=== PATIENT | female | born 1990 | race Caucasian/White ===

== ENCOUNTER 2019-10-24 18:37 | Emergency (ER) | payer MEDICAID, SELFPAY ==
[2019-10-24 18:56] VITALS: BP 140/93; PULSE 117; RESP 16; TEMP 36.8; O2SAT 97
--- NOTE | 2019-10-24 18:57 | ED_ITS ---
HPI - Abdominal Pain General: Chief Complaint: General Medical Stated Complaint: ABD/BACK PAIN Time Seen by Provider: 10/24/19 18:46 Source: patient Mode of arrival: ambulatory Limitations: no limitations History of Present Illness: HPI narrative: Patient is a 29-year-old female who presents to ED today with multiple medical complaints; patient states earlier today she was having a left lower abdominal pain as well as left flank pain that seem to radiate around; she states she has had this pain intermittently for years and is convinced it is related to her heart; she apparently was told at one point from a provider in a women's alf that she had a hole in her heart ; patient denies chest pain, shortness of breath, lightheadedness, dizziness, exercise intolerance; what she reports is intermittent abdominal and back pains; she has been seen by her PCP Dr. Fuentes for this previously; she denies changes in urinary or bowel habits; denies fever/chills; patient is a r ather poor historian and it is hard to follow her history; she keeps telling me she was diagnosed with heart previously. MD elicited complaint: abdominal pain Onset (ago): year(s) Pain Consistency: intermittent Associated Symptoms: Denies chills, diarrhea, dysuria, fever(s), heartburn, nausea, syncope and vomiting Review of Systems Const: Denies: fever, chills, body aches, fatigue or malaise Eyes: Denies: change in vision or blurry vision ENMT: Denies: throat pain, enlarged tonsils or painful swallowing Card: Denies: chest pain, palpitations, irregular heart rhythm, edema, swelling of feet/ankles, lightheadedness, syncope, pre-syncope, shortness of breath on exertion, shortness of breath when lying down or leg pain with exertion Resp: Denies: shortness of breath, productive cough, pain on inspiration, coughing up blood or chest congestion GI: Reports: abdominal pain; Denies: nausea, vomiting, heartburn/indigestion or diarrhea : Reports: flank pain; Denies: difficulty urinating, painful urination, urinary frequency, urinary urgency, urinary hesitancy or urinary dribbling Musc: Denies: neck pain, back pain, extremity pain, extremity swelling, joint pain or joint swelling Skin/Breast: Denies: rash Neuro: Denies: headache, numbness in extremities, weakness in extremities, changes in sensation or lack of coordination PFSH ED PFSH: Statuses (acute, chronic, etc) shown below reflect problem list status as previously entered and may not be historically accurate Social History Smoking and tobacco status: never smoked Physical Exam Const: COMMON NORMALS: no apparent distress, average body habitus, oriented x3, no limitations, alert and well nourished HENMT: COMMON NORMALS: normocephalic, head/scalp atraumatic, external ears normal, EAC's normal, TM's normal bilaterally and external nose normal HEAD & SCALP: normocephalic and atraumatic FACE & SINUS: normal facial exam NOSE: external nose normal EXTERNAL EAR: Yes external ears normal EXTERNAL AUDITORY CANAL: EAC's normal TYMPANIC MEMBRANE: TM's normal bilaterally THROAT: posterior oropharynx normal, tonsils normal and uvula midline Eye: COMMON NORMALS: PERRL and EOMs intact bilaterally PUPIL: Yes PERRL Neck/C-Spine: COMMON NORMALS: full ROM, no lymphadenopathy, supple and no meningeal signs Lymph: LYMPHATIC: no lymphadenopathy noted Resp: COMMON NORMALS: normal respiratory effort and clear to auscultation bilaterally AUSCULTATION: clear to auscultation bilaterally Cardio: COMMON NORMALS: regular rhythm RATE: tachycardic (mild) RHYTHM: regular rhythm GI: COMMON NORMALS: normal to inspection, nondistended, normoactive bowel sounds, soft to palpation, non-tender, no hepatosplenomegaly and no masses PALPATION: Yes soft and Yes no hepatosplenomegaly : BLADDER/KIDNEY EXAM: Yes CVA tenderness (very minor L) Back/Pelvis: COMMON NORMALS: thoracic and lumbar spine normal to inspection, thoraco-lumbar ROM normal and straight leg raise negative bilaterally GENERAL BACK: Yes CVA tenderness (very minor L) Extremity: COMMON NORMALS: normal to inspection Neuro: COMMON NORMALS: oriented x3 SENSORIUM/ORIENTATION: Yes alert MENINGEAL SIGNS: Yes no meningeal signs Skin: COMMON NORMALS: no rashes or lesions noted GENERAL SKIN EXAM: no rashes or lesions noted Course Vital Signs: Vital signs: Vital Signs Temperature 98.2 F 10/24/19 18:56 Pulse Rate 116 H 10/24/19 20:58 Respiratory Rate 18 10/24/19 20:58 Blood Pressure 125/94 10/24/19 20:58 Pulse Oximetry 96 02/06/20 20:58 MDM - Abdominal Pain MDM Narrative: Medical decision making narrative: Patient's physical exam is unremarkable. Her lab work today is non-concerning. She does have blood in her urine however is currently on her menstrual cycle. She was found to be tachycardic throughout her stay. Patient's symptoms have been intermittent for years. She has been seen by PCP for this. There does not seem to be any new concerns today. I do not feel any additional work-up is indicated on today's visit. Recommend she contact Dr. Fuentes for continued symptoms to see if any further work-up from an outpatient might be indicated for patient. Lab Data: Labs: Lab Results 10/24/19 10/24/19 10/24/19 Range/Units 19:09 19:09 19:09 WBC 9.2 (4.0-10.0) 10^3/ uL RBC 4.02 L (4.1-5.3) 10^6/u L Hgb 12.7 (11.5-15.3) g/dL Hct 37.1 (37.0-47.0) % MCV 92.3 (81-99) fL MCH 31.6 (28.0-34.0) pg MCHC 34.2 (30.0-36.0) g/dL RDW 12.3 (12.1-15.1) % Plt Count 342 (130-400) 10^3/c mm MPV 9.3 (7.4-10.4) fL Neut % (Auto) 57.6 % Lymph % (Auto) 31.3 % Roosevelt % (Auto) 8.5 % Eos % (Auto) 1.9 % Baso % (Auto) 0.5 % Neut # (Auto) 5.3 (1.8-7.7) 10^3/u L Lymph # (Auto) 2.9 (0.8-4.8) 10^3/u L Roosevelt # (Auto) 0.8 (0.2-0.9) 10^3/u L Eos # (Auto) 0.2 (0.0-0.8) 10^3/u L Baso # (Auto) 0.1 (0.0-0.1) 10^3/u L Nucleated RBC % (a uto) 0 % Nucleated RBCs # 0.0 /100WBC Sodium 138 (136-145) mmol/L Potassium 3.5 (3.5-5.1) mmol/L Chloride 101 (98-107) mmol/L Carbon Dioxide 25 (22-29) mmol/L Anion Gap 15.5 (5-19) BUN 12 (6-20) mg/dL Creatinine 1.0 H (0.5-0.9) mg/dL GFR Calculation 66.0 L (90-130) mL/min Glucose 129 H (65-115) mg/dL Calcium 10.1 (8.5-10.5) mg/dL Total Bilirubin 0.3 (0.15-1.2) mg/dL AST 22 (0-32) U/L ALT 18 (0-33) U/L Alkaline Phosphata se 115 H (35-105) IU/L Troponin T Gen 5 n g/L (0-10) ng/mL Total Protein 8.0 (6.6-8.7) g/dL Albumin 4.8 (3.5-5.2) g/dL Globulin 3.2 (1.3-4.6) g/dL Lipase 25 (13-60) U/L HCG, Qual Negative (Negative) Urine Color (Yellow) Urine Appearance (CLEAR) Urine pH (5-7) Ur Specific Gravit y (1.005-1.030) Urine Protein (Negative) Urine Glucose (UA) (Normal) Urine Ketones (Negative) Urine Occult Blood (Negative) Urine Nitrate (Negative) Urine Bilirubin (NEGATIVE) Urine Urobilinogen (Negative) mg/dL Ur Leukocyte Yoanna ase (Negative) Urine RBC (0-2) /hpf Urine WBC (0-5) /hpf Ur Squamous Epith Cells (0-5) Urine Bacteria (NONE) Urine Opiates Scre en (Negative) ng/mL Ur Barbiturates Sc reen (Negative) ng/mL Ur Phencyclidine S crn (Negative) ng/mL Ur Amphetamines Sc reen (Negative) ng/mL U Benzodiazepines Scrn (Negative) ng/mL Urine Cocaine Scre en (Negative) ng/mL U Marijuana (THC) Screen (Negative) ng/mL 10/24/19 10/24/19 10/24/19 Range/Units 19:09 19:32 19:32 WBC (4.0-10.0) 10^3/ uL RBC (4.1-5.3) 10^6/u L Hgb (11.5-15.3) g/dL Hct (37.0-47.0) % MCV (81-99) fL MCH (28.0-34.0) pg MCHC (30.0-36.0) g/dL RDW (12.1-15.1) % Plt Count (130-400) 10^3/c mm MPV (7.4-10.4) fL Neut % (Auto) % Lymph % (Auto) % Roosevelt % (Auto) % Eos % (Auto) % Baso % (Auto) % Neut # (Auto) (1.8-7.7) 10^3/u L Lymph # (Auto) (0.8-4.8) 10^3/u L Roosevelt # (Auto) (0.2-0.9) 10^3/u L Eos # (Auto) (0.0-0.8) 10^3/u L Baso # (Auto) (0.0-0.1) 10^3/u L Nucleated RBC % (a uto) % Nucleated RBCs # /100WBC Sodium (136-145) mmol/L Potassium (3.5-5.1) mmol/L Chloride (98-107) mmol/L Carbon Dioxide (22-29) mmol/L Anion Gap (5-19) BUN (6-20) mg/dL Creatinine (0.5-0.9) mg/dL GFR Calculation (90-130) mL/min Glucose (65-115) mg/dL Calcium (8.5-10.5) mg/dL Total Bilirubin (0.15-1.2) mg/dL AST (0-32) U/L ALT (0-33) U/L Alkaline Phosphata se (35-105) IU/L Troponin T Gen 5 n g/L 7 (0-10) ng/mL Total Protein (6.6-8.7) g/dL Albumin (3.5-5.2) g/dL Globulin (1.3-4.6) g/dL Lipase (13-60) U/L HCG, Qual (Negative) Urine Color Yellow (Yellow) Urine Appearance Turbid (CLEAR) Urine pH 6 (5-7) Ur Specific Gravit y 1.025 (1.005-1.030) Urine Protein Neg (Negative) Urine Glucose (UA) Norm (Normal) Urine Ketones Negative (Negative) Urine Occult Blood 3+ H (Negative) Urine Nitrate Negative (Negative) Urine Bilirubin Neg (NEGATIVE) Urine Urobilinogen 4 H (Negative) mg/dL Ur Leukocyte Yoanna ase Negative (Negative) Urine RBC >100 H (0-2) /hpf Urine WBC 5-10 H (0-5) /hpf Ur Squamous Epith Cells 5-10 H (0-5) Urine Bacteria 3+ H (NONE) Urine Opiates Scre en Negative (Negative) ng/mL Ur Barbiturates Sc reen Negative (Negative) ng/mL Ur Phencyclidine S crn Negative (Negative) ng/mL Ur Amphetamines Sc reen Negative (Negative) ng/mL U Benzodiazepines Scrn Negative (Negative) ng/mL Urine Cocaine Scre en Negative (Negative) ng/mL U Marijuana (THC) Screen Negative (Negative) ng/mL Discharge Plan Discharge Patient Disposition: Home, Self-Care Clinical Impression: Multiple complaints Condition: Stable Prescriptions: No Action Anxiety Pill RF: 0 aspirin 325 mg Tablet 325 mg PO DAILY RF: 0 Sleep Aid (doxylamine) 25 mg Tablet 25 mg PO Q6H PRN (Reason: Sleep) RF: 0 Discharge Orders: Discharge Order (Routine); Ordered 10/24/19 Ordered By: Ana Alanis Referrals: Emory Fuentes MD [Primary Care Provider] - Discharge Diet: Usual diet Discharge Activity: Resume usual activity Activity Restrictions/Additional Instructions: As discussed your work-up reveals no emergent process. Please follow-up with Dr. Fuentes for continued symptoms. Discharge Date/Time: 10/24/19 20:56 Coding Level of Care Code ED Unloader Operator for Chg Fwd Exam Problem Focused
--- NOTE | 2019-10-24 19:19 | ECG_ITS ---
Measurements Intervals [place] Rate: 106 P: 36 RI: 145 QRS: 17 QRSD: 101 T: 17 QT: 345 QTc: 459 SINUS TACHYCARDIA ABNORMAL RHYTHM ECG Compared to ECG 05/08/2019 23:25:48 Sinus rhythm no longer present Sinus arrhythmia no longer present Electronically Signed On 10-25-2019 22:18:07 GLOBAL ACCOUNT EXECUTIVE by Anders Hardy M.D. [id number]
[2019-10-24 19:23] LABS: Basophils # 0.1 10^3/uL (0.0-0.1); Basophils % 0.5 %; Eosinophils # 0.2 10^3/uL (0.0-0.8); Eosinophils % 1.9 %; Hematocrit 37.1 % (37.0-47.0); Hemoglobin 12.7 g/dL (11.5-15.3); Lymphocytes # 2.9 10^3/uL (0.8-4.8); Lymphocytes % 31.3 %; Mean Corpuscular HGB Conc 34.2 g/dL (30.0-36.0); Mean Corpuscular Hemoglobin 31.6 pg (28.0-34.0); Mean Corpuscular Volume 92.3 fL (81-99); Mean Platelet Volume 9.3 fL (7.4-10.4); Monocytes # 0.8 10^3/uL (0.2-0.9); Monocytes % 8.5 %; Neutrophils # 5.3 10^3/uL (1.8-7.7); Neutrophils % 57.6 %; Nucleated Red Blood Cells % 0 %; Platelet Count 342 10^3/cmm (130-400); Red Blood Count 4.02 10^6/uL (4.1-5.3); Red Cell Distribution Width 12.3 % (12.1-15.1); White Blood Count 9.2 10^3/uL (4.0-10.0)
[2019-10-24 19:44] LABS: HCG, Serum Qual Negative (Negative)
[2019-10-24 19:46] LABS: Alanine Aminotransferase 18 U/L (0-33); Albumin Level 4.8 g/dL (3.5-5.2); Alkaline Phosphatase 115 IU/L (35-105); Anion Gap 15.5 (5-19); Aspartate Amino Transferase 22 U/L (0-32); Blood Urea Nitrogen 12 mg/dL (6-20); Calcium 10.1 mg/dL (8.5-10.5); Carbon Dioxide 25 mmol/L (22-29); Chloride 101 mmol/L (98-107); Globulin 3.2 g/dL (1.3-4.6); Glucose 129 mg/dL (65-115); Lipase 25 U/L (13-60); Potassium 3.5 mmol/L (3.5-5.1); Sodium 138 mmol/L (136-145); Total Bilirubin 0.3 mg/dL (0.15-1.2)
[2019-10-24 20:05] LABS: Amphetamines Screen Urine Negative (Negative); Barbiturates Screen Urine Negative (Negative); Benzodiazepines Screen Urine Negative (Negative); Cocaine Screen Urine Negative (Negative); Opiate Screen Urine Negative (Negative); PCP Screen Urine Negative (Negative); THC Screen Urine Negative (Negative)
[2019-10-24 20:06] LABS: Add Urine Microscopic? YES; Bilirubin Urine Neg (NEGATIVE); Glucose Urine UA Norm (Normal); Ketones Urine Negative (Negative); Leukocyte Esterase Urine Negative (Negative); Protein Urine Neg (Negative); Urine Appearance Turbid (CLEAR); Urine Color Yellow (Yellow)
[2019-10-24 20:08] LABS: Nitrate Urine Negative (Negative)
[2019-10-24 20:10] LABS: Blood Urine 3+ (Negative); Specific Gravity, Urine 1.025 (1.005-1.030); Urobilinogen Urine 4 mg/dL (Negative); pH Urine 6 (5-7)
[2019-10-24 20:11] LABS: Add Urine Culture? Yes; Bacteria Urine 3+; RBC Urine >100 /hpf (0-2)
[2019-10-24 20:30] LABS: Troponin T (5th) Once 7 ng/mL (0-10)
[2019-10-24 20:58] VITALS: BP 125/94; PULSE 116; RESP 18; O2SAT 96
== END 2019-10-24 20:56 | disposition home or self-care (01) ==
PROVIDERS: Emergency Provider Physician Assistant; Family Provider Family Medicine; PCP Family Medicine
DX: R10.32 Left lower quadrant pain (principal); M54.9 Dorsalgia, unspecified
CPT/HCPCS: 80053; 80307; 81001; 83690; 84484; 84703; 85025; 87086; 93005; 99282; 99283; A9270

== ENCOUNTER 2019-10-24 23:46 | Emergency (ER) | payer MEDICAID, SELFPAY ==
[2019-10-24 23:48] VITALS: BP 166/126; PULSE 154; RESP 30; TEMP 37.1; O2SAT 100; BMI 28.3
--- NOTE | 2019-10-24 23:55 | ED_ITS ---
HPI - General Adult General: Chief complaint: General Medical Stated complaint: N/V Time Seen by Provider: 10/24/19 23:48 Source: patient Mode of arrival: EMS Limitations: no limitations History of Present Illness: HPI narrative: Patient is a 29-year-old female who presents to ED today yet again for evaluation; patient was just released from our facility a few hours ago. At that visit she complained of chronic intermittent left abdominal and flank pain. Her labs were unremarkable during that visit. EMS states they were called for complaints of nausea and vomiting however during my exam with patient she complains of chest pains and low back pain. She states she is not having any symptoms related to her previous visit. She denies shortness of breath, difficulty breathing. Denies fever/chills. Denies lightheadedness/dizziness. Associated symptoms: Reports chest pain; Deny dyspnea, headache(s), nausea, rash, palpitations, syncope or vomiting Review of Systems Const: Denies: fever, chills, body aches, change in appetite, change in weight or fatigue Eyes: Denies: change in vision or blurry vision ENMT: Denies: throat pain, enlarged tonsils or painful swallowing Card: Reports: chest pain; Denies: palpitations, irregular heart rhythm, edema, lightheadedness, syncope, pre-syncope, shortness of breath on exertion, shortness of breath when lying down, leg pain with exertion or bluish discoloration of hands/feet Resp: Denies: shortness of breath, productive cough, non-productive cough, pain on inspiration, change in phlegm color, coughing up blood or chest congestion GI: Denies: abdominal pain, nausea or vomiting : Denies: flank pain, difficulty urinating, painful urination, urinary frequency or urinary urgency Musc: Reports: back pain; Denies: neck pain, extremity pain or extremity swelling Skin/Breast: Denies: rash Neuro: Denies: headache, numbness in extremities, weakness in extremities, changes in sensation, lack of coordination or dizziness PFSH ED PFSH: Statuses (acute, chronic, etc) shown below reflect problem list status as previously entered and may not be historically accurate Social History Smoking and tobacco status: never smoked Female Reproductive History: Date of last menstrual period: 10/24/19 Physical Exam Const: COMMON NORMALS: no apparent distress, average body habitus, oriented x3, no limitations, alert and well nourished HENMT: COMMON NORMALS: normocephalic and head/scalp atraumatic HEAD & SCALP: normocephalic and atraumatic Eye: COMMON NORMALS: PERRL and EOMs intact bilaterally PUPIL: Yes PERRL Neck/C-Spine: COMMON NORMALS: full ROM, no lymphadenopathy and no meningeal signs Chest: COMMONS NORMALS: inspection of chest normal and palpation of breasts normal Resp: COMMON NORMALS: normal respiratory effort and clear to auscultation bilaterally AUSCULTATION: clear to auscultation bilaterally Cardio: COMMON NORMALS: regular rhythm RATE: tachycardic RHYTHM: regular rhythm GI: COMMON NORMALS: normal to inspection, nondistended, normoactive bowel sounds, soft to palpation, non-tender, no hepatosplenomegaly and no masses PALPATION: Yes soft and Yes no hepatosplenomegaly : COMMON NORMALS: Yes no CVA tenderness BLADDER/KIDNEY EXAM: Yes no CVA tenderness Back/Pelvis: COMMON NORMALS: no CVA tenderness, thoracic and lumbar spine normal to inspection, no thoracic nor lumbar tenderness, thoraco-lumbar ROM normal and straight leg raise negative bilaterally Extremity: COMMON NORMALS: normal to inspection Neuro: GANESH COMA SCALE: document GCS findings Ganesh coma scale eye opening: Spontaneous Ganesh coma scale verbal response: Orientated [place] coma scale motor response: Obey commands Ganesh coma scale total score: 15 COMMON NORMALS: oriented x3, CN's II-XII intact bilaterally, moves all extremities, no focal motor deficits and no sensory deficits noted SENSORIUM/ORIENTATION: Yes alert MENINGEAL SIGNS: Yes no meningeal signs Skin: COMMON NORMALS: no rashes or lesions noted GENERAL SKIN EXAM: no rashes or lesions noted Course Reevaluation(s): Reevaluation #1: Reevaluation of patient reveals her sleeping in her room in no acute distress. She does not complain of chest pain anymore. Has some complaint of lower lumbar pain that she states she has had previously. This does not seem to be reproducible. She has no urinary complaints. Vital Signs: Vital signs: Vital Signs Temperature 98.7 F 10/24/19 23:48 Pulse Rate 115 H 10/25/19 00:34 Respiratory Rate 18 10/25/19 00:34 Blood Pressure 137/85 10/25/19 00:34 Pulse Oximetry 99 10/25/19 00:34 MDM - General Adult MDM Narrative: Medical decision making narrative: This makes patient's second visit today for various symptoms. Patient has been seen in our facility several times for multiple medical complaints. She clinically appears in no acute dist ress on both visits. Her labs performed on her last visit were non-concerning. EKG and troponin were repeated on today's visit and showed no acute changes. CXR is normal. She does have unexplained tachycardia-possibly related to anxiety. There does not seem to be any infectious process, pericarditis/endocarditis, WPW or other accessory pathway syndromes. She is in no acute distress currently. Recommend she follow-up with Dr. Fuentes for continued symptoms. Lab Data: Labs: Lab Results 10/25/19 Range/Units 00:08 Troponin T Gen 5 n g/L 6 (0-10) ng/mL Imaging Data^: CXR: My impression: NAD EKG Data^: EKG 1: EKG interpretation date: 10/25/19 EKG interpretation time: 00:13 Prior EKG tracings: available for review Interpretation: Sinus tachycardia Rate [address] elevation or depression noted No acute changes noted from EKG from previous visit Discharge Plan Discharge Patient Disposition: Home, Self-Care Clinical Impression: Anxiety Condition: Stable Prescriptions: No Action Anxiety Pill RF: 0 aspirin 325 mg Tablet 325 mg PO DAILY RF: 0 Sleep Aid (doxylamine) 25 mg Tablet 25 mg PO Q6H PRN (Reason: Sleep) RF: 0 Discharge Orders: Discharge Order (Routine); Ordered 10/25/19 Ordered By: Ana Alanis Referrals: Emory Fuentes MD [Primary Care Provider] - Discharge Diet: Usual diet Discharge Activity: Increase activity as tolerated Activity Restrictions/Additional Instructions: Follow up with Dr. Fuentes as soon as possible for continued symptoms. Coding Level of Care Code ED Remote Sensing Technician for Chg Fwd Exam Problem Focused
--- NOTE | 2019-10-25 00:04 | ECG_ITS ---
Measurements Intervals [place] Rate: 121 P: 49 CA: 151 QRS: 7 QRSD: 102 T: 32 QT: 358 QTc: 508 SINUS TACHYCARDIA NONSPECIFIC T-WAVE ABNORMALITY ABNORMAL RHYTHM ECG Compared to ECG 05/08/2019 23:25:48 T-wave abnormality now present Sinus rhythm no longer present Sinus arrhythmia no longer present Electronically Signed On 10-25-2019 22:18:17 STUDENT RECORDS SPECIALIST by Anders Hardy M.D. [id number]
--- NOTE | 2019-10-25 00:05 | XR_ITS ---
WS: [id number] Portable AP upright chest, 10/25/2019 Clinical Data: cough/congestion Comparison: PA and lateral chest, 05/08/2019. Findings: No nodules, masses or effusions are seen. The heart is normal. The pulmonary vascularity is not increased. No pneumonia or pneumothorax is seen. 2 leads are on the chest wall. XR/XR chest 1V portable [id number] Impression: Negative chest.
[2019-10-25] MEDS: sodium chloride 0.9% 1,000 ML 999 ML IV (00:30)
[2019-10-25 00:31] LABS: Troponin T (5th) Once 6 ng/mL (0-10)
[2019-10-25] MEDS: LORazepam 2 mg/mL INJ 1 mL 1 MG IVP (00:31)
[2019-10-25 00:34] VITALS: BP 137/85; PULSE 115; RESP 18; O2SAT 99
[2019-10-25 01:35] VITALS: BP 103/73; PULSE 105; RESP 16; TEMP 36.4; O2SAT 96
== END 2019-10-25 01:37 | disposition home or self-care (01) ==
PROVIDERS: Emergency Provider Physician Assistant; Family Provider Family Medicine; PCP Family Medicine
DX: F41.9 Anxiety disorder, unspecified (principal); R40.2412 Glasgow coma scale score 13-15, at arrival to emergency department
CPT/HCPCS: 71045; 84484; 93005; 96361; 96374; 96375; 99282; 99283; J2060; J7030

== ENCOUNTER 2019-10-25 12:52 | Emergency (ER) | payer MEDICAID, SELFPAY ==
[2019-10-25] VITALS (23 sets, daily range): BP systolic 114–130; BP diastolic 80–94; PULSE 98–116; RESP 15–22; O2SAT 96–100; BMI 25.7
--- NOTE | 2019-10-25 12:54 | ED_ITS ---
Entered by Quinn Calderon, acting as scribe for HPI - Chest Pain General: Chief Complaint: Chest Pain Stated Complaint: Chest Pain Time Seen by Provider: 10/25/19 13:11 History of Present Illness: HPI narrative: 29 yo female presents with chest pain. Pt was sent here from [facility]. Pt states that she has been short of breath. Pt is lethargic. Pt won't open her eyes to answer questions. Patient appears to be under the influence of a sedative at the time she was first seen. Timing of current episode: increasing Associated symptoms: Deny abdominal pain, dyspnea, fever(s), nausea, palpitations, syncope or vomiting Review of Systems Const: Reports: fatigue and malaise; Denies: fever, chills, body aches or night sweats Eyes: Denies: change in vision or blurry vision ENMT: Denies: throat pain, oral sores/lesions, dental pain, nasal discharge or nasal congestion Card: Denies: chest pain, palpitations, irregular heart rhythm, edema, syncope, shortness of breath on exertion, shortness of breath when lying down or leg pain with exertion Resp: Denies: shortness of breath, productive cough, non-productive cough or wheezing GI: Denies: abdominal pain, nausea, vomiting, vomiting blood, coffee grounds in vomit, difficulty swallowing, heartburn/indigestion, diarrhea, constipation, cramping, blood in stool or black tarry stool : Denies: flank pain, painful urination, urinary frequency, urinary urgency, urinary incontinence or blood in urine Musc: Denies: neck pain, back pain, extremity pain, extremity swelling, joint pain or joint swelling Skin/Breast: Denies: rash, itching or redness Neuro: Denies: headache, numbness in extremities, weakness in extremities, changes in sensation, lack of coordination, difficulty walking, frequent falls, dizziness, vertigo or confusion Psych: Denies: anxiety, depression, loss of interest, visual hallucinations, auditory hallucinations, suicidal ideation or homicidal ideation Endo: Denies: excessive urination, excessive thirst, tired all the time or cold intolerance Sang/Lymph: Denies: easy bruising, easy bleeding, petechiae, enlarged lymph nodes or tender lymph nodes PFSH ED PFSH: Statuses (acute, chronic, etc) shown below reflect problem list status as previously entered and may not be historically accurate Social History Smoking and tobacco status: never smoked Female Reproductive History: Date of last menstrual period: 10/24/19 Physical Exam Const: COMMON NORMALS: no apparent distress and average body habitus GENERAL APPEARANCE: cooperative, well kempt and lethargic ORIENTATION/CONSCI OUSNESS: Yes lethargic HENMT: COMMON NORMALS: normocephalic, head/scalp atraumatic, EAC's normal, TM's normal bilaterally, external nose normal, moist oral mucous membranes and oropharynx normal HEAD & SCALP: normocephalic and atraumatic NOSE: external nose normal EXTERNAL AUDITORY CANAL: EAC's normal TYMPANIC MEMBRANE: TM's normal bilaterally MOUTH: oral and palatal mucosa normal, lip normal and tongue normal THROAT: posterior oropharynx normal and tonsils normal Eye: OTHER: lateral nystagmus Neck/C-Spine: COMMON NORMALS: full ROM, no lymphadenopathy, supple, no meningeal signs and thyroid normal THYROID: thyroid normal and asymmetrical Lymph: LYMPHATIC: no lymphadenopathy noted Resp: COMMON NORMALS: normal respiratory effort, no retractions, no use of accessory muscles and clear to auscultation bilaterally AUSCULTATION: clear to auscultation bilaterally Cardio: COMMON NORMALS: regular rate and regular rhythm RATE: regular rate RHYTHM: regular rhythm HEART SOUNDS: no murmurs GI: COMMON NORMALS: normal to inspection, nondistended, normoactive bowel so unds, soft to palpation and no hepatosplenomegaly PALPATION: Yes soft and Yes no hepatosplenomegaly : COMMON NORMALS: Yes no CVA tenderness BLADDER/KIDNEY EXAM: Yes no CVA tenderness Back/Pelvis: COMMON NORMALS: no CVA tenderness LUMBAR SPINE/LOWER BACK: Yes normal to inspection Extremity: COMMON NORMALS: no clubbing, cyanosis or edema, no calf tenderness and no pedal edema Neuro: SENSORIUM/ORIENTATION: Yes lethargic MENINGEAL SIGNS: Yes no meningeal signs Psych: APPEARANCE: Yes well kempt Skin: COMMON NORMALS: no rashes or lesions noted and skin turgor normal GENERAL SKIN EXAM: no rashes or lesions noted and turgor normal Course ED course: The time work-up is complete patient is feeling much better initially she appears that she is under the influence of symptoms improved we will go ahead and discharge her home encouraged to follow-up with her primary care doctor. She is completely resolved awake and alert and oriented x3 at this time. Reviewed her previous ER visits this is her third visit in less than 24 hours Vital Signs: Vital signs: Vital Signs Pulse Rate 98 10/25/19 15:43 Respiratory Rate 16 10/25/19 15:43 Blood Pressure 114/80 10/25/19 15:43 Pulse Oximetry 98 10/25/19 15:43 MDM - Chest Pain Lab Data: Labs: Lab Results 10/25/19 10/25/19 10/25/19 Range/Units 14:02 14:08 14:08 WBC 7.7 (4.0-10.0) 10^3/ uL RBC 3.94 L (4.1-5.3) 10^6/u L Hgb 12.4 (11.5-15.3) g/dL Hct 36.2 L (37.0-47.0) % MCV 91.9 (81-99) fL MCH 31.5 (28.0-34.0) pg MCHC 34.3 (30.0-36.0) g/dL RDW 12.5 (12.1-15.1) % Plt Count 344 (130-400) 10^3/c mm MPV 9.3 (7.4-10.4) fL Neut % (Auto) 66.3 % Lymph % (Auto) 24.4 % Glenn % (Auto) 7.9 % Eos % (Auto) 0.8 % Baso % (Auto) 0.5 % Neut # (Auto) 5.1 (1.8-7.7) 10^3/u L Lymph # (Auto) 1.9 (0.8-4.8) 10^3/u L Glenn # (Auto) 0.6 (0.2-0.9) 10^3/u L Eos # (Auto) 0.1 (0.0-0.8) 10^3/u L Baso # (Auto) 0.0 (0.0-0.1) 10^3/u L Nucleated RBC % (a uto) 0 % Nucleated RBCs # 0.0 /100WBC D-Dimer (0-0.59) ug/mIFE U Sodium 141 (136-145) mmol/L Potassium 3.7 (3.5-5.1) mmol/L Chloride 105 (98-107) mmol/L Carbon Dioxide 23 (22-29) mmol/L Anion Gap 16.7 (5-19) BUN 8 (6-20) mg/dL Creatinine 0.8 (0.5-0.9) mg/dL GFR Calculation 85.4 L (90-130) mL/min Glucose 113 (65-115) mg/dL Calcium 10.1 (8.5-10.5) mg/dL Total Bilirubin 0.4 (0.15-1.2) mg/dL AST 22 (0-32) U/L ALT 18 (0-33) U/L Alkaline Phosphata se 114 H (35-105) IU/L Total Protein 8.2 (6.6-8.7) g/dL Albumin 4.9 (3.5-5.2) g/dL Globulin 3.3 (1.3-4.6) g/dL Lipase 18 (13-60) U/L Urine Opiates Scre en Negative (Negative) ng/mL Ur Barbiturates Sc reen Negative (Negative) ng/mL Ur Phencyclidine S crn Negative (Negative) ng/mL Ur Amphetamines Sc reen Negative (Negative) ng/mL U Benzodiazepines Scrn Negative (Negative) ng/mL Urine Cocaine Scre en Negative (Negative) ng/mL U Marijuana (THC) Screen Negative (Negative) ng/mL 10/25/19 Range/Units 14:08 WBC (4.0-10.0) 10^3/ uL RBC (4.1-5.3) 10^6/u L Hgb (11.5-15.3) g/dL Hct (37.0-47.0) % MCV (81-99) fL MCH (28.0-34.0) pg MCHC (30.0-36.0) g/dL RDW (12.1-15.1) % Plt Count (130-400) 10^3/c mm MPV (7.4-10.4) fL Neut % (Auto) % Lymph % (Auto) % [place] % (Auto) % Eos % (Auto) % Baso % (Auto) % Neut # (Auto) (1.8-7.7) 10^3/u L Lymph # (Auto) (0.8-4.8) 10^3/u L Glenn # (Auto) (0.2-0.9) 10^3/u L Eos # (Auto) (0.0-0.8) 10^3/u L Baso # (Auto) (0.0-0.1) 10^3/u L Nucleated RBC % (a uto) % Nucleated RBCs # /100WBC D-Dimer <= 0.27 (0-0.59) ug/mIFE U Sodium (136-145) mmol/L Potassium (3.5-5.1) mmol/L Chloride (98-107) mmol/L Carbon Dioxide (22-29) mmol/L Anion Gap (5-19) BUN (6-20) mg/dL Creatinine (0.5-0.9) mg/dL GFR Calculation (90-130) mL/min Glucose (65-115) mg/dL Calcium (8.5-10.5) mg/dL Total Bilirubin (0.15-1.2) mg/dL AST (0-32) U/L ALT (0-33) U/L Alkaline Phosphata se (35-105) IU/L Total Protein (6.6-8.7) g/dL Albumin (3.5-5.2) g/dL Globulin (1.3-4.6) g/dL Lipase (13-60) U/L Urine Opiates Scre en (Negative) ng/mL Ur Barbiturates Sc reen (Negative) ng/mL Ur Phencyclidine S crn (Negative) ng/mL Ur Amphetamines Sc reen (Negative) ng/mL U Benzodiazepines Scrn (Negative) ng/mL Urine Cocaine Scre en (Negative) ng/mL U Marijuana (THC) Screen (Negative) ng/mL Discharge Plan Discharge Patient Disposition: Home, Self-Care Clinical Impression: Anxiety, Atypical chest pain, Altered mental status associated with intoxication Condition: Stable Prescriptions: No Action Anxiety Pill RF: 0 aspirin 325 mg Tablet 325 mg PO DAILY RF: 0 Sleep Aid (doxylamine) 25 mg Tablet 25 mg PO Q6H PRN (Reason: Sleep) RF: 0 Referrals: Emory Fuentes MD [Primary Care Provider] - Discharge Diet: Usual diet Discharge Activity: Increase activity as tolerated Patient Instructions: Abdominal Pain - Adult Activity Restrictions/Additional Instructions: Follow-up with Dr. Fuentes as needed Interventions: ED Discharge Assessment Last Done: 10/25/19 15:43 Discharge Date/Time: 10/25/19 15:51 Coding Level of Care Code ED International Sales Representative for Chg Fwd Exam Problem Focused The documentation recorded by the Kvng short Kialy, accurately reflects the service I personally performed and the decisions made by Huang dill Curtis L, Oct 25, 2019 12:52
--- NOTE | 2019-10-25 13:34 | ECG_ITS ---
Measurements Intervals [place] Rate: 123 P: 39 OR: 157 QRS: 1 QRSD: 91 T: 15 QT: 411 QTc: 588 SINUS TACHYCARDIA INCOMPLETE RIGHT BUNDLE BRANCH BLOCK [90+ ms QRS DURATION, TERMINAL R IN V1/V2, 4 NONSPECIFIC T-WAVE ABNORMALITY ABNORMAL RHYTHM ECG Compared to ECG 05/08/2019 23:25:48 Incomplete right bundle-branch block now present T-wave abnormality now present Sinus rhythm no longer present Sinus arrhythmia no longer present Electronically Signed On 10-25-2019 22:16:47 MONOTYPE MACHINIST by Anders Hardy M.D. [id number]
[2019-10-25 14:26] LABS: Basophils % 0.5 %; Eosinophils # 0.1 10^3/uL (0.0-0.8); Eosinophils % 0.8 %; Hematocrit 36.2 % (37.0-47.0); Hemoglobin 12.4 g/dL (11.5-15.3); Lymphocytes # 1.9 10^3/uL (0.8-4.8); Lymphocytes % 24.4 %; Mean Corpuscular HGB Conc 34.3 g/dL (30.0-36.0); Mean Corpuscular Hemoglobin 31.5 pg (28.0-34.0); Mean Corpuscular Volume 91.9 fL (81-99); Mean Platelet Volume 9.3 fL (7.4-10.4); Monocytes # 0.6 10^3/uL (0.2-0.9); Monocytes % 7.9 %; Neutrophils # 5.1 10^3/uL (1.8-7.7); Neutrophils % 66.3 %; Nucleated Red Blood Cells % 0 %; Platelet Count 344 10^3/cmm (130-400); Red Blood Count 3.94 10^6/uL (4.1-5.3); Red Cell Distribution Width 12.5 % (12.1-15.1); White Blood Count 7.7 10^3/uL (4.0-10.0)
[2019-10-25 14:40] LABS: Alanine Aminotransferase 18 U/L (0-33); Albumin Level 4.9 g/dL (3.5-5.2); Alkaline Phosphatase 114 IU/L (35-105); Anion Gap 16.7 (5-19); Aspartate Amino Transferase 22 U/L (0-32); Blood Urea Nitrogen 8 mg/dL (6-20); Calcium 10.1 mg/dL (8.5-10.5); Carbon Dioxide 23 mmol/L (22-29); Chloride 105 mmol/L (98-107); Creatinine Clr Calc Pharmacy 84.7042; Globulin 3.3 g/dL (1.3-4.6); Glomerular Filtration Rate 85.4 mL/min (90-130); Glucose 113 mg/dL (65-115); Lipase 18 U/L (13-60); Potassium 3.7 mmol/L (3.5-5.1); Sodium 141 mmol/L (136-145); Total Bilirubin 0.4 mg/dL (0.15-1.2); Total Protein 8.2 g/dL (6.6-8.7)
[2019-10-25 15:12] LABS: Amphetamines Screen Urine Negative (Negative); Barbiturates Screen Urine Negative (Negative); Benzodiazepines Screen Urine Negative (Negative); Cocaine Screen Urine Negative (Negative); Opiate Screen Urine Negative (Negative); PCP Screen Urine Negative (Negative); THC Screen Urine Negative (Negative)
[2019-10-25 15:32] LABS: D Dimer <= 0.27 ug/mIFEU (0-0.59)
== END 2019-10-25 15:51 | disposition home or self-care (01) ==
PROVIDERS: Emergency Provider Family Medicine; Family Provider Family Medicine; PCP Family Medicine
DX: R07.89 Other chest pain (principal); F41.9 Anxiety disorder, unspecified; R41.82 Altered mental status, unspecified
CPT/HCPCS: 36415; 51701; 80053; 80307; 83690; 85025; 85378; 93005; 99283; A9270

== ENCOUNTER 2019-10-27 09:00 | Emergency (ER) | payer MEDICAID, SELFPAY ==
[2019-10-27 09:02] VITALS: BP 123/89; PULSE 120; RESP 18; TEMP 37.4; O2SAT 100; BMI 27.9
--- NOTE | 2019-10-27 09:09 | ED_ITS ---
Entered by Quinn Calderon, acting as scribe for Selena Fajardo DO HPI - General Adult General: Chief complaint: General Medical Stated complaint: ELEVATED HEART RATE Time Seen by Provider: 10/27/19 09:19 History of Present Illness: HPI narrative: 29 yo female presents with elevated heart rate. Pt states that her jaw is hurting on her right side. Pt states that she was trying to be seen at urgent care yesterday for her heart rate and wanted a steroid shot. Pt states that the Urgent care wouldn't give her one. MD complaint: elevated heart rate. Onset (ago): day(s) Radiation: other (jaw) Severity: mild Pain Consistency: constant Relieving factors: none Exacerbating factors: none Associated symptoms: Reports headache(s); Deny chest pain, diaphoresis, dyspnea, malaise, nausea, rash, palpitations, syncope or vomiting Treatments prior to arrival: none Review of Systems Const: Denies: fever, chills, body aches, change in appetite, change in weight, fatigue, malaise, night sweats or diaphoresis Eyes: Denies: change in vision, blurry vision, blind spots, photophobia, eye discharge, eye redness, yellow eyes or increased production of tears ENMT: Denies: throat pain, uvular edema, enlarged tonsils, painful swallowing, hoarseness, mouth pain or swelling of lips/tongue Card: Denies: chest pain, palpitations, irregular heart rhythm, edema, swelling of feet/ankles, lightheadedness, syncope, pre-syncope, shortness of breath on exertion or shortness of breath when lying down Resp: Denies: shortness of breath, productive cough, non-productive cough, wheezing, stridor, pain on inspiration or change in phlegm color GI: Denies: abdominal pain, nausea, vomiting, vomiting blood, coffee grounds in vomit, difficulty swallowing, heartburn/indigestion, feeling full early, constipation or bloating : Denies: flank pain, difficulty urinating, painful urination, urinary frequency, urinary urgency, urinary hesitancy or urinary dribbling Musc: Denies: neck pain, back pain, extremity pain, extremity swelling, joint pain, joint swelling, redness or joint warmth Skin/Breast: Denies: rash, itching, redness, sensitivity to light, skin pain, skin tenderness or skin swelling Neuro: Reports: headache; Denies: numbness in extremities, weakness in extremities, changes in sensation, lack of coordination, difficulty walking, frequent falls or dizziness Psych: Denies: anxiety, depression, mood swings, panic attacks, sleeping less, sleeping more, hopelessness or loss of interest Endo: Denies: excessive urination, excessive thirst or tired all the time PFSH ED PFSH: Statuses (acute, chronic, etc) shown below reflect problem list status as previously entered and may not be historically accurate Social History Smoking and tobacco status: never smoked Female Reproductive History: Date of last menstrual period: 10/27/19 Physical Exam Const: COMMON NORMALS: alert ORIENTATION/CONSCIOUSNESS: Yes oriented to person, Yes oriented to place and Yes oriented to time HENMT: THROAT: no uvular edema Neck/C-Spine: COMMON NORMALS: full ROM and thyroid normal GENERAL: Yes normal visual inspection THYROID: thyroid normal Lymph: LYMPHATIC: no lymphadenopathy noted Resp: COMMON NORMALS: clear to auscultation bilaterally AUSCULTATION: clear to auscultation bilaterally Cardio: COMMON NORMALS: regular rhythm RATE: tachycardic RHYTHM: regular rhythm GI: INSPECTION: Yes normal to inspection Back/Pelvis: THORACIC SPINE/UPPER BACK: Yes normal to inspection Neuro: SENSORIUM/ORIENTATION: Yes alert, Yes oriented to person, Yes oriented to place and Yes oriented to time Course ED course: Patient arrived via EMS. She has mild tachycardia upon arrival and is in no distress. Lab, EKG, CXR and UDS all unremarkable, given Tylenol 1 G PO for her jaw pain. She has been advised to follow up with her pcp. Vital Signs: Vital signs: Vital Signs Temperature 99.4 F 10/27/19 09:02 Pulse Rate 117 H 10/27/19 09:14 Respiratory Rate 16 10/27/19 10:50 Blood Pressure 117/87 10/27/19 09:42 Pulse Oximetry 100 10/27/19 10:50 MDM - General Adult Differential Diagnosis: Differential Diagnosis: Drug toxicity, thyroid abnormalities, dehydration. No obvious cause, recurrent pattern detected. Lab Data: Labs: Lab Results 10/27/19 10/27/19 10/27/19 Range/Units 08:41 08:41 09:45 WBC 8.3 (4.0-10.0) 10^3/ uL RBC 4.25 (4.1-5.3) 10^6/u L Hgb 13.7 (11.5-15.3) g/dL Hct 40.6 (37.0-47.0) % MCV 95.5 (81-99) fL MCH 32.2 (28.0-34.0) pg MCHC 33.7 (30.0-36.0) g/dL RDW 12.4 (12.1-15.1) % Plt Count 388 (130-400) 10^3/c mm MPV 9.4 (7.4-10.4) fL Neut % (Auto) 59.7 % Lymph % (Auto) 29.6 % [place] % (Auto) 7.5 % Eos % (Auto) 2.3 % Baso % (Auto) 0.5 % Neut # (Auto) 5.0 (1.8-7.7) 10^3/u L Lymph # (Auto) 2.5 (0.8-4.8) 10^3/u L [place] # (Auto) 0.6 (0.2-0.9) 10^3/u L Eos # (Auto) 0.2 (0.0-0.8) 10^3/u L Baso # (Auto) 0.0 (0.0-0.1) 10^3/u L Nucleated RBC % (a uto) 0 % Nucleated RBCs # 0.0 /100WBC Sodium 139 (136-145) mmol/L Potassium 3.9 (3.5-5.1) mmol/L Chloride 101 (98-107) mmol/L Carbon Dioxide 23 (22-29) mmol/L Anion Gap 18.9 (5-19) BUN 15 (6-20) mg/dL Creatinine 0.8 (0.5-0.9) mg/dL GFR Calculation 85.4 L (90-130) mL/min Glucose 124 H (65-115) mg/dL Calcium 9.9 (8.5-10.5) mg/dL Magnesium 2.3 (1.7-2.3) mg/dL Total Bilirubin 0.3 (0.15-1.2) mg/dL AST 21 (0-32) U/L ALT 19 (0-33) U/L Alkaline Phosphata se 116 H (35-105) IU/L Total Protein 8.4 (6.6-8.7) g/dL Albumin 5.1 (3.5-5.2) g/dL Globulin 3.3 (1.3-4.6) g/dL TSH 1.92 (0.27-4.20) uIU/ mL HCG, Qual Negative (Negative) Urine Color (Yellow) Urine Appearance (CLEAR) Urine pH (5-7) Ur Specific Gravit y (1.005-1.030) Urine Protein (Negative) Urine Glucose (UA) (Normal) Urine Ketones (Negative) Urine Occult Blood (Negative) Urine Nitrate (Negative) Urine Bilirubin (NEGATIVE) Urine Urobilinogen (Negative) mg/dL Ur Leukocyte Yoanna ase (Negative) Urine RBC (0-2) /hpf Urine WBC (0-5) /hpf Ur Squamous Epith Cells (0-5) Urine Bacteria (NONE) Urine Mucus Urine Opiates Scre en (Negative) ng/mL Ur Barbiturates Sc reen (Negative) ng/mL Ur Phencyclidine S crn (Negative) ng/mL Ur Amphetamines Sc reen (Negative) ng/mL U Benzodiazepines Scrn (Negative) ng/mL Urine Cocaine Scre en (Negative) ng/mL U Marijuana (THC) Screen (Negative) ng/mL 10/27/19 10/27/19 Range/Units 09:45 09:45 WBC (4.0-10.0) 10^3/ uL RBC (4.1-5.3) 10^6/u L Hgb (11.5-15.3) g/dL Hct (37.0-47.0) % MCV (81-99) fL MCH (28.0-34.0) pg MCHC (30.0-36.0) g/dL RDW (12.1-15.1) % Plt Count (130-400) 10^3/c mm MPV (7.4-10.4) fL Neut % (Auto) % Lymph % (Auto) % [place] % (Auto) % Eos % (Auto) % Baso % (Auto) % Neut # (Auto) (1.8-7.7) 10^3/u L Lymph # (Auto) (0.8-4.8) 10^3/u L [place] # (Auto) (0.2-0.9) 10^3/u L Eos # (Auto) (0.0-0.8) 10^3/u L Baso # (Auto) (0.0-0.1) 10^3/u L Nucleated RBC % (a uto) % Nucleated RBCs # /100WBC Sodium (136-145) mmol/L Potassium (3.5-5.1) mmol/L Chloride (98-107) mmol/L Carbon Dioxide (22-29) mmol/L Anion Gap (5-19) BUN (6-20) mg/dL Creatinine (0.5-0.9) mg/dL GFR Calculation (90-130) mL/min Glucose (65-115) mg/dL Calcium (8.5-10.5) mg/dL Magnesium (1.7-2.3) mg/dL Total Bilirubin (0.15-1.2) mg/dL AST (0-32) U/L ALT (0-33) U/L Alkaline Phosphata se (35-105) IU/L Total Protein (6.6-8.7) g/dL Albumin (3.5-5.2) g/dL Globulin (1.3-4.6) g/dL TSH (0.27-4.20) uIU/ mL HCG, Qual (Negative) Urine Color Najma (Yellow) Urine Appearance Hazy A (CLEAR) Urine pH 6 (5-7) Ur Specific Gravit y 1.020 (1.005-1.030) Urine Protein Trace (Negative) Urine Glucose (UA) Norm (Normal) Urine Ketones Negative (Negative) Urine Occult Blood 3+ H (Negative) Urine Nitrate Negative (Negative) Urine Bilirubin Neg (NEGATIVE) Urine Urobilinogen 4 H (Negative) mg/dL Ur Leukocyte Yoanna ase Negative (Negative) Urine RBC Too numerous to c nt H (0-2) /hpf Urine WBC 0-4 H (0-5) /hpf Ur Squamous Epith Cells 5-10 H (0-5) Urine Bacteria 1+ H (NONE) Urine Mucus 1+ Urine Opiates Scre en Negative (Negative) ng/mL Ur Barbiturates Sc reen Negative (Negative) ng/mL Ur Phencyclidine S crn Negative (Negative) ng/mL Ur Amphetamines Sc reen Negative (Negative) ng/mL U Benzodiazepines Scrn Negative (Negative) ng/mL Urine Cocaine Scre en Negative (Negative) ng/mL U Marijuana (THC) Screen Negative (Negative) ng/mL EKG Data^: EKG 1: Attestation: I personally reviewed and interpreted this EKG as follows: EKG interpretation date: 10/27/19 EKG interpretation time: 09:19 Interpretation: Sinus tachycardia rate [address] elevation/depression normal axis Computer generated interpretation: Chest X-Ray 10/27/19 09:15 IMPRESSION: No acute cardiopulmonary findings Discharge Plan Discharge Patient Disposition: Home, Self-Care Clinical Impression: Tachycardia, Jaw pain Condition: Stable Prescriptions: No Action paroxetine HCl 40 mg tablet 40 mg PO DAILY RF: 0 sulfamethoxazole-trimethoprim [Bactrim DS] 800-160 mg tablet 1 tab PO BID RF: 0 aspirin 325 mg Tablet 325 mg PO DAILY RF: 0 Referrals: Emory Fuentes MD [Primary Care Provider] - Discharge Diet: Usual diet Discharge Activity: Resume usual activity Activity Restrictions/Additional Instructions: Patient to make follow up appointment with her PCP Coding Level of Care Code ED Heating And Ventilating Drafter for Chg Fwd The documentation recorded by the Kvng short Kialy, accurately reflects the service I personally performed and the decisions made by Scotty dill Connie, DO
[2019-10-27 09:14] VITALS: BP 123/89; PULSE 117; RESP 14; O2SAT 97
--- NOTE | 2019-10-27 09:15 | XR_ITS ---
WS: [id number] ONE VIEW CHEST HISTORY: 29 years old Female with tachycardia AP upright chest comparison October 25, 2019 FINDINGS: No pneumothorax, pleural effusion, consolidation/atelectasis. Cardiomediastinal silhouette and pulmon saqib vascular markings are unremarkable. No subdiaphragmatic free air. No fracture seen. XR/XR chest 1V portable [id number] IMPRESSION: No acute cardiopulmonary findings
[2019-10-27 09:42] VITALS: BP 117/87
[2019-10-27] MEDS: sodium chloride 0.9% 1,000 ML 999 ML IV (09:43)
[2019-10-27 09:46] LABS: Basophils % 0.5 %; Eosinophils # 0.2 10^3/uL (0.0-0.8); Eosinophils % 2.3 %; Hematocrit 40.6 % (37.0-47.0); Hemoglobin 13.7 g/dL (11.5-15.3); Lymphocytes # 2.5 10^3/uL (0.8-4.8); Lymphocytes % 29.6 %; Mean Corpuscular HGB Conc 33.7 g/dL (30.0-36.0); Mean Corpuscular Hemoglobin 32.2 pg (28.0-34.0); Mean Corpuscular Volume 95.5 fL (81-99); Mean Platelet Volume 9.4 fL (7.4-10.4); Monocytes # 0.6 10^3/uL (0.2-0.9); Monocytes % 7.5 %; Neutrophils % 59.7 %; Nucleated Red Blood Cells % 0 %; Platelet Count 388 10^3/cmm (130-400); Red Blood Count 4.25 10^6/uL (4.1-5.3); Red Cell Distribution Width 12.4 % (12.1-15.1); White Blood Count 8.3 10^3/uL (4.0-10.0)
[2019-10-27 09:50] LABS: Alanine Aminotransferase 19 U/L (0-33); Albumin Level 5.1 g/dL (3.5-5.2); Alkaline Phosphatase 116 IU/L (35-105); Anion Gap 18.9 (5-19); Aspartate Amino Transferase 21 U/L (0-32); Blood Urea Nitrogen 15 mg/dL (6-20); Calcium 9.9 mg/dL (8.5-10.5); Carbon Dioxide 23 mmol/L (22-29); Chloride 101 mmol/L (98-107); Globulin 3.3 g/dL (1.3-4.6); Glomerular Filtration Rate 85.4 mL/min (90-130); Glucose 124 mg/dL (65-115); Magnesium 2.3 mg/dL (1.7-2.3); Potassium 3.9 mmol/L (3.5-5.1); Sodium 139 mmol/L (136-145); Thyroid Stimulating Hormone 1.92 uIU/mL (0.27-4.20); Total Bilirubin 0.3 mg/dL (0.15-1.2); Total Protein 8.4 g/dL (6.6-8.7)
[2019-10-27 10:12] LABS: HCG Qualitative Urine. Negative (Negative)
[2019-10-27] MEDS: acetaminophen 500 mg Tablet 1000 MG PO (10:13)
[2019-10-27 10:14] LABS: Add Urine Microscopic? YES; Bilirubin Urine Neg (NEGATIVE); Blood Urine 3+ (Negative); Glucose Urine UA Norm (Normal); Ketones Urine Negative (Negative); Leukocyte Esterase Urine Negative (Negative); Nitrate Urine Negative (Negative); Protein Urine Trace (Negative); Urine Appearance Hazy (CLEAR); Urine Color Amber (Yellow); Urobilinogen Urine 4 mg/dL (Negative); pH Urine 6 (5-7)
[2019-10-27 10:15] LABS: RBC Urine TOO NUMEROUS TO CNT /hpf (0-2)
[2019-10-27 10:16] LABS: Bacteria Urine 1+; Mucus Urine 1+; WBC Urine 0-4 /hpf (0-5)
[2019-10-27 10:17] LABS: Add Urine Culture? Yes
[2019-10-27 10:23] LABS: Amphetamines Screen Urine Negative (Negative); Barbiturates Screen Urine Negative (Negative); Benzodiazepines Screen Urine Negative (Negative); Cocaine Screen Urine Negative (Negative); Opiate Screen Urine Negative (Negative); PCP Screen Urine Negative (Negative); THC Screen Urine Negative (Negative)
[2019-10-27 10:50] VITALS: RESP 16; O2SAT 100
[2019-10-27 11:18] VITALS: BP 116/84; PULSE 87; RESP 16; O2SAT 98
== END 2019-10-27 11:19 | disposition home or self-care (01) ==
PROVIDERS: Emergency Provider Emergency Medicine Emergency Medical Services; Family Provider Family Medicine; PCP Family Medicine
DX: R00.0 Tachycardia, unspecified (principal); R68.84 Jaw pain; Z79.82 Long term (current) use of aspirin
CPT/HCPCS: 36415; 71045; 80053; 80307; 81001; 81025; 83735; 84443; 85025; 87086; 96360; 96361; 99283; J7030

== ENCOUNTER 2019-10-27 23:08 | Emergency (ER) | payer MEDICAID, SELFPAY ==
[2019-10-27 23:14] VITALS: BP 153/101; PULSE 116; RESP 16; TEMP 36.9; O2SAT 95; BMI 26.4
--- NOTE | 2019-10-27 23:27 | ECG_ITS ---
Measurements Intervals [place] Rate: 105 P: 37 TN: 135 QRS: 11 QRSD: 96 T: 36 QT: 328 QTc: 434 SINUS TACHYCARDIA ABNORMAL RHYTHM ECG Compared to ECG 10/25/2019 13:02:38 Incomplete right bundle-branch block no longer present T-wave abnormality no longer present Electronically Signed On 10-28-2019 20:07:52 FORECAST ANALYST by Anders Hardy M.D. [id number]
--- NOTE | 2019-10-27 23:30 | W.ED.CHESTPA ---
HPI - Chest Pain General: Chief Complaint: Chest Pain Stated Complaint: TACHYCARDIA Time Seen by Provider: 10/27/19 23:11 History of Present Illness: HPI narrative: Patient is a 29-year-old female who returns to emergency room with complaining of fast heart rate. She states she was here this morning for similar episode this morning. EMS reports she was sinus tach in the 120s, blood sugar was 98. Patient states she began having discomfort in her chest described as a burning sensation and pressure in her back along with shortness of breath. She states this feeling was intermittent lasting for a few minutes only after eating roast beef. She states it is worse when she laid down. No discomfort now. She states she started having leg shaking. She states she is having a lot of stress with her grandmother. Patient is been seen in this emergency department multiple times over last few days. Patient states history of anxiety. She took her sleeping aid but does not know what it was, along with 325 mg aspirin and her Paroxetine 40 mg. She has been treated for staph to the cheek with Bactrim. She denies any stress test or echocardiogram done. Status post 2 C-sections. allergic to morphine. Denies any complaints in the emergency department is texting. MD complaint: other Timing of current episode: episodic Onset: after eating Pain location: other Pain radiation: none Severity: mild Quality: burning Relieving factors: nothing Exacerbating factors: stress Associated symptoms: Reports dyspnea and other (Bilateral leg shaking, anxiety); Deny abdominal pain or fever(s) Review of Systems Const: Denies: fever Eyes: Denies: change in vision ENMT: Denies: dry mouth Card: Denies: edema Resp: Reports: shortness of breath GI: Denies: abdominal pain : Denies: flank pain, difficulty urinating or painful urination Musc: Denies: extremity swelling or redness Skin/Breast: Denies: rash or skin swelling Neuro: Denies: headache or weakness in extremities Psych: Reports: anxiety Endo: Denies: excessive urination Sang/Lymph: Denies: purpura All/Imm: Denies: hives PFSH ED PFSH: Statuses (acute, chronic, etc) shown below reflect problem list status as previously entered and may not be historically accurate Social History Smoking and tobacco status: never smoked Female Reproductive History: Date of last menstrual period: 10/27/19 Physical Exam Const: COMMON NORMALS: no apparent distress, oriented x3 and alert ORIENTATION/CONSCIOUSNESS: Yes oriented to person and Yes oriented to place HENMT: COMMON NORMALS: normocephalic HEAD & SCALP: normal to inspection and normocephalic Eye: COMMON NORMALS: PERRL, EOMs intact bilaterally and conjunctivae normal GENERAL EYE: normal appearance of both eyes CONJUNCTIVA: Yes conjunctivae normal PUPIL: Yes PERRL Neck/C-Spine: COMMON NORMALS: full ROM, no lymphadenopathy, supple, no meningeal signs and no JVD GENERAL: Yes normal visual inspection and Yes trachea midline Lymph: LYMPHATIC: no lymphadenopathy noted Chest: COMMONS NORMALS: inspection of chest normal Resp: COMMON NORMALS: normal respiratory effort, no retractions and clear to auscultation bilaterally EFFORT & INSPECTION: Yes able to speak in complete sentences AUSCULTATION: clear to auscultation bilaterally Cardio: COMMON NORMALS: no JVD, regular rate and regular rhythm RATE: regular rate and tachycardic RHYTHM: regular rhythm GI: INSPECTION: Yes normal to inspection AUSCULTATION: Yes normoactive bowel sounds : COMMON NORMALS: Yes no CVA tenderness BLADDER/KIDNEY EXAM: Yes no CVA tenderness Back/Pelvis: COMMON NORMALS: no CVA tenderness THORACIC SPINE/UPPER BACK: Yes normal to inspection LUMBAR SPINE/LOWER BACK: Yes normal to inspection Extremity: COMMON NORMALS: normal to inspection, full ROM and normal capillary refill GENERAL: Yes normal exam except as noted Neuro: COMMON NORMALS: oriented x3, CN's II-XII intact bilaterally, moves all extremities, no focal motor deficits and no sensory deficits noted SENSORIUM/ORIENTATION: Yes alert, Yes oriented to person and Yes oriented to place MENINGEAL SIGNS: Yes no meningeal signs SPEECH: speech normal GAIT: Yes normal gait Psych: COMMON NORMALS: mental status grossly normal, thought process normal, cooperative, affect normal and speech normal APPEARANCE: Yes grossly normal SPEECH: Yes normal speech THOUGHT PROCESS: normal thought process Skin: COMMON NORMALS: no rashes or lesions noted, no wounds and skin turgor normal GENERAL SKIN EXAM: no rashes or lesions noted, elasticity normal and turgor normal Course ED course: Patient has been seen in emergency department on 10/24/2019, 10/25/2019, 10/27/2019 this a.m. She has had multiple labs including d-dimer. All studies have been negative for any cardiac etiology. No infectious per process noted. Do not see indication for additional laboratory imaging studies. EKG currently shows sinus tach 105. Patient is texting in the emergency department and is in no distress whatsoever. 20-minute conversation discussed regarding her multiple ER visits and likely stress reaction. Do not see indication for additional lab. Patient instructed to follow-up with primary care provider and counseling services. Will provide Ativan in the emergency department. Stable for discharge after medical screening exam. Vital Signs: Vital signs: Vital Signs Temperature 98.5 F 10/27/19 23:14 Pulse Rate 116 H 10/27/19 23:14 Respiratory Rate 16 10/27/19 23:14 Blood Pressure 153/101 10/27/19 23:14 Pulse Oximetry 95 10/27/19 23:14 MDM - Chest Pain MDM Narrative: Medical decision making narrative: Patient has been seen in this emergency department multiple times over the last few days with negative cardiac and negative d-dimer studies. No infectious or electrolyte ab maladies have been detected. Patient with history of anxiety. Discussed need to follow-up with primary care provider and counseling services for her stress reaction and management. Ativan given in emergency department. Will discharge home with Ativan. Patient agrees to treatment plan. Discharge Plan Discharge Patient Disposition: Home, Self-Care Condition: Stable Prescriptions: New lorazepam [Ativan] 1 mg tablet 1 mg PO BID PRN (Reason: anxiety) Qty: 7 RF: 0 No Action paroxetine HCl 40 mg tablet 40 mg PO DAILY RF: 0 sulfamethoxazole-trimethoprim [Bactrim DS] 800-160 mg tablet 1 tab PO BID RF: 0 aspirin 325 mg Tablet 325 mg PO DAILY RF: 0 Discharge Orders: Discharge Order (Routine); Ordered 10/27/19 Ordered By: Agustín Beltre Referrals: Emory Fuentes MD [Primary Care Provider] - 10/29/19 (Counseling service) Discharge Diet: Soft Mechanical Discharge Activity: Resume usual activity Patient Instructions: Stress (ED) Activity Restrictions/Additional Instructions: Take your medication as directed. Follow-up with your primary care provider and counseling services for ongoing evaluation of your stress reactions. Coding Level of Care Code ED Senior Training Specialist for Serina Chandler
[2019-10-27] MEDS: LORazepam 1 mg Tablet 2 MG PO (23:52)
[2019-10-28 00:35] VITALS: BP 134/71; PULSE 84; RESP 16; TEMP 36.7; O2SAT 99
== END 2019-10-28 00:35 | disposition home or self-care (01) ==
PROVIDERS: Emergency Provider Nurse Practitioner; Family Provider Family Medicine; PCP Family Medicine
DX: R07.9 Chest pain, unspecified (principal); Z79.82 Long term (current) use of aspirin
CPT/HCPCS: 93005; 99281; 99283

== ENCOUNTER 2019-10-29 01:13 | Emergency (ER) | payer MEDICAID, SELFPAY ==
[2019-10-29 01:13] VITALS: BP 124/84; PULSE 115; RESP 14; TEMP 36.6; O2SAT 98; BMI 33.2
--- NOTE | 2019-10-29 02:11 | ED_ITS ---
HPI - General Adult General: Chief complaint: General Medical Stated complaint: Back Pain, Generalized Weakness Time Seen by Provider: 10/29/19 02:01 History of Present Illness: HPI narrative: Patient is a 29-year-old female comes to the ED with lower back pain. Patient states lower back pain started a couple hours ago tonight. She says the pain comes and goes and while in the ED the pain is mild. She denies any trauma or injury that would cause the lower back pain. Denies any numbness or tingling, legs or any plan or bowel incontinence. Denies fever, chills, chest pain, shortness of breath, abdominal pain, nausea, vomiting, bladder or bowel symptoms. Review of Systems General: Reports: 10 or more systems reviewed and unremarkable except in HPI and below PFSH ED PFSH: Statuses (acute, chronic, etc) shown below reflect problem list status as previously entered and may not be historically accurate Social History Smoking and tobacco status: former smoker Female Reproductive History: Date of last menstrual period: 10/29/19 Physical Exam Narrative: EXAM NARRATIVE: Patient is a 29-year-old female who is sitting comfortably on the exam table in the room. She is showing no signs of acute pain or distress. She is also showing no signs of respiratory distress. Const: COMMON NORMALS: oriented x3 HENMT: COMMON NORMALS: normocephalic HEAD & SCALP: normocephalic MOUTH: oral and palatal mucosa normal THROAT: posterior oropharynx normal and uvula midline Neck/C-Spine: COMMON NORMALS: supple GENERAL: Yes normal visual inspection Resp: COMMON NORMALS: normal respiratory effort, no retractions, no use of accessory muscles and clear to auscultation bilaterally AUSCULTATION: clear to auscultation bilaterally Cardio: COMMON NORMALS: regular rate, regular rhythm, S1 normal heart sound, S2 normal heart sound, no gallops, no clicks, no murmurs and peripheral pulses 2+ throughout RATE: regular rate RHYTHM: regular rhythm HEART SOUNDS: S1 normal and S2 normal PERIPHERAL PULSES: pulses 2+ throughout GI: COMMON NORMALS: normal to inspection, nondistended, normoactive bowel sounds, soft to palpation, non-tender and no masses PALPATION: Yes soft : COMMON NORMALS: Yes no CVA tenderness BLADDER/KIDNEY EXAM: Yes no CVA tenderness Back/Pelvis: COMMON NORMALS: no CVA tenderness and no thoracic nor lumbar tenderness Extremity: COMMON NORMALS: normal to inspection Neuro: COMMON NORMALS: oriented x3 and moves all extremities Skin: COMMON NORMALS: no rashes or lesions noted GENERAL SKIN EXAM: no rashes or lesions noted Course Vital Signs: Vital signs: Vital Signs Temperature 98.4 F 10/29/19 03:00 Pulse Rate 113 H 10/29/19 03:00 Respiratory Rate 14 10/29/19 01:13 Blood Pressure 124/84 10/29/19 01:13 Pulse Oximetry 96 10/29/19 03:00 Discharge Plan Discharge Patient Disposition: Home, Self-Care Clinical Impression: Back pain Qualifiers: Back pain location: low back pain Chronicity: acute Back pain laterality: bilateral Sciatica presence: without sciatica Qualified Code(s): M54.5 - Low back pain Condition: Stable Prescriptions: No Action paroxetine HCl 40 mg tablet 40 mg PO DAILY RF: 0 sulfamethoxazole-trimethoprim [Bactrim DS] 800-160 mg tablet 1 tab PO BID RF: 0 aspirin 325 mg Tablet 325 mg PO DAILY RF: 0 Ativan 1 mg tablet 1 mg PO BID PRN (Reason: anxiety) Qty: 7 RF: 0 Discharge Orders: Discharge Order (Routine); Ordered 10/29/19 Ordered By: Eliezer Cooper Referrals: Emory Fuentes MD [Primary Care Provider] - Discharge Diet: Regular Discharge Activity: Increase activity as tolerated Patient Instructions: Back Pain (ED) Activity Restrictions/Additional Instructions: Follow-up with your PCP in 7 days for reevaluation. Apply ice and/or heat on back to help with symptoms. Stretch daily and take [id number] ibuprofen or Aleve for pain and inflammation. Discharge Date/Time: 10/29/19 03:00 Coding Level of Care Code ED Day Treatment Clinician/Art Therapist for Serina Chandler
[2019-10-29] MEDS: ketorolac 30 mg/mL INJ IM (02:37)
[2019-10-29 03:00] VITALS: PULSE 113; TEMP 36.9; O2SAT 96
== END 2019-10-29 03:00 | disposition home or self-care (01) ==
PROVIDERS: Emergency Provider Physician Assistant; Family Provider Family Medicine; PCP Family Medicine
DX: M54.5 Low back pain (principal); Z79.82 Long term (current) use of aspirin; Z87.891 Personal history of nicotine dependence
CPT/HCPCS: 96372; 99281; 99283; J1885

== ENCOUNTER 2019-10-30 08:46 | Emergency (ER) | payer MEDICAID, SELFPAY ==
[2019-10-30 08:49] VITALS: BP 151/100; PULSE 105; RESP 16; TEMP 36.9; O2SAT 100; BMI 27.9
[2019-10-30 09:01] VITALS: O2SAT 99
--- NOTE | 2019-10-30 09:12 | ED.PEDHENT ---
HPI - Pediatric HENT General: Chief complaint: Ear Stated complaint: Ear pain Time Seen by Provider: 10/30/19 08:50 Source: patient and family Mode of arrival: ambulatory Limitations: no limitations History of Present Illness: HPI Narrative: Patient is a 29-year-old female here for complaints of bilateral jaw pain and ear pain. Patient has been seen at our facility for that previously. She has been seen in our emergency department several times over the past few weeks for various complaints. Patient denies facial swelling, neck swelling/pain, ear drainage, fevers, hearing loss or tinnitus. MD complaint: ear pain Onset (ago): day(s) Fever: No Pain location: right ear Pain Consistency: constant Associated symtoms: Reports no associated symptoms Treatments prior to arrival: none Related Data: Immunizations UTD: Yes Pediatric ROS Review of Systems: CONSTITUTIONAL: other (denies fevers/chills ) EYES: no change in vision, no discharge, no itching and no swelling EARS, NOSE, MOUTH, THROAT: ear pain and dental problems (wisdom teeth ); no headaches, no vertigo, no lightheadedness, no head injury, no ear discharge, no tinnitus, no nasal congestion and no sore throat CARDIOVASCULAR: no chest pain, no palpitations and no syncope RESPIRATORY: no pain with respirations, no shortness of breath, no exercise intolerance and no hemoptysis GASTROINTESTINAL: no change in appetite, no nausea and no vomiting INTEGUMENTARY: no rash PFSH ED PFSH: Statuses (acute, chronic, etc) shown below reflect problem list status as previously entered and may not be historically accurate Social History Smoking and tobacco status: never smoked Female Reproductive History: Date of last menstrual period: 10/29/19 Pediatric Exam Const: Constitutional General: cooperative, comfortable, no acute distress, well developed, alert, awake and active Nutritional Appearance: well nourished HENMT: Head: normal to inspection, normocephalic and atraumatic Ears: hearing grossly normal bilaterally, external ears normal, TM's normal bilaterally, EAC's normal, mastoids normal, no periauricular adenopathy, TM normal on the right and TM normal on the left Nose: external nose normal Face and Sinuses: normal facial exam Mouth: oral mucosae normal, lip normal, tongue normal, salivary ducts normal, oropharynx normal, moist mucous membranes and palate normal Mandible: normal position and size Throat: posterior oropharynx normal Other: pt has dental caries and impacted noted to bilateral lower wisdom teeth; there is no evidence for acute infection at this time Neck: Neck: full ROM, no lymphadenopathy, no meningeal signs and supple Chest: Chest: normal inspection of the chest Resp: Effort & Inspection: normal respiratory effort Auscultation: clear to auscultation bilaterally Cardio: Rate: regular rate Rhythm: regular rhythm GI: Palpation: soft and no hepatosplenomegaly : Bladder and Renal Exam: no CVA tenderness Spine/Pelvis: Thoracic/Lumbar Spine: thoracic and lumbar spine normal to inspection Skin: General: no rashes or lesions noted Neuro: General: Yes No meningeal signs Extrem: General: normal to inspection Course Vital Signs: Vital signs: Vital Signs Temperature 98.4 F 10/30/19 08:49 Pulse Rate 100 10/30/19 09:45 Respiratory Rate 20 H 10/30/19 09:45 Blood Pressure 134/81 10/30/19 09:45 Pulse Oximetry 99 10/30/19 09:45 Medical Decision Making [facility] Narrative: Medical decision making narrative: Patient's jaw pain and ear pain is most likely related to her impacted bilateral lower wisdom teeth. Family in the room with patient states they are trying to get her set up with a dentist to get these removed. There is no active infection and no need for oral antibiotics at this time. Of note patient does have a follow-up with cardiology on Monday for her tachycardia-she has been seen in our emergency department several times for this complaint as well as her PCP office. Discharge Plan Discharge Patient Disposition: Home, Self-Care Clinical Impression: Dental caries, Tooth impaction Condition: Stable Prescriptions: No Action paroxetine HCl 40 mg tablet 40 mg PO DAILY RF: 0 sulfamethoxazole-trimethoprim [Bactrim DS] 800-160 mg tablet 1 tab PO BID RF: 0 aspirin 325 mg Tablet 325 mg PO DAILY RF: 0 Ativan 1 mg tablet 1 mg PO BID PRN (Reason: anxiety) Qty: 7 RF: 0 Discharge Orders: Discharge Order (Routine); Ordered 10/30/19 Ordered By: Ana Alanis Referrals: Emory Fuentes MD [Primary Care Provider] - Discharge Diet: Usual diet Discharge Activity: Resume usual activity Activity Restrictions/Additional Instructions: As discussed you need to follow-up with a dentist in regards to your wisdom teeth. Please keep your cardiology appointment with Dr. Gaines on Monday. Discharge Date/Time: 10/30/19 09:46 Coding Level of Care Code ED Career Discovery Teacher for Serina Chandler
[2019-10-30 09:45] VITALS: BP 134/81; PULSE 100; RESP 20; O2SAT 99
== END 2019-10-30 09:46 | disposition home or self-care (01) ==
PROVIDERS: Emergency Provider Physician Assistant; Family Provider Family Medicine; PCP Family Medicine
DX: K02.9 Dental caries, unspecified (principal); K01.1 Impacted teeth
CPT/HCPCS: 99282

== ENCOUNTER 2019-11-06 14:58 | Emergency (ER) | payer MEDICAID, SELFPAY ==
[2019-11-06 15:00] VITALS: BP 111/75; PULSE 100; RESP 16; TEMP 36.9; O2SAT 100; BMI 28.3
--- NOTE | 2019-11-06 15:21 | ED_ITS ---
Entered by Erica Quevedo, acting as scribe for Wes Corley MD, [facility] HPI - Chest Pain General: Chief Complaint: Chest Pain Stated Complaint: Chest pain not feeling well Time Seen by Provider: 11/06/19 15:20 Source: patient Mode of arrival: ambulatory Limitations: no limitations History of Present Illness: HPI narrative: 29 yo Female presents to ED with complaint of chest pain. Pt states that she went to the walk in yesterday because she wasn't feeling well and needed something to help her sleep because she didn't sleep the night before. Pt states that she was given trazadone. Pt states that she has been pretty sleepy. Pt states that she had been on other medication recently and then off of it. Pt states that she is taking it again now and she was worried that there might be an interaction. Pt states that she has a headache so she chewed an aspirin and then she threw up. Pt states that she had chest pain but when she chewed the aspirin, it got better. complaint: chest pain and other Onset (ago): day(s) Timing of current episode: episodic and now resolved Prior episodes: Yes Onset: during rest Pain radiation: back and neck Severity: mild Relieving factors: medication-other (aspirin) Exacerbating factors: nothing Associated symptoms: Reports nausea and vomiting; Deny abdominal pain, dyspnea, fever(s) or palpitations Treatment prior to arrival: none Review of Systems General: Reports: 10 or more systems reviewed and unremarkable except in HPI and below Const: Denies: fever Eyes: Denies: change in vision or blurry vision ENMT: Denies: throat pain, enlarged tonsils, painful swallowing, hoarseness, mouth pain or swelling of lips/tongue Card: Reports: chest pain; Denies: palpitations, irregular heart rhythm, edema or swelling of feet/ankles Resp: Denies: shortness of breath, productive cough or non-productive cough GI: Reports: nausea and vomiting; Denies: abdominal pain : Denies: flank pain, difficulty urinating, painful urination, urinary frequency, urinary urgency or urinary hesitancy Musc: Denies: neck pain, back pain or extremity swelling Skin/Breast: Denies: rash, itching or redness Neuro: Denies: headache, numbness in extremities or weakness in extremities Endo: Denies: excessive urination, excessive thirst or tired all the time PFSH ED PFSH: Social History Smoking and tobacco status: never smoked Female Reproductive History: Date of last menstrual period: 10/30/19 Physical Exam Const: COMMON NORMALS: no apparent distress, average body habitus, oriented x3, no limitations, healthy appearing, alert and well nourished HENMT: COMMON NORMALS: normocephalic, head/scalp atraumatic and moist oral mucous membranes HEAD & SCALP: normocephalic and atraumatic Eye: COMMON NORMALS: PERRL, EOMs intact bilaterally, conjunctivae normal and no scleral icterus CONJUNCTIVA: Yes conjunctivae normal PUPIL: Yes PERRL Neck/C-Spine: COMMON NORMALS: full ROM, supple, no meningeal signs, no JVD and no carotid bruits Chest: COMMONS NORMALS: inspection of chest normal and palpation of chest normal Resp: COMMON NORMALS: normal respiratory effort, no retractions, no use of ac cessory muscles, clear to auscultation bilaterally and percussion normal AUSCULTATION: clear to auscultation bilaterally PERCUSSION: percussion normal Cardio: COMMON NORMALS: no JVD, regular rate, regular rhythm, S1 normal heart sound, S2 normal heart sound, no gallops, no clicks, no murmurs, no rub and peripheral pulses 2+ throughout RATE: regular rate RHYTHM: regular rhythm HEART SOUNDS: S1 normal and S2 normal PERIPHERAL PULSES: pulses 2+ throughout GI: COMMON NORMALS: normal to inspection, nondistended, normoactive bowel sounds, soft to palpation, non-tender, no hepatosplenomegaly, no masses and no bruits PALPATION: Yes soft and Yes no hepatosplenomegaly : COMMON NORMALS: Yes no CVA tenderness BLADDER/KIDNEY EXAM: Yes no CVA tenderness Back/Pelvis: COMMON NORMALS: no CVA tenderness Extremity: COMMON NORMALS: normal to inspection, full ROM, normal capillary refill, no calf tenderness and no pedal edema Neuro: COMMON NORMALS: oriented x3 SENSORIUM/ORIENTATION: Yes alert MENINGEAL SIGNS: Yes no meningeal signs Skin: COMMON NORMALS: no rashes or lesions noted, no wounds, skin turgor normal, no jaundice, no petechiae and no mottling GENERAL SKIN EXAM: no rashes or lesions noted and turgor normal Course Vital Signs: Vital signs: Vital Signs Temperature 98.5 F 11/06/19 15:00 Pulse Rate 98 11/06/19 18:22 Respiratory Rate 14 11/06/19 18:22 Blood Pressure 100/63 11/06/19 18:22 Pulse Oximetry 95 11/06/19 18:22 MDM - Chest Pain MDM Narrative: Medical decision making narrative: Patient who presents to the emergency department with chest pain and multiple complaints. The patient is a frequent visitor to this emergency department for different types of complaints. This is her seventh visit to the emergency department this month. Evaluation is unremarkable. She is therefore discharged home with no new orders. Medical Records: Attestation: I reviewed the patient's medical records. Lab Data: Attestation: I reviewed the patient's lab results. Labs: Lab Results 11/06/19 11/06/19 11/06/19 Range/Units 14:45 14:45 14:45 WBC 6.3 (4.0-10.0) 10^3/ uL RBC 3.71 L (4.1-5.3) 10^6/u L Hgb 11.7 (11.5-15.3) g/dL Hct 34.9 L (37.0-47.0) % MCV 94.1 (81-99) fL MCH 31.5 (28.0-34.0) pg MCHC 33.5 (30.0-36.0) g/dL RDW 12.1 (12.1-15.1) % Plt Count 347 (130-400) 10^3/c mm MPV 9.3 (7.4-10.4) fL Neut % (Auto) 48.2 % Lymph % (Auto) 40.6 % [place] % (Auto) 7.3 % Eos % (Auto) 2.7 % Baso % (Auto) 1.0 % Neut # (Auto) 3.0 (1.8-7.7) 10^3/u L Lymph # (Auto) 2.6 (0.8-4.8) 10^3/u L [place] # (Auto) 0.5 (0.2-0.9) 10^3/u L Eos # (Auto) 0.2 (0.0-0.8) 10^3/u L Baso # (Auto) 0.1 (0.0-0.1) 10^3/u L Nucleated RBC % (a uto) 0 % Nucleated RBCs # 0.0 /100WBC Sodium 137 (136-145) mmol/L Potassium 3.8 (3.5-5.1) mmol/L Chloride 100 (98-107) mmol/L Carbon Dioxide 24 (22-29) mmol/L Anion Gap 16.8 (5-19) BUN 20 (6-20) mg/dL Creatinine 0.8 (0.5-0.9) mg/dL GFR Calculation 85.4 L (90-130) mL/min Glucose 111 (65-115) mg/dL Calcium 9.2 (8.5-10.5) mg/dL Total Bilirubin 0.2 (0.15-1.2) mg/dL AST 22 (0-32) U/L ALT 20 (0-33) U/L Alkaline Phosphata se 83 (35-105) IU/L Creatine Kinase 92 (26-192) U/L Troponin T Baselin e 6 (0-10) ng/mL Troponin T 120 Min council (0-10) ng/mL Delta Troponin T (0-10) ABS# Total Protein 7.4 (6.6-8.7) g/dL Albumin 4.5 (3.5-5.2) g/dL Globulin 2.9 (1.3-4.6) g/dL Lipase 41 (13-60) U/L HCG, Qual (Negative) Urine Color (Yellow) Urine Appearance (CLEAR) Urine pH (5-7) Ur Specific Gravit y (1.005-1.030) Urine Protein (Negative) Urine Glucose (UA) (Normal) Urine Ketones (Negative) Urine Blood (Negative) Urine Nitrate (Negative) Urine Bilirubin (NEGATIVE) Urine Urobilinogen (Negative) mg/dL Ur Leukocyte Yoanna ase (Negative) Urine RBC (0-2) /hpf Urine WBC (0-5) /hpf Ur Squamous Epith Cells (0-5) Amorphous Sediment Urine Bacteria (NONE) Urine Opiates Scre en (Negative) ng/mL Ur Barbiturates Sc reen (Negative) ng/mL Ur Phencyclidine S crn (Negative) ng/mL Ur Amphetamines Sc reen (Negative) ng/mL U Benzodiazepines Scrn (Negative) ng/mL Urine Cocaine Scre en (Negative) ng/mL U Marijuana (THC) Screen (Negative) ng/mL 11/06/19 11/06/19 11/06/19 Range/Units 15:40 15:40 15:40 WBC (4.0-10.0) 10^3/ uL RBC (4.1-5.3) 10^6/u L Hgb (11.5-15.3) g/dL Hct (37.0-47.0) % MCV (81-99) fL MCH (28.0-34.0) pg MCHC (30.0-36.0) g/dL RDW (12.1-15.1) % Plt Count (130-400) 10^3/c mm MPV (7.4-10.4) fL Neut % (Auto) % Lymph % (Auto) % [place] % (Auto) % Eos % (Auto) % Baso % (Auto) % Neut # (Auto) (1.8-7.7) 10^3/u L Lymph # (Auto) (0.8-4.8) 10^3/u L [place] # (Auto) (0.2-0.9) 10^3/u L Eos # (Auto) (0.0-0.8) 10^3/u L Baso # (Auto) (0.0-0.1) 10^3/u L Nucleated RBC % (a uto) % Nucleated RBCs # /100WBC Sodium (136-145) mmol/L Potassium (3.5-5.1) mmol/L Chloride (98-107) mmol/L Carbon Dioxide (22-29) mmol/L Anion Gap (5-19) BUN (6-20) mg/dL Creatinine (0.5-0.9) mg/dL GFR Calculation (90-130) mL/min Glucose (65-115) mg/dL Calcium (8.5-10.5) mg/dL Total Bilirubin (0.15-1.2) mg/dL AST (0-32) U/L ALT (0-33) U/L Alkaline Phosphata se (35-105) IU/L Creatine Kinase (26-192) U/L Troponin T Baselin e (0-10) ng/mL Troponin T 120 Min council (0-10) ng/mL Delta Troponin T (0-10) ABS# Total Protein (6.6-8.7) g/dL Albumin (3.5-5.2) g/dL Globulin (1.3-4.6) g/dL Lipase (13-60) U/L HCG, Qual Negative (Negative) Urine Color Yellow (Yellow) Urine Appearance Sl hazy (CLEAR) Urine pH 7 (5-7) Ur Specific Gravit y 1.010 (1.005-1.030) Urine Protein Neg (Negative) Urine Glucose (UA) Norm (Normal) Urine Ketones Negative (Negative) Urine Blood Neg (Negative) Urine Nitrate Negative (Negative) Urine Bilirubin Neg (NEGATIVE) Urine Urobilinogen Norm (Negative) mg/dL Ur Leukocyte Yoanna ase Negative (Negative) Urine RBC None (0-2) /hpf Urine WBC None (0-5) /hpf Ur Squamous Epith Cells 0-4 H (0-5) Amorphous Sediment 1+ Urine Bacteria Trace (NONE) Urine Opiates Scre en Negative (Negative) ng/mL Ur Barbiturates Sc reen Negative (Negative) ng/mL Ur Phencyclidine S crn Negative (Negative) ng/mL Ur Amphetamines Sc reen Negative (Negative) ng/mL U Benzodiazepines Scrn Negative (Negative) ng/mL Urine Cocaine Scre en Negative (Negative) ng/mL U Marijuana (THC) Screen Negative (Negative) ng/mL 11/06/19 Range/Units 16:53 WBC (4.0-10.0) 10^3/ uL RBC (4.1-5.3) 10^6/u L Hgb (11.5-15.3) g/dL Hct (37.0-47.0) % MCV (81-99) fL MCH (28.0-34.0) pg MCHC (30.0-36.0) g/dL RDW (12.1-15.1) % Plt Count (130-400) 10^3/c mm MPV (7.4-10.4) fL Neut % (Auto) % Lymph % (Auto) % [place] % (Auto) % Eos % (Auto) % Baso % (Auto) % Neut # (Auto) (1.8-7.7) 10^3/u L Lymph # (Auto) (0.8-4.8) 10^3/u L [place] # (Auto) (0.2-0.9) 10^3/u L Eos # (Auto) (0.0-0.8) 10^3/u L Baso # (Auto) (0.0-0.1) 10^3/u L Nucleated RBC % (a uto) % Nucleated RBCs # /100WBC Sodium (136-145) mmol/L Potassium (3.5-5.1) mmol/L Chloride (98-107) mmol/L Carbon Dioxide (22-29) mmol/L Anion Gap (5-19) BUN (6-20) mg/dL Creatinine (0.5-0.9) mg/dL GFR Calculation (90-130) mL/min Glucose (65-115) mg/dL Calcium (8.5-10.5) mg/dL Total Bilirubin (0.15-1.2) mg/dL AST (0-32) U/L ALT (0-33) U/L Alkaline Phosphata se (35-105) IU/L Creatine Kinase (26-192) U/L Troponin T Baselin e (0-10) ng/mL Troponin T 120 Min council 6.00 (0-10) ng/mL Delta Troponin T 0 (0-10) ABS# Total Protein (6.6-8.7) g/dL Albumin (3.5-5.2) g/dL Globulin (1.3-4.6) g/dL Lipase (13-60) U/L HCG, Qual (Negative) Urine Color (Yellow) Urine Appearance (CLEAR) Urine pH (5-7) Ur Specific Gravit y (1.005-1.030) Urine Protein (Negative) Urine Glucose (UA) (Normal) Urine Ketones (Negative) Urine Blood (Negative) Urine Nitrate (Negative) Urine Bilirubin (NEGATIVE) Urine Urobilinogen (Negative) mg/dL Ur Leukocyte Yoanna ase (Negative) Urine RBC (0-2) /hpf Urine WBC (0-5) /hpf Ur Squamous Epith Cells (0-5) Amorphous Sediment Urine Bacteria (NONE) Urine Opiates Scre en (Negative) ng/mL Ur Barbiturates Sc reen (Negative) ng/mL Ur Phencyclidine S crn (Negative) ng/mL Ur Amphetamines Sc reen (Negative) ng/mL U Benzodiazepines Scrn (Negative) ng/mL Urine Cocaine Scre en (Negative) ng/mL U Marijuana (THC) Screen (Negative) ng/mL Imaging Data^: CXR: Radiologist's impression: [address] [place] [address] XRay Report Signed Patient: Kathi Torres #: [id number] : 1990Acct#:[id number] Age/Sex: 29 FADM Date: 11/06/19 Loc: ERRoom/Bed: Attending Dr: Ordering Provider/Ordering MD: Wes Corley MD, [facility] Date of Service: 11/06/19 Procedure(s): XR chest 2V* 62037 Accession Number(s): [id number] Report Number: [id number] WS: [id number] XR chest 2V* 92752 REASON FOR EXAM: chest pain FINDINGS: The heart and mediastinal interfaces are normal. The lung finn are well aerated. No pneumothorax, pneumonia, pleural effusion, or mass effect. A mild scoliotic curve convex to the left. The hilum and apices are normal. No osseous abnormalities. XR/XR chest 2V* 98075 IMPRESSION: Negative chest for acute pathology. Dictated By:Mike Mei DO Signed By:Mike Mei DOSigned Date/Time:11/06/191551 DD/ EKG Data^: EKG 1: Attestation: I personally reviewed and interpreted this EKG as follows: EKG interpretation date: 11/06/19 EKG interpretation time: 17:24 Prior EKG tracings: not available for review Interpretation: Normal sinus rhythm. Heart rate 85 bpm. Incomplete right bundle branch block. No ST changes. Discharge Plan Discharge Patient Disposition: Home, Self-Care Clinical Impression: Chest pain Qualifiers: Chest pain type: unspecified Qualified Code(s): R07.9 - Chest pain, unspecified Condition: Stable Prescriptions: Continued paroxetine HCl 40 mg tablet 40 mg PO DAILY RF: 0 amoxicillin 500 mg capsule 875 mg PO TID RF: 0 naproxen sodium 220 mg capsule 500 mg PO BID PRN (Reason: Pain) RF: 0 melatonin 10 mg capsule 10 mg PO DAILY RF: 0 diphenhydramine HCl [NightTime Sleep Aid (diphen)] 25 mg capsule 25 mg PO DAILY PRN (Reason: Sleep) RF: 0 aspirin 325 mg Tablet 325 mg PO DAILY RF: 0 Advil 1 tab PO PRN RF: 0 trazodone 50 mg Tablet 50 mg PO DAILY RF: 0 famotidine 20 mg Tablet 20 mg PO DAILY RF: 0 aripiprazole 5 mg Tablet 5 mg PO DAILY RF: 0 Discharge Orders: Discharge Order (Routine); Ordered 11/06/19 Ordered By: Wes Corley Referrals: Emory Fuentes MD [Primary Care Provider] - 1-3 days Patient Instructions: Chest Pain (ED) Activity Restrictions/Additional Instructions: return for any new or worsening symptoms. Follow up with your primary care provider within 3 days. Discharge Date/Time: 11/06/19 18:23 Coding Level of Care Code ED Pediatric Psychologist for Chg Fwd Exam Comprehensive The documentation recorded by the Sae short Carmen, accurately reflects the service I personally performed and the decisions made by Barney dill Adegoke I, MD, [facility] Nov 06, 2019 14:58
--- NOTE | 2019-11-06 15:31 | ECG_ITS ---
Measurements Intervals [place] Rate: 96 P: 136 GA: 164 QRS: 149 QRSD: 91 T: 163 QT: 363 QTc: 460 SINUS RHYTHM ARM LEADS REVERSED [INVERTED P AND QRS IN I] Compared to ECG 10/27/2019 23:24:25 Sinus tachycardia no longer present Electronically Signed On 11-06-2019 17:25:35 CHEF INSTRUCTOR by Nikki Zelaya M.D. [email or web address]
--- NOTE | 2019-11-06 15:33 | XR_ITS ---
WS: [id number] XR chest 2V* [id number] REASON FOR EXAM: chest pain FINDINGS: The heart and mediastinal interfaces are normal. The lung finn are well aerated. No pneumothorax, pneumonia, pleural effusion, or mass effect. A mild scoliotic curve convex to the left. The hilum and apices are normal. No osseous abnormalities. XR/XR chest 2V* 09015 IMPRESSION: Negative chest for acute pathology.
[2019-11-06 15:44] LABS: Basophils # 0.1 10^3/uL (0.0-0.1); Eosinophils # 0.2 10^3/uL (0.0-0.8); Eosinophils % 2.7 %; Hematocrit 34.9 % (37.0-47.0); Hemoglobin 11.7 g/dL (11.5-15.3); Lymphocytes # 2.6 10^3/uL (0.8-4.8); Lymphocytes % 40.6 %; Mean Corpuscular HGB Conc 33.5 g/dL (30.0-36.0); Mean Corpuscular Hemoglobin 31.5 pg (28.0-34.0); Mean Corpuscular Volume 94.1 fL (81-99); Mean Platelet Volume 9.3 fL (7.4-10.4); Monocytes # 0.5 10^3/uL (0.2-0.9); Monocytes % 7.3 %; Neutrophils % 48.2 %; Nucleated Red Blood Cells % 0 %; Platelet Count 347 10^3/cmm (130-400); Red Blood Count 3.71 10^6/uL (4.1-5.3); Red Cell Distribution Width 12.1 % (12.1-15.1); White Blood Count 6.3 10^3/uL (4.0-10.0)
[2019-11-06 15:55] LABS: Alanine Aminotransferase 20 U/L (0-33); Albumin Level 4.5 g/dL (3.5-5.2); Alkaline Phosphatase 83 IU/L (35-105); Anion Gap 16.8 (5-19); Aspartate Amino Transferase 22 U/L (0-32); Blood Urea Nitrogen 20 mg/dL (6-20); Calcium 9.2 mg/dL (8.5-10.5); Carbon Dioxide 24 mmol/L (22-29); Chloride 100 mmol/L (98-107); Creatine Phosphokinase 92 U/L (26-192); Globulin 2.9 g/dL (1.3-4.6); Glomerular Filtration Rate 85.4 mL/min (90-130); Glucose 111 mg/dL (65-115); Lipase 41 U/L (13-60); Potassium 3.8 mmol/L (3.5-5.1); Sodium 137 mmol/L (136-145); Total Bilirubin 0.2 mg/dL (0.15-1.2); Total Protein 7.4 g/dL (6.6-8.7); Troponin(5th) Baseline 6 ng/mL (0-10)
[2019-11-06 15:57] LABS: HCG Qualitative Urine. Negative (Negative)
[2019-11-06 16:02] LABS: Add Urine Microscopic? YES; Bacteria Urine TRACE; Bilirubin Urine Neg (NEGATIVE); Blood Urine Neg (Negative); Glucose Urine UA Norm (Normal); Ketones Urine Negative (Negative); Leukocyte Esterase Urine Negative (Negative); Nitrate Urine Negative (Negative); Protein Urine Neg (Negative); Squamous Epithelial Cell Urine 0-4 (0-5); Urine Appearance SL Hazy (CLEAR); Urine Color Yellow (Yellow); Urobilinogen Urine Norm (Negative); pH Urine 7 (5-7)
[2019-11-06 16:03] LABS: Add Urine Culture? No; Amorphous Sediment Urine 1+
[2019-11-06 16:19] LABS: Amphetamines Screen Urine Negative (Negative); Barbiturates Screen Urine Negative (Negative); Benzodiazepines Screen Urine Negative (Negative); Cocaine Screen Urine Negative (Negative); Opiate Screen Urine Negative (Negative); PCP Screen Urine Negative (Negative); THC Screen Urine Negative (Negative)
[2019-11-06 17:16] LABS: Troponin 5 2HR Delta 0 ABS# (0-10)
[2019-11-06] MEDS: ketorolac 30 mg/mL INJ IVP (17:31)
--- NOTE | 2019-11-06 17:31 | ECG_ITS ---
Measurements Intervals [place] Rate: 85 P: 29 FL: 164 QRS: 12 QRSD: 94 T: 16 QT: 379 QTc: 452 SINUS RHYTHM LOW QRS VOLTAGE IN PRECORDIAL LEADS [QRS DEFLECTION < 1.0 mV IN CHEST LEADS] INCOMPLETE RIGHT BUNDLE BRANCH BLOCK Compared to ECG 11/06/2019 15:12:07 Low QRS voltage now present Incomplete right bundle-branch block now present Electronically Signed On 11-06-2019 20:15:13 PRINTED CIRCUIT BOARD PREASSEMBLER by Nikki Zelaya M.D. [email or web address]
[2019-11-06 17:35] VITALS: BP 105/58; PULSE 80; RESP 14; O2SAT 98
[2019-11-06 18:22] VITALS: BP 100/63; PULSE 98; RESP 14; O2SAT 95
[2019-11-07 00:16] LABS: Influenza A by IFA Negative (Negative); Influenza B by IFA Negative (Negative)
== END 2019-11-06 18:23 | disposition home or self-care (01) ==
PROVIDERS: Emergency Provider Family Medicine; Family Provider Family Medicine; PCP Family Medicine
DX: R07.9 Chest pain, unspecified (principal)
CPT/HCPCS: 36415; 71046; 80053; 80307; 81001; 81025; 82550; 83690; 84484; 85025; 87804; 93005; 96374; 96375; 99283; 99284; A9270; J1885

== ENCOUNTER 2019-11-12 18:44 | Emergency (ER) | payer MEDICAID, SELFPAY ==
[2019-11-12] VITALS (7 sets, daily range): BP systolic 112–125; BP diastolic 78–92; PULSE 84–104; RESP 16–23; TEMP 36.8; O2SAT 99–100; BMI 28.3
--- NOTE | 2019-11-12 18:48 | ED_ITS ---
Entered by Balbina Saldaña, acting as scribe for Sarah Day HPI - Chest Pain General: Chief Complaint: Chest Pain Stated Complaint: CHEST PAIN, TACHYCARDIA Time Seen by Provider: 11/12/19 19:07 Source: patient and EMS Mode of arrival: EMS Limitations: no limitations History of Present Illness: HPI narrative: Kathi is a very nice 29-year-old female who comes in for palpitations and chest discomfort. She states she is been here several times for similar symptoms. She states she is currently undergoing a work-up by Dr. Zelaya but no definitive cause can be determined. Patient states her pain is sharp and is associated with an elevated rapid heartbeat. She states that her pulse is very rapid at home when she checks it and has these episodes. Today's episode occurred at rest and ended after a very short time just a few minutes at most. She denies any exacerbating or alleviating factors denies any syncope or near syncopal type symptoms. Says any shortness of breath, radiation of her pain, diaphoresis, nausea or vomiting, or any other complaints. She is had the symptoms numerous times in the past but a definitive cause cannot be determined. MD complaint: chest pain Onset (ago): day(s) Timing of current episode: constant Onset: during exertion Pain location: substernal Pain radiation: jaw/teeth Severity: mild Relieving factors: nothing Exacerbating factors: nothing Associated symptoms: Reports palpitations; Deny abdominal pain, diaphoresis, dyspnea, fever(s), nausea, syncope or vomiting Treatment prior to arrival: none Review of Systems General: Reports: other (negative unless marked) Const: Denies: fever, chills, body aches, fatigue, malaise or diaphoresis Eyes: Denies: change in vision or blurry vision ENMT: Denies: enlarged tonsils Card: Reports: chest pain and palpitations; Denies: irregular heart rhythm, syncope, pre-syncope, shortness of breath on exertion or shortness of breath when lying down Resp: Denies: shortness of breath, productive cough, non-productive cough, wheezing, coughing up blood or chest congestion GI: Denies: abdominal pain, nausea, vomiting, vomiting blood, coffee grounds in vomit, diarrhea, constipation, cramping, blood in stool or black tarry stool : Denies: flank pain, painful urination, urinary frequency, urinary urgency, decreased urine ouput, urinary incontinence or blood in urine Musc: Denies: neck pain, back pain, extremity pain, extremity swelling, joint pain, joint swelling, joint warmth or joint stiffness Skin/Breast: Denies: rash, skin tenderness or yellow skin Neuro: Denies: headache, numbness in extremities, weakness in extremities, changes in sensation, lack of coordination, difficulty walking, dizziness, vertigo or confusion Endo: Denies: excessive thirst, tired all the time, cold intolerance, excessive sweating, flushing or hot flashes Sang/Lymph: Denies: easy bruising, easy bleeding, petechiae or enlarged lymph nodes All/Imm: Denies: hives, throat swelling, tongue swelling, facial swelling or acute wheezing PFSH ED PFSH: Social History Smoking and tobacco status: never smoked Female Reproductive History: Date of last menstrual period: 10/30/19 Physical Exam Const: COMMON NORMALS: no apparent distress, oriented x3, no limitations, healthy appearing and well nourished EXAM LIMITATIONS: no altered mental status GENERAL APPEARANCE: cooperative, well kempt and well developed ORIENTATION/CONSCIOUSNESS: Yes awake HENMT: COMMON NORMALS: normocephalic, head/scalp atraumatic, hearing grossly normal bilaterally, external ears normal, EAC's normal, external nose normal and moist oral mucous membranes HEAD & SCALP: normal to inspection, normocephalic and atraumatic FACE & SINUS: normal facial exam and face symmetric NOSE: external nose normal and nares normal EXTERNAL EAR: Yes external ears normal EXTERNAL AUDITORY CANAL: EAC's normal MOUTH: oral and palatal mucosa normal and tongue normal Eye: COMMON NORMALS: PERRL, EOMs intact bilaterally, conjunctivae normal and no scleral icterus GENERAL EYE: normal appearance of both eyes and normal light reflex CONJUNCTIVA: Yes conjunctivae normal SCLERA: sclerae normal CORNEA: Yes corneas normal PUPIL: Yes PERRL DIRECT OPHTHALMOSCOPY: Yes normal light reflex Neck/C-Spine: COMMON NORMALS: full ROM, no lymphadenopathy, supple, no meni ngeal signs and no JVD GENERAL: Yes normal visual inspection and Yes trachea midline CERVICAL SPINE: Yes cervical ROM normal Chest: COMMONS NORMALS: inspection of chest normal and palpation of chest normal Resp: COMMON NORMALS: normal respiratory effort, no retractions, no use of accessory muscles and clear to auscultation bilaterally EFFORT & INSPECTION: Yes able to speak in complete sentences AUSCULTATION: clear to auscultation bilaterally Cardio: COMMON NORMALS: no JVD, regular rate, regular rhythm, S1 normal heart sound, S2 normal heart sound, no gallops, no clicks, no murmurs and no rub JUGULAR VENOUS DISTENTION: no JVD RATE: regular rate RHYTHM: regular rhythm HEART SOUNDS: S1 normal and S2 normal GI: COMMON NORMALS: soft to palpation, non-tender, no hepatosplenomegaly and no masses INSPECTION: Yes normal to inspection PALPATION: Yes soft and Yes no hepatosplenomegaly : COMMON NORMALS: Yes no CVA tenderness BLADDER/KIDNEY EXAM: Yes no CVA tenderness Back/Pelvis: COMMON NORMALS: no CVA tenderness, thoracic and lumbar spine normal to inspection, no thoracic nor lumbar tenderness and thoraco-lumbar ROM normal Extremity: COMMON NORMALS: normal to inspection, full ROM, normal capillary refill, no joint enlargement, no clubbing, cyanosis or edema and no calf tenderness Neuro: COMMON NORMALS: oriented x3, CN's II-XII intact bilaterally, moves all extremities, no focal motor deficits and no sensory deficits noted MENINGEAL SIGNS: Yes no meningeal signs Psych: COMMON NORMALS: mental status grossly normal, thought process normal, cooperative, affect normal, speech normal and activity/motor behavior normal APPEARANCE: Yes well kempt SPEECH: Yes normal speech THOUGHT PROCESS: normal thought process Skin: COMMON NORMALS: no rashes or lesions noted, skin turgor normal, no jaundice, no petechiae and no mottling GENERAL SKIN EXAM: no rashes or lesions noted and turgor normal Course Vital Signs: Vital signs: Vital Signs Temperature 98.2 F 11/12/19 18:46 Pulse Rate 89 11/12/19 20:59 Respiratory Rate 18 11/12/19 20:59 Blood Pressure 112/78 11/12/19 20:59 Pulse Oximetry 99 11/12/19 20:59 MDM - Chest Pain MDM Narrative: Medical decision making narrative: Brandon Hyde is a 29-year-old female who comes in with chest pain and rapid palpitations. She had similar symptoms several times in the past. She has had work-ups with been unrevealing and she is undergoing an outpatient work-up by Dr. Summers. Patient is slightly tachycardic here but is no longer having chest discomfort in order she states she has a heart rate that she had at home. Differential is extensive including acute coronary syndrome, PE, rhythm disturbance among many others. We will initiate work-up toward a cardiac palpitations PE evaluation at this time. Discharge -patient is feeling much better and is ready to go home. Her work-up today has been unrevealing. She does not want to stay any longer for any further lab work-up. She is asking for pain medication for her dental pain. She has some caries but I see no evidence of dental abscess/sepsis. Patient's EKG is unremarkable at this time. I see no sign of Urfkr-Jvzatkjnw-Ekivd, obstructed AV pathway, bifascicular block/bundle branch block, Brugada syndrome, Ydjv-Dpinnh-Ftjtvl syndrome, epsilon wave or long or short QTC syndrome. I believe the patient can continue to be worked up as an outpatient by Dr. Zelaya that we did review at length the signs and symptoms for which she needs to return here including chest pain, return of palpitations, syncope or near syncope or for any other problems that she may have. She understands this and she agrees to follow-up as directed or return here if needed. Lab Data: Labs: Lab Results 11/12/19 11/12/19 11/12/19 Range/Units 18:45 18:45 18:45 WBC 7.4 (4.0-10.0) 10^3/ uL RBC 3.59 L (4.1-5.3) 10^6/u L Hgb 11.3 L (11.5-15.3) g/dL Hct 34.1 L (37.0-47.0) % MCV 95.0 (81-99) fL MCH 31.5 (28.0-34.0) pg MCHC 33.1 (30.0-36.0) g/dL RDW 12.1 (12.1-15.1) % Plt Count 335 (130-400) 10^3/c mm MPV 9.1 (7.4-10.4) fL Neut % (Auto) 54.5 % Lymph % (Auto) 34.0 % [place] % (Auto) 8.4 % Eos % (Auto) 2.0 % Baso % (Auto) 0.8 % Neut # (Auto) 4.0 (1.8-7.7) 10^3/u L Lymph # (Auto) 2.5 (0.8-4.8) 10^3/u L [place] # (Auto) 0.6 (0.2-0.9) 10^3/u L Eos # (Auto) 0.2 (0.0-0.8) 10^3/u L Baso # (Auto) 0.1 (0.0-0.1) 10^3/u L Nucleated RBC % (a uto) 0 % Nucleated RBCs # 0.0 /100WBC PT 12.00 (10.5-13.3) SECO NDS INR 0.89 (0.8-1.2) D-Dimer 0.17 (0-0.59) ug/mIFE U Sodium 137 (136-145) mmol/L Potassium 3.9 (3.5-5.1) mmol/L Chloride 99 (98-107) mmol/L Carbon Dioxide 26 (22-29) mmol/L Anion Gap 15.9 (5-19) BUN 25 H (6-20) mg/dL Creatinine 0.7 (0.5-0.9) mg/dL GFR Calculation 99.6 (90-130) mL/min Glucose 93 (65-115) mg/dL Lactic Acid (0.5-2.2) mmol/L Calcium 9.8 (8.5-10.5) mg/dL Magnesium 2.1 (1.7-2.3) mg/dL Total Bilirubin 0.2 (0.15-1.2) mg/dL AST 25 (0-32) U/L ALT 38 H (0-33) U/L Alkaline Phosphata se 72 (35-105) IU/L Troponin T Baselin e (0-10) ng/mL Total Protein 6.9 (6.6-8.7) g/dL Albumin 4.6 (3.5-5.2) g/dL Globulin 2.3 (1.3-4.6) g/dL TSH 4.32 H (0.27-4.20) uIU/ mL HCG, Qual (Negative) Urine Color (Yellow) Urine Appearance (CLEAR) Urine pH (5-7) Ur Specific Gravit y (1.005-1.030) Urine Protein (Negative) Urine Glucose (UA) (Normal) Urine Ketones (Negative) Urine Blood (Negative) Urine Nitrate (Negative) Urine Bilirubin (NEGATIVE) Urine Urobilinogen (Negative) mg/dL Ur Leukocyte Yoanna ase (Negative) Urine RBC (0-2) /hpf Urine WBC (0-5) /hpf Ur Squamous Epith Cells (0-5) Urine Bacteria (NONE) Urine Opiates Scre en (Negative) ng/mL Ur Barbiturates Sc reen (Negative) ng/mL Ur Phencyclidine S crn (Negative) ng/mL Ur Amphetamines Sc reen (Negative) ng/mL U Benzodiazepines Scrn (Negative) ng/mL Urine Cocaine Scre en (Negative) ng/mL U Marijuana (THC) Screen (Negative) ng/mL Influenza Type A A g (Negative) POC Influenza B Ag (Negative) 11/12/19 11/12/19 11/12/19 Range/Units 18:45 18:45 19:15 WBC (4.0-10.0) 10^3/ uL RBC (4.1-5.3) 10^6/u L Hgb (11.5-15.3) g/dL Hct (37.0-47.0) % MCV (81-99) fL MCH (28.0-34.0) pg MCHC (30.0-36.0) g/dL RDW (12.1-15.1) % Plt Count (130-400) 10^3/c mm MPV (7.4-10.4) fL Neut % (Auto) % Lymph % (Auto) % [place] % (Auto) % Eos % (Auto) % Baso % (Auto) % Neut # (Auto) (1.8-7.7) 10^3/u L Lymph # (Auto) (0.8-4.8) 10^3/u L [place] # (Auto) (0.2-0.9) 10^3/u L Eos # (Auto) (0.0-0.8) 10^3/u L Baso # (Auto) (0.0-0.1) 10^3/u L Nucleated RBC % (a uto) % Nucleated RBCs # /100WBC PT (10.5-13.3) SECO NDS INR (0.8-1.2) D-Dimer (0-0.59) ug/mIFE U Sodium (136-145) mmol/L Potassium (3.5-5.1) mmol/L Chloride (98-107) mmol/L Carbon Dioxide (22-29) mmol/L Anion Gap (5-19) BUN (6-20) mg/dL Creatinine (0.5-0.9) mg/dL GFR Calculation (90-130) mL/min Glucose (65-115) mg/dL Lactic Acid (0.5-2.2) mmol/L Calcium (8.5-10.5) mg/dL Magnesium (1.7-2.3) mg/dL Total Bilirubin (0.15-1.2) mg/dL AST (0-32) U/L ALT (0-33) U/L Alkaline Phosphata se (35-105) IU/L Troponin T Baselin e 6 (0-10) ng/mL Total Protein (6.6-8.7) g/dL Albumin (3.5-5.2) g/dL Globulin (1.3-4.6) g/dL TSH (0.27-4.20) uIU/ mL HCG, Qual Negative (Negative) Urine Color (Yellow) Urine Appearance (CLEAR) Urine pH (5-7) Ur Specific Gravit y (1.005-1.030) Urine Protein (Negative) Urine Glucose (UA) (Normal) Urine Ketones (Negative) Urine Blood (Negative) Urine Nitrate (Negative) Urine Bilirubin (NEGATIVE) Urine Urobilinogen (Negative) mg/dL Ur Leukocyte Yoanna ase (Negative) Urine RBC (0-2) /hpf Urine WBC (0-5) /hpf Ur Squamous Epith Cells (0-5) Urine Bacteria (NONE) Urine Opiates Scre en (Negative) ng/mL Ur Barbiturates Sc reen (Negative) ng/mL Ur Phencyclidine S crn (Negative) ng/mL Ur Amphetamines Sc reen (Negative) ng/mL U Benzodiazepines Scrn (Negative) ng/mL Urine Cocaine Scre en (Negative) ng/mL U Marijuana (THC) Screen (Negative) ng/mL Influenza Type A A g Negative (Negative) POC Influenza B Ag Negative (Negative) 11/12/19 11/12/19 11/12/19 Range/Units 19:20 19:40 19:40 WBC (4.0-10.0) 10^3/ uL RBC (4.1-5.3) 10^6/u L Hgb (11.5-15.3) g/dL Hct (37.0-47.0) % MCV (81-99) fL MCH (28.0-34.0) pg MCHC (30.0-36.0) g/dL RDW (12.1-15.1) % Plt Count (130-400) 10^3/c mm MPV (7.4-10.4) fL Neut % (Auto) % Lymph % (Auto) % [place] % (Auto) % Eos % (Auto) % Baso % (Auto) % Neut # (Auto) (1.8-7.7) 10^3/u L Lymph # (Auto) (0.8-4.8) 10^3/u L [place] # (Auto) (0.2-0.9) 10^3/u L Eos # (Auto) (0.0-0.8) 10^3/u L Baso # (Auto) (0.0-0.1) 10^3/u L Nucleated RBC % (a uto) % Nucleated RBCs # /100WBC PT (10.5-13.3) SECO NDS INR (0.8-1.2) D-Dimer (0-0.59) ug/mIFE U Sodium (136-145) mmol/L Potassium (3.5-5.1) mmol/L Chloride (98-107) mmol/L Carbon Dioxide (22-29) mmol/L Anion Gap (5-19) BUN (6-20) mg/dL Creatinine (0.5-0.9) mg/dL GFR Calculation (90-130) mL/min Glucose (65-115) mg/dL Lactic Acid 1.0 (0.5-2.2) mmol/L Calcium (8.5-10.5) mg/dL Magnesium (1.7-2.3) mg/dL Total Bilirubin (0.15-1.2) mg/dL AST (0-32) U/L ALT (0-33) U/L Alkaline Phosphata se (35-105) IU/L Troponin T Baselin e (0-10) ng/mL Total Protein (6.6-8.7) g/dL Albumin (3.5-5.2) g/dL Globulin (1.3-4.6) g/dL TSH (0.27-4.20) uIU/ mL HCG, Qual (Negative) Urine Color Yellow (Yellow) Urine Appearance Clear (CLEAR) Urine pH 7 (5-7) Ur Specific Gravit y 1.015 (1.005-1.030) Urine Protein Neg (Negative) Urine Glucose (UA) Norm (Normal) Urine Ketones Negative (Negative) Urine Blood 2+ H (Negative) Urine Nitrate Negative (Negative) Urine Bilirubin Neg (NEGATIVE) Urine Urobilinogen Norm (Negative) mg/dL Ur Leukocyte Yoanna ase Negative (Negative) Urine RBC 5-10 H (0-2) /hpf Urine WBC 0-4 H (0-5) /hpf Ur Squamous Epith Cells 10-15 H (0-5) Urine Bacteria 1+ H (NONE) Urine Opiates Scre en Negative (Negative) ng/mL Ur Barbiturates Sc reen Negative (Negative) ng/mL Ur Phencyclidine S crn Negative (Negative) ng/mL Ur Amphetamines Sc reen Negative (Negative) ng/mL U Benzodiazepines Scrn Negative (Negative) ng/mL Urine Cocaine Scre en Negative (Negative) ng/mL U Marijuana (THC) Screen Negative (Negative) ng/mL Influenza Type A A g (Negative) POC Influenza B Ag (Negative) Imaging Data^: CXR: My impression: No acute cardiopulmonary findings. EKG Data^: EKG 1: Attestation: I personally reviewed and interpreted this EKG as follows: EKG interpretation date: 11/12/19 EKG interpretation time: 19:13 Interpretation: Normal sinus rhythm at 99 beats a minute, no acute ST or T wave changes, no blocks, normal intervals, normal axis. Discharge Plan Discharge Patient Disposition: Home, Self-Care Clinical Impression: Heart palpitations Chest pain Qualifiers: Chest pain type: unspecified Qualified Code(s): R07.9 - Chest pain, unspecified Condition: Stable Prescriptions: No Action paroxetine HCl 40 mg tablet 40 mg PO DAILY RF: 0 naproxen sodium 220 mg capsule 500 mg PO BID PRN (Reason: Pain) RF: 0 melatonin 10 mg capsule 3 mg PO BEDTIME RF: 0 diphenhydramine HCl [NightTime Sleep Aid (diphen)] 25 mg capsule 25 mg PO DAILY PRN (Reason: Sleep) RF: 0 aspirin 325 mg Tablet 325 mg PO DAILY RF: 0 Advil 1 tab PO PRN RF: 0 trazodone 50 mg Tablet 50 mg PO BEDTIME RF: 0 famotidine 20 mg Tablet 20 mg PO BEDTIME RF: 0 aripiprazole 5 mg Tablet 5 mg PO DAILY RF: 0 Discharge Orders: Discharge Order (Routine); Ordered 11/12/19 Ordered By: Sarah Day Referrals: Emory Fuentes MD [Primary Care Provider] - Nikki Zelaya MD [Physician] - 1-3 days Discharge Diet: Advance as tolerated Discharge Activity: Limit activity as instructed Patient Instructions: Chest Pain (ED), Palpitations (ED) Activity Restrictions/Additional Instructions: Please return to the ER immediately for any of the signs or symptoms listed on your discharge instruction sheets, worsening/changing of your symptoms, you are not getting better as quickly as expected, or for ANY other cause or concerns. No exercise or heavy physical exertion until seen by your manager analytical or Dr. Zelaya. Return to the ER for return of chest pain, shortness of breath, you pass out or nearly pass out, or for any other cause for concern. Discharge Date/Time: 11/12/19 21:00 Coding Level of Care Code ED Geodetic Survey Director for Chg Fwd Exam Comprehensive The documentation recorded by the Piotr short Bridget Annette, accurately reflects the service I personally performed and the decisions made by Shay dill Eli N Nov 12, 2019 18:44
--- NOTE | 2019-11-12 19:07 | XR_ITS ---
WS: [id number] CHEST XRAY TECHNIQUE: Portable chest. CLINICAL INFORMATION: cough COMPARISON: November 06, 2019 FINDINGS: Heart: Normal cardiac silhouette. Lungs: Lungs are clear. No consolidation or pleural effusion. Bones: Normal visualized bony structures. XR/XR chest 1V portable [id number] IMPRESSION: Normal chest
[2019-11-12] MEDS: ondansetron 2 mg/ML SDV 2 mL 4 MG IVP (19:26)
[2019-11-12] MEDS: sodium chloride 0.9% 1,000 ML 100 ML IV (19:26)
[2019-11-12 19:29] LABS: Basophils # 0.1 10^3/uL (0.0-0.1); Basophils % 0.8 %; Eosinophils # 0.2 10^3/uL (0.0-0.8); Hematocrit 34.1 % (37.0-47.0); Hemoglobin 11.3 g/dL (11.5-15.3); Lymphocytes # 2.5 10^3/uL (0.8-4.8); Mean Corpuscular HGB Conc 33.1 g/dL (30.0-36.0); Mean Corpuscular Hemoglobin 31.5 pg (28.0-34.0); Mean Platelet Volume 9.1 fL (7.4-10.4); Monocytes # 0.6 10^3/uL (0.2-0.9); Monocytes % 8.4 %; Neutrophils % 54.5 %; Nucleated Red Blood Cells % 0 %; Platelet Count 335 10^3/cmm (130-400); Red Blood Count 3.59 10^6/uL (4.1-5.3); Red Cell Distribution Width 12.1 % (12.1-15.1); White Blood Count 7.4 10^3/uL (4.0-10.0)
[2019-11-12] MEDS: metoprolol tartrate 1 mg/1 mL SDV 5 mL 5 MG IV (19:29)
[2019-11-12 19:55] LABS: Troponin(5th) Baseline 6 ng/mL (0-10)
[2019-11-12 20:01] LABS: HCG, Serum Qual Negative (Negative)
[2019-11-12 20:05] LABS: Alanine Aminotransferase 38 U/L (0-33); Albumin Level 4.6 g/dL (3.5-5.2); Alkaline Phosphatase 72 IU/L (35-105); Anion Gap 15.9 (5-19); Aspartate Amino Transferase 25 U/L (0-32); Blood Urea Nitrogen 25 mg/dL (6-20); Calcium 9.8 mg/dL (8.5-10.5); Carbon Dioxide 26 mmol/L (22-29); Chloride 99 mmol/L (98-107); Globulin 2.3 g/dL (1.3-4.6); Glomerular Filtration Rate 99.6 mL/min (90-130); Glucose 93 mg/dL (65-115); Magnesium 2.1 mg/dL (1.7-2.3); Potassium 3.9 mmol/L (3.5-5.1); Sodium 137 mmol/L (136-145); Thyroid Stimulating Hormone 4.32 uIU/mL (0.27-4.20); Total Bilirubin 0.2 mg/dL (0.15-1.2); Total Protein 6.9 g/dL (6.6-8.7)
[2019-11-12 20:06] LABS: INR 0.89 (0.8-1.2)
[2019-11-12 20:07] LABS: Influenza A by IFA Negative (Negative); Influenza B by IFA Negative (Negative)
[2019-11-12 20:20] LABS: D Dimer 0.17 ug/mIFEU (0-0.59)
[2019-11-12] MEDS: acetaminophen 500 mg Tablet 1000 MG PO (20:43)
[2019-11-12 21:07] LABS: Amphetamines Screen Urine Negative (Negative); Barbiturates Screen Urine Negative (Negative); Benzodiazepines Screen Urine Negative (Negative); Cocaine Screen Urine Negative (Negative); Opiate Screen Urine Negative (Negative); PCP Screen Urine Negative (Negative); THC Screen Urine Negative (Negative)
[2019-11-12 21:14] LABS: Add Urine Culture? No; Bacteria Urine 1+; Bilirubin Urine Neg (NEGATIVE); Blood Urine 2+ (Negative); Glucose Urine UA Norm (Normal); Ketones Urine Negative (Negative); Leukocyte Esterase Urine Negative (Negative); Nitrate Urine Negative (Negative); Protein Urine Neg (Negative); Specific Gravity, Urine 1.015 (1.005-1.030); Urine Appearance Clear (CLEAR); Urine Color Yellow (Yellow); Urobilinogen Urine Norm (Negative); WBC Urine 0-4 /hpf (0-5); pH Urine 7 (5-7)
--- NOTE | 2019-11-14 14:23 | DCPLANNER ---
manager chinese had message to schedule a follow up appointment for patient with [facility]. Patient has a follow up appointment scheduled for Tuesday, December 10, 2019 at 9:[address] Zelaya. Clinic will contact patient with appointment information.
--- NOTE | 2019-12-17 08:39 | DCPLANNER ---
Patient did attend appointment scheduled for 12.10.19 with [facility].
== END 2019-11-12 21:00 | disposition home or self-care (01) ==
PROVIDERS: Emergency Provider Emergency Medicine; Family Provider Family Medicine; PCP Family Medicine
DX: R00.2 Palpitations (principal); R07.9 Chest pain, unspecified
CPT/HCPCS: 36415; 71045; 80053; 80307; 81001; 83605; 83735; 84443; 84484; 84703; 85025; 85378; 85610; 87804; 96360; 96361; 96374; 96375; 99283; 99284; A9270; J2405; J3490; J7030

== ENCOUNTER 2019-11-13 08:14 | Emergency (ER) | payer MEDICAID, SELFPAY ==
[2019-11-13 08:27] VITALS: BP 124/78; PULSE 115; RESP 18; TEMP 36.6; O2SAT 100; BMI 28.3
[2019-11-13 08:34] VITALS: O2SAT 99
--- NOTE | 2019-11-13 08:46 | W.ED.ANXIETY ---
HPI - Anxiety General: Chief Complaint: Anxiety Stated Complaint: WANTS TO GO TO UNIT Time Seen by Provider: 11/13/19 08:27 Source: patient Mode of arrival: ambulatory Limitations: no limitations History of Present Illness: HPI narrative: Patient is a 29-year-old female who presents to ED today requesting to go to NPU to de-stress . Patient states she is stressed because she lives with her grandparents and they do not always get along . She also states she has been volunteering at [employer] and apparently got into trouble with her boss there and states she is frustrated because of that. Patient tells me she is not suicidal or homicidal. She is not experiencing acute hallucinations. Patient tells me she does struggle with depression but is on paroxetine for this. complaint: anxiety Onset (ago): unknown (chronic ) Quality: constant Place: home History of similar episodes: Yes Provoking factors: emotional stress and work/job stress Relieving factors: nothing Exacerbating factors: nothing Associated symptoms: Reports no associated symptoms; Deny chest pain, chills, fever(s), headache(s), nausea, palpitations, syncope or vomiting Review of Systems Const: Denies: fever or chills Card: Denies: chest pain, palpitations, lightheadedness or syncope Resp: Denies: shortness of breath GI: Denies: abdominal pain, nausea, vomiting or diarrhea Skin/Breast: Denies: rash Neuro: Denies: headache Psych: Reports: anxiety and depression; Denies: hopelessness, loss of interest, paranoia, visual hallucinations, auditory hallucinations, suicidal ideation or homicidal ideation [facility] ED PFSH: Social History Smoking and tobacco status: never smoked Female Reproductive History: Date of last menstrual period: 10/23/19 Physical Exam Const: COMMON NORMALS: no apparent distress, oriented x3, alert and well nourished GENERAL APPEARANCE: cooperative and well kempt Resp: COMMON NORMALS: normal respiratory effort and clear to auscultation bilaterally AUSCULTATION: clear to auscultation bilaterally Cardio: COMMON NORMALS: regular rate and regular rhythm RATE: regular rate RHYTHM: regular rhythm Neuro: COMMON NORMALS: oriented x3 SENSORIUM/ORIENTATION: Yes alert Psych: COMMON NORMALS: mental status grossly normal, thought process normal, cooperative, affect normal, speech normal and activity/motor behavior normal APPEARANCE: Yes well kempt ACTIVITY/MOTOR BEHAVIOR: Yes appropriate eye contact and No psychomotor agitation SPEECH: Yes normal speech THOUGHT PROCESS: normal thought process ATTENTION/CONCENTRATION: Yes attention grossly intact MEMORY/COGNITION: Yes memory grossly intact and Yes cognition grossly intact INSIGHT: insight good JUDGEMENT: judgment good Course Vital Signs: Vital signs: Vital Signs Temperature 97.8 F 11/13/19 08:27 Pulse Rate 100 11/13/19 08:54 Respiratory Rate 17 11/13/19 08:54 Blood Pressure 122/78 11/13/19 08:54 Pulse Oximetry 99 11/13/19 08:54 MDM - Anxiety MDM Narrative: Medical decision making narrative: Patient does not meet inpatient criteria for NPU. She is not acutely suicidal, homicidal, or psychotic. She poses no imminent danger to herself or others at this time. Recommend she go to [facility] for an intake screening exam. Return to ED precautions given. Discharge Plan Discharge Patient Disposition: Home, Self-Care Clinical Impression: Anxiety Depression Qualifiers: Depression Type: major depressive disorder Major depression recurrence: recurrent Active/Remission status: currently active Major depression episode severity: mild Qualified Code(s): F33.0 - Major depressive disorder, recurrent, mild Condition: Stable Prescriptions: No Action paroxetine HCl 40 mg tablet 40 mg PO DAILY RF: 0 naproxen sodium 220 mg capsule 500 mg PO BID PRN (Reason: Pain) RF: 0 melatonin 10 mg capsule 3 mg PO BEDTIME RF: 0 diphenhydramine HCl [NightTime Sleep Aid (diphen)] 25 mg capsule 25 mg PO DAILY PRN (Reason: Sleep) RF: 0 aspirin 325 mg Tablet 325 mg PO DAILY RF: 0 Advil 1 tab PO PRN RF: 0 trazodone 50 mg Tablet 50 mg PO BEDTIME RF: 0 famotidine 20 mg Tablet 20 mg PO BEDTIME RF: 0 aripiprazole 5 mg Tablet 5 mg PO DAILY RF: 0 Discharge Orders: Discharge Order (Routine); Ordered 11/13/19 Ordered By: Ana Alanis Referrals: Emory Fuentes MD [Primary Care Provider] - Activity Restrictions/Additional Instructions: As discussed [facility] and get an intake screening exam for the depression/anxiety. You do not meet inpatient criteria for NPU at this time. Return to ED at any time if you begin feeling suicidal or homicidal. Discharge Date/Time: 11/13/19 08:54 Coding Level of Care Code ED Income Tax Administrator for Serina Chandler
[2019-11-13 08:54] VITALS: BP 122/78; PULSE 100; RESP 17; O2SAT 99
== END 2019-11-13 08:54 | disposition home or self-care (01) ==
LOC: ER 08:57
PROVIDERS: Emergency Provider Physician Assistant; Family Provider Family Medicine; PCP Family Medicine
DX: F41.9 Anxiety disorder, unspecified (principal); F32.9 Major depressive disorder, single episode, unspecified
CPT/HCPCS: 99281

== ENCOUNTER 2019-11-15 05:42 | Emergency (ER) | payer MEDICAID, SELFPAY ==
[2019-11-15 05:44] VITALS: BP 128/84; PULSE 106; RESP 16; TEMP 36.6; O2SAT 100; BMI 28.3
--- NOTE | 2019-11-15 05:56 | PC.NURSE ---
EKG done at 0553 and shown to ER doctor
--- NOTE | 2019-11-15 06:01 | PC.NURSE ---
Patient denies wanting to harm herself and states she was upset with her grandmother for taking her phone.
[2019-11-15 06:29] LABS: Basophils % 0.7 %; Eosinophils # 0.1 10^3/uL (0.0-0.8); Eosinophils % 1.8 %; Hematocrit 35.7 % (37.0-47.0); Hemoglobin 11.7 g/dL (11.5-15.3); Lymphocytes # 1.4 10^3/uL (0.8-4.8); Lymphocytes % 24.5 %; Mean Corpuscular HGB Conc 32.8 g/dL (30.0-36.0); Mean Corpuscular Hemoglobin 31.3 pg (28.0-34.0); Mean Corpuscular Volume 95.5 fL (81-99); Mean Platelet Volume 8.9 fL (7.4-10.4); Monocytes # 0.4 10^3/uL (0.2-0.9); Monocytes % 6.9 %; Neutrophils # 3.7 10^3/uL (1.8-7.7); Neutrophils % 65.9 %; Nucleated Red Blood Cells % 0 %; Platelet Count 306 10^3/cmm (130-400); Red Blood Count 3.74 10^6/uL (4.1-5.3); Red Cell Distribution Width 12.4 % (12.1-15.1); White Blood Count 5.5 10^3/uL (4.0-10.0)
[2019-11-15 06:49] LABS: Alanine Aminotransferase 26 U/L (0-33); Albumin Level 4.4 g/dL (3.5-5.2); Alkaline Phosphatase 70 IU/L (35-105); Anion Gap 15.9 (5-19); Aspartate Amino Transferase 17 U/L (0-32); Blood Urea Nitrogen 16 mg/dL (6-20); Calcium 9.5 mg/dL (8.5-10.5); Carbon Dioxide 27 mmol/L (22-29); Chloride 103 mmol/L (98-107); Globulin 3.3 g/dL (1.3-4.6); Glucose 111 mg/dL (65-115); Potassium 3.9 mmol/L (3.5-5.1); Salicylate 2.1 mg/dL (3-10); Sodium 142 mmol/L (136-145); Total Bilirubin 0.3 mg/dL (0.15-1.2); Total Protein 7.7 g/dL (6.6-8.7)
[2019-11-15 06:50] LABS: Acetaminophen < 5.0 ug/mL (10-30); Alcohol Level < 10 mg/dL (0-10)
[2019-11-15 06:53] LABS: Lithium 0.1 mmol/L (0.6-1.2)
[2019-11-15 07:00] LABS: Amphetamines Screen Urine Negative (Negative); Barbiturates Screen Urine Negative (Negative); Benzodiazepines Screen Urine Negative (Negative); Cocaine Screen Urine Negative (Negative); Opiate Screen Urine Negative (Negative); PCP Screen Urine Negative (Negative); THC Screen Urine Negative (Negative)
--- NOTE | 2019-11-15 07:03 | ED_ITS ---
HPI - Psych General: Chief Complaint: Psychiatric Symptoms Stated Complaint: stress Time Seen by Provider: 11/15/19 07:03 History of Present Illness: HPI Narrative: 29-year-old female presents emergency room with complaint of having had a episode in discussing with her she got in a disagreement with her grandmother she is living with and it sounds that she may have had an anxiety attack. She reports her rapid heart rate facial numbness bilaterally that resolved the first time she had abdominal back and chest pain all of which has resolved. She has had these episodes multiple times in the past. She is not having any symptoms at all now. When asked specifically she is thinking harm herself or anyone else at this time she says no but she has thought about it in the past. She denies any plan or intent to harm herself at this time. MD complaint: feels depressed Duration: intermittent Context: significant life stressor Associated symptoms: Reports no associated symptoms Treatments prior to arrival: none Review of Systems Const: Denies: fever, chills, body aches, change in appetite, fatigue or malaise ENMT: Denies: throat pain, ear pain, nasal discharge or nasal congestion Card: Denies: chest pain, edema, shortness of breath on exertion or shortness of breath when lying down Resp: Denies: shortness of breath, productive cough or non-productive cough GI: Denies: abdominal pain, nausea, vomiting, vomiting blood, coffee grounds in vomit, diarrhea, constipation, bloating, blood in stool or black tarry stool : Denies: flank pain, difficulty urinating, painful urination, urinary frequency or urinary urgency Skin/Breast: Denies: rash or itching [facility] ED PFSH: Social History Smoking and tobacco status: never smoked Female Reproductive History: Date of last menstrual period: 10/23/19 Physical Exam Const: COMMON NORMALS: no apparent distress GENERAL APPEARANCE: cooperative and comfortable ORIENTATION/CONSCIOUSNESS: Yes awake, Yes oriented to person, Yes oriented to place and Yes oriented to time HENMT: COMMON NORMALS: normocephalic, head/scalp atraumatic, hearing grossly normal bilaterally, external ears normal, EAC's normal, TM's normal bilaterally, nasal mucous membranes and turbinates normal, moist oral mucous membranes and oropharynx normal HEAD & SCALP: normocephalic and atraumatic NOSE: nasal mucous membranes and turbinates normal EXTERNAL EAR: Yes external ears normal EXTERNAL AUDITORY CANAL: EAC's normal TYMPANIC MEMBRANE: TM's normal bilaterally Eye: COMMON NORMALS: PERRL, EOMs intact bilaterally, conjunctivae normal and no scleral icterus CONJUNCTIVA: Yes conjunctivae normal PUPIL: Yes PERRL Neck/C-Spine: COMMON NORMALS: full ROM, no lymphadenopathy, supple and no JVD Lymph: LYMPHATIC: no lymphadenopathy noted and no lymphedema noted Resp: COMMON NORMALS: normal respiratory effort, no retractions, no use of accessory muscles and clear to auscultation bilaterally AUSCULTATION: clear to auscultation bilaterally Cardio: COMMON NORMALS: no JVD, regular rate, regular rhythm and no murmurs RATE: regular rate RHYTHM: regular rhythm GI: COMMON NORMALS: soft to palpation and no hepatosplenomegaly AUSCULTATION: Yes normoactive bowel sounds PALPATION: Yes soft, No tender, No guarding and Yes no hepatosplenomegaly Extremity: COMMON NORMALS: normal to inspection, normal capillary refill, no clubbing, cyanosis or edema, no calf tenderness and no pedal edema Neuro: SENSORIUM/ORIENTATION: Yes oriented to person, Yes oriented to place and Yes oriented to time Skin: COMMON NORMALS: no rashes or lesions noted GENERAL SKIN EXAM: no rashes or lesions noted MDM - Psych Lab Data: Labs: Lab Results 11/15/19 11/15/19 11/15/19 Range/Units 06:22 06:22 06:22 WBC 5.5 (4.0-10.0) 10^3/ uL RBC 3.74 L (4.1-5.3) 10^6/u L Hgb 11.7 (11.5-15.3) g/dL Hct 35.7 L (37.0-47.0) % MCV 95.5 (81-99) fL MCH 31.3 (28.0-34.0) pg MCHC 32.8 (30.0-36.0) g/dL RDW 12.4 (12.1-15.1) % Plt Count 306 (130-400) 10^3/c mm MPV 8.9 (7.4-10.4) fL Neut % (Auto) 65.9 % Lymph % (Auto) 24.5 % Casey % (Auto) 6.9 % Eos % (Auto) 1.8 % Baso % (Auto) 0.7 % Neut # (Auto) 3.7 (1.8-7.7) 10^3/u L Lymph # (Auto) 1.4 (0.8-4.8) 10^3/u L Casey # (Auto) 0.4 (0.2-0.9) 10^3/u L Eos # (Auto) 0.1 (0.0-0.8) 10^3/u L Baso # (Auto) 0.0 (0.0-0.1) 10^3/u L Nucleated RBC % (a uto) 0 % Nucleated RBCs # 0.0 /100WBC Sodium 142 (136-145) mmol/L Potassium 3.9 (3.5-5.1) mmol/L Chloride 103 (98-107) mmol/L Carbon Dioxide 27 (22-29) mmol/L Anion Gap 15.9 (5-19) BUN 16 (6-20) mg/dL Creatinine 0.6 (0.5-0.9) mg/dL GFR Calculation 119.0 (90-130) mL/min Glucose 111 (65-115) mg/dL Calcium 9.5 (8.5-10.5) mg/dL Total Bilirubin 0.3 (0.15-1.2) mg/dL AST 17 (0-32) U/L ALT 26 (0-33) U/L Alkaline Phosphata se 70 (35-105) IU/L Total Protein 7.7 (6.6-8.7) g/dL Albumin 4.4 (3.5-5.2) g/dL Globulin 3.3 (1.3-4.6) g/dL Salicylates 2.1 L (3-10) mg/dL Urine Opiates Scre en (Negative) ng/mL Acetaminophen < 5.0 L (10-30) ug/mL Ur Barbiturates Sc reen (Negative) ng/mL Phenytoin 1.0 L (10-20) ug/mL Valproic Acid < 2.8 L (50-100) mcg/mL Carbamazepine < 2.0 L (4.0-12.0) ug/mL Ur Phencyclidine S crn (Negative) ng/mL Ur Amphetamines Sc reen (Negative) ng/mL U Benzodiazepines Scrn (Negative) ng/mL [place] 0.1 L (0.6-1.2) mmol/L Urine Cocaine Scre en (Negative) ng/mL U Marijuana (THC) Screen (Negative) ng/mL Ethyl Alcohol < 10 (0-10) mg/dL 11/15/19 Range/Units 06:30 WBC (4.0-10.0) 10^3/ uL RBC (4.1-5.3) 10^6/u L Hgb (11.5-15.3) g/dL Hct (37.0-47.0) % MCV (81-99) fL MCH (28.0-34.0) pg MCHC (30.0-36.0) g/dL RDW (12.1-15.1) % Plt Count (130-400) 10^3/c mm MPV (7.4-10.4) fL Neut % (Auto) % Lymph % (Auto) % Casey % (Auto) % Eos % (Auto) % Baso % (Auto) % Neut # (Auto) (1.8-7.7) 10^3/u L Lymph # (Auto) (0.8-4.8) 10^3/u L Casey # (Auto) (0.2-0.9) 10^3/u L Eos # (Auto) (0.0-0.8) 10^3/u L Baso # (Auto) (0.0-0.1) 10^3/u L Nucleated RBC % (a uto) % Nucleated RBCs # /100WBC Sodium (136-145) mmol/L Potassium (3.5-5.1) mmol/L Chloride (98-107) mmol/L Carbon Dioxide (22-29) mmol/L Anion Gap (5-19) BUN (6-20) mg/dL Creatinine (0.5-0.9) mg/dL GFR Calculation (90-130) mL/min Glucose (65-115) mg/dL Calcium (8.5-10.5) mg/dL Total Bilirubin (0.15-1.2) mg/dL AST (0-32) U/L ALT (0-33) U/L Alkaline Phosphata se (35-105) IU/L Total Protein (6.6-8.7) g/dL Albumin (3.5-5.2) g/dL Globulin (1.3-4.6) g/dL Salicylates (3-10) mg/dL Urine Opiates Scre en Negative (Negative) ng/mL Acetaminophen (10-30) ug/mL Ur Barbiturates Sc reen Negative (Negative) ng/mL Phenytoin (10-20) ug/mL Valproic Acid (50-100) mcg/mL Carbamazepine (4.0-12.0) ug/mL Ur Phencyclidine S crn Negative (Negative) ng/mL Ur Amphetamines Sc reen Negative (Negative) ng/mL U Benzodiazepines Scrn Negative (Negative) ng/mL [place] (0.6-1.2) mmol/L Urine Cocaine Scre en Negative (Negative) ng/mL U Marijuana (THC) Screen Negative (Negative) ng/mL Ethyl Alcohol (0-10) mg/dL Discharge Plan Discharge Patient Disposition: Home, Self-Care Clinical Impression: Heart palpitations, Anxiety Condition: Stable Prescriptions: No Action naproxen sodium 220 mg capsule 500 mg PO BID PRN (Reason: Pain) RF: 0 melatonin 10 mg capsule 3 mg PO BEDTIME RF: 0 diphenhydramine HCl [NightTime Sleep Aid (diphen)] 25 mg capsule 25 mg PO DAILY PRN (Reason: Sleep) RF: 0 metoprolol succinate 25 mg Tablet Extended Release 24 Hr 12.5 mg PO BID RF: 0 Trintellix 10 mg Tablet 10 mg PO DAILY RF: 0 aspirin 325 mg Tablet 325 mg PO DAILY RF: 0 Advil 1 tab PO PRN RF: 0 trazodone 50 mg Tablet 50 mg PO BEDTIME RF: 0 famotidine 20 mg Tablet 20 mg PO BEDTIME RF: 0 aripiprazole 5 mg Tablet 5 mg PO DAILY RF: 0 Discharge Orders: Discharge Order (Routine); Ordered 11/15/19 Ordered By: Dima Encinas Referrals: Emory Fuentes MD [Primary Care Provider] - Discharge Diet: Usual diet Discharge Activity: Resume usual activity Activity Restrictions/Additional Instructions: Follow-up with behavioral health as planned. Return if her problems Discharge Date/Time: 11/15/19 07:39 Coding Level of Care Code ED Director Of Housing And Energy Services for Chg Fwd Exam Comprehensive
--- NOTE | 2019-11-15 07:08 | ECG_ITS ---
Measurements Intervals [place] Rate: 117 P: 18 CA: 129 QRS: 5 QRSD: 94 T: 3 QT: 300 QTc: 420 SINUS TACHYCARDIA Compared to ECG 11/06/2019 17:24:37 Sinus rhythm no longer present Incomplete right bundle-branch block no longer present Electronically Signed On 11-15-2019 11:09:40 [employer] by Nikki Zelaya M.D. [id number]
[2019-11-15 07:12] LABS: Carbamazepine Tegretol < 2.0 ug/mL (4.0-12.0); Valproic Acid Level < 2.8 mcg/mL (50-100)
[2019-11-15 07:39] VITALS: BP 116/76; PULSE 104; O2SAT 98
--- NOTE | 2019-11-18 11:01 | DCPLANNER ---
case technician called patient due to multiple visits. international sales manager called [phone], unable to speak with patient and unable to leave a voicemail, due to no voicemail box set up. international sales manager then called [phone], unable to speak with patient at this number as well, and unable to leave a voicemail.
== END 2019-11-15 07:39 | disposition home or self-care (01) ==
PROVIDERS: Emergency Medicine; Emergency Provider Family Medicine; Family Provider Family Medicine; PCP Family Medicine
DX: F41.9 Anxiety disorder, unspecified (principal); R00.2 Palpitations
CPT/HCPCS: 36415; 80053; 80156; 80164; 80178; 80185; 80307; 85025; 93005; 99284; A9270

== ENCOUNTER 2019-11-17 01:48 | Emergency (ER) | payer MEDICAID, SELFPAY ==
[2019-11-17 01:59] VITALS: BP 133/94; PULSE 98; RESP 18; TEMP 36.9; O2SAT 98; BMI 28.3
--- NOTE | 2019-11-17 02:35 | ED_ITS ---
HPI - General Adult General: Chief complaint: General Medical Stated complaint: JAW PAIN Time Seen by Provider: 11/17/19 02:28 History of Present Illness: HPI narrative: Patient complains about right jaw pain worse after she wakes up in the morning has gone on for months really bad last night hurts to eat chew talk at times. MD complaint: Denies any chest pain denies any palpitations does have a history of anxi Onset (ago): month(s) Severity: mild Quality: aching Pain Consistency: intermittent Relieving factors: rest Exacerbating factors: movement Associated symptoms: Reports no associated symptoms; Deny chest pain, dyspnea, headache(s), nausea, rash or vomiting Treatments prior to arrival: none Review of Systems Const: Denies: fever, chills or body aches Eyes: Denies: change in vision or blurry vision ENMT: Reports: other (Jaw pain times many months); Denies: throat pain or nasal congestion Card: Denies: chest pain or shortness of breath on exertion Resp: Denies: shortness of breath, productive cough or non-productive cough GI: Denies: abdominal pain, nausea or vomiting Musc: Denies: extremity pain Skin/Breast: Denies: rash Neuro: Denies: headache Psych: Reports: anxiety; Denies: depression Sang/Lymph: Denies: easy bruising PFSH ED PFSH: Social History Smoking and tobacco status: never smoked Female Reproductive History: Date of last menstrual period: 10/23/19 Physical Exam Const: COMMON NORMALS: no apparent distress, average body habitus and oriented x3 HENMT: COMMON NORMALS: normocephalic HEAD & SCALP: normal to inspection and normocephalic FACE & SINUS: normal facial exam and other (Right TMJ tenderness with range of motion) Eye: COMMON NORMALS: conjunctivae normal GENERAL EYE: normal appearance of both eyes CONJUNCTIVA: Yes conjunctivae normal Neck/C-Spine: COMMON NORMALS: no JVD Chest: COMMONS NORMALS: inspection of chest normal Resp: COMMON NORMALS: normal respiratory effort and clear to auscultation bilaterally AUSCULTATION: clear to auscultation bilaterally Cardio: COMMON NORMALS: no JVD, regular rate and regular rhythm RATE: regular rate RHYTHM: regular rhythm GI: COMMON NORMALS: normal to inspection, nondistended, normoactive bowel sounds Extremity: COMMON NORMALS: normal to inspection and full ROM Neuro: COMMON NORMALS: oriented x3 Course Vital Signs: Vital signs: Vital Signs Temperature 98.4 F 11/17/19 01:59 Pulse Rate 98 11/17/19 01:59 Respiratory Rate 18 11/17/19 01:59 Blood Pressure 133/94 11/17/19 01:59 Pulse Oximetry 98 11/17/19 01:59 Discharge Plan Discharge Patient Disposition: Home, Self-Care Clinical Impression: Anxiety TMJ arthralgia Qualifiers: Laterality: right Qualified Code(s): M26.621 - Arthralgia of right temporoma ndibular joint Condition: Stable Prescriptions: No Action naproxen sodium 220 mg capsule 500 mg PO BID PRN (Reason: Pain) RF: 0 melatonin 10 mg capsule 3 mg PO BEDTIME RF: 0 diphenhydramine HCl [NightTime Sleep Aid (diphen)] 25 mg capsule 25 mg PO DAILY PRN (Reason: Sleep) RF: 0 metoprolol succinate 25 mg Tablet Extended Release 24 Hr 12.5 mg PO BID RF: 0 Trintellix 10 mg Tablet 10 mg PO DAILY RF: 0 aspirin 325 mg Tablet 325 mg PO DAILY RF: 0 Advil 1 tab PO PRN RF: 0 trazodone 50 mg Tablet 50 mg PO BEDTIME RF: 0 famotidine 20 mg Tablet 20 mg PO BEDTIME RF: 0 aripiprazole 5 mg Tablet 5 mg PO DAILY RF: 0 Discharge Orders: Discharge Order (Routine); Ordered 11/17/19 Ordered By: Silviano Velasco Referrals: Emory Fuentes MD [Primary Care Provider] - Discharge Diet: Advance as tolerated Discharge Activity: Resume usual activity Patient Instructions: TMJ (Temporomandibular Joint Syndrome) Activity Restrictions/Additional Instructions: Follow-up with Dr. Fuentes and see if he would do a referral to an ear nose throat doctor to possibly treat the TMJ. Wear the appliance to have at night to see if that will help. Try to keep anxiety out of life. Coding Level of Care Code ED Neuro Intensivist Physician for Serina Chandler
--- NOTE | 2019-11-17 02:46 | PC.NURSE ---
Received patient to er via ems with complaint of ongoing jaw pain. Privider with patient.
--- NOTE | 2019-11-18 14:14 | DCPLANNER ---
manager social media called patient due to multiple visits. manager social media called [phone], unable to speak with patient and unable to leave a voicemail, due to no voicemail box set up. manager social media then called [phone], unable to speak with patient at this number as well, and unable to leave a voicemail.
== END 2019-11-17 02:53 | disposition home or self-care (01) ==
LOC: ER 02:35
PROVIDERS: Emergency Provider Nurse Practitioner Family; Family Provider Family Medicine; PCP Family Medicine
DX: M26.621 Arthralgia of right temporomandibular joint (principal); F41.9 Anxiety disorder, unspecified
CPT/HCPCS: 99281

== ENCOUNTER 2019-11-18 09:21 | Outpatient (CLI) | payer MEDICAID, SELFPAY ==
--- NOTE | 2019-11-18 09:30 | USCV_ITS ---
Kathi Torres Age: 29 Gender: F : 1990 Exam Date: 11/18/2019 09:37 Ordering Phys: Nikki Zelaya MD ([email or web address]) Technologist: Lilliam Hoyt Exam Location: [facility] – [place] Indication: TACHYCARDIA, HOLE IN HEART HISTORY BP: / HR: 58 Rhythm: Sinus Technical Quality: Adequate MEASUREMENTS (Male / Female) Normal Values 2D ECHO LV Diastolic Diameter PLAX 4.4 cm 4.2 - 5.9 / 3.9 - 5.3 cm LV Systolic Diameter PLAX 2.5 cm IVS Diastolic Thickness 0.6 cm 0.6 - 1.0 / 0.6 - 0.9 cm IVS Systolic Thickness 1.1 cm LVPW Diastolic Thickness 0.5 cm 0.6 - 1.0 / 0.6 - 0.9 cm LVPW Systolic Thickness 1.4 cm LVOT Diameter 2.0 cm LV Ejection Fraction 2D Teich 75.3 % LV Ejection Fraction MOD 2C 64.8 % LV Ejection Fraction 2C AL 63.9 % LA Diameter 2.6 cm LA Width 3.2 cm LA Height 3.5 cm RA Width 2.2 cm RA Height 4.0 cm M-MODE LV Diastolic Diameter MM 4.6 cm 4.2 - 5.9 / 3.9 - 5.3 cm LV Systolic Diameter MM 3.4 cm LV Ejection Fraction MM Teich 53.6 % IVS Diastolic Thickness MM 0.7 cm 0.6 - 1.0 / 0.6 - 0.9 cm IVS Systolic Thickness MM 0.7 cm LVPW Diastolic Thickness MM 0.8 cm 0.6 - 1.0 / 0.6 - 0.9 cm LVPW Systolic Thickness MM 1.0 cm Aortic Annulus Diameter 2.3 cm LA Ao Ratio MM 1.1 MV E Point Septal Separation 0.7 cm DOPPLER AV Peak Velocity 114.0 cm/s LVOT Peak Velocity 108.0 cm/s AV Area Cont Eq vti 2.9 cm squared AV Area Cont Eq pk 3.0 cm squared MV Peak Velocity 106.0 cm/s MV Area PHT 3.1 cm squared Mitral E to A Ratio 1.8 MV E' Velocity 20.0 cm/s Mitral E to MV E' Ratio 5.9 Mitral E to LV E' Lateral Ratio 4.8 Mitral E to LV E' Septal Ratio 7.7 TR Peak Velocity 171.0 cm/s TR Peak Gradient 11.8 mmHg Right Atrial Pressure 3.0 mmHg Pulmonary Artery Systolic Pressu 14.7 mmHg PV Peak Velocity 112.0 cm/s RV Acceleration Time 0.1 s FINDINGS Left Ventricle Normal left ventricular size, systolic function and wall thickness, with no regional wall motion abnormalities. Left ventricular ejection fraction is estimated at 68 %. Normal diastolic function. Right Ventricle Normal right ventricular size and systolic function. Right ventricular systolic pressure 14.7 mmHg. Right Atrium Normal right atrial size. Right atrial pressure estimated at 3 mmHg. No evidence of atrial septal defect or patent foramen ovale based on the study. Left Atrium Normal left atrial size. Mitral Valve Structurally normal mitral valve. No mitral valve stenosis. Trace mitral valve regurgitation. Aortic Valve Structurally normal trileaflet aortic valve. No aortic valve stenosis. No aortic valve regurgitation. Tricuspid Valve Structurally normal tricuspid valve. No tricuspid valve stenosis. Trace tricuspid valve regurgitation. Pulmonic Valve Structurally normal pulmonic valve. No pulmonary valve stenosis. Trace pulmonary valve regurgitation. Pericardium No pericardial effusion. Aorta Normal size aortic root and proximal ascending aorta. CONCLUSIONS 1. Normal left ventricular size, systolic function and wall thickness, with no regional wall motion abnormalities. Left ventricular ejection fraction is estimated at 68 %. Normal diastolic function. 2. Normal right ventricular size and systolic function. 3. No significant valvular abnormality. 4. Normal pulmonary artery pressure. 5. No evidence of atrial septal defect or patent foramen ovale based on the study. 6. No prior similar studies to compare. Nikki Zelaya MD (Electronically Signed) Final Date: 18 November 2019 14:31 S
== END 2019-11-18 09:22 | disposition home or self-care (01) ==
LOC: RAD 09:25
PROVIDERS: Family Provider Family Medicine; PCP Family Medicine; Visit Provider Internal Medicine Cardiovascular Disease
DX: I08.1 Rheumatic disorders of both mitral and tricuspid valves (principal); R06.02 Shortness of breath; R00.0 Tachycardia, unspecified
CPT/HCPCS: 93306

== ENCOUNTER 2019-11-19 02:25 | Emergency (ER) | payer MEDICAID, SELFPAY ==
[2019-11-19 02:26] VITALS: BP 157/111; PULSE 104; RESP 16; TEMP 36.8; O2SAT 105; BMI 28.3
--- NOTE | 2019-11-19 02:39 | ECG_ITS ---
Measurements Intervals [place] Rate: 89 P: 34 OR: 157 QRS: 8 QRSD: 89 T: 22 QT: 354 QTc: 432 SINUS RHYTHM Compared to ECG 11/15/2019 05:55:41 Sinus tachycardia no longer present Electronically Signed On 11-19-2019 13:21:15 ATTENDING PSYCHIATRIST by Nikki Zelaya M.D. [id number]
--- NOTE | 2019-11-19 02:44 | ED_ITS ---
Entered by Matilde Murdock, acting as scribe for Dequan Acuña MD Nov 19, 2019 02:25 HPI - Anxiety General: Chief Complaint: Anxiety Stated Complaint: JAW PAIN Time Seen by Provider: 11/19/19 02:39 Source: patient and EMS Mode of arrival: EMS History of Present Illness: HPI narrative: 29 y/o female presents to the ED with complaint of anxiety. She has been seen 10+ times for similar problems. Pt states she had an episode of jaw pain and did not know what to do so she panicked. She states she hasnt taken iburophen because she doesnt want to be asle complaint: anxiety Associated symptoms: Deny chest pain, chills, fever(s), headache(s), nausea or vomiting Review of Systems Const: Denies: fever, chills, body aches or change in appetite Eyes: Denies: blurry vision or eye discomfort ENMT: Denies: throat pain or dental pain Card: Denies: chest pain Resp: Denies: shortness of breath GI: Denies: abdominal pain, nausea, vomiting or diarrhea : Denies: painful urination Musc: Denies: neck pain or back pain Skin/Breast: Denies: rash Neuro: Denies: headache Psych: Denies: depression Sang/Lymph: Denies: easy bruising All/Imm: Denies: hives [facility] ED PFSH: Social History Smoking and tobacco status: never smoked Female Reproductive History: Date of last menstrual period: 10/23/19 Physical Exam Const: COMMON NORMALS: no apparent distress, oriented x3 and healthy appearing HENMT: COMMON NORMALS: normocephalic and head/scalp atraumatic HEAD & SCALP: normocephalic and atraumatic Eye: COMMON NORMALS: PERRL and EOMs intact bilaterally PUPIL: Yes PERRL Neck/C-Spine: COMMON NORMALS: full ROM and supple Chest: COMMONS NORMALS: inspection of chest normal and palpation of chest normal Resp: COMMON NORMALS: normal respiratory effort, no retractions, no use of accessory muscles and clear to auscultation bilaterally AUSCULTATION: clear to auscultation bilaterally Cardio: COMMON NORMALS: regular rate, regular rhythm and no murmurs RATE: regular rate RHYTHM: regular rhythm GI: COMMON NORMALS: normal to inspection, nondistended, normoactive bowel sounds, soft to palpation, non-tender and no masses PALPATION: Yes soft Extremity: COMMON NORMALS: normal to inspection and full ROM Neuro: COMMON NORMALS: oriented x3, moves all extremities and no focal motor deficits Psych: COMMON NORMALS: mental status grossly normal, thought process normal and cooperative THOUGHT PROCESS: normal thought process Skin: COMMON NORMALS: no rashes or lesions noted and no wounds GENERAL SKIN EXAM: no rashes or lesions noted Course Vital Signs: Vital signs: Vital Signs Temperature 98.2 F 11/19/19 02:26 Pulse Rate 87 11/19/19 02:55 Respiratory Rate 18 11/19/19 02:55 Blood Pressure 133/88 11/19/19 02:55 Pulse Oximetry 99 11/19/19 02:55 MDM - Anxiety MDM Narrative: Medical decision making narrative: Patient presents here with jaw pain along with chest pain that is chronic in nature. She is well-appearing here and EKG is normal. Patient's dental exam is normal. She is stable for discharge at this time. EKG Data^: EKG 1: Attestation: I personally reviewed and interpreted this EKG as follows: EKG interpretation date: 11/19/19 EKG interpretation time: 02:52 Interpretation: nsr hr [address] or t wave abnormalities qrs 89 qtc 401 Discharge Plan Discharge Patient Disposition: Home, Self-Care Clinical Impression: TMJ arthralgia Qualifiers: Laterality: right Qualified Code(s): M26.621 - Arthralgia of right temporomandibular joint Condition: Stable Prescriptions: No Action naproxen sodium 220 mg capsule 500 mg PO BID PRN (Reason: Pain) RF: 0 melatonin 10 mg capsule 3 mg PO BEDTIME RF: 0 diphenhydramine HCl [NightTime Sleep Aid (diphen)] 25 mg capsule 25 mg PO DAILY PRN (Reason: Sleep) RF: 0 metoprolol succinate 25 mg Tablet Extended Release 24 Hr 12.5 mg PO BID RF: 0 Trintellix 10 mg Tablet 10 mg PO DAILY RF: 0 aspirin 325 mg Tablet 325 mg PO DAILY RF: 0 Advil 1 tab PO PRN RF: 0 trazodone 50 mg Tablet 50 mg PO BEDTIME RF: 0 famotidine 20 mg Tablet 20 mg PO BEDTIME RF: 0 aripiprazole 5 mg Tablet 5 mg PO DAILY RF: 0 Discharge Orders: Discharge Order (Routine); Ordered 11/19/19 Ordered By: Dequan Acuña Referrals: Emory Fuentes MD [Primary Care Provider] - 1-3 days Discharge Diet: Advance as tolerated Discharge Activity: Resume usual activity Patient Instructions: Temporomandibular Disorder (ED) Discharge Date/Time: 11/19/19 02:55 Coding Level of Care Code ED Die Set Up Worker for Chg Fwd Exam Comprehensive The documentation recorded by the Mathieu short Ashley, accurately reflects the service I personally performed and the decisions made by Domenico dill Korby, MD Nov 19, 2019 02:25
[2019-11-19] MEDS: naproxen 500 mg Tablet PO (02:52)
[2019-11-19 02:55] VITALS: BP 133/88; PULSE 87; RESP 18; O2SAT 99
--- NOTE | 2019-11-22 10:51 | DCPLANNER ---
property claims manager called patient due to multiple visits called [phone], no voicemail set up and unable to speak with patient at this time.
== END 2019-11-19 02:55 | disposition home or self-care (01) ==
PROVIDERS: Emergency Provider Emergency Medicine; Family Provider Family Medicine; PCP Family Medicine
DX: M26.629 Arthralgia of temporomandibular joint, unspecified side (principal)
CPT/HCPCS: 93005; 99281; 99283

== ENCOUNTER 2019-11-20 05:19 | Emergency (ER) | payer MEDICAID, SELFPAY ==
[2019-11-20 05:21] VITALS: BP 136/87; PULSE 77; RESP 16; TEMP 37.2; O2SAT 96; BMI 28.3
--- NOTE | 2019-11-20 05:28 | ED_ITS ---
HPI - Dental/Oral General: Chief complaint: Dental/Oral Stated complaint: JAW/CP Time Seen by Provider: 11/20/19 05:20 History of Present Illness: HPI Narrative: 29 yo female who is been here multiple times recently. Chart was reviewed. This is her third visit in 3 days. She was actually here just 3 hours ago by ambulance as well. She returned by ambulance this morning because she states her jaw is still hurting. She has TMJ which she was previously on Naprosyn and now she is on diclofenac. She says she does have an appointment scheduled with the dentist later this month told me she was seeing someone on November 24. She had previously seen Dr. Fuentes and was for started on Naprosyn and then changed to diclofenac she is taken 1 dose of diclofenac. When seen today she is awake and alert and oriented she denies any fever denies any teeth pain she was previously on antibiotics was completed those. She does not have any swelling in her jaw she does have pain bilaterally in the TMJ joints. No chest pain or palpitations. She is on currently on metoprolol low-dose for palpitations with anxiety issues. Associated symptoms: Denies ear or mastoid pain or fever(s) Review of Systems Const: Denies: fever, chills, body aches, change in appetite, fatigue or malaise ENMT: Denies: throat pain, ear pain, nasal discharge or nasal congestion Card: Denies: chest pain, edema, shortness of breath on exertion or shortness of breath when lying down Resp: Denies: shortness of breath, productive cough or non-productive cough GI: Denies: abdominal pain, nausea, vomiting, vomiting blood, coffee grounds in vomit, diarrhea, constipation, bloating, blood in stool or black tarry stool : Denies: flank pain, difficulty urinating, painful urination, urinary frequency or urinary urgency Skin/Breast: Denies: rash or itching [facility] ED PFSH: Social History Smoking and tobacco status: never smoked Female Reproductive History: Date of last menstrual period: 10/23/19 Physical Exam Const: COMMON NORMALS: no apparent distress GENERAL APPEARANCE: cooperative and comfortable ORIENTATION/CONSCIOUSNESS: Yes awake, Yes oriented to person, Yes oriented to place and Yes oriented to time HENMT: COMMON NORMALS: normocephalic, head/scalp atraumatic, hearing grossly normal bilaterally, external ears normal, EAC's normal, TM's normal bilaterally, nasal mucous membranes and turbinates normal, moist oral mucous membranes and oropharynx normal HEAD & SCALP: normocephalic and atraumatic NOSE: nasal mucous membranes and turbinates normal EXTERNAL EAR: Yes external ears normal EXTERNAL AUDITORY CANAL: EAC's normal TYMPANIC MEMBRANE: TM's normal bilaterally OTHER: Multiple dental caries third molar on the mandible is significantly decayed large portion missing. She also has similar poor dentition on the upper right molars. There is no evidence of abscess no gumline swelling no drainage. No pain with palpation along the jaw line there is no submandibular cervical lymphadenopathy. Eye: COMMON NORMALS: PERRL, EOMs intact bilaterally, conjunctivae normal and no scleral icterus CONJUNCTIVA: Yes conjunctivae normal PUPIL: Yes PERRL Neck/C-Spine: COMMON NORMALS: full ROM, no lymphadenopathy, supple and no JVD Lymph: LYMPHATIC: no lymphadenopathy noted and no lymphedema noted Resp: COMMON NORMALS: normal respiratory effort, no retractions, no use of accessory muscles and clear to auscultation bilaterally AUSCULTATION: clear to auscultation bilaterally Cardio: COMMON NORMALS: no JVD, regular rate, regular rhythm and no murmurs RATE: regular rate RHYTHM: regular rhythm GI: COMMON NORMALS: soft to palpation and no hepatosplenomegaly AUSCULTATION: Yes normoactive bowel sounds PALPATION: Yes soft, No tender, No guarding and Yes no hepatosplenomegaly Extremity: COMMON NORMALS: normal to inspection, normal capillary refill, no clubbing, cyanosis or edema, no calf tenderness and no pedal edema Neuro: SENSORIUM/ORIENTATION: Yes oriented to person, Yes oriented to place and Yes oriented to time Skin: COMMON NORMALS: no rashes or lesions noted GENERAL SKIN EXAM: no rashes or lesions noted Course ED course: At this point I do not believe there is any emergent condition present. She does have some TMJ pain however I do not know that there is a lot more that we can do for her at this time. I think the diclofenac is appropriate she should continue her trial of that as prescribed by her primary care provider. She does not have any evidence of active dental infection at this time although she does have extremely poor dentition. Recommend that she keep her appointment with her dentist as planned I would recommend that she follow-up with her primary care doctor. Another option would be for her to see ENT or oral maxillofacial surgery which she can be referred to by her primary care doctor. Vital Signs: Vital signs: Vital Signs Temperature 98.9 F 11/20/19 05:21 Pulse Rate 77 11/20/19 05:21 Respiratory Rate 16 11/20/19 05:21 Blood Pressure 136/87 11/20/19 05:21 Pulse Oximetry 96 11/20/19 05:21 Discharge Plan Discharge Patient Disposition: Home, Self-Care Clinical Impression: TMJ arthralgia, Anxiety Condition: Stable Prescriptions: Discontinued naproxen sodium 220 mg capsule 500 mg PO BID PRN (Reason: Pain) RF: 0 Advil 1 tab PO PRN RF: 0 No Action melatonin 10 mg capsule 3 mg PO BEDTIME RF: 0 diphenhydramine HCl [NightTime Sleep Aid (diphen)] 25 mg capsule 25 mg PO DAILY PRN (Reason: Sleep) RF: 0 metoprolol succinate 25 mg Tablet Extended Release 24 Hr 12.5 mg PO BID RF: 0 Trintellix 10 mg Tablet 10 mg PO DAILY RF: 0 aspirin 325 mg Tablet 325 mg PO DAILY RF: 0 trazodone 50 mg Tablet 50 mg PO BEDTIME RF: 0 famotidine 20 mg Tablet 20 mg PO BEDTIME RF: 0 aripiprazole 5 mg Tablet 5 mg PO DAILY RF: 0 Discharge Orders: Discharge Order (Routine); Ordered 11/20/19 Ordered By: Dima Encinas Referrals: Emory Fuentes MD [Primary Care Provider] - Discharge Diet: Soft Mechanical Discharge Activity: Resume usual activity Activity Restrictions/Additional Instructions: Continue to use the diclofenac that Dr. Fuentes has previously prescribed you. You may take 1 every 12 hours, you may supplement that with Tylenol [id number] as per label directions. Recommend that you keep your follow- up with dentist as scheduled. Discharge Date/Time: 11/20/19 05:46 Coding Level of Care Code ED Vulcanized Fiber Unit Operator for Serina Fwkendrick Exam Comprehensive
--- NOTE | 2019-11-22 10:52 | DCPLANNER ---
foundation relations manager called patient due to multiple visits called [phone], no voicemail set up and unable to speak with patient at this time.
== END 2019-11-20 05:46 | disposition home or self-care (01) ==
PROVIDERS: Emergency Provider Family Medicine; Family Provider Family Medicine; PCP Family Medicine
DX: M26.623 Arthralgia of bilateral temporomandibular joint (principal); F41.9 Anxiety disorder, unspecified
CPT/HCPCS: 99281

== ENCOUNTER 2019-11-22 21:49 | Emergency (ER) | payer MEDICAID, SELFPAY ==
[2019-11-22 21:50] VITALS: BP 137/102; PULSE 88; RESP 16; TEMP 36.6; O2SAT 100; BMI 28.3
--- NOTE | 2019-11-22 21:50 | ED_ITS ---
Entered by Jordyn Randhawa, acting as scribe for Sarah Day HPI - Anxiety General: Chief Complaint: Anxiety Stated Complaint: anxiety Time Seen by Provider: 11/22/19 21:51 Source: patient Mode of arrival: EMS Limitations: no limitations History of Present Illness: HPI narrative: 29 yo f came to the er by [facility] for anxiety. Onset was tonight. Pt states that she is not wanting to kill herself or to kill anyone else. Pt states that she is just really stressed out. 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) Severity: mild Quality: intermittent Place: home History of similar episodes: Yes Provoking factors: emotional stress Relieving factors: nothing Exacerbating factors: nothing Associated symptoms: Reports no associated symptoms; Deny chest pain, chills, confusion, diaphoresis, fever(s), headache(s), malaise, nausea, palpitations, syncope or vomiting Review of Systems General: Reports: other (negative unless marked) Const: Denies: fever, chills, body aches, fatigue, malaise or diaphoresis Eyes: Denies: change in vision or blurry vision ENMT: Denies: throat pain, painful swallowing, hoarseness, ear pain, ear discharge, Change in hearing or nasal discharge Card: Denies: chest pain, palpitations, irregular heart rhythm, syncope, pre- syncope, shortness of breath on exertion or shortness of breath when lying down Resp: Denies: shortness of breath, productive cough, non-productive cough, wheezing, coughing up blood or chest congestion GI: Denies: abdominal pain, nausea, vomiting, vomiting blood, coffee grounds in vomit, diarrhea, constipation, cramping, blood in stool or black tarry stool : Denies: flank pain, painful urination, urinary frequency, urinary urgency, decreased urine ouput, urinary incontinence or blood in urine Musc: Denies: neck pain, back pain, extremity pain, extremity swelling, joint pain, joint swelling, joint warmth or joint stiffness Skin/Breast: Denies: rash, skin tenderness or yellow skin Neuro: Denies: headache, numbness in extremities, weakness in extremities, changes in sensation, lack of coordination, difficulty walking, dizziness, vertigo or confusion Endo: Denies: excessive thirst, tired all the time, cold intolerance, excessive sweating, flushing or hot flashes Sang/Lymph: Denies: easy bruising, easy bleeding, petechiae or enlarged lymph nodes All/Imm: Denies: hives, throat swelling, tongue swelling, facial swelling or acute wheezing PFSH ED PFSH: Social History Smoking and tobacco status: former smoker Female Reproductive History: Date of last menstrual period: 10/23/19 Physical Exam Const: COMMON NORMALS: no apparent distress, oriented x3, no limitations, healthy appearing and well nourished EXAM LIMITATIONS: no altered mental status GENERAL APPEARANCE: cooperative, well kempt and well developed ORIENTATION/CONSCIOUSNESS: Yes awake HENMT: COMMON NORMALS: normocephalic, head/scalp atraumatic, hearing grossly normal bilaterally, external ears normal, EAC's normal, external nose normal and moist oral mucous membranes HEAD & SCALP: normal to inspection, normocephalic and atraumatic FACE & SINUS: normal facial exam and face symmetric NOSE: external nose normal and nares normal EXTERNAL EAR: Yes external ears normal EXTERNAL AUDITORY CANAL: EAC's normal MOUTH: oral and palatal mucosa normal and tongue normal Eye: COMMON NORMALS: PERRL, EOMs intact bilaterally, conjunctivae normal and no scleral icterus GENERAL EYE: normal appearance of both eyes and normal light reflex CONJUNCTIVA: Yes conjunctivae normal SCLERA: sclerae normal CORNEA: Yes corneas normal PUPIL: Yes PERRL DIRECT OPHTHALMOSCOPY: Yes normal light reflex Neck/C-Spine: COMMON NORMALS: full ROM, no lymphadenopathy, supple, no meningeal signs and no JVD GENERAL: Yes normal visual inspection and Yes trachea midline CERVICAL SPINE: Yes cervical ROM normal Chest: COMMONS NORMALS: inspection of chest normal and palpation of chest normal Resp: COMMON NORMALS: normal respiratory effort, no retractions, no use of accessory muscles and clear to auscultation bilaterally EFFORT & INSPECTION: Yes able to speak in complete sentences AUSCULTATION: clear to auscultation bilaterally Cardio: COMMON NORMALS: no JVD, regular rate, regular rhythm, S1 normal heart sound, S2 normal heart sound, no gallops, no clicks, no murmurs and no rub JUGULAR VENOUS DISTENTION: no JVD RATE: regular rate RHYTHM: regular rhythm HEART SOUNDS: S1 normal and S2 normal GI: COMMON NORMALS: soft to palpation, non-tender, no hepatosplenomegaly and no masses INSPECTION: Yes normal to inspection PALPATION: Yes soft and Yes no hepatosplenomegaly : COMMON NORMALS: Yes no CVA tenderness BLADDER/KIDNEY EXAM: Yes no CVA tenderness Back/Pelvis: COMMON NORMALS: no CVA tenderness, thoracic and lumbar spine normal to inspection, no thoracic nor lumbar tenderness and thoraco-lumbar ROM normal Extremity: COMMON NORMALS: normal to inspection, full ROM, normal capillary refill, no joint enlargement, no clubbing, cyanosis or edema and no calf tenderness Neuro: COMMON NORMALS: oriented x3, CN's II-XII intact bilaterally, moves all extremities, no focal motor deficits and no sensory deficits noted MENINGEAL SIGNS: Yes no meningeal signs Psych: COMMON NORMALS: mental status grossly normal, thought process normal, cooperative, affect normal, speech normal and activity/motor behavior normal APPEARANCE: Yes well kempt SPEECH: Yes normal speech THOUGHT PROCESS: normal thought process Skin: COMMON NORMALS: no rashes or lesions noted, skin turgor normal, no jaundice, no petechiae and no mottling GENERAL SKIN EXAM: no rashes or lesions noted and turgor normal Course Vital Signs: Vital signs: Vital Signs Temperature 97.8 F 11/22/19 21:50 Pulse Rate 88 11/22/19 21:50 Respiratory Rate 16 11/22/19 21:50 Blood Pressure 137/102 11/22/19 21:50 Pulse Oximetry 100 11/22/19 21:50 MDM - Anxiety MDM Narrative: Medical decision making narrative: Patient is adamant she is not homicidal or suicidal. She just wants something for her anxiety attack. 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 I will dispense an Ativan home with her with instructions to take it when she gets home. She agrees with this plan. She agrees to return should her symptoms sukhdev nge or worsen but at this time she is not suicidal or homicidal I will discharge her home with treatment for her anxiety attack. Discharge Plan Discharge Patient Disposition: Home, Self-Care Clinical Impression: Acute anxiety Condition: Stable Prescriptions: No Action melatonin 10 mg capsule 3 mg PO BEDTIME RF: 0 diphenhydramine HCl [NightTime Sleep Aid (diphen)] 25 mg capsule 25 mg PO DAILY PRN (Reason: Sleep) RF: 0 metoprolol succinate 25 mg Tablet Extended Release 24 Hr 12.5 mg PO BID RF: 0 Trintellix 10 mg Tablet 10 mg PO DAILY RF: 0 aspirin 325 mg Tablet 325 mg PO DAILY RF: 0 trazodone 50 mg Tablet 50 mg PO BEDTIME RF: 0 famotidine 20 mg Tablet 20 mg PO BEDTIME RF: 0 aripiprazole 5 mg Tablet 5 mg PO DAILY RF: 0 Discharge Orders: Discharge Order (Routine); Ordered 11/22/19 Ordered By: Sarah Day Referrals: Emory Fuentes MD [Primary Care Provider] - 1-3 days Discharge Diet: Advance as tolerated Discharge Activity: Increase activity as tolerated Patient Instructions: Anxiety (ED), Panic Attack Activity Restrictions/Additional Instructions: Please return to the ER immediately for any of the signs or symptoms listed on your discharge instruction sheets, worsening/changing of your symptoms, you are not getting better as quickly as expected, or for ANY other cause or concerns. Please return to the ER if you develop thoughts of wanting to hurt yourself or anyone else. Coding Level of Care Code ED Senior Electronics Technician for Chg Fwd Exam Comprehensive The documentation recorded by the Edis short Stephanie Lyn, accurately reflects the service I personally performed and the decisions made by , Sarah Day
[2019-11-22] MEDS: LORazepam 1 mg Tablet PO (21:58)
--- NOTE | 2019-11-26 13:56 | DCPLANNER ---
manager merchandising called patient due to multiple visits, unable to reach patient at this time, and unable to leave a voicemail at this time. Patients voicemail is not set up.
== END 2019-11-22 22:01 | disposition home or self-care (01) ==
PROVIDERS: Emergency Provider Emergency Medicine; Family Provider Family Medicine; PCP Family Medicine
DX: F41.9 Anxiety disorder, unspecified (principal)
CPT/HCPCS: 12345; 99281; 99283

== ENCOUNTER 2019-11-24 22:51 | Emergency (ER) | payer MEDICAID, SELFPAY ==
[2019-11-24 22:53] VITALS: BP 141/99; PULSE 91; RESP 16; TEMP 36.9; O2SAT 100; BMI 28.3
--- NOTE | 2019-11-24 23:01 | ECG_ITS ---
Measurements Intervals [place] Rate: 87 P: 19 CO: 144 QRS: 5 QRSD: 88 T: 22 QT: 341 QTc: 412 SINUS RHYTHM Compared to ECG 11/19/2019 02:52:27 No significant changes Electronically Signed On 11-25-2019 20:47:30 CDT by Anders Hardy M.D. [email or web address]
--- NOTE | 2019-11-24 23:04 | ED_ITS ---
Entered by Jordyn Randhawa, acting as scribe for Ángel Allen DO HPI - Chest Pain General: Chief Complaint: Chest Pain Stated Complaint: CHEST PAIN Time Seen by Provider: 11/24/19 23:01 Source: patient Mode of arrival: EMS Limitations: no limitations History of Present Illness: HPI narrative: 29 yo f came to the er by [facility] for chest pain. Onset was today. Pt states that she thinks that she is having some anxiety attacks. She said that she has had an echo done and that she was a little tachy and she may have svt as well, but has not got the results back yet. Pt does have a cough. MD complaint: chest pain Onset (ago): day(s) (today) Onset: during rest Pain location: substernal Severity: mild Quality: aching and sharp Relieving factors: nothing Exacerbating factors: nothing Context: recent illness Associated symptoms: Reports dyspnea and palpitations; Deny abdominal pain, fever(s), nausea or vomiting Review of Systems Const: Denies: fever or chills Eyes: Denies: change in vision or blurry vision ENMT: Denies: post nasal drip or facial/sinus pain Card: Reports: chest pain, palpitations and edema; Denies: swelling of feet/ankles Resp: Reports: shortness of breath and non-productive cough; Denies: productive cough or wheezing GI: Denies: abdominal pain, nausea or vomiting : Denies: painful urination Musc: Denies: neck pain or back pain Skin/Breast: Denies: redness Neuro: Denies: headache or dizziness Psych: Denies: anxiety PFSH ED PFSH: Social History Smoking and tobacco status: never smoked Female Reproductive History: Date of last menstrual period: 10/23/19 Physical Exam Const: GENERAL APPEARANCE: well developed ORIENTATION/CONSCIOUSNESS: Yes oriented to person, Yes oriented to place and Yes oriented to time HENMT: FACE & SINUS: normal facial exam NOSE: no nasal discharge MOUTH: tongue normal THROAT: posterior oropharynx normal; no peritonsillar mass Eye: COMMON NORMALS: PERRL, EOMs intact bilaterally and conjunctivae normal EYELID: eyelids normal CONJUNCTIVA: Yes conjunctivae normal PUPIL: Yes PERRL Neck/C-Spine: GENERAL: No tracheal deviation Chest: COMMONS NORMALS: inspection of chest normal CHEST: No tenderness Resp: COMMON NORMALS: clear to auscultation bilaterally EFFORT & INSPECTION: No tachypneic, No respiratory distress, No retractions, No uses accessory muscles and No tracheal deviation AUSCULTATION: clear to auscultation bilaterally, no rhonchi, no wheezes and lung sounds not diminished Cardio: COMMON NORMALS: regular rate and regular rhythm RATE: regular rate RHYTHM: regular rhythm HEART SOUNDS: no murmurs PERIPHERAL PULSES: radial pulses present GI: INSPECTION: No abdominal distension AUSCULTATION: No hyperactive bowel sounds and No hypoactive bowel sounds PALPATION: No guarding and No rigid PERCUSSION: no dullness to percussion and no tympanic to percussion Neuro: SENSORIUM/ORIENTATION: Yes oriented to person, Yes oriented to place and Yes oriented to time Psych: COMMON NORMALS: mental status grossly normal Skin: COMMON NORMALS: no rashes or lesions noted GENERAL SKIN EXAM: no rashes or lesions noted Course Vital Signs: Vital signs: Vital Signs Temperature 98.4 F 11/24/19 22:53 Pulse Rate 76 11/25/19 00:43 Respiratory Rate 14 11/25/19 00:43 Blood Pressure 102/65 11/25/19 00:43 Pulse Oximetry 98 11/25/19 00:43 MDM - Chest Pain MDM Narrative: Medical decision making narrative: 29-year-old female, frequent visitor to the ER, presents with chest discomfort. She says it is resolved now. She says it may have been an anxiety attack. Her EKG is normal, with no ST changes. We looked at her echo from a few days ago, which is normal as well. She had labs drawn 2 days ago. I do not see a reason to repeat them, as her symptoms are the same. She will be discharged Discharge Plan Discharge Patient Disposition: Home, Self-Care Clinical Impression: Acute anxiety Chest pain Qualifiers: Chest pain type: unspecified Qualified Code(s): R07.9 - Chest pain, unspecified Condition: Stable Prescriptions: No Action melatonin 10 mg capsule 3 mg PO BEDTIME RF: 0 diphenhydramine HCl [NightTime Sleep Aid (diphen)] 25 mg capsule 25 mg PO DAILY PRN (Reason: Sleep) RF: 0 metoprolol succinate 25 mg Tablet Extended Release 24 Hr 12.5 mg PO BID RF: 0 Trintellix 10 mg Tablet 10 mg PO DAILY RF: 0 aspirin 325 mg Tablet 325 mg PO DAILY RF: 0 trazodone 50 mg Tablet 50 mg PO BEDTIME RF: 0 famotidine 20 mg Tablet 20 mg PO BEDTIME RF: 0 aripiprazole 5 mg Tablet 5 mg PO DAILY RF: 0 Discharge Orders: Discharge Order (Routine); Ordered 11/25/19 Ordered By: Ángel Allen Referrals: Emory Fuentes MD [Primary Care Provider] - Discharge Diet: Usual diet Discharge Activity: Increase activity as tolerated Patient Instructions: Chest Pain (ED), Anxiety (ED) Discharge Date/Time: 11/25/19 00:55 Coding Level of Care Code ED Communications Department Chair for g Fwd The documentation recorded by the Edis short Stephanie Lyn, accurately reflects the service I personally performed and the decisions made by Alejandro dill Jeremy John, DO Nov 24, 2019 22:51
[2019-11-25] MEDS: LORazepam 1 mg Tablet 1.5 MG PO (00:39)
[2019-11-25 00:43] VITALS: BP 102/65; PULSE 76; RESP 14; O2SAT 98
--- NOTE | 2019-11-26 13:57 | DCPLANNER ---
logistics operations manager called patient due to multiple visits. logistics operations manager unable to speak with patient at this time, and unable to leave a voicemail for patient.
== END 2019-11-25 00:55 | disposition home or self-care (01) ==
PROVIDERS: Emergency Provider Emergency Medicine; Family Provider Family Medicine; PCP Family Medicine
DX: F41.9 Anxiety disorder, unspecified (principal); R07.9 Chest pain, unspecified
CPT/HCPCS: 12345; 93005; 99282; 99283

== ENCOUNTER 2019-11-26 18:40 | Emergency (ER) | payer MEDICAID, SELFPAY ==
[2019-11-26 19:00] VITALS: BP 132/89; PULSE 120; RESP 16; TEMP 37.2; O2SAT 99; BMI 28.3
--- NOTE | 2019-11-26 19:51 | ED_ITS ---
HPI - Dental/Oral General: Chief complaint: Dental/Oral Stated complaint: TOOTH EXTRATION THIS MORNING Time Seen by Provider: 11/26/19 19:42 Source: patient Mode of arrival: EMS Limitations: no limitations History of Present Illness: HPI Narrative: 29-year-old female who had her right lower wisdom tooth pulled today. She states she has had some nausea since then and increasing pain. She denies any worsening or improving factors. She denies any difficulty swallowing. MD Complaint: tooth pain Location: Tooth # (2) Onset (ago): hour(s) Duration: constant Severity: moderate Relieving factors: nothing Exacerbating factors: nothing Associated symptoms: Denies fever(s) Review of Systems Const: Denies: fever, chills, body aches or change in appetite Eyes: Denies: blurry vision or eye discomfort ENMT: Reports: dental pain; Denies: throat pain Card: Denies: chest pain Resp: Denies: shortness of breath GI: Denies: abdominal pain, nausea, vomiting or diarrhea : Denies: painful urination Musc: Denies: neck pain or back pain Skin/Breast: Denies: rash Neuro: Denies: headache Psych: Denies: depression Sang/Lymph: Denies: easy bruising All/Imm: Denies: hives PFS ED PFSH: Social History Smoking and tobacco status: current every day smoker Female Reproductive History: Date of last menstrual period: 10/23/19 Physical Exam Const: COMMON NORMALS: no apparent distress, oriented x3 and healthy appearing HENMT: COMMON NORMALS: normocephalic and head/scalp atraumatic HEAD & SCALP: normocephalic and atraumatic OTHER: Recently extracted right lower wisdom tooth that is well-appearing currently. No trismus. Eye: COMMON NORMALS: PERRL and EOMs intact bilaterally PUPIL: Yes PERRL Neck/C-Spine: COMMON NORMALS: full ROM and supple Chest: COMMONS NORMALS: inspection of chest normal and palpation of chest normal Resp: COMMON NORMALS: normal respiratory effort, no retractions, no use of accessory muscles and clear to auscultation bilaterally AUSCULTATION: clear to auscultation bilaterally Cardio: COMMON NORMALS: regular rate, regular rhythm and no murmurs RATE: regular rate RHYTHM: regular rhythm GI: COMMON NORMALS: normal to inspection, nondistended, normoactive bowel sounds, soft to palpation, non-tender and no masses PALPATION: Yes soft Extremity: COMMON NORMALS: normal to inspection and full ROM Neuro: COMMON NORMALS: oriented x3, moves all extremities and no focal motor deficits Psych: COMMON NORMALS: mental status grossly normal, thought process normal and cooperative THOUGHT PROCESS: normal thought process Skin: COMMON NORMALS: no rashes or lesions noted and no wounds GENERAL SKIN EXAM: no rashes or lesions noted Course Vital Signs: Vital signs: Vital Signs Temperature 99.0 F 11/26/19 19:00 Pulse Rate 120 H 11/26/19 19:00 Respiratory Rate 16 11/26/19 19:00 Blood Pressure 132/89 11/26/19 19:00 Pulse Oximetry 99 11/26/19 19:00 MDM - Dental/Oral MDM Narrative: Medical decision making narrative: Patient presents here with dental pain from a tooth extraction. Will prescribe her Naprosyn along with Zofran. Patient is well-appearing here and is stable for discharge. Discharge Plan Discharge Patient Disposition: Home, Self-Care Clinical Impression: Toothache Condition: Stable Prescriptions: New Zofran 4 mg tablet 4 mg PO QID PRN (Reason: nausea and vomiting) Qty: 14 RF: 0 EC-Naprosyn 500 mg tablet,delayed release (DR/EC) 500 mg PO BID PRN (Reason: pain) Qty: 20 RF: 0 No Action melatonin 10 mg capsule 3 mg PO BEDTIME RF: 0 diphenhydramine HCl [NightTime Sleep Aid (diphen)] 25 mg capsule 25 mg PO DAILY PRN (Reason: Sleep) RF: 0 metoprolol succinate 25 mg Tablet Extended Release 24 Hr 12.5 mg PO BID RF: 0 Trintellix 10 mg Tablet 10 mg PO DAILY RF: 0 aspirin 325 mg Tablet 325 mg PO DAILY RF: 0 trazodone 50 mg Tablet 50 mg PO BEDTIME RF: 0 famotidine 20 mg Tablet 20 mg PO BEDTIME RF: 0 aripiprazole [Abilify] 5 mg Tablet 5 mg PO DAILY RF: 0 Discharge Orders: Discharge Order (Routine); Ordered 11/26/19 Ordered By: Dequan Acuña Referrals: Emory Fuentes MD [Primary Care Provider] - Discharge Diet: Advance as tolerated Discharge Activity: Resume usual activity Patient Instructions: Toothache (ED) Coding Level of Care Code ED Biology Research Assistant for Serina Chandler
[2019-11-26] MEDS: ondansetron 4 MG Tablet PO (19:58)
[2019-11-26] MEDS: naproxen 500 mg Tablet PO (19:58)
[2019-11-26 20:02] VITALS: PULSE 107; RESP 14; O2SAT 97
== END 2019-11-26 20:03 | disposition home or self-care (01) ==
PROVIDERS: Emergency Provider Emergency Medicine; Family Provider Family Medicine; PCP Family Medicine
DX: K08.89 Other specified disorders of teeth and supporting structures (principal); F17.200 Nicotine dependence, unspecified, uncomplicated
CPT/HCPCS: 12345; 99281; 99283; Q0162

== ENCOUNTER 2019-11-26 20:11 | Emergency (ER) | payer MEDICAID, SELFPAY ==
[2019-11-26 20:14] VITALS: BP 159/102; PULSE 141; RESP 16; TEMP 36.8; O2SAT 100; BMI 28.3
--- NOTE | 2019-11-26 20:33 | ED_ITS ---
HPI - Psych General: Chief Complaint: Psychiatric Symptoms Stated Complaint: asking to go to npu Time Seen by Provider: 11/26/19 20:15 Source: patient Mode of arrival: ambulatory Limitations: no limitations History of Present Illness: HPI Narrative: Patient is a 29-year-old female well-known to our ER and actually who was just discharged approximately 5 minutes ago for dental pain here currently wanting to be admitted to NPU. She tells me that she is tired of hearing her grandma and grandpa get onto her over various things and states when they do it causes her to become anxious. She has been seen here at our facility for similar symptoms. I have explained to her previously that anxiety does not meet criteria for inpatient hospitalization. Patient is not suicidal or homicidal. complaint: other (stress/anxiety ) Onset (ago): unknown (chronically ) Duration: intermittent Context: other (stressful living with grandparents) Associated symptoms: Reports no associated symptoms and depression; Deny auditory hallucinations, visual hallucinations, homicidal ideation or suicidal ideation Treatments prior to arrival: none Review of Systems Const: Denies: fever or chills Card: Denies: chest pain, palpitations, lightheadedness or syncope Resp: Denies: shortness of breath GI: Denies: abdominal pain, nausea, vomiting or diarrhea Skin/Breast: Denies: rash Neuro: Denies: headache Psych: Reports: anxiety and depression; Denies: visual hallucinations, auditory hallucinations, suicidal ideation or homicidal ideation [facility] ED PFSH: Social History Smoking and tobacco status: never smoked Female Reproductive History: Date of last menstrual period: 10/23/19 Physical Exam Const: COMMON NORMALS: no apparent distress, oriented x3, alert and well nour ished GENERAL APPEARANCE: cooperative and well kempt Resp: COMMON NORMALS: normal respiratory effort and clear to auscultation bilaterally AUSCULTATION: clear to auscultation bilaterally Cardio: COMMON NORMALS: regular rate and regular rhythm RATE: regular rate RHYTHM: regular rhythm Neuro: COMMON NORMALS: oriented x3 SENSORIUM/ORIENTATION: Yes alert Psych: COMMON NORMALS: mental status grossly normal, thought process normal, cooperative, affect normal, speech normal and activity/motor behavior normal APPEARANCE: Yes well kempt ACTIVITY/MOTOR BEHAVIOR: Yes appropriate eye contact and No psychomotor agitation SPEECH: Yes normal speech THOUGHT PROCESS: normal thought process THOUGHT CONTENT: Yes normal thought content ATTENTION/CONCENTRATION: Yes attention grossly intact and Yes concentration grossly intact MEMORY/COGNITION: Yes memory grossly intact and Yes cognition grossly intact INSIGHT: fair JUDGEMENT: judgment good Skin: COMMON NORMALS: no rashes or lesions noted GENERAL SKIN EXAM: no rashes or lesions noted Discharge Plan Discharge Patient Disposition: Home, Self-Care Clinical Impression: Stress at home Condition: Stable Prescriptions: No Action melatonin 10 mg capsule 3 mg PO BEDTIME RF: 0 diphenhydramine HCl [NightTime Sleep Aid (diphen)] 25 mg capsule 25 mg PO DAILY PRN (Reason: Sleep) RF: 0 metoprolol succinate 25 mg Tablet Extended Release 24 Hr 12.5 mg PO BID RF: 0 Trintellix 10 mg Tablet 10 mg PO DAILY RF: 0 aspirin 325 mg Tablet 325 mg PO DAILY RF: 0 trazodone 50 mg Tablet 50 mg PO BEDTIME RF: 0 famotidine 20 mg Tablet 20 mg PO BEDTIME RF: 0 aripiprazole [Abilify] 5 mg Tablet 5 mg PO DAILY RF: 0 Zofran 4 mg tablet 4 mg PO QID PRN (Reason: nausea and vomiting) Qty: 14 RF: 0 EC-Naprosyn 500 mg tablet,delayed release (DR/EC) 500 mg PO BID PRN (Reason: pain) Qty: 20 RF: 0 Discharge Orders: Discharge Order (Routine); Ordered 11/26/19 Ordered By: Ana Alanis Referrals: Emory Fuentes MD [Primary Care Provider] - Discharge Date/Time: 11/26/19 20:37 Coding Level of Care Code ED Biological Aide for Serina Chandler
[2019-11-26 20:36] VITALS: BP 122/86; PULSE 123; RESP 17; O2SAT 100
== END 2019-11-26 20:37 | disposition home or self-care (01) ==
PROVIDERS: Emergency Provider Physician Assistant; Family Provider Family Medicine; PCP Family Medicine
DX: Z73.3 Stress, not elsewhere classified (principal); Z63.8 Other specified problems related to primary support group
CPT/HCPCS: 12345; 99281

== ENCOUNTER 2019-11-27 00:31 | Emergency (ER) | payer MEDICAID, SELFPAY ==
--- NOTE | 2019-11-27 00:34 | XRR_ITS ---
PROCEDURE INFORMATION: Exam: XR Chest, 1 View Exam date and time: 11/27/2019 12:50 AM Age: 29 years old Clinical indication: Chest pain; Type not specified; Additional info: Chest pain w/ SOB TECHNIQUE: Imaging protocol: XR of the chest Views: 1 view. COMPARISON: CR XR chest 1V portable [id number] 11/12/2019 7:09 PM FINDINGS: Lungs: Unremarkable. No consolidation. Pleural space: Unremarkable. No pleural effusion. No pneumothorax. Heart/Mediastinum: Unremarkable. No cardiomegaly. Bones/joints: Unremarkable. XR/XR chest 1V portable [id number] IMPRESSION: No acute findings.
--- NOTE | 2019-11-27 00:34 | ECG_ITS ---
Measurements Intervals [place] Rate: 110 P: 25 NM: 135 QRS: -8 QRSD: 78 T: 8 QT: 323 QTc: 438 SINUS TACHYCARDIA MINIMAL VOLTAGE CRITERIA FOR LVH, CONSIDER NORMAL VARIANT [MEETS CRITERIA IN ONE OF: R(aVL), S(V1), R(V5), R(V5/V6)+S(V1)] POSSIBLE ANTERIOR MYOCARDIAL INFARCTION , OF INDETERMINATE AGE [30 ms Q WAVE IN V3/V4, OR R < 0.2 mV IN V4] Compared to ECG 11/24/2019 23:13:56 Myocardial infarct finding now present Sinus rhythm no longer present Electronically Signed On 11-27-2019 9:04:49 CDT by Erick Carlson M.D. [id number]
[2019-11-27 00:37] VITALS: BP 110/83; PULSE 106; RESP 18; TEMP 36.7; O2SAT 99; BMI 28.3
--- NOTE | 2019-11-27 00:45 | ED_ITS ---
HPI - Chest Pain General: Chief Complaint: Chest Pain Stated Complaint: cp Time Seen by Provider: 11/27/19 00:34 Source: patient Mode of arrival: ambulatory Limitations: no limitations History of Present Illness: HPI narrative: Kathi is a 29-year-old female who is very well-known to the ER. Patient was seen here earlier today and has been setting up in the waiting room states she started feeling funny and having some chest pain. This is since resolved. She denies any pain currently. She denies any shortness of breath. Denies any vomiting or diarrhea. complaint: chest pain Onset (ago): minute(s) Prior episodes: Yes Onset: during rest Severity: mild Associated symptoms: Deny abdominal pain, dyspnea, fever(s), nausea or vomiting Risk Factors: Coronary artery disease risk factors: none Review of Systems Const: Denies: fever, chills, body aches or change in appetite Eyes: Denies: blurry vision or eye discomfort ENMT: Denies: throat pain or dental pain Card: Reports: chest pain Resp: Denies: shortness of breath GI: Denies: abdominal pain, nausea, vomiting or diarrhea : Denies: painful urination Musc: Denies: neck pain or back pain Skin/Breast: Denies: rash Neuro: Denies: headache Psych: Denies: depression Sang/Lymph: Denies: easy bruising All/Imm: Denies: hives PFSH ED PFSH: Social History Smoking and tobacco status: never smoked Female Reproductive History: Date of last menstrual period: 10/23/19 Physical Exam Const: COMMON NORMALS: no apparent distress, oriented x3 and healthy appearing HENMT: COMMON NORMALS: normocephalic and head/scalp atraumatic HEAD & SCALP: normocephalic and atraumatic Eye: COMMON NORMALS: PERRL and EOMs intact bilaterally PUPIL: Yes PERRL Neck/C-Spine: COMMON NORMALS: full ROM and supple Chest: COMMONS NORMALS: inspection of chest normal and palpation of chest normal Resp: COMMON NORMALS: normal respiratory effort, no retractions, no use of accessory muscles and clear to auscultation bilaterally AUSCULTATION: clear to auscultation bilaterally Cardio: COMMON NORMALS: regular rate, regular rhythm and no murmurs RATE: regular rate RHYTHM: regular rhythm GI: COMMON NORMALS: normal to inspection, nondistended, normoactive bowel sounds, soft to palpation, non-tender and no masses PALPATION: Yes soft Extremity: COMMON NORMALS: normal to inspection and full ROM Neuro: COMMON NORMALS: oriented x3, moves all extremities and no focal motor deficits Psych: COMMON NORMALS: mental status grossly normal, thought process normal and cooperative THOUGHT PROCESS: normal thought process Skin: COMMON NORMALS: no rashes or lesions noted and no wounds GENERAL SKIN EXAM: no rashes or lesions noted Course Vital Signs: Vital signs: Vital Signs Temperature 98.0 F 11/27/19 00:37 Pulse Rate 101 H 11/27/19 01:45 Respiratory Rate 16 11/27/19 01:45 Blood Pressure 97/70 11/27/19 01:45 Pulse Oximetry 96 11/27/19 01:45 MDM - Chest Pain MDM Narrative: Medical decision making narrative: Patient presents here with chest pain that is very atypical in nature. EKG and x-ray are normal and patient has no signs of cardiac cause or pulmonary embolism. Patient is well- appearing here and is stable for discharge. She is to follow-up with primary care doctor in 3 to 5 days return if worsening. Imaging Data^: CXR: Attestation: I personally reviewed and interpreted this imaging study as follows: My impression: no acute abnormality EKG Data^: EKG 1: Attestation: I personally reviewed and interpreted this EKG as follows: EKG interpretation date: 11/27/19 EKG interpretation time: 01:11 Interpretation: nsr hr [address] or t wave abnormalities qrs 81 qtc 386 Discharge Plan Discharge Patient Disposition: Home, Self-Care Clinical Impression: Chest pain Qualifiers: Chest pain type: other chest pain Qualified Code(s): R07.89 - Other chest pain Condition: Stable Prescriptions: No Action melatonin 10 mg capsule 3 mg PO BEDTIME RF: 0 diphenhydramine HCl [NightTime Sleep Aid (diphen)] 25 mg capsule 25 mg PO DAILY PRN (Reason: Sleep) RF: 0 metoprolol succinate 25 mg Tablet Extended Release 24 Hr 12.5 mg PO BID RF: 0 Trintellix 10 mg Tablet 10 mg PO DAILY RF: 0 aspirin 325 mg Tablet 325 mg PO DAILY RF: 0 trazodone 50 mg Tablet 50 mg PO BEDTIME RF: 0 famotidine 20 mg Tablet 20 mg PO BEDTIME RF: 0 aripiprazole [Abilify] 5 mg Tablet 5 mg PO DAILY RF: 0 Zofran 4 mg tablet 4 mg PO QID PRN (Reason: nausea and vomiting) Qty: 14 RF: 0 EC-Naprosyn 500 mg tablet,delayed release (DR/EC) 500 mg PO BID PRN (Reason: pain) Qty: 20 RF: 0 Discharge Orders: Discharge Order (Routine); Ordered 11/27/19 Ordered By: Dequan Acuña Referrals: Emory Fuentes MD [Primary Care Provider] - 1-3 days Discharge Diet: Advance as tolerated Discharge Activity: Resume usual activity Patient Instructions: Chest Pain (ED) Discharge Date/Time: 11/27/19 01:45 Coding Level of Care Code ED Dairy Feed Sales Consultant for Serina Fwd Exam Comprehensive
[2019-11-27] MEDS: LORazepam 1 mg Tablet PO (01:34)
[2019-11-27 01:45] VITALS: BP 97/70; PULSE 101; RESP 16; O2SAT 96
--- NOTE | 2019-11-28 10:46 | DCPLANNER ---
records management manager called patient due to multiple visits. records management manager called [phone] no voicemail set up. records management manager called [phone] and left a voicemail for patient to return disease case manager phone call.
== END 2019-11-27 01:45 | disposition home or self-care (01) ==
PROVIDERS: Emergency Provider Emergency Medicine; Family Provider Family Medicine; PCP Family Medicine
DX: R07.9 Chest pain, unspecified (principal)
CPT/HCPCS: 12345; 71045; 93005; 99281; 99283

== ENCOUNTER 2019-12-01 | Emergency (ER) | payer MEDICAID, SELFPAY ==
[2019-12-01 00:05] VITALS: BMI 28.3
--- NOTE | 2019-12-01 00:14 | PC.NURSE ---
EKG done at 0012 and shown to ER Nurse Practitioner
--- NOTE | 2019-12-01 00:24 | ECG_ITS ---
Measurements Intervals [place] Rate: 83 P: 39 HI: 159 QRS: 23 QRSD: 96 T: 32 QT: 368 QTc: 435 SINUS RHYTHM LOW QRS VOLTAGE IN PRECORDIAL LEADS [QRS DEFLECTION < 1.0 mV IN CHEST LEADS] Compared to ECG 11/27/2019 00:57:44 Low QRS voltage now present Sinus tachycardia no longer present Myocardial infarct finding no longer present Electronically Signed On 12-01-2019 9:23:34 CDT by Erick Carlson M.D. [email or web address]
--- NOTE | 2019-12-01 00:26 | ED_ITS ---
HPI - General Adult General: Chief complaint: General Medical Stated complaint: HIGH HEART RATE Time Seen by Provider: 12/01/19 00:19 History of Present Illness: HPI narrative: Patient comes in complain about possible panic attack. Had her wisdom teeth been bothering her she got think about that. And then felt like her heart race a little bit. Then she took her albuterol inhaler and took a couple puffs. And decided call the ambulance. And she is basically doing all this while she is on the phone with 911. She feels better now complaint: Anxiety Onset (ago): year(s) Severity: mild Severity scale (1-10): 2 Associated symptoms: Reports palpitations; Deny chest pain, cough, diaphoresis, dyspnea, fevers/chills, headache(s), nausea, rash, short of breath or vomiting Review of Systems Const: Denies: diaphoresis Eyes: Denies: change in vision or blurry vision ENMT: Denies: throat pain or nasal congestion Card: Reports: palpitations; Denies: chest pain Resp: Denies: shortness of breath, productive cough or non-productive cough GI: Denies: abdominal pain, nausea or vomiting Musc: Denies: extremity pain Skin/Breast: Denies: rash Neuro: Denies: headache Psych: Reports: anxiety; Denies: depression Sang/Lymph: Denies: easy bruising PFS ED PFSH: Social History Smoking and tobacco status: never smoked Female Reproductive History: Date of last menstrual period: 10/23/19 Physical Exam Narrative: EXAM NARRATIVE: Patient is well-known to me and she does not appear in any acute distress Const: COMMON NORMALS: no apparent distress, average body habitus and oriented x3 HENMT: COMMON NORMALS: normocephalic HEAD & SCALP: normal to inspection and normocephalic FACE & SINUS: normal facial exam Eye: COMMON NORMALS: conjunctivae normal GENERAL EYE: normal appearance of both eyes CONJUNCTIVA: Yes conjunctivae normal Neck/C-Spine: COMMON NORMALS: no JVD Chest: COMMONS NORMALS: inspection of chest normal Resp: COMMON NORMALS: normal respiratory effort and clear to auscultation bilaterally AUSCULTATION: clear to auscultation bilaterally Cardio: COMMON NORMALS: no JVD, regular rate and regular rhythm RATE: regular rate RHYTHM: regular rhythm GI: COMMON NORMALS: normal to inspection, nondistended, normoactive bowel sounds Extremity: COMMON NORMALS: normal to inspection and full ROM Neuro: COMMON NORMALS: oriented x3 MDM - General Adult EKG Data^: EKG 1: EKG interpretation date: 12/01/19 EKG interpretation time: 00:28 Interpretation: Normal sinus rhythm ventricular rate 83 bpm AR interval 159 ms QRS duration 96 ms Discharge Plan Discharge Prescriptions: No Action melatonin 10 mg capsule 3 mg PO BEDTIME RF: 0 diphenhydramine HCl [NightTime Sleep Aid (diphen)] 25 mg capsule 25 mg PO DAILY PRN (Reason: Sleep) RF: 0 metoprolol succinate 25 mg Tablet Extended Release 24 Hr 12.5 mg PO BID RF: 0 Trintellix 10 mg Tablet 10 mg PO DAILY RF: 0 aspirin 325 mg Tablet 325 mg PO DAILY RF: 0 trazodone 50 mg Tablet 50 mg PO BEDTIME RF: 0 famotidine 20 mg Tablet 20 mg PO BEDTIME RF: 0 ondansetron HCl [Zofran] 4 mg tablet 4 mg PO QID PRN (Reason: nausea and vomiting) Qty: 14 RF: 0 naproxen [EC-Naprosyn] 500 mg tablet,delayed release (DR/EC) 500 mg PO BID PRN (Reason: pain) Qty: 20 RF: 0 Coding Level of Care Code ED Printing Machine Operator for Chg Fwd Exam Comprehensive
[2019-12-01] MEDS: ALPRAZolam 0.25 mg Tablet 1 MG PO (00:35)
[2019-12-01 01:12] VITALS: BP 101/65; PULSE 96; RESP 14; O2SAT 98
--- NOTE | 2019-12-02 15:45 | DCPLANNER ---
hotel manager called patient due to multiple visits. hotel manager spoke with patient, about coming into the ER all of the time, window caser asked patient if she was following up with her primary care physician, and if she she had followed up with [facility]. Patient stated that she has not followed up with [facility] yet. hotel manager gave patient the information to start services at [facility] from Monday, thru , 7:30 to 8:00. hotel manager explained to patient that she would need to walk in and let the front desk manager know that she was their to start services. hotel manager explained to patient that the ER will take care of what is going on with the patient at the time of being seen, but that patient is follow up with other physicians as the ER deems necessary for the patient to do. Patient has been told many different times to follow up with [facility], patient stated that she would follow up with [facility].
== END 2019-12-01 01:12 | disposition home or self-care (01) ==
PROVIDERS: Emergency Provider Nurse Practitioner Family; Family Provider Family Medicine; PCP Family Medicine
DX: R00.2 Palpitations (principal); F41.9 Anxiety disorder, unspecified
CPT/HCPCS: 12345; 93005; 99281; 99283

== ENCOUNTER 2019-12-01 04:32 | Emergency (ER) | payer MEDICAID, SELFPAY ==
[2019-12-01 04:38] VITALS: BP 110/74; PULSE 86; RESP 16; TEMP 36.6; O2SAT 100; BMI 23.4
--- NOTE | 2019-12-01 05:03 | PC.NURSE ---
Patient's blood glucose is 113, nurse and doctor were notified.
[2019-12-01 05:05] LABS: Glucose Point of Care 113 mg/dL (70-110)
--- NOTE | 2019-12-01 05:05 | PC.NURSE ---
Introduced self to patient and initiated vital signs. Patient presents A&O x 4. NAD, ABCs intact, MAEW and agreeable to treatment. Respirations are even and unlabored. Pt states that the chief complaint for the ER visit today is due to check her self out. I was waiting for a ride and started to feel blah, so I decided to come back in to get checked out to see if the Xanax I took was supposed to make me feel like this. Pt denies any vision disturbances or lightheadedness. Bed left in lowest position in semi-fowlers with side rails up.Reassured patient of needs and will continue to monitor.
--- NOTE | 2019-12-01 05:25 | ED_ITS ---
Entered by Matilde Murdock, acting as scribe for Ángel Allen DO Dec 01, 2019 04:32 HPI - Recheck/Abnormal Lab/Rx General: Chief Complaint: Recheck/Abnormal Lab/Rx Stated Complaint: ASKING FOR BG CHECK Time Seen by Provider: 12/01/19 05:25 Source: patient Mode of arrival: ambulatory History of Present Illness: HPI narrative: 29 y/o female presents to the ED for a BS test. Pt states she was feeling bleh and down . She thought she might have become a diabetic since the last time she was seen here, earlier this week. She says she has been craving sugar and chocolate so she didnt know if that meant she was running high or low . She decided she should be evaluated by a physician. She says she saw her PCP last week for a check up. MD complaint: other (Blood sugar test) Initial visit (ago): hour(s) Review of Systems Const: Denies: fever or chills Eyes: Denies: change in vision or blurry vision ENMT: Denies: painful swallowing, swelling of lips/tongue, bleeding gums, dental pain, Change in hearing, nose bleeds, post nasal drip or facial/sinus pain Card: Denies: chest pain, palpitations, irregular heart rhythm, edema, swelling of feet/ankles, shortness of breath on exertion or shortness of breath when lying down Resp: Denies: shortness of breath, productive cough, non-productive cough or wheezing GI: Denies: abdominal pain, nausea, vomiting, rectal pain, blood in stool or black tarry stool : Denies: painful urination, urinary frequency, urinary urgency or blood in urine Musc: Denies: neck pain, back pain, redness or joint warmth Skin/Breast: Denies: rash, itching or redness Neuro: Denies: headache, dizziness, vertigo, confusion or seizure-like activity Psych: Reports: anxiety (difficulty sleeping) and other (feeling bleh ); Denies: visual hallucinations or auditory hallucinations PFSH ED PFSH: Social History Smoking and tobacco status: current every day smoker Physical Exam Const: COMMON NORMALS: alert GENERAL APPEARANCE: well developed ORIENTATION/CONSCIOUSNESS: Yes awake, Yes oriented to person, Yes oriented to place and Yes oriented to time HENMT: COMMON NORMALS: normocephalic, external ears normal, external nose normal and moist oral mucous membranes HEAD & SCALP: normocephalic FACE & SINUS: normal facial exam NOSE: external nose normal and no nasal discharge EXTERNAL EAR: Yes external ears normal MOUTH: tongue normal TEETH & GINGI VA: no abnormal tooth and associated gingiva THROAT: posterior oropharynx normal; no peritonsillar mass Eye: COMMON NORMALS: PERRL, EOMs intact bilaterally and conjunctivae normal EYELID: eyelids normal CONJUNCTIVA: Yes conjunctivae normal PUPIL: Yes PERRL Neck/C-Spine: COMMON NORMALS: full ROM GENERAL: No tracheal deviation Chest: COMMONS NORMALS: inspection of chest normal CHEST: Yes symmetrical chest wall rise and No tenderness Resp: COMMON NORMALS: clear to auscultation bilaterally EFFORT & INSPECTION: No tachypneic, No respiratory distress, No retractions, No uses accessory muscles and No tracheal deviation AUSCULTATION: clear to auscultation bilaterally, no rhonchi, no wheezes and lung sounds not diminished Cardio: COMMON NORMALS: regular rate and regular rhythm RATE: regular rate RHYTHM: regular rhythm HEART SOUNDS: no murmurs PERIPHERAL PULSES: radial pulses present GI: INSPECTION: No abdominal distension AUSCULTATION: No hyperactive bowel sounds and No hypoactive bowel sounds PALPATION: No tender, No guarding and No rigid PERCUSSION: no dullness to percussion and no tympanic to percussion : COMMON NORMALS: Yes no CVA tenderness BLADDER/KIDNEY EXAM: Yes no CVA tenderness Back/Pelvis: COMMON NORMALS: no CVA tenderness PELVIS: Yes no pain with anterior-posterior compression and Yes no pain with lateral compression Neuro: SENSORIUM/ORIENTATION: Yes alert, Yes oriented to person, Yes oriented to place and Yes oriented to time Psych: COMMON NORMALS: speech normal SPEECH: Yes normal speech Skin: COMMON NORMALS: no rashes or lesions noted GENERAL SKIN EXAM: no rashes or lesions noted Course Vital Signs: Vital signs: Vital Signs Temperature 97.8 F 12/01/19 04:38 Pulse Rate 86 12/01/19 04:38 Respiratory Rate 16 12/01/19 04:38 Blood Pressure 110/74 12/01/19 04:38 Pulse Oximetry 100 12/01/19 04:38 MDM - Recheck/Abnormal Lab/Rx Lab Data: Labs: Lab Results 12/01/19 Range/Units 05:00 POC Glucose 113 (70-110) mg/dL Discharge Plan Discharge Patient Disposition: Home, Self-Care Clinical Impression: Anxiety, generalized Condition: Stable Prescriptions: No Action melatonin 10 mg capsule 3 mg PO BEDTIME RF: 0 diphenhydramine HCl [NightTime Sleep Aid (diphen)] 25 mg capsule 25 mg PO DAILY PRN (Reason: Sleep) RF: 0 metoprolol succinate 25 mg Tablet Extended Release 24 Hr 12.5 mg PO BID RF: 0 Trintellix 10 mg Tablet 10 mg PO DAILY RF: 0 aspirin 325 mg Tablet 325 mg PO DAILY RF: 0 trazodone 50 mg Tablet 50 mg PO BEDTIME RF: 0 famotidine 20 mg Tablet 20 mg PO BEDTIME RF: 0 ondansetron HCl [Zofran] 4 mg tablet 4 mg PO QID PRN (Reason: nausea and vomiting) Qty: 14 RF: 0 naproxen [EC-Naprosyn] 500 mg tablet,delayed release (DR/EC) 500 mg PO BID PRN (Reason: pain) Qty: 20 RF: 0 Discharge Orders: Discharge Order (Routine); Ordered 12/01/19 Ordered By: Ángel Allen Referrals: Emory Fuentes MD [Primary Care Provider] - 4-7 days Discharge Diet: Usual diet Discharge Activity: Increase activity as tolerated Patient Instructions: Anxiety (ED) Coding Level of Care Code ED Party Plan Sales Director for Chg Fwd Exam Comprehensive The documentation recorded by the Mathieu short Ashley, accurately reflects the service I personally performed and the decisions made by Alejandro dill Jeremy John, DO Dec 01, 2019 04:32
== END 2019-12-01 06:31 | disposition home or self-care (01) ==
PROVIDERS: Emergency Provider Emergency Medicine; Family Provider Family Medicine; PCP Family Medicine
DX: F41.1 Generalized anxiety disorder (principal); F17.200 Nicotine dependence, unspecified, uncomplicated
CPT/HCPCS: 12345; 36416; 82962; 99281; 99282

== ENCOUNTER 2019-12-02 09:48 | Outpatient (CLI) | payer MEDICAID, SELFPAY ==
--- NOTE | 2019-12-02 10:04 | XR_ITS ---
WS: [id number] [place] [id number] REASON FOR EXAM: JAW PAIN FINDINGS: The mandible appears to be intact. Along the right side there is evidence of a large cavern ous changes of the molars with questionable abscess in the soft tissues seen. The left side appears t o be essentially normal XR/[place] [id number] IMPRESSION: Suspect large cavity is an abscess in the posterior molars on the right side.
== END 2019-12-02 09:49 | disposition home or self-care (01) ==
LOC: RAD 09:51
PROVIDERS: Family Provider Family Medicine; PCP Family Medicine; Visit Provider Specialist
DX: R68.84 Jaw pain (principal)
CPT/HCPCS: 70330

== ENCOUNTER 2019-12-03 23:55 | Emergency (ER) | payer MEDICAID, SELFPAY ==
[2019-12-04 00:12] VITALS: BP 124/79; PULSE 99; RESP 16; TEMP 37.1; O2SAT 98; BMI 29.5
--- NOTE | 2019-12-04 01:34 | PC.NURSE ---
Provider at bedside.
--- NOTE | 2019-12-04 01:36 | W.ED.DENTAL ---
HPI - Dental/Oral General: Chief complaint: Dental/Oral Stated complaint: Depressed, toothpain Time Seen by Provider: 12/04/19 01:22 Source: patient Mode of arrival: ambulatory Limitations: no limitations History of Present Illness: HPI Narrative: Patient is a 29-year-old female here for complaints of pain to her right lower wisdom tooth. She apparently had ENT evaluation recently for TMJ problems and they performed an x-ray of her TMJ joint which radiology over read commented on a potential dental abscess and was told to come to the emergency department. Patient states she recently saw a dentist and has another appointment today at 4:00. MD Complaint: tooth pain Teeth map: 1. pain Onset (ago): day(s) Relieving factors: nothing Exacerbating factors: chewing Context: history of dental caries Associated symptoms: Reports no associated symptoms; Denies fever(s) or painful swallowing Review of Systems Const: Denies: fever or chills ENMT: Reports: dental pain; Denies: throat pain, enlarged tonsils, painful swallowing, oral sores/lesions, bleeding gums, dry mouth or bad breath Card: Denies: chest pain GI: Denies: nausea or vomiting Skin/Breast: Denies: rash Neuro: Denies: headache PFSH ED PFSH: Social History Smoking and tobacco status: never smoked Physical Exam Const: COMMON NORMALS: no apparent distress, average body habitus, oriented x3, no limitations, healthy appearing, alert and well nourished HENMT: MOUTH: oral and palatal mucosa normal, lip normal, tongue normal and moist mucous membranes abnormal THROAT: posterior oropharynx normal, tonsils normal and uvula midline Neuro: COMMON NORMALS: oriented x3 SENSORIUM/ORIENTATION: Yes alert Course Vital Signs: Vital signs: Vital Signs Temperature 98.8 F 12/04/19 00:12 Pulse Rate 99 12/04/19 00:12 Respiratory Rate 16 12/04/19 00:12 Blood Pressure 124/79 12/04/19 00:12 Pulse Oximetry 98 12/04/19 00:12 MDM - Dental/Oral Imaging Data^: TMJ XR from ENT office : Radiologist's impression: [address] [address] XRay Report Signed Patient: Kathi Torres Unit #: [id number] : 1990 Age/Sex: 29 / F ADM Date: 12/02/19 Loc: [facility] Room/Bed: Attending Dr: Mark Cote MD Ordering Provider/Ordering MD: Mark Cote MD Date of Service: 12/02/19 Procedure(s): [place] [id number] Accession Number(s): [id number] Report Number: [id number] WS: [id number] [place] [id number] REASON FOR EXAM: JAW PAIN FINDINGS: The mandible appears to be intact. Along the right side there is evidence of a large cavernous changes of the molars with questionable abscess in the soft tissues seen. The left side appears to be essentially normal XR/[place] [id number] IMPRESSION: Suspect large cavity is an abscess in the posterior molars on the right side. Dictated By: Mike Mei DO Signed By: Mike Mei DO Signed Date/Time: 12/02/19 1034 DD/ 1032 Discharge Plan Discharge Patient Disposition: Home, Self-Care Clinical Impression: Pain, dental, Abscess, dental Condition: Stable Prescriptions: New penicillin V potassium 500 mg tablet 500 mg PO Q6H 7 Days Qty: 28 RF: 0 No Action melatonin 10 mg capsule 3 mg PO BEDTIME RF: 0 diphenhydramine HCl [NightTime Sleep Aid (diphen)] 25 mg capsule 25 mg PO DAILY PRN (Reason: Sleep) RF: 0 metoprolol succinate 25 mg Tablet Extended Release 24 Hr 12.5 mg PO BID RF: 0 Trintellix 10 mg Tablet 10 mg PO DAILY RF: 0 aspirin 325 mg Tablet 325 mg PO DAILY RF: 0 trazodone 50 mg Tablet 50 mg PO BEDTIME RF: 0 famotidine 20 mg Tablet 20 mg PO BEDTIME RF: 0 ondansetron HCl [Zofran] 4 mg tablet 4 mg PO QID PRN (Reason: nausea and vomiting) Qty: 14 RF: 0 naproxen [EC-Naprosyn] 500 mg tablet,delayed release (DR/EC) 500 mg PO BID PRN (Reason: pain) Qty: 20 RF: 0 Discharge Orders: Discharge Order (Routine); Ordered 12/04/19 Ordered By: Ana Alanis Referrals: Emory Fuentes MD [Primary Care Provider] - Discharge Diet: GI Soft Discharge Activity: Resume usual activity Activity Restrictions/Additional Instructions: Follow up with your dentist today at 4:00pm as scheduled. Discharge Date/Time: 12/04/19 01:52 Coding Level of Care Code ED Superintendent Transmission for Serina Chandler
[2019-12-04] MEDS: penicillin v potassium 250 mg Tablet 500 MG PO (01:48)
== END 2019-12-04 01:52 | disposition home or self-care (01) ==
PROVIDERS: Emergency Provider Physician Assistant; Family Provider Family Medicine; PCP Family Medicine
DX: K04.7 Periapical abscess without sinus (principal)
CPT/HCPCS: 12345; 99281; 99283

== ENCOUNTER 2019-12-07 00:23 | Emergency (ER) | payer MEDICAID, SELFPAY ==
[2019-12-07 00:24] VITALS: BP 118/69; PULSE 88; RESP 18; TEMP 36.8; O2SAT 100; BMI 29.2
--- NOTE | 2019-12-07 00:36 | ED_ITS ---
Documented by User: CARL Mcelroy 12/07/19 03:23 HPI - Abdominal Pain General: Chief Complaint: Abdominal Pain Stated Complaint: ABD PAIN Time Seen by Provider: 12/07/19 00:24 History of Present Illness: HPI narrative: Patient is a 29-year-old female who comes into the ED with constipation and abdominal pain. Patient says she has not had a bowel movement in around 3 to 4 days. Her last bowel movement 3 to 4 days ago was hard and she had to strain to get it out. Patient has not taken any [id number] stool softeners or laxatives to help with constipation. The abdominal pain she rates as a 6 to a 7 out of 10. Pain located in the left lower quadrant. Patient denies any fevers, but states she cannot had the chills when she was straining to have a bowel movement while sitting on the toilet today. Diet has been high on protein, but states she has not been getting a lot of fiber in her diet and is not been eating a lot of fruits and vegetables recently. Denies any chest pain, shortness of breath, nausea, vomiting, diarrhea, dysuria, hematuria. Associated Symptoms: Reports chills and constipation (3-4 days); Denies diarrhea, dysuria, fever(s), hematochezia, hematuria, nausea and vomiting Review of Systems Const: Reports: chills; Denies: fever or fatigue Eyes: Denies: change in vision or eye discomfort ENMT: Denies: throat pain, painful swallowing, nasal discharge or nasal congestion Card: Denies: chest pain, palpitations, edema, swelling of feet/ankles, shortness of breath on exertion or shortness of breath when lying down Resp: Denies: shortness of breath, productive cough or non-productive cough GI: Reports: abdominal pain (LLQ) and constipation (3-4 days); Denies: nausea, vomiting, diarrhea or blood in stool : Denies: flank pain, painful urination or blood in urine Musc: Denies: neck pain, back pain or extremity swelling Skin/Breast: Denies: rash or new lesion Neuro: Denies: headache, numbness in extremities or weakness in extremities PFSH ED PFSH: Medical History delivery delivered Social History Smoking and tobacco status: never smoked Physical Exam Narrative: EXAM NARRATIVE: Patient is a 29-year-old female who is sitting comfortably on the exam bed when I enter the room. Patient appears to be in no acute pain or distress. Const: COMMON NORMALS: oriented x3 HENMT: COMMON NORMALS: normocephalic HEAD & SCALP: normocephalic MOUTH: oral and palatal mucosa normal THROAT: posterior oropharynx normal and uvula midline Neck/C-Spine: COMMON NORMALS: supple GENERAL: Yes normal visual inspection Lymph: LYMPHATIC: no lymphadenopathy noted Resp: COMMON NORMALS: normal respiratory effort, no retractions, no use of accessory muscles and clear to auscultation bilaterally AUSCULTATION: clear to auscultation bilaterally Cardio: COMMON NORMALS: regular rate, regular rhythm, S1 normal heart sound, S2 normal heart sound, no gallops, no clicks, no murmurs and peripheral pulses 2+ throughout RATE: regular rate RHYTHM: regular rhythm HEART SOUNDS: S1 normal and S2 normal PERIPHERAL PULSES: pulses 2+ throughout GI: COMMON NORMALS: normal to inspection, nondistended, normoactive bowel sounds, soft to palpation, no hepatosplenomegaly and no masses AUSCULTATION: Yes normoactive bowel sounds PALPATION: Yes soft, Yes tender Details: LLQ (mild-pt did not appear to be in pain during deep palpation.), No guarding, Yes no hepatosplenomegaly, No mass and No rebound tenderness present : COMMON NORMALS: Yes no CVA tenderness BLADDER/KIDNEY EXAM: Yes no CVA tenderness Back/Pelvis: COMMON NORMALS: no CVA tenderness Extremity: COMMON NORMALS: normal to inspection Neuro: COMMON NORMALS: oriented x3 GAIT: Yes normal gait Skin: COMMON NORMALS: no rashes or lesions noted GENERAL SKIN EXAM: no rashes or lesions noted and dry skin Course Vital Signs: Vital signs: Vital Signs Temperature 98.3 F 12/07/19 00:24 Pulse Rate 78 12/07/19 02:12 Respiratory Rate 16 12/07/19 02:12 Blood Pressure 112/53 12/07/19 02:12 Pulse Oximetry 97 12/07/19 02:12 MDM - Abdominal Pain Lab Data: Labs: Lab Results 03/21/20 03/21/20 03/21/20 Range/Units 00:55 00:55 00:55 WBC 9.2 (4.0-10.0) 10^3/ uL RBC 3.28 L (4.1-5.3) 10^6/u L Hgb 10.8 L (11.5-15.3) g/dL Hct 32.7 L (37.0-47.0) % MCV 99.7 H (81-99) fL MCH 32.9 (28.0-34.0) pg MCHC 33.0 (30.0-36.0) g/dL RDW 12.9 (12.1-15.1) % Plt Count 272 (130-400) 10^3/c mm MPV 8.9 (7.4-10.4) fL Neut % (Auto) 62.7 % Lymph % (Auto) 26.4 % [place] % (Auto) 8.7 % Eos % (Auto) 1.6 % Baso % (Auto) 0.3 % Neut # (Auto) 5.8 (1.8-7.7) 10^3/u L Lymph # (Auto) 2.4 (0.8-4.8) 10^3/u L [place] # (Auto) 0.8 (0.2-0.9) 10^3/u L Eos # (Auto) 0.2 (0.0-0.8) 10^3/u L Baso # (Auto) 0.0 (0.0-0.1) 10^3/u L Nucleated RBC % (a uto) 0 % Nucleated RBCs # 0.0 /100WBC Sodium 141 (136-145) mmol/L Potassium 4.3 (3.5-5.1) mmol/L Chloride 104 (98-107) mmol/L Carbon Dioxide 27 (22-29) mmol/L Anion Gap 14.3 (5-19) BUN 20 (6-20) mg/dL Creatinine 0.6 (0.5-0.9) mg/dL GFR Calculation 119.0 (90-130) mL/min Glucose 101 (65-115) mg/dL Calculated Osmolal ity 289 (285-295) mOsm/k g Calcium 9.9 (8.5-10.5) mg/dL Total Bilirubin 0.2 (0.15-1.2) mg/dL AST 22 (0-32) U/L ALT 35 H (0-33) U/L Alkaline Phosphata se 73 (35-105) IU/L Total Protein 7.0 (6.6-8.7) g/dL Albumin 4.1 (3.5-5.2) g/dL Globulin 2.9 (1.3-4.6) g/dL Lipase 33 (13-60) U/L HCG, Qual Negative (Negative) Urine Color (Yellow) Urine Appearance (CLEAR) Urine pH (5-7) Ur Specific Gravit y (1.005-1.030) Urine Protein (Negative) Urine Glucose (UA) (Normal) Urine Ketones (Negative) Urine Blood (Negative) Urine Nitrate (Negative) Urine Bilirubin (NEGATIVE) Urine Urobilinogen (Negative) mg/dL Ur Leukocyte Yoanna ase (Negative) Urine RBC (0-2) /hpf Urine WBC (0-5) /hpf Ur Squamous Epith Cells (0-5) Urine Bacteria (NONE) 12/07/19 Range/Units 01:45 WBC (4.0-10.0) 10^3/ uL RBC (4.1-5.3) 10^6/u L Hgb (11.5-15.3) g/dL Hct (37.0-47.0) % MCV (81-99) fL MCH (28.0-34.0) pg MCHC (30.0-36.0) g/dL RDW (12.1-15.1) % Plt Count (130-400) 10^3/c mm MPV (7.4-10.4) fL Neut % (Auto) % Lymph % (Auto) % [place] % (Auto) % Eos % (Auto) % Baso % (Auto) % Neut # (Auto) (1.8-7.7) 10^3/u L Lymph # (Auto) (0.8-4.8) 10^3/u L [place] # (Auto) (0.2-0.9) 10^3/u L Eos # (Auto) (0.0-0.8) 10^3/u L Baso # (Auto) (0.0-0.1) 10^3/u L Nucleated RBC % (a uto) % Nucleated RBCs # /100WBC Sodium (136-145) mmol/L Potassium (3.5-5.1) mmol/L Chloride (98-107) mmol/L Carbon Dioxide (22-29) mmol/L Anion Gap (5-19) BUN (6-20) mg/dL Creatinine (0.5-0.9) mg/dL GFR Calculation (90-130) mL/min Glucose (65-115) mg/dL Calculated Osmolal ity (285-295) mOsm/k g Calcium (8.5-10.5) mg/dL Total Bilirubin (0.15-1.2) mg/dL AST (0-32) U/L ALT (0-33) U/L Alkaline Phosphata se (35-105) IU/L Total Protein (6.6-8.7) g/dL Albumin (3.5-5.2) g/dL Globulin (1.3-4.6) g/dL Lipase (13-60) U/L HCG, Qual (Negative) Urine Color Yellow (Yellow) Urine Appearance Clear (CLEAR) Urine pH 7 (5-7) Ur Specific Gravit y 1.010 (1.005-1.030) Urine Protein Neg (Negative) Urine Glucose (UA) Norm (Normal) Urine Ketones Negative (Negative) Urine Blood 2+ H (Negative) Urine Nitrate Negative (Negative) Urine Bilirubin Neg (NEGATIVE) Urine Urobilinogen Norm (Negative) mg/dL Ur Leukocyte Yoanna ase Negative (Negative) Urine RBC 0-4 H (0-2) /hpf Urine WBC 0-4 H (0-5) /hpf Ur Squamous Epith Cells 0-4 H (0-5) Urine Bacteria 1+ H (NONE) Discharge Plan Discharge Patient Disposition: Home, Self-Care Clinical Impression: Constipation Qualifiers: Constipation type: unspecified constipation type Qualified Code(s): K59.00 - Constipation, unspecified Condition: Stable Prescriptions: New Miralax 17 gram/dose powder 17 gm PO DAILY Qty: 119 RF: 0 No Action melatonin 10 mg capsule 3 mg PO BEDTIME RF: 0 diphenhydramine HCl [NightTime Sleep Aid (diphen)] 25 mg capsule 25 mg PO DAILY PRN (Reason: Sleep) RF: 0 metoprolol succinate 25 mg Tablet Extended Release 24 Hr 12.5 mg PO BID RF: 0 Trintellix 10 mg Tablet 10 mg PO DAILY RF: 0 penicillin V potassium 500 mg tablet 500 mg PO Q6H 7 Days Qty: 28 RF: 0 aspirin 325 mg Tablet 325 mg PO DAILY RF: 0 trazodone 50 mg Tablet 50 mg PO BEDTIME RF: 0 famotidine 20 mg Tablet 20 mg PO BEDTIME RF: 0 ondansetron HCl [Zofran] 4 mg tablet 4 mg PO QID PRN (Reason: nausea and vomiting) Qty: 14 RF: 0 naproxen [EC-Naprosyn] 500 mg tablet,delayed release (DR/EC) 500 mg PO BID PRN (Reason: pain) Qty: 20 RF: 0 Discharge Orders: Discharge Order (Routine); Ordered 12/07/19 Ordered By: Eliezer Cooper Referrals: Emory Fuentes MD [Primary Care Provider] - Discharge Diet: Regular Discharge Activity: Resume usual activity Patient Instructions: Constipation - Adult Activity Restrictions/Additional Instructions: Follow-up with your PCP in 7 to 10 days for reevaluation. I am sending you home with some mag citrate to help with constipation. After he use the mag citrate hope clear bowels out, then you can start eating more high-fiber foods including vegetables and fruits. Also given your prescription for MiraLAX which you can use as needed for any constipation. Discharge Date/Time: 12/07/19 02:12 Coding Level of Care Code ED Crating And Moving Estimator for Chg Fwd Exam Comprehensive Documented by User: Sarah Day 12/07/19 05:00 HPI - Abdominal Pain General: Chief Complaint: Abdominal Pain Stated Complaint: ABD PAIN Time Seen by Provider: 12/07/19 00:24 [facility] ED PFSH: Medical History delivery delivered Social History Smoking and tobacco status: never smoked Course Vital Signs: Vital signs: Vital Signs Temperature 98.3 F 12/07/19 00:24 Pulse Rate 78 03/21/20 02:12 Respiratory Rate 16 12/07/19 02:12 Blood Pressure 112/53 12/07/19 02:12 Pulse Oximetry 97 12/07/19 02:12 MDM - Abdominal Pain MDM Narrative: Medical decision making narrative: This patient was not seen by me, evaluated by me nor discussed with me by the midlevel provider. I was available in the ER if needed throughout their stay but was not involved or contacted about their care. I am signing this chart per hospital policy ? Dr. Day. Lab Data: Labs: Lab Results 12/07/19 12/07/19 12/07/19 Range/Units 00:55 00:55 00:55 WBC 9.2 (4.0-10.0) 10^3/ uL RBC 3.28 L (4.1-5.3) 10^6/u L Hgb 10.8 L (11.5-15.3) g/dL Hct 32.7 L (37.0-47.0) % MCV 99.7 H (81-99) fL MCH 32.9 (28.0-34.0) pg MCHC 33.0 (30.0-36.0) g/dL RDW 12.9 (12.1-15.1) % Plt Count 272 (130-400) 10^3/c mm MPV 8.9 (7.4-10.4) fL Neut % (Auto) 62.7 % Lymph % (Auto) 26.4 % [place] % (Auto) 8.7 % Eos % (Auto) 1.6 % Baso % (Auto) 0.3 % Neut # (Auto) 5.8 (1.8-7.7) 10^3/u L Lymph # (Auto) 2.4 (0.8-4.8) 10^3/u L [place] # (Auto) 0.8 (0.2-0.9) 10^3/u L Eos # (Auto) 0.2 (0.0-0.8) 10^3/u L Baso # (Auto) 0.0 (0.0-0.1) 10^3/u L Nucleated RBC % (a uto) 0 % Nucleated RBCs # 0.0 /100WBC Sodium 141 (136-145) mmol/L Potassium 4.3 (3.5-5.1) mmol/L Chloride 104 (98-107) mmol/L Carbon Dioxide 27 (22-29) mmol/L Anion Gap 14.3 (5-19) BUN 20 (6-20) mg/dL Creatinine 0.6 (0.5-0.9) mg/dL GFR Calculation 119.0 (90-130) mL/min Glucose 101 (65-115) mg/dL Calculated Osmolal ity 289 (285-295) mOsm/k g Calcium 9.9 (8.5-10.5) mg/dL Total Bilirubin 0.2 (0.15-1.2) mg/dL AST 22 (0-32) U/L ALT 35 H (0-33) U/L Alkaline Phosphata se 73 (35-105) IU/L Total Protein 7.0 (6.6-8.7) g/dL Albumin 4.1 (3.5-5.2) g/dL Globulin 2.9 (1.3-4.6) g/dL Lipase 33 (13-60) U/L HCG, Qual Negative (Negative) Urine Color (Yellow) Urine Appearance (CLEAR) Urine pH (5-7) Ur Specific Gravit y (1.005-1.030) Urine Protein (Negative) Urine Glucose (UA) (Normal) Urine Ketones (Negative) Urine Blood (Negative) Urine Nitrate (Negative) Urine Bilirubin (NEGATIVE) Urine Urobilinogen (Negative) mg/dL Ur Leukocyte Yoanna ase (Negative) Urine RBC (0-2) /hpf Urine WBC (0-5) /hpf Ur Squamous Epith Cells (0-5) Urine Bacteria (NONE) 12/07/19 Range/Units 01:45 WBC (4.0-10.0) 10^3/ uL RBC (4.1-5.3) 10^6/u L Hgb (11.5-15.3) g/dL Hct (37.0-47.0) % MCV (81-99) fL MCH (28.0-34.0) pg MCHC (30.0-36.0) g/dL RDW (12.1-15.1) % Plt Count (130-400) 10^3/c mm MPV (7.4-10.4) fL Neut % (Auto) % Lymph % (Auto) % [place] % (Auto) % Eos % (Auto) % Baso % (Auto) % Neut # (Auto) (1.8-7.7) 10^3/u L Lymph # (Auto) (0.8-4.8) 10^3/u L [place] # (Auto) (0.2-0.9) 10^3/u L Eos # (Auto) (0.0-0.8) 10^3/u L Baso # (Auto) (0.0-0.1) 10^3/u L Nucleated RBC % (a uto) % Nucleated RBCs # /100WBC Sodium (136-145) mmol/L Potassium (3.5-5.1) mmol/L Chloride (98-107) mmol/L Carbon Dioxide (22-29) mmol/L Anion Gap (5-19) BUN (6-20) mg/dL Creatinine (0.5-0.9) mg/dL GFR Calculation (90-130) mL/min Glucose (65-115) mg/dL Calculated Osmolal ity (285-295) mOsm/k g Calcium (8.5-10.5) mg/dL Total Bilirubin (0.15-1.2) mg/dL AST (0-32) U/L ALT (0-33) U/L Alkaline Phosphata se (35-105) IU/L Total Protein (6.6-8.7) g/dL Albumin (3.5-5.2) g/dL Globulin (1.3-4.6) g/dL Lipase (13-60) U/L HCG, Qual (Negative) Urine Color Yellow (Yellow) Urine Appearance Clear (CLEAR) Urine pH 7 (5-7) Ur Specific Gravit y 1.010 (1.005-1.030) Urine Protein Neg (Negative) Urine Glucose (UA) Norm (Normal) Urine Ketones Negative (Negative) Urine Blood 2+ H (Negative) Urine Nitrate Negative (Negative) Urine Bilirubin Neg (NEGATIVE) Urine Urobilinogen Norm (Negative) mg/dL Ur Leukocyte Yoanna ase Negative (Negative) Urine RBC 0-4 H (0-2) /hpf Urine WBC 0-4 H (0-5) /hpf Ur Squamous Epith Cells 0-4 H (0-5) Urine Bacteria 1+ H (NONE) Discharge Plan Discharge Patient Disposition: Home, Self-Care Clinical Impression: Constipation Qualifiers: Constipation type: unspecified constipation type Qualified Code(s): K59.00 - Constipation, unspecified Condition: Stable Prescriptions: New Miralax 17 gram/dose powder 17 gm PO DAILY Qty: 119 RF: 0 No Action melatonin 10 mg capsule 3 mg PO BEDTIME RF: 0 diphenhydramine HCl [NightTime Sleep Aid (diphen)] 25 mg capsule 25 mg PO DAILY PRN (Reason: Sleep) RF: 0 metoprolol succinate 25 mg Tablet Extended Release 24 Hr 12.5 mg PO BID RF: 0 Trintellix 10 mg Tablet 10 mg PO DAILY RF: 0 penicillin V potassium 500 mg tablet 500 mg PO Q6H 7 Days Qty: 28 RF: 0 aspirin 325 mg Tablet 325 mg PO DAILY RF: 0 trazodone 50 mg Tablet 50 mg PO BEDTIME RF: 0 famotidine 20 mg Tablet 20 mg PO BEDTIME RF: 0 ondansetron HCl [Zofran] 4 mg tablet 4 mg PO QID PRN (Reason: nausea and vomiting) Qty: 14 RF: 0 naproxen [EC-Naprosyn] 500 mg tablet,delayed release (DR/EC) 500 mg PO BID PRN (Reason: pain) Qty: 20 RF: 0 Discharge Orders: Discharge Order (Routine); Ordered 12/07/19 Ordered By: Eliezer Cooper Referrals: Emory Fuentes MD [Primary Care Provider] - Discharge Diet: Regular Discharge Activity: Resume usual activity Patient Instructions: Constipation - Adult Activity Restrictions/Additional Instructions: Follow-up with your PCP in 7 to 10 days for reevaluation. I am sending you home with some mag citrate to help with constipation. After he use the mag citrate hope clear bowels out, then you can start eating more high-fiber foods including vegetables and fruits. Also given your prescription for MiraLAX which you can use as needed for any constipation. Discharge Date/Time: 12/07/19 02:12 Coding Level of Care Code ED Crating And Moving Estimator for Serina Fwd Exam Comprehensive
[2019-12-07 01:02] LABS: Basophils % 0.3 %; Eosinophils # 0.2 10^3/uL (0.0-0.8); Eosinophils % 1.6 %; Hematocrit 32.7 % (37.0-47.0); Hemoglobin 10.8 g/dL (11.5-15.3); Lymphocytes # 2.4 10^3/uL (0.8-4.8); Lymphocytes % 26.4 %; Mean Corpuscular Hemoglobin 32.9 pg (28.0-34.0); Mean Corpuscular Volume 99.7 fL (81-99); Mean Platelet Volume 8.9 fL (7.4-10.4); Monocytes # 0.8 10^3/uL (0.2-0.9); Monocytes % 8.7 %; Neutrophils # 5.8 10^3/uL (1.8-7.7); Neutrophils % 62.7 %; Nucleated Red Blood Cells % 0 %; Platelet Count 272 10^3/cmm (130-400); Red Blood Count 3.28 10^6/uL (4.1-5.3); Red Cell Distribution Width 12.9 % (12.1-15.1); White Blood Count 9.2 10^3/uL (4.0-10.0)
[2019-12-07 01:43] LABS: Alanine Aminotransferase 35 U/L (0-33); Albumin Level 4.1 g/dL (3.5-5.2); Alkaline Phosphatase 73 IU/L (35-105); Anion Gap 14.3 (5-19); Aspartate Amino Transferase 22 U/L (0-32); Blood Urea Nitrogen 20 mg/dL (6-20); Calcium 9.9 mg/dL (8.5-10.5); Carbon Dioxide 27 mmol/L (22-29); Chloride 104 mmol/L (98-107); Globulin 2.9 g/dL (1.3-4.6); Glucose 101 mg/dL (65-115); Lipase 33 U/L (13-60); Osmolality Calculated 289 mOsm/kg (285-295); Potassium 4.3 mmol/L (3.5-5.1); Sodium 141 mmol/L (136-145); Total Bilirubin 0.2 mg/dL (0.15-1.2)
[2019-12-07 01:49] LABS: HCG, Serum Qual Negative (Negative)
[2019-12-07] MEDS: magnesium citrate Btl 296 mL 150 ML PO (02:08)
[2019-12-07 02:10] LABS: Bacteria Urine 1+; Bilirubin Urine Neg (NEGATIVE); Blood Urine 2+ (Negative); Glucose Urine UA Norm (Normal); Ketones Urine Negative (Negative); Leukocyte Esterase Urine Negative (Negative); Nitrate Urine Negative (Negative); Protein Urine Neg (Negative); RBC Urine 0-4 /hpf (0-2); Squamous Epithelial Cell Urine 0-4 (0-5); Urine Appearance Clear (CLEAR); Urine Color Yellow (Yellow); Urobilinogen Urine Norm (Negative); WBC Urine 0-4 /hpf (0-5); pH Urine 7 (5-7)
[2019-12-07 02:12] VITALS: BP 112/53; PULSE 78; RESP 16; O2SAT 97
== END 2019-12-07 02:12 | disposition home or self-care (01) ==
PROVIDERS: Emergency Provider Physician Assistant; Family Provider Family Medicine; PCP Family Medicine
DX: K59.00 Constipation, unspecified (principal)
CPT/HCPCS: 12345; 80053; 81001; 83690; 84703; 85025; 99282; 99283; A9270

== ENCOUNTER 2019-12-08 06:43 | Emergency (ER) | payer MEDICAID, SELFPAY ==
[2019-12-08 06:45] VITALS: BP 117/69; PULSE 102; RESP 18; TEMP 37.2; O2SAT 97; BMI 29.5
--- NOTE | 2019-12-08 06:50 | PC.NURSE ---
Introduced self to patient and initiated vital signs. Patient presents A&O x 4. NAD, ABCs intact, MAEW and agreeable to treatment. Respirations are even and unlabored. Pt states that the chief complaint for the ER visit today is due to rectal bleeding. Pt denies any vision disturbances or lightheadedness. Bed left in lowest position in semi-fowlers with side rails up. Reassured patient of needs and will continue to monitor. Awaiting provider at bedside.
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
--- NOTE | 2019-12-09 14:36 | DCPLANNER ---
legal records manager tried to call patient due to multiple visits, unable to reach patient at this time, unable to leave a voicemail for patient.
== END 2019-12-08 07:26 | disposition home or self-care (01) ==
LOC: ER 07:21
PROVIDERS: Emergency Provider Physician Assistant; Family Provider Family Medicine; PCP Family Medicine
DX: K59.00 Constipation, unspecified (principal)
CPT/HCPCS: 12345; 99281

== ENCOUNTER 2020-12-12 00:14 | Emergency (ER) | payer MEDICAID, SELFPAY ==
[2020-12-12 00:15] VITALS: BP 134/86; PULSE 108; RESP 17; TEMP 36.8; O2SAT 98; BMI 32.3
--- NOTE | 2020-12-12 00:43 | ED_ITS ---
HPI - Chest Pain General: Chief Complaint: Chest Pain Stated Complaint: chest pressure Time Seen by Provider: 12/12/20 00:21 Source: patient Mode of arrival: EMS Limitations: no limitations History of Present Illness: HPI narrative: Patient is a 30-year-old female who is well-known to our emergency department here for complaints of anxiety. Patient tells me she resides with her grandparents along with her children and states there is much stress in the household. Patient is also having a complaint of some chest discomfort. Patient again has been seen in our facility countless times for the same complaint. She has been diagnosed with unspecified tachycardia previously. complaint: chest discomfort Onset (ago): hour(s) Timing of current episode: episodic Prior episodes: Yes Onset: during rest Pain location: substernal Pain radiation: none Severity: mild Quality: aching Relieving factors: nothing Exacerbating factors: stress Associated symptoms: Reports other (anxiety ); Deny abdominal pain, dyspnea, fever(s), nausea, palpitations, syncope or vomiting Treatment prior to arrival: aspirin Risk Factors: Coronary artery disease risk factors: none Thoracic aortic dissection risk factors: none Related Data: On Oral Contraceptives: No Review of Systems Const: Denies: fever(s) or chills Eyes: Denies: change in vision or blurry vision Card: Reports: chest pain; Denies: palpitations, irregular heart rhythm, edema, lightheadedness, syncope, pre-syncope, dyspnea on exertion, orthopnea, leg pain with exertion or acrocyanosis Resp: Denies: dyspnea, productive cough or pain on inspiration GI: Denies: abdominal pain, nausea, vomiting, heartburn or diarrhea : Denies: dysuria Musc: Denies: neck pain, back pain or joint pain Skin/Breast: Denies: rash Neuro: Denies: headache(s), dizziness or confusion Psych: Reports: anxiety PFSH ED PFSH: Medical History (Updated 12/12/20 @ 00:55 by CARL Erickson) delivery delivered Intermittent palpitations Nonspecific chest pain Social History Smoking and tobacco status: never smoked Female Reproductive History: Date of last menstrual period: 11/17/19 Physical Exam Const: COMMON NORMALS: no acute distress, patient oriented x3, no limitations and alert Chest: COMMONS NORMALS: normal inspection of the chest OTHER: chest pain is reproducible with palpation of anterior chest wall Resp: COMMON NORMALS: normal respiratory effort and clear to auscultation bilaterally AUSCULTATION: clear to auscultation bilaterally Cardio: COMMON NORMALS: regular rate and regular rhythm RATE: regular rate RHYTHM: regular rhythm Neuro: COMMON NORMALS: patient oriented x3 SENSORIUM/ORIENTATION: Yes alert Psych: COMMON NORMALS: mental status grossly normal, cooperative, speech normal, activity/motor behavior normal, denies hallucinations, denies homicidal ideation and denies suicidal ideation APPEARANCE: Yes grossly normal ATTITUDE: Yes calm ACTIVITY/MOTOR BEHAVIOR: Yes appropriate eye contact SPEECH: Yes normal speech Course Vital Signs: Vital signs: Vital Signs Temperature 98.3 F 12/12/20 00:15 Pulse Rate 108 H 12/12/20 00:15 Respiratory Rate 17 12/12/20 00:15 Blood Pressure 134/86 12/12/20 00:15 Pulse Oximetry 98 12/12/20 00:15 MDM - Chest Pain MDM Narrative: Medical decision making narrative: Patient CXR and EKG are normal. Pain is reproducible with palpation. Patient will be given Vistaril for anxiety. Information will be placed with case management to get her information in regards to following up at [facility] [place] for her anxiety. Imaging Data^: CXR: My impression: NAD EKG Data^: EKG 1: EKG interpretation date: 12/12/20 EKG interpretation time: 00:22 Interpretation: Sinus tachycardia Rate [address] elevation or depression changes noted Signed off by Dr. Allen Discharge Plan Discharge Patient Disposition: Home Clinical Impression: Anxiety, Chest wall pain Condition: Stable Prescriptions: New Vistaril 50 mg capsule 50 mg PO Q8H PRN (Reason: anxiety) Qty: 20 RF: 0 Discontinued diphenhydramine HCl [NightTime Sleep Aid (diphen)] 25 mg capsule 25 mg PO DAILY PRN (Reason: Sleep) RF: 0 No Action melatonin 10 mg capsule 10 mg PO BEDTIME RF: 0 metoprolol succinate 25 mg Tablet Extended Release 24 Hr 12.5 mg PO BID RF: 0 Trintellix 10 mg Tablet 10 mg PO DAILY RF: 0 Miralax 17 gram/dose powder 17 gm PO DAILY Qty: 119 RF: 0 aspirin 325 mg Tablet 325 mg PO DAILY RF: 0 trazodone 50 mg Tablet 50 mg PO BEDTIME RF: 0 famotidine 20 mg Tablet 20 mg PO BEDTIME RF: 0 ondansetron HCl [Zofran] 4 mg tablet 4 mg PO QID PRN (Reason: nausea and vomiting) Qty: 14 RF: 0 naproxen [EC-Naprosyn] 500 mg tablet,delayed release (DR/EC) 500 mg PO BID PRN (Reason: pain) Qty: 20 RF: 0 Discharge Orders: Discharge ED (Routine); Ordered 12/12/20 Ordered By: Ana Alanis Referrals: Emory Fuentes MD [Primary Care Provider] - Patient Instructions: Anxiety (ED) Activity Restrictions/Additional Instructions: As we discussed case management should contact you next week to give you information in regards to following up with behavioral health care for your anxiety. Coding Level of Care Code ED Bow Making Machine Operator for Serina Chandler
--- NOTE | 2020-12-12 00:43 | XRR_ITS ---
PROCEDURE INFORMATION: Exam: XR Chest Exam date and time: 12/12/2020 12:45 AM Age: 30 years old Clinical indication: Pain; Shortness of breath; Patient HX: Chest pressure with SOB starting last night. ; Additional info: Chest pain TECHNIQUE: Imaging protocol: XR of the chest Views: 1 view. COMPARISON: CR XR chest 1V portable [id number] 11/27/2019 12:37 AM FINDINGS: Lungs: Unremarkable. No consolidation. Pleural spaces: Unremarkable. No pleural effusion. No pneumothorax. Heart/Mediastinum: Unremarkable. No cardiomegaly. Bones/joints: Unremarkable. XR/XR chest 1V portable [id number] IMPRESSION: No acute findings.
[2020-12-12] MEDS: hyDROXYzine 25 mg Capsule 50 MG PO (00:55)
[2020-12-12 01:10] VITALS: BP 125/78; PULSE 84; RESP 14; TEMP 36.9; O2SAT 98
--- NOTE | 2020-12-16 15:43 | DCPLANNER ---
therapy manager had message to speak with patient about getting services at [facility]. therapy manager spoke with patient and explained that patient would need to go to [facility] anytime Monday thru Monday from 7:30 - 3:00 to fill out initial paperwork, to turn in and get an initial assessment scheduled. therapy manager also asked patient if she had seen her primary care physician, patient stated that she had not seen her primary care in a while. therapy manager reminded patient that she should really follow up with her primary physician, because all of her discharge orders tell her to follow up with her primary care physician.
== END 2020-12-12 01:12 | disposition home or self-care (01) ==
PROVIDERS: Emergency Provider Physician Assistant; PCP Family Medicine
DX: R07.89 Other chest pain (principal); F41.9 Anxiety disorder, unspecified; Z79.82 Long term (current) use of aspirin
CPT/HCPCS: 71045; 99283

== ENCOUNTER 2020-12-12 03:39 | Emergency (ER) | payer MEDICAID, SELFPAY ==
[2020-12-12 03:50] VITALS: BP 131/86; PULSE 94; RESP 16; TEMP 36.7; O2SAT 96; BMI 30.2
--- NOTE | 2020-12-12 04:30 | ECG_ITS ---
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 Measurements Intervals [place] Rate: 101 P: 31 SD: 127 QRS: 5 QRSD: 93 T: 24 QT: 340 QTc: 441 Interpretive Statements SINUS TACHYCARDIA POSSIBLE RIGHT VENTRICULAR CONDUCTION DELAY [RSR (QR) IN V1/V2] POSSIBLE ANTERIOR MYOCARDIAL INFARCTION , OF INDETERMINATE AGE [30 ms Q WAVE IN V3/V4, OR R < 0.2 mV IN V4] Compared to ECG 12/01/2019 00:15:01 Myocardial infarct finding now present Sinus rhythm no longer present Electronically Signed On 12-12-2020 13:13:40 CDT by Fab Stephens M.D. [id number]
[2020-12-12] MEDS: LORazepam 2 mg Tablet PO (04:42)
--- NOTE | 2020-12-12 04:44 | W.ED.ANXIETY ---
HPI - Anxiety General: Chief Complaint: Anxiety Stated Complaint: cp Time Seen by Provider: 12/12/20 04:13 History of Present Illness: HPI narrative: 30-year-old female well-known to the ER. She presents with chest discomfort, likely related to anxiety. She was here earlier this morning with the same complaint. She had felt palpitations at home, followed by some chest discomfort. Her legs felt heavy. She was seen earlier and had a normal EKG and chest x-ray. With improvement, she was allowed to go to the waiting room. Her symptoms came back in the waiting room, so she re-presented to the ER. Currently, she is more calm. Associated symptoms: Reports chest pain, nausea and palpitations; Deny fever(s), headache(s) or vomiting Review of Systems Const: Denies: fever(s) Eyes: Denies: change in vision ENMT: Denies: odynophagia Card: Reports: chest pain and palpitations; Denies: irregular heart rhythm or edema Resp: Reports: dyspnea; Denies: productive cough, non-productive cough or wheezing GI: Reports: nausea; Denies: abdominal pain or vomiting : Denies: dysuria Musc: Reports: back pain; Denies: neck pain Skin/Breast: Denies: rash or erythema Neuro: Reports: dizziness; Denies: headache(s) or vertigo Psych: Reports: anxiety [facility] ED PFSH: Medical History (Updated 12/12/20 @ 05:30 by Ángel Allen DO) delivery delivered Intermittent palpitations Nonspecific chest pain Social History Smoking and tobacco status: never smoked Female Reproductive History: Date of last menstrual period: 11/17/19 Physical Exam Const: GENERAL APPEARANCE: well developed and anxious ORIENTATION/CONSCIOUSNESS: Yes oriented to person, Yes oriented to place and Yes oriented to time HENMT: COMMON NORMALS: normocephalic, external ears normal and Normal external nose present HEAD & SCALP: normocephalic FACE & SINUS: normal facial exam NOSE: Normal external nose present EXTERNAL EAR: Yes external ears normal Eye: COMMON NORMALS: Equal, round and reactive pupils present, EOMs intact bilaterally and conjunctivae normal EYELID: eyelids normal CONJUNCTIVA: Yes conjunctivae normal PUPIL: Yes Equal, round and reactive pupils present Neck/C-Spine: GENERAL: No tracheal deviation Chest: COMMONS NORMALS: normal inspection of the chest CHEST: Yes tenderness Resp: COMMON NORMALS: clear to auscultation bilaterally EFFORT & INSPECTION: No tachypneic, No respiratory distress, No retractions, No uses accessory muscles and No tracheal deviation AUSCULTATION: clear to auscultation bilaterally, no rhonchi, no wheezes and lung sounds not diminished Cardio: COMMON NORMALS: regular rate and regular rhythm RATE: regular rate RHYTHM: regular rhythm HEART SOUNDS: no murmurs PERIPHERAL PULSES: radial pulses present GI: INSPECTION: No abdominal distension AUSCULTATION: No Hyperactive bowel sounds present and No Hypoactive bowel sounds present PALPATION: No Tenderness to palpation present (GI), No Guarding due to palpation present (GI) and No Rigid due to palpation PERCUSSION: no dullness to percussion and no tympanic to percussion Neuro: SENSORIUM/ORIENTATION: Yes oriented to person, Yes oriented to place and Yes oriented to time Psych: COMMON NORMALS: mental status grossly normal Skin: COMMON NORMALS: no rashes or lesions noted GENERAL SKIN EXAM: no rashes or lesions noted Course Vital Signs: Vital signs: Vital Signs Temperature 98.1 F 12/12/20 03:50 Pulse Rate 94 12/12/20 03:50 Respiratory Rate 16 12/12/20 03:50 Blood Pressure 131/86 12/12/20 03:50 Pulse Oximetry 96 12/12/20 03:50 MDM - Anxiety MDM Narrative: Medical decision making narrative: 30-year-old female here earlier with the same complaint of chest pain with palpitations. Pain is reproducible on exam. Her white blood cell count 7. Her electrolytes are normal. Her troponin is 6. Her EKG is normal sinus rhythm with normal axis. Chest x-ray earlier this morning was negative. She will be allowed home. She was given 2 mg of oral Ativan here with improvement. Lab Data: Labs: Lab Results 12/12/20 12/12/20 12/12/20 Range/Units 04:45 04:45 04:45 WBC 7.0 (4.0-10.0) 10^3/ uL RBC 4.16 (4.1-5.3) 10^6/u L Hgb 13.2 (11.5-15.3) g/dL Hct 39.7 (37.0-47.0) % MCV 95.4 (81-99) fL MCH 31.7 (28.0-34.0) pg MCHC 33.2 (30.0-36.0) g/dL RDW 11.8 L (12.1-15.1) % Plt Count 310 (130-400) 10^3/c mm MPV 9.7 (7.4-10.4) fL Neut % (Auto) 51.5 % Lymph % (Auto) 38.2 % [place] % (Auto) 7.0 % Eos % (Auto) 2.3 % Baso % (Auto) 0.7 % Neut # (Auto) 3.61 (1.8-7.7) 10^3/u L Lymph # (Auto) 2.7 (0.8-4.8) 10^3/u L [place] # (Auto) 0.5 (0.2-0.9) 10^3/u L Eos # (Auto) 0.2 (0.0-0.8) 10^3/u L Baso # (Auto) 0.1 (0.0-0.1) 10^3/u L Nucleated RBC % (a uto) 0 % Nucleated RBCs # 0.0 /100WBC Sodium 143 (136-145) mmol/L Potassium 3.6 (3.5-5.1) mmol/L Chloride 106 (98-107) mmol/L Carbon Dioxide 26 (22-29) mmol/L Anion Gap 14.6 (5-19) BUN 7 (6-20) mg/dL Creatinine 0.7 (0.5-0.9) mg/dL GFR Calculation 98.9 (90-130) mL/min Glucose 100 (65-115) mg/dL Calculated Osmolal ity 294 (285-295) mOsm/k g Calcium 9.0 (8.5-10.5) mg/dL Total Bilirubin 0.4 (0.15-1.2) mg/dL AST 22 (0-32) U/L ALT 37 H (0-33) U/L Alkaline Phosphata se 94 (35-105) IU/L Troponin T Gen 5 n g/L 6 (0-10) ng/L Total Protein 7.5 (6.6-8.7) g/dL Albumin 4.6 (3.5-5.2) g/dL Globulin 2.9 (1.3-4.6) g/dL Discharge Plan Discharge Patient Disposition: Home Clinical Impression: Acute anxiety, Chest wall pain Condition: Stable Prescriptions: No Action melatonin 10 mg capsule 10 mg PO BEDTIME RF: 0 metoprolol succinate 25 mg Tablet Extended Release 24 Hr 12.5 mg PO BID RF: 0 Trintellix 10 mg Tablet 10 mg PO DAILY RF: 0 Miralax 17 gram/dose powder 17 gm PO DAILY Qty: 119 RF: 0 Vistaril 50 mg capsule 50 mg PO Q8H PRN (Reason: anxiety) Qty: 20 RF: 0 aspirin 325 mg Tablet 325 mg PO DAILY RF: 0 trazodone 50 mg Tablet 50 mg PO BEDTIME RF: 0 famotidine 20 mg Tablet 20 mg PO BEDTIME RF: 0 ondansetron HCl [Zofran] 4 mg tablet 4 mg PO QID PRN (Reason: nausea and vomiting) Qty: 14 RF: 0 naproxen [EC-Naprosyn] 500 mg tablet,delayed release (DR/EC) 500 mg PO BID PRN (Reason: pain) Qty: 20 RF: 0 Discharge Orders: Discharge ED (Routine); Ordered 12/12/20 Ordered By: Ángel Allen Referrals: Emory Fuentes MD [Primary Care Provider] - 4-7 days Discharge Diet: Advance as tolerated Discharge Activity: Resume usual activity Patient Instructions: Chest Pain (ED), Anxiety (ED) Coding Level of Care Code ED Inspector Poising for Chg Fwd Exam Comprehensive
[2020-12-12 04:54] LABS: Basophils # 0.1 10^3/uL (0.0-0.1); Basophils % 0.7 %; Eosinophils # 0.2 10^3/uL (0.0-0.8); Eosinophils % 2.3 %; Hematocrit 39.7 % (37.0-47.0); Hemoglobin 13.2 g/dL (11.5-15.3); Lymphocytes # 2.7 10^3/uL (0.8-4.8); Lymphocytes % 38.2 %; Mean Corpuscular HGB Conc 33.2 g/dL (30.0-36.0); Mean Corpuscular Hemoglobin 31.7 pg (28.0-34.0); Mean Corpuscular Volume 95.4 fL (81-99); Mean Platelet Volume 9.7 fL (7.4-10.4); Monocytes # 0.5 10^3/uL (0.2-0.9); Neutrophils # 3.61 10^3/uL (1.8-7.7); Neutrophils % 51.5 %; Nucleated Red Blood Cells % 0 %; Platelet Count 310 10^3/cmm (130-400); Red Blood Count 4.16 10^6/uL (4.1-5.3); Red Cell Distribution Width 11.8 % (12.1-15.1)
--- NOTE | 2020-12-12 05:05 | ECG_ITS ---
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 Measurements Intervals [place] Rate: 69 P: 6 MI: 149 QRS: 4 QRSD: 98 T: -6 QT: 407 QTc: 439 Interpretive Statements SINUS RHYTHM POSSIBLE LATERAL MYOCARDIAL INFARCTION , OF INDETERMINATE AGE [30 ms Q WAVE IN V3/V4, OR R < 0.2 mV IN V4] Compared to ECG 12/12/2020 00:22:40 Sinus tachycardia no longer present Electronically Signed On 12-12-2020 13:16:09 CDT by Fab Stephens M.D. [email or web address] [email or web address] Health Sciencemer[email or web address]/[id number]
[2020-12-12 05:16] LABS: Alanine Aminotransferase 37 U/L (0-33); Albumin Level 4.6 g/dL (3.5-5.2); Alkaline Phosphatase 94 IU/L (35-105); Anion Gap 14.6 (5-19); Aspartate Amino Transferase 22 U/L (0-32); Blood Urea Nitrogen 7 mg/dL (6-20); Carbon Dioxide 26 mmol/L (22-29); Chloride 106 mmol/L (98-107); Globulin 2.9 g/dL (1.3-4.6); Glomerular Filtration Rate 98.9 mL/min (90-130); Glucose 100 mg/dL (65-115); Osmolality Calculated 294 mOsm/kg (285-295); Potassium 3.6 mmol/L (3.5-5.1); Sodium 143 mmol/L (136-145); Total Bilirubin 0.4 mg/dL (0.15-1.2); Total Protein 7.5 g/dL (6.6-8.7)
[2020-12-12 05:18] LABS: Troponin T (5th) Once 6 ng/L (0-10)
[2020-12-12 06:01] VITALS: BP 95/66; PULSE 109; RESP 18; O2SAT 95
== END 2020-12-12 06:00 | disposition home or self-care (01) ==
PROVIDERS: Emergency Provider Emergency Medicine; PCP Family Medicine
DX: R07.89 Other chest pain (principal); F41.9 Anxiety disorder, unspecified; Z79.82 Long term (current) use of aspirin
CPT/HCPCS: 80053; 84484; 85025; 93005; 99283

== ENCOUNTER 2020-12-14 08:53 | Emergency (ER) | payer MEDICAID, SELFPAY ==
[2020-12-14 08:55] VITALS: BP 158/86; PULSE 102; RESP 16; TEMP 36.1; O2SAT 99; BMI 32.3
--- NOTE | 2020-12-14 09:07 | XRR_ITS ---
PROCEDURE INFORMATION: Exam: XR Chest Exam date and time: 12/14/2020 9:47 AM Age: 30 years old Clinical indication: Cough and dyspnea; Additional info: Dyspnea/cough TECHNIQUE: Imaging protocol: XR of the chest Views: 1 view. COMPARISON: CR (CHEST, ) 12/12/2020 12:41 AM FINDINGS: Lungs: Unremarkable. No consolidation. Pleural spaces: Unremarkable. No pleural effusion. No pneumothorax. Heart/Mediastinum: Unremarkable. No cardiomegaly. Bones/joints: Unremarkable. XR/XR chest 1V portable [id number] IMPRESSION: No acute findings.
--- NOTE | 2020-12-14 09:07 | ECG_ITS ---
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 Measurements Intervals [place] Rate: 105 P: 48 WI: 110 QRS: 1 QRSD: 97 T: 28 QT: 361 QTc: 478 Interpretive Statements SINUS TACHYCARDIA WITH SHORT WI INTERVAL INCOMPLETE RIGHT BUNDLE BRANCH BLOCK [90+ ms QRS DURATION, TERMINAL R IN V1/V2, 40+ ms S IN I/aVL/V4/V5/V6] ABNORMAL RHYTHM ECG Compared to ECG 12/12/2020 05:06:07 Short WI interval now present Incomplete right bundle-branch block now present Sinus rhythm no longer present Myocardial infarct finding no longer present Electronically Signed On 12-14-2020 19:15:12 CDT by Fab Stephens M.D. [id number] f
[2020-12-14 09:27] LABS: Basophils % 0.8 %; Eosinophils # 0.1 10^3/uL (0.0-0.8); Eosinophils % 2.3 %; Hematocrit 42.2 % (37.0-47.0); Hemoglobin 13.9 g/dL (11.5-15.3); Lymphocytes # 1.6 10^3/uL (0.8-4.8); Lymphocytes % 31.6 %; Mean Corpuscular HGB Conc 32.9 g/dL (30.0-36.0); Mean Platelet Volume 9.6 fL (7.4-10.4); Monocytes # 0.5 10^3/uL (0.2-0.9); Monocytes % 8.7 %; Neutrophils # 2.93 10^3/uL (1.8-7.7); Neutrophils % 56.4 %; Nucleated Red Blood Cells % 0 %; Platelet Count 281 10^3/cmm (130-400); Red Blood Count 4.35 10^6/uL (4.1-5.3); White Blood Count 5.2 10^3/uL (4.0-10.0)
[2020-12-14 09:28] LABS: ABG PCO2 41.2 mmHg (35-45); ABG PH Result 7.42 (7.35-7.45); Arterial Blood Gas Hematocrit 42.2 % (37-47); Base Excess ABG 1.7 mmol/L (-2.0-2.0); Blood Gas Allen Test Pos; Blood Gas Operator Identificat CAK; Blood Gas Sample Site Radial, left; Blood Gas Sample Type Arterial; Carboxyhemoglobin 0.4 %THgb (0.4-20.1); HCO3 ABG 26.5 mmol/L (22-26); HGB O2 Sat 95.6 % (95-100); Ionized Calcium Level - ABG 1.2 mmol/L (1.1-1.4); Methemoglobin 0.9 % (0.4-1.5); Oxygen Device ROOM AIR; PO2 ABG 83.8 mmHg (80.0-100.0); Potassium Level - ABG 3.8 mmol/L (3.5-5.0); Total Hemoglobin 13.8 g/dL (12-16)
[2020-12-14 09:30] VITALS: BP 158/86; PULSE 89; RESP 15; O2SAT 100
--- NOTE | 2020-12-14 09:32 | W.ED.CHESTPA ---
HPI - Chest Pain General: Chief Complaint: Chest Pain Stated Complaint: CHEST TIGHTNESS Time Seen by Provider: 12/14/20 08:57 History of Present Illness: HPI narrative: 30-year-old female presents emergency room with rapid heart rate and some chest discomfort and nausea some back pain and shortness of breath that she has had this on and off for a couple of days. She usually takes an anxiety pill for it and it resolves but is not been helping as much the last couple of days. MD complaint: chest discomfort Pertinent past history: other (Anxiety) Onset (ago): day(s) (2) Timing of current episode: episodic Prior episodes: Yes Onset: during rest Pain location: left chest Pain radiation: left arm Severity: moderate Quality: heaviness Relieving factors: rest and other (Antianxiety medicines) Exacerbating factors: stress Associated symptoms: Reports dyspnea, nausea, palpitations and sense of impending doom; Deny abdominal pain, diaphoresis, fever(s), leg edema, syncope or vomiting Treatment prior to arrival: other (Hydroxyzine) Review of Systems Const: Denies: fever(s) or diaphoresis ENMT: Denies: throat pain, ear or mastoid pain, nasal discharge or nasal congestion Card: Reports: palpitations; Denies: syncope Resp: Reports: dyspnea GI: Reports: nausea; Denies: abdominal pain or vomiting : Denies: flank pain, difficulty voiding, dysuria, urinary frequency or urinary urgency Skin/Breast: Denies: rash or pruritus [facility] ED PFSH: Medical History delivery delivered Intermittent palpitations Nonspecific chest pain Social History Smoking and tobacco status: never smoked Female Reproductive History: Date of last menstrual period: 11/17/19 Physical Exam Const: COMMON NORMALS: no acute distress GENERAL APPEARANCE: cooperative and comfortable ORIENTATION/CONSCIOUSNESS: Yes awake, Yes oriented to person, Yes oriented to place and Yes oriented to time HENMT: COMMON NORMALS: normocephalic, atraumatic and hearing grossly normal bilaterally HEAD & SCALP: normocephalic and atraumatic Neck/C-Spine: COMMON NORMALS: no JVD Resp: COMMON NORMALS: normal respiratory effort, No retractions, No use of accessory muscles and clear to auscultation bilaterally AUSCULTATION: clear to auscultation bilaterally Cardio: COMMON NORMALS: no JVD, regular rate, regular rhythm and No murmurs present (Cardio) RATE: regular rate RHYTHM: regular rhythm GI: COMMON NORMALS: Soft to palpation and No hepatosplenomegaly present AUSCULTATION: Yes normoactive bowel sounds PALPATION: Yes Soft to palpation, No Tenderness to palpation present (GI), No Guarding due to palpation present (GI) and Yes No hepatosplenomegaly present Extremity: COMMON NORMALS: normal to inspection, capillary refill normal, no clubbing, cyanosis or edema, no calf tenderness and no pedal edema Neuro: SENSORIUM/ORIENTATION: Yes oriented to person, Yes oriented to place and Yes oriented to time Skin: COMMON NORMALS: no rashes or lesions noted GENERAL SKIN EXAM: no rashes or lesions noted Course Vital Signs: Vital signs: Vital Signs Temperature 96.9 F L 12/14/20 08:55 Pulse Rate 89 12/14/20 09:30 Respiratory Rate 15 12/14/20 09:30 Blood Pressure 158/86 12/14/20 09:30 Pulse Oximetry 100 12/14/20 09:30 MDM - Chest Pain MDM Narrative: Medical decision making narrative: EKG showed sinus tachycardia initially after patient being her time meds her heart rate decreased into the 80s. She is comfortable is in normal sinus rhythm electronic rates of possible atrial flutter which do not believe is the case or identifiable P waves. She is having some numbness and tingling in her hands at times. When I went to do her EKG she actually hyperventilated briefly. Her troponin is normal.. Her description of symptoms does not sound particularly cardiac. Discussed there is suspect this may be more anxiety she tends to concur. She uses hydroxyzine as needed. She responded well to the Ativan. We will discharge her home however follow-up with Dr. Lazar. If she continues to have problems return. Lab Data: Labs: Lab Results 12/14/20 12/14/20 12/14/20 Range/Units 09:17 09:20 09:20 WBC 5.2 (4.0-10.0) 10^3/ uL RBC 4.35 (4.1-5.3) 10^6/u L Hgb 13.9 (11.5-15.3) g/dL Hct 42.2 (37.0-47.0) % MCV 97.0 (81-99) fL MCH 32.0 (28.0-34.0) pg MCHC 32.9 (30.0-36.0) g/dL RDW 12.0 L (12.1-15.1) % Plt Count 281 (130-400) 10^3/c mm MPV 9.6 (7.4-10.4) fL Neut % (Auto) 56.4 % Lymph % (Auto) 31.6 % [place] % (Auto) 8.7 % Eos % (Auto) 2.3 % Baso % (Auto) 0.8 % Neut # (Auto) 2.93 (1.8-7.7) 10^3/u L Lymph # (Auto) 1.6 (0.8-4.8) 10^3/u L [place] # (Auto) 0.5 (0.2-0.9) 10^3/u L Eos # (Auto) 0.1 (0.0-0.8) 10^3/u L Baso # (Auto) 0.0 (0.0-0.1) 10^3/u L Nucleated RBC % (a uto) 0 % Nucleated RBCs # 0.0 /100WBC Specimen Type Arterial Sample Site Radial, left ABG pH 7.42 (7.35-7.45) ABG pCO2 41.2 (35-45) mmHg ABG pO2 83.8 (80.0-100.0) mmH g ABG HCO3 26.5 H (22-26) mmol/L ABG O2 Saturation 97.0 ABG Base Excess 1.7 (-2.0-2.0) mmol/ L Bryn Test Pos A-a O2 Gradient 2.0 L (5-10) mmHg Hematocrit 42.2 (37-47) % Hgb O2 Saturation 95.6 (95-100) % Carboxyhemoglobin 0.4 (0.4-20.1) %THgb Methemoglobin 0.9 (0.4-1.5) % Total Hemoglobin 13.8 (12-16) g/dL Sodium 144.0 H 139 (131-143) mmol/L Potassium 3.8 3.8 (3.5-5.0) mmol/L Glucose 97.0 87 (70-115) mg/dL Ionized Calcium 1.2 (1.1-1.4) mmol/L O2 Delivery Device Room air FiO2 21.0 % Field Marketing Specialist ID Cak Chloride 101 (98-107) mmol/L Carbon Dioxide 27 (22-29) mmol/L Anion Gap 14.8 (5-19) BUN 16 (6-20) mg/dL Creatinine 0.6 (0.5-0.9) mg/dL GFR Calculation 118.2 (90-130) mL/min Calculated Osmolal ity 289 (285-295) mOsm/k g Calcium 9.2 (8.5-10.5) mg/dL Total Bilirubin 0.5 (0.15-1.2) mg/dL AST 22 (0-32) U/L ALT 41 H (0-33) U/L Alkaline Phosphata se 97 (35-105) IU/L Troponin T Baselin e (0-10) ng/L Total Protein 8.1 (6.6-8.7) g/dL Albumin 4.8 (3.5-5.2) g/dL Globulin 3.3 (1.3-4.6) g/dL 12/14/20 Range/Units 09:20 WBC (4.0-10.0) 10^3/ uL RBC (4.1-5.3) 10^6/u L Hgb (11.5-15.3) g/dL Hct (37.0-47.0) % MCV (81-99) fL MCH (28.0-34.0) pg MCHC (30.0-36.0) g/dL RDW (12.1-15.1) % Plt Count (130-400) 10^3/c mm MPV (7.4-10.4) fL Neut % (Auto) % Lymph % (Auto) % [place] % (Auto) % Eos % (Auto) % Baso % (Auto) % Neut # (Auto) (1.8-7.7) 10^3/u L Lymph # (Auto) (0.8-4.8) 10^3/u L [place] # (Auto) (0.2-0.9) 10^3/u L Eos # (Auto) (0.0-0.8) 10^3/u L Baso # (Auto) (0.0-0.1) 10^3/u L Nucleated RBC % (a uto) % Nucleated RBCs # /100WBC Specimen Type Sample Site ABG pH (7.35-7.45) ABG pCO2 (35-45) mmHg ABG pO2 (80.0-100.0) mmH g ABG HCO3 (22-26) mmol/L ABG O2 Saturation ABG Base Excess (-2.0-2.0) mmol/ L Bryn Test A-a O2 Gradient (5-10) mmHg Hematocrit (37-47) % Hgb O2 Saturation (95-100) % Carboxyhemoglobin (0.4-20.1) %THgb Methemoglobin (0.4-1.5) % Total Hemoglobin (12-16) g/dL Sodium (131-143) mmol/L Potassium (3.5-5.0) mmol/L Glucose (70-115) mg/dL Ionized Calcium (1.1-1.4) mmol/L O2 Delivery Device FiO2 % Field Marketing Specialist ID Chloride (98-107) mmol/L Carbon Dioxide (22-29) mmol/L Anion Gap (5-19) BUN (6-20) mg/dL Creatinine (0.5-0.9) mg/dL GFR Calculation (90-130) mL/min Calculated Osmolal ity (285-295) mOsm/k g Calcium (8.5-10.5) mg/dL Total Bilirubin (0.15-1.2) mg/dL AST (0-32) U/L ALT (0-33) U/L Alkaline Phosphata se (35-105) IU/L Troponin T Baselin e 6 (0-10) ng/L Total Protein (6.6-8.7) g/dL Albumin (3.5-5.2) g/dL Globulin (1.3-4.6) g/dL Discharge Plan Discharge Patient Disposition: Home Clinical Impression: Anxiety, Nonspecific chest pain Condition: Stable Prescriptions: No Action melatonin 10 mg capsule 10 mg PO BEDTIME RF: 0 metoprolol succinate 25 mg Tablet Extended Release 24 Hr 12.5 mg PO BID RF: 0 Trintellix 10 mg Tablet 10 mg PO DAILY RF: 0 Miralax 17 gram/dose powder 17 gm PO DAILY Qty: 119 RF: 0 Vistaril 50 mg capsule 50 mg PO Q8H PRN (Reason: anxiety) Qty: 20 RF: 0 aspirin 325 mg Tablet 325 mg PO DAILY RF: 0 trazodone 50 mg Tablet 50 mg PO BEDTIME RF: 0 famotidine 20 mg Tablet 20 mg PO BEDTIME RF: 0 ondansetron HCl [Zofran] 4 mg tablet 4 mg PO QID PRN (Reason: nausea and vomiting) Qty: 14 RF: 0 naproxen [EC-Naprosyn] 500 mg tablet,delayed release (DR/EC) 500 mg PO BID PRN (Reason: pain) Qty: 20 RF: 0 Discharge Orders: Discharge ED (Routine); Ordered 12/14/20 Ordered By: Dima Encinas Referrals: Emory Fuentes MD [Primary Care Provider] - Discharge Diet: Usual diet Discharge Activity: Resume usual activity Patient Instructions: Opioid Safety Coding Level of Care Code ED Jointer Machine Operator for [facility] Fwd Exam Comprehensive
[2020-12-14 09:57] LABS: Alanine Aminotransferase 41 U/L (0-33); Albumin Level 4.8 g/dL (3.5-5.2); Alkaline Phosphatase 97 IU/L (35-105); Anion Gap 14.8 (5-19); Aspartate Amino Transferase 22 U/L (0-32); Blood Urea Nitrogen 16 mg/dL (6-20); Calcium 9.2 mg/dL (8.5-10.5); Carbon Dioxide 27 mmol/L (22-29); Chloride 101 mmol/L (98-107); Globulin 3.3 g/dL (1.3-4.6); Glomerular Filtration Rate 118.2 mL/min (90-130); Glucose 87 mg/dL (65-115); Osmolality Calculated 289 mOsm/kg (285-295); Potassium 3.8 mmol/L (3.5-5.1); Sodium 139 mmol/L (136-145); Total Bilirubin 0.5 mg/dL (0.15-1.2); Total Protein 8.1 g/dL (6.6-8.7); Troponin(5th) Baseline 6 ng/L (0-10)
[2020-12-14] MEDS: LORazepam 2 mg/mL INJ 1 mL 1 MG IVP (10:08)
[2020-12-14 10:53] VITALS: BP 110/78; PULSE 94; RESP 18; O2SAT 100
== END 2020-12-14 10:56 | disposition home or self-care (01) ==
PROVIDERS: Emergency Provider Family Medicine; PCP Family Medicine
DX: R07.89 Other chest pain (principal); F41.9 Anxiety disorder, unspecified; Z79.82 Long term (current) use of aspirin
CPT/HCPCS: 36600; 71045; 80051; 80053; 82330; 82805; 84484; 85025; 93005; 96374; 99284; J2060

== ENCOUNTER 2020-12-15 13:07 | Emergency (ER) | payer MEDICAID, SELFPAY ==
[2020-12-15 13:15] VITALS: BP 114/87; PULSE 96; RESP 16; TEMP 36.5; O2SAT 98; BMI 31.8
--- NOTE | 2020-12-15 13:38 | XRR_ITS ---
PROCEDURE INFORMATION: Exam: XR Chest Exam date and time: 12/15/2020 1:43 PM Age: 30 years old Clinical indication: Patient HX: Chest pain radiating to left shoulder; Additional info: Cp TECHNIQUE: Imaging protocol: XR of the chest Views: 1 view. COMPARISON: CR XR chest 1V portable [id number] 12/14/2020 9:38 AM FINDINGS: Lungs: Unremarkable. No consolidation. Pleural spaces: Unremarkable. No pleural effusion. No pneumothorax. Heart/Mediastinum: Unremarkable. No cardiomegaly. Bones/joints: Unremarkable. XR/XR chest 1V portable [id number] IMPRESSION: No acute findings.
--- NOTE | 2020-12-15 13:39 | ECG_ITS ---
[facility] Test Date: 2020-12-15 Pat Name: Kathi Torres Department: Room: Gender: Female Commodity Director: : 1990 Requested By: Wes Corley I Order Number: [id number] Reading MD: TI CAIN Measurements Intervals [place] Rate: 98 P: 46 AL: 146 QRS: 2 QRSD: 84 T: 30 QT: 335 QTc: 428 Interpretive Statements SINUS RHYTHM WITH SINUS ARRHYTHMIA Compared to ECG 12/14/2020 09:02:55 Sinus tachycardia no longer present Short AL interval no longer present Incomplete right bundle-branch block no longer present Electronically Signed On 12-15-2020 20:16:44 CDT by TI CAIN [id number] f
[2020-12-15 13:45] LABS: Basophils % 0.6 %; Eosinophils # 0.2 10^3/uL (0.0-0.8); Eosinophils % 2.6 %; Hematocrit 42.4 % (37.0-47.0); Lymphocytes # 2.3 10^3/uL (0.8-4.8); Lymphocytes % 33.9 %; Mean Corpuscular Hemoglobin 31.8 pg (28.0-34.0); Mean Corpuscular Volume 96.4 fL (81-99); Mean Platelet Volume 9.6 fL (7.4-10.4); Monocytes # 0.6 10^3/uL (0.2-0.9); Monocytes % 9.1 %; Neutrophils % 53.7 %; Nucleated Red Blood Cells % 0 %; Platelet Count 318 10^3/cmm (130-400); Red Cell Distribution Width 11.9 % (12.1-15.1); White Blood Count 6.9 10^3/uL (4.0-10.0)
[2020-12-15 14:11] LABS: Alanine Aminotransferase 41 U/L (0-33); Albumin Level 4.6 g/dL (3.5-5.2); Alkaline Phosphatase 92 IU/L (35-105); Anion Gap 15.6 (5-19); Aspartate Amino Transferase 24 U/L (0-32); Blood Urea Nitrogen 12 mg/dL (6-20); C Reactive Protein 0.7 mg/L (0.0-4.9); Calcium 9.2 mg/dL (8.5-10.5); Carbon Dioxide 24 mmol/L (22-29); Chloride 103 mmol/L (98-107); Globulin 3.1 g/dL (1.3-4.6); Glomerular Filtration Rate 145.9 mL/min (90-130); Glucose 102 mg/dL (65-115); Lipase 39 U/L (13-60); Osmolality Calculated 288 mOsm/kg (285-295); Potassium 3.6 mmol/L (3.5-5.1); Sodium 139 mmol/L (136-145); Total Bilirubin 0.5 mg/dL (0.15-1.2); Total Protein 7.7 g/dL (6.6-8.7); Troponin(5th) Baseline 6 ng/L (0-10)
[2020-12-15 14:16] VITALS: BP 107/78; PULSE 81; RESP 16; O2SAT 99
[2020-12-15 15:08] VITALS: BP 111/78; PULSE 86; RESP 18; O2SAT 100
[2020-12-15 15:24] LABS: Add Urine Microscopic? YES; Bilirubin Urine Neg (Negative); Blood Urine 2+ (Negative); Glucose Urine UA Norm (Normal); Ketones Urine Negative (Negative); Leukocyte Esterase Urine Negative (Negative); Nitrate Urine Negative (Negative); Protein Urine Neg (Negative); Specific Gravity, Urine 1.015 (1.005-1.030); Urine Appearance SL Hazy (CLEAR); Urine Color Yellow (Yellow); Urobilinogen Urine 1 mg/dL (Negative); pH Urine 8 (5-7)
[2020-12-15 15:30] LABS: Add Urine Culture? No; Bacteria Urine 1+ /hpf; Squamous Epithelial Cell Urine 25-40 /hpf (0-5); WBC Urine 0-4 /hpf (0-5)
--- NOTE | 2020-12-15 15:39 | ECG_ITS ---
[facility] Test Date: 2020-12-15 Pat Name: Kathi Torres Department: Room: Gender: Female Automatic Operator: : 1990 Requested By: Wes Corley I Order Number: [id number] Reading MD: TI CAIN Measurements Intervals [place] Rate: 94 P: 47 MD: 141 QRS: 19 QRSD: 88 T: 31 QT: 351 QTc: 439 Interpretive Statements SINUS RHYTHM WITH SINUS ARRHYTHMIA Compared to ECG 12/15/2020 13:21:16 No significant changes Electronically Signed On 12-15-2020 20:18:27 CDT by TI CAIN [id number]
[2020-12-15 15:44] LABS: Troponin 5 2HR Delta 0 ABS# (0-10)
[2020-12-15 17:15] VITALS: BP 141/81; PULSE 104; RESP 16; O2SAT 100
[2020-12-15] MEDS: lidocaine 2% viscous 15 ML, aluminum-mag hydrox-simethicon 30 ML, sucralfate oral liq 1 GM PO (17:35)
--- NOTE | 2020-12-15 17:37 | W.ED.ARRPALP ---
HPI - Arrhythmia/Palpitations General: Chief Complaint: Arrhythmia/Palpitations Stated Complaint: HEART TIGHTNESS WITH RAPID HEART BEAT, SENT BY PCP Time Seen by Provider: 12/15/20 13:16 Source: patient and family (grandmother) Mode of arrival: ambulatory Limitations: no limitations History of Present Illness: HPI narrative: This 30 year old female who presents to the ED with complaints of heart racing and a pre-syncopal event while in her PCP's office. After being discharged from her PCP's office, she had this event and at the time she she was noted to be tachycardic so she was sent to the ED to be seen. She complains of mild left sided chest pain, palpitations, and feeling funny . She has been to the ED several times for similar events and has been investigated and no abnormalities. Her grandmother also states that the patient has issues with her left toenail. It was black and now has drainage that is yellowish. MD complaint: rapid heart beat and heart racing Onset (ago): minute(s) (30) Duration: constant Severity: moderate Context: occurred during rest Associated symptoms: Reports anxiety and syncope; Deny cough, diaphoresis, muscle cramps, nausea, paresthesias, pre-syncope, sense of impending doom, short of breath or vomiting Review of Systems General: Reports: 10 or more systems reviewed and unremarkable except in HPI and below Const: Denies: diaphoresis Card: Reports: syncope; Denies: pre-syncope GI: Denies: nausea or vomiting Musc: Denies: muscle cramps Psych: Reports: anxiety [facility] ED PFSH: Medical History delivery delivered Intermittent palpitations Nonspecific chest pain Social History Smoking and tobacco status: never smoked Female Reproductive History: Date of last menstrual period: 11/17/19 Physical Exam Const: COMMON NORMALS: no acute distress, average body habitus, patient oriented x3, no limitations, healthy appearing, alert and well nourished Eye: COMMON NORMALS: Equal, round and reactive pupils present, EOMs intact bilaterally, conjunctivae normal and no scleral icterus CONJUNCTIVA: Yes conjunctivae normal PUPIL: Yes Equal, round and reactive pupils present Neck/C-Spine: COMMON NORMALS: no meningeal signs and no JVD Resp: COMMON NORMALS: normal respiratory effort, No retractions, No use of accessory muscles, clear to auscultation bilaterally and percussion normal AUSCULTATION: clear to auscultation bilaterally PERCUSSION: percussion normal Cardio: COMMON NORMALS: no JVD, regular rate, regular rhythm, S1 normal heart sound present, S2 normal heart sound present, No gallops present (Cardio), No clicks present (Cardio), No murmurs present (Cardio), No rub (Cardio) and Peripheral pulses 2+ throughout RATE: regular rate RHYTHM: regular rhythm HEART SOUNDS: S1 normal heart sound present and S2 normal heart sound present PERIPHERAL PULSES: Peripheral pulses 2+ throughout GI: COMMON NORMALS: Normal to inspection, nondistended, normoactive bowel sounds present, Soft to palpation, non-tender, No hepatosplenomegaly present, no masses and no bruits PALPATION: Yes Soft to palpation and Yes No hepatosplenomegaly present Extremity: COMMON NORMALS: normal to inspection, full ROM, capillary refill normal, no calf tenderness and no pedal edema LEFT LOWER EXTREMITY: Yes foot & digits (left toenail mostly unattached to the nailbed with pus on the nailbed.) Neuro: COMMON NORMALS: patient oriented x3 SENSORIUM/ORIENTATION: Yes alert MENINGEAL SIGNS: Yes no meningeal signs Skin: COMMON NORMALS: no rashes or lesions noted, no wounds, turgor normal, no jaundice, no petechiae and no mottling GENERAL SKIN EXAM: no rashes or lesions noted and turgor normal Procedures Nail Trephination Time out: Yes Location (toes): first digit Sterile prep: betadine Method of drainage: other (toenail is mostly unattached to the nailbed, and the nail was easily removed using a forceps without difficulty.) Procedure successful: Yes Patient tolerated procedure: well Nerve Block Nerve Block 1: Time out performed: Yes Local Anesthetic: lidocaine 1% Amount of anesthesia used (mL): 3 Side: right Nerve Blocks: digital (left great toe) Procedure Successful: Yes Patient Tolerated Procedure: well Complications: none Course Reevaluation(s): Reevaluation #1: Discussed her lab and imaging findings with the patient and her grandmother. No acute findings, and negative HS troponin x 2. She has low cardiac risk factors with a HEART score of 0. Since she has intermittent tachycardia, advised that she get a holter monitor and a referral made to case management for holter monitor. They voiced understanding and were in agreement with the plan. After the conversation with the patient and her grandmother, the patient inexplicably had a syncopal episode in while lying in bed, her vital signs were unchanged. I proceeded lift her right arm above and over her face and her arm gently fell to the bed in a controlled manner and it deliberately avoided her face. This is most likely malingering or hysteria. She is still therefore discharged home. Time: 17:38 Vital Signs: Vital signs: Vital Signs Temperature 97.7 F 12/15/20 13:15 Pulse Rate 99 12/15/20 18:33 Respiratory Rate 16 12/15/20 18:33 Blood Pressure 99/75 12/15/20 18:33 Pulse Oximetry 99 12/15/20 18:33 MDM - Arrhythmia/Palpitations MDM Narrative: Medical decision making narrative: Patient who presented to the ED with chest pain, palpitations, and a presyncopal event which is likely behavioral. In the ED her evaluation was unremarkable and she is discharged home with an order for a holter monitor. Medical Records: Attestation: I reviewed the patient's medical records. Lab Data: Attestation: I reviewed the patient's lab results. Labs: Lab Results 12/15/20 12/15/20 12/15/20 Range/Units 12:42 12:42 12:42 WBC 6.9 (4.0-10.0) 10^3/ uL RBC 4.40 (4.1-5.3) 10^6/u L Hgb 14.0 (11.5-15.3) g/dL Hct 42.4 (37.0-47.0) % MCV 96.4 (81-99) fL MCH 31.8 (28.0-34.0) pg MCHC 33.0 (30.0-36.0) g/dL RDW 11.9 L (12.1-15.1) % Plt Count 318 (130-400) 10^3/c mm MPV 9.6 (7.4-10.4) fL Neut % (Auto) 53.7 % Lymph % (Auto) 33.9 % [place] % (Auto) 9.1 % Eos % (Auto) 2.6 % Baso % (Auto) 0.6 % Neut # (Auto) 3.70 (1.8-7.7) 10^3/u L Lymph # (Auto) 2.3 (0.8-4.8) 10^3/u L [place] # (Auto) 0.6 (0.2-0.9) 10^3/u L Eos # (Auto) 0.2 (0.0-0.8) 10^3/u L Baso # (Auto) 0.0 (0.0-0.1) 10^3/u L Nucleated RBC % (a uto) 0 % Nucleated RBCs # 0.0 /100WBC Sodium 139 (136-145) mmol/L Potassium 3.6 (3.5-5.1) mmol/L Chloride 103 (98-107) mmol/L Carbon Dioxide 24 (22-29) mmol/L Anion Gap 15.6 (5-19) BUN 12 (6-20) mg/dL Creatinine 0.5 (0.5-0.9) mg/dL GFR Calculation 145.9 H (90-130) mL/min Glucose 102 (65-115) mg/dL Calculated Osmolal ity 288 (285-295) mOsm/k g Calcium 9.2 (8.5-10.5) mg/dL Total Bilirubin 0.5 (0.15-1.2) mg/dL AST 24 (0-32) U/L ALT 41 H (0-33) U/L Alkaline Phosphata se 92 (35-105) IU/L Troponin T Baselin e 6 (0-10) ng/L Troponin T 120 Min ross (0-10) ng/L Delta Troponin T (0-10) ABS# C-Reactive Protein 0.7 (0.0-4.9) mg/L Total Protein 7.7 (6.6-8.7) g/dL Albumin 4.6 (3.5-5.2) g/dL Globulin 3.1 (1.3-4.6) g/dL Lipase 39 (13-60) U/L Urine Color (Yellow) Urine Appearance (CLEAR) Urine pH (5-7) Ur Specific Gravit y (1.005-1.030) Urine Protein (Negative) Urine Glucose (UA) (Normal) Urine Ketones (Negative) Urine Blood (Negative) Urine Nitrate (Negative) Urine Bilirubin (Negative) Urine Urobilinogen (Negative) mg/dL Ur Leukocyte Yoanna ase (Negative) Urine RBC (0-2) /hpf Urine WBC (0-5) /hpf Ur Squamous Epith Cells (0-5) /hpf Amorphous Sediment Urine Bacteria (NONE) /hpf 12/15/20 12/15/20 Range/Units 14:13 15:00 WBC (4.0-10.0) 10^3/ uL RBC (4.1-5.3) 10^6/u L Hgb (11.5-15.3) g/dL Hct (37.0-47.0) % MCV (81-99) fL MCH (28.0-34.0) pg MCHC (30.0-36.0) g/dL RDW (12.1-15.1) % Plt Count (130-400) 10^3/c mm MPV (7.4-10.4) fL Neut % (Auto) % Lymph % (Auto) % [place] % (Auto) % Eos % (Auto) % Baso % (Auto) % Neut # (Auto) (1.8-7.7) 10^3/u L Lymph # (Auto) (0.8-4.8) 10^3/u L [place] # (Auto) (0.2-0.9) 10^3/u L Eos # (Auto) (0.0-0.8) 10^3/u L Baso # (Auto) (0.0-0.1) 10^3/u L Nucleated RBC % (a uto) % Nucleated RBCs # /100WBC Sodium (136-145) mmol/L Potassium (3.5-5.1) mmol/L Chloride (98-107) mmol/L Carbon Dioxide (22-29) mmol/L Anion Gap (5-19) BUN (6-20) mg/dL Creatinine (0.5-0.9) mg/dL GFR Calculation (90-130) mL/min Glucose (65-115) mg/dL Calculated Osmolal ity (285-295) mOsm/k g Calcium (8.5-10.5) mg/dL Total Bilirubin (0.15-1.2) mg/dL AST (0-32) U/L ALT (0-33) U/L Alkaline Phosphata se (35-105) IU/L Troponin T Baselin e (0-10) ng/L Troponin T 120 Min ross 6.00 (0-10) ng/L Delta Troponin T 0 (0-10) ABS# C-Reactive Protein (0.0-4.9) mg/L Total Protein (6.6-8.7) g/dL Albumin (3.5-5.2) g/dL Globulin (1.3-4.6) g/dL Lipase (13-60) U/L Urine Color Yellow (Yellow) Urine Appearance Sl hazy (CLEAR) Urine pH 8 H (5-7) Ur Specific Gravit y 1.015 (1.005-1.030) Urine Protein Neg (Negative) Urine Glucose (UA) Norm (Normal) Urine Ketones Negative (Negative) Urine Blood 2+ H (Negative) Urine Nitrate Negative (Negative) Urine Bilirubin Neg (Negative) Urine Urobilinogen 1 H (Negative) mg/dL Ur Leukocyte Yoanna ase Negative (Negative) Urine RBC 5-10 H (0-2) /hpf Urine WBC 0-4 H (0-5) /hpf Ur Squamous Epith Cells 25-40 H (0-5) /hpf Amorphous Sediment Not Reportable Urine Bacteria 1+ H (NONE) /hpf Imaging Data^: CXR: Attestation: I personally reviewed and interpreted this imaging study as follows: Radiologist's impression: [address] [address] XRay Report Signed Patient: Kathi Torres #: [id number] : 1990Acct#:[id number] Age/Sex: 30 / FADM Date: 12/15/20 Loc: ERRoom/Bed: Attending Dr: Ordering Provider/Ordering MD: Wes Corley MD, [facility] Date of Service: 12/15/20 Procedure(s): XR chest 1V portable [id number] Accession Number(s): [id number] Report Number: [id number] PROCEDURE INFORMATION: Exam: XR Chest Exam date and time: 12/15/2020 1:43 PM Age: 30 years old Clinical indication: Patient HX: Chest pain radiating to left shoulder; Additional info: Cp TECHNIQUE: Imaging protocol: XR of the chest Views: 1 view. COMPARISON: CR XR chest 1V portable [id number] 12/14/2020 9:38 AM FINDINGS: Lungs: Unremarkable. No consolidation. Pleural spaces: Unremarkable. No pleural effusion. No pneumothorax. Heart/Mediastinum: Unremarkable. No cardiomegaly. Bones/joints: Unremarkable. XR/XR chest 1V portable [id number] IMPRESSION: No acute findings. Dictated By:Oumar Alcantar Signed By:Olga Alcantar Date/Time:12/15/201422 DD/ 20 EKG Data^: EKG 1: Attestation: I personally reviewed and interpreted this EKG as follows: EKG interpretation date: 12/15/20 EKG interpretation time: 13:21 Prior EKG tracings: available for review Interpretation: sinus rhythm HR 98 bpm normal axis No ST changes. Other EKG comments: Chest X-Ray 12/15/20 13:38 IMPRESSION: No acute findings. EKG 2: Attestation: I personally reviewed and interpreted this EKG as follows: EKG interpretation date: 12/15/20 EKG interpretation time: 16:32 Interpretation: sinus rhythm HR 94 bpm Normal axis no ST changes Other EKG comments: Chest X-Ray 12/15/20 13:38 IMPRESSION: No acute findings. Discharge Plan Discharge Patient Disposition: Home Clinical Impression: Palpitations, Non-cardiac chest pain, Paronychia due to ingrown nail Condition: Stable Prescriptions: New Antibiotic (bacitracin zinc) 500 unit/gram ointment 1 applic topical DAILY Qty: 14 RF: 0 No Action hydroxyzine pamoate [Vistaril] 50 mg capsule 50 mg PO Q8H PRN (Reason: anxiety) Qty: 20 RF: 0 diclofenac sodium 75 mg Tablet,Delayed Release (Dr/Ec) 75 mg PO BID PRN (Reason: Pain) RF: 0 aspirin 325 mg Tablet 325 mg PO DAILY RF: 0 Discharge Orders: Discharge ED (Routine); Ordered 12/15/20 Ordered By: Wes Corley Referrals: Emory Fuentes MD [Primary Care Provider] - 1-3 days Discharge Diet: Usual diet Discharge Activity: Increase activity as tolerated Patient Instructions: Palpitations (ED), Paronychia (ED), Ingrown Nail (ED), Noncardiac Chest Pain (ED) Activity Restrictions/Additional Instructions: Return for any new or worsening symptoms. Follow-up with your primary care provider within 3 days. You will be contacted to schedule an appointment to get a Holter monitor placed to check out the way your heart is beating. Clean your toe with hydrogen peroxide and water mixed together in equal amounts once a day then apply the antibiotic ointment to the left toe. Take the antibiotic as prescribed. Coding Level of Care Code ED Pharmaceutical Service Representative for Serina Chandler
[2020-12-15 18:33] VITALS: BP 99/75; PULSE 99; RESP 16; O2SAT 99
--- NOTE | 2020-12-17 09:57 | DCPLANNER ---
manager sports had message to schedule an outpatient halter monitor for patient with [facility]. manager sports faxed order to [facility], case packer will call for appointment information. Clinic will call and schedule appointment with patient.
--- NOTE | 2020-12-23 13:24 | DCPLANNER ---
Patient has a follow up appointment scheduled for Wednesday, December 30, 2020 at 1:00. Clinic will call patient with appointment information.
--- NOTE | 2020-12-23 13:32 | DCPLANNER ---
Patient has a follow up appointment at [facility] for Tuesday, December 29, 2020 at 1:00 for a sydnee monitor. Clinic will call patient with appointment information.
--- NOTE | 2020-12-30 12:49 | DCPLANNER ---
Patient had a follow up appointment scheduled for 12.29.20 with [facility] - patient did attend appointment.
== END 2020-12-15 18:35 | disposition home or self-care (01) ==
PROVIDERS: Emergency Provider Family Medicine; PCP Family Medicine
DX: R07.89 Other chest pain (principal); R00.2 Palpitations; L03.032 Cellulitis of left toe
CPT/HCPCS: 11730; 71045; 80053; 81001; 83690; 84484; 85025; 86140; 93005; 99283

== ENCOUNTER 2021-01-20 00:43 | Emergency (ER) | payer MEDICAID, SELFPAY ==
[2021-01-20 00:46] VITALS: BP 124/72; PULSE 77; RESP 19; TEMP 36.4; O2SAT 98; BMI 28.6
--- NOTE | 2021-01-20 00:57 | ED_ITS ---
HPI - Nausea/Vomiting/Diarrhea General: Chief complaint: Nausea/Vomiting/Diarrhea Stated complaint: N/V POST COVID SHOT Time Seen by Provider: 01/20/21 00:46 History of Present Illness: HPI Narrative: Patient is a 30-year-old female comes to the ED with nausea post Covid shot. Patient says at 11 AM this morning she received the COVID-19 vaccine. Patient says she has started developing some nausea and just felt a little off today. She denies any actual emesis but has felt nauseous. She said tonight while she was laying in bed she started developing some generalized shaking. Patient did say that she has a history of anxiety and thinks that some of the symptoms could be from that. Patient did get a dose of Zofran from EMS and she says that her nausea has resolved. Associated nausea: Yes Associated symtoms: Reports anxiety and nausea; Denies change in vision, chest pain, dysuria, fatigue, headache(s) or palpitations Review of Systems Const: Denies: fever(s), chills or fatigue Eyes: Denies: change in vision or eye discomfort ENMT: Denies: throat pain, odynophagia, nasal discharge or nasal congestion Card: Denies: chest pain, palpitations, edema, swelling of feet/ankles, dyspnea on exertion or orthopnea Resp: Denies: dyspnea, productive cough or non-productive cough GI: Reports: nausea; Denies: abdominal pain, vomiting, diarrhea, constipation or hematochezia : Denies: flank pain, dysuria or hematuria Musc: Denies: neck pain, back pain or extremity swelling Skin/Breast: Denies: rash or new lesions Neuro: Reports: involuntary movements (Generalized shaking of her extremities.); Denies: headache(s), numbness in extremities or weakness in extremities Psych: Reports: anxiety PFSH ED PFSH: Medical History delivery delivered Intermittent palpitations Nonspecific chest pain Social History Smoking and tobacco status: never smoked Female Reproductive History: Date of last menstrual period: 11/17/19 Physical Exam Const: COMMON NORMALS: no acute distress, patient oriented x3 and alert GENERAL APPEARANCE: cooperative and comfortable HENMT: COMMON NORMALS: normocephalic HEAD & SCALP: normocephalic MOUTH: Normal oral and palatal mucosa present THROAT: posterior oropharynx normal and uvula midline Eye: COMMON NORMALS: Equal, round and reactive pupils present PUPIL: Yes Equal, round and reactive pupils present Neck/C-Spine: COMMON NORMALS: supple GENERAL: Yes normal visual inspection Resp: COMMON NORMALS: normal respiratory effort, No retractions, No use of accessory muscles and clear to auscultation bilaterally AUSCULTATION: clear to auscultation bilaterally Cardio: COMMON NORMALS: regular rate, regular rhythm, S1 normal heart sound present, S2 normal heart sound present, No gallops present (Cardio), No clicks present (Cardio), No murmurs present (Cardio) and Peripheral pulses 2+ throughout RATE: regular rate RHYTHM: regular rhythm HEART SOUNDS: S1 normal heart sound present and S2 normal heart sound present PERIPHERAL PULSES: Peripheral pulses 2+ throughout GI: COMMON NORMALS: Normal to inspection, nondistended, normoactive bowel sounds present, Soft to palpation, non-tender and no masses PALPATION: Yes Soft to palpation : COMMON NORMALS: Yes no CVA tenderness BLADDER/KIDNEY EXAM: Yes no CVA tenderness Back/Pelvis: COMMON NORMALS: no CVA tenderness Extremity: COMMON NORMALS: normal to inspection Neuro: COMMON NORMALS: patient oriented x3 and moves all extremities SENSORIUM/ORIENTATION: Yes alert COORDINATION/BALANCE: dxzhjn-rq-[id number] test normal MOTOR EXAM: Motor fasciculations present (Symptoms would come and go. Symptoms worsened when I was focusing on them.) involving the distal upper extremity (right) and involving the distal lower extremity (right) COORDINATION: frpefp-mr-vgfa test normal Psych: MOOD & AFFECT: Yes anxious Skin: GENERAL SKIN EXAM: dry skin Course Reevaluation(s): Reevaluation #1: Patient was given some Ativan while here in the ED and her symptoms improved. Time: 02:00 Vital Signs: Vital signs: Vital Signs Temperature 98 F 01/20/21 01:35 Pulse Rate 68 01/20/21 01:35 Respiratory Rate 15 01/20/21 01:35 Blood Pressure 117/75 01/20/21 01:35 Pulse Oximetry 99 01/20/21 01:35 MDM - Nausea/Vomiting/Diarrhea MDM Narrative: Medical decision making narrative: Patient is a 30-year-old female comes to the ED with nausea not feeling well after COVID-19 shot. She started developing nausea after shot also was having some generalized extremity fasciculations. Patient had states she has a history of anxiety and thinks that some of her symptoms could be due to that. Exam showed a nontoxic appearing patient that did appear very anxious about Covid shot and possible side effects. Nausea had resolved from the Zofran that was given to her by EMS while in route to ED. Patient appears to have some fasciculations of the distal upper and lower extremity that seem to come and go and worsen when I am focusing on them. Patient was given some Ativan while here in the ED and her symptoms improved. Patient was discharged home and diagnosed with vaccination side effects, anxiety and nausea. She was told to go home and rest and I told her that she could have symptoms of malaise due to her vaccination within the first 24 to 48 hours and I told her to rest and take [id number] pain meds to help with symptoms. Return to ED precautions given. Follow-up with PCP in 7 to 10 days for reevaluation. Patient understood and agreed with plan. Discharge Plan Discharge Patient Disposition: Home Clinical Impression: Anxiety, Nausea Vaccination side effects Qualifiers: Encounter type: initial encounter Qualified Code(s): T50.Z95A - Adverse effect of other vaccines and biological substances, initial encounter Condition: Stable Prescriptions: No Action hydroxyzine pamoate [Vistaril] 50 mg capsule 50 mg PO Q8H PRN (Reason: anxiety) Qty: 20 RF: 0 diclofenac sodium 75 mg Tablet,Delayed Release (Dr/Ec) 75 mg PO BID PRN (Reason: Pain) RF: 0 Antibiotic (bacitracin zinc) 500 unit/gram ointment 1 applic topical DAILY Qty: 14 RF: 0 aspirin 325 mg Tablet 325 mg PO DAILY RF: 0 Discharge Orders: Discharge ED (Routine); Ordered 01/20/21 Ordered By: Eliezer Cooper Referrals: Emory Fuentes MD [Primary Care Provider] - Discharge Diet: Regular Discharge Activity: Increase activity as tolerated Activity Restrictions/Additional Instructions: Follow-up with medical provider as directed. Continue taking home medications as previously prescribed. Return to the ER or your medical provider if condition worsens. Please read and understand discharge instructions. Thank you for choosing [facility] for your healthcare needs today. Please realize this is an emergency room and that we are providing you with a medical screening exam and this may not be complete and all inclusive of all the testing and or work up that you may need to determine your ailment or severity of your illness. It is very important that you follow up as instructed or that you return to the Emergency Department should you have concerns or if your condition changes or worsens in any way. Coding Level of Care Code ED Control Panel Builder for Serina Fwd Exam Comprehensive
[2021-01-20] MEDS: LORazepam 2 mg/mL INJ 1 mL IM (01:21)
[2021-01-20 01:35] VITALS: BP 117/75; PULSE 68; RESP 15; TEMP 36.6; O2SAT 99
[2021-01-20] MEDS: lidocaine 2% viscous 15 ML, aluminum-mag hydrox-simethicon 30 ML, sucralfate oral liq 1 GM PO (02:24)
[2021-01-20 02:26] VITALS: BP 114/77; PULSE 82; RESP 15; TEMP 36.6; O2SAT 98
== END 2021-01-20 02:27 | disposition home or self-care (01) ==
PROVIDERS: Emergency Provider Physician Assistant; PCP Family Medicine
DX: R11.0 Nausea (principal); T50.B95A Adverse effect of other viral vaccines, initial encounter; F41.9 Anxiety disorder, unspecified; Z79.82 Long term (current) use of aspirin
CPT/HCPCS: 96372; 99283; J2060

== ENCOUNTER 2021-01-20 23:08 | Emergency (ER) | payer MEDICAID, SELFPAY ==
[2021-01-20 23:10] VITALS: BP 128/84; PULSE 114; RESP 15; TEMP 36.8; O2SAT 99; BMI 28.6
--- NOTE | 2021-01-20 23:35 | ED_ITS ---
HPI - General Adult General: Chief complaint: General Medical Stated complaint: TIRED Time Seen by Provider: 01/20/21 23:09 Source: patient and EMS Mode of arrival: EMS Limitations: no limitations History of Present Illness: HPI narrative: 30-year-old female who had a Covid shot 2 days ago and states she has been feeling ill since then. She was seen yesterday for nausea and vomiting. She states that today she just felt weak and has had more nausea no more vomiting. Her vital signs are normal. She denies any fever. Denies any worsening improving factors. Associated symptoms: Reports nausea and vomiting; Deny chest pain, dyspnea or rash Review of Systems Const: Denies: fever(s), chills, body aches or change in appetite Eyes: Denies: blurry vision or eye discomfort ENMT: Denies: throat pain or dental pain Card: Denies: chest pain Resp: Denies: dyspnea GI: Reports: nausea and vomiting : Denies: dysuria Musc: Denies: neck pain or back pain Skin/Breast: Denies: rash Neuro: Reports: weakness in extremities Psych: Denies: depression Sang/Lymph: Denies: easy bruising All/Imm: Denies: urticaria PFSH ED PFSH: Medical History delivery delivered Intermittent palpitations Nonspecific chest pain Social History Smoking and tobacco status: never smoked Female Reproductive History: Date of last menstrual period: 11/17/19 Physical Exam Const: COMMON NORMALS: no acute distress, patient oriented x3 and healthy appearing HENMT: COMMON NORMALS: normocephalic and atraumatic HEAD & SCALP: normocephalic and atraumatic Eye: COMMON NORMALS: Equal, round and reactive pupils present and EOMs intact bilaterally PUPIL: Yes Equal, round and reactive pupils present Neck/C-Spine: COMMON NORMALS: full ROM and supple Chest: COMMONS NORMALS: normal inspection of the chest and normal palpation of entire chest wall Resp: COMMON NORMALS: normal respiratory effort, No retractions, No use of accessory muscles and clear to auscultation bilaterally AUSCULTATION: clear to auscultation bilaterally Cardio: COMMON NORMALS: regular rate, regular rhythm and No murmurs present (Cardio) RATE: regular rate RHYTHM: regular rhythm GI: COMMON NORMALS: Normal to inspection, nondistended, normoactive bowel sounds present, Soft to palpation, non-tender and no masses PALPATION: Yes Soft to palpation Extremity: COMMON NORMALS: normal to inspection and full ROM Neuro: COMMON NORMALS: patient oriented x3, moves all extremities and no focal motor deficits Psych: COMMON NORMALS: mental status grossly normal, Normal thought process present and cooperative THOUGHT PROCESS: Normal thought process present Skin: COMMON NORMALS: no rashes or lesions noted and no wounds GENERAL SKIN EXAM: no rashes or lesions noted Course Vital Signs: Vital signs: Vital Signs Temperature 98.2 F 01/20/21 23:10 Pulse Rate 114 H 01/20/21 23:10 Respiratory Rate 15 01/20/21 23:10 Blood Pressure 128/84 01/20/21 23:10 Pulse Oximetry 99 01/20/21 23:10 MDM - General Adult MDM Narrative: Medical decision making narrative: Patient presents here with generalized weakness. She is well-appearing here and her blood work here is normal. She is stable for discharge and is to follow-up with PCP and return if worsening. Lab Data: Labs: Lab Results 01/20/21 01/20/21 Range/Units 23:57 23:57 WBC 8.5 (4.0-10.0) 10^3/ uL RBC 4.20 (4.1-5.3) 10^6/u L Hgb 13.4 (11.5-15.3) g/dL Hct 39.6 (37.0-47.0) % MCV 94.3 (81-99) fL MCH 31.9 (28.0-34.0) pg MCHC 33.8 (30.0-36.0) g/dL RDW 12.3 (12.1-15.1) % Plt Count 309 (130-400) 10^3/c mm MPV 10.2 (7.4-10.4) fL Neut % (Auto) 62.0 % Lymph % (Auto) 25.8 % [place] % (Auto) 9.4 % Eos % (Auto) 2.0 % Baso % (Auto) 0.7 % Neut # (Auto) 5.30 (1.8-7.7) 10^3/u L Lymph # (Auto) 2.2 (0.8-4.8) 10^3/u L [place] # (Auto) 0.8 (0.2-0.9) 10^3/u L Eos # (Auto) 0.2 (0.0-0.8) 10^3/u L Baso # (Auto) 0.1 (0.0-0.1) 10^3/u L Nucleated RBC % (a uto) 0 % Nucleated RBCs # 0.0 /100WBC Sodium 139 (136-145) mmol/L Potassium 3.5 (3.5-5.1) mmol/L Chloride 102 (98-107) mmol/L Carbon Dioxide 27 (22-29) mmol/L Anion Gap 13.5 (5-19) BUN 9 (6-20) mg/dL Creatinine 0.6 (0.5-0.9) mg/dL GFR Calculation 118.2 (90-130) mL/min Glucose 96 (65-115) mg/dL Calculated Osmolal ity 287 (285-295) mOsm/k g Calcium 9.2 (8.5-10.5) mg/dL Discharge Plan Discharge Patient Disposition: Home Clinical Impression: Weakness Condition: Stable Prescriptions: No Action hydroxyzine pamoate [Vistaril] 50 mg capsule 50 mg PO Q8H PRN (Reason: anxiety) Qty: 20 RF: 0 diclofenac sodium 75 mg Tablet,Delayed Release (Dr/Ec) 75 mg PO BID PRN (Reason: Pain) RF: 0 Antibiotic (bacitracin zinc) 500 unit/gram ointment 1 applic topical DAILY Qty: 14 RF: 0 aspirin 325 mg Tablet 325 mg PO DAILY RF: 0 Discharge Orders: Discharge ED (Routine); Ordered 01/21/21 Ordered By: Dequan Acuña Referrals: Emory Fuentes MD [Primary Care Provider] - 1-3 days Discharge Diet: Advance as tolerated Discharge Activity: Resume usual activity Patient Instructions: Weakness (ED) Coding Level of Care Code ED Subscription Agent for Serina Chandler
[2021-01-21 00:03] LABS: Basophils # 0.1 10^3/uL (0.0-0.1); Basophils % 0.7 %; Eosinophils # 0.2 10^3/uL (0.0-0.8); Hematocrit 39.6 % (37.0-47.0); Hemoglobin 13.4 g/dL (11.5-15.3); Lymphocytes # 2.2 10^3/uL (0.8-4.8); Lymphocytes % 25.8 %; Mean Corpuscular HGB Conc 33.8 g/dL (30.0-36.0); Mean Corpuscular Hemoglobin 31.9 pg (28.0-34.0); Mean Corpuscular Volume 94.3 fL (81-99); Mean Platelet Volume 10.2 fL (7.4-10.4); Monocytes # 0.8 10^3/uL (0.2-0.9); Monocytes % 9.4 %; Nucleated Red Blood Cells % 0 %; Platelet Count 309 10^3/cmm (130-400); Red Cell Distribution Width 12.3 % (12.1-15.1); White Blood Count 8.5 10^3/uL (4.0-10.0)
[2021-01-21] MEDS: sodium chloride 0.9% 1,000 ML 999 ML IV (00:03)
[2021-01-21 00:19] LABS: Anion Gap 13.5 (5-19); Blood Urea Nitrogen 9 mg/dL (6-20); Calcium 9.2 mg/dL (8.5-10.5); Carbon Dioxide 27 mmol/L (22-29); Chloride 102 mmol/L (98-107); Glomerular Filtration Rate 118.2 mL/min (90-130); Glucose 96 mg/dL (65-115); Osmolality Calculated 287 mOsm/kg (285-295); Potassium 3.5 mmol/L (3.5-5.1); Sodium 139 mmol/L (136-145)
[2021-01-21 00:58] VITALS: BP 104/63; PULSE 68; RESP 16; TEMP 36.6; O2SAT 99
--- NOTE | 2021-01-21 01:06 | PC.NURSE ---
Per pt request called [employer] for transportation, [employer] states pt uneligable for dc ride home.
[2021-01-21 01:22] VITALS: BP 128/70; PULSE 68; RESP 14; TEMP 36.7; O2SAT 99
== END 2021-01-21 01:23 | disposition home or self-care (01) ==
PROVIDERS: Emergency Provider Emergency Medicine; PCP Family Medicine
DX: R53.1 Weakness (principal); Z79.82 Long term (current) use of aspirin
CPT/HCPCS: 80048; 85025; 96360; 99283; J7030

== ENCOUNTER 2021-01-21 07:27 | Emergency (ER) | payer MEDICAID, SELFPAY ==
[2021-01-21 07:35] VITALS: BP 119/85; PULSE 85; RESP 18; TEMP 36.9; O2SAT 100; BMI 28.6
--- NOTE | 2021-01-21 07:35 | W.ED.GENADLT ---
HPI - General Adult General: Chief complaint: Psychiatric Symptoms Stated complaint: Pain in Head/Ears..Discharged Earlier Today Time Seen by Provider: 01/21/21 07:29 Source: patient Mode of arrival: ambulatory Limitations: no limitations History of Present Illness: HPI narrative: Patient is a 30-year-old female who presents to the ED yet again for nonspecific complaints that she feels might be related to her recent COVID vaccination. Patient has been seen here twice already in the past 24 hours for complaints of nausea/vomiting and weakness. Today she complains of a headache. She is worried she has developed one of those rare blood clots . She states she has a chronic history of nausea and vomiting mainly when she gets very anxious . Patient tells me she had plans to follow-up with her PCP but states I was already here (referring to the fact that she was still in the waiting room from her earlier discharge) so I figured it was silly to follow up with them when there are medical people here that can see me . She states she thinks the COVID shot messed with my spirituality . She states she got saved recently but now reports hearing Satan's voice. Patient flagged positive on her suicide screen in triage but she denies suicidal ideations to me. Relieving factors: none Exacerbating factors: none Associated symptoms: Reports headache(s) and nausea; Deny chest pain, confusion, dyspnea, malaise, rash or vomiting Treatments prior to arrival: none Review of Systems Const: Denies: fever(s), chills, body aches, change in appetite, fatigue or malaise Eyes: Denies: change in vision, blurry vision, photophobia, floaters or seeing flashes ENMT: Reports: ear or mastoid pain; Denies: throat pain, odynophagia, tinnitus, disequilibrium, nasal discharge, nasal congestion or nasal obstruction Card: Denies: chest pain Resp: Denies: dyspnea GI: Reports: nausea; Denies: abdominal pain, vomiting, hematemesis or change in stool character Musc: Denies: neck pain, back pain or joint pain Skin/Breast: Denies: rash Neuro: Reports: headache(s); Denies: numbness in extremities, weakness in extremities, sensory changes, dizziness, vertigo, confusion, Slurred speech present, difficulty communicating thoughts or seizure-like activity Psych: Reports: anxiety PFSH ED PFSH: Medical History delivery delivered Intermittent palpitations Nonspecific chest pain Social History Smoking and tobacco status: never smoked Female Reproductive History: Date of last menstrual period: 11/17/19 Physical Exam Const: COMMON NORMALS: no acute distress, average body habitus, patient oriented x3, no limitations, healthy appearing, alert and well nourished GENERAL APPEARANCE: cooperative ORIENTATION/CONSCIOUSNESS: Yes awake, Yes oriented to person, Yes oriented to place and Yes oriented to time HENMT: COMMON NORMALS: normocephalic and atraumatic HEAD & SCALP: normocephalic and atraumatic Neuro: RAVI COMA SCALE: document GCS findings Ravi coma scale eye opening: Spontaneous Ravi coma scale verbal response: Orientated [place] coma scale motor response: [place] commands [place] coma scale total score: 15 COMMON NORMALS: patient oriented x3, moves all extremities, no focal motor deficits, no sensory deficits noted and gait normal SENSORIUM/ORIENTATION: Yes alert, Yes oriented to person, Yes oriented to place and Yes oriented to time SPEECH: speech normal GAIT: Yes Normal gait present Psych: COMMON NORMALS: mental status grossly normal, Normal thought process present, cooperative, normal affect, speech normal, activity/motor behavior normal, denies homicidal ideation and denies suicidal ideation APPEARANCE: Yes grossly normal ATTITUDE: Yes calm ACTIVITY/MOTOR BEHAVIOR: Yes appropriate eye contact SPEECH: Yes normal speech MOOD & AFFECT: Yes euthymic mood THOUGHT PROCESS: Normal thought process present THOUGHT CONTENT: Yes Normal thought content present ATTENTION/CONCENTRATION: Yes attention grossly intact and Yes concentration grossly intact MEMORY/COGNITION: Yes memory grossly intact and Yes cognition grossly intact INSIGHT: Fair insight present (Psych) JUDGEMENT: Fair judgement present (Psych) Course Consultations: Consultation #1: Dr. Diaz-will come evaluate patient in ED Vital Signs: Vital signs: Vital Signs Temperature 98.4 F 01/21/21 07:35 Pulse Rate 85 01/21/21 07:35 Respiratory Rate 18 01/21/21 07:35 Blood Pressure 119/85 01/21/21 07:35 Pulse Oximetry 100 01/21/21 07:35 MDM - General Adult MDM Narrative: Medical decision making narrative: Patient is here for nonspecific complaints that she feels might be related to her recent COVID vaccination. She complains of a headache but she has no focal deficits, has not experienced any seizures, no complaints of visual changes, no signs/symptoms of intracranial hypertension. I don't feel like her voices of hearing Satan would be secondary to an encephalopathy. She has no thrombocytopenia. She is concerned about one of those rare blood clots but I feel this is extremely unlikely given the lack of the above symptoms and the fact that these have only been reported in 15 out of 8 million administered vaccinations. She flagged positive for suicidal ideations in triage but denied these to me. Nevertheless, psychiatry was consulted and evaluated patient in ED. Please refer to Dr. Diaz's note. CM will speak to her in regards to therapy/counseling. She already has established services at [facility] [place] although she is frequently a no show. Lab Data: Labs: Lab Results 01/21/21 01/21/21 01/21/21 Range/Units 07:32 08:09 08:09 WBC 6.8 (4.0-10.0) 10^3/ uL RBC 4.17 (4.1-5.3) 10^6/u L Hgb 13.3 (11.5-15.3) g/dL Hct 39.6 (37.0-47.0) % MCV 95.0 (81-99) fL MCH 31.9 (28.0-34.0) pg MCHC 33.6 (30.0-36.0) g/dL RDW 12.2 (12.1-15.1) % Plt Count 299 (130-400) 10^3/c mm MPV 9.7 (7.4-10.4) fL Neut % (Auto) 57.9 % Lymph % (Auto) 29.4 % [place] % (Auto) 9.2 % Eos % (Auto) 2.6 % Baso % (Auto) 0.6 % Neut # (Auto) 3.95 (1.8-7.7) 10^3/u L Lymph # (Auto) 2.0 (0.8-4.8) 10^3/u L [place] # (Auto) 0.6 (0.2-0.9) 10^3/u L Eos # (Auto) 0.2 (0.0-0.8) 10^3/u L Baso # (Auto) 0.0 (0.0-0.1) 10^3/u L Nucleated RBC % (a uto) 0 % Nucleated RBCs # 0.0 /100WBC Sodium 140 (136-145) mmol/L Potassium 3.9 (3.5-5.1) mmol/L Chloride 104 (98-107) mmol/L Carbon Dioxide 27 (22-29) mmol/L Anion Gap 12.9 (5-19) BUN 5 L (6-20) mg/dL Creatinine 0.5 (0.5-0.9) mg/dL GFR Calculation 145.9 H (90-130) mL/min Glucose 107 (65-115) mg/dL Calculated Osmolal ity 288 (285-295) mOsm/k g Calcium 8.9 (8.5-10.5) mg/dL Total Bilirubin 0.7 (0.15-1.2) mg/dL AST 23 (0-32) U/L ALT 36 H (0-33) U/L Alkaline Phosphata se 88 (35-105) IU/L Total Protein 7.2 (6.6-8.7) g/dL Albumin 4.6 (3.5-5.2) g/dL Globulin 2.6 (1.3-4.6) g/dL HCG, Qual (Negative) Salicylates < 0.3 L (3-10) mg/dL Urine Opiates Scre en Negative (Negative) ng/mL Acetaminophen < 5.0 L (10-30) ug/mL Ur Barbiturates Sc reen Negative (Negative) ng/mL Ur Phencyclidine S crn Negative (Negative) ng/mL Ur Amphetamines Sc reen Negative (Negative) ng/mL U Benzodiazepines Scrn Positive H (Negative) ng/mL Urine Cocaine Scre en Negative (Negative) ng/mL U Marijuana (THC) Screen Negative (Negative) ng/mL Ethyl Alcohol < 10 (0-10) mg/dL 01/21/21 Range/Units 08:09 WBC (4.0-10.0) 10^3/ uL RBC (4.1-5.3) 10^6/u L Hgb (11.5-15.3) g/dL Hct (37.0-47.0) % MCV (81-99) fL MCH (28.0-34.0) pg MCHC (30.0-36.0) g/dL RDW (12.1-15.1) % Plt Count (130-400) 10^3/c mm MPV (7.4-10.4) fL Neut % (Auto) % Lymph % (Auto) % [place] % (Auto) % Eos % (Auto) % Baso % (Auto) % Neut # (Auto) (1.8-7.7) 10^3/u L Lymph # (Auto) (0.8-4.8) 10^3/u L [place] # (Auto) (0.2-0.9) 10^3/u L Eos # (Auto) (0.0-0.8) 10^3/u L Baso # (Auto) (0.0-0.1) 10^3/u L Nucleated RBC % (a uto) % Nucleated RBCs # /100WBC Sodium (136-145) mmol/L Potassium (3.5-5.1) mmol/L Chloride (98-107) mmol/L Carbon Dioxide (22-29) mmol/L Anion Gap (5-19) BUN (6-20) mg/dL Creatinine (0.5-0.9) mg/dL GFR Calculation (90-130) mL/min Glucose (65-115) mg/dL Calculated Osmolal ity (285-295) mOsm/k g Calcium (8.5-10.5) mg/dL Total Bilirubin (0.15-1.2) mg/dL AST (0-32) U/L ALT (0-33) U/L Alkaline Phosphata se (35-105) IU/L Total Protein (6.6-8.7) g/dL Albumin (3.5-5.2) g/dL Globulin (1.3-4.6) g/dL HCG, Qual Negative (Negative) Salicylates (3-10) mg/dL Urine Opiates Scre en (Negative) ng/mL Acetaminophen (10-30) ug/mL Ur Barbiturates Sc reen (Negative) ng/mL Ur Phencyclidine S crn (Negative) ng/mL Ur Amphetamines Sc reen (Negative) ng/mL U Benzodiazepines Scrn (Negative) ng/mL Urine Cocaine Scre en (Negative) ng/mL U Marijuana (THC) Screen (Negative) ng/mL Ethyl Alcohol (0-10) mg/dL Discharge Plan Discharge Patient Disposition: Home 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 Qualifiers: Encounter type: initial encounter Qualified Code(s): T88.1XXA - Other complications following immunization, not elsewhere classified, initial encounter Condition: Stable Prescriptions: No Action hydroxyzine pamoate [Vistaril] 50 mg capsule 50 mg PO Q8H PRN (Reason: anxiety) Qty: 20 RF: 0 diclofenac sodium 75 mg Tablet,Delayed Release (Dr/Ec) 75 mg PO BID PRN (Reason: Pain) RF: 0 Antibiotic (bacitracin zinc) 500 unit/gram ointment 1 applic topical DAILY Qty: 14 RF: 0 aspirin 325 mg Tablet 325 mg PO DAILY RF: 0 Discharge Orders: Discharge ED (Routine); Ordered 01/21/21 Ordered By: Ana Alanis Referrals: Emory Fuentes MD [Primary Care Provider] - Coding Level of Care Code ED Clinical Molecular Geneticist for Chg Fwd Exam Expanded Problem Focused
--- NOTE | 2021-01-21 07:45 | PC.NURSE ---
Patient was brought back from the waiting room to treatment room 8 where she was placed under direct observation. Patients primary nurse changed patient into paper scrubs and removed all her personal belongings. Treatment room made psych safe. Patient placed under continuos direct observation. telemarketer supervisor and physician notified of patient being in the ER.
[2021-01-21 08:25] LABS: Basophils % 0.6 %; Eosinophils # 0.2 10^3/uL (0.0-0.8); Eosinophils % 2.6 %; Hematocrit 39.6 % (37.0-47.0); Hemoglobin 13.3 g/dL (11.5-15.3); Lymphocytes % 29.4 %; Mean Corpuscular HGB Conc 33.6 g/dL (30.0-36.0); Mean Corpuscular Hemoglobin 31.9 pg (28.0-34.0); Mean Platelet Volume 9.7 fL (7.4-10.4); Monocytes # 0.6 10^3/uL (0.2-0.9); Monocytes % 9.2 %; Neutrophils # 3.95 10^3/uL (1.8-7.7); Neutrophils % 57.9 %; Nucleated Red Blood Cells % 0 %; Platelet Count 299 10^3/cmm (130-400); Red Blood Count 4.17 10^6/uL (4.1-5.3); Red Cell Distribution Width 12.2 % (12.1-15.1); White Blood Count 6.8 10^3/uL (4.0-10.0)
[2021-01-21 08:35] LABS: HCG, Serum Qual Negative (Negative)
[2021-01-21 08:41] LABS: Alanine Aminotransferase 36 U/L (0-33); Albumin Level 4.6 g/dL (3.5-5.2); Alkaline Phosphatase 88 IU/L (35-105); Anion Gap 12.9 (5-19); Aspartate Amino Transferase 23 U/L (0-32); Blood Urea Nitrogen 5 mg/dL (6-20); Calcium 8.9 mg/dL (8.5-10.5); Carbon Dioxide 27 mmol/L (22-29); Chloride 104 mmol/L (98-107); Globulin 2.6 g/dL (1.3-4.6); Glomerular Filtration Rate 145.9 mL/min (90-130); Glucose 107 mg/dL (65-115); Osmolality Calculated 288 mOsm/kg (285-295); Potassium 3.9 mmol/L (3.5-5.1); Sodium 140 mmol/L (136-145); Total Bilirubin 0.7 mg/dL (0.15-1.2); Total Protein 7.2 g/dL (6.6-8.7)
[2021-01-21 08:50] LABS: Acetaminophen < 5.0 ug/mL (10-30); Alcohol Level < 10 mg/dL (0-10); Salicylate < 0.3 mg/dL (3-10)
[2021-01-21 09:07] LABS: Amphetamines Screen Urine Negative (Negative); Barbiturates Screen Urine Negative (Negative); Benzodiazepines Screen Urine Positive (Negative); Cocaine Screen Urine Negative (Negative); Opiate Screen Urine Negative (Negative); PCP Screen Urine Negative (Negative); THC Screen Urine Negative (Negative)
--- NOTE | 2021-01-21 09:35 | P.CONIM_ITS ---
Providers/Reason for Consult Consulting Physican/Specialty*: Flavia Diaz DO Reason for Consult*: Anxiety, reported past self-harm on screener Requesting Physcian: Ana Alanis PA-C Primary Care Provider: Emory Fuentes MD Psych Consult HPI History of Present Illness Kathi Torres is a 30 year old female with history of anxiety presenting to the emergency department with vague somatic complaints related to recent COVID shot. Patient has history of multiple presentations to the emergency department over the past couple days as well as past frequent emergency department visits for anxiety related symptoms and was subsequently followed outpatient for anxiety by psychology. Not currently on any medication for anxiety. Patient reports multiple stressors to include recent separation from her as well as friction with her grandmother who she has been living with since separation from her . Patient continues to be unemployed. Patient's interview was difficult as patient was being selectively mute and only writing responses on a piece of paper with the majority of information being gathered from chart review. Patient currently denying any suicidal ideation or thoughts about self-harm. Patient currently denying any depressive symptoms. Negative psychiatric review of systems. Patient did not her head and affirmative stating that she would be open to outpatient counseling targeting development of more adaptive coping strategies given her ongoing life stressors. Review of Systems General: Reports: Other (Patient selectively mute, only providing written responses, otherwise neg) PFSH NPU PFSH: Medical History delivery delivered Intermittent palpitations Nonspecific chest pain Social History Smoking and tobacco status: never smoked Other Psychiatric History: Other Psychiatric History: Patient reports remote history of psychiatric hospitalization but states she does not recall when but reports that it was greater than 5 years ago Patient states that she has been seen by outpatient psychiatry and is most recently been followed by psychology for anxiety symptoms Reports remote history of self-harm as well as suicidal gesture in the past by overdose attempt which she states was greater than 5 years ago Mental Status Exam MSE Comments: Appears stated age, overweight, wearing hospital scrubs, plastic bag between her legs and appears to have been spitting up and it, calm, minimally cooperative and selectively mute but providing written responses and head nods to questions Psychomotor activity is neither increased nor decreased, no agitation Speech, selectively mute Does not provide stated mood but shakes her head stating that she feels okay and denies any current complaints, constricted affect, not labile Alert and oriented to person, place, time, situation Intellectual functioning is difficult to determine given patient's selective interaction, appears to be average based on written responses, vocabulary Memory and concentration difficult to determine given limited interview Thought process, written communication appears to be linear, goal-directed, no flight of ideas, no looseness of associations Thought content, no stated delusions, does not appear to be attending to any internal stimuli, no suicidal homicidal ideation Insight and judgment appear to be fair Vitals/I&O/Wt Last Vital Signs Temp 98.4 F 01/21/21 07:35 Pulse 85 01/21/21 07:35 Resp 18 01/21/21 07:35 BP 119/85 01/21/21 07:35 Pulse Ox 100 01/21/21 07:35 Weight last 48 hrs Weight 64.41 kg A&P Assessment and plan (1) Anxiety: Status: Acute Additional A&P Information Patient with multiple presentation emergency department related to somatic complaints which the patient attributes to recent COVID shot but also reports multiple stressors causing anxiety and likely contributing to somatic complaints. Patient not currently on medications addressing anxiety symptoms but is open to outpatient counseling and states that she had reported past self- harm but no recent or current suicidal ideation or thoughts about self-harm. Inpatient psychiatric hospitalization is not indicated at this time; outpatient counseling targeting the development of more adaptive coping strategies is the least restrictive and appropriate level of care at this time No acute or emergent psychotropic medication is indicated at this time RECOMMEND patient follow-up outpatient counseling/therapy Attestations NPU Medical Necessity Statement*: outpatient counseling targeting the development of more adaptive coping strategies is the least restrictive and appropriate level of care at this time Time Spent in Patient Care: Greater than 35 minutes (>than 50% of time spent in counselling and/or direct pt care on unit) . Coding Level of Care Code Acute Blood Bank Technician for Serina Chandler Diagnoses Anxiety F41.9
== END 2021-01-21 09:52 | disposition home or self-care (01) ==
PROVIDERS: Emergency Provider Physician Assistant; PCP Family Medicine
DX: T88.1XXA Other complications following immunization, not elsewhere classified, initial encounter (principal); R44.0 Auditory hallucinations; Z79.82 Long term (current) use of aspirin
CPT/HCPCS: 80053; 80306; 80307; 84703; 85025; 99284

== ENCOUNTER 2021-01-23 10:50 | Emergency (ER) | payer MEDICAID, SELFPAY ==
[2021-01-23 10:52] VITALS: BP 109/85; PULSE 94; RESP 18; TEMP 36.9; O2SAT 99; BMI 28.6
--- NOTE | 2021-01-23 10:55 | XRR_ITS ---
PROCEDURE INFORMATION: Exam: XR Chest Exam date and time: 01/23/2021 11:25 AM Age: 30 years old Clinical indication: Left-sided chest pain; Additional info: Near syncope TECHNIQUE: Imaging protocol: XR of the chest. Views: 1 view. COMPARISON: CR XR chest 1V portable [id number] 12/15/2020 1:49 PM FINDINGS: Lungs: Unremarkable. No consolidation. Pleural spaces: Unremarkable. No pleural effusion. No pneumothorax. Heart/Mediastinum: Unremarkable. No cardiomegaly. Bones/joints: Unremarkable. XR/XR chest 1V portable [id number] IMPRESSION: No acute findings.
--- NOTE | 2021-01-23 10:56 | ECG_ITS ---
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 Measurements Intervals [place] Rate: 80 P: 18 NM: 138 QRS: 4 QRSD: 97 T: 21 QT: 346 QTc: 401 Interpretive Statements SINUS RHYTHM WITH SINUS ARRHYTHMIA POSSIBLE RIGHT VENTRICULAR CONDUCTION DELAY [RSR (QR) IN V1/V2] Compared to ECG 12/15/2020 16:32:30 No significant changes Electronically Signed On 01-24-2021 12:08:02 CDT by Nikki Zelaya M.D. [id number]
--- NOTE | 2021-01-23 11:02 | ED_ITS ---
HPI - General Adult General: Chief complaint: General Medical Stated complaint: GENERAL WEAKNESS Time Seen by Provider: 01/23/21 10:51 Source: patient and EMS Mode of arrival: EMS Limitations: no limitations History of Present Illness: HPI narrative: Kathi is a very nice 30-year-old female who comes in complaining of chest pain, headache, shortness of breath and flulike symptoms. Patient states she is been around other people in her family have similar symptoms. Of all her symptoms at this time she states the chest pain and headache are the worst. She is unaware of any fevers. Patient has been vaccinated against Covid. The patient states this really honestly feels more like an anxiety attack and she felt like she was going to pass out so she called EMS. EMS reports stable vital signs in route without any problems. Patient denies any complaints or concerns at this time she is feeling better but she still has somewhat of a headache. She has had similar symptoms in the past and has passed out but she wanted to prevent that from happening today and that is why she came to the hospital. Associated symptoms: Reports chest pain and palpitations; Deny dyspnea, headache(s), nausea, rash, syncope or vomiting Review of Systems Const: Reports: body aches and fatigue; Denies: fever(s) Eyes: Denies: change in vision or blurry vision ENMT: Denies: throat pain, hoarseness or swelling of lips/tongue Card: Reports: chest pain, palpitations and pre-syncope; Denies: syncope or dyspnea on exertion Resp: Denies: dyspnea, productive cough, non-productive cough, wheezing, change in phlegm color or hemoptysis GI: Denies: abdominal pain, nausea, vomiting or diarrhea : Denies: flank pain, dysuria, urinary frequency or urinary urgency Musc: Denies: neck pain, back pain or extremity pain Skin/Breast: Denies: rash or pruritus Neuro: Denies: headache(s), numbness in extremities, weakness in extremities or dizziness Sang/Lymph: Denies: easy bruising, easy bleeding, petechiae or purpura All/Imm: Denies: urticaria or throat swelling PFSH ED PFSH: Medical History delivery delivered Intermittent palpitations Nonspecific chest pain Social History (Reviewed 01/23/21 @ 11:06 by Sarah Velez Smoking and tobacco status: never smoked Female Reproductive History: Date of last menstrual period: 11/17/19 Physical Exam Const: COMMON NORMALS: no acute distress, patient oriented x3, no limitations and alert GENERAL APPEARANCE: cooperative HENMT: COMMON NORMALS: normocephalic, atraumatic, external ears normal, EAC's normal and Normal external nose present HEAD & SCALP: normal to inspection, normocephalic and atraumatic FACE & SINUS: normal facial exam and face symmetric NOSE: Normal external nose present and Normal nares present EXTERNAL EAR: Yes external ears normal EXTERNAL AUDITORY CANAL: EAC's normal MOUTH: Normal oral and palatal mucosa present, lip normal and tongue normal Eye: COMMON NORMALS: Equal, round and reactive pupils present and conjunctivae normal GENERAL EYE: appearance normal, both eyes and all related structures ALIGNMENT: Yes alignment normal PERIORBITAL: periorbital findings normal EYELID: eyelids normal CONJUNCTIVA: Yes conjunctivae normal SCLERA: sclerae normal PUPIL: Yes Equal, round and reactive pupils present Neck/C-Spine: COMMON NORMALS: full ROM, no lymphadenopathy, supple, no meningeal signs and no JVD GENERAL: Yes normal visual inspection and Yes trachea midline Chest: COMMONS NORMALS: normal inspection of the chest and normal palpation of entire chest wall Resp: COMMON NORMALS: normal respiratory effort, No retractions, No use of accessory muscles and clear to auscultation bilaterally EFFORT & INSPECTION: Yes able to speak in complete sentences and Yes symmetric chest movement AUSCULTATION: clear to auscultation bilaterally, no crackles, no rales, no rhonchi and no wheezes Cardio: COMMON NORMALS: no JVD, regular rate, regular rhythm, S1 normal heart sound present and S2 normal heart sound present RATE: regular rate RHYTHM: regular rhythm HEART SOUNDS: S1 normal heart sound present, S2 normal heart sound present, no click, no gallops, no murmurs and no rubs GI: COMMON NORMALS: Soft to palpation and No hepatosplenomegaly present PALPATION: Yes Soft to palpation, No Tenderness to palpation present (GI), No Guarding due to palpation present (GI), No Rigid due to palpation, Yes No hepatosplenomegaly present, No Hernia present, No Palpable mass present and No Pulsatile mass present : COMMON NORMALS: Yes no CVA tenderness BLADDER/KIDNEY EXAM: Yes no CVA tenderness EXTERNAL FEMALE EXAM: No Hernia present Back/Pelvis: COMMON NORMALS: no CVA tenderness, thoracic and lumbar spine normal to inspection, no thoracic nor lumbar tenderness and thoraco-lumbar ROM normal Extremity: COMMON NORMALS: normal to inspection, full ROM, capillary refill normal, no joint enlargement, no clubbing, cyanosis or edema and no calf tenderness Neuro: COMMON NORMALS: patient oriented x3, CN's II-XII intact bilaterally, moves all extremities, no focal motor deficits and no sensory deficits noted SENSORIUM/ORIENTATION: Yes alert MENINGEAL SIGNS: Yes no meningeal signs SPEECH: speech normal Psych: COMMON NORMALS: mental status grossly normal, Normal thought process present, cooperative, normal affect, speech normal and activity/motor behavior normal SPEECH: Yes normal speech THOUGHT PROCESS: Normal thought process present Skin: COMMON NORMALS: no rashes or lesions noted, turgor normal, no jaundice, no petechiae and no mottling GENERAL SKIN EXAM: no rashes or lesions noted and turgor normal Course Vital Signs: Vital signs: Vital Signs Temperature 98.4 F 01/23/21 10:52 Pulse Rate 97 01/23/21 11:31 Respiratory Rate 18 01/23/21 11:31 Blood Pressure 118/84 01/23/21 11:31 Pulse Oximetry 98 01/23/21 11:31 MDM - General Adult MDM Narrative: Medical decision making narrative: Kathi is a nice 30-year-old female who comes in with chest pain, headache, shortness of breath and generalized weakness. She felt like she was going to pass out. She states that she has had the symptoms in the past with anxiety. Patient's work-up here is unremarkable. Specifically her EKG reveals no sign of Coqwy-Natiafaxn-Wlibo syndrome, obstructed AV pathway, bifascicular block, Brugada syndrome, Dsty-Pmdptg-Mbqiam syndrome, epsilon wave, or longer short QT syndrome. The patient has been ambulatory without difficulty. Her headache is improved. At this time I believe she is safe for discharge. Patient agrees to return should her symptoms change or worsen. I see no sign of aortic dissection, acute coronary syndrome, subarachnoid hemorrhage, or any other complaint that is life- threatening at this time. Lab Data: Attestation: I reviewed the patient's lab results. Labs: Lab Results 01/23/21 01/23/21 01/23/21 Range/Units 11:11 11:11 11:11 WBC 5.5 (4.0-10.0) 10^3/ uL RBC 4.17 (4.1-5.3) 10^6/u L Hgb 13.1 (11.5-15.3) g/dL Hct 39.5 (37.0-47.0) % MCV 94.7 (81-99) fL MCH 31.4 (28.0-34.0) pg MCHC 33.2 (30.0-36.0) g/dL RDW 12.2 (12.1-15.1) % Plt Count 272 (130-400) 10^3/c mm MPV 9.6 (7.4-10.4) fL Neut % (Auto) 57.2 % Lymph % (Auto) 29.8 % [place] % (Auto) 9.6 % Eos % (Auto) 2.5 % Baso % (Auto) 0.5 % Neut # (Auto) 3.14 (1.8-7.7) 10^3/u L Lymph # (Auto) 1.6 (0.8-4.8) 10^3/u L [place] # (Auto) 0.5 (0.2-0.9) 10^3/u L Eos # (Auto) 0.1 (0.0-0.8) 10^3/u L Baso # (Auto) 0.0 (0.0-0.1) 10^3/u L Nucleated RBC % (a uto) 0 % Nucleated RBCs # 0.0 /100WBC Sodium 140 (136-145) mmol/L Potassium 4.0 (3.5-5.1) mmol/L Chloride 105 (98-107) mmol/L Carbon Dioxide 25 (22-29) mmol/L Anion Gap 14.0 (5-19) BUN 14 (6-20) mg/dL Creatinine 0.6 (0.5-0.9) mg/dL GFR Calculation 118.2 (90-130) mL/min Glucose 104 (65-115) mg/dL Calculated Osmolal ity 291 (285-295) mOsm/k g Calcium 9.2 (8.5-10.5) mg/dL Magnesium 2.1 (1.7-2.3) mg/dL Total Bilirubin 0.5 (0.15-1.2) mg/dL AST 21 (0-32) U/L ALT 34 H (0-33) U/L Alkaline Phosphata se 80 (35-105) IU/L Troponin T Baselin e (0-10) ng/L Total Protein 6.9 (6.6-8.7) g/dL Albumin 4.6 (3.5-5.2) g/dL Globulin 2.3 (1.3-4.6) g/dL TSH 0.91 (0.27-4.20) uIU/ mL HCG, Qual Negative (Negative) Urine Color (Yellow) Urine Appearance (CLEAR) Urine pH (5-7) Ur Specific Gravit y (1.005-1.030) Urine Protein (Negative) Urine Glucose (UA) (Normal) Urine Ketones (Negative) Urine Blood (Negative) Urine Nitrate (Negative) Urine Bilirubin (Negative) Urine Urobilinogen (Negative) mg/dL Ur Leukocyte Yoanna ase (Negative) Urine RBC (0-2) /hpf Urine WBC (0-5) /hpf Ur Squamous Epith Cells (0-5) /hpf Amorphous Sediment Urine Bacteria (NONE) /hpf Urine Mucus /hpf Urine Opiates Scre en (Negative) ng/mL Ur Barbiturates Sc reen (Negative) ng/mL Ur Phencyclidine S crn (Negative) ng/mL Ur Amphetamines Sc reen (Negative) ng/mL U Benzodiazepines Scrn (Negative) ng/mL Urine Cocaine Scre en (Negative) ng/mL U Marijuana (THC) Screen (Negative) ng/mL Ethyl Alcohol < 10 (0-10) mg/dL 01/23/21 01/23/21 01/23/21 Range/Units 11:11 11:34 11:34 WBC (4.0-10.0) 10^3/ uL RBC (4.1-5.3) 10^6/u L Hgb (11.5-15.3) g/dL Hct (37.0-47.0) % MCV (81-99) fL MCH (28.0-34.0) pg MCHC (30.0-36.0) g/dL RDW (12.1-15.1) % Plt Count (130-400) 10^3/c mm MPV (7.4-10.4) fL Neut % (Auto) % Lymph % (Auto) % [place] % (Auto) % Eos % (Auto) % Baso % (Auto) % Neut # (Auto) (1.8-7.7) 10^3/u L Lymph # (Auto) (0.8-4.8) 10^3/u L [place] # (Auto) (0.2-0.9) 10^3/u L Eos # (Auto) (0.0-0.8) 10^3/u L Baso # (Auto) (0.0-0.1) 10^3/u L Nucleated RBC % (a uto) % Nucleated RBCs # /100WBC Sodium (136-145) mmol/L Potassium (3.5-5.1) mmol/L Chloride (98-107) mmol/L Carbon Dioxide (22-29) mmol/L Anion Gap (5-19) BUN (6-20) mg/dL Creatinine (0.5-0.9) mg/dL GFR Calculation (90-130) mL/min Glucose (65-115) mg/dL Calculated Osmolal ity (285-295) mOsm/k g Calcium (8.5-10.5) mg/dL Magnesium (1.7-2.3) mg/dL Total Bilirubin (0.15-1.2) mg/dL AST (0-32) U/L ALT (0-33) U/L Alkaline Phosphata se (35-105) IU/L Troponin T Baselin e 6 (0-10) ng/L Total Protein (6.6-8.7) g/dL Albumin (3.5-5.2) g/dL Globulin (1.3-4.6) g/dL TSH (0.27-4.20) uIU/ mL HCG, Qual (Negative) Urine Color Straw (Yellow) Urine Appearance Sl hazy (CLEAR) Urine pH 7 (5-7) Ur Specific Gravit y 1.005 (1.005-1.030) Urine Protein Neg (Negative) Urine Glucose (UA) Norm (Normal) Urine Ketones Negative (Negative) Urine Blood 2+ H (Negative) Urine Nitrate Negative (Negative) Urine Bilirubin Neg (Negative) Urine Urobilinogen Norm (Negative) mg/dL Ur Leukocyte Yoanna ase Trace H (Negative) Urine RBC 0-4 H (0-2) /hpf Urine WBC 0-4 H (0-5) /hpf Ur Squamous Epith Cells 5-10 H (0-5) /hpf Amorphous Sediment Not Reportable Urine Bacteria 2+ H (NONE) /hpf Urine Mucus Trace /hpf Urine Opiates Scre en Negative (Negative) ng/mL Ur Barbiturates Sc reen Negative (Negative) ng/mL Ur Phencyclidine S crn Negative (Negative) ng/mL Ur Amphetamines Sc reen Negative (Negative) ng/mL U Benzodiazepines Scrn Negative (Negative) ng/mL Urine Cocaine Scre en Negative (Negative) ng/mL U Marijuana (THC) Screen Negative (Negative) ng/mL Ethyl Alcohol (0-10) mg/dL Imaging Data^: CXR: My impression: No acute cardiopulmonary findings. EKG Data^: EKG 1: Attestation: I personally reviewed and interpreted this EKG as follows: Computer generated interpretation: EKG at 1127 -normal sinus rhythm with mild sinus arrhythmia at 80 beats a minute, left axis deviation, normal intervals, incomplete right bundle branch block, no acute ST or T wave changes. Discharge Plan Discharge Patient Disposition: Home Clinical Impression: Near syncope, Anxiety Condition: Stable Prescriptions: No Action hydroxyzine pamoate [Vistaril] 50 mg capsule 50 mg PO Q8H PRN (Reason: anxiety) Qty: 20 RF: 0 diclofenac sodium 75 mg Tablet,Delayed Release (Dr/Ec) 75 mg PO BID PRN (Reason: Pain) RF: 0 bacitracin zinc [Antibiotic (bacitracin zinc)] 500 unit/gram ointment 1 applic topical DAILY Qty: 14 RF: 0 aspirin 325 mg Tablet 325 mg PO PRN RF: 0 ChlorTabs 4 mg Tablet 4 mg PO PRN RF: 0 Flovent 44 mcg/actuation Hfa Aerosol Inhaler 2 puff INHALATION BID PRN (Reason: Shortness Of Breath) RF: 0 Lexapro 10 mg Tablet 10 mg PO DAILY RF: 0 divalproex 250 mg Tablet Extended Release 24 Hr 250 mg PO BEDTIME RF: 0 Discharge Orders: Discharge ED (Routine); Ordered 01/23/21 Ordered By: Sarah Day Referrals: Emory Fuentes MD [Primary Care Provider] - 1-3 days Discharge Diet: Usual diet Discharge Activity: Increase activity as tolerated Patient Instructions: Near Syncope (ED) Activity Restrictions/Additional Instructions: Please return to the ER immediately for any of the signs or symptoms listed on your discharge instruction sheets, worsening/changing of your symptoms, you are not getting better as quickly as expected, or for ANY other cause or concerns. If you develop feelings of chest pain, shortness of breath, that she may pass out or do pass out or have any other concerns please return to the ER immediately for recheck. Be certain to follow-up Dr. Fuentes in the next 1 to 2 days for recheck. Coding Level of Care Code ED Assistant Technician for Serina Fwd Exam Comprehensive
[2021-01-23 11:17] LABS: Basophils % 0.5 %; Eosinophils # 0.1 10^3/uL (0.0-0.8); Eosinophils % 2.5 %; Hematocrit 39.5 % (37.0-47.0); Hemoglobin 13.1 g/dL (11.5-15.3); Lymphocytes # 1.6 10^3/uL (0.8-4.8); Lymphocytes % 29.8 %; Mean Corpuscular HGB Conc 33.2 g/dL (30.0-36.0); Mean Corpuscular Hemoglobin 31.4 pg (28.0-34.0); Mean Corpuscular Volume 94.7 fL (81-99); Mean Platelet Volume 9.6 fL (7.4-10.4); Monocytes # 0.5 10^3/uL (0.2-0.9); Monocytes % 9.6 %; Neutrophils # 3.14 10^3/uL (1.8-7.7); Neutrophils % 57.2 %; Nucleated Red Blood Cells % 0 %; Platelet Count 272 10^3/cmm (130-400); Red Blood Count 4.17 10^6/uL (4.1-5.3); Red Cell Distribution Width 12.2 % (12.1-15.1); White Blood Count 5.5 10^3/uL (4.0-10.0)
[2021-01-23] MEDS: acetaminophen 500 mg Tablet 1000 MG PO (11:30)
[2021-01-23] MEDS: sodium chloride 0.9% 1,000 ML 999 ML IV (11:30)
[2021-01-23 11:31] VITALS: BP 118/84; PULSE 97; RESP 18; O2SAT 98
[2021-01-23 11:32] LABS: HCG, Serum Qual Negative (Negative)
[2021-01-23 11:42] LABS: Troponin(5th) Baseline 6 ng/L (0-10)
[2021-01-23 11:48] LABS: Glucose Urine UA Norm (Normal); Ketones Urine Negative (Negative); Protein Urine Neg (Negative); Specific Gravity, Urine 1.005 (1.005-1.030); Urine Appearance SL Hazy (CLEAR); Urine Color Straw (Yellow); pH Urine 7 (5-7)
[2021-01-23 11:49] LABS: Add Urine Culture? Yes; Add Urine Microscopic? YES; Bacteria Urine 2+ /hpf; Bilirubin Urine Neg (Negative); Blood Urine 2+ (Negative); Leukocyte Esterase Urine Trace (Negative); Mucus Urine TRACE /hpf; Nitrate Urine Negative (Negative); RBC Urine 0-4 /hpf (0-2); Urobilinogen Urine Norm (Negative); WBC Urine 0-4 /hpf (0-5)
[2021-01-23 11:50] LABS: Amphetamines Screen Urine Negative (Negative); Barbiturates Screen Urine Negative (Negative); Benzodiazepines Screen Urine Negative (Negative); Cocaine Screen Urine Negative (Negative); Opiate Screen Urine Negative (Negative); PCP Screen Urine Negative (Negative); THC Screen Urine Negative (Negative)
[2021-01-23 11:55] LABS: Alanine Aminotransferase 34 U/L (0-33); Albumin Level 4.6 g/dL (3.5-5.2); Alkaline Phosphatase 80 IU/L (35-105); Aspartate Amino Transferase 21 U/L (0-32); Blood Urea Nitrogen 14 mg/dL (6-20); Calcium 9.2 mg/dL (8.5-10.5); Carbon Dioxide 25 mmol/L (22-29); Chloride 105 mmol/L (98-107); Globulin 2.3 g/dL (1.3-4.6); Glomerular Filtration Rate 118.2 mL/min (90-130); Glucose 104 mg/dL (65-115); Magnesium 2.1 mg/dL (1.7-2.3); Osmolality Calculated 291 mOsm/kg (285-295); Sodium 140 mmol/L (136-145); Thyroid Stimulating Hormone 0.91 uIU/mL (0.27-4.20); Total Bilirubin 0.5 mg/dL (0.15-1.2); Total Protein 6.9 g/dL (6.6-8.7)
[2021-01-23 11:56] LABS: Alcohol Level < 10 mg/dL (0-10)
[2021-01-23 12:23] VITALS: BP 117/76; PULSE 94; RESP 24; O2SAT 100
== END 2021-01-23 12:48 | disposition home or self-care (01) ==
PROVIDERS: Emergency Provider Emergency Medicine; PCP Family Medicine
DX: R55 Syncope and collapse (principal); F41.9 Anxiety disorder, unspecified; Z79.82 Long term (current) use of aspirin
CPT/HCPCS: 71045; 80053; 80306; 80307; 81001; 83735; 84443; 84484; 84703; 85025; 87086; 93005; 96360; 99284; J7030

== ENCOUNTER 2021-01-25 19:54 | Emergency (ER) | payer MEDICAID, SELFPAY ==
[2021-01-25 20:43] VITALS: BP 122/82; PULSE 91; RESP 15; TEMP 36.8; O2SAT 98; BMI 28.8
--- NOTE | 2021-01-25 21:36 | W.ED.GENADLT ---
HPI - General Adult General: Chief complaint: Vaginal Bleeding Stated complaint: abnormal vaginal bleeding Time Seen by Provider: 01/25/21 21:01 Source: patient Mode of arrival: ambulatory Limitations: no limitations History of Present Illness: HPI narrative: 30-year-old female is well-known to the ER states she been having vaginal bleeding over the last 5 days. States she is also been have abdominal cramping. She denies any fevers. States pain is currently 2 out of 10. Denies any worsening or improving factors. Denies any vaginal discharge. Associated symptoms: Deny chest pain, dyspnea, headache(s) or rash Review of Systems Const: Denies: fever(s), chills, body aches or change in appetite Eyes: Denies: blurry vision or eye discomfort ENMT: Denies: throat pain or dental pain Card: Denies: chest pain Resp: Denies: dyspnea GI: Reports: abdominal pain : Reports: vaginal bleeding Musc: Denies: neck pain or back pain Skin/Breast: Denies: rash Neuro: Denies: headache(s) Psych: Denies: depression Sang/Lymph: Denies: easy bruising All/Imm: Denies: urticaria PFSH ED PFSH: Medical History delivery delivered Intermittent palpitations Nonspecific chest pain Social History Smoking and tobacco status: never smoked Female Reproductive History: Date of last menstrual period: 11/17/19 Physical Exam Const: COMMON NORMALS: no acute distress, patient oriented x3 and healthy appearing HENMT: COMMON NORMALS: normocephalic and atraumatic HEAD & SCALP: normocephalic and atraumatic Eye: COMMON NORMALS: Equal, round and reactive pupils present and EOMs intact bilaterally PUPIL: Yes Equal, round and reactive pupils present Neck/C-Spine: COMMON NORMALS: full ROM and supple Chest: COMMONS NORMALS: normal inspection of the chest and normal palpation of entire chest wall Resp: COMMON NORMALS: normal respiratory effort, No retractions, No use of accessory muscles and clear to auscultation bilaterally AUSCULTATION: clear to auscultation bilaterally Cardio: COMMON NORMALS: regular rate, regular rhythm and No murmurs present (Cardio) RATE: regular rate RHYTHM: regular rhythm GI: COMMON NORMALS: Normal to inspection, nondistended, normoactive bowel sounds present, Soft to palpation, non-tender and no masses PALPATION: Yes Soft to palpation Extremity: COMMON NORMALS: normal to inspection and full ROM Neuro: COMMON NORMALS: patient oriented x3, moves all extremities and no focal motor deficits Psych: COMMON NORMALS: mental status grossly normal, Normal thought process present and cooperative THOUGHT PROCESS: Normal thought process present Skin: COMMON NORMALS: no rashes or lesions noted and no wounds GENERAL SKIN EXAM: no rashes or lesions noted Course Vital Signs: Vital signs: Vital Signs Temperature 98.0 F 01/25/21 21:38 Pulse Rate 88 01/25/21 21:38 Respiratory Rate 18 01/25/21 21:38 Blood Pressure 132/84 01/25/21 21:38 Pulse Oximetry 97 01/25/21 21:38 MDM - General Adult MDM Narrative: Medical decision making narrative: Patient presents with vaginal bleeding likely from her menstruation. Her hemoglobin here is negative. Her is negative. She is well-appearing here and is stable for discharge. She is to follow-up with PCP and return if worsening. Lab Data: Labs: Lab Results 01/25/21 01/25/21 Range/Units 21:50 21:50 WBC 9.4 (4.0-10.0) 10^3/ uL RBC 4.25 (4.1-5.3) 10^6/u L Hgb 13.6 (11.5-15.3) g/dL Hct 40.4 (37.0-47.0) % MCV 95.1 (81-99) fL MCH 32.0 (28.0-34.0) pg MCHC 33.7 (30.0-36.0) g/dL RDW 12.3 (12.1-15.1) % Plt Count 342 (130-400) 10^3/c mm MPV 9.3 (7.4-10.4) fL Neut % (Auto) 48.5 % Lymph % (Auto) 37.3 % [place] % (Auto) 9.8 % Eos % (Auto) 3.4 % Baso % (Auto) 0.9 % Neut # (Auto) 4.53 (1.8-7.7) 10^3/u L Lymph # (Auto) 3.5 (0.8-4.8) 10^3/u L [place] # (Auto) 0.9 (0.2-0.9) 10^3/u L Eos # (Auto) 0.3 (0.0-0.8) 10^3/u L Baso # (Auto) 0.1 (0.0-0.1) 10^3/u L Nucleated RBC % (a uto) 0 % Nucleated RBCs # 0.0 /100WBC HCG, Qual Negative (Negative) Discharge Plan Discharge Patient Disposition: Home Clinical Impression: Vaginal bleeding Condition: Stable Prescriptions: No Action hydroxyzine pamoate [Vistaril] 50 mg capsule 50 mg PO Q8H PRN (Reason: anxiety) Qty: 20 RF: 0 diclofenac sodium 75 mg Tablet,Delayed Release (Dr/Ec) 75 mg PO BID PRN (Reason: Pain) RF: 0 bacitracin zinc [Antibiotic (bacitracin zinc)] 500 unit/gram ointment 1 applic topical DAILY Qty: 14 RF: 0 aspirin 325 mg Tablet 325 mg PO PRN RF: 0 ChlorTabs 4 mg Tablet 4 mg PO PRN RF: 0 Flovent 44 mcg/actuation Hfa Aerosol Inhaler 2 puff INHALATION BID PRN (Reason: Shortness Of Breath) RF: 0 Lexapro 10 mg Tablet 10 mg PO DAILY RF: 0 divalproex 250 mg Tablet Extended Release 24 Hr 250 mg PO BEDTIME RF: 0 Discharge Orders: Discharge ED (Routine); Ordered 01/25/21 Ordered By: Dequan Acuña Referrals: Emory Fuentes MD [Primary Care Provider] - 4-7 days Discharge Diet: Advance as tolerated Discharge Activity: Resume usual activity Patient Instructions: Menstruation (ED) Coding Level of Care Code ED Outside Food Server for [employer] Fwd Exam Comprehensive
[2021-01-25 21:38] VITALS: BP 132/84; PULSE 88; RESP 18; TEMP 36.7; O2SAT 97
[2021-01-25 21:56] LABS: Basophils # 0.1 10^3/uL (0.0-0.1); Basophils % 0.9 %; Eosinophils # 0.3 10^3/uL (0.0-0.8); Eosinophils % 3.4 %; Hematocrit 40.4 % (37.0-47.0); Hemoglobin 13.6 g/dL (11.5-15.3); Lymphocytes # 3.5 10^3/uL (0.8-4.8); Lymphocytes % 37.3 %; Mean Corpuscular HGB Conc 33.7 g/dL (30.0-36.0); Mean Corpuscular Volume 95.1 fL (81-99); Mean Platelet Volume 9.3 fL (7.4-10.4); Monocytes # 0.9 10^3/uL (0.2-0.9); Monocytes % 9.8 %; Neutrophils # 4.53 10^3/uL (1.8-7.7); Neutrophils % 48.5 %; Nucleated Red Blood Cells % 0 %; Platelet Count 342 10^3/cmm (130-400); Red Blood Count 4.25 10^6/uL (4.1-5.3); Red Cell Distribution Width 12.3 % (12.1-15.1); White Blood Count 9.4 10^3/uL (4.0-10.0)
[2021-01-25 21:58] LABS: HCG Qualitative Urine. Negative (Negative)
[2021-01-25 22:46] VITALS: BP 131/81; PULSE 93; RESP 18; TEMP 36.7; O2SAT 98
== END 2021-01-25 22:20 | disposition home or self-care (01) ==
PROVIDERS: Emergency Provider Emergency Medicine; PCP Family Medicine
DX: N93.9 Abnormal uterine and vaginal bleeding, unspecified (principal); Z79.82 Long term (current) use of aspirin
CPT/HCPCS: 81025; 85025; 99282

== ENCOUNTER 2021-01-29 01:15 | Emergency (ER) | payer MEDICAID, SELFPAY ==
[2021-01-29 01:15] VITALS: BP 139/95; PULSE 97; RESP 16; TEMP 36.8; O2SAT 98; BMI 28.6
--- NOTE | 2021-01-29 01:25 | ED_ITS ---
HPI - General Adult General: Chief complaint: General Medical Stated complaint: GENERAL UNWELL Time Seen by Provider: 01/29/21 01:15 Source: patient Mode of arrival: ambulatory Limitations: no limitations History of Present Illness: HPI narrative: 30-year-old female states that tonight started feeling anxious and was having shaking her legs and arms and is feeling unwell. Patient's been seen here multiple times. She denies any chest pain she had no vomiting or diarrhea. Denies any worsening improving factors. She does appear anxious. Associated symptoms: Deny chest pain, dyspnea, headache(s), nausea, rash or vomiting Review of Systems Const: Denies: fever(s), chills, body aches or change in appetite Eyes: Denies: blurry vision or eye discomfort ENMT: Denies: throat pain or dental pain Card: Denies: chest pain Resp: Denies: dyspnea GI: Denies: abdominal pain, nausea, vomiting or diarrhea : Denies: dysuria Musc: Denies: neck pain or back pain Skin/Breast: Denies: rash Neuro: Denies: headache(s) Psych: Reports: anxiety Sang/Lymph: Denies: easy bruising All/Imm: Denies: urticaria PFSH ED PFSH: Medical History delivery delivered Intermittent palpitations Nonspecific chest pain Social History Smoking and tobacco status: never smoked Female Reproductive History: Date of last menstrual period: 11/17/19 Physical Exam Const: COMMON NORMALS: no acute distress, patient oriented x3 and healthy appearing HENMT: COMMON NORMALS: normocephalic and atraumatic HEAD & SCALP: normocephalic and atraumatic Eye: COMMON NORMALS: Equal, round and reactive pupils present and EOMs intact bilaterally PUPIL: Yes Equal, round and reactive pupils present Neck/C-Spine: COMMON NORMALS: full ROM and supple Chest: COMMONS NORMALS: normal inspection of the chest and normal palpation of entire chest wall Resp: COMMON NORMALS: normal respiratory effort, No retractions, No use of accessory muscles and clear to auscultation bilaterally AUSCULTATION: clear to auscultation bilaterally Cardio: COMMON NORMALS: regular rate, regular rhythm and No murmurs present (Cardio) RATE: regular rate RHYTHM: regular rhythm GI: COMMON NORMALS: Normal to inspection, nondistended, normoactive bowel sounds present, Soft to palpation, non-tender and no masses PALPATION: Yes Soft to palpation Extremity: COMMON NORMALS: normal to inspection and full ROM Neuro: COMMON NORMALS: patient oriented x3, moves all extremities and no focal motor deficits Psych: COMMON NORMALS: mental status grossly normal, Normal thought process present and cooperative THOUGHT PROCESS: Normal thought process present Skin: COMMON NORMALS: no rashes or lesions noted and no wounds GENERAL SKIN EXAM: no rashes or lesions noted Course Vital Signs: Vital signs: Vital Signs Temperature 98.2 F 01/29/21 01:15 Pulse Rate 102 H 01/29/21 01:26 Respiratory Rate 18 01/29/21 01:26 Blood Pressure 121/84 01/29/21 01:26 Pulse Oximetry 98 01/29/21 01:26 MDM - General Adult MDM Narrative: Medical decision making narrative: Patient presents with anxiety that is improved with Ativan. She is well-appearing here and is stable for discharge. She is to follow-up with PCP and return if worsening. Discharge Plan Discharge Patient Disposition: Home Clinical Impression: Anxiety Condition: Stable Prescriptions: No Action hydroxyzine pamoate [Vistaril] 50 mg capsule 50 mg PO Q8H PRN (Reason: anxiety) Qty: 20 RF: 0 diclofenac sodium 75 mg Tablet,Delayed Release (Dr/Ec) 75 mg PO BID PRN (Reason: Pain) RF: 0 bacitracin zinc [Antibiotic (bacitracin zinc)] 500 unit/gram ointment 1 applic topical DAILY Qty: 14 RF: 0 aspirin 325 mg Tablet 325 mg PO PRN RF: 0 ChlorTabs 4 mg Tablet 4 mg PO PRN RF: 0 Flovent 44 mcg/actuation Hfa Aerosol Inhaler 2 puff INHALATION BID PRN (Reason: Shortness Of Breath) RF: 0 Lexapro 10 mg Tablet 10 mg PO DAILY RF: 0 divalproex 250 mg Tablet Extended Release 24 Hr 250 mg PO BEDTIME RF: 0 Discharge Orders: Discharge ED (Routine); Ordered 01/29/21 Ordered By: Dequan Acuña Referrals: Emory Fuentes MD [Primary Care Provider] - 1-3 days Discharge Diet: Advance as tolerated Discharge Activity: Resume usual activity Patient Instructions: Anxiety (ED), Opioid Safety Coding Level of Care Code ED Executive Officer Special Warfare Team for Chg Fwd Exam Comprehensive
[2021-01-29 01:26] VITALS: BP 121/84; PULSE 102; RESP 18; O2SAT 98
[2021-01-29] MEDS: LORazepam 2 mg Tablet PO (01:29)
[2021-01-29 02:16] VITALS: BP 110/82; PULSE 78; RESP 17; O2SAT 96
== END 2021-01-29 02:17 | disposition home or self-care (01) ==
PROVIDERS: Emergency Provider Emergency Medicine; PCP Family Medicine
DX: F41.9 Anxiety disorder, unspecified (principal); Z79.82 Long term (current) use of aspirin
CPT/HCPCS: 99283

== ENCOUNTER 2021-01-29 06:51 | Emergency (ER) | payer MEDICAID, SELFPAY ==
[2021-01-29 06:58] VITALS: BP 138/89; PULSE 93; RESP 16; TEMP 36.6; O2SAT 98; BMI 28.6
[2021-01-29 07:28] VITALS: BP 127/98; PULSE 87; RESP 18; O2SAT 99
--- NOTE | 2021-01-29 07:43 | ECG_ITS ---
[facility] Test Date: 2021-01-29 Pat Name: Kathi Torres Department: Room: Gender: Female Edi Developer: : 1990 Requested By: Dima Flowers Order Number: [id number] Odilon MD: Fab Stephens M.D. Measurements Intervals [place] Rate: 68 P: 29 LA: 152 QRS: 10 QRSD: 93 T: -4 QT: 410 QTc: 436 Interpretive Statements SINUS RHYTHM LOW QRS VOLTAGE IN PRECORDIAL LEADS [QRS DEFLECTION < 1.0 mV IN CHEST LEADS] POSSIBLE RIGHT VENTRICULAR CONDUCTION DELAY [RSR (QR) IN V1/V2] NONSPECIFIC T-WAVE ABNORMALITY Compared to ECG 01/23/2021 11:27:16 Low QRS voltage now present T-wave abnormality now present Sinus arrhythmia no longer present Electronically Signed On 01-29-2021 21:53:59 CDT by Fab Stephens M.D. [id number]
--- NOTE | 2021-01-29 07:45 | ED_ITS ---
HPI - General Adult General: Chief complaint: General Medical Stated complaint: Lack of O2/Head Fog Time Seen by Provider: 01/29/21 07:01 History of Present Illness: HPI narrative: 30-year-old female presents emergency room with complaint of what she describes as brain fog. She also thinks her oxygen sats are low and her heart rate is high. She was seen just a few hours ago by Dr. Acuña with anxiety issues. She is frequently in the emergency room with similar complaints she does have a primary care doctor said she has not seen her PCP recently. She has no chest pain no difficulty breathing. Onset (ago): minute(s) Severity: mild Relieving factors: none Exacerbating factors: none Associated symptoms: Reports malaise and palpitations; Deny chest pain, confusion, cough, diaphoresis, decreased appetite, dyspnea, fevers/chills, headache(s), nausea, rash, seizures, short of breath, syncope, vomiting or weakness Treatments prior to arrival: none Review of Systems Const: Reports: malaise; Denies: diaphoresis ENMT: Denies: throat pain, ear or mastoid pain, nasal discharge or nasal congestion Card: Reports: palpitations; Denies: chest pain or syncope Resp: Denies: dyspnea GI: Denies: nausea or vomiting : Denies: flank pain, difficulty voiding, dysuria, urinary frequency or urinary urgency Skin/Breast: Denies: rash Neuro: Denies: headache(s) or confusion [facility] ED PFSH: Medical History delivery delivered Intermittent palpitations Nonspecific chest pain Social History Smoking and tobacco status: never smoked Female Reproductive History: Date of last menstrual period: 01/20/21 Physical Exam Const: COMMON NORMALS: no acute distress GENERAL APPEARANCE: cooperative and comfortable ORIENTATION/CONSCIOUSNESS: Yes awake, Yes oriented to person, Yes oriented to place and Yes oriented to time HENMT: COMMON NORMALS: normocephalic, atraumatic and hearing grossly normal bilaterally HEAD & SCALP: normocephalic and atraumatic Neck/C-Spine: COMMON NORMALS: no JVD Lymph: LYMPHATIC: no lymphadenopathy noted and no lymphedema noted Resp: COMMON NORMALS: normal respiratory effort, No retractions, No use of accessory muscles and clear to auscultation bilaterally AUSCULTATION: clear to auscultation bilaterally Cardio: COMMON NORMALS: no JVD, regular rate, regular rhythm and No murmurs present (Cardio) RATE: regular rate RHYTHM: regular rhythm GI: COMMON NORMALS: Soft to palpation and No hepatosplenomegaly present AUSCULTATION: Yes normoactive bowel sounds PALPATION: Yes Soft to palpation, No Tenderness to palpation present (GI), No Guarding due to palpation present (GI) and Yes No hepatosplenomegaly present Extremity: COMMON NORMALS: normal to inspection, capillary refill normal, no clubbing, cyanosis or edema, no calf tenderness and no pedal edema Neuro: SENSORIUM/ORIENTATION: Yes oriented to person, Yes oriented to place and Yes oriented to time Skin: COMMON NORMALS: no rashes or lesions noted GENERAL SKIN EXAM: no rashes or lesions noted Course Vital Signs: Vital signs: Vital Signs Temperature 97.9 F 01/29/21 06:58 Pulse Rate 79 01/29/21 09:12 Respiratory Rate 16 01/29/21 09:12 Blood Pressure 99/67 01/29/21 09:12 Pulse Oximetry 99 01/29/21 09:12 MDM - General Adult MDM Narrative: Medical decision making narrative: EKG unremarkable patient is stable. There is no acute process in place this time orthostatics not significant patient is symptomatic with orthostatic testing. Will discharge home and have her follow-up with her primary care physician no change in medications. Discharge Plan Discharge Patient Disposition: Home Clinical Impression: Heart palpitations Condition: Stable Prescriptions: No Action hydroxyzine pamoate [Vistaril] 50 mg capsule 50 mg PO Q8H PRN (Reason: anxiety) Qty: 20 RF: 0 diclofenac sodium 75 mg Tablet,Delayed Release (Dr/Ec) 75 mg PO BID PRN (Reason: Pain) RF: 0 bacitracin zinc [Antibiotic (bacitracin zinc)] 500 unit/gram ointment 1 applic topical DAILY Qty: 14 RF: 0 aspirin 325 mg Tablet 325 mg PO PRN RF: 0 ChlorTabs 4 mg Tablet 4 mg PO PRN RF: 0 Flovent 44 mcg/actuation Hfa Aerosol Inhaler 2 puff INHALATION BID PRN (Reason: Shortness Of Breath) RF: 0 Lexapro 10 mg Tablet 10 mg PO DAILY RF: 0 divalproex 250 mg Tablet Extended Release 24 Hr 250 mg PO BEDTIME RF: 0 Discharge Orders: Discharge ED (Routine); Ordered 01/29/21 Ordered By: Dima Encinas Referrals: Emory Fuentes MD [Primary Care Provider] - Patient Instructions: Opioid Safety Activity Restrictions/Additional Instructions: Follow-up with your primary care doctor Coding Level of Care Code ED Specialized Language Instructor for Chg Fwd Exam Comprehensive
[2021-01-29 08:14] VITALS: BP 104/75; BP 105/72; BP 109/80; PULSE 76; PULSE 94; PULSE 99
[2021-01-29 09:12] VITALS: BP 99/67; PULSE 79; RESP 16; O2SAT 99
== END 2021-01-29 09:13 | disposition home or self-care (01) ==
PROVIDERS: Emergency Provider Family Medicine; PCP Family Medicine
DX: R00.2 Palpitations (principal); Z79.82 Long term (current) use of aspirin
CPT/HCPCS: 93005; 99283

== ENCOUNTER 2021-01-31 12:43 | Emergency (ER) | payer MEDICAID, SELFPAY ==
[2021-01-31 12:45] VITALS: BP 122/85; PULSE 87; RESP 18; TEMP 36.9; O2SAT 97; BMI 28.8
--- NOTE | 2021-01-31 12:48 | ECG_ITS ---
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 Measurements Intervals [place] Rate: 80 P: 3 MA: 135 QRS: -9 QRSD: 88 T: 12 QT: 351 QTc: 407 Interpretive Statements SINUS RHYTHM WITH SINUS ARRHYTHMIA LOW QRS VOLTAGE IN PRECORDIAL LEADS [QRS DEFLECTION < 1.0 mV IN CHEST LEADS] POSSIBLE ANTERIOR MYOCARDIAL INFARCTION [30 ms Q WAVE IN V3/V4, OR R < 0.2 mV IN V4], OF INDETERMINATE AGE Compared to ECG 01/29/2021 08:10:08 Myocardial infarct finding now present T-wave abnormality no longer present Electronically Signed On 01-31-2021 20:46:15 CDT by Carlene Sheridan M.D. [id number]
--- NOTE | 2021-01-31 13:50 | ED_ITS ---
HPI - Chest Pain General: Chief Complaint: Chest Pain Stated Complaint: CHEST PAIN Time Seen by Provider: 01/31/21 13:15 History of Present Illness: HPI narrative: patient arrives with history of anxiety and exam that she was seen in mu-ism and psychology fellow was talking names talk about some things that made her chest hurt. She feels better now has no chest pain presently. MD complaint: other (Anxiety) Pertinent past history: other (History of anxiety and similar symptoms) Onset (ago): hour(s) Timing of current episode: episodic and now resolved Prior episodes: Yes Onset: other (While sitting in mu-ism) Associated symptoms: Deny abdominal pain, dyspnea, fever(s), nausea or vomiting Review of Systems Const: Denies: fever(s), chills or body aches Eyes: Denies: change in vision or blurry vision ENMT: Denies: throat pain or nasal congestion Card: Reports: chest pain (She felt anxiety sitting on it that her chest started to hurt); Denies: dyspnea on exertion Resp: Denies: dyspnea, productive cough or non-productive cough GI: Denies: abdominal pain, nausea or vomiting Musc: Denies: extremity pain Skin/Breast: Denies: rash Neuro: Denies: headache(s) Psych: 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); Denies: depression Sang/Lymph: Denies: easy bruising PFSH ED PFSH: Medical History delivery delivered Intermittent palpitations Nonspecific chest pain Social History Smoking and tobacco status: never smoked Female Reproductive History: Date of last menstrual period: 01/20/21 Physical Exam Const: COMMON NORMALS: no acute distress, average body habitus and patient oriented x3 HENMT: COMMON NORMALS: normocephalic HEAD & SCALP: normal to inspection and normocephalic FACE & SINUS: normal facial exam Eye: COMMON NORMALS: conjunctivae normal GENERAL EYE: appearance normal, both eyes and all related structures CONJUNCTIVA: Yes conjunctivae normal Neck/C-Spine: COMMON NORMALS: no JVD Chest: COMMONS NORMALS: normal inspection of the chest Resp: COMMON NORMALS: normal respiratory effort and clear to auscultation bilaterally AUSCULTATION: clear to auscultation bilaterally Cardio: COMMON NORMALS: no JVD, regular rate and regular rhythm RATE: regular rate RHYTHM: regular rhythm GI: COMMON NORMALS: Normal to inspection, nondistended, normoactive bowel sounds present Extremity: COMMON NORMALS: normal to inspection and full ROM Neuro: COMMON NORMALS: patient oriented x3 Course Vital Signs: Vital signs: Vital Signs Temperature 98.4 F 01/31/21 12:45 Pulse Rate 87 01/31/21 12:45 Respiratory Rate 18 01/31/21 12:45 Blood Pressure 122/85 01/31/21 12:45 Pulse Oximetry 97 01/31/21 12:45 MDM - Chest Pain MDM Narrative: Medical decision making narrative: EKG appears normal was read by Dr. Corley. I had a long discussion with honesty about her symptoms her medications her displeasure with her counselors and her ongoing ER visits and her anxiety attacks that she has. I encouraged her to find a counselor that she likes and not just one that has agreed there things she says. I also encouraged her to take her medication as prescribed. And use the tools she has at her disposal to help her work through her anxiety attacks. EKG Data^: EKG 1: EKG interpretation date: 01/31/21 EKG interpretation time: 13:54 Computer generated interpretation: Sinus rhythm ventricular rate 80 bpm LA interval 135 ms QRS durations 88 ms QT is 351 ms EKG reviewed by Dr. Corley EKG is consistent with previous EKGs obtained recently Discharge Plan Discharge Patient Disposition: Home Clinical Impression: Anxiety Condition: Stable Prescriptions: No Action hydroxyzine pamoate [Vistaril] 50 mg capsule 50 mg PO Q8H PRN (Reason: anxiety) Qty: 20 RF: 0 diclofenac sodium 75 mg Tablet,Delayed Release (Dr/Ec) 75 mg PO BID PRN (Reason: Pain) RF: 0 bacitracin zinc [Antibiotic (bacitracin zinc)] 500 unit/gram ointment 1 applic topical DAILY Qty: 14 RF: 0 aspirin 325 mg Tablet 325 mg PO PRN RF: 0 ChlorTabs 4 mg Tablet 4 mg PO PRN RF: 0 Flovent 44 mcg/actuation Hfa Aerosol Inhaler 2 puff INHALATION BID PRN (Reason: Shortness Of Breath) RF: 0 Lexapro 10 mg Tablet 10 mg PO DAILY RF: 0 divalproex 250 mg Tablet Extended Release 24 Hr 250 mg PO BEDTIME RF: 0 Discharge Orders: Discharge ED (Routine); Ordered 01/31/21 Ordered By: Bryce Velasco Referrals: Emory Fuentes MD [Primary Care Provider] - Discharge Diet: Usual diet Discharge Activity: Resume usual activity Patient Instructions: Anxiety (ED) Activity Restrictions/Additional Instructions: Take medication as directed follow-up with counselor of your choice. Follow-up Dr. Fuentes as needed. Coding Level of Care Code ED Mitochondrial Disorders Counselor for Serina Chandler
[2021-01-31 14:04] VITALS: PULSE 89; RESP 18; O2SAT 98
== END 2021-01-31 14:04 | disposition home or self-care (01) ==
PROVIDERS: Emergency Provider Nurse Practitioner Family; PCP Family Medicine
DX: F41.9 Anxiety disorder, unspecified (principal); Z79.82 Long term (current) use of aspirin
CPT/HCPCS: 93005; 99283

== ENCOUNTER 2021-02-04 13:15 | Emergency (ER) | payer MEDICAID, SELFPAY ==
[2021-02-04 14:02] VITALS: BP 135/84; PULSE 80; RESP 18; TEMP 36.9; O2SAT 97; BMI 28.6
[2021-02-04 15:21] LABS: Add Urine Microscopic? NO; Charge for UA Resulting for Rev
[2021-02-04 15:30] LABS: Bilirubin Urine Neg (Negative); Blood Urine Neg (Negative); Glucose Urine UA Norm (Normal); Ketones Urine Negative (Negative); Leukocyte Esterase Urine Negative (Negative); Nitrate Urine Negative (Negative); Protein Urine Neg (Negative); Sulfosalicylic Acid Urine Negative (Negative); Urine Appearance Clear (CLEAR); Urine Color Straw (Yellow); Urobilinogen Urine Norm (Negative); pH Urine 8 (5-7)
--- NOTE | 2021-02-04 15:32 | ED_ITS ---
HPI - General Adult General: Chief complaint: General Medical Stated complaint: CONSTANT URINATION AND POSS EPISODE Time Seen by Provider: 02/04/21 15:07 History of Present Illness: HPI narrative: Patient says she is peeing a lot. She went to her doctor earlier today. For the same thing that she went to urgent care and they saw her and did a UA and gave her medicine. And she came straight here because she said she is peeing a lot. Denies any chest pain shortness of breath or syncope to me. She said she got excited when she is try learning to drive a car today and she felt that physically affected her at that time. Because the car would not start she got frustrated and got anxious and now she is feeling better Onset (ago): hour(s) Associated symptoms: Reports no associated symptoms; Deny chest pain, dyspnea, headache(s), nausea, rash or vomiting Review of Systems Const: Denies: fever(s), chills or body aches Eyes: Denies: change in vision or blurry vision ENMT: Denies: throat pain or nasal congestion Card: Denies: chest pain or dyspnea on exertion Resp: Denies: dyspnea, productive cough or non-productive cough GI: Denies: abdominal pain, nausea or vomiting : Reports: urinary frequency Musc: Denies: extremity pain Skin/Breast: Denies: rash Neuro: Denies: headache(s) Psych: Denies: anxiety or depression Sang/Lymph: Denies: easy bruising PFS ED PFSH: Medical History delivery delivered Intermittent palpitations Nonspecific chest pain Social History Smoking and tobacco status: never smoked Female Reproductive History: Date of last menstrual period: 01/20/21 Physical Exam Const: COMMON NORMALS: no acute distress, average body habitus and patient oriented x3 HENMT: COMMON NORMALS: normocephalic HEAD & SCALP: normal to inspection and normocephalic FACE & SINUS: normal facial exam Eye: COMMON NORMALS: conjunctivae normal GENERAL EYE: appearance normal, both eyes and all related structures CONJUNCTIVA: Yes conjunctivae normal Neck/C-Spine: COMMON NORMALS: no JVD Chest: COMMONS NORMALS: normal inspection of the chest Resp: COMMON NORMALS: normal respiratory effort and clear to auscultation bilaterally AUSCULTATION: clear to auscultation bilaterally Cardio: COMMON NORMALS: no JVD, regular rate and regular rhythm RATE: regular rate RHYTHM: regular rhythm GI: COMMON NORMALS: Normal to inspection, nondistended, normoactive bowel sounds present Extremity: COMMON NORMALS: normal to inspection and full ROM Neuro: COMMON NORMALS: patient oriented x3 Course Vital Signs: Vital signs: Vital Signs Temperature 98.5 F 02/04/21 14:02 Pulse Rate 80 02/04/21 14:02 Respiratory Rate 18 02/04/21 14:02 Blood Pressure 135/84 02/04/21 14:02 Pulse Oximetry 97 02/04/21 14:02 [facility] - General Adult Lab Data: Labs: Lab Results 02/04/21 Range/Units 15:11 Urine Color Straw (Yellow) Urine Appearance Clear (CLEAR) Urine pH 8 H (5-7) Ur Specific Gravit y 1.010 (1.005-1.030) Urine Protein Neg (Negative) Urine Glucose (UA) Norm (Normal) Urine Ketones Negative (Negative) Urine Blood Neg (Negative) Urine Nitrate Negative (Negative) Urine Bilirubin Neg (Negative) Prot Sulfosalicyli c Acd Negative (Negative) Urine Urobilinogen Norm (Negative) mg/dL Ur Leukocyte Oyanna ase Negative (Negative) EKG Data^: EKG 1: EKG interpretation date: 02/04/21 EKG interpretation time: 15:44 Interpretation: Normal sinus rhythm ventricular rate 73 bpm VT interval 142 ms QRS durations 90 ms QT is 382 ms Discharge Plan Discharge Patient Disposition: Home Clinical Impression: Anxiety, Urinary frequency Condition: Stable Prescriptions: No Action hydroxyzine pamoate [Vistaril] 50 mg capsule 50 mg PO Q8H PRN (Reason: anxiety) Qty: 20 RF: 0 diclofenac sodium 75 mg Tablet,Delayed Release (Dr/Ec) 75 mg PO BID PRN (Reason: Pain) RF: 0 bacitracin zinc [Antibiotic (bacitracin zinc)] 500 unit/gram ointment 1 applic topical DAILY Qty: 14 RF: 0 aspirin 325 mg Tablet 325 mg PO PRN RF: 0 ChlorTabs 4 mg Tablet 4 mg PO PRN RF: 0 Flovent 44 mcg/actuation Hfa Aerosol Inhaler 2 puff INHALATION BID PRN (Reason: Shortness Of Breath) RF: 0 Lexapro 10 mg Tablet 10 mg PO DAILY RF: 0 divalproex 250 mg Tablet Extended Release 24 Hr 250 mg PO BEDTIME RF: 0 Discharge Orders: Discharge ED (Routine); Ordered 02/04/21 Ordered By: Bryce Velasco Referrals: Emory Fuentes MD [Primary Care Provider] - Discharge Diet: Usual diet Discharge Activity: Resume usual activity Activity Restrictions/Additional Instructions: Follow-up with Dr. Fuentes as necessary. Coding Level of Care Code ED Patient Svcs Mgr for Chg Fwd Exam Comprehensive
--- NOTE | 2021-02-04 16:15 | PC.NURSE ---
went to discharge pt at 1615 and she was not in room
== END 2021-02-04 16:15 | disposition home or self-care (01) ==
PROVIDERS: Family Medicine; Emergency Provider Nurse Practitioner Family; PCP Family Medicine
DX: R35.0 Frequency of micturition (principal); F41.9 Anxiety disorder, unspecified; Z79.82 Long term (current) use of aspirin
CPT/HCPCS: 81003; 99281

== ENCOUNTER 2021-02-04 18:32 | Emergency (ER) | payer MEDICAID, SELFPAY ==
[2021-02-04 19:06] VITALS: BP 119/87; PULSE 84; RESP 18; TEMP 37; O2SAT 98; BMI 28.6
[2021-02-04 19:14] VITALS: PULSE 80; RESP 18; TEMP 37; O2SAT 98
--- NOTE | 2021-02-04 19:37 | W.ED.EXTPRO ---
HPI - Extremity Problem General: Chief complaint: Extremity Problem,Nontraumatic Stated complaint: GENERAL MEDICAL Time Seen by Provider: 02/04/21 19:35 History of Present Illness: HPI Narrative: Patient is a 30-year-old female comes to the ED with bilateral foot pain. Symptoms started within the last 24 hours. She denies any injury or trauma to cause foot pain. Patient did say that she was working a job where she was on her feet a lot right before she started developing the symptoms. Denies any lower extremity swelling, chest pain, shortness of breath, fever, chills. Associated symptoms: Deny chest pain, fever(s) or rash Review of Systems Const: Denies: fever(s), chills or fatigue Eyes: Denies: change in vision or eye discomfort ENMT: Denies: throat pain, odynophagia, nasal discharge or nasal congestion Card: Denies: chest pain, palpitations, edema, swelling of feet/ankles, dyspnea on exertion or orthopnea Resp: Denies: dyspnea, productive cough or non-productive cough GI: Denies: abdominal pain, nausea, vomiting, diarrhea, constipation or hematochezia : Denies: flank pain, dysuria or hematuria Musc: Reports: extremity pain (non traumatic left foot and right foot pain); Denies: neck pain, back pain or extremity swelling Skin/Breast: Denies: rash or new lesions Neuro: Denies: headache(s), numbness in extremities or weakness in extremities [facility] ED PFSH: Medical History delivery delivered Intermittent palpitations Nonspecific chest pain Social History Smoking and tobacco status: never smoked Female Reproductive History: Date of last menstrual period: 01/20/21 Physical Exam Const: COMMON NORMALS: no acute distress, patient oriented x3, healthy appearing and alert GENERAL APPEARANCE: cooperative and comfortable HENMT: COMMON NORMALS: normocephalic HEAD & SCALP: normocephalic MOUTH: Normal oral and palatal mucosa present THROAT: posterior oropharynx normal and uvula midline Neck/C-Spine: COMMON NORMALS: supple GENERAL: Yes normal visual inspection Resp: COMMON NORMALS: normal respiratory effort, No retractions, No use of accessory muscles and clear to auscultation bilaterally AUSCULTATION: clear to auscultation bilaterally Cardio: COMMON NORMALS: regular rate, regular rhythm, S1 normal heart sound present, S2 normal heart sound present, No gallops present (Cardio), No clicks present (Cardio), No murmurs present (Cardio) and Peripheral pulses 2+ throughout RATE: regular rate RHYTHM: regular rhythm HEART SOUNDS: S1 normal heart sound present and S2 normal heart sound present PERIPHERAL PULSES: Peripheral pulses 2+ throughout GI: COMMON NORMALS: Normal to inspection, nondistended, normoactive bowel sounds present, Soft to palpation, non-tender and no masses PALPATION: Yes Soft to palpation : COMMON NORMALS: Yes no CVA tenderness BLADDER/KIDNEY EXAM: Yes no CVA tenderness Back/Pelvis: COMMON NORMALS: no CVA tenderness Extremity: COMMON NORMALS: normal to inspection Neuro: COMMON NORMALS: patient oriented x3 SENSORIUM/ORIENTATION: Yes alert Skin: GENERAL SKIN EXAM: dry skin Course Vital Signs: Vital signs: Vital Signs Temperature 98.6 F 02/04/21 19:14 Pulse Rate 76 02/04/21 19:59 Respiratory Rate 16 02/04/21 19:59 Blood Pressure 139/75 02/04/21 19:59 Pulse Oximetry 99 02/04/21 19:59 MDM - Extremity (Nontraumatic) MDM Narrative: Medical decision making narrative: Patient is a 30-year-old female who comes to the ED with both right and left foot pain. She denies any trauma injury or accident to cause pain. She states that just before the pain started she had a job where she was up on her feet a lot. Patient was diagnosed with bilateral foot pain and given a dose of Toradol while here in the ED. Patient was discharged and told to follow-up with her PCP in 7 to 10 days for further evaluation. Return to ED precautions given. Patient understood and agreed with plan. Discharge Plan Discharge Patient Disposition: Home Clinical Impression: Bilateral foot pain Condition: Stable Prescriptions: No Action hydroxyzine pamoate [Vistaril] 50 mg capsule 50 mg PO Q8H PRN (Reason: anxiety) Qty: 20 RF: 0 diclofenac sodium 75 mg Tablet,Delayed Release (Dr/Ec) 75 mg PO BID PRN (Reason: Pain) RF: 0 bacitracin zinc [Antibiotic (bacitracin zinc)] 500 unit/gram ointment 1 applic topical DAILY Qty: 14 RF: 0 aspirin 325 mg Tablet 325 mg PO PRN RF: 0 ChlorTabs 4 mg Tablet 4 mg PO PRN RF: 0 Flovent 44 mcg/actuation Hfa Aerosol Inhaler 2 puff INHALATION BID PRN (Reason: Shortness Of Breath) RF: 0 Lexapro 10 mg Tablet 10 mg PO DAILY RF: 0 divalproex 250 mg Tablet Extended Release 24 Hr 250 mg PO BEDTIME RF: 0 Discharge Orders: Discharge ED (Routine); Ordered 02/04/21 Ordered By: Eliezer Cooper Referrals: Emory Fuentes MD [Primary Care Provider] - Discharge Diet: Regular Discharge Activity: Increase activity as tolerated Activity Restrictions/Additional Instructions: Follow-up with medical provider as directed in 7-10 days for reevaluation. Rest, ice and elevate feet. Take [id number] ibuprofen or Tylenol for pain. Return to the ER or your medical provider if condition worsens. Please read and understand discharge instructions. Thank you for choosing [facility] for your healthcare needs today. Please realize this is an emergency room and that we are providing you with a medical screening exam and this may not be complete and all inclusive of all the testing and or work up that you may need to determine your ailment or severity of your illness. It is very important that you follow up as instructed or that you return to the Emergency Department should you have concerns or if your condition changes or worsens in any way. Coding Level of Care Code ED Electric Accounting Machine Operator for Serina Fwkendrick Exam Detailed
[2021-02-04 19:47] VITALS: PULSE 95
[2021-02-04] MEDS: ketorolac 60 mg/2 mL INJ IM (19:55)
[2021-02-04 19:58] VITALS: BP 129/75; PULSE 76; RESP 16; O2SAT 99
[2021-02-04 19:59] VITALS: BP 139/75; PULSE 76; RESP 16; O2SAT 99
== END 2021-02-04 20:04 | disposition home or self-care (01) ==
PROVIDERS: Emergency Provider Physician Assistant; PCP Family Medicine
DX: M79.672 Pain in left foot (principal); M79.671 Pain in right foot; Z79.82 Long term (current) use of aspirin
CPT/HCPCS: 96372; 99283; J1885

== ENCOUNTER 2021-02-05 10:51 | Emergency (ER) | payer MEDICAID, SELFPAY ==
[2021-02-05 11:17] VITALS: BP 115/79; PULSE 86; RESP 18; TEMP 36.8; O2SAT 97; BMI 28.8
--- NOTE | 2021-02-05 11:38 | ED_ITS ---
HPI - General Adult General: Chief complaint: Shortness of Breath/Dyspnea Stated complaint: SOB Time Seen by Provider: 02/05/21 11:21 History of Present Illness: HPI narrative: Patient presents from the urgent care clinic where she was sitting and waiting for an appointment this morning. Patient complains about chronic intermittent episodes where her breath feels like is taken away. Patient had this problem for years. Is not short of breath. MD complaint: Anxiety Onset (ago): year(s) Associated symptoms: Reports no associated symptoms; Deny chest pain, dyspnea, headache(s), nausea, rash or vomiting Review of Systems Const: Denies: fever(s), chills or body aches Eyes: Denies: change in vision or blurry vision ENMT: Denies: throat pain or nasal congestion Card: Denies: chest pain or dyspnea on exertion Resp: Reports: other (Has intermittent breathlessness last 15 to 30 seconds she feels like); Denies: dyspnea, productive cough or non-productive cough GI: Denies: abdominal pain, nausea or vomiting Musc: Denies: extremity pain (Feet feel better today) Skin/Breast: Denies: rash Neuro: Denies: headache(s) Psych: Reports: anxiety (Recent change in Lexapro dose); Denies: depression Sang/Lymph: Denies: easy bruising PFSH ED PFSH: Medical History delivery delivered Intermittent palpitations Nonspecific chest pain Social History Smoking and tobacco status: never smoked Female Reproductive History: Date of last menstrual period: 01/20/21 Physical Exam Const: COMMON NORMALS: no acute distress, average body habitus and patient oriented x3 HENMT: COMMON NORMALS: normocephalic HEAD & SCALP: normal to inspection and normocephalic FACE & SINUS: normal facial exam Eye: COMMON NORMALS: conjunctivae normal GENERAL EYE: appearance normal, both eyes and all related structures CONJUNCTIVA: Yes conjunctivae normal Neck/C-Spine: COMMON NORMALS: no JVD Chest: COMMONS NORMALS: normal inspection of the chest Resp: COMMON NORMALS: normal respiratory effort and clear to auscultation bilaterally AUSCULTATION: clear to auscultation bilaterally Cardio: COMMON NORMALS: no JVD, regular rate and regular rhythm RATE: regular rate RHYTHM: regular rhythm GI: COMMON NORMALS: Normal to inspection, nondistended, normoactive bowel sounds present Extremity: COMMON NORMALS: normal to inspection and full ROM Neuro: COMMON NORMALS: patient oriented x3 Psych: COMMON NORMALS: mental status grossly normal; negative for Normal thought process present THOUGHT PROCESS: abnormal Course Vital Signs: Vital signs: Vital Signs Temperature 98.2 F 02/05/21 11:17 Pulse Rate 86 02/05/21 11:17 Respiratory Rate 18 02/05/21 11:17 Blood Pressure 115/79 02/05/21 11:17 Pulse Oximetry 97 02/05/21 11:17 MDM - General Adult MDM Narrative: Medical decision making narrative: Had a very long discussion with honesty about her anxiety and her current treatment and her medication usage. Encouraged her to take her medication as prescribed. I encouraged her to go back to [facility] and follow-up with them and have regular counseling. Discussed her anxiety about her health and her varied complaints and why she comes the ER for them. Patient seem receptive. Discharge Plan Discharge Patient Disposition: Home Clinical Impression: Anxiety about health Condition: Stable Prescriptions: No Action hydroxyzine pamoate [Vistaril] 50 mg capsule 50 mg PO Q8H PRN (Reason: anxiety) Qty: 20 RF: 0 diclofenac sodium 75 mg Tablet,Delayed Release (Dr/Ec) 75 mg PO BID PRN (Reason: Pain) RF: 0 bacitracin zinc [Antibiotic (bacitracin zinc)] 500 unit/gram ointment 1 applic topical DAILY Qty: 14 RF: 0 aspirin 325 mg Tablet 325 mg PO PRN RF: 0 ChlorTabs 4 mg Tablet 4 mg PO PRN RF: 0 Flovent 44 mcg/actuation Hfa Aerosol Inhaler 2 puff INHALATION BID PRN (Reason: Shortness Of Breath) RF: 0 Lexapro 10 mg Tablet 10 mg PO DAILY RF: 0 divalproex 250 mg Tablet Extended Release 24 Hr 250 mg PO BEDTIME RF: 0 Discharge Orders: Discharge ED (Routine); Ordered 02/05/21 Ordered By: Bryce Velasco Referrals: Emory Fuentes MD [Primary Care Provider] - Discharge Diet: Usual diet Discharge Activity: Resume usual activity Patient Instructions: Normal Exam (ED) Activity Restrictions/Additional Instructions: Follow-up Dr. Fuentes as scheduled. Utilize appropriate medical services. Follow-up with behavioral health care and discuss your anxiety about your health. Take your medications as prescribed. 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
--- NOTE | 2021-02-09 08:00 | DCPLANNER ---
studio manager had message to speak with patient about her excessive visits to the ER. studio manager called patient and started talking with her about her visits. She stated that no one helps her, and is doing anything for her. studio manager asked patient if she has a primary care physician, she stated that she does and he does not do anything for her. studio manager asked her if she was following up with [facility] services, patient stated that they don't do anything for her. studio manager looked up patients appointments, and she does not have a therapy appointment scheduled at this time, clinical case manager offered to schedule an appointment and patient stated not at this time. studio manager offered to see if assessment could be moved up sooner and patient said no again at this time. Patient stated that no one is helping her and hung up the phone. studio manager called Jenna Serna, community support worker at [facility], to see if she was getting a director validation. studio manager was told that she is on the list to get a director validation. studio manager was told that patient may be a good candidate for ERE program. studio manager was told to speak with Ryanne Ramos. studio manager called Ryanne, and gave patients name, clinical case manager was told that she would staff patient to see if the team thought that she would be a good candidate for ERE program.
== END 2021-02-05 11:40 | disposition home or self-care (01) ==
PROVIDERS: Emergency Provider Nurse Practitioner Family; PCP Family Medicine
DX: F41.9 Anxiety disorder, unspecified (principal); Z79.82 Long term (current) use of aspirin
CPT/HCPCS: 99282

== ENCOUNTER 2021-02-05 18:25 | Emergency (ER) | payer MEDICAID, SELFPAY ==
[2021-02-05 19:11] VITALS: BP 111/81; PULSE 93; RESP 17; TEMP 36.6; O2SAT 97; BMI 28.8
--- NOTE | 2021-02-05 21:37 | W.ED.GENADLT ---
HPI - General Adult General: Chief complaint: General Medical Stated complaint: FEELS LIKE FLUID COMING OUT OF THROAT Time Seen by Provider: 02/05/21 21:26 Source: patient and EMS Mode of arrival: EMS Limitations: no limitations History of Present Illness: HPI narrative: 30-year-old female is very well-known to the ER has had multiple visits over the last week. She states she has felt anxious with some dyspnea. Patient here is in no distress. She denies any chest pain currently. She denies any worsening improving factors. Associated symptoms: Deny chest pain, dyspnea, headache(s), nausea, rash or vomiting Review of Systems Const: Denies: fever(s), chills, body aches or change in appetite Eyes: Denies: blurry vision or eye discomfort ENMT: Denies: throat pain or dental pain Card: Denies: chest pain Resp: Denies: dyspnea GI: Denies: abdominal pain, nausea, vomiting or diarrhea : Denies: dysuria Musc: Denies: neck pain or back pain Skin/Breast: Denies: rash Neuro: Denies: headache(s) Psych: Reports: anxiety Sang/Lymph: Denies: easy bruising All/Imm: Denies: urticaria PFSH ED PFSH: Medical History delivery delivered Intermittent palpitations Nonspecific chest pain Social History Smoking and tobacco status: never smoked Female Reproductive History: Date of last menstrual period: 01/20/21 Physical Exam Const: COMMON NORMALS: no acute distress, patient oriented x3 and healthy appearing HENMT: COMMON NORMALS: normocephalic and atraumatic HEAD & SCALP: normocephalic and atraumatic Eye: COMMON NORMALS: Equal, round and reactive pupils present and EOMs intact bilaterally PUPIL: Yes Equal, round and reactive pupils present Neck/C-Spine: COMMON NORMALS: full ROM and supple Chest: COMMONS NORMALS: normal inspection of the chest and normal palpation of entire chest wall Resp: COMMON NORMALS: normal respiratory effort, No retractions, No use of accessory muscles and clear to auscultation bilaterally AUSCULTATION: clear to auscultation bilaterally Cardio: COMMON NORMALS: regular rate, regular rhythm and No murmurs present (Cardio) RATE: regular rate RHYTHM: regular rhythm GI: COMMON NORMALS: Normal to inspection, nondistended, normoactive bowel sounds present, Soft to palpation, non-tender and no masses PALPATION: Yes Soft to palpation Extremity: COMMON NORMALS: normal to inspection and full ROM Neuro: COMMON NORMALS: patient oriented x3, moves all extremities and no focal motor deficits Psych: COMMON NORMALS: mental status grossly normal, Normal thought process present and cooperative THOUGHT PROCESS: Normal thought process present Skin: COMMON NORMALS: no rashes or lesions noted and no wounds GENERAL SKIN EXAM: no rashes or lesions noted Course Vital Signs: Vital signs: Vital Signs Temperature 97.9 F 02/05/21 19:11 Pulse Rate 93 02/05/21 19:11 Respiratory Rate 17 02/05/21 19:11 Blood Pressure 111/81 02/05/21 19:11 Pulse Oximetry 97 02/05/21 19:11 MDM - General Adult MDM Narrative: Medical decision making narrative: Patient presents here with anxiety she is well-appearing here. No signs of cardiac cause or respiratory distress. She is stable for discharge and return if worsening. Discharge Plan Discharge Patient Disposition: Home Clinical Impression: Anxiety Condition: Stable Prescriptions: New Vistaril 50 mg capsule 50 mg PO Q8H PRN (Reason: anxiety) Qty: 14 RF: 0 No Action hydroxyzine pamoate [Vistaril] 50 mg capsule 50 mg PO Q8H PRN (Reason: anxiety) Qty: 20 RF: 0 diclofenac sodium 75 mg Tablet,Delayed Release (Dr/Ec) 75 mg PO BID PRN (Reason: Pain) RF: 0 bacitracin zinc [Antibiotic (bacitracin zinc)] 500 unit/gram ointment 1 applic topical DAILY Qty: 14 RF: 0 aspirin 325 mg Tablet 325 mg PO PRN RF: 0 ChlorTabs 4 mg Tablet 4 mg PO PRN RF: 0 Flovent 44 mcg/actuation Hfa Aerosol Inhaler 2 puff INHALATION BID PRN (Reason: Shortness Of Breath) RF: 0 Lexapro 10 mg Tablet 10 mg PO DAILY RF: 0 divalproex 250 mg Tablet Extended Release 24 Hr 250 mg PO BEDTIME RF: 0 Discharge Orders: Discharge ED (Routine); Ordered 02/05/21 Ordered By: Dequan Acuña Referrals: Emory Fuentes MD [Primary Care Provider] - 1-3 days Discharge Diet: Advance as tolerated Discharge Activity: Resume usual activity Patient Instructions: Anxiety (ED) Coding Level of Care Code ED 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
[2021-02-05 21:50] VITALS: BP 111/81
== END 2021-02-05 21:50 | disposition home or self-care (01) ==
PROVIDERS: Emergency Provider Emergency Medicine; PCP Family Medicine
DX: F41.9 Anxiety disorder, unspecified (principal); Z79.82 Long term (current) use of aspirin
CPT/HCPCS: 99281

== ENCOUNTER 2021-02-06 19:25 | Emergency (ER) | payer MEDICAID, SELFPAY ==
[2021-02-06 19:43] VITALS: BP 110/75; PULSE 84; RESP 17; TEMP 36.5; O2SAT 96; BMI 28.3
--- NOTE | 2021-02-06 22:19 | W.ED.WEAKNES ---
HPI - Weakness General: Chief complaint: Weakness Stated complaint: WEAKNESS Time Seen by Provider: 02/06/21 21:16 History of Present Illness: HPI Narrative: The patient is a 30-year-old female with known anxiety disorder who comes to the ER twice a day for the past 3 days. She says today she went home and overdid it. She says she occasionally had some tingling in her hands at home and an episode of shortness of breath and when she felt that way she called the ambulance. In the ED she does not complain of any of those things but says she has been taking aspirin daily to help with occasional headaches. I recommended she change that to Tylenol. I also recommended she take her Vistaril for her anxiety and follow-up with mental health provider. She offers no other specific complaints in the ED today on my exam. Associated symptoms: Denies chest pain, confusion or headache(s) Review of Systems General: Reports: 10 or more systems reviewed and unremarkable except in HPI and below Const: Denies: fatigue Eyes: Denies: change in vision, blurry vision or eye redness ENMT: Denies: throat pain, swelling of lips/tongue, ear or mastoid pain or nasal congestion Card: Denies: chest pain, palpitations, irregular heart rhythm, edema, dyspnea on exertion or orthopnea Resp: Denies: dyspnea, productive cough or non-productive cough GI: Denies: abdominal pain, diarrhea or GI cramping : Denies: flank pain, difficulty voiding, urinary frequency or urinary urgency Musc: Denies: neck pain, back pain, extremity pain, joint pain, joint redness, limited range of motion or muscle weakness Skin/Breast: Denies: rash, pruritus, erythema, skin pain or skin tenderness Neuro: Denies: headache(s), numbness in extremities, weakness in extremities, sensory changes, difficulty walking, dizziness, confusion or Slurred speech present Psych: Reports: anxiety; Denies: depression Endo: Denies: polyuria All/Imm: Denies: urticaria, throat swelling or tongue swelling PFSH ED PFSH: Medical History delivery delivered Intermittent palpitations Nonspecific chest pain Social History Smoking and tobacco status: never smoked Female Reproductive History: Date of last menstrual period: 01/20/21 Physical Exam Const: COMMON NORMALS: no acute distress, average body habitus, patient oriented x3, no limitations, healthy appearing, alert and well nourished GENERAL APPEARANCE: cooperative, comfortable, well kempt and well developed ORIENTATION/CONSCIOUSNESS: Yes awake, Yes oriented to person, Yes oriented to place and Yes oriented to time HENMT: COMMON NORMALS: normocephalic, external ears normal and Normal external nose present HEAD & SCALP: normal to inspection and normocephalic NOSE: Normal external nose present EXTERNAL EAR: Yes external ears normal MOUTH: Normal oral and palatal mucosa present THROAT: posterior oropharynx normal Eye: COMMON NORMALS: Equal, round and reactive pupils present and EOMs intact bilaterally GENERAL EYE: appearance normal, both eyes and all related structures PUPIL: Yes Equal, round and reactive pupils present Neck/C-Spine: COMMON NORMALS: full ROM, no lymphadenopathy, no meningeal signs and no JVD GENERAL: Yes normal visual inspection Lymph: LYMPHATIC: no lymphadenopathy noted Chest: COMMONS NORMALS: normal inspection of the chest and normal palpation of entire chest wall Resp: COMMON NORMALS: normal respiratory effort, No retractions, No use of accessory muscles, clear to auscultation bilaterally and percussion normal EFFORT & INSPECTION: Yes able to speak in complete sentences AUSCULTATION: clear to auscultation bilaterally PERCUSSION: percussion normal Cardio: COMMON NORMALS: no JVD, regular rate, regular rhythm, S1 normal heart sound present, S2 normal heart sound present and Peripheral pulses 2+ throughout RATE: regular rate RHYTHM: regular rhythm HEART SOUNDS: S1 normal heart sound present and S2 normal heart sound present PERIPHERAL PULSES: Peripheral pulses 2+ throughout GI: COMMON NORMALS: Normal to inspection, nondistended, normoactive bowel sounds present, Soft to palpation, non-tender and no masses INSPECTION: Yes normal to inspection PALPATION: Yes Soft to palpation : COMMON NORMALS: Yes no CVA tenderness BLADDER/KIDNEY EXAM: Yes no CVA tenderness Back/Pelvis: COMMON NORMALS: no CVA tenderness, thoracic and lumbar spine normal to inspection, no thoracic nor lumbar tenderness and thoraco-lumbar ROM normal Extremity: COMMON NORMALS: normal to inspection, full ROM, capillary refill normal, no joint enlargement and no pedal edema GENERAL: Yes normal exam except as noted Neuro: COMMON NORMALS: patient oriented x3, CN's II-XII intact bilaterally, moves all extremities, no focal motor deficits, no sensory deficits noted and gait normal SENSORIUM/ORIENTATION: Yes alert, Yes oriented to person, Yes oriented to place and Yes oriented to time MENINGEAL SIGNS: Yes no meningeal signs Psych: COMMON NORMALS: mental status grossly normal, Normal thought process present, cooperative, normal affect and speech normal APPEARANCE: Yes well kempt ATTITUDE: Yes calm SPEECH: Yes normal speech MOOD & AFFECT: Yes anxious THOUGHT PROCESS: Normal thought process present Skin: COMMON NORMALS: no rashes or lesions noted GENERAL SKIN EXAM: no rashes or lesions noted Course Vital Signs: Vital signs: Vital Signs Temperature 97.7 F 02/06/21 19:43 Pulse Rate 84 02/06/21 19:43 Respiratory Rate 17 02/06/21 19:43 Blood Pressure 110/75 02/06/21 19:43 Pulse Oximetry 96 02/06/21 19:43 MDM - Weakness MDM Narrative: Medical decision making narrative: The patient comes in with bizarre complaints from home that are nonspecific such as she feels like she overdid it, tingling in her hands, and episode of shortness of breath. She has none of those in the ED and is stable for discharge. I told her to stop taking aspirin daily and start taking Tylenol. Also try her Vistaril for anxiety. Follow-up with mental health SARAH Discharge Plan Discharge Patient Disposition: Home Clinical Impression: Anxiety Condition: Stable Prescriptions: Discontinued aspirin 325 mg Tablet 325 mg PO PRN RF: 0 No Action hydroxyzine pamoate [Vistaril] 50 mg capsule 50 mg PO Q8H PRN (Reason: anxiety) Qty: 20 RF: 0 diclofenac sodium 75 mg Tablet,Delayed Release (Dr/Ec) 75 mg PO BID PRN (Reason: Pain) RF: 0 bacitracin zinc [Antibiotic (bacitracin zinc)] 500 unit/gram ointment 1 applic topical DAILY Qty: 14 RF: 0 Vistaril 50 mg capsule 50 mg PO Q8H PRN (Reason: anxiety) Qty: 14 RF: 0 ChlorTabs 4 mg Tablet 4 mg PO PRN RF: 0 Flovent 44 mcg/actuation Hfa Aerosol Inhaler 2 puff INHALATION BID PRN (Reason: Shortness Of Breath) RF: 0 Lexapro 10 mg Tablet 10 mg PO DAILY RF: 0 divalproex 250 mg Tablet Extended Release 24 Hr 250 mg PO BEDTIME RF: 0 Discharge Orders: Discharge ED (Routine); Ordered 02/06/21 Ordered By: Chet Tabares Referrals: Emory Fuentes MD [Primary Care Provider] - Discharge Diet: Advance as tolerated Discharge Activity: Resume usual activity Patient Instructions: Anxiety (ED), Opioid Safety Activity Restrictions/Additional Instructions: Please stop taking aspirin. Start taking Tylenol when you get headaches. Try taking your Vistaril to help with your anxiety. Follow-up with mental health provider SARAH. Return to the ER with worsening symptoms Coding Level of Care Code ED Clin Nurse Spec for Serina Chandler
[2021-02-06 22:46] VITALS: BP 112/76; PULSE 69; RESP 16; TEMP 36.4; O2SAT 98
== END 2021-02-06 22:45 | disposition home or self-care (01) ==
PROVIDERS: Emergency Provider Family Medicine; PCP Family Medicine
DX: F41.9 Anxiety disorder, unspecified (principal)
CPT/HCPCS: 99281

== ENCOUNTER 2021-02-06 23:49 | Emergency (ER) | payer MEDICAID, SELFPAY ==
[2021-02-06 23:54] VITALS: BP 132/87; PULSE 86; RESP 16; TEMP 36.7; O2SAT 96; BMI 29.9
--- NOTE | 2021-02-06 23:57 | ED_ITS ---
HPI - General Adult General: Chief complaint: Extremity Injury, Lower Stated complaint: concerns about toe Time Seen by Provider: 02/06/21 23:51 Source: patient Mode of arrival: ambulatory Limitations: no limitations History of Present Illness: HPI narrative: 30-year-old female who states that her right great toenail is falling off. Her left toenail fell off a week ago from wearing ill fitting shoes. She denies any pain. Denies any specific injury. She has no other complaints at this time. Associated symptoms: Deny chest pain, dyspnea, headache(s), nausea, rash or vomiting Review of Systems Const: Denies: fever(s), chills, body aches or change in appetite Eyes: Denies: blurry vision or eye discomfort ENMT: Denies: throat pain or dental pain Card: Denies: chest pain Resp: Denies: dyspnea GI: Denies: abdominal pain, nausea, vomiting or diarrhea : Denies: dysuria Musc: Denies: neck pain or back pain Skin/Breast: Denies: rash Neuro: Denies: headache(s) Psych: Denies: depression Sang/Lymph: Denies: easy bruising All/Imm: Denies: urticaria PFSH ED PFSH: Medical History delivery delivered Intermittent palpitations Nonspecific chest pain Social History Smoking and tobacco status: never smoked Female Reproductive History: Date of last menstrual period: 01/20/21 Physical Exam Const: COMMON NORMALS: no acute distress, patient oriented x3 and healthy appearing HENMT: COMMON NORMALS: normocephalic and atraumatic HEAD & SCALP: normocephalic and atraumatic Eye: COMMON NORMALS: Equal, round and reactive pupils present and EOMs intact bilaterally PUPIL: Yes Equal, round and reactive pupils present Neck/C-Spine: COMMON NORMALS: full ROM and supple Chest: COMMONS NORMALS: normal inspection of the chest and normal palpation of entire chest wall Resp: COMMON NORMALS: normal respiratory effort, No retractions, No use of accessory muscles and clear to auscultation bilaterally AUSCULTATION: clear to auscultation bilaterally Cardio: COMMON NORMALS: regular rate, regular rhythm and No murmurs present (Cardio) RATE: regular rate RHYTHM: regular rhythm GI: COMMON NORMALS: Normal to inspection, nondistended, normoactive bowel sounds present, Soft to palpation, non-tender and no masses PALPATION: Yes Soft to palpation Extremity: COMMON NORMALS: full ROM NARRATIVE EXTREMITY EXAM: Avulsed toenail Neuro: COMMON NORMALS: patient oriented x3, moves all extremities and no focal motor deficits Psych: COMMON NORMALS: mental status grossly normal, Normal thought process present and cooperative THOUGHT PROCESS: Normal thought process present Skin: COMMON NORMALS: no rashes or lesions noted and no wounds GENERAL SKIN EXAM: no rashes or lesions noted MDM - General Adult MDM Narrative: Medical decision making narrative: Patient presents here with toenail avulsion. Her toenail was barely hanging off and I removed it without any difficulty. It was her right great toenail. Her left great toenail fell off a week ago due to ill fitting shoes. Patient stable for discharge. Discharge Plan Discharge Patient Disposition: Home Clinical Impression: Avulsion of toenail of right foot Condition: Stable Prescriptions: No Action hydroxyzine pamoate [Vistaril] 50 mg capsule 50 mg PO Q8H PRN (Reason: anxiety) Qty: 20 RF: 0 diclofenac sodium 75 mg Tablet,Delayed Release (Dr/Ec) 75 mg PO BID PRN (Reason: Pain) RF: 0 bacitracin zinc [Antibiotic (bacitracin zinc)] 500 unit/gram ointment 1 applic topical DAILY Qty: 14 RF: 0 Vistaril 50 mg capsule 50 mg PO Q8H PRN (Reason: anxiety) Qty: 14 RF: 0 ChlorTabs 4 mg Tablet 4 mg PO PRN RF: 0 Flovent 44 mcg/actuation Hfa Aerosol Inhaler 2 puff INHALATION BID PRN (Reason: Shortness Of Breath) RF: 0 Lexapro 10 mg Tablet 10 mg PO DAILY RF: 0 divalproex 250 mg Tablet Extended Release 24 Hr 250 mg PO BEDTIME RF: 0 Discharge Orders: Discharge ED (Routine); Ordered 02/06/21 Ordered By: Dequan Acuña Referrals: Emory Fuentes MD [Primary Care Provider] - Discharge Diet: Advance as tolerated Discharge Activity: Resume usual activity Patient Instructions: Toenail/Fingernail Removal (ED) Coding Level of Care Code ED Transfer Professor for Chg Ramesh
[2021-02-06 23:58] VITALS: PULSE 87; RESP 18; O2SAT 97
--- NOTE | 2021-02-08 15:51 | DCPLANNER ---
front of house manager had message to speak with patient about her excessive visits to the ER. front of house manager called patient and started talking with her about her visits. She stated that no one helps her, and is doing anything for her. front of house manager asked patient if she has a primary care physician, she stated that she does and he does not do anything for her. front of house manager asked her if she was following up with [facility] services, patient stated that they don't do anything for her. front of house manager looked up patients appointments, and she does not have a therapy appointment scheduled at this time, employment evaluator/case manager offered to schedule an appointment and patient stated not at this time. front of house manager offered to see if assessment could be moved up sooner and patient said no again at this time. Patient stated that no one is helping her and hung up the phone. front of house manager called Jenna Serna, community relations director at [facility], to see if she was getting a music theory teacher. front of house manager was told that she is on the list to get a music theory teacher. front of house manager was told that patient may be a good candidate for ERE program. front of house manager was told to speak with Ryanne Ramos. front of house manager called Ryanne, and gave patients name, employment evaluator/case manager was told that she would staff patient to see if the team thought that she would be a good candidate for ERE program.
== END 2021-02-07 00:04 | disposition home or self-care (01) ==
PROVIDERS: Emergency Provider Emergency Medicine; PCP Family Medicine
DX: S91.201A Unspecified open wound of right great toe with damage to nail, initial encounter (principal); X58.XXXA Exposure to other specified factors, initial encounter
CPT/HCPCS: 99281

== ENCOUNTER 2021-02-07 00:40 | Emergency (ER) | payer MEDICAID, SELFPAY ==
[2021-02-07 00:51] VITALS: BP 132/87; PULSE 96; RESP 17; TEMP 36.6; O2SAT 97; BMI 27.6
[2021-02-07 00:54] VITALS: PULSE 91; RESP 17; O2SAT 97
--- NOTE | 2021-02-07 01:07 | ED_ITS ---
HPI - General Adult General: Chief complaint: General Medical Stated complaint: breathing concerns Time Seen by Provider: 02/07/21 01:06 History of Present Illness: HPI narrative: Patient is a 30-year-old female who comes to the ED complaining of shortness of breath. This is the third time patient has checked into the emergency department this evening. She has been seen multiple times over the past couple weeks and she was diagnosed with anxiety. While patient was in the lobby waiting to go home she fell asleep and woke up and felt like she was breathing funny. Patient has no other complaints. Associated symptoms: Reports dyspnea; Deny chest pain, headache(s), nausea, rash, palpitations or vomiting Review of Systems 2 Const: Denies: fever(s), chills or fatigue Eyes: Denies: change in vision or eye discomfort ENMT: Denies: throat pain, odynophagia, nasal discharge or nasal congestion Card: Denies: chest pain, palpitations, edema, swelling of feet/ankles, dyspnea on exertion or orthopnea Resp: Reports: dyspnea; Denies: productive cough or non-productive cough GI: Denies: abdominal pain, nausea, vomiting, diarrhea, constipation or hematochezia : Denies: flank pain, dysuria or hematuria Musc: Denies: neck pain, back pain or extremity swelling Skin/Breast: Denies: rash or new lesions Neuro: Denies: headache(s), numbness in extremities or weakness in extremities Psych: Reports: anxiety (worries a lot about her health) [facility] ED PFSH: Medical History delivery delivered Intermittent palpitations Nonspecific chest pain Social History Smoking and tobacco status: never smoked Female Reproductive History: Date of last menstrual period: 01/20/21 Physical Exam Narrative: EXAM NARRATIVE: Patient is a 30-year-old female that is sitting comfortably on the exam chair when I entered the room. She appears nontoxic and in no respiratory distress. She is breathing comfortably and no wheezing or coughing heard. Const: COMMON NORMALS: no acute distress, patient oriented x3 and alert GENERAL APPEARANCE: cooperative and comfortable HENMT: COMMON NORMALS: normocephalic HEAD & SCALP: normocephalic MOUTH: Normal oral and palatal mucosa present THROAT: posterior oropharynx normal and uvula midline Neck/C-Spine: COMMON NORMALS: supple GENERAL: Yes normal visual inspection Resp: COMMON NORMALS: normal respiratory effort, No retractions, No use of accessory muscles and clear to auscultation bilaterally EFFORT & INSPECTION: Yes able to speak in complete sentences, No tachypneic, No respiratory distress, No labored, No Actively coughing and No audible wheezes AUSCULTATION: clear to auscultation bilaterally, no crackles, no wheezes and lung sounds not diminished Cardio: COMMON NORMALS: regular rate, regular rhythm, S1 normal heart sound present, S2 normal heart sound present, No gallops present (Cardio), No clicks present (Cardio), No murmurs present (Cardio) and Peripheral pulses 2+ throughout RATE: regular rate RHYTHM: regular rhythm HEART SOUNDS: S1 normal heart sound present and S2 normal heart sound present PERIPHERAL PULSES: Peripheral pulses 2+ throughout GI: COMMON NORMALS: Normal to inspection, nondistended, normoactive bowel sounds present, Soft to palpation, non-tender and no masses PALPATION: Yes Soft to palpation : COMMON NORMALS: Yes no CVA tenderness BLADDER/KIDNEY EXAM: Yes no CVA tenderness Back/Pelvis: COMMON NORMALS: no CVA tenderness Extremity: COMMON NORMALS: normal to inspection Neuro: COMMON NORMALS: patient oriented x3 and moves all extremities SENSORIUM/ORIENTATION: Yes alert Skin: GENERAL SKIN EXAM: dry skin Course Vital Signs: Vital signs: Vital Signs Temperature 97.9 F 02/07/21 00:51 Pulse Rate 91 02/07/21 00:54 Respiratory Rate 17 02/07/21 00:54 Blood Pressure 132/87 02/07/21 00:51 Pulse Oximetry 97 02/07/21 00:54 MDM - General Adult MDM Narrative: Medical decision making narrative: Patient is a 30-year-old female who comes to the ED with shortness of breath. This was patient's third ED visit this evening. Exam shows a nontoxic healthy 30-year-old female in no acute respiratory distress. Her lung sounds are clear to auscultation bilaterally and she is having no signs of labored breathing. Vital stable. Patient diagnosed with anxiety and she was given a dose of Vistaril while here in the ED. I discussed with patient about her anxiety and ways she could manage it. I placed order with clinical social work therapist to contact patient due to her excessive ED visits over the past month. My encourage patient to follow-up with her PCP in the next 7 to 10 days to discuss and manage anxiety. Patient understood agree with plan. Discharge Plan Discharge Patient Disposition: Home Clinical Impression: Anxiety Condition: Stable Prescriptions: No Action hydroxyzine pamoate [Vistaril] 50 mg capsule 50 mg PO Q8H PRN (Reason: anxiety) Qty: 20 RF: 0 diclofenac sodium 75 mg Tablet,Delayed Release (Dr/Ec) 75 mg PO BID PRN (Reason: Pain) RF: 0 bacitracin zinc [Antibiotic (bacitracin zinc)] 500 unit/gram ointment 1 applic topical DAILY Qty: 14 RF: 0 Vistaril 50 mg capsule 50 mg PO Q8H PRN (Reason: anxiety) Qty: 14 RF: 0 ChlorTabs 4 mg Tablet 4 mg PO PRN RF: 0 Flovent 44 mcg/actuation Hfa Aerosol Inhaler 2 puff INHALATION BID PRN (Reason: Shortness Of Breath) RF: 0 Lexapro 10 mg Tablet 10 mg PO DAILY RF: 0 divalproex 250 mg Tablet Extended Release 24 Hr 250 mg PO BEDTIME RF: 0 Discharge Orders: Discharge ED (Routine); Ordered 02/07/21 Ordered By: Eliezer Cooper Referrals: Emory uFentes MD [Primary Care Provider] - Discharge Diet: Regular Discharge Activity: Resume usual activity Patient Instructions: Anxiety (ED) Activity Restrictions/Additional Instructions: Follow-up with medical provider as directed. Continue taking all previously prescribed home medications. return to the ER or your medical provider if condition worsens. Please read and understand discharge instructions. Thank you for choosing [facility] for your healthcare needs today. Please realize this is an emergency room and that we are providing you with a medical screening exam and this may not be complete and all inclusive of all the testing and or work up that you may need to determine your ailment or severity of your illness. It is very important that you follow up as instructed or that you return to the Emergency Department should you have concerns or if your condition changes or worsens in any way. Coding Level of Care Code ED [employer]fuels Operations Manager for Serina Fwkendrick Exam Comprehensive
--- NOTE | 2021-02-07 01:14 | PC.NURSE ---
discussed with patient at length about the appropriate use of the emergency services, including EMS and the ER. patient voiced that one of the primary reasons she calls for EMS or comes to the ER is that she is trying to get away from her home life (she lives with her grandmother along with her kids).
[2021-02-07] MEDS: hyDROXYzine 25 mg Capsule PO (01:47)
== END 2021-02-07 01:53 | disposition home or self-care (01) ==
PROVIDERS: Emergency Provider Physician Assistant; PCP Family Medicine
DX: F41.9 Anxiety disorder, unspecified (principal)
CPT/HCPCS: 99283

== ENCOUNTER 2021-02-08 16:40 | Emergency (ER) | payer MEDICAID, SELFPAY ==
[2021-02-08 17:10] VITALS: BP 115/77; PULSE 91; RESP 18; TEMP 37.2; O2SAT 99; BMI 30.1
--- NOTE | 2021-02-08 18:28 | PC.NURSE ---
PT IN WHEELCHAIR SLEEPING IN WAITING ROOM. PT HAS EVEN AND UNLABORED RESPIRATIONS SEEN BY THIS RN
--- NOTE | 2021-02-08 20:35 | W.ED.GENADLT ---
HPI - General Adult General: Chief complaint: General Medical Stated complaint: heat exhaustion Time Seen by Provider: 02/08/21 20:33 History of Present Illness: HPI narrative: Patient comes to the ED with multiple complaints. Patient has been seen here in the ED 8 times since February 04. Patient says she was outside walking today and felt like she was getting really hot and tired. Denies passing out or any loss of consciousness. Denies any nausea/vomiting, abdominal pain, bladder or bowel symptoms. She is also complaining of having some neck muscle pain. Denies any injury or trauma. States she woke up with the pain in her right side of neck. She reports neck pain with range of motion. Associated symptoms: Deny chest pain, dyspnea, headache(s), nausea, rash, palpitations or vomiting Review of Systems Const: Reports: fatigue; Denies: fever(s) or chills Eyes: Denies: change in vision or eye discomfort ENMT: Denies: throat pain, odynophagia, nasal discharge or nasal congestion Card: Denies: chest pain, palpitations, edema, swelling of feet/ankles, dyspnea on exertion or orthopnea Resp: Denies: dyspnea, productive cough or non-productive cough GI: Denies: abdominal pain, nausea, vomiting, diarrhea, constipation or hematochezia : Denies: flank pain, dysuria or hematuria Musc: Reports: neck pain; Denies: back pain or extremity swelling Skin/Breast: Denies: rash or new lesions Neuro: Denies: headache(s), numbness in extremities or weakness in extremities [facility] ED PFSH: Medical History delivery delivered Intermittent palpitations Nonspecific chest pain Social History Smoking and tobacco status: never smoked Female Reproductive History: Date of last menstrual period: 01/20/21 Physical Exam Const: COMMON NORMALS: no acute distress, patient oriented x3 and alert GENERAL APPEARANCE: cooperative and comfortable HENMT: COMMON NORMALS: normocephalic HEAD & SCALP: normocephalic MOUTH: Normal oral and palatal mucosa present THROAT: posterior oropharynx normal and uvula midline Neck/C-Spine: COMMON NORMALS: supple GENERAL: Yes normal visual inspection CERVICAL SPINE: Yes pain with cervical ROM with rotation to the right and with rotation to the left and Yes Trapezius muscle tenderness right Resp: COMMON NORMALS: normal respiratory effort, No retractions, No use of accessory muscles and clear to auscultation bilaterally AUSCULTATION: clear to auscultation bilaterally Cardio: COMMON NORMALS: regular rate, regular rhythm, S1 normal heart sound present, S2 normal heart sound present, No gallops present (Cardio), No clicks present (Cardio), No murmurs present (Cardio) and Peripheral pulses 2+ throughout RATE: regular rate RHYTHM: regular rhythm HEART SOUNDS: S1 normal heart sound present and S2 normal heart sound present PERIPHERAL PULSES: Peripheral pulses 2+ throughout GI: COMMON NORMALS: Normal to inspection, nondistended, normoactive bowel sounds present, Soft to palpation, non-tender and no masses PALPATION: Yes Soft to palpation : COMMON NORMALS: Yes no CVA tenderness BLADDER/KIDNEY EXAM: Yes no CVA tenderness Back/Pelvis: COMMON NORMALS: no CVA tenderness Extremity: COMMON NORMALS: normal to inspection Neuro: COMMON NORMALS: patient oriented x3 and moves all extremities SENSORIUM/ORIENTATION: Yes alert Skin: GENERAL SKIN EXAM: dry skin Course Vital Signs: Vital signs: Vital Signs Temperature 98.4 F 02/08/21 23:25 Pulse Rate 82 02/08/21 23:25 Respiratory Rate 18 02/08/21 23:25 Blood Pressure 125/83 02/08/21 23:25 Pulse Oximetry 97 02/08/21 23:25 MDM - General Adult MDM Narrative: Medical decision making narrative: Patient is here for fatigue and neck pain. Patient says she got tired and fatigued after walking outside in the heat today. Denied any loss of consciousness. Patient is able to drink p.o. fluids while here in the ED and had no episodes of nausea or vomiting. She was resting comfortably on exam bed. I gave patient a dose of Toradol to help with her neck pain and I discharged her home with a prescription of ibuprofen and a muscle relaxer to help with neck pain. Discharge Plan Discharge Patient Disposition: Home Clinical Impression: Neck pain without injury Fatigue Qualifiers: Fatigue type: unspecified Qualified Code(s): R53.83 - Other fatigue Condition: Stable Prescriptions: New ibuprofen 600 mg tablet 600 mg PO Q8H PRN (Reason: fever or pain) Qty: 12 RF: 0 cyclobenzaprine 5 mg tablet 5 mg PO BID PRN (Reason: muscle spasm) Qty: 10 RF: 0 No Action hydroxyzine pamoate [Vistaril] 50 mg capsule 50 mg PO Q8H PRN (Reason: anxiety) Qty: 20 RF: 0 diclofenac sodium 75 mg Tablet,Delayed Release (Dr/Ec) 75 mg PO BID PRN (Reason: Pain) RF: 0 bacitracin zinc [Antibiotic (bacitracin zinc)] 500 unit/gram ointment 1 applic topical DAILY Qty: 14 RF: 0 Vistaril 50 mg capsule 50 mg PO Q8H PRN (Reason: anxiety) Qty: 14 RF: 0 ChlorTabs 4 mg Tablet 4 mg PO PRN RF: 0 Flovent 44 mcg/actuation Hfa Aerosol Inhaler 2 puff INHALATION BID PRN (Reason: Shortness Of Breath) RF: 0 Lexapro 10 mg Tablet 10 mg PO DAILY RF: 0 divalproex 250 mg Tablet Extended Release 24 Hr 250 mg PO BEDTIME RF: 0 Discharge Orders: Discharge ED (Routine); Ordered 02/08/21 Ordered By: Eliezer Cooper Referrals: Emory Fuentes MD [Primary Care Provider] - Discharge Diet: Regular Discharge Activity: Increase activity as tolerated Patient Instructions: Fatigue (ED) Activity Restrictions/Additional Instructions: Follow-up with medical provider as directed. Take medications as prescribed. Cyclobenzaprine is a muscle relaxer and can cause some drowsiness so take at night before going to bed. Return to the ER or your medical provider if condition worsens. Please read and understand discharge instructions. Thank you for choosing [facility] for your healthcare needs today. Please realize this is an emergency room and that we are providing you with a medical screening exam and this may not be complete and all inclusive of all the testing and or work up that you may need to determine your ailment or severity of your illness. It is very important that you follow up as instructed or that you return to the Emergency Department should you have concerns or if your condition changes or worsens in any way. Coding Level of Care Code ED Machine Coremaker for Serina Chandler Exam Comprehensive
[2021-02-08 22:17] VITALS: BP 122/81; PULSE 78; RESP 18; TEMP 36.7; O2SAT 97
[2021-02-08 23:25] VITALS: BP 125/83; PULSE 82; RESP 18; TEMP 36.9; O2SAT 97
== END 2021-02-08 23:25 | disposition home or self-care (01) ==
PROVIDERS: Emergency Provider Physician Assistant; PCP Family Medicine
DX: R53.83 Other fatigue (principal); M54.2 Cervicalgia
CPT/HCPCS: 96372; 99283

== ENCOUNTER 2021-02-10 00:41 | Emergency (ER) | payer MEDICAID, SELFPAY ==
[2021-02-10 00:41] VITALS: BP 115/80; PULSE 93; RESP 18; TEMP 37.1; O2SAT 97; BMI 29.9
--- NOTE | 2021-02-10 02:47 | ED_ITS ---
HPI - Psych General: Chief Complaint: Psychiatric Symptoms Stated Complaint: anxiety Time Seen by Provider: 02/10/21 01:33 History of Present Illness: HPI Narrative: Patient is a 30-year-old female comes to the ED via EMS for acute anxiety. Patient says she started getting a little stressed and anxious tonight. She says she did not take her prescribed Vistaril because she forgot and decided to call the EMS to bring her to the ED for evaluation. She says that her anxiety tonight was very mild. Denies any SI or HI. Associated symptoms: Deny homicidal ideation or suicidal ideation Review of Systems Const: Denies: fever(s), chills or fatigue Eyes: Denies: change in vision or eye discomfort ENMT: Denies: throat pain, odynophagia, nasal discharge or nasal congestion Card: Denies: chest pain, palpitations, edema, swelling of feet/ankles, dyspnea on exertion or orthopnea Resp: Denies: dyspnea, productive cough or non-productive cough GI: Denies: abdominal pain, nausea, vomiting, diarrhea, constipation or hematochezia : Denies: flank pain, dysuria or hematuria Musc: Denies: neck pain, back pain or extremity swelling Skin/Breast: Denies: rash or new lesions Neuro: Denies: headache(s), numbness in extremities or weakness in extremities Psych: Reports: anxiety; Denies: suicidal ideation or homicidal ideation [facility] ED PFSH: Medical History delivery delivered Intermittent palpitations Nonspecific chest pain Social History Smoking and tobacco status: never smoked Female Reproductive History: Date of last menstrual period: 01/20/21 Physical Exam Const: COMMON NORMALS: no acute distress, patient oriented x3 and alert GENERAL APPEARANCE: cooperative and comfortable HENMT: COMMON NORMALS: normocephalic HEAD & SCALP: normocephalic MOUTH: Normal oral and palatal mucosa present THROAT: posterior oropharynx normal and uvula midline Neck/C-Spine: COMMON NORMALS: supple GENERAL: Yes normal visual inspection Resp: COMMON NORMALS: normal respiratory effort, No retractions, No use of accessory muscles and clear to auscultation bilaterally AUSCULTATION: clear to auscultation bilaterally Cardio: COMMON NORMALS: regular rate, regular rhythm, S1 normal heart sound present, S2 normal heart sound present, No gallops present (Cardio), No clicks present (Cardio), No murmurs present (Cardio) and Peripheral pulses 2+ throughout RATE: regular rate RHYTHM: regular rhythm HEART SOUNDS: S1 normal heart sound present and S2 normal heart sound present PERIPHERAL PULSES: Peripheral pulses 2+ throughout GI: COMMON NORMALS: Normal to inspection, nondistended, normoactive bowel sounds present, Soft to palpation, non-tender and no masses PALPATION: Yes Soft to palpation : COMMON NORMALS: Yes no CVA tenderness BLADDER/KIDNEY EXAM: Yes no CVA tenderness Back/Pelvis: COMMON NORMALS: no CVA tenderness Neuro: COMMON NORMALS: patient oriented x3 and moves all extremities SENSORIUM/ORIENTATION: Yes alert Psych: ATTITUDE: Yes calm ACTIVITY/MOTOR BEHAVIOR: Yes appropriate eye contact THOUGHT CONTENT: No Suicidality present and No Homicidality present Skin: GENERAL SKIN EXAM: dry skin Course Vital Signs: Vital signs: Vital Signs Temperature 98.4 F 02/10/21 03:12 Pulse Rate 81 02/10/21 03:12 Respiratory Rate 16 02/10/21 03:12 Blood Pressure 120/85 02/10/21 03:12 Pulse Oximetry 99 02/10/21 03:12 MDM - Psych MDM Narrative: Medical decision making narrative: Patient is a 30-year-old female comes to the ED with anxiety. Patient has a prescription of Vistaril and says she forgot to take it for her anxiety. She describes her anxiety tonight as a very mild. Denies SI or HI. Patient was given a dose of Vistaril here in the ED and I told her that she needs to be taking her prescribed Vistaril at home as needed for this type of anxiety. Patient discharged. She understood and agreed with plan. Discharge Plan Discharge Patient Disposition: Home Clinical Impression: Anxiety Condition: Stable Prescriptions: No Action hydroxyzine pamoate [Vistaril] 50 mg capsule 50 mg PO Q8H PRN (Reason: anxiety) Qty: 20 RF: 0 diclofenac sodium 75 mg Tablet,Delayed Release (Dr/Ec) 75 mg PO BID PRN (Reason: Pain) RF: 0 bacitracin zinc [Antibiotic (bacitracin zinc)] 500 unit/gram ointment 1 applic topical DAILY Qty: 14 RF: 0 Vistaril 50 mg capsule 50 mg PO Q8H PRN (Reason: anxiety) Qty: 14 RF: 0 ChlorTabs 4 mg Tablet 4 mg PO PRN RF: 0 Flovent 44 mcg/actuation Hfa Aerosol Inhaler 2 puff INHALATION BID PRN (Reason: Shortness Of Breath) RF: 0 Lexapro 10 mg Tablet 10 mg PO DAILY RF: 0 divalproex 250 mg Tablet Extended Release 24 Hr 250 mg PO BEDTIME RF: 0 ibuprofen 600 mg tablet 600 mg PO Q8H PRN (Reason: fever or pain) Qty: 12 RF: 0 cyclobenzaprine 5 mg tablet 5 mg PO BID PRN (Reason: muscle spasm) Qty: 10 RF: 0 Discharge Orders: Discharge ED (Routine); Ordered 02/10/21 Ordered By: Eliezer Cooper Referrals: Emory Fuentes MD [Primary Care Provider] - Discharge Diet: Regular Discharge Activity: Resume usual activity Patient Instructions: Anxiety (ED) Activity Restrictions/Additional Instructions: Follow-up with medical provider as directed. Remember to take a dose of your prescribed Vistaril as needed whenever you are having any acute anxiety. Continue taking all home medications as prescribed. Return to the ER or your medical provider if condition worsens. Please read and understand discharge instructions. Thank you for choosing [facility] for your healthcare needs today. Please realize this is an emergency room and that we are providing you with a medical screening exam and this may not be complete and all inclusive of all the testing and or work up that you may need to determine your ailment or severity of your illness. It is very important that you follow up as instructed or that you return to the Emergency Department should you have concerns or if your condition changes or worsens in any way. Coding Level of Care Code ED Drafter Castings for Serina Fwkendrick Exam Comprehensive
[2021-02-10] MEDS: hyDROXYzine 25 mg Capsule 50 MG PO (03:01)
[2021-02-10 03:04] VITALS: BP 120/85; PULSE 81; RESP 15; O2SAT 99
[2021-02-10 03:12] VITALS: BP 120/85; PULSE 81; RESP 16; TEMP 36.9; O2SAT 99
== END 2021-02-10 03:14 | disposition home or self-care (01) ==
PROVIDERS: Emergency Provider Physician Assistant; PCP Family Medicine
DX: F41.9 Anxiety disorder, unspecified (principal); Z91.14 Patient's other noncompliance with medication regimen
CPT/HCPCS: 99283

== ENCOUNTER 2021-02-11 01:29 | Inpatient (IN) | payer MEDICAID, SELFPAY ==
[2021-02-11 01:36] VITALS: BP 113/75; PULSE 103; RESP 18; TEMP 36.9; O2SAT 95; BMI 29.5
--- NOTE | 2021-02-11 01:54 | ED_ITS ---
HPI - Psych General: Chief Complaint: Psychiatric Symptoms Stated Complaint: mhe Time Seen by Provider: 02/11/21 01:33 History of Present Illness: HPI Narrative: Patient brought in by police. Affidavit was filled out by police. Affidavit states that the patient had a locked plastic jig and fixture builder up in the room with her since the devil was trying to get into him. Then she was [facility] out of the [facility] and then later in the evening she try to get into charge being outdoors please recall.. Patient says people just are not understanding her she is depressed is not suicidal not homicidal says she is very anxious she does not take her medication as prescribed MD complaint: feels depressed Onset (ago): week(s) Duration: constant and getting worse History of same: Yes Relieving factors: none Context: not taking psychiatric medications Associated psychiatric symptoms: depression and racing thoughts Associated symptoms: Reports no associated symptoms and depression Treatments prior to arrival: none Review of Systems Const: Denies: fever(s), chills or body aches Eyes: Denies: change in vision or blurry vision ENMT: Denies: throat pain or nasal congestion Card: Denies: chest pain or dyspnea on exertion Resp: Denies: dyspnea, productive cough or non-productive cough GI: Denies: abdominal pain, nausea or vomiting Musc: Denies: extremity pain Skin/Breast: Denies: rash Neuro: Denies: headache(s) Psych: Reports: anxiety, depression, mood swings and panic attacks Sang/Lymph: Denies: easy bruising PFSH ED PFSH: Medical History delivery delivered Intermittent palpitations Nonspecific chest pain Social History Smoking and tobacco status: never smoked Female Reproductive History: Date of last menstrual period: 01/20/21 Physical Exam Const: COMMON NORMALS: no acute distress, average body habitus and patient oriented x3 GENERAL APPEARANCE: well kempt HENMT: COMMON NORMALS: normocephalic HEAD & SCALP: normal to inspection and normocephalic FACE & SINUS: normal facial exam Eye: COMMON NORMALS: conjunctivae normal GENERAL EYE: appearance normal, both eyes and all related structures CONJUNCTIVA: Yes conjunctivae normal Neck/C-Spine: COMMON NORMALS: no JVD Chest: COMMONS NORMALS: normal inspection of the chest Resp: COMMON NORMALS: normal respiratory effort and clear to auscultation bilaterally AUSCULTATION: clear to auscultation bilaterally Cardio: COMMON NORMALS: no JVD, regular rate and regular rhythm RATE: regular rate RHYTHM: regular rhythm GI: COMMON NORMALS: Normal to inspection, nondistended, normoactive bowel sounds present Extremity: COMMON NORMALS: normal to inspection and full ROM Neuro: COMMON NORMALS: patient oriented x3 Psych: COMMON NORMALS: cooperative, denies homicidal ideation and denies quintana icidal ideation APPEARANCE: Yes well kempt ATTITUDE: Yes paranoid ACTIVITY/MOTOR BEHAVIOR: Yes appropriate eye contact SPEECH: Yes slow MOOD & AFFECT: Yes depressed mood THOUGHT PROCESS: disorganized MEMORY/COGNITION: Yes memory grossly intact Course Vital Signs: Vital signs: Vital Signs Temperature 98.5 F 02/11/21 01:36 Pulse Rate 103 H 02/11/21 01:36 Respiratory Rate 18 02/11/21 01:36 Blood Pressure 113/75 02/11/21 01:36 Pulse Oximetry 95 02/11/21 01:36 MDM - Psych MDM Narrative: Medical decision making narrative: I spoke with Dr. Inman agrees accept patient. Affidavit is included in included chart from the police. Discharge Plan Discharge Prescriptions: No Action hydroxyzine pamoate [Vistaril] 50 mg capsule 50 mg PO Q8H PRN (Reason: anxiety) Qty: 20 RF: 0 diclofenac sodium 75 mg Tablet,Delayed Release (Dr/Ec) 75 mg PO BID PRN (Reason: Pain) RF: 0 bacitracin zinc [Antibiotic (bacitracin zinc)] 500 unit/gram ointment 1 applic topical DAILY Qty: 14 RF: 0 Vistaril 50 mg capsule 50 mg PO Q8H PRN (Reason: anxiety) Qty: 14 RF: 0 ChlorTabs 4 mg Tablet 4 mg PO PRN RF: 0 Flovent 44 mcg/actuation Hfa Aerosol Inhaler 2 puff INHALATION BID PRN (Reason: Shortness Of Breath) RF: 0 Lexapro 10 mg Tablet 10 mg PO DAILY RF: 0 divalproex 250 mg Tablet Extended Release 24 Hr 250 mg PO BEDTIME RF: 0 ibuprofen 600 mg tablet 600 mg PO Q8H PRN (Reason: fever or pain) Qty: 12 RF: 0 cyclobenzaprine 5 mg tablet 5 mg PO BID PRN (Reason: muscle spasm) Qty: 10 RF: 0 Coding Level of Care Code ED Human Capital Consultant for Chg Fwd Exam Comprehensive
[2021-02-11 02:16] LABS: Basophils % 0.5 %; Eosinophils # 0.1 10^3/uL (0.0-0.8); Eosinophils % 0.6 %; Hematocrit 35.7 % (37.0-47.0); Lymphocytes # 1.5 10^3/uL (0.8-4.8); Lymphocytes % 18.6 %; Mean Corpuscular HGB Conc 33.6 g/dL (30.0-36.0); Mean Corpuscular Volume 95.2 fL (81-99); Mean Platelet Volume 9.4 fL (7.4-10.4); Monocytes # 0.6 10^3/uL (0.2-0.9); Monocytes % 7.7 %; Neutrophils # 5.92 10^3/uL (1.8-7.7); Neutrophils % 72.2 %; Nucleated Red Blood Cells % 0 %; Platelet Count 312 10^3/cmm (130-400); Red Blood Count 3.75 10^6/uL (4.1-5.3); Red Cell Distribution Width 12.2 % (12.1-15.1); White Blood Count 8.2 10^3/uL (4.0-10.0)
[2021-02-11 02:30] LABS: HCG Qualitative Urine. Negative (Negative)
[2021-02-11 02:40] LABS: Alanine Aminotransferase 45 U/L (0-33); Albumin Level 4.7 g/dL (3.5-5.2); Alkaline Phosphatase 76 IU/L (35-105); Anion Gap 16.3 (5-19); Aspartate Amino Transferase 20 U/L (0-32); Blood Urea Nitrogen 16 mg/dL (6-20); Calcium 8.9 mg/dL (8.5-10.5); Carbon Dioxide 25 mmol/L (22-29); Chloride 105 mmol/L (98-107); Globulin 2.2 g/dL (1.3-4.6); Glomerular Filtration Rate 145.9 mL/min (90-130); Glucose 93 mg/dL (65-115); Osmolality Calculated 297 mOsm/kg (285-295); Potassium 3.3 mmol/L (3.5-5.1); Sodium 143 mmol/L (136-145); Total Bilirubin 0.8 mg/dL (0.15-1.2); Total Protein 6.9 g/dL (6.6-8.7)
[2021-02-11 02:45] LABS: Acetaminophen < 5.0 ug/mL (10-30); Salicylate < 0.3 mg/dL (3-10)
[2021-02-11 03:02] VITALS: BP 123/78; PULSE 98; RESP 18; TEMP 36.6; O2SAT 98
[2021-02-11 03:06] LABS: Amphetamines Screen Urine Negative (Negative); Barbiturates Screen Urine Negative (Negative); Benzodiazepines Screen Urine Negative (Negative); Cocaine Screen Urine Negative (Negative); Opiate Screen Urine Negative (Negative); PCP Screen Urine Negative (Negative); THC Screen Urine Negative (Negative)
[2021-02-11 04:12] VITALS: BP 113/82; PULSE 100; RESP 21; TEMP 37.2; O2SAT 96
--- NOTE | 2021-02-11 04:13 | PC.NURSE ---
Skin assessment revealed no wounds or injuries.
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
[2021-02-11 14:00] VITALS: BP 116/75; PULSE 103; RESP 18; TEMP 36.2; O2SAT 96
[2021-02-11] MEDS: ARIPiprazole 10 mg Tablet PO (16:12)
[2021-02-11] MEDS: ondansetron 4 MG Tablet PO (20:01)
[2021-02-11 22:00] VITALS: BP 111/71; PULSE 94; RESP 18; TEMP 36.8; O2SAT 97
[2021-02-12] VITALS (8 sets, daily range): BP systolic 102–111; BP diastolic 59–75; PULSE 78–124; RESP 15–18; TEMP 36.8–36.9; O2SAT 94–98
--- NOTE | 2021-02-12 02:26 | PC.NURSE ---
Addendum entered by Neena Almeida LPN 02/12/21 02:27: 204 followed up with pt, pt still feeling nauseated, pt was given a sprite to help settle her stomach. will continue to monitor until end of my shift. Original Note: prn 2000 administered Zofran 4mg for nausea, will continue to monitor pt until end of shift.
[2021-02-12] MEDS: hyDROXYzine 25 mg Capsule 50 MG PO ×2 (03:01→20:55)
--- NOTE | 2021-02-12 03:02 | PC.NURSE ---
Addendum entered by Neena Almeida LPN 02/12/21 04:29: 0338 pt is laying in bed falling asleep while reading her bible, will continue to monitor pt until end of shift. Original Note: prn 0301 administered visteril 50 mg PO for anxiety, pt has been sitting near the nurses station most of the night feeling anxious.
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
[2021-02-12] MEDS: ondansetron 4 MG Tablet PO (05:17)
--- NOTE | 2021-02-12 05:20 | PC.NURSE ---
Addendum entered by Neena Almeida LPN 02/12/21 05:53: 0550 pt has not complained about nausea and hasn't thrown up, will continue to monitor until end of shift. Original Note: prn 0520 administered Zofran 4mg for pt c/o of nausea, will continue to monitor pt until end of shift.
[2021-02-12] MEDS: albuterol 8 gm MDI 2 PUFF INHALATION ×3 (06:24→22:30)
[2021-02-12] MEDS: ARIPiprazole 10 mg Tablet PO (08:15)
--- NOTE | 2021-02-12 16:48 | P.PN_ITS ---
Subjective NPU Subjective: Interval history: Kathi presents today reporting that she is tolerating the Abilify okay. We discussed the fact that she did seem to have a little more clarity and greater ability for [id number] conversation. We talked about the possibility that her latter-day friend might be able to come by which was her grandmother's request. We were able to clarify that the person that met was not her mother but her grandmother as her mother is per her report. We discussed monitoring how she was improving and then deciding on whether to increase the Abilify after another day or so. Mental Status Exam MSE Comments: This is an overweight versus obese short white female with hospital scrubs on with adequate grooming and improving eye contact. No abnormal movements except for mild psychomotor retardation. More cooperative with exam in no acute distress. Speech was more spontaneous but decreased rate and volume. Mood described as all right, affect confused. Thought process less disorganized. Thought content: Patient did not report suicidal or homicidal ideation, there were no delusions reported but she did appear somewhat guarded, she did not report any auditory or visual hallucinations. Attention and concentration were impaired, but improving and memory was unreliable but none were formally tested. She alert and oriented times person and place. Insight and judgment are impaired, impulse control is impaired. Vitals/I&O/Wt Last Vital Signs Temp 98.2 F 02/12/21 13:52 Pulse 84 02/12/21 13:52 Resp 15 02/12/21 13:52 BP 102/59 02/12/21 13:52 Pulse Ox 94 02/12/21 13:52 Data NPU : 02/11/21 02:09 02/11/21 02:09 A&P Additional A&P Information (1) Anxiety about health: (2) Anxiety: (3) Avulsion of toenail of right foot: (4) Neck pain without injury: (5) Fatigue: (6) Nonspecific chest pain: (7) Intermittent palpitations: (8) Altered mental status: (9) Psychosis: Additional A&P Information This is a 30-year-old white female with a long history of trauma anxiety and depression who presents appearing confused and psychotic without identifiable drug use. 1. Continue current medication. 2. Continue every 15 minute checks for safety. 3. Encourage individual, group and milieu therapies. 4. Encourage sober living treatment after discharge at the highest level of care to which she is willing to commit. Involuntary Hold Information 96 Hour Hold: 96 Hour Involuntary Admission: No Attestations NPU Medical Necessity Statement*: Inpatient hospitalization is medically necessary and the clinically appropriate intervention at this time. We will monitor medications and make changes as indicated. Likely length of stay 3 to 5 days. Coding Level of Care Code Acute Chief Of Safety And Protection for Serina Chandler
--- NOTE | 2021-02-12 20:06 | PC.NURSE ---
PM ASSESSMENT PT LINGERING NEAR NURSES DESK, STATED, I GOT A BAD FEELING ABOUT MY SON,I NEED TO CALL HIM. PT IS ANXIOUS AND STAYS NEAR NURSES OR OTHER PATIENTS, SHE CALLED HER FAMILY, AND HAS BEEN BETTER THIS EVENING. pT STILL STATES, I AM GETTING MESSAGES IN MY MIND. SHE IS COOPERATIVE WITH STAFF, WANTS TO SPEAK WITH CLERGY, REFERRAL MADE. DENIES PAIN, DENIES NAUSEA, DENIES VH. DENIES SI/HI. MOVED PT IN FRONT OF NURSES STATION, SHE SEEMS HAPPIER WITH THIS PLACEMENT AND MORE SETTLED.
[2021-02-12] MEDS: trazodone 50 mg Tablet PO (20:55)
--- NOTE | 2021-02-12 20:59 | PC.NURSE ---
PRN Visteril/trazodone Trazodone 50mg po given to help rest and induce sleep Visteril 50mg PO given for increased anxiety Pt states, Im hearing something say not to pray, feels like it is inappropriate, seems confused and admits to at this time. no VH noted.
[2021-02-13 06:00] VITALS: BP 106/73; PULSE 103; RESP 18; TEMP 36.8; O2SAT 97
--- NOTE | 2021-02-13 07:48 | PM.NPN ---
Subjective NPU Subjective: Interval history: Patient presented today reporting that she is hoping to leave soon. Continue discussed the importance of her having greater clarity before she left. Her words continue to increase in their volume but her disorganization is still quite apparent as she was quite tangential in her discussion about the bulk she was reading and what certain letter is meant and also starting to speak about the relationship she perceives with this hydraulic lift operator. Mental Status Exam MSE Comments: This is an overweight versus obese short white female with hospital scrubs on with adequate grooming and improving eye contact. No abnormal movements except for mild psychomotor retardation. More cooperative with exam in no acute distress. Speech was more spontaneous but decreased rate and more normal volume. Mood described as better, affect more euthymic. Thought process disorganized with significant tangential thinking ideas of reference and jumping from concept concept.. Thought content: Patient did not report suicidal or homicidal ideation, there were no delusions reported but she was a little less guarded with allow her to share her obsessional hyper mu-ism thinking, she did not report any auditory or visual hallucinations. Attention and concentration were improving, and memory was unreliable but none were formally tested. She alert and oriented times person and place. Insight and judgment are impaired, impulse control is impaired. Vitals/I&O/Wt Last Vital Signs Temp 98.3 F 02/13/21 06:00 Pulse 103 H 02/13/21 06:00 Resp 18 02/13/21 06:00 BP 106/73 02/13/21 06:00 Pulse Ox 97 02/13/21 06:00 Data NPU : 02/11/21 02:09 02/11/21 02:09 A&P Additional A&P Information (1) Anxiety about health: (2) Anxiety: (3) Avulsion of toenail of right foot: (4) Neck pain without injury: (5) Fatigue: (6) Nonspecific chest pain: (7) Intermittent palpitations: (8) Altered mental status: (9) Psychosis: Additional A&P Information This is a 30-year-old white female with a long history of trauma anxiety and depression who presents appearing confused and psychotic without identifiable drug use. 1. Continue current medication. Increase Abilify to 15 mg p.o. daily. 2. Continue every 15 minute checks for safety. 3. Encourage individual, group and milieu therapies. 4. Encourage sober living treatment after discharge at the highest level of care to which she is willing to commit. 5. Her level of psychosis would necessitate a 96-hour hold where she to ask to discharge. Involuntary Hold Information 96 Hour Hold: 96 Hour Involuntary Admission: No Attestations NPU Medical Necessity Statement*: Inpatient hospitalization is medically necessary and the clinically appropriate intervention at this time. We will monitor medications and make changes as indicated. Likely length of stay 3 to 5 days. Coding Level of Care Code Acute Bd Special Education Teacher for Serina Chandler
[2021-02-13] MEDS: ARIPiprazole 10 mg Tablet PO (09:02)
[2021-02-13 14:00] VITALS: BP 118/76; PULSE 79; RESP 17; TEMP 37.2; O2SAT 98
[2021-02-13] MEDS: ARIPiprazole 10 mg Tablet 5 MG PO (17:41)
[2021-02-13 19:23] VITALS: BP 98/68; PULSE 91; RESP 18; TEMP 37.3; O2SAT 97
[2021-02-13] MEDS: albuterol 8 gm MDI 2 PUFF INHALATION (19:57)
[2021-02-13 19:58] VITALS: PULSE 105; RESP 17; O2SAT 98
[2021-02-13 20:01] VITALS: PULSE 107; RESP 16; O2SAT 98
[2021-02-13] MEDS: hyDROXYzine 25 mg Capsule 50 MG PO (20:47)
--- NOTE | 2021-02-13 21:20 | PC.NURSE ---
Addendum entered by Neena Almeida LPN 02/13/21 22:09: pt has calmed down some, and is watching tv now Original Note: PRN 2046 pt is anxious and up at the nurses station every 3 minutes talking about having feelings and wondering if she is okay, pt stated that her hands were tingling and having feelings in her veins in her neck. Anxious pacing and unsettled. Administered PRN Vistaril 50mg PO and suggested that she lay down for a bit. Monitoring pt from the nurses station.
[2021-02-14] VITALS (10 sets, daily range): BP systolic 108–111; BP diastolic 69–78; PULSE 10–104; RESP 14–18; TEMP 36.4–37.1; O2SAT 95–99
--- NOTE | 2021-02-14 00:13 | PC.NURSE ---
pt request for vitals Pt has been restless and falling asleep for brief periods tonight, very anxious and worrisome about her children's well being. Pt stated that she is trying to stay awake, because she felt that she slept alot during the day. Pt is at the nursing desk 4 times an hour, wanting reassurance that she is safe. Will continue to monitor pt until the end of shift. Vital signs are normal BP 113/78 P 84 T 98.5 R 18 Sp02 97% RA
[2021-02-14] MEDS: albuterol 8 gm MDI 2 PUFF INHALATION ×3 (00:50→23:01)
[2021-02-14] MEDS: acetaminophen 325 mg Tablet 650 MG PO (05:20)
--- NOTE | 2021-02-14 05:26 | PC.NURSE ---
Addendum entered by Neena Almeida LPN 02/14/21 06:04: 0550 followed up with pt, pt reported a lower pain level of 2/10 at this time. will continue to care for and monitor pt until the end of shift. Original Note: PRN 0520 Administered Tylenol 650mg for pt c/o low back pain 4/10, will continue to monitor until end of shift.
[2021-02-14] MEDS: ARIPiprazole 10 mg Tablet 15 MG PO (08:25)
--- NOTE | 2021-02-14 14:56 | P.PN_ITS ---
Subjective NPU Subjective: Interval history: Kathi presents today reporting that she is interested in leaving his emergency care. We have a conversation about her level of confusion/disorganization/psychosis and our desire to continue with the increased dose of Abilify in hopes that she has further improvement. She endorsed a willingness to stay and I addressed my concerns about her not being well enough. And the possibility of a hold if necessary. Mental Status Exam MSE Comments: This is an overweight versus obese short white female with hospital scrubs on with adequate grooming and improving eye contact. No abnormal movements except for mild psychomotor retardation. More cooperative with exam in no acute distress. Speech was more spontaneous but decreased rate and more normal volume. Mood described as good, affect more euthymic. Thought process disorganized with significant tangential thinking ideas of reference and jumping from concept concept.. Thought content: Patient did not report suicidal or homicidal ideation, there were no delusions reported but she was a little l ess guarded with allow her to share her obsessional hyper alevism thinking, she did not report any auditory or visual hallucinations. Attention and concentration were improving, and memory was unreliable but none were formally tested. She alert and oriented times 3. Insight and judgment are impaired, impulse control is impaired. Vitals/I&O/Wt Last Vital Signs Temp 98.8 F 02/14/21 13:50 Pulse 82 02/14/21 13:50 Resp 14 02/14/21 13:50 BP 107/70 02/14/21 13:50 Pulse Ox 97 02/14/21 13:50 Weight last 48 hrs Weight 66.224 kg Data NPU : 02/11/21 02:09 02/11/21 02:09 A&P Additional A&P Information (1) Anxiety about health: (2) Anxiety: (3) Avulsion of toenail of right foot: (4) Neck pain without injury: (5) Fatigue: (6) Nonspecific chest pain: (7) Intermittent palpitations: (8) Altered mental status: (9) Psychosis: Additional A&P Information This is a 30-year-old white female with a long history of trauma anxiety and depression who presents appearing confused and psychotic without identifiable drug use. 1. Continue current medication. 2. Continue every 15 minute checks for safety. 3. Encourage individual, group and milieu therapies. 4. Encourage sober living treatment after discharge at the highest level of care to which she is willing to commit. 5. Her level of psychosis would necessitate a 96-hour hold where she to ask to discharge. Involuntary Hold Information 96 Hour Hold: 96 Hour Involuntary Admission: No Attestations NPU Medical Necessity Statement*: Inpatient hospitalization is medically necessary and the clinically appropriate intervention at this time. We will monitor medications and make changes as indicated. Likely length of stay 2-4 days. 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
[2021-02-14] MEDS: hyDROXYzine 25 mg Capsule 50 MG PO (20:34)
--- NOTE | 2021-02-14 20:43 | PC.NURSE ---
pt came to desk requesting to talk to the [facility], stated she was getting all jumpy inside and felt like she needed to leave, Vistaril 50mg po given for increased anxiety.
--- NOTE | 2021-02-14 22:17 | PC.NURSE ---
pt is noted to be more calm, visiting with other pts calmly.
[2021-02-15] MEDS: acetaminophen 325 mg Tablet 650 MG PO ×2 (03:11→15:13)
[2021-02-15 06:00] VITALS: BP 116/81; PULSE 104; RESP 15; TEMP 36.8; O2SAT 96
[2021-02-15] MEDS: ARIPiprazole 10 mg Tablet 15 MG PO (08:28)
[2021-02-15 10:49] VITALS: PULSE 104; RESP 16; O2SAT 96
[2021-02-15] MEDS: albuterol 8 gm MDI 2 PUFF INHALATION (10:49)
[2021-02-15 13:44] VITALS: BP 110/74; PULSE 96; RESP 16; TEMP 36.8; O2SAT 97
--- NOTE | 2021-02-15 13:53 | P.PN_ITS ---
Subjective NPU Subjective: Interval history: Kathi presents today showing some mild improvement in her thinking. She reports she is has been in conversation and communication with her grandmother about the possibility of returning there but there are concerns about how that situation would impact her children and she is awaiting evaluation by [facility]ctin services. She continues to be focused on discharge will be redirectable to what ultimately best for her overall. Mental Status Exam MSE Comments: This is an overweight versus obese short white female with hospital scrubs on with adequate grooming and improving eye contact. No abnormal movements except for mild psychomotor retardation. More cooperative with exam in no acute distress. Speech was more spontaneous but decreased rate and more normal volume. Mood described as good, affect more euthymic. Thought process disorganized with significant tangential thinking ideas of reference and jumping from concept concept, but with signs of improvement. Thought content: Patient did not report suicidal or homicidal ideation, there were no delusions reported but she was a little less guarded, she did not report any auditory or visual hallucinations. Attention and concentration were improving, and memory was unreliable but none were formally tested. She alert and oriented times 3. Insight and judgment are limited, but improving, impulse control is limited but improving. Vitals/I&O/Wt Last Vital Signs Temp 98.2 F 02/15/21 13:44 Pulse 96 02/15/21 13:44 Resp 16 02/15/21 13:44 BP 110/74 02/15/21 13:44 Pulse Ox 97 02/15/21 13:44 Weight last 48 hrs Weight 66.224 kg Data NPU : 02/11/21 02:09 02/11/21 02:09 A&P Additional A&P Information (1) Anxiety about health: (2) Anxiety: (3) Avulsion of toenail of right foot: (4) Neck pain without injury: (5) Fatigue: (6) Nonspecific chest pain: (7) Intermittent palpitations: (8) Altered mental status: (9) Psychosis: Additional A&P Information This is a 30-year-old white female with a long history of trauma anxiety and depression who presents appearing confused and psychotic without identifiable drug use. 1. Continue current medication. 2. Continue every 15 minute checks for safety. 3. Encourage individual, group and milieu therapies. 4. Encourage sober living treatment after discharge at the highest level of care to which she is willing to commit. 5. Her level of psychosis could necessitate a 96-hour hold where she to ask to discharge. Involuntary Hold Information 96 Hour Hold: 96 Hour Involuntary Admission: No Attestations NPU Medical Necessity Statement*: Inpatient hospitalization is medically necessary and the clinically appropriate intervention at this time. We will monitor medications and make changes as indicated. Likely length of stay 2-4 days. 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
--- NOTE | 2021-02-15 15:51 | PC.NURSE ---
PRN 1513 Administered Tylenol 650mg for a headache, will continue to monitor until the end of my shift. follow up 1540 pain is reducing per the pt, will continue to monitor until the end of my shift.
[2021-02-15 19:36] VITALS: BP 122/83; PULSE 96; RESP 23; TEMP 36.9; O2SAT 98
[2021-02-15] MEDS: trazodone 50 mg Tablet PO (19:45)
[2021-02-15] MEDS: hyDROXYzine 25 mg Capsule 50 MG PO (19:45)
--- NOTE | 2021-02-15 20:18 | PC.NURSE ---
pt requested both anxiety and sleeping meds. stated she was up most of the night last night and didn't want to be again tonight. suggestion was made to take both meds together tonight and see if that works better. pt agreed.
[2021-02-15] MEDS: OLANZapine 5 mg ODT PO (21:09)
--- NOTE | 2021-02-15 21:10 | PC.NURSE ---
pt still complaining of not being able to sleep. zyprexa 5mg po given.
[2021-02-16] MEDS: acetaminophen 325 mg Tablet 650 MG PO (03:12)
[2021-02-16] MEDS: ondansetron 4 MG Tablet PO (05:53)
[2021-02-16 05:55] VITALS: BP 98/76; PULSE 95; RESP 21; TEMP 36.7; O2SAT 100
[2021-02-16 06:30] LABS: Bilirubin Urine 1+ (Negative); Blood Urine 3+ (Negative); Glucose Urine UA Norm (Normal); Ketones Urine 1+ (Negative); Nitrate Urine Negative (Negative); Protein Urine 2+ (Negative); Specific Gravity, Urine 1.025 (1.005-1.030); Urine Appearance Cloudy (CLEAR); Urine Color Red (Yellow); pH Urine 5 (5-7)
[2021-02-16 06:31] LABS: Add Urine Microscopic? YES; Leukocyte Esterase Urine Negative (Negative); Urobilinogen Urine 1 mg/dL (Negative)
[2021-02-16 06:35] LABS: RBC Urine TOO NUMEROUS TO CNT /hpf (0-2); WBC Urine >100 /hpf (0-5)
[2021-02-16 06:36] LABS: Add Urine Culture? No; Bacteria Urine 4+ /hpf; Squamous Epithelial Cell Urine >100 /hpf (0-5)
[2021-02-16] MEDS: albuterol 8 gm MDI 2 PUFF INHALATION (07:56)
[2021-02-16 07:57] VITALS: PULSE 89; RESP 16; O2SAT 98
[2021-02-16] MEDS: ARIPiprazole 10 mg Tablet 15 MG PO (08:00)
[2021-02-16 08:26] LABS: Bilirubin Urine 1+ (Negative); Blood Urine 3+ (Negative); Glucose Urine UA Norm (Normal); Ketones Urine Negative (Negative); Nitrate Urine Negative (Negative); Protein Urine 1+ (Negative); Urine Appearance Turbid (CLEAR); Urine Color Red (Yellow); pH Urine 5 (5-7)
[2021-02-16 08:27] LABS: Leukocyte Esterase Urine Negative (Negative); Urobilinogen Urine 1 mg/dL (Negative)
[2021-02-16 08:31] LABS: Add Urine Culture? Yes; Bacteria Urine TRACE /hpf; Mucus Urine 2+ /hpf; RBC Urine >100 /hpf (0-2)
--- NOTE | 2021-02-16 11:07 | P.PN_ITS ---
Subjective NPU Subjective: Interval history: Kathi presents today reporting that she ultimately gets our concerns and we discussed working with Q services to ensure safety of her children should she return home. An opportunity to talk to someone will work with her during her younger years getting some historical information. We reached out to [facility] to try to get some more recent information to identify whether the psychosis has been previously identified in her life or other it is new and what baseline looks like. Mental Status Exam MSE Comments: This is an overweight versus obese short white female with hospital scrubs on with adequate grooming and improving eye contact. No abnormal movements except for mild psychomotor retardation. Cooperative with exam in no acute distress. Speech was more spontaneous but decreased rate and more normal volume. Mood described as good, affect brighter, but flat. Thought process disorganized with some tangential thinking and ideas of reference but with signs of improvement. Thought content: Patient did not report suicidal or homicidal ideation, there were no delusions reported but she was a little less guarded, she did not report any auditory or visual hallucinations. Attention and concentration were improving, and memory was unreliable but none were formally tested. She alert and oriented times 3. Insight and judgment are limited, but improving, impulse control is limited but improving. Vitals/I&O/Wt Last Vital Signs Temp 97.7 F 02/16/21 20:09 Pulse 98 02/16/21 20:09 Resp 18 02/16/21 20:09 BP 96/67 02/16/21 20:09 Pulse Ox 97 02/16/21 20:09 Data NPU : 02/11/21 02:09 02/11/21 02:09 A&P Additional A&P Information (1) Anxiety about health: (2) Anxiety: (3) Avulsion of toenail of right foot: (4) Neck pain without injury: (5) Fatigue: (6) Nonspecific chest pain: (7) Intermittent palpitations: (8) Altered mental status: (9) Psychosis: Additional A&P Information This is a 30-year-old white female with a long history of trauma anxiety and depression who presents appearing confused and psychotic without identifiable drug use. 1. Continue current medication. Increased her Abilify to 20 mg p.o. every morning and will consider the possibility of lithium. 2. Continue every 15 minute checks for safety. 3. Encourage individual, group and milieu therapies. 4. Encourage sober living treatment after discharge at the highest level of care to which she is willing to commit. 5. Her level of psychosis could necessitate a 96-hour hold were she to ask to discharge. 6. Get some collateral information from her last outpatient provider at [facility]. Involuntary Hold Information 96 Hour Hold: 96 Hour Involuntary Admission: No Attestations NPU Medical Necessity Statement*: Inpatient hospitalization is medically necessary and the clinically appropriate intervention at this time. We will monitor medications and make changes as indicated. Likely length of stay 2-4 days. Coding Level of Care Code Acute Bulb Sorter for Serina Chandler
[2021-02-16 13:22] VITALS: BP 95/66; PULSE 82; RESP 16; TEMP 37.1; O2SAT 96
[2021-02-16] MEDS: ARIPiprazole 10 mg Tablet 5 MG PO (14:48)
[2021-02-16] MEDS: trazodone 50 mg Tablet PO (20:01)
[2021-02-16] MEDS: hyDROXYzine 25 mg Capsule 50 MG PO (20:01)
[2021-02-16 20:09] VITALS: BP 96/67; PULSE 98; RESP 18; TEMP 36.5; O2SAT 97
--- NOTE | 2021-02-16 20:56 | PC.NURSE ---
pt requesting same meds you gave me last night. i want to sleep good again tonight. vistaril 50mg po and trazodone 50mg po given.
--- NOTE | 2021-02-16 22:30 | PC.NURSE ---
pt has been resting quietly with both eyes closed.
[2021-02-17 06:00] VITALS: BP 111/55; PULSE 88; RESP 18; TEMP 36.7; O2SAT 98
--- NOTE | 2021-02-17 07:37 | PC.NURSE ---
REFUSED SCHEDULED ABILIFY, PT STATED I'M LEAVING TODAY SO I DON'T NEED TO TAKE IT. PT ENCOURAGED BY STAFF TO TAKE MEDICATIONS PRESCRIBED, PT CONT TO REFUSE
[2021-02-17] MEDS: ARIPiprazole 10 mg Tablet 20 MG PO (07:57)
[2021-02-17 11:02] VITALS: BP 111/55; PULSE 88; RESP 18; TEMP 36.7; O2SAT 98
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
[2021-02-17 14:00] VITALS: BP 110/75; PULSE 92; RESP 18; TEMP 35.9; O2SAT 98
== END 2021-02-17 14:39 | disposition home or self-care (01) | DRG 885 ==
LOC: ER 01:35 → NP 06:04
PROVIDERS: Admitting Provider Psychiatry & Neurology Psychiatry; Emergency Provider Nurse Practitioner Family; PCP Family Medicine; Visit Provider Psychiatry & Neurology Psychiatry
DX: F29 Unspecified psychosis not due to a substance or known physiological condition (principal); F41.8 Other specified anxiety disorders; F12.90 Cannabis use, unspecified, uncomplicated; S91.209A Unspecified open wound of unspecified toe(s) with damage to nail, initial encounter; X58.XXXA Exposure to other specified factors, initial encounter; M54.2 Cervicalgia; F32.9 Major depressive disorder, single episode, unspecified; R00.2 Palpitations; R07.9 Chest pain, unspecified; R53.83 Other fatigue; Z62.810 Personal history of physical and sexual abuse in childhood; Z81.8 Family history of other mental and behavioral disorders
CPT/HCPCS: 80053; 80306; 80307; 81001; 81025; 85025; 87086; 87186; 94640; 99285; J3535; Q0162

== ENCOUNTER 2021-02-18 19:37 | Emergency (ER) | payer MEDICAID, SELFPAY ==
[2021-02-18 20:37] VITALS: BP 129/90; PULSE 101; RESP 16; TEMP 36.8; O2SAT 97; BMI 27.6
--- NOTE | 2021-02-18 21:27 | W.ED.ANXIETY ---
HPI - Anxiety General: Chief Complaint: Anxiety Stated Complaint: head feels funny. poss low blood sugar Time Seen by Provider: 02/18/21 20:44 Source: patient Mode of arrival: ambulatory Limitations: no limitations History of Present Illness: HPI narrative: 30-year-old female states she been feeling slightly anxious over the last day. States she had multiple stressors feeling improved currently. She is very well-known to the ER. She denies any suicidal homicidal ideations. Denies any worsening improving factors. Associated symptoms: Deny chest pain, chills, fever(s), headache(s), nausea or vomiting Review of Systems Const: Denies: fever(s), chills, body aches or change in appetite Eyes: Denies: blurry vision or eye discomfort ENMT: Denies: throat pain or dental pain Card: Denies: chest pain Resp: Denies: dyspnea GI: Denies: abdominal pain, nausea, vomiting or diarrhea : Denies: dysuria Musc: Denies: neck pain or back pain Skin/Breast: Denies: rash Neuro: Denies: headache(s) Psych: Reports: anxiety Sang/Lymph: Denies: easy bruising All/Imm: Denies: urticaria PFSH ED PFSH: Medical History delivery delivered Intermittent palpitations Nonspecific chest pain Social History Smoking and tobacco status: never smoked Female Reproductive History: Date of last menstrual period: 02/16/21 Physical Exam Const: COMMON NORMALS: no acute distress, patient oriented x3 and healthy appearing HENMT: COMMON NORMALS: normocephalic and atraumatic HEAD & SCALP: normocephalic and atraumatic Eye: COMMON NORMALS: Equal, round and reactive pupils present and EOMs intact bilaterally PUPIL: Yes Equal, round and reactive pupils present Neck/C-Spine: COMMON NORMALS: full ROM and supple Chest: COMMONS NORMALS: normal inspection of the chest and normal palpation of entire chest wall Resp: COMMON NORMALS: normal respiratory effort, No retractions, No use of accessory muscles and clear to auscultation bilaterally AUSCULTATION: clear to auscultation bilaterally Cardio: COMMON NORMALS: regular rate, regular rhythm and No murmurs present (Cardio) RATE: regular rate RHYTHM: regular rhythm GI: COMMON NORMALS: Normal to inspection, nondistended, normoactive bowel sounds present, Soft to palpation, non-tender and no masses PALPATION: Yes Soft to palpation Extremity: COMMON NORMALS: normal to inspection and full ROM Neuro: COMMON NORMALS: patient oriented x3, moves all extremities and no focal motor deficits Psych: COMMON NORMALS: mental status grossly normal, Normal thought process present and cooperative THOUGHT PROCESS: Normal thought process present Skin: COMMON NORMALS: no rashes or lesions noted and no wounds GENERAL SKIN EXAM: no rashes or lesions noted Course Vital Signs: Vital signs: Vital Signs Temperature 98.2 F 02/18/21 20:37 Pulse Rate 101 H 02/18/21 20:37 Respiratory Rate 16 02/18/21 20:37 Blood Pressure 129/90 02/18/21 20:37 Pulse Oximetry 97 02/18/21 20:37 MDM - Anxiety MDM Narrative: Medical decision making narrative: Patient presents with anxiety. She is well-appearing here and denies any SI or HI. She is stable for discharge is to follow-up PCP and return if worsening. Discharge Plan Discharge Patient Disposition: Home Clinical Impression: Acute anxiety Condition: Stable Prescriptions: No Action hydroxyzine pamoate [Vistaril] 50 mg capsule 50 mg PO Q8H PRN (Reason: anxiety) Qty: 20 RF: 0 ProAir HFA 90 mcg 2 puff inhalation QID PRN (Reason: Wheezing) RF: 0 diclofenac sodium 75 mg tablet,delayed release (DR/EC) 75 mg PO BID RF: 0 trazodone 50 mg Tablet 50 mg PO BEDTIME PRN (Reason: Sleep) 30 Days Qty: 30 RF: 1 aripiprazole 10 mg Tablet 20 mg PO DAILY 30 Days Qty: 60 RF: 1 Discharge Orders: Discharge ED (Routine); Ordered 02/18/21 Ordered By: Dequan Acuña Referrals: Emory Fuentes MD [Primary Care Provider] - 1-3 days Discharge Diet: Advance as tolerated Discharge Activity: Resume usual activity Patient Instructions: Anxiety (ED) Coding Level of Care Code ED Sweeper Driver for Serina Chandler
[2021-02-18] MEDS: LORazepam 1 mg Tablet PO (21:34)
== END 2021-02-18 21:39 | disposition home or self-care (01) ==
PROVIDERS: Emergency Provider Emergency Medicine; PCP Family Medicine
DX: F41.9 Anxiety disorder, unspecified (principal)
CPT/HCPCS: 99283

== ENCOUNTER 2021-03-04 21:37 | Emergency (ER) | payer MEDICAID, SELFPAY ==
[2021-03-04 21:46] VITALS: BP 129/83; PULSE 129; RESP 18; TEMP 36.9; O2SAT 95; BMI 28.3
--- NOTE | 2021-03-04 22:20 | ED_ITS ---
HPI - Anxiety General: Chief Complaint: Anxiety Stated Complaint: ANXIETY Time Seen by Provider: 03/04/21 22:20 History of Present Illness: HPI narrative: 30-year-old female here today with complaints of increased anxiety this evening. Patient has recently been released from the stress center in [place] and was started on lithium. Patient reports doing well with the lithium but was late taking her medication today which caused her to become very anxious regarding her medicine. Patient took her medicine as soon as she got it, but was really anxious regarding her being late with it. Patient then took hydroxyzine 25 mg twice with no improvement of anxiety and then called for EMS. Patient reports some improvement when talking with healthcare providers regarding her anxiety. Patient denies any homicidal or suicidal thoughts. Review of Systems General: Reports: 10 or more systems reviewed and unremarkable except in HPI and below Psych: Reports: anxiety PENDING SALE TO [facility] ED PFSH: Medical History delivery delivered Intermittent palpitations Nonspecific chest pain Social History Smoking and tobacco status: never smoked Female Reproductive History: Date of last menstrual period: 02/16/21 Physical Exam Const: COMMON NORMALS: no acute distress and patient oriented x3 GENERAL APPEARANCE: cooperative HENMT: COMMON NORMALS: normocephalic and Normal external nose present HEAD & SCALP: normal to inspection and normocephalic NOSE: Normal external nose present MOUTH: Normal oral and palatal mucosa present THROAT: posterior oropharynx normal Eye: GENERAL EYE: appearance normal, both eyes and all related structures Neck/C-Spine: COMMON NORMALS: full ROM Chest: COMMONS NORMALS: normal inspection of the chest Resp: COMMON NORMALS: normal respiratory effort EFFORT & INSPECTION: Yes able to speak in complete sentences Cardio: COMMON NORMALS: regular rate and regular rhythm RATE: regular rate RHYTHM: regular rhythm GI: COMMON NORMALS: non-tender Extremity: COMMON NORMALS: normal to inspection Neuro: COMMON NORMALS: patient oriented x3 and moves all extremities Psych: COMMON NORMALS: mental status grossly normal and cooperative Skin: COMMON NORMALS: no rashes or lesions noted GENERAL SKIN EXAM: no rashes or lesions noted Course Vital Signs: Vital signs: Vital Signs Temperature 98.4 F 03/04/21 21:46 Pulse Rate 129 H 03/04/21 21:46 Respiratory Rate 18 03/04/21 21:46 Blood Pressure 129/83 03/04/21 21:46 Pulse Oximetry 95 03/04/21 21:46 MDM - Anxiety MDM Narrative: Medical decision making narrative: 30-year-old female comes in today with complaints of anxiety. Patient had taken some hydroxyzine with no improvement in her anxiety. Patient was anxious because she had taken her lithium late this evening. On exam patient is alert and cooperative. Patient seems calm. Patient does have a tremor. Lungs are clear to auscultation. Skin is warm and dry. Patient denies any suicidal homicidal thought. Differential diagnosis includes anxiety, depression, malingering. Patient was given 1/2 mg lorazepam for her anxiety breakthrough. Reassured patient that although she was late for lithium she should be fine. Patient should continue her routine dosing as directed by her psychiatrist. Patient then should follow-up with primary care and behavioral health for further concerns. Patient reported understanding and agreed to plan. Discharge Plan Discharge Patient Disposition: Home Clinical Impression: Acute anxiety Condition: Stable Prescriptions: No Action hydroxyzine pamoate [Vistaril] 50 mg capsule 50 mg PO Q8H PRN (Reason: anxiety) Qty: 20 RF: 0 ProAir HFA 90 mcg 2 puff inhalation QID PRN (Reason: Wheezing) RF: 0 diclofenac sodium 75 mg tablet,delayed release (DR/EC) 75 mg PO BID RF: 0 trazodone 50 mg Tablet 50 mg PO BEDTIME PRN (Reason: Sleep) 30 Days Qty: 30 RF: 1 aripiprazole 10 mg Tablet 20 mg PO DAILY 30 Days Qty: 60 RF: 1 Discharge Orders: Discharge ED (Routine); Ordered 03/04/21 Ordered By: Jerman Allred Referrals: Emory Fuentes MD [Primary Care Provider] - Discharge Diet: Usual diet Discharge Activity: Increase activity as tolerated Patient Instructions: Anxiety (ED), Opioid Safety Activity Restrictions/Additional Instructions: Home and rest. Continue with routine medications as directed. Healthy diet and exercise. Follow-up with primary care as needed. Return to the ER for new concerns. Coding Level of Care Code ED Staffing Account Manager for Serina Fwkendrick Exam Comprehensive
[2021-03-04] MEDS: LORazepam 0.5 mg Tablet PO (22:42)
[2021-03-04 22:49] VITALS: BP 135/80; PULSE 80; RESP 18; TEMP 36.6; O2SAT 98
== END 2021-03-04 22:51 | disposition home or self-care (01) ==
PROVIDERS: Emergency Provider Nurse Practitioner Family; PCP Family Medicine
DX: F41.9 Anxiety disorder, unspecified (principal)
CPT/HCPCS: 99283

== ENCOUNTER → 2021-03-23 13:52 | Outpatient (BNVA) | payer OTHER, SELFPAY | PROVIDERS: PCP Family Medicine; Visit Provider Psychiatry & Neurology Psychiatry | DX: F31.9 Bipolar disorder, unspecified (principal); F41.1 Generalized anxiety disorder | CPT/HCPCS: 80053; 80178; 84443; 85025; 99204 ==

== ENCOUNTER → 2021-04-21 08:37 | Outpatient (BNVA) | payer OTHER, SELFPAY | PROVIDERS: PCP Family Medicine; Visit Provider Psychiatry & Neurology Psychiatry | DX: F31.9 Bipolar disorder, unspecified (principal); F41.1 Generalized anxiety disorder | CPT/HCPCS: 99214 ==

== ENCOUNTER → 2021-04-26 08:52 | Outpatient (BNVA) | payer OTHER, SELFPAY | PROVIDERS: PCP Family Medicine; Visit Provider Psychiatry & Neurology Psychiatry | DX: F41.1 Generalized anxiety disorder (principal); F31.9 Bipolar disorder, unspecified | CPT/HCPCS: 80053; 80061; 80178; 83036; 84443; 85025 ==

== ENCOUNTER → 2021-07-14 09:50 | Outpatient (BNVA) | payer OTHER, SELFPAY | PROVIDERS: PCP Family Medicine; Visit Provider Psychiatry & Neurology Psychiatry | DX: F31.9 Bipolar disorder, unspecified (principal); F41.1 Generalized anxiety disorder | CPT/HCPCS: 99214 ==

== ENCOUNTER → 2021-08-19 09:42 | Outpatient (BNVA) | payer OTHER, SELFPAY | PROVIDERS: PCP Family Medicine; Visit Provider Psychiatry & Neurology Psychiatry | DX: F31.9 Bipolar disorder, unspecified (principal); F41.1 Generalized anxiety disorder | CPT/HCPCS: 99214 ==

== ENCOUNTER → 2021-10-08 09:58 | Outpatient (BNVA) | payer OTHER, SELFPAY | PROVIDERS: PCP Family Medicine; Visit Provider Psychiatry & Neurology Psychiatry | DX: F31.9 Bipolar disorder, unspecified (principal); F41.1 Generalized anxiety disorder | CPT/HCPCS: 99213 ==

== ENCOUNTER → 2021-12-31 09:53 | Outpatient (BNVA) | payer OTHER, SELFPAY | PROVIDERS: PCP Family Medicine; Visit Provider Psychiatry & Neurology Psychiatry | DX: F31.9 Bipolar disorder, unspecified (principal); F41.1 Generalized anxiety disorder | CPT/HCPCS: 99213 ==

== ENCOUNTER 2022-04-12 20:05 | Emergency (ER) | payer MEDICAID, SELFPAY ==
[2022-04-12 20:09] VITALS: BP 134/88; PULSE 114; RESP 20; TEMP 36.6; O2SAT 96; BMI 39.4
--- NOTE | 2022-04-12 20:24 | XRR_ITS ---
PROCEDURE INFORMATION: Exam: XR Chest Exam date and time: 04/12/2022 10:55 PM Age: 31 years old Clinical indication: Patient HX: C/O hemoptysis since this morning. ; Additional info: SOB TECHNIQUE: Imaging protocol: Radiologic exam of the chest. Views: 1 view. COMPARISON: CR XR chest 1V portable [id number] 01/23/2021 11:47 AM FINDINGS: Lungs: The lung bases are suboptimally assessed due to technique however the upper lungs are clear of focal consolidation. A few tiny lateral left basilar opacities are likely atelectasis. Pleural spaces: Unremarkable. No pleural effusion. No pneumothorax. Heart/Mediastinum: Cardiac silhouette appears somewhat magnified by technique but is probably normal in size. No obvious vascular congestion. Bones/joints: No acute osseous findings. Other findings: Single view was submitted. XR/XR chest 1V portable [id number] IMPRESSION: No obvious acute consolidation. Probable left basilar linear atelectasis. Suboptimal lung base assessment. Followup including lateral view may be obtained if clinically indicated.
--- NOTE | 2022-04-12 23:17 | W.ED.GENADLT ---
HPI - General Adult General: Chief complaint: General Medical Stated complaint: SPITTING UP BLOOD Time Seen by Provider: 04/12/22 22:56 History of Present Illness: 31-year-old female comes in today with complaints of coughing up blood. Patient's had 2 or 3 episodes today. Patient reports some rawness in her chest. Patient states that for the past 2 weeks she has had episodes of chest discomfort and had just recently had an increase in her omeprazole. Patient does report occasional shortness of breath. Patient appears nontoxic. Patient appears in no pain. Associated symptoms: Reports dyspnea; Deny chest pain Review of Systems General: Reports: 10 or more systems reviewed and unremarkable except in HPI and below Card: Denies: chest pain Resp: Reports: dyspnea and hemoptysis [facility] ED PFS: Medical History (Updated 04/12/22 @ 23:16 by VALERIE Vaz) delivery delivered Intermittent palpitations Nonspecific chest pain Psychiatric care Social History (Updated 03/25/22 @ 10:03 by Mp Ramirez LPN) Smoking and tobacco status: never smoked Second hand smoke exposure: No Alcohol intake: never Female Reproductive History: Date of last menstrual period: 02/16/21 Physical Exam Const: COMMON NORMALS: alert HENMT: COMMON NORMALS: atraumatic HEAD & SCALP: atraumatic Neck/C-Spine: COMMON NORMALS: full ROM Resp: COMMON NORMALS: normal respiratory effort and clear to auscultation bilaterally AUSCULTATION: clear to auscultation bilaterally Cardio: COMMON NORMALS: regular rate and regular rhythm RATE: regular rate RHYTHM: regular rhythm GI: COMMON NORMALS: Normal to inspection, nondistended, normoactive bowel sounds present Extremity: COMMON NORMALS: normal to inspection Neuro: SENSORIUM/ORIENTATION: Yes alert Skin: COMMON NORMALS: no rashes or lesions noted GENERAL SKIN EXAM: no rashes or lesions noted Course Vital Signs: Vital signs: Vital Signs Temperature 97.8 F 04/12/22 20:09 Pulse Rate 114 H 04/12/22 20:09 Respiratory Rate 20 H 04/12/22 20:09 Blood Pressure 134/88 04/12/22 20:09 Pulse Oximetry 96 04/12/22 20:09 MDM - General Adult Medical Decision Making 31-year-old female comes in today with complaints of coughing up blood. On exam patient appears well. Patient appears in no pain. Lungs have good aeration throughout. Skin is warm and dry. Color is pink. Vital signs are normal except for some elevation in pulse at 114. Differential diagnosis includes pneumonia, bronchitis, sinusitis. Chest x-ray was unremarkable. Patient does have some mild drainage in the posterior pharynx. Suspect patient probably has bronchitis due to the discomfort in her chest when she coughs. Patient was given a dose of dexamethasone per IV. We will continue with albuterol 2 puffs every 4 hours as needed for shortness of breath. And will be started on doxycycline 100 mg twice a day for 5 days. Patient reports understanding of care plan need for follow-up or return to the ER. Discharge Plan Discharge Patient Disposition: Home Clinical Impression: Acute bronchitis due to infection Condition: Stable Prescriptions: New doxycycline monohydrate 100 mg capsule 100 mg PO BID Qty: 10 0RF No Action hydroxyzine HCl 50 mg tablet 50 mg PO QID PRN (Reason: anxiety) Qty: 120 2RF aspirin 325 mg tablet 325 mg PO DAILY 0RF omeprazole 10 mg capsule,delayed release(DR/EC) 40 mg PO BID 0RF paliperidone 3 mg tablet extended release 24hr 3 mg PO QAM Qty: 30 2RF clomipramine 50 mg capsule 50 mg PO .HS Qty: 30 2RF ProAir HFA 90 mcg 2 puff inhalation QID PRN (Reason: Wheezing) 0RF Rx Instructions: Patient states no longer taking this medicine. Discharge Orders: Discharge ED (Routine); Ordered 04/12/22 Ordered By: Jerman Allred Referrals: Emory Fuentes MD [Primary Care Provider] - Discharge Diet: Usual diet Discharge Activity: Increase activity as tolerated Patient Instructions: Coughing Up Blood (Hemoptysis) (ED) Activity Restrictions/Additional Instructions: Take medication as directed. Use inhaler albuterol 2 puffs every 4 hours as needed for shortness of breath. Take doxycycline 100 mg 1 capsule twice a day for 5 days. Drink plenty of water. Follow-up with primary care. Return to ER for new concerns. Coding Level of Care Code ED Culture [employer] Laboratory Assistant for Serina Chandler
[2022-04-12] MEDS: doxycycline 100 mg Tablet PO (23:23)
[2022-04-12] MEDS: dexamethasone 10 mg/mL INJ 6 MG IVP (23:24)
[2022-04-12 23:41] VITALS: BP 109/66; PULSE 85; RESP 16; O2SAT 96
[2022-04-12 23:43] VITALS: BP 109/66; PULSE 85; RESP 16; O2SAT 96
[2022-04-12 23:49] VITALS: PULSE 82; RESP 16; O2SAT 97
[2022-04-12] MEDS: albuterol 8 gm MDI 2 PUFF INHALATION (23:50)
== END 2022-04-12 23:52 | disposition home or self-care (01) ==
PROVIDERS: Emergency Provider Nurse Practitioner Family; PCP Family Medicine
DX: J20.8 Acute bronchitis due to other specified organisms (principal); Z79.82 Long term (current) use of aspirin
CPT/HCPCS: 71045; 94640; 96374; 99284; J1100; J3535

== ENCOUNTER → 2022-04-15 10:49 | Outpatient (BNVA) | payer MEDICAID, SELFPAY | PROVIDERS: PCP Family Medicine; Visit Provider Internal Medicine Cardiovascular Disease | DX: F41.1 Generalized anxiety disorder (principal); F31.9 Bipolar disorder, unspecified; F29 Unspecified psychosis not due to a substance or known physiological condition | CPT/HCPCS: 99213 ==

== ENCOUNTER 2022-04-16 17:06 | Emergency (ER) | payer MEDICAID, SELFPAY ==
--- NOTE | 2022-04-16 17:17 | XRR_ITS ---
PROCEDURE INFORMATION: Exam: XR Chest Exam date and time: 04/16/2022 5:36 PM Age: 31 years old Clinical indication: Cough and dyspnea; Additional info: Dyspnea/cough TECHNIQUE: Imaging protocol: Radiologic exam of the chest. Views: 1 view. COMPARISON: CR (CHEST, ) 04/12/2022 10:55 PM FINDINGS: Lungs: Stable left discoid atelectasis and/or scarring. Pleural spaces: Unremarkable. No pleural effusion. No pneumothorax. Heart/Mediastinum: Unremarkable. No cardiomegaly. Bones/joints: Levoscoliosis. XR/XR chest 1V portable [id number] IMPRESSION: No acute findings.
[2022-04-16 17:20] VITALS: BP 121/93; PULSE 112; RESP 18; TEMP 36.7; O2SAT 95; BMI 39.4
--- NOTE | 2022-04-16 17:25 | ED_ITS ---
HPI - Chest Pain General: Chief Complaint: Chest Pain Stated Complaint: CHEST PRESSURE Time Seen by Provider: 04/16/22 17:09 Source: patient Mode of arrival: EMS Limitations: no limitations History of Present Illness: 81-year-old female presents emergency room via EMS with complaint of chest discomfort. She seen Dr. Carlson yesterday in the office. Reviewed that office visit including a work-up as he described that it previously been done. Patient is still thinking she may have had a heart attack. I asked her about her conversation with Dr. Carlson yesterday he said she did not see anything specific other than telling her not to smoke. When I read his note he advised her does not believe she has any heart disease and no further work-up is needed. She is not particularly having chest pain now she describes a mild discomfort or pressure. Not associated with activities not exacerbated by exertion or relieved by rest. She states she still has her prior [place] like she will believe she was seen for before tells me she was told by her doctor not to take the steroids but to take more antibiotics than what she was initially prescribed. MD complaint: chest heaviness Onset (ago): week(s) Timing of current episode: episodic Prior episodes: Yes Onset: during rest Pain location: left chest Pain radiation: none Severity: mild Quality: tightness, aching and heaviness Relieving factors: nothing Exacerbating factors: nothing Associated symptoms: Deny abdominal pain, diaphoresis, dyspnea, fever(s), leg edema, nausea, palpitations, sense of impending doom, syncope or vomiting Treatment prior to arrival: none Review of Systems Const: Denies: fever(s), chills, fatigue, malaise or diaphoresis ENMT: Denies: throat pain, ear or mastoid pain, nasal discharge or nasal congestion Card: Denies: chest pain, palpitations or syncope Resp: Denies: dyspnea, productive cough or non-productive cough GI: Denies: abdominal pain, nausea or vomiting : Denies: flank pain, difficulty voiding, dysuria, urinary frequency or urinary urgency Musc: Denies: neck pain or back pain Skin/Breast: Denies: rash or pruritus PFS ED PFSH: Medical History delivery delivered Intermittent palpitations Nonspecific chest pain Psychiatric care Social History Smoking and tobacco status: never smoked Second hand smoke exposure: No Alcohol intake: never Female Reproductive History: Date of last menstrual period: 02/16/21 Physical Exam Const: COMMON NORMALS: no acute distress GENERAL APPEARANCE: cooperative and comfortable ORIENTATION/CONSCIOUSNESS: Yes awake, Yes oriented to person, Yes oriented to place and Yes oriented to time HENMT: COMMON NORMALS: normocephalic, atraumatic and hearing grossly normal bilaterally HEAD & SCALP: normocephalic and atraumatic Lymph: LYMPHATIC: no lymphadenopathy noted and no lymphedema noted Resp: COMMON NORMALS: normal respiratory effort, No retractions, No use of accessory muscles and clear to auscultation bilaterally AUSCULTATION: clear to auscultation bilaterally Cardio: COMMON NORMALS: regular rate, regular rhythm and No murmurs present (Cardio) RATE: regular rate RHYTHM: regular rhythm GI: COMMON NORMALS: Soft to palpation and No hepatosplenomegaly present AUSCULTATION: Yes normoactive bowel sounds PALPATION: Yes Soft to palpation, No Tenderness to palpation present (GI), No Guarding due to palpation present (GI) and Yes No hepatosplenomegaly present Extremity: COMMON NORMALS: normal to inspection, capillary refill normal, no clubbing, cyanosis or edema, no calf tenderness and no pedal edema Neuro: SENSORIUM/ORIENTATION: Yes oriented to person, Yes oriented to place and Yes oriented to time Skin: COMMON NORMALS: no rashes or lesions noted GENERAL SKIN EXAM: no rashes or lesions noted Course Vital Signs: Vital signs: Vital Signs Temperature 98.1 F 04/16/22 17:20 Pulse Rate 107 H 04/16/22 17:54 Respiratory Rate 18 04/16/22 17:54 Blood Pressure 127/78 04/16/22 17:54 Pulse Oximetry 97 04/16/22 17:54 Oxygen Delivery Me thod 04/16/22 17:54 MDM - Chest Pain Medical Decision Making Reviewed cardiology note. Patient was seen yesterday has been evaluated that he now feels a cardiac problem resurfaces thorough cardiac in nature vital signs otherwise unremarkable. She is mildly tachycardic but she was using albuterol prior to coming in. We will go ahead and discharge her home her oxygen sats are normal. Her symptoms have resolved. Follow-up with her primary care doctor. Medical Records I reviewed the patient's medical records. Lab Data I reviewed the patient's lab results. Radiology Impressions Chest X-Ray 04/16/22 17:17 IMPRESSION: No acute findings. Discharge Plan Discharge Patient Disposition: Home Clinical Impression: Chest pain, non-cardiac Condition: Stable Prescriptions: No Action hydroxyzine HCl 50 mg tablet 50 mg PO QID PRN (Reason: anxiety) Qty: 120 2RF aspirin 325 mg tablet 325 mg PO DAILY omeprazole 10 mg capsule,delayed release(DR/EC) 40 mg PO BID paliperidone 3 mg tablet extended release 24hr 3 mg PO QAM Qty: 30 2RF clomipramine 50 mg capsule 50 mg PO .HS Qty: 30 2RF trazodone 100 mg tablet 100 mg PO DAILY PRN ProAir HFA 90 mcg 2 puff inhalation QID PRN (Reason: Wheezing) Rx Instructions: Patient states no longer taking this medicine. doxycycline monohydrate 100 mg capsule 100 mg PO BID Qty: 10 0RF Carafate 1 gram tablet 1 g PO Q6H PRN (Reason: relfux) 84 Days Qty: 336 0RF Discharge Orders: Discharge ED (Routine); Ordered 04/16/22 Ordered By: Dima Encinas Referrals: Emory Fuentes MD [Primary Care Provider] - Discharge Diet: Usual diet Discharge Activity: Resume usual activity Patient Instructions: Opioid Safety Activity Restrictions/Additional Instructions: Follow-up with your primary care doctor Coding Level of Care Code ED Bar Staff for Chg Fwd Exam Comprehensive
--- NOTE | 2022-04-16 17:29 | ECG_ITS ---
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 Measurements Intervals [place] Rate: 108 P: 21 ID: [id number] QRS: -10 QRSD: 90 T: 18 QT: 357 QTc: 480 Interpretive Statements SINUS TACHYCARDIA POSSIBLE ANTERIOR MYOCARDIAL INFARCTION , OF INDETERMINATE AGE [30 ms Q WAVE IN V3/V4, OR R < 0.2 mV IN V4] Compared to ECG 01/31/2021 12:48:49 Sinus rhythm no longer present Sinus arrhythmia no longer present Myocardial infarct finding still present Electronically Signed On 04-17-2022 10:33:41 CDT by Erick Carlson M.D. [email or web address]
[2022-04-16 17:54] VITALS: BP 127/78; PULSE 107; RESP 18; O2SAT 97
== END 2022-04-16 18:06 | disposition home or self-care (01) ==
PROVIDERS: Emergency Provider Family Medicine; PCP Family Medicine
DX: R07.89 Other chest pain (principal); Z79.82 Long term (current) use of aspirin
CPT/HCPCS: 71045; 93005; 99284

== ENCOUNTER 2022-04-18 10:37 | Emergency (ER) | payer MEDICAID, SELFPAY ==
[2022-04-18 10:43] VITALS: BP 123/67; PULSE 119; RESP 16; TEMP 36.6; O2SAT 95; BMI 39.4
--- NOTE | 2022-04-18 10:46 | CT_ITS ---
WS: [id number] CTA OF THE CHEST WITH PULMONARY EMBOLISM PROTOCOL TECHNIQUE: High-resolution contrast enhanced CTA of the chest with coronal and sagittal reformatted i mages with pulmonary embolism protocol. MIP images are also reviewed. Scan performed x2 due to IV mal function. CLINICAL INFORMATION: chest pain dyspnea COMPARISON: None. DLP: 355.[address] scans at [facility] use at least one of these dose optimization techniques: automated e xposure control; mA and/or kV adjustment per patient size (includes targeted exams where dose is matc hed to clinical indication); or iterative reconstruction. FINDINGS: Proximal main pulmonary arteries are normal. Normal segmental and subsegmental pulmonary arteries. No evidence of pulmonary embolus. No suspicious filling defects. Lungs are well aerated. No acute pulmonary infiltrates. Slight bibasilar atelectasis. No mediastinal or hilar lymphadenopathy. No axillary lymphadenopathy.Normal GE junction. CT/CT angio chest PE protcl [id number] IMPRESSION: 1. No evidence of pulmonary embolus. 2. Both lungs are well aerated. Slight bibasilar atelectasis. 3. No other remarkable findings.
--- NOTE | 2022-04-18 10:47 | ED_ITS ---
HPI - Chest Pain General: Chief Complaint: Chest Pain Stated Complaint: CHEST PRESSURE Time Seen by Provider: 04/18/22 10:39 Source: patient Mode of arrival: EMS History of Present Illness: 31-year-old female presents emergency room via EMS. She was seen 3 days ago in the cardiology clinic with a complaint of chest pain cardiology note was reviewed today. I also seen this patient 2 days ago with similar complaint. Seem to be more GI given the cardiology history and recent cardiology consult no further work-up was done beyond chest x-ray and EKG both which were unremarkable. Today on arrival she has been given nitro prior to arrival she also taken albuterol at home on 2 different occasions. She is mildly tachycardic her sats are normal. He has no history of DVT no history of PE she is not on any anticoagulation. EMS had given her nitro in route additionally they noted that she had a single large eructation in route which seemed to have relieved her pain for the most part. MD complaint: chest pain Onset (ago): minute(s) Timing of current episode: episodic Prior episodes: Yes Onset: during rest Pain location: left chest Pain radiation: none Severity: moderate Quality: sharp Relieving factors: other (Eructation) Exacerbating factors: nothing Associated symptoms: Reports abdominal pain and dyspnea; Deny diaphoresis, fever(s), leg edema, nausea, palpitations, sense of impending doom, syncope or vomiting Treatment prior to arrival: nitroglycerin Review of Systems Const: Denies: fever(s), chills, fatigue, malaise or diaphoresis ENMT: Denies: throat pain, ear or mastoid pain, nasal discharge or nasal congestion Card: Reports: chest pain; Denies: palpitations or syncope Resp: Reports: dyspnea; Denies: productive cough, non-productive cough or wheezing GI: Reports: abdominal pain; Denies: nausea or vomiting : Denies: flank pain, difficulty voiding, dysuria, urinary frequency or urinary urgency Skin/Breast: Denies: rash or pruritus [facility] ED PFSH: Medical History delivery delivered Intermittent palpitations Nonspecific chest pain Psychiatric care Social History Smoking and tobacco status: never smoked Second hand smoke exposure: No Alcohol intake: never Female Reproductive History: Date of last menstrual period: 02/16/21 Physical Exam Const: COMMON NORMALS: no acute distress GENERAL APPEARANCE: cooperative and comfortable ORIENTATION/CONSCIOUSNESS: Yes awake, Yes oriented to person, Yes oriented to place and Yes oriented to time HENMT: COMMON NORMALS: normocephalic, atraumatic and hearing grossly normal bilaterally HEAD & SCALP: normocephalic and atraumatic Resp: COMMON NORMALS: normal respiratory effort, No retractions, No use of accessory muscles and clear to auscultation bilaterally AUSCULTATION: clear to auscultation bilaterally Cardio: COMMON NORMALS: regular rate, regular rhythm and No murmurs present (Cardio) RATE: regular rate RHYTHM: regular rhythm GI: COMMON NORMALS: Soft to palpation and No hepatosplenomegaly present AUSCULTATION: Yes normoactive bowel sounds PALPATION: Yes Soft to palpation, No Tenderness to palpation present (GI), No Guarding due to palpation present (GI) and Yes No hepatosplenomegaly present Extremity: COMMON NORMALS: normal to inspection, capillary refill normal, no clubbing, cyanosis or edema, no calf tenderness and no pedal edema Neuro: SENSORIUM/ORIENTATION: Yes oriented to person, Yes oriented to place and Yes oriented to time Skin: COMMON NORMALS: no rashes or lesions noted GENERAL SKIN EXAM: no rashes or lesions noted Course Vital Signs: Vital signs: Vital Signs Temperature 97.9 F 04/18/22 10:43 Pulse Rate 114 H 04/18/22 13:05 Respiratory Rate 15 04/18/22 13:05 Blood Pressure 123/67 04/18/22 13:05 Pulse Oximetry 98 04/18/22 13:05 Oxygen Delivery Me thod 04/18/22 13:05 MDM - Chest Pain Medical Decision Making Cardiology note again reviewed from last week. Cardiology had reviewed her case did not feel there is any cardiac related issues present she is tachycardic when to go today but her sats are normal this am but I believe may have been anxiety some may have been from her use of albuterol prior to arrival. Because she was recurrent return recurrently and has not had a rule out for PE we did go ahead and get a CT of the chest today which was negative. At this point I think this is a cardio or respiratory issue I think it most likely is GI mediated chest discomfort. Encouraged her to follow-up with her primary care doctor we will give her to use Carafate to use as needed use omeprazole as previously prescribed 40 mg twice daily follow-up with her primary care physician in the office. Medical Records I reviewed the patient's medical records. Lab Data I reviewed the patient's lab results. Radiology Impressions Chest CTA 04/18/22 10:46 IMPRESSION: 1. No evidence of pulmonary embolus. 2. Both lungs are well aerated. Slight bibasilar atelectasis. 3. No other remarkable findings. Laboratory Results HCG, Qual Negative (Negative) 04/18/22 12:20 Discharge Plan Discharge Patient Disposition: Home Clinical Impression: Chest pain, non-cardiac Condition: Stable Prescriptions: New Carafate 1 gram tablet 1 g PO Q6H PRN (Reason: relfux) 84 Days Qty: 336 0RF No Action hydroxyzine HCl 50 mg tablet 50 mg PO QID PRN (Reason: anxiety) Qty: 120 2RF aspirin 325 mg tablet 325 mg PO DAILY omeprazole 10 mg capsule,delayed release(DR/EC) 40 mg PO BID paliperidone 3 mg tablet extended release 24hr 3 mg PO QAM Qty: 30 2RF clomipramine 50 mg capsule 50 mg PO .HS Qty: 30 2RF trazodone 100 mg tablet 100 mg PO DAILY PRN ProAir HFA 90 mcg 2 puff inhalation QID PRN (Reason: Wheezing) Rx Instructions: Patient states no longer taking this medicine. doxycycline monohydrate 100 mg capsule 100 mg PO BID Qty: 10 0RF Discharge Orders: Discharge ED (Routine); Ordered 04/18/22 Ordered By: Dima Encinas Referrals: Emory Fuentes MD [Primary Care Provider] - Discharge Activity: Resume usual activity Patient Instructions: Opioid Safety Coding Level of Care Code ED Musician Instrumental for Chg Fwd Exam Detailed
--- NOTE | 2022-04-18 10:47 | ECG_ITS ---
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 Measurements Intervals [place] Rate: 119 P: 18 RI: 152 QRS: -16 QRSD: 91 T: -1 QT: 428 QTc: 604 Interpretive Statements SINUS TACHYCARDIA POSSIBLE ANTERIOR MYOCARDIAL INFARCTION , PROBABLY OLD [30 ms Q WAVE IN V3/V4, OR R < 0.2 mV IN V4] ABNORMAL RHYTHM ECG Compared to ECG 04/16/2022 17:29:45 No significant changes Electronically Signed On 04-19-2022 7:03:53 CDT by Erick Carlson M.D. [id number] f
[2022-04-18 12:21] VITALS: BP 123/67; PULSE 123; RESP 13; O2SAT 99
[2022-04-18 13:05] VITALS: BP 123/67; PULSE 114; RESP 15; O2SAT 98
[2022-04-18 13:10] LABS: HCG, Serum Qual Negative (Negative)
[2022-04-18] MEDS: iohexol 350 mg/mL 100 mL Btl IV (13:48)
== END 2022-04-18 14:25 | disposition home or self-care (01) ==
PROVIDERS: Emergency Provider Family Medicine; PCP Family Medicine
DX: R07.89 Other chest pain (principal); Z79.82 Long term (current) use of aspirin
CPT/HCPCS: 71275; 84703; 93005; 99285; Q9967

== ENCOUNTER 2022-04-19 10:42 | Inpatient (IN) | payer OTHER, SELFPAY ==
[2022-04-19 11:00] VITALS: BP 133/90; PULSE 108; RESP 18; O2SAT 100; BMI 39.4
--- NOTE | 2022-04-19 11:28 | W.ED.PSYCHS ---
Documented by User: CARL Erickson 04/19/22 14:47 HPI - Psych General: Chief Complaint: Psychiatric Symptoms Stated Complaint: psych evalutaion Time Seen by Provider: 04/19/22 10:54 Source: patient and family (grandmother) Mode of arrival: ambulatory Limitations: no limitations History of Present Illness: Patient is a 31-year-old female who presents to ED today along with her grandmother whom she resides with for concerns of auditory hallucinations and trouble sleeping. Patient states she was up all night in and out of sleep. She states at one point she felt Rogelio come over her and states she felt to be in a perfect peace and states Rogelio asked her if she wanted to go home because if so he would take her. Patient states she told him she has kids so would like to stay [place]. Grandmother also states that patient feels like the grandmother is talking to her when she is not. She has a psychiatrist at [facility]. Patient is not suicidal or homicidal. Onset (ago): day(s) Duration: intermittent History of same: Yes Relieving factors: none Associated symptoms: Reports auditory hallucinations; Deny visual hallucinations, homicidal ideation or suicidal ideation Treatments prior to arrival: none Review of Systems Const: Denies: fever(s) or chills Card: Denies: chest pain, palpitations, lightheadedness or syncope Resp: Denies: dyspnea GI: Denies: abdominal pain, nausea, vomiting or diarrhea Skin/Breast: Denies: rash Neuro: Denies: headache(s) Psych: Reports: anxiety, sleeping less and auditory hallucinations; Denies: irritability, paranoia, visual hallucinations, suicidal ideation or homicidal ideation [facility] ED PFSH: Medical History delivery delivered Intermittent palpitations Nonspecific chest pain Psychiatric care Social History Smoking and tobacco status: never smoked Second hand smoke exposure: No Alcohol intake: never Female Reproductive History: Date of last menstrual period: 02/16/21 Physical Exam Const: COMMON NORMALS: no acute distress, patient oriented x3, no limitations and alert GENERAL APPEARANCE: cooperative NUTRITIONAL APPEARANCE: overweight ORIENTATION/CONSCIOUSNESS: Yes awake, Yes oriented to person, Yes oriented to place and Yes oriented to time HENMT: COMMON NORMALS: normocephalic and atraumatic HEAD & SCALP: normocephalic and atraumatic Neuro: RAVI COMA SCALE: document GCS findings Thurmond coma scale eye opening: Spontaneous Ravi coma scale verbal response: Orientated Ravi coma scale motor response: Obey commands Thurmond coma scale total score: 15 COMMON NORMALS: patient oriented x3 SENSORIUM/ORIENTATION: Yes alert, Yes oriented to person, Yes oriented to place and Yes oriented to time SPEECH: speech normal GAIT: Yes Normal gait present Psych: COMMON NORMALS: mental status grossly normal and speech normal APPEARANCE: Yes grossly normal ATTITUDE: Yes calm ACTIVITY/MOTOR BEHAVIOR: Yes appropriate eye contact SPEECH: Yes normal speech MOOD & AFFECT: Yes euthymic mood THOUGHT CONTENT: Yes Normal thought content present ATTENTION/CONCENTRATION: Yes attention grossly intact and Yes concentration grossly intact MEMORY/COGNITION: Yes memory grossly intact and Yes cognition grossly intact INSIGHT: Limited insight present (Psych) JUDGEMENT: Fair judgement present (Psych) Skin: COMMON NORMALS: no rashes or lesions noted GENERAL SKIN EXAM: no rashes or lesions noted Course Consultations: Consultation #1: Dr. Ham-would like patient admitted to NPU Vital Signs: Vital signs: Vital Signs Temperature 97.9 F 04/24/22 06:00 Pulse Rate 86 04/24/22 06:00 Respiratory Rate 16 04/24/22 06:00 Blood Pressure 123/85 04/24/22 06:00 Pulse Oximetry 97 04/24/22 06:00 Oxygen Delivery Me thod 04/22/22 06:00 MDM - Psych Medical Decision Making Patient will be a voluntary admit to NPU. Lab Data : 04/24/22 08:28 04/19/22 12:26 Laboratory Results WBC 9.5 10^3/uL (4.0-10.0) 04/19/22 12:26 RBC 4.58 10^6/uL (4.1-5.3) 04/19/22 12:26 Hgb 14.1 g/dL (11.5-15.3) 04/19/22 12:26 Hct 42.6 % (37.0-47.0) 04/19/22 12:26 MCV 93.0 fl (81-99) 04/19/22 12:26 MCH 30.8 pg (28.0-34.0) 04/19/22 12: MCHC 33.1 g/dL (30.0-36.0) 04/19/22 12: RDW 11.9 % (12.1-15.1) L 04/19/22 12: Plt Count 327 10^3/cmm (130-400) 04/19/22 12: MPV 8.9 fL (7.4-10.4) 04/19/22 12: Neut % (Auto) 61.8 % 04/19/22 12: Lymph % (Auto) 29.7 % 04/19/22 12: [place] % (Auto) 7.2 % 04/19/22 12: Eos % (Auto) 0.6 % 04/19/22 12: Baso % (Auto) 0.3 % 04/19/22 12: Neut # (Auto) 5.86 10^3/uL (1.8-7.7) 04/19/22 12: Lymph # (Auto) 2.8 10^3/uL (0.8-4.8) 04/19/22 12: [place] # (Auto) 0.7 10^3/uL (0.2-0.9) 04/19/22 12: Eos # (Auto) 0.1 10^3/uL (0.0-0.8) 04/19/22 12: Baso # (Auto) 0.0 10^3/uL (0.0-0.1) 04/19/22 12: Nucleated RBC % (auto) 0 % 04/19/22 12: Nucleated RBCs # 0.0 /100WBC 04/19/22 12: Sodium 141 mmol/L (136-145) 04/19/22 12:26 Potassium 3.7 mmol/L (3.5-5.1) 04/19/22 12: Chloride 102 mmol/L (98-107) 04/19/22 12: Carbon Dioxide 25 mmol/L (22-29) 04/19/22 12: Anion Gap 17.7 (5-19) 04/19/22 12:26 BUN 9 mg/dL (6-20) 04/19/22 12:26 Creatinine 0.8 mg/dL (0.5-0.9) 04/19/22 12:26 GFR Calculation 84.2 mL/min (90-130) L 04/19/22 12:26 Glucose 87 mg/dL (65-115) 04/19/22 12:26 Calculated Osmolality 290 mOsm/kg (285-295) 04/19/22 12:26 Calcium 10.6 mg/dL (8.5-10.5) H 04/19/22 12:26 Total Bilirubin 0.5 mg/dL (0.15-1.2) 04/19/22 12:26 AST 23 U/L (0-32) 04/19/22 12:26 ALT 46 U/L (0-33) H 04/19/22 12:26 Alkaline Phosphatase 131 IU/L (35-105) H 04/19/22 12:26 Total Protein 7.8 g/dL (6.6-8.7) 04/19/22 12:26 Albumin 4.7 g/dL (3.5-5.2) 04/19/22 12:26 Globulin 3.1 g/dL (1.3-4.6) 04/19/22 12:26 HCG, Qual Negative (Negative) 04/19/22 12:26 Salicylates < 0.3 mg/dL (3-10) L 04/19/22 12:26 Urine Opiates Screen Negative ng/mL (Negative) 04/19/22 12:25 Acetaminophen < 5.0 ug/mL (10-30) L 04/19/22 12:26 Ur Barbiturates Screen Negative ng/mL (Negative) 04/19/22 12:25 Ur Phencyclidine Scrn Negative ng/mL (Negative) 04/19/22 12:25 Ur Amphetamines Screen Negative ng/mL (Negative) 04/19/22 12:25 U Benzodiazepines Scrn Negative ng/mL (Negative) 04/19/22 12:25 Urine Cocaine Screen Negative ng/mL (Negative) 04/19/22 12:25 U Marijuana (THC) Screen Negative ng/mL (Negative) 04/19/22 12:25 Ethyl Alcohol < 10 mg/dL (0-10) 04/19/22 12:26 Discharge Plan Discharge Patient Disposition: Admitted As Inpatient Admit Provider: Inocencio Ham Clinical Impression: Auditory hallucination, Psychosis Condition: Stable Coding Level of Care Code ED Copper Plate Lithographer for Chg Fwd Exam Detailed Documented by User: Mini Ambrose MD 04/24/22 11:40 HPI - Psych General: Chief Complaint: Psychiatric Symptoms Stated Complaint: psych evalutaion Time Seen by Provider: 04/19/22 10:54 History of Present Illness: Patient is a 31-year-old female who presents to ED today along with her grandmother for concerns of auditory hallucinations and trouble sleeping. Patient states she was up all night in and out of sleep. She states at one point she felt Rogelio come over her and states she felt to be in a perfect peace and states Rogelio asked her if she wanted to go home because if so he would take her. Grandmother also states that patient reports that the grandmother is talking to her when she is not. She has a psychiatrist at [facility]. Patient is not suicidal or homicidal. [facility] ED PFSH: Medical History delivery delivered Intermittent palpitations Nonspecific chest pain Psychiatric care Social History Smoking and tobacco status: never smoked Second hand smoke exposure: No Alcohol intake: never Physical Exam Neuro: RAVI COMA SCALE: document GCS findings Thurmond coma scale total score: 15 Course Vital Signs: Vital signs: Vital Signs Temperature 97.9 F 04/24/22 06:00 Pulse Rate 86 04/24/22 06:00 Respiratory Rate 16 04/24/22 06:00 Blood Pressure 123/85 04/24/22 06:00 Pulse Oximetry 97 04/24/22 06:00 Oxygen Delivery Me thod 04/22/22 06:00 MDM - Psych Lab Data : 04/24/22 08:28 04/19/22 12:26 Laboratory Results WBC 9.5 10^3/uL (4.0-10.0) 04/19/22 12:26 RBC 4.58 10^6/uL (4.1-5.3) 04/19/22 12: Hgb 14.1 g/dL (11.5-15.3) 04/19/22 12: Hct 42.6 % (37.0-47.0) 04/19/22 12: MCV 93.0 fl (81-99) 04/19/22 12: MCH 30.8 pg (28.0-34.0) 04/19/22 12: MCHC 33.1 g/dL (30.0-36.0) 04/19/22 12: RDW 11.9 % (12.1-15.1) L 04/19/22 12: Plt Count 327 10^3/cmm (130-400) 04/19/22 12: MPV 8.9 fL (7.4-10.4) 04/19/22 12: Neut % (Auto) 61.8 % 04/19/22 12: Lymph % (Auto) 29.7 % 04/19/22 12: [place] % (Auto) 7.2 % 04/19/22 12: Eos % (Auto) 0.6 % 04/19/22 12: Baso % (Auto) 0.3 % 04/19/22: Neut # (Auto) 5.86 10^3/uL (1.8-7.7) 04/19/22 12: Lymph # (Auto) 2.8 10^3/uL (0.8-4.8) 04/19/22 12: [place] # (Auto) 0.7 10^3/uL (0.2-0.9) 04/19/22 12: Eos # (Auto) 0.1 10^3/uL (0.0-0.8) 04/19/22: Baso # (Auto) 0.0 10^3/uL (0.0-0.1) 04/19/22 12: Nucleated RBC % (auto) 0 % 04/19/22: Nucleated RBCs # 0.0 /100WBC 04/19/22 12: Sodium 141 mmol/L (136-145) 04/19/22 12: Potassium 3.7 mmol/L (3.5-5.1) 04/19/22 12:26 Chloride 102 mmol/L (98-107) 04/19/22 12:26 Carbon Dioxide 25 mmol/L (22-29) 04/19/22 12:26 Anion Gap 17.7 (5-19) 04/19/22 12:26 BUN 9 mg/dL (6-20) 04/19/22 12:26 Creatinine 0.8 mg/dL (0.5-0.9) 04/19/22 12:26 GFR Calculation 84.2 mL/min (90-130) L 04/19/22 12:26 Glucose 87 mg/dL (65-115) 04/19/22 12:26 Calculated Osmolality 290 mOsm/kg (285-295) 04/19/22 12:26 Calcium 10.6 mg/dL (8.5-10.5) H 04/19/22 12:26 Total Bilirubin 0.5 mg/dL (0.15-1.2) 04/19/22 12:26 AST 23 U/L (0-32) 04/19/22 12:26 ALT 46 U/L (0-33) H 04/19/22 12:26 Alkaline Phosphatase 131 IU/L (35-105) H 04/19/22 12:26 Total Protein 7.8 g/dL (6.6-8.7) 04/19/22 12:26 Albumin 4.7 g/dL (3.5-5.2) 04/19/22 12:26 Globulin 3.1 g/dL (1.3-4.6) 04/19/22 12:26 HCG, Qual Negative (Negative) 04/19/22 12:26 Salicylates < 0.3 mg/dL (3-10) L 04/19/22 12:26 Urine Opiates Screen Negative ng/mL (Negative) 04/19/22 12:25 Acetaminophen < 5.0 ug/mL (10-30) L 04/19/22 12:26 Ur Barbiturates Screen Negative ng/mL (Negative) 04/19/22 12:25 Ur Phencyclidine Scrn Negative ng/mL (Negative) 04/19/22 12:25 Ur Amphetamines Screen Negative ng/mL (Negative) 04/19/22 12:25 U Benzodiazepines Scrn Negative ng/mL (Negative) 04/19/22 12:25 Urine Cocaine Screen Negative ng/mL (Negative) 04/19/22 12:25 U Marijuana (THC) Screen Negative ng/mL (Negative) 04/19/22 12:25 Ethyl Alcohol < 10 mg/dL (0-10) 04/19/22 12:26 Discharge Plan Discharge Patient Disposition: Admitted As Inpatient Admit Provider: Inocencio Ham Clinical Impression: Auditory hallucination, Psychosis Condition: Stable Coding Level of Care Code ED Copper Plate Lithographer for Serina Fwd Exam Detailed
[2022-04-19 12:52] LABS: Basophils % 0.3 %; Eosinophils # 0.1 10^3/uL (0.0-0.8); Eosinophils % 0.6 %; Hematocrit 42.6 % (37.0-47.0); Hemoglobin 14.1 g/dL (11.5-15.3); Lymphocytes # 2.8 10^3/uL (0.8-4.8); Lymphocytes % 29.7 %; Mean Corpuscular HGB Conc 33.1 g/dL (30.0-36.0); Mean Corpuscular Hemoglobin 30.8 pg (28.0-34.0); Mean Platelet Volume 8.9 fL (7.4-10.4); Monocytes # 0.7 10^3/uL (0.2-0.9); Monocytes % 7.2 %; Neutrophils # 5.86 10^3/uL (1.8-7.7); Neutrophils % 61.8 %; Nucleated Red Blood Cells % 0 %; Platelet Count 327 10^3/cmm (130-400); Red Blood Count 4.58 10^6/uL (4.1-5.3); Red Cell Distribution Width 11.9 % (12.1-15.1); White Blood Count 9.5 10^3/uL (4.0-10.0)
[2022-04-19 13:12] LABS: Amphetamines Screen Urine Negative (Negative); Barbiturates Screen Urine Negative (Negative); Benzodiazepines Screen Urine Negative (Negative); Cocaine Screen Urine Negative (Negative); Opiate Screen Urine Negative (Negative); PCP Screen Urine Negative (Negative); THC Screen Urine Negative (Negative)
[2022-04-19 13:12] LABS: HCG, Serum Qual Negative (Negative)
[2022-04-19 13:19] LABS: Alanine Aminotransferase 46 U/L (0-33); Albumin Level 4.7 g/dL (3.5-5.2); Alkaline Phosphatase 131 IU/L (35-105); Anion Gap 17.7 (5-19); Aspartate Amino Transferase 23 U/L (0-32); Blood Urea Nitrogen 9 mg/dL (6-20); Calcium 10.6 mg/dL (8.5-10.5); Carbon Dioxide 25 mmol/L (22-29); Chloride 102 mmol/L (98-107); Globulin 3.1 g/dL (1.3-4.6); Glomerular Filtration Rate 84.2 mL/min (90-130); Glucose 87 mg/dL (65-115); Osmolality Calculated 290 mOsm/kg (285-295); Potassium 3.7 mmol/L (3.5-5.1); Sodium 141 mmol/L (136-145); Total Bilirubin 0.5 mg/dL (0.15-1.2); Total Protein 7.8 g/dL (6.6-8.7)
[2022-04-19 13:20] LABS: Acetaminophen < 5.0 ug/mL (10-30); Alcohol Level < 10 mg/dL (0-10); Salicylate < 0.3 mg/dL (3-10)
[2022-04-19 13:39] VITALS: BP 105/76; PULSE 98; RESP 16; TEMP 36.3; O2SAT 98
[2022-04-19 13:45] VITALS: BP 105/65; PULSE 98; RESP 14; TEMP 36.7; O2SAT 98
[2022-04-19 14:34] VITALS: BP 116/80; PULSE 96; RESP 16; TEMP 36.4; O2SAT 96
[2022-04-19] MEDS: OLANZapine 5 mg ODT PO (14:55)
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
--- NOTE | 2022-04-19 15:51 | PC.NURSE ---
Admission, psychiatric, physical and substance assessment charted under Sia Reyes by mistake. This RN completed the assessments.
[2022-04-19] MEDS: acetaminophen 325 mg Tablet 650 MG PO (16:52)
[2022-04-19] MEDS: doxycycline 100 mg Tablet PO (18:05)
[2022-04-19] MEDS: predniSONE 10 mg Tablet 20 MG PO (18:05)
[2022-04-19 20:08] VITALS: BP 90/60; PULSE 95; RESP 20; TEMP 36.4; O2SAT 96
[2022-04-19] MEDS: hyDROXYzine 25 mg Capsule 50 MG PO (21:10)
[2022-04-19] MEDS: aspirin 325 mg Tablet PO (21:10)
[2022-04-19] MEDS: trazodone 100 mg Tablet PO (21:10)
[2022-04-19 21:38] VITALS: PULSE 109; RESP 16; O2SAT 98
[2022-04-19] MEDS: albuterol 8 gm MDI 2 PUFF INHALATION (21:38)
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
--- NOTE | 2022-04-19 21:55 | PC.NURSE ---
Vistaril 50 mg PO given for anxiety at 21:10 with fair result.
[2022-04-20] MEDS: OLANZapine 5 mg ODT PO ×2 (01:11→18:11)
--- NOTE | 2022-04-20 01:55 | PC.NURSE ---
Patient came to nurses station C/O anxiety and agitation at 01:05. Spoke to patient about med options to ease her feelings. 5mg PO / SL zyprexa given wit good results. Patient resting calmly.
[2022-04-20 02:51] VITALS: BP 115/80; PULSE 103; RESP 20; TEMP 36.9; O2SAT 95
[2022-04-20] MEDS: pantoprazole DR 40 mg Tablet PO (05:31)
[2022-04-20 06:00] VITALS: BP 104/74; PULSE 104; RESP 20; TEMP 36.4; O2SAT 95
[2022-04-20] MEDS: divalproex ER 500 mg Tablet (24H) PO (08:40)
[2022-04-20] MEDS: doxycycline 100 mg Tablet PO ×2 (08:40→17:09)
[2022-04-20 10:19] VITALS: PULSE 122; RESP 18; O2SAT 99
[2022-04-20] MEDS: albuterol 8 gm MDI 2 PUFF INHALATION ×2 (10:19→23:06)
--- NOTE | 2022-04-20 11:27 | W.PM.NPUPNS ---
Subjective NPU Subjective: Patient is a 31 year old white female with bipolar I disorder admitted with psychotic symptoms along with mixed mood symptoms. Patient continued to spend hours walking the halls. 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 She reports that she needs to talk to the plaster and stucco worker of the hospital because she was better than the spirit of god. She reports that she has become more spiritual. Mental Status Exam MSE Comments: casually dressed pale white female who appeared her stated age and was cooperative on interview. Patient was alert and oriented to person, place and time. Her gait was adequate, Her mood was described as good Her affect was odd and bizarre. There was clear evidence of bizarre delusions regarding angels, prominent grandiosity. She did not appear to be responding to internal stimuli, there was no evidence of suicidal or homicidal ideation. Her attention was fair, insight : impaired judgment: poor impulse control : poor. Vitals/I&O/Wt Last Vital Signs Temp 97.8 F 04/20/22 18:44 Pulse 102 H 04/20/22 23:06 Resp 15 04/20/22 23:06 BP 138/82 04/20/22 18:44 Pulse Ox 98 04/20/22 23:06 O2 Del Method 04/20/22 23:06 Weight last 48 hrs Weight 88.451 kg Data NPU : 04/19/22 12:26 04/19/22 12:26 A&P Assessment and plan (1) Bipolar 1 disorder: Status: Acute (2) Psychosis: Status: Acute (3) Auditory hallucination: Status: Acute Plan 31 year old white female with history of bipolar disorder I with mixed symptoms currently with mixed episode with psychotic features. Patient willing to work with curriculum writer on changes in medications. admit for TO-15 minute checks Increase Depakote ER 1000mg in am tommorow continue Paliperidone 6mg at night to target psychosis. Involuntary Hold Information 96 Hour Hold: 96 Hour Involuntary Admission: No Attestations NPU Medical Necessity Statement*: Inpatient hospitalization is medically necessary and the clinically appropriate intervention at this time with care expected to last at least two midnights. We will monitor medications and make changes as indicated. Likely length of stay 5-7 days. Coding Level of Care Code Established Pt Acute Sociology Teacher for Vishnug Fwd Patient Type Established History Problem Focused Exam Problem Focused Medical Decision Making Straight Forward Diagnoses Bipolar 1 disorder F31.9 Psychosis F29 Auditory hallucination R44.0
[2022-04-20 14:00] VITALS: BP 120/83; PULSE 95; RESP 18; TEMP 36.4; O2SAT 96
[2022-04-20] MEDS: predniSONE 10 mg Tablet 20 MG PO (17:09)
[2022-04-20] MEDS: hyDROXYzine 25 mg Capsule 50 MG PO ×2 (17:11→23:33)
--- NOTE | 2022-04-20 17:11 | PC.NURSE ---
PRN MEDICATIONS PT AT NURSES STATION TO TAKE 1800 MEDS AND REQUESTED ANXIETY MEDICATIONS. PT APPEARS CALM AND COOPERATIVE, VISTARIL 50 MG GIVEN ORDERED.
[2022-04-20] MEDS: cholecalciferol (vitamin D3) 1,000 unit Tablet 500 UNIT PO (18:09)
[2022-04-20 18:44] VITALS: BP 138/82; PULSE 108; RESP 16; TEMP 36.6; O2SAT 99
[2022-04-20] MEDS: trazodone 100 mg Tablet PO (20:39)
[2022-04-20] MEDS: aspirin 325 mg Tablet PO (20:39)
[2022-04-20] MEDS: paliperidone ER 6 mg Tablet PO (22:27)
[2022-04-20 23:06] VITALS: PULSE 102; RESP 15; O2SAT 98
[2022-04-20] MEDS: acetaminophen 325 mg Tablet 650 MG PO (23:35)
[2022-04-21] MEDS: bismuth subsalicylate 240 mL Btl 15 ML PO ×3 (03:32→14:55)
[2022-04-21] MEDS: pantoprazole DR 40 mg Tablet PO (05:55)
[2022-04-21 06:00] VITALS: BP 116/79; PULSE 98; RESP 16; TEMP 36.6; O2SAT 99
[2022-04-21] MEDS: doxycycline 100 mg Tablet PO ×2 (08:25→20:42)
[2022-04-21] MEDS: divalproex ER 500 mg Tablet (24H) 1000 MG PO (08:25)
[2022-04-21] MEDS: cholecalciferol (vitamin D3) 1,000 unit Tablet 500 UNIT PO (08:26)
--- NOTE | 2022-04-21 08:27 | PC.NURSE ---
PRN PINK BISMUSTH 15 ML GIVEN PO PER PT C/O HEARTBURN
--- NOTE | 2022-04-21 13:34 | W.PM.NPUPNS ---
Subjective NPU Subjective: Patient is a 31 year old white female with bipolar I disorder admitted with psychotic symptoms along with mixed mood symptoms. Patient reports that she continues to believe in her short and reports spending time reading her bible. She reports that she continues to struggle with thinking clearly but reports feeling great. Patient has been intermittently engaged in the milieu but has been isolating self in room. She reports no side effects from medication. Mental Status Exam MSE Comments: casually dressed white female who appeared her stated age and was cooperative on interview. Patient was alert and oriented to person, place and time. Her gait was adequate, Her mood was described as good Her affect was odd and mood incongruent. There was clear evidence of grandiosity with reports of holiness and spiritual short. She did not appear to be responding to internal stimuli, there was no evidence of suicidal or homicidal ideation. Her attention was fair, insight : impaired judgment: poor impulse control : poor. Vitals/I&O/Wt Last Vital Signs Temp 98.2 F 04/21/22 13:53 Pulse 109 H 04/21/22 13:53 Resp 15 04/21/22 13:53 BP 130/88 04/21/22 13:53 Pulse Ox 99 04/21/22 13:53 O2 Del Method 04/21/22 13:53 Data NPU : 04/19/22 12:26 04/19/22 12:26 A&P Assessment and plan (1) Bipolar 1 disorder: Status: Acute (2) Psychosis: Status: Acute (3) Auditory hallucination: Status: Acute Plan 31 year old white female with history of bipolar disorder I with mixed symptoms currently with mixed episode with psychotic features. admit for TO-15 minute checks Increase Depakote ER 1000mg in am tommorow continue Paliperidone 6mg at night to target psychosis. Involuntary Hold Information 96 Hour Hold: 96 Hour Involuntary Admission: No Attestations NPU Medical Necessity Statement*: Inpatient hospitalization is medically necessary and the clinically appropriate intervention at this time with care expected to last at least two midnights. We will monitor medications and make changes as indicated. Likely length of stay 5-7 days. Coding Level of Care Code Established Pt Acute Family And Divorce Legal Assistant for Serina Chandler Patient Type Established History Problem Focused Exam Problem Focused Medical Decision Making Straight Forward Diagnoses Bipolar 1 disorder F31.9 Psychosis F29 Auditory hallucination R44.0
[2022-04-21 13:53] VITALS: BP 130/88; PULSE 109; RESP 15; TEMP 36.8; O2SAT 99
--- NOTE | 2022-04-21 14:56 | PC.NURSE ---
PRN PINK BISMUTH 15 ML GIVEN PO PER PT C/O HEARTBURN
[2022-04-21] MEDS: hyDROXYzine 25 mg Capsule 50 MG PO (17:26)
--- NOTE | 2022-04-21 17:27 | PC.NURSE ---
PRN VISTARIL 50 MG GIVEN PO PER PT C/O STATED ANXIETY, HR ELEVATED TO 120. WILL CONT TO MONITOR
[2022-04-21 19:43] VITALS: BP 104/66; PULSE 104; RESP 16; TEMP 36.9; O2SAT 96
[2022-04-21] MEDS: aspirin 325 mg Tablet PO (20:39)
[2022-04-21] MEDS: paliperidone ER 6 mg Tablet PO (20:42)
[2022-04-21] MEDS: trazodone 100 mg Tablet PO (20:43)
[2022-04-21] MEDS: predniSONE 10 mg Tablet PO (20:43)
[2022-04-21 23:08] VITALS: PULSE 103; RESP 15; O2SAT 97
[2022-04-22] MEDS: hyDROXYzine 25 mg Capsule 50 MG PO (05:02)
[2022-04-22] MEDS: pantoprazole DR 40 mg Tablet PO (05:03)
[2022-04-22 06:00] VITALS: BP 110/71; PULSE 107; RESP 18; TEMP 36.9; O2SAT 97
[2022-04-22] MEDS: doxycycline 100 mg Tablet PO ×2 (08:30→21:11)
[2022-04-22] MEDS: cholecalciferol (vitamin D3) 1,000 unit Tablet 500 UNIT PO (08:30)
[2022-04-22] MEDS: divalproex ER 500 mg Tablet (24H) 1000 MG PO (08:30)
[2022-04-22 14:00] VITALS: BP 103/66; PULSE 115; RESP 16; TEMP 36.4; O2SAT 95
--- NOTE | 2022-04-22 16:10 | P.NPUPN_ITS ---
Subjective NPU Subjective: Patient is a 31 year old white female with bipolar I disorder admitted with psychotic symptoms along with mixed mood symptoms. She reports that she had felt that her thoughts are racing. She reports having increased problems with managing her thoughts. She had reported some struggles with fa lling asleep. Staff notes the patient continued to require prompting for groups and remained minimally participative in the milieu. She reported no auditory hallucinations. 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 Mental Status Exam MSE Comments: casually dressed white female who appeared her stated age and was cooperative on interview. Patient was alert and oriented to person, place and time. Her gait was adequate, her hygiene was poor. Her mood was described as good Her affect remained odd and mood incongruent. There was clear evidence of ideas of reference and bizarre delusions. She did not appear to be responding to internal stimuli. There was no evidence of suicidal or homicidal ideation. Her attention was fair. Her insight was impaired. Her judgment was poor. Her impulse control : poor. Vitals/I&O/Wt Last Vital Signs Temp 97.6 F 04/22/22 14:00 Pulse 115 H 04/22/22 14:00 Resp 16 04/22/22 14:00 BP 103/66 04/22/22 14:00 Pulse Ox 95 04/22/22 14:00 O2 Del Method 04/22/22 06:00 Data NPU : 04/19/22 12:26 04/19/22 12:26 A&P Assessment and plan (1) Bipolar 1 disorder: Status: Acute (2) Psychosis: Status: Acute (3) Auditory hallucination: Status: Acute (4) Delusions: Status: Acute Plan 31 year old white female with history of bipolar disorder I with mixed symptoms currently with mixed episode with psychotic features. admit for TO-15 minute checks Continue Depakote ER 1000mg in am. increase Paliperidone 9mg at night to target psychosis. Involuntary Hold Information 96 Hour Hold: 96 Hour Involuntary Admission: No Attestations NPU Medical Necessity Statement*: Inpatient hospitalization is medically necessary and the clinically appropriate intervention at this time with care expected to last at least two midnights. We will monitor medications and make changes as indicated. Likely length of stay 5-7 days. Coding Level of Care Code Established Pt Acute Telegraph Dispatcher for Chg Fwd Patient Type Established History Problem Focused Exam Problem Focused Medical Decision Making Straight Forward Diagnoses Bipolar 1 disorder F31.9 Psychosis F29 Auditory hallucination R44.0 Delusions F22
[2022-04-22] MEDS: OLANZapine 5 mg ODT PO (18:39)
[2022-04-22] MEDS: bismuth subsalicylate 240 mL Btl 15 ML PO (19:39)
[2022-04-22 20:59] VITALS: BP 105/74; PULSE 109; RESP 17; O2SAT 97
[2022-04-22] MEDS: trazodone 100 mg Tablet PO (21:11)
[2022-04-22] MEDS: aspirin 325 mg Tablet PO (21:11)
[2022-04-22] MEDS: predniSONE 10 mg Tablet PO (21:11)
[2022-04-22] MEDS: paliperidone ER 6 mg Tablet PO (21:11)
[2022-04-23] MEDS: hyDROXYzine 25 mg Capsule 50 MG PO (02:06)
[2022-04-23] MEDS: bismuth subsalicylate 240 mL Btl 15 ML PO (04:26)
[2022-04-23 05:53] VITALS: RESP 17
[2022-04-23] MEDS: pantoprazole DR 40 mg Tablet PO (06:34)
[2022-04-23] MEDS: cholecalciferol (vitamin D3) 1,000 unit Tablet 500 UNIT PO (08:59)
[2022-04-23] MEDS: divalproex ER 500 mg Tablet (24H) 1000 MG PO (09:00)
[2022-04-23] MEDS: doxycycline 100 mg Tablet PO ×2 (09:02→21:01)
[2022-04-23] MEDS: docusate sodium 100 mg Capsule PO ×2 (09:02→12:47)
[2022-04-23] MEDS: OLANZapine 5 mg ODT PO (12:47)
[2022-04-23 14:00] VITALS: BP 112/82; PULSE 113; RESP 16; TEMP 36.9; O2SAT 98
--- NOTE | 2022-04-23 15:30 | P.NPUPN_ITS ---
Subjective NPU Subjective: Patient is a 31 year old white female with bipolar I disorder admitted with psychotic symptoms along with mixed mood symptoms. Continued time spent reading bible and reporting speciallness to flex o writer operator. Patient had visit from her grandmother, reports that her thoughts continue to accelerate. Patient reports continued bizarre somatic concerns speaking about constipation issues and reporting feeling less anxious now that her bowels are regular. She reported constipation on clomipramine. She reports depressed mood as well but reports no auditory hallucinations. She reports no feelings of hopelessness. She continues to appear directless on the unit. She reports some improved sleep. Mental Status Exam MSE Comments: casually dressed white female who appeared her stated age and was cooperative on interview. Patient was alert and oriented to person, place and time. Her gait was adequate, her hygiene was adequate. Her mood was described as okay Her affect remained odd and mood incongruent. There was clear evidence of ideas of reference and bizarre delusions. Hyperreligiousity noted and overvalued ideas. She did not appear to be responding to internal stimuli. There was no evidence of suicidal or homicidal ideation. Her attention was fair. Her insight was impaired. Her judgment was poor. Her impulse control : poor. Vitals/I&O/Wt Last Vital Signs Temp 98.4 F 04/23/22 14:00 Pulse 113 H 04/23/22 14:00 Resp 16 04/23/22 14:00 BP 112/82 04/23/22 14:00 Pulse Ox 98 04/23/22 14:00 O2 Del Method 04/22/22 06:00 Data NPU : 04/19/22 12:26 04/19/22 12:26 A&P Assessment and plan (1) Bipolar 1 disorder: Status: Acute (2) Psychosis: Status: Acute (3) Auditory hallucination: Status: Acute (4) Delusions: Status: Acute Plan 31 year old white female with history of bipolar disorder I with mixed symptoms currently with mixed episode with psychotic features. admit for TO-15 minute checks Continue Depakote ER 1000mg in am. increase Paliperidone 9mg at night to target psychosis. Check AST/ALT/CBC with Diff and Depakote level in am Involuntary Hold Information 96 Hour Hold: 96 Hour Involuntary Admission: No Attestations NPU Medical Necessity Statement*: Inpatient hospitalization is medically necessary and the clinically appropriate intervention at this time and we will monitor medications and make changes as indicated. Likely length of stay 5-7 days. Coding Level of Care Code Established Pt Acute Traffic Agent for Serina Chandler Patient Type Established History Problem Focused Exam Problem Focused Medical Decision Making Straight Forward Diagnoses Bipolar 1 disorder F31.9 Psychosis F29 Auditory hallucination R44.0 Delusions F22
[2022-04-23] MEDS: predniSONE 10 mg Tablet PO (21:01)
[2022-04-23] MEDS: aspirin 325 mg Tablet PO (21:01)
[2022-04-23] MEDS: trazodone 100 mg Tablet PO (21:02)
[2022-04-23] MEDS: paliperidone ER 3 mg Tablet 9 MG PO (21:02)
[2022-04-23 21:14] VITALS: BP 87/62; PULSE 92; RESP 17; TEMP 36.7; O2SAT 94
[2022-04-24] MEDS: bismuth subsalicylate 240 mL Btl 15 ML PO (02:58)
[2022-04-24] MEDS: hyDROXYzine 25 mg Capsule 50 MG PO ×2 (03:02→16:43)
[2022-04-24 06:00] VITALS: BP 123/85; PULSE 86; RESP 16; TEMP 36.6; O2SAT 97
[2022-04-24] MEDS: pantoprazole DR 40 mg Tablet PO (06:36)
[2022-04-24] MEDS: doxycycline 100 mg Tablet PO ×2 (08:17→20:41)
[2022-04-24] MEDS: cholecalciferol (vitamin D3) 1,000 unit Tablet 500 UNIT PO (08:17)
[2022-04-24] MEDS: divalproex ER 500 mg Tablet (24H) 1000 MG PO (08:17)
[2022-04-24 08:52] LABS: Basophils % 0.3 %; Eosinophils % 0.1 %; Hematocrit 41.3 % (37.0-47.0); Hemoglobin 14.1 g/dL (11.5-15.3); Lymphocytes # 2.5 10^3/uL (0.8-4.8); Lymphocytes % 27.4 %; Mean Corpuscular HGB Conc 34.1 g/dL (30.0-36.0); Mean Corpuscular Hemoglobin 30.5 pg (28.0-34.0); Mean Corpuscular Volume 89.2 fl (81-99); Mean Platelet Volume 9.1 fL (7.4-10.4); Monocytes # 0.7 10^3/uL (0.2-0.9); Neutrophils # 5.98 10^3/uL (1.8-7.7); Neutrophils % 64.7 %; Nucleated Red Blood Cells % 0 %; Platelet Count 355 10^3/cmm (130-400); Red Blood Count 4.63 10^6/uL (4.1-5.3); White Blood Count 9.3 10^3/uL (4.0-10.0)
[2022-04-24 09:19] LABS: Valproic Acid Level 119.6 ug/mL (50-100)
[2022-04-24 09:22] LABS: Alanine Aminotransferase 28 U/L (0-33); Aspartate Amino Transferase 17 U/L (0-32); Gamma Glutamyl Transferase 35 U/L (5-36); Lactate Dehydrogenase 197 U/L (135-214)
[2022-04-24 14:00] VITALS: BP 111/75; PULSE 106; RESP 15; TEMP 36.6; O2SAT 97
--- NOTE | 2022-04-24 14:01 | W.PM.NPUPNS ---
Subjective NPU Subjective: Patient is a 31 year old white female with bipolar I disorder admitted with psychotic symptoms along with mixed mood symptoms. Patient had depakote level drawn today, she reports no side effects from her medication. She continued to report reading her Bible and reports that she had been writing poetry. She reported less somatic complaints and appeared less distracted by her bowel movements. She continued to report having confusing thoughts and reported hearing sounds in her head. She denied any suicidal thoughts but reports that she came close to dying before she was saved. Staff notes the patient has been somewhat isolative on the milieu with little on her interaction during groups. Mental Status Exam MSE Comments: casually dressed white female who appeared her stated age and was cooperative on interview. Patient was alert and oriented to person, place and time. Her gait was adequate, her hygiene was adequate. Her mood was described as allright Her affect remained odd and mood incongruent. There was clear evidence of ideas of reference and bizarre delusions. Hyperreligiousity noted and overvalued ideas was present. She did not appear to be responding to internal stimuli. There was no evidence of suicidal or homicidal ideation. Her attention was fair. Her insight was impaired. Her judgment was poor. Her impulse control was poor. Vitals/I&O/Wt Last Vital Signs Temp 98 F 04/24/22 14:00 Pulse 106 H 04/24/22 14:00 Resp 15 04/24/22 14:00 BP 111/75 04/24/22 14:00 Pulse Ox 97 04/24/22 14:00 O2 Del Method 04/22/22 06:00 Weight last 48 hrs Weight 86.364 kg Data NPU : 04/24/22 08:28 04/19/22 12:26 A&P Assessment and plan (1) Bipolar 1 disorder: Status: Acute (2) Psychosis: Status: Acute (3) Auditory hallucination: Status: Acute (4) Delusions: Status: Acute Plan 31 year old white female with history of bipolar disorder I with mixed symptoms currently with mixed episode with psychotic features. admit for TO-15 minute checks Continue Depakote ER 1000mg in am. Continue Paliperidone 9mg at night to target psychosis. AST/ALT/CBC with Diff and Depakote level in am today, labs pending, will increase depakote if necessary. Involuntary Hold Information 96 Hour Hold: 96 Hour Involuntary Admission: No Attestations NPU Medical Necessity Statement*: Inpatient hospitalization is medically necessary and the clinically appropriate intervention at this time and we will monitor medications and make changes as indicated. Likely length of stay 5-7 days. 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
--- NOTE | 2022-04-24 16:44 | PC.NURSE ---
PRN VISTARIL 50 MG GIVEN PO PER PT C/O STATED ANXIETY
[2022-04-24] MEDS: predniSONE 10 mg Tablet PO (20:41)
[2022-04-24] MEDS: paliperidone ER 3 mg Tablet 9 MG PO (20:41)
[2022-04-24] MEDS: aspirin 325 mg Tablet PO (20:41)
[2022-04-24] MEDS: trazodone 100 mg Tablet PO (20:41)
[2022-04-24 20:43] VITALS: PULSE 113; RESP 18; O2SAT 98
[2022-04-24] MEDS: albuterol 8 gm MDI 2 PUFF INHALATION (20:44)
[2022-04-24 21:33] VITALS: BP 108/76; PULSE 108; RESP 20; TEMP 36.3; O2SAT 96
[2022-04-25 06:00] VITALS: BP 111/80; PULSE 104; RESP 18; TEMP 37.1; O2SAT 98
[2022-04-25] MEDS: pantoprazole DR 40 mg Tablet PO (06:31)
[2022-04-25] MEDS: divalproex ER 500 mg Tablet (24H) 1000 MG PO (07:56)
[2022-04-25] MEDS: cholecalciferol (vitamin D3) 1,000 unit Tablet 500 UNIT PO (07:57)
[2022-04-25] MEDS: doxycycline 100 mg Tablet PO ×2 (07:57→20:04)
[2022-04-25] MEDS: hyDROXYzine 25 mg Capsule 50 MG PO ×2 (07:57→20:04)
--- NOTE | 2022-04-25 07:58 | PC.NURSE ---
PRN VISTARIL 50 MG GIVEN PO PER PT C/O STATED ANXIETY
[2022-04-25] MEDS: OLANZapine 5 mg ODT PO ×2 (09:45→22:24)
[2022-04-25 14:00] VITALS: BP 109/74; PULSE 99; RESP 18; TEMP 36.9; O2SAT 97
--- NOTE | 2022-04-25 19:03 | W.PM.NPUPNS ---
Subjective NPU Subjective: Patient is a 31 year old white female with bipolar I disorder admitted with psychotic symptoms along with mixed mood symptoms. Patient had depakote level drawn which showed a level of 119 but this level appears to be after she took morning depakote. She reports no side effects from her medication. She continue to isolate herself on the milieu. She reported that she continued to work on her poetry. She reported at times feeling that her thoughts were still active but does report that the voices have quieted down. She reports that her depression has been better. She did report at times feeling tired. She continued to suggest that she had special abilities. Mental Status Exam MSE Comments: casually dressed white female who appeared her stated age and was cooperative on interview. Patient was alert and oriented to person, place and time. Her gait was adequate, her hygiene was adequate. Her mood was described as okay, Her affect remained odd and mood incongruent. There was clear evidence of ideas of reference and bizarre delusions. Hyperreligiousity was notable and overvalued ideas was present. She did not appear to be responding to internal stimuli. There was no evidence of suicidal or homicidal ideation. Her attention was fair. Her insight was impaired. Her judgment was poor. Her impulse control was poor. Vitals/I&O/Wt Last Vital Signs Temp 98.4 F 04/25/22 14:00 Pulse 99 04/25/22 14:00 Resp 18 04/25/22 14:00 BP 109/74 04/25/22 14:00 Pulse Ox 97 04/25/22 14:00 O2 Del Method 04/25/22 06:00 Weight last 48 hrs Weight 86.364 kg Data NPU : 04/24/22 08:28 04/19/22 12:26 A&P Assessment and plan (1) Bipolar 1 disorder: Status: Acute (2) Psychosis: Status: Acute (3) Auditory hallucination: Status: Acute (4) Delusions: Status: Acute Plan 31 year old white female with history of bipolar disorder I with mixed symptoms currently with mixed episode with psychotic features. admit for TO-15 minute checks Continue Depakote ER 1000mg in am. Continue Paliperidone 9mg at night to target psychosis. AST/ALT/CBC with Diff all within normal limits Redraw depakote level please for trough Involuntary Hold Information 96 Hour Hold: 96 Hour Involuntary Admission: No Attestations NPU Medical Necessity Statement*: Inpatient hospitalization is medically necessary and the clinically appropriate intervention at this time and we will monitor medications and make changes as indicated. Likely length of stay 5-7 days. 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
[2022-04-25 19:49] VITALS: BP 122/83; PULSE 106; RESP 16; TEMP 36.8; O2SAT 99
[2022-04-25] MEDS: aspirin 325 mg Tablet PO (20:04)
[2022-04-25] MEDS: paliperidone ER 3 mg Tablet 9 MG PO (20:04)
[2022-04-25] MEDS: trazodone 100 mg Tablet PO (20:04)
[2022-04-25] MEDS: predniSONE 10 mg Tablet PO (20:04)
[2022-04-26] MEDS: pantoprazole DR 40 mg Tablet PO (05:21)
[2022-04-26] MEDS: hyDROXYzine 25 mg Capsule 50 MG PO (05:41)
[2022-04-26 06:00] VITALS: BP 113/84; PULSE 108; RESP 16; TEMP 37; O2SAT 96
[2022-04-26] MEDS: divalproex ER 500 mg Tablet (24H) 1000 MG PO (09:31)
[2022-04-26] MEDS: doxycycline 100 mg Tablet PO ×2 (09:32→19:57)
[2022-04-26] MEDS: cholecalciferol (vitamin D3) 1,000 unit Tablet 500 UNIT PO (09:32)
[2022-04-26 09:54] LABS: Valproic Acid Level 140.3 ug/mL (50-100)
[2022-04-26] MEDS: OLANZapine 5 mg ODT PO (10:31)
[2022-04-26 14:00] VITALS: BP 112/89; PULSE 132; RESP 18; TEMP 36.4; O2SAT 100
--- NOTE | 2022-04-26 14:30 | P.NPUPN_ITS ---
Subjective NPU Subjective: Patient is a 31 year old white female with bipolar I disorder admitted with psychotic symptoms along with mixed mood symptoms. Patient had depakote level drawn in am at trough level with level at 140.3. Patient reports no side effects from medication. She reports that the thoughts are not racing as much. She reports that she continues to write her palms and read the Bible but did not endorse any special abilities or thoughts of being a chemist enzymes of her own gnosticism. She reports that she will return to her grandparents when she is stabilized. She does report hearing a voice. She did report that the thoughts continue to repeat in her head. She feels that maybe some of her anxiety is associated with PTSD . However, she was unable to describe any particular trauma that may have been causing her anxiety. She does report having difficulties with coping with her anxiety and continued to report having problems with managing her anxiety on a daily basis. She did not report having clear panic attacks on interview. Mental Status Exam MSE Comments: casually dressed white female who appeared her stated age and was cooperative on interview. Patient was alert and oriented to person, place and time. Her gait was adequate, her hygiene was adequate. Her mood was described as good. Her affect remained odd and bizarre at times. There was continued Hyperreligiousity but less overt delusions noted. She did not appear to be responding to internal stimuli. There was no evidence of suicidal or homicidal ideation. Her attention was fair. Her insight was impaired. Her judgment was poor. Her impulse control was poor. Vitals/I&O/Wt Last Vital Signs Temp 97.5 F L 04/26/22 14:00 Pulse 132 H 04/26/22 14:00 Resp 18 04/26/22 14:00 BP 112/89 04/26/22 14:00 Pulse Ox 100 04/26/22 14:00 O2 Del Method 04/26/22 14:00 Data NPU : 04/24/22 08:28 04/19/22 12:26 A&P Assessment and plan (1) Bipolar 1 disorder: Status: Acute (2) Psychosis: Status: Acute (3) Auditory hallucination: Status: Acute (4) Delusions: Status: Acute Plan 31 year old white female with history of bipolar disorder I with mixed symptoms currently with mixed episode with psychotic features. admit for TO-15 minute checks Reduce Depakote ER 750mg in am. Continue Paliperidone 9mg at night to target psychosis. Disposition: to grandmother and home when stabilized. Involuntary Hold Information 96 Hour Hold: 96 Hour Involuntary Admission: No Attestations NPU Medical Necessity Statement*: Inpatient hospitalization is medically necessary and the clinically appropriate intervention at this time and we will monitor medications and make changes as indicated. Likely length of stay 2-3 days. 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
[2022-04-26] MEDS: predniSONE 10 mg Tablet PO (19:57)
[2022-04-26] MEDS: trazodone 100 mg Tablet PO (19:57)
[2022-04-26] MEDS: aspirin 325 mg Tablet PO (19:57)
[2022-04-26] MEDS: paliperidone ER 3 mg Tablet 9 MG PO (19:57)
[2022-04-26 20:17] VITALS: BP 121/81; PULSE 123; RESP 16; TEMP 36.6; O2SAT 98
[2022-04-26] MEDS: ondansetron 4 MG Tablet PO (21:29)
[2022-04-27 06:00] VITALS: BP 115/80; PULSE 94; RESP 16; TEMP 36.8; O2SAT 99
[2022-04-27] MEDS: pantoprazole DR 40 mg Tablet PO (06:25)
[2022-04-27] MEDS: cholecalciferol (vitamin D3) 1,000 unit Tablet 500 UNIT PO (09:51)
[2022-04-27] MEDS: doxycycline 100 mg Tablet PO ×2 (09:51→22:20)
[2022-04-27] MEDS: divalproex ER 250 mg Tablet (24H) 750 MG PO (09:51)
[2022-04-27 11:30] VITALS: PULSE 78; RESP 18; O2SAT 98
[2022-04-27 11:40] VITALS: PULSE 84
[2022-04-27] MEDS: albuterol 8 gm MDI 2 PUFF INHALATION (11:40)
[2022-04-27 14:00] VITALS: BP 133/82; PULSE 116; RESP 17; O2SAT 98
--- NOTE | 2022-04-27 14:27 | W.PM.NPUPNS ---
Subjective NPU Subjective: Patient is a 31 year old white female with bipolar I disorder admitted with psychotic symptoms along with mixed mood symptoms. She continues to isolate herself on the milieu. She had reported considerable concerns still about her heart and somehow felt that this was related to her active problems with her thoughts. She had continued to report having some believes that her problems in her thoughts were a sign that she needs to be better. She had reported that she did feel that her thoughts were slowing down and reported that her voices were quieter. She did not endorse any thoughts of hurting herself at this time. She continued to report feeling that others were dismissing her and not believing her when she said that she had physical problems. Mental Status Exam MSE Comments: casually dressed white female who appeared her stated age and was cooperative on interview. Patient was alert and oriented to person, place and time. Her gait was adequate, her hygiene was adequate. Her mood was described as better Her affect remained odd. There was continued hyperreligiousity and continued overvalued ideas with continued somatic delusions. She did not appear to be responding to internal stimuli. There was no evidence of suicidal or homicidal ideation. Her attention was fair. Her insight was impaired. Her judgment was poor. Her impulse control was poor. Vitals/I&O/Wt Last Vital Signs Temp 98.3 F 04/27/22 06:00 Pulse 94 04/27/22 06:00 Resp 16 04/27/22 06:00 BP 115/80 04/27/22 06:00 Pulse Ox 99 04/27/22 06:00 O2 Del Method 04/26/22 14:00 Data NPU : 04/24/22 08:28 04/19/22 12:26 A&P Assessment and plan (1) Bipolar 1 disorder: Status: Acute (2) Psychosis: Status: Acute (3) Auditory hallucination: Status: Acute (4) Delusions: Status: Acute Plan 31 year old white female with history of bipolar disorder I with mixed symptoms currently with mixed episode with psychotic features. admit for TO-15 minute checks Continue Depakote ER 750mg in am. Continue lithium as prescribed. Continue Paliperidone 9mg at night to target psychosis. Disposition: to grandmother and home when stabilized. Patient still appears psychotic. Involuntary Hold Information 96 Hour Hold: 96 Hour Involuntary Admission: No Attestations NPU Medical Necessity Statement*: Inpatient hospitalization is medically necessary and the clinically appropriate intervention at this time and we will monitor medications and make changes as indicated. Likely length of stay 3-5 days. 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
[2022-04-27 20:45] VITALS: BP 115/68; PULSE 115; RESP 18; TEMP 36.8; O2SAT 100
[2022-04-27] MEDS: aspirin 325 mg Tablet PO (22:19)
[2022-04-27] MEDS: paliperidone ER 3 mg Tablet 9 MG PO (22:20)
[2022-04-27] MEDS: predniSONE 10 mg Tablet PO (22:20)
[2022-04-27] MEDS: trazodone 50 mg Tablet PO (22:21)
[2022-04-28 06:00] VITALS: BP 117/84; PULSE 114; RESP 18; TEMP 36.9; O2SAT 98
[2022-04-28] MEDS: hyDROXYzine 25 mg Capsule 50 MG PO ×3 (06:00→21:31)
[2022-04-28] MEDS: pantoprazole DR 40 mg Tablet PO (06:01)
[2022-04-28] MEDS: doxycycline 100 mg Tablet PO ×2 (09:10→21:30)
[2022-04-28] MEDS: divalproex ER 250 mg Tablet (24H) 750 MG PO (09:11)
[2022-04-28] MEDS: acetaminophen 325 mg Tablet 650 MG PO (09:11)
[2022-04-28] MEDS: docusate sodium 100 mg Capsule PO (09:12)
[2022-04-28] MEDS: cholecalciferol (vitamin D3) 1,000 unit Tablet 500 UNIT PO (09:12)
[2022-04-28] MEDS: OLANZapine 5 mg ODT PO (13:07)
[2022-04-28 14:00] VITALS: BP 111/73; PULSE 86; RESP 17; TEMP 37.1; O2SAT 92
--- NOTE | 2022-04-28 14:37 | W.PM.NPUPNS ---
Subjective NPU Subjective: Patient presents today reporting she is feeling better. We discussed the changes in her medication and concerns about her Depakote level. We agreed we would recheck her Depakote level in the morning a trough level so that we have a clear sense where her medications are. Discussed that we would then either leave the medications as they are or make a change in the medication. We discussed the likely discharge tomorrow after reaching out to her family to make sure they are prepared to support her and make sure she is able to get to her appointments etc. Mental Status Exam MSE Comments: This is an obese short white female with hospital scrubs on with adequate grooming and improving eye contact. No abnormal movements except for psychomotor retardation. Cooperative with exam in no acute distress. Speech was decreased rate and more normal volume. Mood described as getting better, affect subdued/flat. Thought process organized. Thought content: Patient denied suicidal or homicidal ideation, there were no delusions reported and she is less guarded, she did not report any auditory or visual hallucinations. Attention and concentration were intact, and memory was more reliable but none were formally tested. She alert and oriented times 3. Insight and judgment are limited, but improving, impulse control is limited but improving. Vitals/I&O/Wt Last Vital Signs Temp 98.2 F 04/28/22 20:43 Pulse 84 04/28/22 20:43 Resp 16 04/28/22 20:43 BP 109/72 04/28/22 20:43 Pulse Ox 97 04/28/22 20:43 O2 Del Method 04/28/22 20:43 Data NPU : 04/24/22 08:28 04/19/22 12:26 A&P Assessment and plan (1) Bipolar 1 disorder: Status: Acute (2) Psychosis: Status: Acute (3) Auditory hallucination: Status: Acute (4) Delusions: Status: Acute Plan 31 year old white female with history of bipolar disorder I with mixed symptoms currently with mixed episode with psychotic features. Continue TO-15 minute checks Continue Depakote ER 750mg in am. We will get a trough level before her morning dose. Continue Paliperidone 9mg at night to target psychosis. Continue individual, group and milieu therapies. Disposition: to grandmother and home when stabilized. Involuntary Hold Information 96 Hour Hold: 96 Hour Involuntary Admission: No Attestations NPU Medical Necessity Statement*: Inpatient hospitalization is medically necessary and the clinically appropriate intervention at this time and we will monitor medications and make changes as indicated. Likely length of stay 1-3 days. 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
[2022-04-28 20:43] VITALS: BP 109/72; PULSE 84; RESP 16; TEMP 36.8; O2SAT 97
[2022-04-28] MEDS: paliperidone ER 3 mg Tablet 9 MG PO (21:29)
[2022-04-28] MEDS: aspirin 325 mg Tablet PO (21:30)
[2022-04-28] MEDS: trazodone 50 mg Tablet PO (21:30)
[2022-04-28] MEDS: predniSONE 10 mg Tablet PO (21:31)
[2022-04-29 06:00] VITALS: BP 104/76; PULSE 135; RESP 18; TEMP 36.8; O2SAT 95
[2022-04-29] MEDS: pantoprazole DR 40 mg Tablet PO (06:07)
[2022-04-29] MEDS: hyDROXYzine 25 mg Capsule 50 MG PO (06:08)
[2022-04-29] MEDS: cholecalciferol (vitamin D3) 1,000 unit Tablet 500 UNIT PO (09:27)
[2022-04-29] MEDS: docusate sodium 100 mg Capsule PO (09:27)
[2022-04-29 10:39] LABS: Valproic Acid Level 95.6 ug/mL (50-100)
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
[2022-04-29] MEDS: OLANZapine 5 mg ODT PO (13:02)
[2022-04-29 13:09] VITALS: BP 104/76; RESP 18; TEMP 36.8; O2SAT 95
--- NOTE | 2022-04-29 14:11 | PC.NURSE ---
Left voice message on grandmothers voicemail to return call.
== END 2022-04-29 14:45 | disposition home or self-care (01) | DRG 885 ==
LOC: ER 11:54 → NP 13:42
PROVIDERS: Psychiatry & Neurology Psychiatry; Admitting Provider Psychiatry & Neurology Psychiatry; Emergency Provider Physician Assistant; PCP Family Medicine; Visit Provider Psychiatry & Neurology Psychiatry
DX: F31.60 Bipolar disorder, current episode mixed, unspecified (principal); Z81.8 Family history of other mental and behavioral disorders
CPT/HCPCS: 36415; 80053; 80164; 80306; 80307; 82977; 83615; 84450; 84460; 84703; 85025; 94640; 97150; 97165; 99285; J3535; J7512; Q0162

== ENCOUNTER 2022-05-02 04:42 | Emergency (ER) | payer MEDICAID, SELFPAY ==
--- NOTE | 2022-05-02 04:45 | ECG_ITS ---
Test Date: 2022-05-02 Pat Name: Kathi Torres Department: Room: Gender: Female [employer] [employer]: : 1990 Requested By: Dequan Acuña Order Number: [id number] Odilon MD: Fab Stephens M.D. Measurements Intervals [place] Rate: 96 P: 24 RI: 158 QRS: -5 QRSD: 94 T: 17 QT: 342 QTc: 432 Interpretive Statements SINUS RHYTHM LOW QRS VOLTAGE IN PRECORDIAL LEADS [QRS DEFLECTION < 1.0 mV IN CHEST LEADS] POSSIBLE ANTERIOR MYOCARDIAL INFARCTION , PROBABLY OLD [30 ms Q WAVE IN V3/V4, OR R < 0.2 mV IN V4] Compared to ECG 04/18/2022 10:47:52 Low QRS voltage now present Sinus tachycardia no longer present Myocardial infarct finding still present Electronically Signed On 05-02-2022 13:11:59 CDT by Fab Stephens M.D. [email or web address]
--- NOTE | 2022-05-02 04:45 | XRR_ITS ---
PROCEDURE INFORMATION: Exam: XR Chest Exam date and time: 05/02/2022 4:57 AM Age: 31 years old Clinical indication: Sternal or substernal pain; Additional info: SOB TECHNIQUE: Imaging protocol: Radiologic exam of the chest. Views: 1 view. COMPARISON: CR (CHEST, ) 04/16/2022 5:36 PM FINDINGS: Lungs: The lung parenchyma is clear. Pleural spaces: No pneumothorax. No pleural effusion. Heart/Mediastinum: The cardiac silhouette is at the upper limits of normal, unchanged from prior exam. Bones/joints: Unremarkable. XR/XR chest 1V portable [id number] IMPRESSION: 1. No acute cardiopulmonary abnormality identified. 2. The cardiac silhouette is at the upper limits of normal, unchanged from prior exam.
--- NOTE | 2022-05-02 04:47 | ED_ITS ---
HPI - SOB/Dyspnea General: Chief Complaint: Shortness of Breath/Dyspnea Stated Complaint: SOB Time Seen by Provider: 05/02/22 04:45 Source: patient and EMS Mode of arrival: EMS Limitations: no limitations History of Present Illness: HPI Narrative: 31-year-old female states that she woke up this morning felt like she was not getting her full area and states she is having some slight shortness of breath. States this had started roughly an hour ago she is feeling improved currently and states her dyspnea is mild she is in no distress here he denies any pain denies any fever denies any cough. She denies any vomiting or diarrhea. Associated symptoms: Deny abdominal pain, chest pain, fever(s), nausea or vomiting Review of Systems Const: Denies: fever(s), chills, body aches or change in appetite Eyes: Denies: blurry vision or eye discomfort ENMT: Denies: throat pain or dental pain Card: Denies: chest pain Resp: Reports: dyspnea GI: Denies: abdominal pain, nausea, vomiting or diarrhea : Denies: dysuria Musc: Denies: neck pain or back pain Skin/Breast: Denies: rash Neuro: Denies: headache(s) Psych: Denies: depression Sang/Lymph: Denies: easy bruising All/Imm: Denies: urticaria PFSH ED PFSH: Medical History delivery delivered Intermittent palpitations Nonspecific chest pain Psychiatric care Social History Smoking and tobacco status: never smoked Second hand smoke exposure: No Alcohol intake: never Female Reproductive History: Date of last menstrual period: 02/16/21 Physical Exam Const: COMMON NORMALS: no acute distress, patient oriented x3 and healthy appearing HENMT: COMMON NORMALS: normocephalic and atraumatic HEAD & SCALP: normocephalic and atraumatic Eye: COMMON NORMALS: Equal, round and reactive pupils present and EOMs intact bilaterally PUPIL: Yes Equal, round and reactive pupils present Neck/C-Spine: COMMON NORMALS: full ROM and supple Chest: COMMONS NORMALS: normal inspection of the chest and normal palpation of entire chest wall Resp: COMMON NORMALS: normal respiratory effort, No retractions, No use of accessory muscles and clear to auscultation bilaterally AUSCULTATION: clear to auscultation bilaterally Cardio: COMMON NORMALS: regular rate, regular rhythm and No murmurs present (Cardio) RATE: regular rate RHYTHM: regular rhythm GI: COMMON NORMALS: Normal to inspection, nondistended, normoactive bowel sounds present, Soft to palpation, non-tender and no masses PALPATION: Yes Soft to palpation Extremity: COMMON NORMALS: normal to inspection and full ROM Neuro: COMMON NORMALS: patient oriented x3, moves all extremities and no focal motor deficits Psych: COMMON NORMALS: mental status grossly normal, Normal thought process present and cooperative THOUGHT PROCESS: Normal thought process present Skin: COMMON NORMALS: no rashes or lesions noted and no wounds GENERAL SKIN EXAM: no rashes or lesions noted Course Vital Signs: Vital signs: Vital Signs Temperature 97.9 F 05/02/22 04:48 Pulse Rate 93 05/02/22 04:56 Respiratory Rate 17 05/02/22 04:56 Blood Pressure 113/74 05/02/22 04:56 Pulse Oximetry 96 05/02/22 04:56 Oxygen Delivery Me thod 05/02/22 04:48 MDM - SOB/Dyspnea Medical Decision Making Patient presents here with dyspnea history of anxiety she is well-appearing here she is in no distress COVID-negative x-ray is normal she is stable for discharge she is follow-up with PCP and return if worsening she understands agrees to plan. Lab Data Labs/Radiology: Laboratory Results SARS-CoV-2 Ag (Rapid) Negative (Negative) 05/02/22 04:49 EKG Data EKG 1: I personally reviewed and interpreted this EKG as follows: EKG Interpretation Date: 05/02/22 EKG interpretation time: 04:53 Interpretation: nsr hr [address] or t wave abnormalities qrs 94 qtc 395 Discharge Plan Discharge Patient Disposition: Home Clinical Impression: Dyspnea Condition: Stable Prescriptions: No Action hydroxyzine HCl 50 mg tablet 50 mg PO QID PRN (Reason: anxiety) Qty: 120 2RF aspirin 325 mg tablet 325 mg PO BEDTIME trazodone 100 mg tablet 100 mg PO BEDTIME doxycycline hyclate 100 mg capsule 100 mg PO BID omeprazole 20 mg Capsule,Delayed Release(Dr/Ec) 20 mg PO QAM Ventolin HFA 90 mcg/actuation Hfa Aerosol Inhaler 2 puff INHALATION QID PRN (Reason: Shortness Of Breath) Vitamin D3 tablet 500 units PO DAILY paliperidone 3 mg Tablet Extended Release 24hr 9 mg PO 2100 30 Days Qty: 90 1RF olanzapine 5 mg Tablet,Disintegrating 5 mg PO DAILY PRN (Reason: Agitation/Psychosis) 30 Days Qty: 30 1RF divalproex 250 mg Tablet Extended Release 24 Hr 750 mg PO DAILY 30 Days Qty: 90 1RF Discharge Orders: Discharge ED (Routine); Ordered 05/02/22 Ordered By: Dequan Acuañ Referrals: Emory Fuentes MD [Primary Care Provider] - 1-3 days Discharge Diet: Advance as tolerated Discharge Activity: Resume usual activity Patient Instructions: Dyspnea (ED) Coding Level of Care Code ED Oil Pipe Inspector Helper for Serina Fwkendrick Exam Comprehensive
[2022-05-02 04:48] VITALS: BP 149/83; PULSE 99; RESP 17; TEMP 36.6; O2SAT 97; BMI 39.7
[2022-05-02 04:56] VITALS: BP 113/74; PULSE 93; RESP 17; O2SAT 96
[2022-05-02] MEDS: LORazepam 1 mg Tablet PO (05:11)
[2022-05-02 05:19] LABS: SARS Covid-2 Antigen Negative (Negative)
[2022-05-02 05:30] VITALS: BP 113/74; PULSE 93; RESP 17; O2SAT 96
== END 2022-05-02 05:31 | disposition home or self-care (01) ==
PROVIDERS: Emergency Provider Emergency Medicine; PCP Family Medicine
DX: R06.00 Dyspnea, unspecified (principal); Z79.82 Long term (current) use of aspirin; Z20.822 Contact with and (suspected) exposure to COVID-19
CPT/HCPCS: 71045; 87426; 93005; 99284

== ENCOUNTER 2022-05-10 13:53 | Emergency (ER) | payer MEDICAID, SELFPAY ==
[2022-05-10 13:56] VITALS: BP 158/94; PULSE 127; RESP 18; TEMP 36.8; O2SAT 97; BMI 39.7
--- NOTE | 2022-05-10 14:11 | W.ED.ANXIETY ---
HPI - Anxiety General: Chief Complaint: Anxiety Stated Complaint: anxiety Time Seen by Provider: 05/10/22 14:03 Source: patient Mode of arrival: ambulatory Limitations: no limitations History of Present Illness: Patient is a 31-year-old female who is extremely well-known to our emergency department here for complaints of anxiety. Patient has a longstanding history of anxiety. I have personally seen patient countless times and anxiety is always one of her many complaints. Recently was admitted to [facility]. She had several medications adjusted and started during this visit. She has questions in regards to some of these. Patient is not suicidal or homicidal. She is not having active hallucinations or psychosis. MD complaint: anxiety Onset (ago): year(s) Severity: moderate Quality: intermittent Place: home History of similar episodes: Yes Associated symptoms: Reports no associated symptoms; Deny chest pain, chills, fever(s), malaise, nausea, palpitations, syncope or vomiting Review of Systems Const: Denies: fever(s), chills, body aches, fatigue or malaise Card: Denies: chest pain, palpitations, lightheadedness, syncope or pre-syncope Resp: Denies: dyspnea GI: Denies: abdominal pain, nausea, vomiting or diarrhea Neuro: Denies: numbness in extremities, weakness in extremities, sensory changes or dizziness Psych: Reports: anxiety; Denies: visual hallucinations, auditory hallucinations, suicidal ideation or homicidal ideation [facility] ED PFSH: Medical History delivery delivered Intermittent palpitations Nonspecific chest pain Psychiatric care Social History Smoking and tobacco status: never smoked Second hand smoke exposure: No Alcohol intake: never Female Reproductive History: Date of last menstrual period: 02/16/21 Physical Exam Const: COMMON NORMALS: no acute distress, patient oriented x3, no limitations and alert GENERAL APPEARANCE: cooperative ORIENTATION/CONSCIOUSNESS: Yes awake, Yes oriented to person, Yes oriented to place and Yes oriented to time Resp: COMMON NORMALS: normal respiratory effort and clear to auscultation bilaterally AUSCULTATION: clear to auscultation bilaterally Cardio: COMMON NORMALS: regular rate and regular rhythm RATE: regular rate RHYTHM: regular rhythm Neuro: RAVI COMA SCALE: document GCS findings Ravi coma scale eye opening: Spontaneous [place] coma scale verbal response: Orientated Ravi coma scale motor response: Obey commands Ravi coma scale total score: 15 COMMON NORMALS: patient oriented x3, CN's II-XII intact bilaterally, moves all extremities, no focal motor deficits, no sensory deficits noted and gait normal SENSORIUM/ORIENTATION: Yes alert, Yes oriented to person, Yes oriented to place and Yes oriented to time Psych: COMMON NORMALS: Normal thought process present and speech normal APPEARANCE: Yes grossly normal ATTITUDE: Yes calm ACTIVITY/MOTOR BEHAVIOR: Yes appropriate eye contact SPEECH: Yes normal speech MOOD & AFFECT: Yes euthymic mood THOUGHT PROCESS: Normal thought process present THOUGHT CONTENT: Yes Normal thought content present ATTENTION/CONCENTRATION: Yes attention grossly intact and Yes concentration grossly intact MEMORY/COGNITION: Yes memory grossly intact and Yes cognition grossly intact INSIGHT: Fair insight present (Psych) JUDGEMENT: Good judgement present (Psych) Course Vital Signs: Vital signs: Vital Signs Temperature 98.2 F 05/10/22 15:00 Pulse Rate 129 H 05/10/22 15:00 Respiratory Rate 18 05/10/22 15:00 Blood Pressure 130/94 05/10/22 15:00 Pulse Oximetry 95 05/10/22 15:00 Oxygen Delivery Me thod 05/10/22 15:00 MDM - Anxiety Medical Decision Making Patient's medications from her recent hospitalization were reviewed and explained to patient thoroughly. She has an outpatient psychiatrist through [facility]. Ultimately patient is not suicidal or homicidal and poses no imminent risk to herself or others. She does not require hospitalization. I told her from an emergency department I am not going to adjust or change any of the medications that she was recently started on and this can be completed outpatient. Patient is stable for discharge. Discharge Plan Discharge Patient Disposition: Home Clinical Impression: Anxiety Condition: Stable Prescriptions: No Action hydroxyzine HCl 50 mg tablet 50 mg PO QID PRN (Reason: anxiety) Qty: 120 2RF aspirin 325 mg tablet 325 mg PO BEDTIME trazodone 100 mg tablet 100 mg PO BEDTIME omeprazole 20 mg Capsule,Delayed Release(Dr/Ec) 20 mg PO QAM Ventolin HFA 90 mcg/actuation Hfa Aerosol Inhaler 2 puff INHALATION QID PRN (Reason: Shortness Of Breath) Vitamin D3 tablet 500 units PO DAILY paliperidone 3 mg Tablet Extended Release 24hr 9 mg PO 2100 30 Days Qty: 90 1RF olanzapine 5 mg Tablet,Disintegrating 5 mg PO DAILY PRN (Reason: Agitation/Psychosis) 30 Days Qty: 30 1RF divalproex 250 mg Tablet Extended Release 24 Hr 750 mg PO DAILY 30 Days Qty: 90 1RF Discharge Orders: Discharge ED (Routine); Ordered 05/10/22 Ordered By: Ana Alanis Referrals: Emory Fuentes MD [Primary Care Provider] - Patient Instructions: Anxiety (ED) Activity Restrictions/Additional Instructions: As we discussed you need to follow-up with Dr. Morgan your outpatient psychiatrist for further evaluation and treatment of your anxiety. On your last psychiatric hospitalization Dr. Inman increased your Invega to 9mg daily and placed you on 750 mg of Divalproex (take 3 of the 250mg tabs) daily. Continue taking the Olanzapine 5mg up to 3x daily as needed. Coding Level of Care Code ED Food Service Sales Representatives for Serina Chandler
[2022-05-10] MEDS: LORazepam 1 mg Tablet PO (14:48)
[2022-05-10 15:00] VITALS: BP 130/94; PULSE 129; RESP 18; TEMP 36.8; O2SAT 95
[2022-05-10 15:06] VITALS: BP 130/94; PULSE 129; RESP 18; TEMP 36.8; O2SAT 95
== END 2022-05-10 15:13 | disposition home or self-care (01) ==
PROVIDERS: Emergency Provider Physician Assistant; PCP Family Medicine
DX: F41.9 Anxiety disorder, unspecified (principal); Z79.82 Long term (current) use of aspirin
CPT/HCPCS: 99283

== ENCOUNTER 2022-05-17 19:49 | Emergency (ER) | payer MEDICAID, SELFPAY ==
[2022-05-17 20:00] VITALS: BP 142/88; PULSE 101; RESP 16; TEMP 36.8; O2SAT 96
--- NOTE | 2022-05-17 21:28 | ED_ITS ---
HPI - General Adult General: Stated complaint: ANXIETY Time Seen by Provider: 05/17/22 21:01 Source: patient and EMS Mode of arrival: EMS Limitations: no limitations History of Present Illness: 31-year-old female with a history of chronic anxiety she states that she was ran out of her Zyprexa she been having some increasing anxiety she denies any suicidal or homicidal thoughts she denies any worsening improving factors she is well-appearing here under no distress. Associated symptoms: Deny chest pain, dyspnea, headache(s), nausea, rash or vomiting Review of Systems Const: Denies: fever(s), chills, body aches or change in appetite Eyes: Denies: blurry vision or eye discomfort ENMT: Denies: throat pain or dental pain Card: Denies: chest pain Resp: Denies: dyspnea GI: Denies: abdominal pain, nausea, vomiting or diarrhea : Denies: dysuria Musc: Denies: neck pain or back pain Skin/Breast: Denies: rash Neuro: Denies: headache(s) Psych: Reports: anxiety; Denies: depression Sang/Lymph: Denies: easy bruising All/Imm: Denies: urticaria PFSH ED PFSH: Medical History delivery delivered Intermittent palpitations Nonspecific chest pain Psychiatric care Social History Smoking and tobacco status: never smoked Second hand smoke exposure: No Alcohol intake: never Female Reproductive History: Date of last menstrual period: 02/16/21 Physical Exam Const: COMMON NORMALS: no acute distress, patient oriented x3 and healthy appearing HENMT: COMMON NORMALS: normocephalic and atraumatic HEAD & SCALP: normocephalic and atraumatic Eye: COMMON NORMALS: Equal, round and reactive pupils present and EOMs intact bilaterally PUPIL: Yes Equal, round and reactive pupils present Neck/C-Spine: COMMON NORMALS: full ROM and supple Chest: COMMONS NORMALS: normal inspection of the chest and normal palpation of entire chest wall Resp: COMMON NORMALS: normal respiratory effort, No retractions, No use of acc essory muscles and clear to auscultation bilaterally AUSCULTATION: clear to auscultation bilaterally Cardio: COMMON NORMALS: regular rate, regular rhythm and No murmurs present (Cardio) RATE: regular rate RHYTHM: regular rhythm GI: COMMON NORMALS: Normal to inspection, nondistended, normoactive bowel sounds present, Soft to palpation, non-tender and no masses PALPATION: Yes Soft to palpation Extremity: COMMON NORMALS: normal to inspection and full ROM Neuro: COMMON NORMALS: patient oriented x3, moves all extremities and no focal motor deficits Psych: COMMON NORMALS: mental status grossly normal, Normal thought process present and cooperative THOUGHT PROCESS: Normal thought process present Skin: COMMON NORMALS: no rashes or lesions noted and no wounds GENERAL SKIN EXAM: no rashes or lesions noted MDM - General Adult Medical Decision Making Patient presents here with anxiety that is chronic in nature she is ran out of her Zyprexa we will refill her blood pressure is a she is not suicidal homicidal she is stable for discharge she is to follow-up with PCP and return if worsening. Discharge Plan Discharge Patient Disposition: Home Clinical Impression: Anxiety Condition: Stable Prescriptions: Continued olanzapine 5 mg tablet,disintegrating 5 mg PO TID PRN (Reason: Agitation/Psychosis) 30 Days Qty: 90 0RF No Action aspirin 325 mg tablet 325 mg PO BEDTIME trazodone 100 mg tablet 100 mg PO BEDTIME hydroxyzine HCl 50 mg tablet 50 mg PO QID PRN (Reason: anxiety) Qty: 120 2RF omeprazole 20 mg Capsule,Delayed Release(Dr/Ec) 20 mg PO QAM Ventolin HFA 90 mcg/actuation Hfa Aerosol Inhaler 2 puff INHALATION QID PRN (Reason: Shortness Of Breath) Vitamin D3 tablet 500 units PO DAILY paliperidone 3 mg Tablet Extended Release 24hr 9 mg PO 2100 30 Days Qty: 90 1RF divalproex 250 mg Tablet Extended Release 24 Hr 750 mg PO DAILY 30 Days Qty: 90 1RF Discharge Orders: Discharge ED (Routine); Ordered 05/17/22 Ordered By: Dequan Acuña Referrals: Emory Fuentes MD [Primary Care Provider] - Discharge Diet: Advance as tolerated Discharge Activity: Resume usual activity Patient Instructions: Anxiety (ED) Coding Level of Care Code ED Salesperson Art Objects for Serina Chandler
[2022-05-17 21:55] VITALS: BP 142/88; PULSE 98; RESP 16; TEMP 36.8; O2SAT 97
[2022-05-17] MEDS: OLANZapine 5 mg ODT PO (21:55)
== END 2022-05-17 21:57 | disposition home or self-care (01) ==
PROVIDERS: Emergency Provider Emergency Medicine; PCP Family Medicine
DX: F41.9 Anxiety disorder, unspecified (principal); Z79.82 Long term (current) use of aspirin
CPT/HCPCS: 99283

== ENCOUNTER → 2022-10-06 13:38 | Outpatient (BNVA) | payer OTHER, SELFPAY | PROVIDERS: PCP Family Medicine; Visit Provider Psychiatry & Neurology Psychiatry | DX: F31.9 Bipolar disorder, unspecified (principal); Z79.899 Other long term (current) drug therapy | CPT/HCPCS: 80061; 83036 ==

== ENCOUNTER → 2023-01-06 12:28 | Outpatient (BNVA) | payer OTHER, SELFPAY ==
[2022-10-25 16:50] VITALS: BP 121/82; BMI 42.0
== END ==
PROVIDERS: PCP Family Medicine; Visit Provider Psychiatry & Neurology Psychiatry
DX: F31.9 Bipolar disorder, unspecified (principal); Z79.899 Other long term (current) drug therapy; F42.4 Excoriation (skin-picking) disorder; F41.1 Generalized anxiety disorder
CPT/HCPCS: 80053; 80164; 84443

== ENCOUNTER 2023-01-21 21:21 | Emergency (ER) | payer MEDICAID, SELFPAY ==
[2022-10-25 16:50] VITALS: BP 121/82; BMI 42.0
[2023-01-21 21:25] VITALS: BP 138/84; PULSE 87; RESP 16; TEMP 36.7; O2SAT 99; BMI 40.4
--- NOTE | 2023-01-22 04:27 | W.ED.EXTPRO ---
HPI - Extremity Problem General: Chief complaint: Extremity Injury, Lower Stated complaint: LOWER LEG NUMBNESS Time Seen by Provider: 01/22/23 00:15 Source: patient Mode of arrival: EMS Limitations: no limitations History of Present Illness: Patient presents emergency department today brought by EMS for various reasons. EMS indicated the patient notified them that she lost sensation in her legs after standing up from a prolonged amount of time on the toilet. However, quickly after arriving at the patient's room for her evaluation, it became multiple complaints ranging anywhere from anxiety to stroke symptoms. Patient reports that she has been diagnosed with episodes which she says her doctors tell her are probably strokes. She also states that she has a bad heart and leaky valves. Patient begins crying and is tearful because she states she is going to . I asked her why she called EMS tonight and she states it was because she was dying. Patient indicated to me that she was living with her grandmother as well as her children but the grandmother was threatening to have the children taken away because the patient was not keeping up with her chores in the house. Patient states that she gets so tired and weak that she is unable to even fold the close or do the dishes. Review of Systems General: Reports: 10 or more systems reviewed and unremarkable except in HPI and below PFSH ED PFSH: Medical History delivery delivered Intermittent palpitations Nonspecific chest pain Psychiatric care Family History Grandmother Diabetes Hypertension Family/Other Cancer breast Social History Smoking and tobacco status: never smoked Second hand smoke exposure: No Smoking risk assessment/counseling performed?: No Alcohol intake: never Desire information about alcohol rehabilitation?: No Counseling given: No Substance/Drug Use: never Desire information about substance/drug rehabilitation?: No Counseling given: No Adopted: No Caregiver/support person: No Lives independently: No Household members: family and children Housing: Manufactured/Mobile home Marital status: Legally Number of children: 3 Highest education level completed: High School Graduate service: No Current occupational status: employed Current occupational exposures/hazards: No Pets and animals: No Leisure activites: games, reading and other Leisure activities details: social media, board games, watch tv Do you think of yourself as: Straight/Heterosexual Current gender identity: Female Martha/Oriental Orthodox: [employer] Special martha needs: No Agree to transfusion: Yes Financial difficulty paying for basics: Not Very Hard Female Reproductive History: Para: 3 Spontaneous abortions: No Physical Exam Const: COMMON NORMALS: no acute distress, patient oriented x3 and alert HENMT: COMMON NORMALS: normocephalic, atraumatic and hearing grossly normal bilaterally HEAD & SCALP: normocephalic and atraumatic Eye: COMMON NORMALS: Equal, round and reactive pupils present, EOMs intact bilaterally and conjunctivae normal CONJUNCTIVA: Yes conjunctivae normal PUPIL: Yes Equal, round and reactive pupils present Neck/C-Spine: COMMON NORMALS: full ROM and no JVD Lymph: LYMPHATIC: no lymphadenopathy noted Resp: COMMON NORMALS: normal respiratory effort, No retractions and No use of accessory muscles Cardio: COMMON NORMALS: no JVD and regular rate RATE: regular rate Extremity: COMMON NORMALS: normal to inspection and no pedal edema Neuro: COMMON NORMALS: patient oriented x3 SENSORIUM/ORIENTATION: Yes alert Psych: COMMON NORMALS: speech normal APPEARANCE: Yes grossly normal ATTITUDE: Yes paranoid ACTIVITY/MOTOR BEHAVIOR: Yes appropriate eye contact SPEECH: Yes normal speech MOOD & AFFECT: Yes anxious THOUGHT PROCESS: disorganized, Tangential thought process present and racing thoughts THOUGHT CONTENT: Yes Obsession(s) present ATTENTION/CONCENTRATION: Yes attention grossly intact INSIGHT: Poor insight present (Psych) Skin: COMMON NORMALS: no rashes or lesions noted and turgor normal GENERAL SKIN EXAM: no rashes or lesions noted and turgor normal Course Vital Signs: Vital signs: Vital Signs Temperature 98.0 F 01/21/23 21:25 Pulse Rate 87 01/21/23 21:25 Respiratory Rate 16 01/21/23 21:25 Blood Pressure 138/84 01/21/23 21:25 Pulse Oximetry 99 01/21/23 21:25 Oxygen Delivery Me thod Room Air 01/21/23 21:25 MDM - Extremity (Nontraumatic) Medical Decision Making Patient presents to the ER today for various issues. I spent approximately 45 minutes [id number] with the patient trying to ascertain the acute concern that brought her into the ER today. I am still unable to determine the patient's chief complaint. Patient indicates to me that she is convinced she is dying. She states she even had her children come to her while she was in the bathroom this evening to talk to them about going to [facility] . She states that her grandmother is going to have the children taken away from her because she is not performing her chores at home. Patient states that she is having episodes that she is convinced are mini strokes. She also states that she is having difficulty sleeping and deals with anxiety. She reports she has a psychiatrist that is available to her 10/04 by Skype or text but, has not tried to reach out to them regarding any of these concerns. Patient's examination today is completely benign. She shows no signs of any neurological deficit, physical deficit, or abnormal vital signs. Patient indicated to me that she was expecting to be admitted. She stated she did not want to go down to the crisis nuno because the chairs are uncomfortable when she watches television and she does not like dealing with the other people's issues who are in the nuno with her. I tried to offer support and recommendation to speak with her psychiatrist. I also encouraged her to stay with a friend or other family member to help her out of her home situation however, patient had multiple reasons why she did not need to or could not have her try other options. I explained to the patient that this time the emergency department is not going to change any of her chronic health issues and we are unable to admit her to the hospital for social issues. Patient had significant malingering-even noted by the nurse as they were attempting to discharge the patient. It is my understanding that the patient remained out in the waiting room after discharge without leaving and even checked back in to the ER several hours later. Differential Diagnosis Unlikely cellulitis (Anxiety, social anxiety, psychiatric issues) Discharge Plan Discharge Patient Disposition: Home Clinical Impression: Situational anxiety, Transient leg weakness Condition: Stable Prescriptions: No Action aspirin 325 mg tablet 325 mg PO BEDTIME hydroxyzine HCl 50 mg tablet 50 mg PO QID PRN (Reason: anxiety) Qty: 120 2RF olanzapine 5 mg tablet,disintegrating 5 mg PO TID PRN (Reason: Agitation/Psychosis) 30 Days Qty: 90 2RF MaxFe (folate) 160 mg-1,700 mcg DFE-60 mcg tablet 1 tab PO DAILY risperidone 1 mg tablet 1 mg PO BID Qty: 60 2RF prazosin 5 mg capsule 5 mg PO .HS Qty: 30 2RF trazodone 100 mg tablet 200 mg PO .HS PRN (Reason: insomnia) Qty: 60 2RF Ventolin HFA 90 mcg/actuation Hfa Aerosol Inhaler 2 puff INHALATION QID PRN (Reason: Shortness Of Breath) omeprazole 20 mg capsule,delayed release(DR/EC) 40 mg PO QAM Discharge Orders: Discharge ED (Routine); Ordered 01/22/23 Ordered By: Priscila Eid Referrals: Emory Fuentes MD [Primary Care Provider] - Discharge Diet: Usual diet Discharge Activity: Increase activity as tolerated Patient Instructions: Generalized Anxiety Disorder (ED) Activity Restrictions/Additional Instructions: Unfortunately, there does not appear to be any signs of an acute stroke at this time. Unfortunately transient or mini strokes are difficult for the emergency room to treat as they are not active strokes and have already passed. It sounds like you are in a stressful environment at home. I do recommend reaching out to your psychologist via chat or text to discuss these concerns you have regarding your living situation and your children. Coding Level of Care Code ED Green House Manager for Serina Chandler
== END 2023-01-22 02:20 | disposition home or self-care (01) ==
PROVIDERS: Emergency Provider Physician Assistant; PCP Family Medicine
DX: R53.1 Weakness (principal); F43.22 Adjustment disorder with anxiety; Z79.82 Long term (current) use of aspirin
CPT/HCPCS: 99282

== ENCOUNTER 2023-01-22 04:17 | Emergency (ER) | payer MEDICAID, SELFPAY ==
[2022-10-25 16:50] VITALS: BP 121/82; BMI 42.0
[2023-01-22 04:28] VITALS: BP 117/79; PULSE 86; RESP 16; TEMP 36.5; O2SAT 97; BMI 43.4
[2023-01-22 04:38] VITALS: BP 117/79; PULSE 90; RESP 16; O2SAT 98
[2023-01-22] MEDS: OLANZapine 10 mg ODT 20 MG PO (04:52)
--- NOTE | 2023-01-22 05:36 | W.ED.NAVMDI ---
HPI - Nausea/Vomiting/Diarrhea General: Chief complaint: Nausea/Vomiting/Diarrhea Stated complaint: weakness, n/v Time Seen by Provider: 01/22/23 04:48 Source: patient History of Present Illness: 32-year-old female well-known to the emergency department. She presents with nausea and vomiting x1. She had been seen earlier this morning, and discharged to the waiting room and was waiting on a ride. She notes that she began to feel some pressure in her bottom, and vomited once. She admits to some diarrhea on and off for the past week. She says that her belly feels nervy right now. It is not overly painful. She denies fever, but says she has not checked her temperature. She also relates some swelling to her right ankle that she has just noticed while I was speaking with her. She denies any injury to the ankle at all. The swelling is not painful. MD elicited complaint: nausea and vomiting Associated nausea: Yes Associated abdominal pain: No Location of pain: None Relieving factors: none Associated symtoms: Reports headache(s) and nausea; Denies chest pain, cough or dysuria Review of Systems Card: Denies: chest pain Resp: Denies: dyspnea, productive cough or non-productive cough GI: Reports: nausea and vomiting; Denies: abdominal pain : Denies: dysuria Skin/Breast: Denies: rash Neuro: Reports: headache(s) PFSH ED PFSH: Medical History delivery delivered Intermittent palpitations Nonspecific chest pain Psychiatric care Family History Grandmother Diabetes Hypertension Family/Other Cancer breast Social History Smoking and tobacco status: never smoked Second hand smoke exposure: No Smoking risk assessment/counseling performed?: No Alcohol intake: never Desire information about alcohol rehabilitation?: No Counseling given: No Substance/Drug Use: never Desire information about substance/drug rehabilitation?: No Counseling given: No Adopted: No Caregiver/support person: No Lives independently: No Household members: family and children Housing: Manufactured/Mobile home Marital status: Legally Number of children: 3 Highest education level completed: High School Graduate service: No Current occupational status: employed Current occupational exposures/hazards: No Pets and animals: No Leisure activites: games, reading and other Leisure activities details: social media, board games, watch tv Do you think of yourself as: Straight/Heterosexual Current gender identity: Female Martha/Advent: Denominational Special martha needs: No Agree to transfusion: Yes Financial difficulty paying for basics: Not Very Hard Female Reproductive History: Para: 3 Spontaneous abortions: No Physical Exam Const: COMMON NORMALS: no acute distress GENERAL APPEARANCE: cooperative and anxious; not ill appearing and not frail appearing HENMT: COMMON NORMALS: normocephalic, atraumatic and Normal external nose present HEAD & SCALP: normocephalic and atraumatic FACE & SINUS: normal facial exam and face symmetric NOSE: Normal external nose present Eye: COMMON NORMALS: Equal, round and reactive pupils present and EOMs intact bilaterally PUPIL: Yes Equal, round and reactive pupils present Neck/C-Spine: GENERAL: Yes trachea midline Chest: CHEST: Yes Symmetrical chest wall rise Resp: COMMON NORMALS: normal respiratory effort, No retractions, No use of accessory muscles and clear to auscultation bilaterally AUSCULTATION: clear to auscultation bilaterally Cardio: COMMON NORMALS: regular rate and regular rhythm RATE: regular rate RHYTHM: regular rhythm GI: COMMON NORMALS: Normal to inspection, nondistended, normoactive bowel sounds present Extremity: COMMON NORMALS: no pedal edema Neuro: RAVI COMA SCALE: document GCS findings Ravi coma scale eye opening: Spontaneous [place] coma scale verbal response: Orientated [place] coma scale motor response: Obey commands Ravi coma scale total score: 15 SENSORY EXAM: Yes extremities (intact) Psych: COMMON NORMALS: speech normal SPEECH: Yes normal speech Skin: COMMON NORMALS: no rashes or lesions noted GENERAL SKIN EXAM: no rashes or lesions noted Course Vital Signs: Vital signs: Vital Signs Temperature 97.7 F 01/22/23 06:37 Pulse Rate 90 01/22/23 06:37 Respiratory Rate 16 01/22/23 06:37 Blood Pressure 117/79 01/22/23 06:37 Pulse Oximetry 98 01/22/23 06:37 MDM - Nausea/Vomiting/Diarrhea Medical Decision Making As above the patient is well-known to the ER. She vomited once evidently in the waiting room bathroom. This was unwitnessed. Her belly is nontender. Her exam is benign. Her vitals are normal. She is a bit anxious on exam, which is not uncommon for her. She was given 20 mg of olanzapine for this with some improvement both in anxiety and nausea. Discharge Plan Discharge Patient Disposition: Home Clinical Impression: Vomiting Condition: Stable Prescriptions: New ondansetron 4 mg film 4 mg PO DAILY PRN (Reason: nausea and vomiting) Qty: 10 0RF No Action aspirin 325 mg tablet 325 mg PO BEDTIME hydroxyzine HCl 50 mg tablet 50 mg PO QID PRN (Reason: anxiety) Qty: 120 2RF olanzapine 5 mg tablet,disintegrating 5 mg PO TID PRN (Reason: Agitation/Psychosis) 30 Days Qty: 90 2RF MaxFe (folate) 160 mg-1,700 mcg DFE-60 mcg tablet 1 tab PO DAILY risperidone 1 mg tablet 1 mg PO BID Qty: 60 2RF prazosin 5 mg capsule 5 mg PO .HS Qty: 30 2RF trazodone 100 mg tablet 200 mg PO .HS PRN (Reason: insomnia) Qty: 60 2RF Ventolin HFA 90 mcg/actuation Hfa Aerosol Inhaler 2 puff INHALATION QID PRN (Reason: Shortness Of Breath) omeprazole 20 mg capsule,delayed release(DR/EC) 40 mg PO QAM Discharge Orders: Discharge ED (Routine); Ordered 01/22/23 Ordered By: Ángel Allen Referrals: Emory Fuentes MD [Primary Care Provider] - 1-3 days Patient Instructions: Vomiting - Adult Activity Restrictions/Additional Instructions: Take prescribed medication every 4 hours while awake for the next 24 hours, then as needed. Coding Level of Care Code ED Application Support Technician for Serina Chandler
[2023-01-22 06:37] VITALS: BP 117/79; PULSE 90; RESP 16; TEMP 36.5; O2SAT 98
== END 2023-01-22 06:37 | disposition home or self-care (01) ==
PROVIDERS: Emergency Provider Emergency Medicine; PCP Family Medicine
DX: R11.11 Vomiting without nausea (principal); Z79.82 Long term (current) use of aspirin
CPT/HCPCS: 99283

== ENCOUNTER 2023-01-31 01:03 | Emergency (ER) | payer MEDICAID, SELFPAY ==
[2022-10-25 16:50] VITALS: BP 121/82; BMI 42.0
[2023-01-31 01:11] VITALS: BMI 41.3
[2023-01-31 01:14] VITALS: BP 152/87; PULSE 99; RESP 16; TEMP 37.1; O2SAT 98
--- NOTE | 2023-01-31 01:18 | ED_ITS ---
HPI - SOB/Dyspnea General: Chief Complaint: Shortness of Breath/Dyspnea Stated Complaint: SOB/HEART BURN Time Seen by Provider: 01/31/23 01:07 History of Present Illness: HPI Narrative: Patient comes in today with complaints of burning in her chest. Patient appears nontoxic. Patient appears in no acute distress. Patient has a history of anxiety and asthma. Associated symptoms: Reports chest pain; Deny fever(s) Review of Systems General: Reports: 10 or more systems reviewed and unremarkable except in HPI and below Const: Denies: fever(s) Card: Reports: chest pain Resp: Denies: dyspnea GI: Reports: heartburn : Denies: difficulty voiding Musc: Denies: neck pain or back pain Skin/Breast: Denies: rash PFSH ED PFSH: Medical History delivery delivered Intermittent palpitations Nonspecific chest pain Psychiatric care Family History Grandmother Diabetes Hypertension Family/Other Cancer breast Social History Smoking and tobacco status: never smoked Second hand smoke exposure: No Smoking risk assessment/counseling performed?: No Alcohol intake: never Desire information about alcohol rehabilitation?: No Counseling given: No Substance/Drug Use: never Desire information about substance/drug rehabilitation?: No Counseling given: No Adopted: No Caregiver/support person: No Lives independently: No Household members: family and children Housing: Manufactured/Mobile home Marital status: Legally Number of children: 3 Highest education level completed: High School Graduate service: No Current occupational status: employed Current occupational exposures/hazards: No Pets and animals: No Leisure activites: games, reading and other Leisure activities details: social media, board games, watch tv Do you think of yourself as: Straight/Heterosexual Current gender identity: Female Martha/Sikhism: Pentecostalism Special martha needs: No Agree to transfusion: Yes Financial difficulty paying for basics: Not Very Hard Female Reproductive History: Para: 3 Spontaneous abortions: No Physical Exam Const: COMMON NORMALS: alert HENMT: COMMON NORMALS: normocephalic HEAD & SCALP: normocephalic Neck/C-Spine: COMMON NORMALS: full ROM Resp: COMMON NORMALS: normal respiratory effort and clear to auscultation bilaterally AUSCULTATION: clear to auscultation bilaterally Cardio: COMMON NORMALS: regular rate and regular rhythm RATE: regular rate RHYTHM: regular rhythm GI: COMMON NORMALS: non-tender : COMMON NORMALS: Yes no CVA tenderness BLADDER/KIDNEY EXAM: Yes no CVA tenderness Back/Pelvis: COMMON NORMALS: no CVA tenderness Extremity: COMMON NORMALS: full ROM Neuro: SENSORIUM/ORIENTATION: Yes alert Skin: COMMON NORMALS: turgor normal GENERAL SKIN EXAM: turgor normal Course Vital Signs: Vital signs: Vital Signs Temperature 98.7 F 01/31/23 01:14 Pulse Rate 99 01/31/23 01:14 Respiratory Rate 16 01/31/23 01:14 Blood Pressure 152/87 01/31/23 01:14 Pulse Oximetry 98 01/31/23 01:14 MDM - SOB/Dyspnea Medical Decision Making 32-year-old female comes in today for complaints of burning and chest discomfort along with complaints of frequent urination. On exam respirations are even lungs are clear to auscultation. Skin is warm and dry. Vital signs are normal. Differential diagnosis includes GERD, anxiety, not likely ACS. Patient has improvement of pain after GI cocktail. Urinalysis was clean. Recommend follow- up with primary care for further evaluation and treatment. Return to ED for new concerns. Lab Data Labs/Radiology: Laboratory Results Urine Color Yellow (Yellow) 01/31/23 01:50 Urine Appearance Clear (CLEAR) 01/31/23 01:50 Urine pH 7 (5-7) 01/31/23 01:50 Ur Specific [place] 1.010 (1.005-1.030) 01/31/23 01:50 Urine Protein Neg (Negative) 01/31/23 01:50 Urine Glucose (UA) Norm (Normal) 01/31/23 01:50 Urine Ketones Negative (Negative) 01/31/23 01:50 Urine Blood Neg (Negative) 01/31/23 01:50 Urine Nitrate Negative (Negative) 01/31/23 01:50 Urine Bilirubin Neg (Negative) 01/31/23 01:50 Urine Urobilinogen Neg mg/dL (Negative) 01/31/23 01:50 Ur Leukocyte Esterase Negative (Negative) 01/31/23 01:50 Discharge Plan Discharge Patient Disposition: Home Clinical Impression: Gastroesophageal reflux disease Qualifiers: Esophagitis presence: esophagitis presence not specified Qualified Code(s): K21.9 - Gastro-esophageal reflux disease without esophagitis Condition: Stable Prescriptions: New famotidine 20 mg tablet 20 mg PO BID Qty: 20 0RF No Action aspirin 325 mg tablet 325 mg PO BEDTIME hydroxyzine HCl 50 mg tablet 50 mg PO QID PRN (Reason: anxiety) Qty: 120 2RF olanzapine 5 mg tablet,disintegrating 5 mg PO TID PRN (Reason: Agitation/Psychosis) 30 Days Qty: 90 2RF MaxFe (folate) 160 mg-1,700 mcg DFE-60 mcg tablet 1 tab PO DAILY risperidone 1 mg tablet 1 mg PO BID Qty: 60 2RF prazosin 5 mg capsule 5 mg PO .HS Qty: 30 2RF trazodone 100 mg tablet 200 mg PO .HS PRN (Reason: insomnia) Qty: 60 2RF Ventolin HFA 90 mcg/actuation Hfa Aerosol Inhaler 2 puff INHALATION QID PRN (Reason: Shortness Of Breath) omeprazole 20 mg capsule,delayed release(DR/EC) 40 mg PO QAM ondansetron 4 mg film 4 mg PO DAILY PRN (Reason: nausea and vomiting) Qty: 10 0RF Discharge Orders: Discharge ED (Routine); Ordered 01/31/23 Ordered By: Jerman Allred Referrals: Emory Fuentes MD [Primary Care Provider] - Discharge Diet: Usual diet Discharge Activity: Increase activity as tolerated Patient Instructions: GERD (Gastroesophageal Reflux Disease) (ED) Activity Restrictions/Additional Instructions: Healthy diet and activity. Drink plenty of water and fluids with medication. Follow-up with primary care for further instruction. Return to ED for new concerns. Coding Level of Care Code ED Medical Office Rep for Serina Chandler
[2023-01-31] MEDS: lidocaine 2% viscous 15 ML, aluminum-mag hydrox-simethicon 30 ML, sucralfate oral liq 1 GM PO (01:47)
[2023-01-31 02:04] LABS: Add Urine Microscopic? NO; Charge for UA Resulting for Rev
[2023-01-31 02:35] LABS: Bilirubin Urine Neg (Negative); Blood Urine Neg (Negative); Glucose Urine UA Norm (Normal); Ketones Urine Negative (Negative); Leukocyte Esterase Urine Negative (Negative); Nitrate Urine Negative (Negative); Protein Urine Neg (Negative); Urine Appearance Clear (CLEAR); Urine Color Yellow (Yellow); Urobilinogen Urine Neg (Negative); pH Urine 7 (5-7)
[2023-01-31 02:44] VITALS: BP 115/83; PULSE 93; RESP 16; O2SAT 97
== END 2023-01-31 02:45 | disposition home or self-care (01) ==
PROVIDERS: Emergency Provider Nurse Practitioner Family; PCP Family Medicine
DX: K21.9 Gastro-esophageal reflux disease without esophagitis (principal); Z79.82 Long term (current) use of aspirin
CPT/HCPCS: 81003; 99283

== ENCOUNTER 2023-04-03 12:00 | Outpatient (CLI) | payer MEDICAID, SELFPAY ==
[2022-10-25 16:50] VITALS: BP 121/82; BMI 42.0
== END 2023-04-03 12:01 | disposition home or self-care (01) ==
LOC: SLEEP 04-04 11:16
PROVIDERS: PCP Family Medicine; Visit Provider Family Medicine
DX: G47.10 Hypersomnia, unspecified (principal); R06.83 Snoring; R53.83 Other fatigue
CPT/HCPCS: G0399

== ENCOUNTER → 2023-10-12 12:09 | Outpatient (BNVA) | payer OTHER, SELFPAY ==
[2022-10-25 16:50] VITALS: BP 121/82; BMI 42.0
== END ==
PROVIDERS: PCP Family Medicine; Visit Provider Psychiatry & Neurology Psychiatry
DX: F31.9 Bipolar disorder, unspecified (principal); Z79.899 Other long term (current) drug therapy
CPT/HCPCS: 80061; 83036

== ENCOUNTER → 2023-10-30 12:36 | Outpatient (BNVA) | payer MEDICAID, SELFPAY ==
[2023-10-18 16:27] VITALS: BP 124/77; BMI 44.3
== END ==
PROVIDERS: PCP Family Medicine; Visit Provider Nurse Practitioner
DX: R10.9 Unspecified abdominal pain (principal)
CPT/HCPCS: 81000

== ENCOUNTER 2023-12-15 17:00 | Emergency (ER) | payer MEDICAID, SELFPAY ==
[2023-10-18 16:27] VITALS: BP 124/77; BMI 44.3
[2023-12-15 17:03] VITALS: BP 137/104; PULSE 110; RESP 15; TEMP 37.1; O2SAT 98
--- NOTE | 2023-12-15 17:09 | ED_ITS ---
Documented by User: Julia Beth MD 12/15/23 17:45 HPI - Weakness 2 General: Chief complaint: Weakness Stated complaint: General Weakness Time Seen by Provider: 12/15/23 17:05 History of Present Illness: 33-year-old female who [facility] with generalized weakness and near syncope. She says she had gone to her doctor for blood draw and felt like she was going to pass out. She had started feeling better and went to go fill some prescriptions at [facility]. While she was there apparently someone told her if she felt that way she should take an ambulance and go to the emergency room so she did. Vitals are normal on presentation. She has no focal complaints. She says she just does not feel very well. No chest pain. No fever. Altered mental status. No focal motor deficits. No nausea or vomiting. Review of Systems 2 Narrative: Constitutional symptoms: Negative except as documented in HPI. Skin symptoms: Negative except as documented in HPI. Eye symptoms: Negative except as documented in HPI. ENMT symptoms: Negative except as documented in HPI. Respiratory symptoms: Negative except as documented in HPI. Cardiovascular symptoms: Negative except as documented in HPI. Gastrointestinal symptoms: Negative except as documented in HPI. Genitourinary symptoms: Negative except as documented in HPI. Musculoskeletal symptoms: Negative except as documented in HPI. Neurologic symptoms: Negative except as documented in HPI. Psychiatric symptoms: Negative except as documented in HPI. Endocrine symptoms: Negative except as documented in HPI. PFSH ED 2 PFSH: Medical History Psychiatric care Nonspecific chest pain Intermittent palpitations delivery delivered Family History Grandmother Diabetes Hypertension Family/Other Cancer breast Social History Smoking and tobacco/nicotine status: never used tobacco/nicotine Second hand smoke exposure: No Alcohol intake: never Substance/Drug Use: never Adopted: No Caregiver/support person: No Lives independently: No Household members: family and children Housing: Manufactured/Mobile home Marital status: Legally Number of children: 3 Highest education level completed: High School Graduate service: No Current occupational status: disabled Current occupational exposures/hazards: No Pets and animals: No Leisure activites: music, games, reading and other Leisure activities details: social media, board games, watch tv, read the Bible Do you think of yourself as: Straight/Heterosexual Current gender identity: Female Martha/Scientology: Latter-Day Special martha needs: No Agree to transfusion: Yes Female Reproductive History: Para: 3 Spontaneous abortions: No Physical Exam 2 Narrative: EXAM NARRATIVE: General: Alert, no acute distress. Skin: Warm, dry. Head: Normocephalic, atraumatic. Neck: Supple, trachea midline. Eye: Extraocular movements are intact. Ears, nose, mouth and throat: mucosa moist. Cardiovascular: Regular, Normal peripheral perfusion. Respiratory: Lungs are clear to auscultation, respirations are non-labored, breath sounds are equal, Symmetrical chest wall expansion. Gastrointestinal: Soft, Nontender, Non distended, Normal bowel sounds. Musculoskeletal: Normal ROM, no deformity. Neurological: Alert and oriented, No focal neurological deficit observed. Psychiatric: Cooperative, appropriate mood & affect. Course 2 Vital Signs: Vital signs: Vital Signs Temperature 98.7 F 12/15/23 17:03 Pulse Rate 101 H 12/15/23 19:58 Respiratory Rate 15 12/15/23 17:03 Blood Pressure 102/79 12/15/23 19:58 Pulse Oximetry 96 12/15/23 19:58 Oxygen Delivery Me thod Room Air 12/15/23 17:03 MDM - Weakness Medical Decision Making Medical decision making: Differential diagnosis for patient presenting with generalized weakness including but not limited to and based on the above HPI, review of systems and physical exam: Basic lab work is being done. CBC, BMP and EKG and a urinalysis Workup: labwork and lab/exam driven imaging ordered to evaluate, rule in and rule out above pathologies. EK p.m. rate 97 normal sinus rhythm, No ST-T changes, no ectopy, normal VT & QRS intervals, This was reviewed and interpreted by myself the ER physician at 1722 PM. Patient care transitioned to Dr. Teodoro Scott at shift change. Lab work and urinalysis are pending collection. Lab Data 12/15/23 17:43 12/15/23 17:43 Laboratory Results WBC 9.27 10^3/uL (3.29-11.43) 12/15/23 17:43 RBC 4.49 10^6/uL (3.85-5.65) 12/15/23 17:43 Hgb 13.20 g/dL (11.27-16.99) 12/15/23 17:43 Hct 39.6 % (36-47) 12/15/23 17:43 MCV 88.2 fl (85-98) 12/15/23 17:43 MCH 29.4 pg (27-33) 12/15/23 17:43 MCHC 33.3 g/dL (30-55) 12/15/23 17:43 RDW 12.0 % (12.1-15.1) L 12/15/23 17:43 Plt Count 302 10^3/cmm (157-399) 12/15/23 17:43 MPV 8.5 fL (7.4-10.4) 12/15/23 17:43 Neut % (Auto) 63.2 % 12/15/23 17:43 Lymph % (Auto) 28.9 % 12/15/23 17:43 [place] % (Auto) 6.3 % 12/15/23 17:43 Eos % (Auto) 0.9 % 12/15/23 17:43 Baso % (Auto) 0.5 % 12/15/23 17:43 Neut # (Auto) 5.86 10^3/uL (1.8-7.7) 12/15/23 17:43 Lymph # (Auto) 2.7 10^3/uL (0.8-4.8) 12/15/23 17:43 [place] # (Auto) 0.6 10^3/uL (0.2-0.9) 12/15/23 17:43 Eos # (Auto) 0.1 10^3/uL (0.0-0.8) 12/15/23 17:43 Baso # (Auto) 0.1 10^3/uL (0.0-0.1) 12/15/23 17:43 Nucleated RBC % (auto) 0 % 12/15/23 17:43 Nucleated RBCs # 0.0 /100WBC 12/15/23 17:43 Sodium 142 mmol/L (136-145) 12/15/23 17:43 Potassium 3.8 mmol/L (3.5-5.1) 12/15/23 17:43 Chloride 104 mmol/L (98-107) 12/15/23 17:43 Carbon Dioxide 24 mmol/L (22-29) 12/15/23 17:43 Anion Gap 17.8 (5-19) 12/15/23 17:43 BUN 14 mg/dL (6-20) 12/15/23 17:43 Creatinine 0.6 mg/dL (0.5-0.9) 12/15/23 17:43 GFR Calculation 115.9 mL/min (90-130) 12/15/23 17:43 Glucose 97 mg/dL (65-115) 12/15/23 17:43 Calculated Osmolality 294 mOsm/kg (285-295) 12/15/23 17:43 Calcium 9.6 mg/dL (8.5-10.5) 12/15/23 17:43 Total Bilirubin 0.4 mg/dL (0.15-1.2) 12/15/23 17:43 AST 24 U/L (0-32) 12/15/23 17:43 ALT 46 U/L (0-33) H 12/15/23 17:43 Alkaline Phosphatase 123 U/L (35-105) H 12/15/23 17:43 Total Protein 7.8 g/dL (6.6-8.7) 12/15/23 17:43 Albumin 4.7 g/dL (3.5-5.2) 12/15/23 17:43 Globulin 3.1 g/dL (1.3-4.6) 12/15/23 17:43 HCG, Qual Negative (Negative) 12/15/23 18:09 Urine Color Light yellow (Yellow) 12/15/23 18:17 Urine Appearance Clear (CLEAR) 12/15/23 18:17 Urine pH 6 (5-7) 12/15/23 18:17 Ur Specific [place] 1.005 (1.005-1.030) 12/15/23 18:17 Urine Protein Neg (Negative) 12/15/23 18:17 Urine Glucose (UA) Norm (Normal) 12/15/23 18:17 Urine Ketones Negative (Negative) 12/15/23 18:17 Urine Blood 3+ (Negative) H 12/15/23 18:17 Urine Nitrate Negative (Negative) 12/15/23 18:17 Urine Bilirubin Neg (Negative) 12/15/23 18:17 Urine Urobilinogen Neg mg/dL (Negative) 12/15/23 18:17 Ur Leukocyte Esterase Trace (Negative) H 12/15/23 18:17 Urine RBC 5-10 /hpf (0-2) H 12/15/23 18:17 Urine WBC 5-10 /hpf (0-5) H 12/15/23 18:17 Ur Squamous Epith Cells 5-10 /hpf (0-5) H 12/15/23 18:17 Amorphous Sediment Not Reportable 12/15/23 18:17 Urine Bacteria 1+ /hpf (NONE) H 12/15/23 18:17 Urine Mucus Trace /hpf 12/15/23 18:17 Discharge Plan Discharge Patient Disposition: Home Clinical Impression: UTI (urinary tract infection), Anxiety Condition: Stable Prescriptions: No Action aspirin 325 mg tablet 325 mg PO BEDTIME omeprazole 40 mg capsule,delayed release(DR/EC) 40 mg PO BID 7 Days Qty: 14 0RF prazosin 5 mg capsule 5 mg PO .HS Qty: 30 2RF risperidone 1 mg tablet 1 mg PO BID Qty: 60 2RF olanzapine 5 mg tablet,disintegrating 5 mg PO TID PRN (Reason: Agitation/Psychosis) 30 Days Qty: 90 2RF MaxFe (folate) 160 mg-1,700 mcg DFE-60 mcg tablet 1 tab PO DAILY hydroxyzine HCl 50 mg tablet 50 mg PO QID PRN (Reason: anxiety) Qty: 120 2RF trazodone 100 mg tablet 200 mg PO QPM PRN (Reason: insomnia) Discharge Orders: Discharge ED (Routine); Ordered 12/15/23 Ordered By: Teodoro Scott Referrals: Emory Fuentes MD [Primary Care Provider] - Discharge Diet: Usual diet Discharge Activity: Resume usual activity Patient Instructions: Opioid Safety, Pain Management Activity Restrictions/Additional Instructions: Activity Restrictions/Additional Instructions: Thank you for choosing [facility] for your healthcare needs today. Please realize that you were seen in the Emergency Department and that we are providing you with an emergency medical screening exam and this may not be a complete and all inclusive of all the testing and or medical work-up that you may need to determine your ailment or severity of your illness. It is very important that you follow-up as instructed with your Primary care provider or Specialist for additional evaluation and to discuss your medical treatment plan. Coding Level of Care Code ED Birth Certificate Clerk for Chg Fwd Documented by User: Teodoro Scott MD 01/04/24 03:12 HPI - Weakness 2 General: Chief complaint: Weakness Stated complaint: General Weakness Time Seen by Provider: 12/15/23 17:05 History of Present Illness: Associated symptoms: Reports nausea Review of Systems 2 General: Reports: 10 or more systems reviewed and unremarkable except in HPI and below GI: Reports: nausea Psych: Reports: anxiety PFSH ED 2 PFSH: Medical History Psychiatric care Nonspecific chest pain Intermittent palpitations delivery delivered Family History Grandmother Diabetes Hypertension Family/Other Cancer breast Social History Smoking and tobacco/nicotine status: never used tobacco/nicotine Second hand smoke exposure: No Alcohol intake: never Substance/Drug Use: never Adopted: No Caregiver/support person: No Lives independently: No Household members: family and children Housing: Manufactured/Mobile home Marital status: Legally Number of children: 3 Highest education level completed: High School Graduate service: No Current occupational status: disabled Current occupational exposures/hazards: No Pets and animals: No Leisure activites: music, games, reading and other Leisure activities details: social media, board games, watch tv, read the Bible Do you think of yourself as: Straight/Heterosexual Current gender identity: Female Martha/Scientology: Latter-Day Special martha needs: No Agree to transfusion: Yes Course 2 Vital Signs: Vital signs: Vital Signs Temperature 98.7 F 12/15/23 17:03 Pulse Rate 101 H 12/15/23 19:58 Respiratory Rate 15 12/15/23 17:03 Blood Pressure 102/79 12/15/23 19:58 Pulse Oximetry 96 12/15/23 19:58 Oxygen Delivery Me thod Room Air 12/15/23 17:03 MDM - Weakness Medical Decision Making Medical decision making: Differential diagnosis for patient presenting with generalized weakness including but not limited to and based on the above HPI, review of systems and physical exam: Basic lab work is being done. CBC, BMP and EKG and a urinalysis Workup: labwork and lab/exam driven imaging ordered to evaluate, rule in and rule out above pathologies. EK p.m. rate 97 normal sinus rhythm, No ST-T changes, no ectopy, normal VT & QRS intervals, This was reviewed and interpreted by myself the ER physician at 1722 PM. Patient care transitioned to Dr. Teodoro Scott at shift change. Lab work and urinalysis are pending collection. I have discussed the patient's case with the off going physician <Dr. Mitchell> and I have assumed care of the patient. We have discussed the current lab/radiographic results that have been resulted and the pending tests. Medical Records I reviewed the patient's medical records. Lab Data I reviewed the patient's lab results. 12/15/23 17:43 12/15/23 17:43 Laboratory Results WBC 9.27 10^3/uL (3.29-11.43) 12/15/23 17:43 RBC 4.49 10^6/uL (3.85-5.65) 12/15/23 17:43 Hgb 13.20 g/dL (11.27-16.99) 12/15/23 17:43 Hct 39.6 % (36-47) 12/15/23 17:43 MCV 88.2 fl (85-98) 12/15/23 17:43 MCH 29.4 pg (27-33) 12/15/23 17:43 MCHC 33.3 g/dL (30-55) 12/15/23 17:43 RDW 12.0 % (12.1-15.1) L 12/15/23 17:43 Plt Count 302 10^3/cmm (157-399) 12/15/23 17:43 MPV 8.5 fL (7.4-10.4) 12/15/23 17:43 Neut % (Auto) 63.2 % 12/15/23 17:43 Lymph % (Auto) 28.9 % 12/15/23 17:43 [place] % (Auto) 6.3 % 12/15/23 17:43 Eos % (Auto) 0.9 % 12/15/23 17:43 Baso % (Auto) 0.5 % 12/15/23 17:43 Neut # (Auto) 5.86 10^3/uL (1.8-7.7) 12/15/23 17:43 Lymph # (Auto) 2.7 10^3/uL (0.8-4.8) 12/15/23 17:43 [place] # (Auto) 0.6 10^3/uL (0.2-0.9) 12/15/23 17:43 Eos # (Auto) 0.1 10^3/uL (0.0-0.8) 12/15/23 17:43 Baso # (Auto) 0.1 10^3/uL (0.0-0.1) 12/15/23 17:43 Nucleated RBC % (auto) 0 % 12/15/23 17:43 Nucleated RBCs # 0.0 /100WBC 12/15/23 17:43 Sodium 142 mmol/L (136-145) 12/15/23 17:43 Potassium 3.8 mmol/L (3.5-5.1) 12/15/23 17:43 Chloride 104 mmol/L (98-107) 12/15/23 17:43 Carbon Dioxide 24 mmol/L (22-29) 12/15/23 17:43 Anion Gap 17.8 (5-19) 12/15/23 17:43 BUN 14 mg/dL (6-20) 12/15/23 17:43 Creatinine 0.6 mg/dL (0.5-0.9) 12/15/23 17:43 GFR Calculation 115.9 mL/min (90-130) 12/15/23 17:43 Glucose 97 mg/dL (65-115) 12/15/23 17:43 Calculated Osmolality 294 mOsm/kg (285-295) 12/15/23 17:43 Calcium 9.6 mg/dL (8.5-10.5) 12/15/23 17:43 Total Bilirubin 0.4 mg/dL (0.15-1.2) 12/15/23 17:43 AST 24 U/L (0-32) 12/15/23 17:43 ALT 46 U/L (0-33) H 12/15/23 17:43 Alkaline Phosphatase 123 U/L (35-105) H 12/15/23 17:43 Total Protein 7.8 g/dL (6.6-8.7) 12/15/23 17:43 Albumin 4.7 g/dL (3.5-5.2) 12/15/23 17:43 Globulin 3.1 g/dL (1.3-4.6) 12/15/23 17:43 HCG, Qual Negative (Negative) 12/15/23 18:09 Urine Color Light yellow (Yellow) 12/15/23 18:17 Urine Appearance Clear (CLEAR) 12/15/23 18:17 Urine pH 6 (5-7) 12/15/23 18:17 Ur Specific [place] 1.005 (1.005-1.030) 12/15/23 18:17 Urine Protein Neg (Negative) 12/15/23 18:17 Urine Glucose (UA) Norm (Normal) 12/15/23 18:17 Urine Ketones Negative (Negative) 12/15/23 18:17 Urine Blood 3+ (Negative) H 12/15/23 18:17 Urine Nitrate Negative (Negative) 12/15/23 18:17 Urine Bilirubin Neg (Negative) 12/15/23 18:17 Urine Urobilinogen Neg mg/dL (Negative) 12/15/23 18:17 Ur Leukocyte Esterase Trace (Negative) H 12/15/23 18:17 Urine RBC 5-10 /hpf (0-2) H 12/15/23 18:17 Urine WBC 5-10 /hpf (0-5) H 12/15/23 18:17 Ur Squamous Epith Cells 5-10 /hpf (0-5) H 12/15/23 18:17 Amorphous Sediment Not Reportable 12/15/23 18:17 Urine Bacteria 1+ /hpf (NONE) H 12/15/23 18:17 Urine Mucus Trace /hpf 12/15/23 18:17 No radiology studies performed this visit Discharge Plan Discharge Patient Disposition: Home Clinical Impression: UTI (urinary tract infection), Anxiety Condition: Stable Prescriptions: No Action aspirin 325 mg tablet 325 mg PO BEDTIME omeprazole 40 mg capsule,delayed release(DR/EC) 40 mg PO BID 7 Days Qty: 14 0RF prazosin 5 mg capsule 5 mg PO .HS Qty: 30 2RF risperidone 1 mg tablet 1 mg PO BID Qty: 60 2RF olanzapine 5 mg tablet,disintegrating 5 mg PO TID PRN (Reason: Agitation/Psychosis) 30 Days Qty: 90 2RF MaxFe (folate) 160 mg-1,700 mcg DFE-60 mcg tablet 1 tab PO DAILY hydroxyzine HCl 50 mg tablet 50 mg PO QID PRN (Reason: anxiety) Qty: 120 2RF trazodone 100 mg tablet 200 mg PO QPM PRN (Reason: insomnia) Discharge Orders: Discharge ED (Routine); Ordered 12/15/23 Ordered By: Teodoro Scott Referrals: Emory Fuentes MD [Primary Care Provider] - Discharge Diet: Usual diet Discharge Activity: Resume usual activity Patient Instructions: Opioid Safety, Pain Management Activity Restrictions/Additional Instructions: Activity Restrictions/Additional Instructions: Thank you for choosing [facility] for your healthcare needs today. Please realize that you were seen in the Emergency Department and that we are providing you with an emergency medical screening exam and this may not be a complete and all inclusive of all the testing and or medical work-up that you may need to determine your ailment or severity of your illness. It is very important that you follow-up as instructed with your Primary care provider or Specialist for additional evaluation and to discuss your medical treatment plan. Coding Level of Care Code ED Birth Certificate Clerk for Serina Chandler
--- NOTE | 2023-12-15 17:17 | ECG_ITS ---
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 Measurements Intervals [place] Rate: 97 P: 29 IA: 148 QRS: 3 QRSD: 91 T: 29 QT: 343 QTc: 436 Interpretive Statements SINUS RHYTHM LOW QRS VOLTAGE IN PRECORDIAL LEADS [QRS DEFLECTION < 1.0 mV IN CHEST LEADS] POSSIBLE ANTERIOR MYOCARDIAL INFARCTION , PROBABLY OLD [30 ms Q WAVE IN V3/V4, OR R < 0.2 mV IN V4] Compared to ECG 05/02/2022 04:53:28 No significant changes Electronically Signed On 12-15-2023 22:52:05 CDT by Fab Stephens M.D. [id number]
[2023-12-15 17:52] LABS: Basophils # 0.1 10^3/uL (0.0-0.1); Basophils % 0.5 %; Eosinophils # 0.1 10^3/uL (0.0-0.8); Eosinophils % 0.9 %; Hematocrit 39.6 % (36-47); Lymphocytes # 2.7 10^3/uL (0.8-4.8); Lymphocytes % 28.9 %; Mean Corpuscular HGB Conc 33.3 g/dL (30-55); Mean Corpuscular Hemoglobin 29.4 pg (27-33); Mean Corpuscular Volume 88.2 fl (85-98); Mean Platelet Volume 8.5 fL (7.4-10.4); Monocytes # 0.6 10^3/uL (0.2-0.9); Monocytes % 6.3 %; Neutrophils # 5.86 10^3/uL (1.8-7.7); Neutrophils % 63.2 %; Nucleated Red Blood Cells % 0 %; Platelet Count 302 10^3/cmm (157-399); Red Blood Count 4.49 10^6/uL (3.85-5.65); White Blood Count 9.27 10^3/uL (3.29-11.43)
[2023-12-15 18:11] LABS: Alanine Aminotransferase 46 U/L (0-33); Albumin Level 4.7 g/dL (3.5-5.2); Alkaline Phosphatase 123 U/L (35-105); Anion Gap 17.8 (5-19); Aspartate Amino Transferase 24 U/L (0-32); Blood Urea Nitrogen 14 mg/dL (6-20); Calcium 9.6 mg/dL (8.5-10.5); Carbon Dioxide 24 mmol/L (22-29); Chloride 104 mmol/L (98-107); Creatinine Clr Calc Pharmacy 209.1638; Globulin 3.1 g/dL (1.3-4.6); Glomerular Filtration Rate 115.9 mL/min (90-130); Glucose 97 mg/dL (65-115); Osmolality Calculated 294 mOsm/kg (285-295); Potassium 3.8 mmol/L (3.5-5.1); Sodium 142 mmol/L (136-145); Total Bilirubin 0.4 mg/dL (0.15-1.2); Total Protein 7.8 g/dL (6.6-8.7)
[2023-12-15 18:32] LABS: HCG Qualitative Urine. Negative (Negative)
[2023-12-15 18:48] LABS: Bacteria Urine 1+ /hpf; Bilirubin Urine Neg (Negative); Blood Urine 3+ (Negative); Glucose Urine UA Norm (Normal); Ketones Urine Negative (Negative); Leukocyte Esterase Urine Trace (Negative); Mucus Urine TRACE /hpf; Nitrate Urine Negative (Negative); Protein Urine Neg (Negative); Specific Gravity, Urine 1.005 (1.005-1.030); Urine Appearance Clear (CLEAR); Urine Color Light yellow (Yellow); Urobilinogen Urine Neg (Negative); pH Urine 6 (5-7)
[2023-12-15 18:49] VITALS: BP 116/81; BP 134/93; BP 143/110; PULSE 100; PULSE 101; PULSE 118; O2SAT 97
[2023-12-15 19:58] VITALS: BP 102/79; PULSE 101; O2SAT 96
== END 2023-12-15 19:59 | disposition home or self-care (01) ==
PROVIDERS: Emergency Medicine; Emergency Provider Internal Medicine; PCP Family Medicine
DX: F41.9 Anxiety disorder, unspecified (principal); N39.0 Urinary tract infection, site not specified; Z79.82 Long term (current) use of aspirin
CPT/HCPCS: 80053; 81001; 81025; 85025; 93005; 99284

== ENCOUNTER 2023-12-19 12:03 | Emergency (ER) | payer MEDICAID, SELFPAY ==
[2023-10-18 16:27] VITALS: BP 124/77; BMI 44.3
[2023-12-19 12:05] VITALS: BP 140/102; PULSE 112; RESP 16; TEMP 36.8; O2SAT 98; BMI 46.4
--- NOTE | 2023-12-19 12:06 | XR_ITS ---
WS: [id number] Examination: XR chest 1V portable [id number] Reason for Exam: sob Date: December 19, 2023 Comparison: May 02, 2022 Findings: The cardiac silhouette appears prominent although this is an AP portable film. There is minimal linear scarring in the left base. There is no failure or effusion. Impression: The cardiac silhouette appears prominent in size. I see no failure consolidation. When the patient ca n tolerate I recommend PA and lateral imaging of the chest.
--- NOTE | 2023-12-19 12:14 | ED_ITS ---
HPI - Weakness 2 General: Chief complaint: Weakness Stated complaint: Genweakness Time Seen by Provider: 12/19/23 12:03 Source: patient and EMS Mode of arrival: EMS Limitations: no limitations History of Present Illness: 33-year-old female is well-known to the ER states she woke up this morning states she just felt very fatigued and tired she had some mild dyspnea as well denies any fever denies any cough denies any abdominal pain. She had no vomiting or diarrhea. Denies any worsening proving factors Associated symptoms: Denies chest pain, chills, fever(s), headache(s), nausea or vomiting Review of Systems 2 Const: Reports: fatigue; Denies: fever(s), chills, body aches or change in appetite Eyes: Denies: blurry vision or eye discomfort ENMT: Denies: throat pain or dental pain Card: Denies: chest pain Resp: Reports: dyspnea GI: Denies: abdominal pain, nausea, vomiting or diarrhea Musc: Denies: neck pain or back pain Skin/Breast: Denies: rash Neuro: Denies: headache(s) PFSH ED 2 PFSH: Medical History Psychiatric care Nonspecific chest pain Intermittent palpitations delivery delivered Family History Grandmother Diabetes Hypertension Family/Other Cancer breast Social History Smoking and tobacco/nicotine status: never used tobacco/nicotine Second hand smoke exposure: No Alcohol intake: never Substance/Drug Use: never Adopted: No Caregiver/support person: No Lives independently: No Household members: family and children Housing: Manufactured/Mobile home Marital status: Legally Number of children: 3 Highest education level completed: High School Graduate service: No Current occupational status: disabled Current occupational exposures/hazards: No Pets and animals: No Leisure activites: music, games, reading and other Leisure activities details: social media, board games, watch tv, read the Bible Do you think of yourself as: Straight/Heterosexual Current gender identity: Female Martha/Moravian: Anabaptism Special martha needs: No Agree to transfusion: Yes Female Reproductive History: Para: 3 Spontaneous abortions: No Physical Exam 2 Const: COMMON NORMALS: no acute distress, patient oriented x3 and healthy appearing HENMT: COMMON NORMALS: normocephalic and atraumatic HEAD & SCALP: n ormocephalic and atraumatic Neck/C-Spine: COMMON NORMALS: full ROM and supple Chest: COMMONS NORMALS: normal inspection of the chest Resp: COMMON NORMALS: normal respiratory effort, No retractions, No use of accessory muscles and clear to auscultation bilaterally AUSCULTATION: clear to auscultation bilaterally Cardio: COMMON NORMALS: regular rate, regular rhythm and No murmurs present (Cardio) RATE: regular rate RHYTHM: regular rhythm GI: COMMON NORMALS: Normal to inspection, nondistended, normoactive bowel sounds present, Soft to palpation, non-tender and no masses PALPATION: Yes Soft to palpation Extremity: COMMON NORMALS: normal to inspection and full ROM Neuro: COMMON NORMALS: patient oriented x3, moves all extremities and no focal motor deficits Psych: COMMON NORMALS: mental status grossly normal, Normal thought process present and cooperative THOUGHT PROCESS: Normal thought process present Skin: COMMON NORMALS: no rashes or lesions noted and no wounds GENERAL SKIN EXAM: no rashes or lesions noted Course 2 Vital Signs: Vital signs: Vital Signs Temperature 98.3 F 12/19/23 12:05 Pulse Rate 94 12/19/23 12:37 Respiratory Rate 16 12/19/23 13:22 Blood Pressure 150/86 12/19/23 13:22 Pulse Oximetry 98 12/19/23 13:22 Oxygen Delivery Me thod Room Air 12/19/23 13:22 MDM - Weakness Medical Decision Making Patient presents for generalized weakness she is well-appearing here blood works normal no signs of infection she stable for discharge she is follow-up with PCP and return if worsening. Medical Records I reviewed the patient's medical records. Lab Data I reviewed the patient's lab results. 12/19/23 12:19 12/19/23 12:19 Laboratory Results WBC 8.60 10^3/uL (3.29-11.43) 12/19/23 12:19 RBC 4.58 10^6/uL (3.85-5.65) 12/19/23 12:19 Hgb 13.60 g/dL (11.27-16.99) 12/19/23 12:19 Hct 40.8 % (36-47) 12/19/23 12:19 MCV 89.1 fl (85-98) 12/19/23 12:19 MCH 29.7 pg (27-33) 12/19/23 12:19 MCHC 33.3 g/dL (30-55) 12/19/23 12:19 RDW 12.1 % (12.1-15.1) 12/19/23 12:19 Plt Count 292 10^3/cmm (157-399) 12/19/23 12:19 MPV 9.3 fL (7.4-10.4) 12/19/23 12:19 Neut % (Auto) 52.9 % 12/19/23 12:19 Lymph % (Auto) 36.7 % 12/19/23 12:19 [place] % (Auto) 8.0 % 12/19/23 12:19 Eos % (Auto) 1.5 % 12/19/23 12:19 Baso % (Auto) 0.7 % 12/19/23 12:19 Neut # (Auto) 4.54 10^3/uL (1.8-7.7) 12/19/23 12:19 Lymph # (Auto) 3.2 10^3/uL (0.8-4.8) 12/19/23 12:19 [place] # (Auto) 0.7 10^3/uL (0.2-0.9) 12/19/23 12:19 Eos # (Auto) 0.1 10^3/uL (0.0-0.8) 12/19/23 12:19 Baso # (Auto) 0.1 10^3/uL (0.0-0.1) 12/19/23 12:19 Nucleated RBC % (auto) 0 % 12/19/23 12:19 Nucleated RBCs # 0.0 /100WBC 12/19/23 12:19 Sodium 144 mmol/L (136-145) 12/19/23 12:19 Potassium 4.1 mmol/L (3.5-5.1) 12/19/23 12:19 Chloride 107 mmol/L (98-107) 12/19/23 12:19 Carbon Dioxide 25 mmol/L (22-29) 12/19/23 12:19 Anion Gap 16.1 (5-19) 12/19/23 12:19 BUN 8 mg/dL (6-20) 12/19/23 12:19 Creatinine 0.7 mg/dL (0.5-0.9) 12/19/23 12:19 GFR Calculation 97.0 mL/min (90-130) 12/19/23 12:19 Glucose 92 mg/dL (65-115) 12/19/23 12:19 Calculated Osmolality 296 mOsm/kg (285-295) H 12/19/23 12:19 Calcium 9.6 mg/dL (8.5-10.5) 12/19/23 12:19 Total Bilirubin 0.3 mg/dL (0.15-1.2) 12/19/23 12:19 AST 38 U/L (0-32) H 12/19/23 12:19 ALT 65 U/L (0-33) H 12/19/23 12:19 Alkaline Phosphatase 138 U/L (35-105) H 12/19/23 12:19 Total Protein 8.2 g/dL (6.6-8.7) 12/19/23 12:19 Albumin 4.7 g/dL (3.5-5.2) 12/19/23 12:19 Globulin 3.5 g/dL (1.3-4.6) 12/19/23 12:19 TSH 1.86 uIU/mL (0.27-4.20) 12/19/23 12:19 HCG, Qual Negative (Negative) 12/19/23 12:19 Urine Color Light yellow (Yellow) 12/19/23 Unknown Urine Appearance Clear (CLEAR) 12/19/23 Unknown Urine pH 8 (5-7) H 12/19/23 Unknown Ur Specific [place] 1.015 (1.005-1.030) 12/19/23 Unknown Urine Protein Neg (Negative) 12/19/23 Unknown Urine Glucose (UA) Norm (Normal) 12/19/23 Unknown Urine Ketones Negative (Negative) 12/19/23 Unknown Urine Blood Neg (Negative) 12/19/23 Unknown Urine Nitrate Negative (Negative) 12/19/23 Unknown Urine Bilirubin Neg (Negative) 12/19/23 Unknown Prot Sulfosalicylic Acd Negative (Negative) 12/19/23 Unknown Urine Urobilinogen Norm mg/dL (Negative) 12/19/23 Unknown Ur Leukocyte Esterase Negative (Negative) 12/19/23 Unknown All radiology interpretation(s) finalized by discharge Discharge Plan Discharge Patient Disposition: Home Clinical Impression: Weakness Condition: Stable Prescriptions: No Action aspirin 325 mg tablet 325 mg PO BEDTIME omeprazole 40 mg capsule,delayed release(DR/EC) 40 mg PO BID 7 Days Qty: 14 0RF olanzapine 5 mg tablet,disintegrating 5 mg PO TID PRN (Reason: Agitation/Psychosis) 30 Days Qty: 90 2RF MaxFe (folate) 160 mg-1,700 mcg DFE-60 mcg tablet 1 tab PO DAILY hydroxyzine HCl 50 mg tablet 50 mg PO QID PRN (Reason: anxiety) Qty: 120 2RF risperidone 1 mg tablet 1 mg PO BID Qty: 60 2RF albuterol sulfate [Ventolin HFA] 90 mcg/actuation Hfa Aerosol Inhaler 2 puff INHALATION QID PRN (Reason: Shortness Of Breath) levofloxacin 500 mg tablet 500 mg PO DAILY 5 Days Qty: 5 0RF trazodone 100 mg tablet 200 mg PO QPM PRN (Reason: insomnia) Discharge Orders: Discharge ED (Routine); Ordered 12/19/23 Ordered By: Dequan Acuña Referrals: Emory Fuentes MD [Primary Care Provider] - 1-3 days Discharge Diet: Advance as tolerated Discharge Activity: Resume usual activity Patient Instructions: Weakness (ED) Coding Level of Care Code ED 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
[2023-12-19] MEDS: sodium chloride 0.9% 1,000 ML 999 ML IV (12:27)
[2023-12-19 12:35] LABS: Basophils # 0.1 10^3/uL (0.0-0.1); Basophils % 0.7 %; Eosinophils # 0.1 10^3/uL (0.0-0.8); Eosinophils % 1.5 %; Hematocrit 40.8 % (36-47); Lymphocytes # 3.2 10^3/uL (0.8-4.8); Lymphocytes % 36.7 %; Mean Corpuscular HGB Conc 33.3 g/dL (30-55); Mean Corpuscular Hemoglobin 29.7 pg (27-33); Mean Corpuscular Volume 89.1 fl (85-98); Mean Platelet Volume 9.3 fL (7.4-10.4); Monocytes # 0.7 10^3/uL (0.2-0.9); Neutrophils # 4.54 10^3/uL (1.8-7.7); Neutrophils % 52.9 %; Nucleated Red Blood Cells % 0 %; Platelet Count 292 10^3/cmm (157-399); Red Blood Count 4.58 10^6/uL (3.85-5.65); Red Cell Distribution Width 12.1 % (12.1-15.1)
[2023-12-19 12:37] VITALS: BP 140/102; PULSE 94; O2SAT 98
[2023-12-19 12:50] LABS: HCG, Serum Qual Negative (Negative)
[2023-12-19 13:08] LABS: Alanine Aminotransferase 65 U/L (0-33); Albumin Level 4.7 g/dL (3.5-5.2); Alkaline Phosphatase 138 U/L (35-105); Blood Urea Nitrogen 8 mg/dL (6-20); Calcium 9.6 mg/dL (8.5-10.5); Carbon Dioxide 25 mmol/L (22-29); Chloride 107 mmol/L (98-107); Creatinine Clr Calc Pharmacy 190.0224; Globulin 3.5 g/dL (1.3-4.6); Glucose 92 mg/dL (65-115); Osmolality Calculated 296 mOsm/kg (285-295); Sodium 144 mmol/L (136-145); Thyroid Stimulating Hormone 1.86 uIU/mL (0.27-4.20); Total Bilirubin 0.3 mg/dL (0.15-1.2); Total Protein 8.2 g/dL (6.6-8.7)
[2023-12-19 13:14] LABS: Anion Gap 16.1 (5-19); Potassium 4.1 mmol/L (3.5-5.1)
[2023-12-19 13:15] LABS: Aspartate Amino Transferase 38 U/L (0-32)
[2023-12-19 13:22] VITALS: BP 150/86; RESP 16; O2SAT 98
[2023-12-19 13:24] LABS: Add Urine Microscopic? NO; Urine Color Light yellow (Yellow)
[2023-12-19 13:25] LABS: Bilirubin Urine Neg (Negative); Blood Urine Neg (Negative); Glucose Urine UA Norm (Normal); Ketones Urine Negative (Negative); Leukocyte Esterase Urine Negative (Negative); Nitrate Urine Negative (Negative); Protein Urine Neg (Negative); Specific Gravity, Urine 1.015 (1.005-1.030); Sulfosalicylic Acid Urine Negative (Negative); Urine Appearance Clear (CLEAR); Urobilinogen Urine Norm (Negative); pH Urine 8 (5-7)
[2023-12-19 13:26] LABS: Charge for UA Resulting for Rev
[2023-12-19 14:31] VITALS: BP 133/90; PULSE 99; RESP 16; O2SAT 97
== END 2023-12-19 14:32 | disposition home or self-care (01) ==
PROVIDERS: Emergency Provider Emergency Medicine; PCP Family Medicine
DX: R53.1 Weakness (principal); Z79.82 Long term (current) use of aspirin
CPT/HCPCS: 71045; 80053; 81003; 84443; 84703; 85025; 96360; 96361; 99284; J7030

== ENCOUNTER 2023-12-21 10:15 | Emergency (ER) | payer MEDICAID, SELFPAY ==
[2023-10-18 16:27] VITALS: BP 124/77; BMI 44.3
[2023-12-21 10:24] VITALS: BP 159/103; PULSE 110; RESP 18; TEMP 36.8; O2SAT 96; BMI 44.4
[2023-12-21 10:59] LABS: Basophils % 0.4 %; Eosinophils # 0.1 10^3/uL (0.0-0.8); Hematocrit 43.5 % (36-47); Lymphocytes # 3.4 10^3/uL (0.8-4.8); Lymphocytes % 30.9 %; Mean Corpuscular HGB Conc 33.6 g/dL (30-55); Mean Corpuscular Hemoglobin 30.1 pg (27-33); Mean Corpuscular Volume 89.7 fl (85-98); Mean Platelet Volume 8.8 fL (7.4-10.4); Monocytes # 0.8 10^3/uL (0.2-0.9); Monocytes % 7.3 %; Neutrophils # 6.52 10^3/uL (1.8-7.7); Nucleated Red Blood Cells % 0 %; Platelet Count 355 10^3/cmm (157-399); Red Blood Count 4.85 10^6/uL (3.85-5.65); Red Cell Distribution Width 12.2 % (12.1-15.1); White Blood Count 10.85 10^3/uL (3.29-11.43)
--- NOTE | 2023-12-21 11:05 | W.ED.GENADLT ---
HPI - General Adult General: Chief complaint: General Medical Stated complaint: weakness Time Seen by Provider: 12/21/23 10:39 Source: patient Mode of arrival: ambulatory History of Present Illness: 33-year-old female presents emergency room complaining of weakness and just generally not feeling well. She was seen 2 days ago in the emergency room and evaluated. Laboratory studies at that time were normal with exception of slightly elevated liver enzymes which she has had in the past. Associated symptoms: Reports dyspnea (minor); Deny chest pain, nausea, rash, palpitations or vomiting Review of Systems Const: Denies: fever(s) or chills Card: Denies: chest pain or palpitations Resp: Reports: dyspnea (minor) and non-productive cough; Denies: productive cough, wheezing or chest congestion GI: Denies: abdominal pain, nausea or vomiting : Denies: dysuria, urinary frequency or urinary urgency Musc: Denies: neck pain or back pain Skin/Breast: Denies: rash PFSH ED PFSH: Medical History Psychiatric care Nonspecific chest pain Intermittent palpitations delivery delivered Family History Grandmother Diabetes Hypertension Family/Other Cancer breast Social History Smoking and tobacco/nicotine status: never used tobacco/nicotine Second hand smoke exposure: No Alcohol intake: never Substance/Drug Use: never Adopted: No Caregiver/support person: No Lives independently: No Household members: family and children Housing: Manufactured/Mobile home Marital status: Legally Number of children: 3 Highest education level completed: High School Graduate service: No Current occupational status: disabled Current occupational exposures/hazards: No Pets and animals: No Leisure activites: music, games, reading and other Leisure activities details: social media, board games, watch tv, read the Bible Do you think of yourself as: Straight/Heterosexual Current gender identity: Female Martha/Methodist: Oriental Orthodox Special martha needs: No Agree to transfusion: Yes Female Reproductive History: Para: 3 Spontaneous abortions: No Physical Exam Const: COMMON NORMALS: no acute distress GENERAL APPEARANCE: cooperative and comfortable ORIENTATION/CONSCIOUSNESS: Yes awake, Yes oriented to person, Yes oriented to place and Yes oriented to time HENMT: COMMON NORMALS: normocephalic, atraumatic and hearing grossly normal bilaterally HEAD & SCALP: normocephalic and atraumatic Resp: COMMON NORMALS: normal respiratory effort, No retractions, No use of accessory muscles and clear to auscultation bilaterally AUSCULTATION: clear to auscultation bilaterally Cardio: COMMON NORMALS: regular rate, regular rhythm and No murmurs present (Cardio) RATE: regular rate RHYTHM: regular rhythm GI: COMMON NORMALS: Soft to palpation and No hepatosplenomegaly present AUSCULTATION: Yes normoactive bowel sounds PALPATION: Yes Soft to palpation, No Tenderness to palpation present (GI), No Guarding due to palpation present (GI) and Yes No hepatosplenomegaly present Extremity: COMMON NORMALS: normal to inspection, capillary refill normal, no clubbing, cyanosis or edema, no calf tenderness and no pedal edema Neuro: SENSORIUM/ORIENTATION: Yes oriented to person, Yes oriented to place and Yes oriented to time Skin: COMMON NORMALS: no rashes or lesions noted GENERAL SKIN EXAM: no rashes or lesions noted Course Vital Signs: Vital signs: Vital Signs Temperature 98.2 F 12/21/23 10:24 Pulse Rate 110 H 12/21/23 10:24 Respiratory Rate 18 12/21/23 10:24 Blood Pressure 159/103 12/21/23 10:24 Pulse Oximetry 96 12/21/23 10:24 Oxygen Delivery Me thod Room Air 12/21/23 10:24 [facility] - General Adult Medical Decision Making No leukocytosis vital signs are normal she was a little bit tachycardic that improved over time she was given some IV fluids. She denies having any chest pain or tightness at this time. Blood pressure at the time of discharge is 125/68 heart rate also decreased. Patient is asymptomatic. She still is very anxious about her overall health. The remainder of the evaluation was normal. She does have slightly elevated liver enzymes this been going on for some time. She has no biliary colic symptoms. Encouraged her to follow-up with her primary care doctor to evaluate further. In talking to her does not sound like she has had any biliary colic like symptoms other times in the past. I do not believe this is anything acute but should have follow-up with her primary. Medical Records I reviewed the patient's medical records. Lab Data I reviewed the patient's lab results. 12/21/23 10:31 12/21/23 10:31 Laboratory Results WBC 10.85 10^3/uL (3.29-11.43) 12/21/23 10:31 RBC 4.85 10^6/uL (3.85-5.65) 12/21/23 10:31 Hgb 14.60 g/dL (11.27-16.99) 12/21/23 10:31 Hct 43.5 % (36-47) 12/21/23 10:31 MCV 89.7 fl (85-98) 12/21/23 10:31 MCH 30.1 pg (27-33) 12/21/23 10:31 MCHC 33.6 g/dL (30-55) 12/21/23 10:31 RDW 12.2 % (12.1-15.1) 12/21/23 10:31 Plt Count 355 10^3/cmm (157-399) 12/21/23 10:31 MPV 8.8 fL (7.4-10.4) 12/21/23 10:31 Neut % (Auto) 60.0 % 12/21/23 10:31 Lymph % (Auto) 30.9 % 12/21/23 10:31 [place] % (Auto) 7.3 % 12/21/23 10:31 Eos % (Auto) 1.0 % 12/21/23 10:31 Baso % (Auto) 0.4 % 12/21/23 10:31 Neut # (Auto) 6.52 10^3/uL (1.8-7.7) 12/21/23 10:31 Lymph # (Auto) 3.4 10^3/uL (0.8-4.8) 12/21/23 10:31 [place] # (Auto) 0.8 10^3/uL (0.2-0.9) 12/21/23 10:31 Eos # (Auto) 0.1 10^3/uL (0.0-0.8) 12/21/23 10:31 Baso # (Auto) 0.0 10^3/uL (0.0-0.1) 12/21/23 10:31 Nucleated RBC % (auto) 0 % 12/21/23 10:31 Nucleated RBCs # 0.0 /100WBC 12/21/23 10:31 Sodium 142 mmol/L (136-145) 12/21/23 10:31 Potassium 3.9 mmol/L (3.5-5.1) 12/21/23 10:31 Chloride 102 mmol/L (98-107) 12/21/23 10:31 Carbon Dioxide 25 mmol/L (22-29) 12/21/23 10:31 Anion Gap 18.9 (5-19) 12/21/23 10:31 BUN 13 mg/dL (6-20) 12/21/23 10:31 Creatinine 0.7 mg/dL (0.5-0.9) 12/21/23 10:31 GFR Calculation 97.0 mL/min (90-130) 12/21/23 10:31 Glucose 99 mg/dL (65-115) 12/21/23 10:31 Calculated Osmolality 294 mOsm/kg (285-295) 12/21/23 10:31 Calcium 10.2 mg/dL (8.5-10.5) 12/21/23 10:31 Total Bilirubin 0.4 mg/dL (0.15-1.2) 12/21/23 10:31 AST 33 U/L (0-32) H 12/21/23 10:31 ALT 68 U/L (0-33) H 12/21/23 10:31 Alkaline Phosphatase 139 U/L (35-105) H 12/21/23 10:31 Total Protein 8.7 g/dL (6.6-8.7) 12/21/23 10:31 Albumin 5.0 g/dL (3.5-5.2) 12/21/23 10:31 Globulin 3.7 g/dL (1.3-4.6) 12/21/23 10:31 Urine Color Light yellow (Yellow) 12/21/23 12:41 Urine Appearance Clear (CLEAR) 12/21/23 12:41 Urine pH 7 (5-7) 12/21/23 12:41 Ur Specific [place] 1.010 (1.005-1.030) 12/21/23 12:41 Urine Protein Neg (Negative) 12/21/23 12:41 Urine Glucose (UA) Norm (Normal) 12/21/23 12:41 Urine Ketones Negative (Negative) 12/21/23 12:41 Urine Blood Neg (Negative) 12/21/23 12:41 Urine Nitrate Negative (Negative) 12/21/23 12:41 Urine Bilirubin Neg (Negative) 12/21/23 12:41 Urine Urobilinogen Norm mg/dL (Negative) 12/21/23 12:41 Ur Leukocyte Esterase Negative (Negative) 12/21/23 12:41 Hepatitis A IgM Ab Non-reactive (Nonreactive) 12/21/23 10:31 Hep Bs Antigen Non-reactive (Nonreactive) 12/21/23 10:31 Hep B Core IgM Ab Non-reactive (Nonreactive) 12/21/23 10:31 Hepatitis C Antibody Non-reactive (Nonreactive) 12/21/23 10:31 No radiology studies performed this visit Discharge Plan Discharge Patient Disposition: Home Clinical Impression: Weakness, Anxiety, Transaminitis Condition: Stable Prescriptions: No Action aspirin 325 mg tablet 325 mg PO BEDTIME omeprazole 40 mg capsule,delayed release(DR/EC) 40 mg PO BID 7 Days Qty: 14 0RF olanzapine 5 mg tablet,disintegrating 5 mg PO TID PRN (Reason: Agitation/Psychosis) 30 Days Qty: 90 2RF MaxFe (folate) 160 mg-1,700 mcg DFE-60 mcg tablet 1 tab PO DAILY hydroxyzine HCl 50 mg tablet 50 mg PO QID PRN (Reason: anxiety) Qty: 120 2RF risperidone 1 mg tablet 1 mg PO BID Qty: 60 2RF cefuroxime axetil 500 mg tablet 500 mg PO BID trazodone 100 mg tablet 200 mg PO QPM PRN (Reason: insomnia) Discharge Orders: Discharge ED (Routine); Ordered 12/21/23 Ordered By: Dima Encinas Referrals: Emory Fuentes MD [Primary Care Provider] - Discharge Diet: Usual diet Discharge Activity: Increase activity as tolerated Patient Instructions: Opioid Safety, Pain Management Activity Restrictions/Additional Instructions: Thank you for choosing [facility] for your healthcare needs today. Please realize this is an emergency room and that we are providing you with a medical screening exam and this may not be complete and all inclusive of all the testing and or work up that you may need to determine your ailment or severity of your illness. It is very important that you follow up as instructed or that you return to the Emergency Department should you have concerns or if your condition changes or worsens in any way. You did have a mild elevation of your liver enzymes today this has been an ongoing issue for some time hepatitis panel was negative follow-up with your primary care doctor for this. You should also follow-up with your primary care doctor to evaluate your blood pressure was mildly elevated when you first arrived but normalized. Coding Level of Care Code ED Automotive Technology Instructor for Serina Chandler
[2023-12-21 11:12] LABS: Alanine Aminotransferase 68 U/L (0-33); Alkaline Phosphatase 139 U/L (35-105); Anion Gap 18.9 (5-19); Aspartate Amino Transferase 33 U/L (0-32); Blood Urea Nitrogen 13 mg/dL (6-20); Calcium 10.2 mg/dL (8.5-10.5); Carbon Dioxide 25 mmol/L (22-29); Chloride 102 mmol/L (98-107); Creatinine Clr Calc Pharmacy 181.7604; Globulin 3.7 g/dL (1.3-4.6); Glucose 99 mg/dL (65-115); Osmolality Calculated 294 mOsm/kg (285-295); Potassium 3.9 mmol/L (3.5-5.1); Sodium 142 mmol/L (136-145); Total Bilirubin 0.4 mg/dL (0.15-1.2); Total Protein 8.7 g/dL (6.6-8.7)
[2023-12-21 11:31] VITALS: BP 117/78; PULSE 99; O2SAT 98
[2023-12-21] MEDS: sodium chloride 0.9% 1,000 ML 999 ML IV (11:50)
[2023-12-21 12:01] VITALS: BP 115/68; PULSE 101; O2SAT 94
[2023-12-21 12:13] LABS: Hepatitis A Antibody IgM Non-Reactive (Nonreactive); Hepatitis B Core IgM Non-Reactive (Nonreactive); Hepatitis B Surface Antigen Non-Reactive (Nonreactive); Hepatitis C Virus Antibody Non-Reactive (Nonreactive)
[2023-12-21 12:52] LABS: Add Urine Microscopic? NO; Charge for UA Resulting for Rev
[2023-12-21 12:58] LABS: Bilirubin Urine Neg (Negative); Blood Urine Neg (Negative); Glucose Urine UA Norm (Normal); Ketones Urine Negative (Negative); Leukocyte Esterase Urine Negative (Negative); Nitrate Urine Negative (Negative); Protein Urine Neg (Negative); Urine Appearance Clear (CLEAR); Urine Color Light yellow (Yellow); Urobilinogen Urine Norm (Negative); pH Urine 7 (5-7)
[2023-12-21 13:59] VITALS: BP 125/68; PULSE 98; O2SAT 96
== END 2023-12-21 14:32 | disposition home or self-care (01) ==
PROVIDERS: Emergency Provider Family Medicine; PCP Family Medicine
DX: R53.1 Weakness (principal); F41.9 Anxiety disorder, unspecified; R74.01 Elevation of levels of liver transaminase levels; Z79.82 Long term (current) use of aspirin
CPT/HCPCS: 51701; 80053; 80074; 81003; 85025; 96360; 99284; J7030

== ENCOUNTER 2024-02-20 12:22 | Emergency (ER) | payer BC, MEDICAID, SELFPAY ==
[2023-10-18 16:27] VITALS: BP 124/77; BMI 44.3
[2024-02-20 12:25] VITALS: BP 114/84; PULSE 81; RESP 16; TEMP 36.8; O2SAT 97; BMI 41.8
--- NOTE | 2024-02-20 12:27 | ECG_ITS ---
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 Measurements Intervals [place] Rate: 83 P: 28 NE: 152 QRS: -8 QRSD: 93 T: 5 QT: 337 QTc: 397 Interpretive Statements SINUS RHYTHM LOW QRS VOLTAGE IN PRECORDIAL LEADS [QRS DEFLECTION < 1.0 mV IN CHEST LEADS] POSSIBLE ANTERIOR MYOCARDIAL INFARCTION , PROBABLY OLD [30 ms Q WAVE IN V3/V4, OR R < 0.2 mV IN V4] Compared to ECG 12/15/2023 17:17:43 No significant changes Electronically Signed On 02-20-2024 16:19:19 CDT by Fab Stephens M.D. [email or web address] ([email or web address] [facility] [id number] f
--- NOTE | 2024-02-20 12:27 | XRR_ITS ---
PROCEDURE INFORMATION: Exam: XR Chest Exam date and time: 02/20/2024 12:52 PM Age: 33 years old Clinical indication: Pain; Angina pectoris; Additional info: Cp TECHNIQUE: Imaging protocol: Radiologic exam of the chest. Views: 1 view. COMPARISON: 1. CT angio chest PE protcl [id number] 04/18/2022 1:30 PM 2. CR XR chest 1V portable [id number] 12/19/2023 12:33 PM FINDINGS: Lungs: Pulmonary hypoinflation without consolidation. Pleural spaces: No substantial pleural effusion or pneumothorax. Heart/Mediastinum: Stable borderline widening of the cardiac silhouette likely on the basis of prominent pericardial fat seen on comparison chest CT. Bones/joints: Unremarkable. XR/XR chest 1V portable [id number] IMPRESSION: No acute findings.
--- NOTE | 2024-02-20 12:35 | ED_ITS ---
HPI - Chest Pain 2 General: Chief Complaint: Chest Pain Stated Complaint: chest pain Time Seen by Provider: 02/20/24 12:24 Source: patient and EMS Mode of arrival: EMS Limitations: no limitations History of Present Illness: 33-year-old female who is very well-know n to the ER states that she is at [facility] on Monday started having she felt like some anxiety and then been having chest pain ever since and states sharp pain in the center of her chest she denies any fever denies any worse improving factors. Associated symptoms: Deny abdominal pain, dyspnea, fever(s), nausea or vomiting Review of Systems 2 Const: Denies: fever(s), chills, body aches or change in appetite ENMT: Denies: throat pain or dental pain Card: Reports: chest pain Resp: Denies: dyspnea GI: Denies: abdominal pain, nausea, vomiting or diarrhea Musc: Denies: neck pain or back pain Skin/Breast: Denies: rash Neuro: Denies: headache(s) PFSH ED 2 PFSH: Medical History Psychiatric care Nonspecific chest pain Intermittent palpitations delivery delivered Family History Grandmother Diabetes Hypertension Family/Other Cancer breast Social History Smoking and tobacco/nicotine status: never used tobacco/nicotine Second hand smoke exposure: No Alcohol intake: never Substance/Drug Use: never Adopted: No Caregiver/support person: No Lives independently: No Household members: family and children Housing: Manufactured/Mobile home Marital status: Legally Number of children: 3 Highest education level completed: High School Graduate service: No Current occupational status: disabled Current occupational exposures/hazards: No Pets and animals: No Leisure activites: music, games, reading and other Leisure activities details: social media, board games, watch tv, read the Bible Do you think of yourself as: Straight/Heterosexual Current gender identity: Female Martha/Religious: Baptism Special martha needs: No Agree to transfusion: Yes Female Reproductive History: Para: 3 Spontaneous abortions: No Physical Exam 2 Const: COMMON NORMALS: no acute distress, patient oriented x3 and healthy appearing HENMT: COMMON NORMALS: normocephalic and atraumatic HEAD & SCALP: n ormocephalic and atraumatic Eye: COMMON NORMALS: Equal, round and reactive pupils present and EOMs intact bilaterally PUPIL: Yes Equal, round and reactive pupils present Neck/C-Spine: COMMON NORMALS: full ROM and supple Chest: COMMONS NORMALS: normal inspection of the chest and normal palpation of entire chest wall Resp: COMMON NORMALS: normal respiratory effort, No retractions, No use of accessory muscles and clear to auscultation bilaterally AUSCULTATION: clear to auscultation bilaterally Cardio: COMMON NORMALS: regular rate, regular rhythm and No murmurs present (Cardio) RATE: regular rate RHYTHM: regular rhythm GI: COMMON NORMALS: Normal to inspection, nondistended, normoactive bowel sounds present, Soft to palpation, non-tender and no masses PALPATION: Yes Soft to palpation Extremity: COMMON NORMALS: normal to inspection and full ROM Neuro: COMMON NORMALS: patient oriented x3, moves all extremities and no focal motor deficits Psych: COMMON NORMALS: mental status grossly normal, Normal thought process present and cooperative THOUGHT PROCESS: Normal thought process present Skin: COMMON NORMALS: no rashes or lesions noted and no wounds GENERAL SKIN EXAM: no rashes or lesions noted Course 2 Vital Signs: Vital signs: Vital Signs Temperature 98.3 F 02/20/24 14:16 Pulse Rate 92 02/20/24 14:16 Respiratory Rate 16 02/20/24 14:16 Blood Pressure 114/84 02/20/24 14:16 Pulse Oximetry 97 02/20/24 14:16 Oxygen Delivery Me thod Room Air 02/20/24 12:40 MDM - Chest Pain Medical Decision Making Patient presents for chest pains atypical in nature she is well-appearing here troponins negative she has no signs of ACS or PE she stable for discharge follow-up PCP return if worsening. Medical Records I reviewed the patient's medical records. Lab Data I reviewed the patient's lab results. 02/20/24 12:32 02/20/24 13:10 Radiology Impressions Chest X-Ray 02/20/24 12:27 IMPRESSION: No acute findings. Laboratory Results WBC 8.61 10^3/uL (3.29-11.43) 02/20/24 12:32 RBC 4.44 10^6/uL (3.85-5.65) 02/20/24 12:32 Hgb 13.40 g/dL (11.27-16.99) 02/20/24 12:32 Hct 40.0 % (36-47) 02/20/24 12:32 MCV 90.1 fl (85-98) 02/20/24 12:32 MCH 30.2 pg (27-33) 02/20/24 12:32 MCHC 33.5 g/dL (30-55) 02/20/24 12:32 RDW 13.1 % (12.1-15.1) 02/20/24 12:32 Plt Count 294 10^3/cmm (157-399) 02/20/24 12:32 MPV 9.3 fL (7.4-10.4) 02/20/24 12:32 Neut % (Auto) 52.8 % 02/20/24 12:32 Lymph % (Auto) 37.9 % 02/20/24 12:32 [place] % (Auto) 7.1 % 02/20/24 12:32 Eos % (Auto) 1.3 % 02/20/24 12:32 Baso % (Auto) 0.6 % 02/20/24 12:32 Neut # (Auto) 4.55 10^3/uL (1.8-7.7) 02/20/24 12:32 Lymph # (Auto) 3.3 10^3/uL (0.8-4.8) 02/20/24 12:32 [place] # (Auto) 0.6 10^3/uL (0.2-0.9) 02/20/24 12:32 Eos # (Auto) 0.1 10^3/uL (0.0-0.8) 02/20/24 12:32 Baso # (Auto) 0.1 10^3/uL (0.0-0.1) 02/20/24 12:32 Nucleated RBC % (auto) 0 % 02/20/24 12:32 Nucleated RBCs # 0.0 /100WBC 02/20/24 12:32 Sodium 142 mmol/L (136-145) 02/20/24 13:10 Potassium 3.8 mmol/L (3.5-5.1) 02/20/24 13:10 Chloride 105 mmol/L (98-107) 02/20/24 13:10 Carbon Dioxide 25 mmol/L (22-29) 02/20/24 13:10 Anion Gap 15.8 (5-19) 02/20/24 13:10 BUN 9 mg/dL (6-20) 02/20/24 13:10 Creatinine 0.6 mg/dL (0.5-0.9) 02/20/24 13:10 GFR Calculation 115.9 mL/min (90-130) 02/20/24 13:10 Glucose 97 mg/dL (65-115) 02/20/24 13:10 Calculated Osmolality 293 mOsm/kg (285-295) 02/20/24 13:10 Calcium 8.9 mg/dL (8.5-10.5) 02/20/24 13:10 Total Bilirubin 0.4 mg/dL (0.15-1.2) 02/20/24 13:10 AST 23 U/L (0-32) 02/20/24 13:10 ALT 38 U/L (0-33) H 02/20/24 13:10 Alkaline Phosphatase 129 U/L (35-105) H 02/20/24 13:10 Troponin T Baseline < 6 ng/L (0-10) 02/20/24 13:10 Total Protein 7.5 g/dL (6.6-8.7) 02/20/24 13:10 Albumin 4.4 g/dL (3.5-5.2) 02/20/24 13:10 Globulin 3.1 g/dL (1.3-4.6) 02/20/24 13:10 Lipase 40 U/L (13-60) 02/20/24 13:10 All radiology interpretation(s) finalized by discharge EKG Data EKG 1: I personally reviewed and interpreted this EKG as follows: EKG interpretation date: 02/20/24 EKG interpretation time: 12:32 Interpretation: nsr hr [address] or t wave abnormalities qrs 93 qtc 377 Discharge Plan Discharge Patient Disposition: Home Clinical Impression: Chest pain Condition: Stable Prescriptions: No Action omeprazole 40 mg capsule,delayed release(DR/EC) 40 mg PO BID 7 Days Qty: 14 0RF MaxFe (folate) 160 mg-1,700 mcg DFE-60 mcg tablet 1 tab PO DAILY risperidone 1 mg tablet 1 mg PO BID Qty: 60 2RF trazodone 100 mg tablet 200 mg PO QPM PRN (Reason: insomnia) Qty: 60 2RF sertraline [Zoloft] 50 mg tablet 50 mg PO DAILY Qty: 30 2RF prazosin 5 mg capsule 5 mg PO BEDTIME Discharge Orders: Discharge ED (Routine); Ordered 02/20/24 Ordered By: Dequan Acuña Referrals: Emory Fuentes MD [Primary Care Provider] - Discharge Diet: Advance as tolerated Discharge Activity: Resume usual activity Patient Instructions: Chest Pain (ED) Coding Level of Care Code ED Aircraft 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
[2024-02-20] MEDS: LORazepam 2 mg/mL INJ 10 mL MDV 1 MG IVP (12:38)
[2024-02-20 12:40] VITALS: BP 114/84; PULSE 92; O2SAT 97
[2024-02-20 12:45] LABS: Basophils # 0.1 10^3/uL (0.0-0.1); Basophils % 0.6 %; Eosinophils # 0.1 10^3/uL (0.0-0.8); Eosinophils % 1.3 %; Lymphocytes # 3.3 10^3/uL (0.8-4.8); Lymphocytes % 37.9 %; Mean Corpuscular HGB Conc 33.5 g/dL (30-55); Mean Corpuscular Hemoglobin 30.2 pg (27-33); Mean Corpuscular Volume 90.1 fl (85-98); Mean Platelet Volume 9.3 fL (7.4-10.4); Monocytes # 0.6 10^3/uL (0.2-0.9); Monocytes % 7.1 %; Neutrophils # 4.55 10^3/uL (1.8-7.7); Neutrophils % 52.8 %; Nucleated Red Blood Cells % 0 %; Platelet Count 294 10^3/cmm (157-399); Red Blood Count 4.44 10^6/uL (3.85-5.65); Red Cell Distribution Width 13.1 % (12.1-15.1); White Blood Count 8.61 10^3/uL (3.29-11.43)
[2024-02-20 13:37] LABS: Alanine Aminotransferase 38 U/L (0-33); Albumin Level 4.4 g/dL (3.5-5.2); Alkaline Phosphatase 129 U/L (35-105); Anion Gap 15.8 (5-19); Aspartate Amino Transferase 23 U/L (0-32); Blood Urea Nitrogen 9 mg/dL (6-20); Calcium 8.9 mg/dL (8.5-10.5); Carbon Dioxide 25 mmol/L (22-29); Chloride 105 mmol/L (98-107); Creatinine Clr Calc Pharmacy 199.5248; Globulin 3.1 g/dL (1.3-4.6); Glomerular Filtration Rate 115.9 mL/min (90-130); Glucose 97 mg/dL (65-115); Lipase 40 U/L (13-60); Osmolality Calculated 293 mOsm/kg (285-295); Potassium 3.8 mmol/L (3.5-5.1); Sodium 142 mmol/L (136-145); Total Bilirubin 0.4 mg/dL (0.15-1.2); Total Protein 7.5 g/dL (6.6-8.7)
[2024-02-20 13:38] LABS: Troponin(5th) Baseline < 6 ng/L (0-10)
[2024-02-20 14:16] VITALS: BP 114/84; PULSE 92; RESP 16; TEMP 36.8; O2SAT 97
== END 2024-02-20 14:20 | disposition home or self-care (01) ==
PROVIDERS: Emergency Provider Emergency Medicine; PCP Family Medicine
DX: R07.9 Chest pain, unspecified (principal)
CPT/HCPCS: 36415; 71045; 80053; 83690; 84484; 85025; 93005; 96374; 99285; J2060

== ENCOUNTER 2024-02-29 09:33 | Emergency (ER) | payer BC, MEDICAID, SELFPAY ==
[2023-10-18 16:27] VITALS: BP 124/77; BMI 44.3
[2024-02-29 09:33] VITALS: BP 123/76; PULSE 103; RESP 18; TEMP 36.6; O2SAT 97; BMI 41.8
[2024-02-29] MEDS: sodium chloride 0.9% 1,000 ML 999 ML IV (10:03)
[2024-02-29] MEDS: ondansetron 2 mg/ML SDV 2 mL 4 MG IVP (10:03)
--- NOTE | 2024-02-29 10:06 | PC.PHAR ---
PT STATES STARTED BACK TAKING OLANZAPINE 5 MG TID PRN AGGITATION OR ANXIETY LAST FILL 12/10/22 30DS. FRANCAS STATES LAST FILL WAS 12/11/23 #90. PT ALSO TAPERED OFF OF TRAZODONE 100MG 2 TABS QPM PRN.
--- NOTE | 2024-02-29 10:35 | W.ED.ABDPA2 ---
HPI - Abdominal Pain General: Chief Complaint: Abdominal Pain Stated Complaint: abd pain, dizzy Time Seen by Provider: 02/29/24 09:42 History of Present Illness: 33-year-old female presents emergency department chief complaint of abdominal pain with bowel movements. Patient endorses that she has some moderate nausea with her recent bowel movement as well as this stinging sensation located rectal region patient does not endorse any fevers or chills patient does report slight appetite reduction reporting no other associated symptoms. Associated Symptoms: Reports constipation and nausea; Denies chills, fever(s) and vomiting Review of Systems General: Reports: 10 or more systems reviewed and unremarkable except in HPI and below Const: Denies: fever(s), chills, fatigue or malaise Eyes: Denies: change in vision or blurry vision Card: Denies: chest pain or palpitations Resp: Denies: dyspnea or productive cough GI: Reports: abdominal pain, nausea, constipation and rectal pain; Denies: vomiting : Denies: flank pain Musc: Denies: extremity pain or extremity swelling Skin/Breast: Denies: rash or pruritus Neuro: Denies: headache(s) Psych: Denies: anxiety or depression Sang/Lymph: Denies: easy bleeding All/Imm: Denies: urticaria, throat swelling or facial swelling PFSH ED PFSH: Medical History Psychiatric care Nonspecific chest pain Intermittent palpitations delivery delivered Family History Grandmother Diabetes Hypertension Family/Other Cancer breast Social History Smoking and tobacco/nicotine status: never used tobacco/nicotine Second hand smoke exposure: No Alcohol intake: never Substance/Drug Use: never Adopted: No Caregiver/support person: No Lives independently: No Household members: family and children Housing: Manufactured/Mobile home Marital status: Legally Number of children: 3 Highest education level completed: High School Graduate service: No Current occupational status: disabled Current occupational exposures/hazards: No Pets and animals: No Leisure activites: music, games, reading and other Leisure activities details: social media, board games, watch tv, read the Bible Do you think of yourself as: Straight/Heterosexual Current gender identity: Female Martha/Taoism: Nondenominational Special martha needs: No Agree to transfusion: Yes Female Reproductive History: Para: 3 Spontaneous abortions: No Physical Exam Const: COMMON NORMALS: no acute distress, patient oriented x3 and healthy appearing HENMT: COMMON NORMALS: normocephalic and atraumatic HEAD & SCALP: normocephalic and atraumatic Eye: COMMON NORMALS: Equal, round and reactive pupils present and EOMs intact bilaterally PUPIL: Yes Equal, round and reactive pupils present Neck/C-Spine: COMMON NORMALS: full ROM, supple and no JVD Lymph: LYMPHATIC: no lymphadenopathy noted Chest: COMMONS NORMALS: normal inspection of the chest and normal palpation of entire chest wall Resp: COMMON NORMALS: normal respiratory effort, No retractions and clear to auscultation bilaterally EFFORT & INSPECTION: Yes able to speak in complete sentences and Yes symmetric chest movement AUSCULTATION: clear to auscultation bilaterally Cardio: COMMON NORMALS: no JVD, regular rate and regular rhythm RATE: regular rate RHYTHM: regular rhythm GI: COMMON NORMALS: Normal to inspection, nondistended, normoactive bowel sounds present, Soft to palpation and non-tender INSPECTION: Yes normal to inspection PALPATION: Yes Soft to palpation : COMMON NORMALS: Yes no CVA tenderness BLADDER/KIDNEY EXAM: Yes no CVA tenderness Back/Pelvis: COMMON NORMALS: no CVA tenderness Extremity: COMMON NORMALS: normal to inspection and full ROM Neuro: COMMON NORMALS: patient oriented x3, CN's II-XII intact bilaterally, moves all extremities and no focal motor deficits Psych: COMMON NORMALS: mental status grossly normal, Normal thought process present, cooperative and normal affect THOUGHT PROCESS: Normal thought process present Skin: COMMON NORMALS: no rashes or lesions noted GENERAL SKIN EXAM: no rashes or lesions noted Course Vital Signs: Vital signs: Vital Signs Temperature 97.8 F 02/29/24 09:33 Pulse Rate 103 H 02/29/24 09:33 Respiratory Rate 18 02/29/24 09:33 Blood Pressure 123/76 02/29/24 09:33 Pulse Oximetry 97 02/29/24 09:33 Oxygen Delivery Me thod Room Air 02/29/24 09:33 MDM - Abdominal Pain Medical Decision Making Due to patient's symptoms and condition lab work imaging will be obtained we will continue to follow. Lab work came back reassuring patient appears to have a mild case of constipation with possible early rectal hemorrhoid we will be starting her on some Anusol for her symptoms as well as Vicky-Colace advised further follow-up primary care in 2 to 3 days in which to return the interim if any of her symptoms persist or worse. Differential Diagnosis Likely abdominal pain, constipation, gastroenteritis, pancreatitis and small bowel obstruction Lab Data 02/29/24 10:52 02/29/24 10:52 Labs/Radiology: Radiology Impressions Chest/Abdomen X-ray 02/29/24 11:18 IMPRESSION: No acute findings. Laboratory Results WBC 8.39 10^3/uL (3.29-11.43) 02/29/24 10:52 RBC 4.45 10^6/uL (3.85-5.65) 02/29/24 10:52 Hgb 13.50 g/dL (11.27-16.99) 02/29/24 10:52 Hct 40.1 % (36-47) 02/29/24 10:52 MCV 90.1 fl (85-98) 02/29/24 10:52 MCH 30.3 pg (27-33) 02/29/24 10:52 MCHC 33.7 g/dL (30-55) 02/29/24 10:52 RDW 13.2 % (12.1-15.1) 02/29/24 10:52 Plt Count 319 10^3/cmm (157-399) 02/29/24 10:52 MPV 9.3 fL (7.4-10.4) 02/29/24 10:52 Neut % (Auto) 68.1 % 02/29/24 10:52 Lymph % (Auto) 23.4 % 02/29/24 10:52 [place] % (Auto) 6.8 % 02/29/24 10:52 Eos % (Auto) 0.8 % 02/29/24 10:52 Baso % (Auto) 0.5 % 02/29/24 10:52 Neut # (Auto) 5.72 10^3/uL (1.8-7.7) 02/29/24 10:52 Lymph # (Auto) 2.0 10^3/uL (0.8-4.8) 02/29/24 10:52 [place] # (Auto) 0.6 10^3/uL (0.2-0.9) 02/29/24 10:52 Eos # (Auto) 0.1 10^3/uL (0.0-0.8) 02/29/24 10:52 Baso # (Auto) 0.0 10^3/uL (0.0-0.1) 02/29/24 10:52 Nucleated RBC % (auto) 0 % 02/29/24 10:52 Nucleated RBCs # 0.0 /100WBC 02/29/24 10:52 Sodium 141 mmol/L (136-145) 02/29/24 10:52 Potassium 4.2 mmol/L (3.5-5.1) 02/29/24 10:52 Chloride 103 mmol/L (98-107) 02/29/24 10:52 Carbon Dioxide 25 mmol/L (22-29) 02/29/24 10:52 Anion Gap 17.2 (5-19) 02/29/24 10:52 BUN 13 mg/dL (6-20) 02/29/24 10:52 Creatinine 0.7 mg/dL (0.5-0.9) 02/29/24 10:52 GFR Calculation 97.0 mL/min (90-130) 02/29/24 10:52 Glucose 121 mg/dL (65-115) H 02/29/24 10:52 Calculated Osmolality 293 mOsm/kg (285-295) 02/29/24 10:52 Calcium 9.5 mg/dL (8.5-10.5) 02/29/24 10:52 Total Bilirubin 0.4 mg/dL (0.15-1.2) 02/29/24 10:52 AST 24 U/L (0-32) 02/29/24 10:52 ALT 39 U/L (0-33) H 02/29/24 10:52 Alkaline Phosphatase 143 U/L (35-105) H 02/29/24 10:52 Total Protein 7.7 g/dL (6.6-8.7) 02/29/24 10:52 Albumin 4.4 g/dL (3.5-5.2) 02/29/24 10:52 Globulin 3.3 g/dL (1.3-4.6) 02/29/24 10:52 Urine Color Yellow (Yellow) 02/29/24 10:55 Urine Appearance Clear (CLEAR) 02/29/24 10:55 Urine pH 8 (5-7) H 02/29/24 10:55 Ur Specific [place] 1.010 (1.005-1.030) 02/29/24 10:55 Urine Protein Neg (Negative) 02/29/24 10:55 Urine Glucose (UA) Norm (Normal) 02/29/24 10:55 Urine Ketones Negative (Negative) 02/29/24 10:55 Urine Blood Neg (Negative) 02/29/24 10:55 Urine Nitrate Negative (Negative) 02/29/24 10:55 Urine Bilirubin Neg (Negative) 02/29/24 10:55 Prot Sulfosalicylic Acd Negative (Negative) 02/29/24 10:55 Urine Urobilinogen Norm mg/dL (Negative) 02/29/24 10:55 Ur Leukocyte Esterase Trace (Negative) H 02/29/24 10:55 Urine RBC Rare /hpf (0-2) 02/29/24 10:55 Urine WBC 0-4 /hpf (0-5) H 02/29/24 10:55 Ur Squamous Epith Cells 0-4 /hpf (0-5) H 02/29/24 10:55 Amorphous Sediment Not Reportable 02/29/24 10:55 Urine Bacteria None /hpf (NONE) 02/29/24 10:55 All radiology interpretation(s) finalized by discharge Discharge Plan Discharge Patient Disposition: Home Clinical Impression: Constipation Condition: Stable Prescriptions: New sennosides-docusate sodium [Senna with Docusate Sodium] 8.6-50 mg tablet 1 tab-cap PO DAILY PRN (Reason: constipation) Qty: 14 0RF hydrocortisone acetate [Anusol-HC] 25 mg suppository 25 mg [place] DAILY PRN (Reason: itching) Qty: 12 0RF No Action omeprazole 40 mg capsule,delayed release(DR/EC) 40 mg PO BID 7 Days Qty: 14 0RF MaxFe (folate) 160 mg-1,700 mcg DFE-60 mcg tablet 1 tab PO DAILY risperidone 1 mg tablet 1 mg PO BID Qty: 60 2RF trazodone 100 mg tablet 200 mg PO QPM PRN (Reason: insomnia) Qty: 60 2RF sertraline [Zoloft] 50 mg tablet 50 mg PO DAILY Qty: 30 2RF prazosin 5 mg capsule 5 mg PO BEDTIME hydroxyzine HCl 50 mg tablet 50 mg PO QID PRN (Reason: Anxiety) olanzapine 5 mg Tablet,Disintegrating 5 mg PO TID PRN (Reason: AGGITATION OR ANXIETY) Discharge Orders: Discharge ED (Routine); Ordered 02/29/24 Ordered By: Mark Seo Referrals: Emory Fuentes MD [Primary Care Provider] - 4-7 days Discharge Activity: Resume usual activity Patient Instructions: Hemorrhoids, Constipation (ED) Activity Restrictions/Additional Instructions: It is recommended to increase amount of fruit or vegetables in your diet to reduce likelihood of getting constipation as well as developing hemorrhoids. Please for the follow-up primary care 3 to 5 days and was to return the interim if any of your symptoms persist or worse. Coding Level of Care Code ED Telephonic Nurse Case Manager for Serina Chandler
[2024-02-29 11:16] LABS: Basophils % 0.5 %; Eosinophils # 0.1 10^3/uL (0.0-0.8); Eosinophils % 0.8 %; Hematocrit 40.1 % (36-47); Lymphocytes % 23.4 %; Mean Corpuscular HGB Conc 33.7 g/dL (30-55); Mean Corpuscular Hemoglobin 30.3 pg (27-33); Mean Corpuscular Volume 90.1 fl (85-98); Mean Platelet Volume 9.3 fL (7.4-10.4); Monocytes # 0.6 10^3/uL (0.2-0.9); Monocytes % 6.8 %; Neutrophils # 5.72 10^3/uL (1.8-7.7); Neutrophils % 68.1 %; Nucleated Red Blood Cells % 0 %; Platelet Count 319 10^3/cmm (157-399); Red Blood Count 4.45 10^6/uL (3.85-5.65); Red Cell Distribution Width 13.2 % (12.1-15.1); White Blood Count 8.39 10^3/uL (3.29-11.43)
--- NOTE | 2024-02-29 11:18 | XRR_ITS ---
PROCEDURE INFORMATION: Exam: XR Abdomen Exam date and time: 02/29/2024 11:32 AM Age: 33 years old Clinical indication: Constipation; Abdominal pain; Generalized; Prior surgery; Surgery date: 6+ months; Surgery type: C section x 2 TECHNIQUE: Imaging protocol: Radiologic exam of the abdomen. Views: 2 Views. Upright and supine views. COMPARISON: CT kidney stone [id number] 11/03/2019 14:14 FINDINGS: Gastrointestinal tract: Normal. No bowel dilation. Intraperitoneal space: Normal. No free air. Bones/joints: Unremarkable for age. XR/XR acute abdomen series [id number] IMPRESSION: No acute findings.
[2024-02-29 11:23] LABS: Add Urine Microscopic? YES; Bilirubin Urine Neg (Negative); Blood Urine Neg (Negative); Glucose Urine UA Norm (Normal); Ketones Urine Negative (Negative); Leukocyte Esterase Urine Trace (Negative); Nitrate Urine Negative (Negative); Protein Urine Neg (Negative); RBC Urine RARE /hpf (0-2); Squamous Epithelial Cell Urine 0-4 /hpf (0-5); Sulfosalicylic Acid Urine Negative (Negative); Urine Appearance Clear (CLEAR); Urine Color Yellow (Yellow); Urobilinogen Urine Norm (Negative); pH Urine 8 (5-7)
[2024-02-29 11:24] LABS: WBC Urine 0-4 /hpf (0-5)
[2024-02-29 11:37] LABS: Alanine Aminotransferase 39 U/L (0-33); Albumin Level 4.4 g/dL (3.5-5.2); Alkaline Phosphatase 143 U/L (35-105); Anion Gap 17.2 (5-19); Aspartate Amino Transferase 24 U/L (0-32); Blood Urea Nitrogen 13 mg/dL (6-20); Calcium 9.5 mg/dL (8.5-10.5); Carbon Dioxide 25 mmol/L (22-29); Chloride 103 mmol/L (98-107); Creatinine Clr Calc Pharmacy 171.0212; Globulin 3.3 g/dL (1.3-4.6); Glucose 121 mg/dL (65-115); Osmolality Calculated 293 mOsm/kg (285-295); Potassium 4.2 mmol/L (3.5-5.1); Sodium 141 mmol/L (136-145); Total Bilirubin 0.4 mg/dL (0.15-1.2); Total Protein 7.7 g/dL (6.6-8.7)
== END 2024-02-29 13:27 | disposition home or self-care (01) ==
PROVIDERS: Family Medicine; Emergency Provider Emergency Medicine; PCP Family Medicine
DX: K59.00 Constipation, unspecified (principal)
CPT/HCPCS: 36415; 74022; 80053; 81001; 85025; 96374; 99284; J2405; J7030

== ENCOUNTER 2024-03-05 17:51 | Emergency (ER) | payer BC, MEDICAID, SELFPAY ==
[2023-10-18 16:27] VITALS: BP 124/77; BMI 44.3
--- NOTE | 2024-03-05 17:57 | ECG_ITS ---
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 Measurements Intervals [place] Rate: 83 P: 13 ME: 156 QRS: -15 QRSD: 99 T: 31 QT: 367 QTc: 433 Interpretive Statements SINUS RHYTHM LOW QRS VOLTAGE IN PRECORDIAL LEADS [QRS DEFLECTION < 1.0 mV IN CHEST LEADS] POSSIBLE ANTERIOR MYOCARDIAL INFARCTION , OF INDETERMINATE AGE [30 ms Q WAVE IN V3/V4, OR R < 0.2 mV IN V4] INTERPRETATION BASED ON A DEFAULT AGE OF 40 YEARS Compared to ECG 02/20/2024 12:32:15 No significant changes Electronically Signed On 03-08-2024 13:25:00 CDT by Erick Carlson M.D. [id number] f
[2024-03-05 18:02] VITALS: BP 156/106; PULSE 79; RESP 16; TEMP 36.8; O2SAT 98
[2024-03-05 18:16] VITALS: BP 116/54; PULSE 79; O2SAT 97
--- NOTE | 2024-03-05 18:17 | W.ED.GENADLT ---
HPI - General Adult General: Chief complaint: General Medical Stated complaint: high HR at home Time Seen by Provider: 03/05/24 17:57 Source: patient Mode of arrival: ambulatory Limitations: no limitations History of Present Illness: 33-year-old female well-known to ER states at home today she felt she had palpitations she took her heart rate states it was 150 and her blood pressure was in the 70s she states she is had some mild chest pain she denies any vomiting denies any fevers blood pressure or heart rate here are normal. Associated symptoms: Reports chest pain and palpitations; Deny dyspnea, headache(s), nausea, rash or vomiting Review of Systems Const: Denies: fever(s), chills, body aches or change in appetite ENMT: Denies: throat pain or dental pain Card: Reports: chest pain and palpitations Resp: Denies: dyspnea GI: Denies: abdominal pain, nausea, vomiting or diarrhea Musc: Denies: neck pain or back pain Skin/Breast: Denies: rash Neuro: Denies: headache(s) PFSH ED PFSH: Medical History Psychiatric care Nonspecific chest pain Intermittent palpitations delivery delivered Family History Grandmother Diabetes Hypertension Family/Other Cancer breast Social History Smoking and tobacco/nicotine status: never used tobacco/nicotine Second hand smoke exposure: No Alcohol intake: never Substance/Drug Use: never Adopted: No Caregiver/support person: No Lives independently: No Household members: family and children Housing: Manufactured/Mobile home Marital status: Legally Number of children: 3 Highest education level completed: High School Graduate service: No Current occupational status: disabled Current occupational exposures/hazards: No Pets and animals: No Leisure activites: music, games, reading and other Leisure activities details: social media, board games, watch tv, read the Bible Do you think of yourself as: Straight/Heterosexual Current gender identity: Female Martha/Spiritism: Pentecostalism Special martha needs: No Agree to transfusion: Yes Female Reproductive History: Para: 3 Spontaneous abortions: No Physical Exam Const: COMMON NORMALS: no acute distress, patient oriented x3 and healthy appearing HENMT: COMMON NORMALS: normocephalic and atraumatic HEAD & SCALP: normocephalic and atraumatic Eye: COMMON NORMALS: conjunctivae normal CONJUNCTIVA: Yes conjunctivae normal Neck/C-Spine: COMMON NORMALS: full ROM and supple Chest: COMMONS NORMALS: normal inspection of the chest Resp: COMMON NORMALS: normal respiratory effort Cardio: COMMON NORMALS: regular rate, regular rhythm and No murmurs present (Cardio) RATE: regular rate RHYTHM: regular rhythm Extremity: COMMON NORMALS: normal to inspection and full ROM Neuro: COMMON NORMALS: patient oriented x3, moves all extremities and no focal motor deficits Psych: COMMON NORMALS: mental status grossly normal, Normal thought process present and cooperative THOUGHT PROCESS: Normal thought process present Skin: COMMON NORMALS: no rashes or lesions noted and no wounds GENERAL SKIN EXAM: no rashes or lesions noted Course Vital Signs: Vital signs: Vital Signs Temperature 98.3 F 03/05/24 18:02 Pulse Rate 79 03/05/24 18:16 Respiratory Rate 16 03/05/24 18:02 Blood Pressure 116/54 03/05/24 18:16 Pulse Oximetry 97 03/05/24 18:16 Oxygen Delivery Me thod Room Air 03/05/24 18:16 MDM - General Adult Medical Decision Making Patient presents here with palpitations her vital signs here are normal EKG normal and her exam is normal she stable for discharge she is follow-up with PCP and return if worsening she understands agrees with plan. Medical Records I reviewed the patient's medical records. No radiology studies performed this visit EKG Data EKG 1: I personally reviewed and interpreted this EKG as follows: EKG interpretation date: 03/05/24 EKG interpretation time: 18:04 Interpretation: nsr hr [address] or t wave abnormalities qrs 99 qtc 407 Discharge Plan Discharge Patient Disposition: Home Clinical Impression: Palpitations Condition: Stable Prescriptions: No Action omeprazole 40 mg capsule,delayed release(DR/EC) 40 mg PO BID 7 Days Qty: 14 0RF MaxFe (folate) 160 mg-1,700 mcg DFE-60 mcg tablet 1 tab PO DAILY risperidone 1 mg tablet 1 mg PO BID Qty: 60 2RF trazodone 100 mg tablet 200 mg PO QPM PRN (Reason: insomnia) Qty: 60 2RF sertraline [Zoloft] 50 mg tablet 50 mg PO DAILY Qty: 30 2RF prazosin 5 mg capsule 5 mg PO BEDTIME hydroxyzine HCl 50 mg tablet 50 mg PO QID PRN (Reason: Anxiety) olanzapine 5 mg Tablet,Disintegrating 5 mg PO TID PRN (Reason: AGGITATION OR ANXIETY) Senna with Docusate Sodium 8.6-50 mg tablet 1 tab-cap PO DAILY PRN (Reason: constipation) Qty: 14 0RF Anusol-HC 25 mg suppository 25 mg [place] DAILY PRN (Reason: itching) Qty: 12 0RF Discharge Orders: Discharge ED (Routine); Ordered 03/05/24 Ordered By: Dequan Acuña Referrals: Emory Fuentes MD [Primary Care Provider] - 4-7 days Discharge Diet: Advance as tolerated Discharge Activity: Resume usual activity Patient Instructions: Heart Palpitations (ED) Coding Level of Care Code ED Communication Center Operator for Serina Chandler
[2024-03-05 18:22] VITALS: BP 116/54; PULSE 79; RESP 16; TEMP 36.8; O2SAT 97
== END 2024-03-05 18:32 | disposition home or self-care (01) ==
PROVIDERS: Emergency Provider Emergency Medicine; PCP Family Medicine
DX: R00.2 Palpitations (principal)
CPT/HCPCS: 93005; 99283

== ENCOUNTER 2024-03-11 14:14 | Emergency (ER) | payer BC, MEDICAID, SELFPAY ==
[2023-10-18 16:27] VITALS: BP 124/77; BMI 44.3
[2024-03-11 14:20] VITALS: BP 127/85; PULSE 87; TEMP 36.6; O2SAT 98; BMI 40.6
--- NOTE | 2024-03-11 14:21 | ECG_ITS ---
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 Measurements Intervals [place] Rate: 74 P: 26 [place]: 163 QRS: -7 QRSD: 96 T: 19 QT: 359 QTc: 400 Interpretive Statements SINUS RHYTHM WITH SINUS ARRHYTHMIA LOW QRS VOLTAGE IN PRECORDIAL LEADS [QRS DEFLECTION < 1.0 mV IN CHEST LEADS] POSSIBLE ANTERIOR MYOCARDIAL INFARCTION , PROBABLY OLD [30 ms Q WAVE IN V3/V4, OR R < 0.2 mV IN V4] Compared to ECG 03/05/2024 18:04:34 No significant changes Electronically Signed On 03-12-2024 23:41:40 CDT by Carlene Sheridan M.D. [email or web address] [email or web address] [email or web address], [email or web address].[employer]/store/[id number]
[2024-03-11 14:33] LABS: Basophils % 0.5 %; Eosinophils # 0.1 10^3/uL (0.0-0.8); Eosinophils % 1.7 %; Hematocrit 38.6 % (36-47); Lymphocytes # 2.7 10^3/uL (0.8-4.8); Lymphocytes % 32.3 %; Mean Corpuscular HGB Conc 33.7 g/dL (30-55); Mean Corpuscular Hemoglobin 30.1 pg (27-33); Mean Corpuscular Volume 89.4 fl (85-98); Mean Platelet Volume 9.1 fL (7.4-10.4); Monocytes # 0.7 10^3/uL (0.2-0.9); Monocytes % 7.7 %; Neutrophils # 4.87 10^3/uL (1.8-7.7); Neutrophils % 57.4 %; Nucleated Red Blood Cells % 0 %; Platelet Count 315 10^3/cmm (157-399); Red Blood Count 4.32 10^6/uL (3.85-5.65); Red Cell Distribution Width 13.4 % (12.1-15.1); White Blood Count 8.47 10^3/uL (3.29-11.43)
--- NOTE | 2024-03-11 14:45 | ED.C_ITS ---
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 Associated symptoms: Reports depression and suicidal ideation Review of Systems 2 Const: Denies: fever(s), chills, body aches or change in appetite ENMT: Denies: throat pain or dental pain Card: Denies: chest pain Resp: Denies: dyspnea GI: Denies: abdominal pain, nausea, vomiting or diarrhea : Denies: dysuria Musc: Denies: neck pain or back pain Skin/Breast: Denies: rash Neuro: Denies: headache(s) Psych: Reports: depression and suicidal ideation PFSH ED 2 PFSH: Medical History Psychiatric care Nonspecific chest pain Intermittent palpitations delivery delivered Family History Grandmother Diabetes Hypertension Family/Other Cancer breast Social History Smoking and tobacco/nicotine status: never used tobacco/nicotine Second hand smoke exposure: No Alcohol intake: never Substance/Drug Use: never Adopted: No Caregiver/support person: No Lives independently: No Household members: family and children Housing: Manufactured/Mobile home Marital status: Legally Number of children: 3 Highest education level completed: High School Graduate service: No Current occupational status: disabled Current occupational exposures/hazards: No Pets and animals: No Leisure activites: music, games, reading and other Leisure activities details: social media, board games, watch tv, read the Bible Do you think of yourself as: Straight/Heterosexual Current gender identity: Female Martha/Synagogue: Scientology Special martha needs: No Agree to transfusion: Yes Female Reproductive History: Para: 3 Spontaneous abortions: No Physical Exam 2 Const: COMMON NORMALS: no acute distress, patient oriented x3 and healthy appearing HENMT: COMMON NORMALS: normocephalic and atraumatic HEAD & SCALP: n ormocephalic and atraumatic Eye: COMMON NORMALS: Equal, round and reactive pupils present and EOMs intact bilaterally PUPIL: Yes Equal, round and reactive pupils present Neck/C-Spine: COMMON NORMALS: full ROM and supple Chest: COMMONS NORMALS: normal inspection of the chest Resp: COMMON NORMALS: normal respiratory effort Cardio: COMMON NORMALS: regular rate, regular rhythm and No murmurs present (Cardio) RATE: regular rate RHYTHM: regular rhythm Extremity: COMMON NORMALS: normal to inspection and full ROM Neuro: COMMON NORMALS: patient oriented x3, moves all extremities and no focal motor deficits Psych: COMMON NORMALS: mental status grossly normal, Normal thought process present and cooperative THOUGHT PROCESS: Normal thought process present Skin: COMMON NORMALS: no rashes or lesions noted and no wounds GENERAL SKIN EXAM: no rashes or lesions noted Course 2 Vital Signs: Vital signs: Vital Signs Temperature 98 F 03/11/24 14:20 Pulse Rate 87 03/11/24 14:20 Blood Pressure 127/85 03/11/24 14:20 Pulse Oximetry 98 03/11/24 14:20 Oxygen Delivery Me thod Room Air 03/11/24 14:20 MDM - Psych Medical Decision Making Patient presents here with anxiety chronic in nature patient's not suicidal or homicidal I did speak to Dr. Inman who reviewed his case patient is wanting go home she has no reasons to be under 96-hour hold she is not a threat to herself did give her crisis center information she is to follow-up there along with [facility] return if worsening she understands agrees to plan Medical Records I reviewed the patient's medical records. Lab Data I reviewed the patient's lab results. 03/11/24 14:27 03/11/24 14:27 Laboratory Results WBC 8.47 10^3/uL (3.29-11.43) 03/11/24 14:27 RBC 4.32 10^6/uL (3.85-5.65) 03/11/24 14:27 Hgb 13.00 g/dL (11.27-16.99) 03/11/24 14:27 Hct 38.6 % (36-47) 03/11/24 14:27 MCV 89.4 fl (85-98) 03/11/24 14:27 MCH 30.1 pg (27-33) 03/11/24 14:27 MCHC 33.7 g/dL (30-55) 03/11/24 14:27 RDW 13.4 % (12.1-15.1) 03/11/24 14:27 Plt Count 315 10^3/cmm (157-399) 03/11/24 14:27 MPV 9.1 fL (7.4-10.4) 03/11/24 14:27 Neut % (Auto) 57.4 % 03/11/24 14:27 Lymph % (Auto) 32.3 % 03/11/24 14:27 [place] % (Auto) 7.7 % 03/11/24 14:27 Eos % (Auto) 1.7 % 03/11/24 14:27 Baso % (Auto) 0.5 % 03/11/24 14: Neut # (Auto) 4.87 10^3/uL (1.8-7.7) 03/11/24 14:27 Lymph # (Auto) 2.7 10^3/uL (0.8-4.8) 03/11/24 14:27 [place] # (Auto) 0.7 10^3/uL (0.2-0.9) 03/11/24 14: Eos # (Auto) 0.1 10^3/uL (0.0-0.8) 03/11/24 14: Baso # (Auto) 0.0 10^3/uL (0.0-0.1) 03/11/24 14: Nucleated RBC % (auto) 0 % 03/11/24 14:27 Nucleated RBCs # 0.0 /100WBC 03/11/24 14:27 Sodium 141 mmol/L (136-145) 03/11/24 14:27 Potassium 4.0 mmol/L (3.5-5.1) 03/11/24 14:27 Chloride 103 mmol/L (98-107) 03/11/24 14:27 Carbon Dioxide 24 mmol/L (22-29) 03/11/24 14:27 Anion Gap 18.0 (5-19) 03/11/24 14:27 BUN 12 mg/dL (6-20) 03/11/24 14:27 Creatinine 0.7 mg/dL (0.5-0.9) 03/11/24 14:27 GFR Calculation 97.0 mL/min (90-130) 03/11/24 14:27 Glucose 95 mg/dL (65-115) 03/11/24 14:27 Calculated Osmolality 292 mOsm/kg (285-295) 03/11/24 14:27 Calcium 9.6 mg/dL (8.5-10.5) 03/11/24 14:27 Total Bilirubin 0.3 mg/dL (0.15-1.2) 03/11/24 14:27 AST 18 U/L (0-32) 03/11/24 14:27 ALT 32 U/L (0-33) 03/11/24 14: Alkaline Phosphatase 124 U/L (35-105) H 03/11/24 14:27 Total Protein 7.7 g/dL (6.6-8.7) 03/11/24 14: Albumin 4.5 g/dL (3.5-5.2) 03/11/24 14: Globulin 3.2 g/dL (1.3-4.6) 03/11/24 14:27 TSH 1.96 uIU/mL (0.27-4.20) 03/11/24 14:27 HCG, Qual Negative (Negative) 03/11/24 14:45 Urine Color Yellow (Yellow) 03/11/24 14:45 Urine Appearance Clear (CLEAR) 03/11/24 14:45 Urine pH 6 (5-7) 03/11/24 14:45 Ur Specific [place] 1.010 (1.005-1.030) 03/11/24 14:45 Urine Protein Neg (Negative) 03/11/24 14:45 Urine Glucose (UA) Norm (Normal) 03/11/24 14:45 Urine Ketones Negative (Negative) 03/11/24 14:45 Urine Blood 2+ (Negative) H 03/11/24 14:45 Urine Nitrate Negative (Negative) 03/11/24 14:45 Urine Bilirubin Neg (Negative) 03/11/24 14:45 Urine Urobilinogen Norm mg/dL (Negative) 03/11/24 14:45 Ur Leukocyte Esterase Negative (Negative) 03/11/24 14:45 Urine RBC 0-4 /hpf (0-2) H 03/11/24 14:45 Urine WBC 0-4 /hpf (0-5) H 03/11/24 14:45 Ur Squamous Epith Cells 0-4 /hpf (0-5) H 03/11/24 14:45 Amorphous Sediment Not Reportable 03/11/24 14:45 Urine Bacteria Trace /hpf (NONE) 03/11/24 14:45 Salicylates < 0.3 mg/dL (3-10) L 03/11/24 14:27 Urine Opiates Screen Negative ng/mL (Negative) 03/11/24 14:45 Acetaminophen < 5.0 ug/mL (10-30) L 03/11/24 14:27 Ur Barbiturates Screen Negative ng/mL (Negative) 03/11/24 14:45 Ur Phencyclidine Scrn Negative ng/mL (Negative) 03/11/24 14:45 Ur Amphetamines Screen Negative ng/mL (Negative) 03/11/24 14:45 U Benzodiazepines Scrn Negative ng/mL (Negative) 03/11/24 14:45 Urine Cocaine Screen Negative ng/mL (Negative) 03/11/24 14:45 U Marijuana (THC) Screen Negative ng/mL (Negative) 03/11/24 14:45 Ethyl Alcohol < 10 mg/dL (0-10) 03/11/24 14:27 No radiology studies performed this visit Discharge Plan Discharge Patient Disposition: Home Clinical Impression: Acute anxiety Condition: Stable Prescriptions: No Action omeprazole 40 mg capsule,delayed release(DR/EC) 40 mg PO BID 7 Days Qty: 14 0RF MaxFe (folate) 160 mg-1,700 mcg DFE-60 mcg tablet 1 tab PO DAILY risperidone 1 mg tablet 1 mg PO BID Qty: 60 2RF trazodone 100 mg tablet 200 mg PO QPM PRN (Reason: insomnia) Qty: 60 2RF sertraline [Zoloft] 50 mg tablet 50 mg PO DAILY Qty: 30 2RF prazosin 5 mg capsule 5 mg PO BEDTIME hydroxyzine HCl 50 mg tablet 50 mg PO QID PRN (Reason: Anxiety) olanzapine 5 mg Tablet,Disintegrating 5 mg PO TID PRN (Reason: AGGITATION OR ANXIETY) Senna with Docusate Sodium 8.6-50 mg tablet 1 tab-cap PO DAILY PRN (Reason: constipation) Qty: 14 0RF Anusol-HC 25 mg suppository 25 mg [place] DAILY PRN (Reason: itching) Qty: 12 0RF Discharge Orders: Discharge ED (Routine); Ordered 03/11/24 Ordered By: Dequan Acuña Referrals: Emory Fuentes MD [Primary Care Provider] - Discharge Diet: Advance as tolerated Discharge Activity: Resume usual activity Patient Instructions: Anxiety (ED) Coding Level of Care Code ED Director Medical Safety for Serina Chandler
[2024-03-11 15:02] LABS: Alanine Aminotransferase 32 U/L (0-33); Albumin Level 4.5 g/dL (3.5-5.2); Alkaline Phosphatase 124 U/L (35-105); Aspartate Amino Transferase 18 U/L (0-32); Blood Urea Nitrogen 12 mg/dL (6-20); Calcium 9.6 mg/dL (8.5-10.5); Carbon Dioxide 24 mmol/L (22-29); Chloride 103 mmol/L (98-107); Creatinine Clr Calc Pharmacy 118.4635; Globulin 3.2 g/dL (1.3-4.6); Glucose 95 mg/dL (65-115); Osmolality Calculated 292 mOsm/kg (285-295); Sodium 141 mmol/L (136-145); Thyroid Stimulating Hormone 1.96 uIU/mL (0.27-4.20); Total Bilirubin 0.3 mg/dL (0.15-1.2); Total Protein 7.7 g/dL (6.6-8.7)
[2024-03-11 15:08] LABS: Amphetamines Screen Urine Negative (Negative); Barbiturates Screen Urine Negative (Negative); Benzodiazepines Screen Urine Negative (Negative); Cocaine Screen Urine Negative (Negative); Opiate Screen Urine Negative (Negative); PCP Screen Urine Negative (Negative); THC Screen Urine Negative (Negative)
[2024-03-11 15:09] LABS: HCG Qualitative Urine. Negative (Negative)
[2024-03-11 15:13] LABS: Bilirubin Urine Neg (Negative); Blood Urine 2+ (Negative); Glucose Urine UA Norm (Normal); Ketones Urine Negative (Negative); Leukocyte Esterase Urine Negative (Negative); Nitrate Urine Negative (Negative); Protein Urine Neg (Negative); Urine Appearance Clear (CLEAR); Urine Color Yellow (Yellow); Urobilinogen Urine Norm (Negative); pH Urine 6 (5-7)
[2024-03-11 15:16] LABS: Acetaminophen < 5.0 ug/mL (10-30); Alcohol Level < 10 mg/dL (0-10); Salicylate < 0.3 mg/dL (3-10)
[2024-03-11 15:17] LABS: Add Urine Culture? No; Bacteria Urine TRACE /hpf; RBC Urine 0-4 /hpf (0-2); Squamous Epithelial Cell Urine 0-4 /hpf (0-5); WBC Urine 0-4 /hpf (0-5)
[2024-03-11] MEDS: acetaminophen 325 mg Tablet 650 MG PO (16:23)
[2024-03-11 19:12] VITALS: BP 127/85; PULSE 87; TEMP 36.6; O2SAT 98
== END 2024-03-11 19:13 | disposition home or self-care (01) ==
PROVIDERS: Emergency Medicine; Emergency Provider Emergency Medicine; PCP Family Medicine
DX: F41.9 Anxiety disorder, unspecified (principal)
CPT/HCPCS: 80053; 80306; 80307; 81001; 81025; 84443; 85025; 93005; 99284

== ENCOUNTER 2024-03-11 18:55 | Emergency (ER) | payer BC, MEDICAID, SELFPAY ==
[2023-10-18 16:27] VITALS: BP 124/77; BMI 44.3
[2024-03-11 19:02] VITALS: BP 125/84; PULSE 78; RESP 16; TEMP 36.7; O2SAT 97
--- NOTE | 2024-03-11 19:26 | ECG_ITS ---
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 Measurements Intervals [place] Rate: 68 P: 16 VT: 153 QRS: -5 QRSD: 104 T: 19 QT: 374 QTc: 400 Interpretive Statements SINUS RHYTHM POSSIBLE ANTERIOR MYOCARDIAL INFARCTION , OF INDETERMINATE AGE [30 ms Q WAVE IN V3/V4, OR R < 0.2 mV IN V4] Compared to ECG 03/11/2024 15:34:49 Sinus arrhythmia no longer present Myocardial infarct finding still present Electronically Signed On 03-12-2024 23:42:18 CDT by Carlene Sheridan M.D. [id number]
--- NOTE | 2024-03-11 20:10 | ED_ITS ---
HPI - General Adult General: Chief complaint: General Medical Stated complaint: Dizziness,feels like gonna pass out Time Seen by Provider: 03/11/24 19:33 Source: patient Mode of arrival: ambulatory Limitations: no limitations History of Present Illness: 33-year-old female is very well-known to the ER she was seen here earlier for anxiety states that while in the waiting room she had felt little lightheaded 1 to be rechecked. She denies any headache she denies chest pain denies any worsening improving factors she did not pass out Associated symptoms: Deny chest pain, dyspnea, headache(s), nausea, rash or vomiting Review of Systems Const: Denies: fever(s), chills, body aches or change in appetite Eyes: Denies: blurry vision or eye discomfort ENMT: Denies: throat pain or dental pain Card: Reports: pre-syncope; Denies: chest pain Resp: Denies: dyspnea GI: Denies: abdominal pain, nausea, vomiting or diarrhea Musc: Denies: neck pain or back pain Skin/Breast: Denies: rash Neuro: Denies: headache(s) PFSH ED PFSH: Medical History Psychiatric care Nonspecific chest pain Intermittent palpitations delivery delivered Family History Grandmother Diabetes Hypertension Family/Other Cancer breast Social History Smoking and tobacco/nicotine status: never used tobacco/nicotine Second hand smoke exposure: No Alcohol intake: never Substance/Drug Use: never Adopted: No Caregiver/support person: No Lives independently: No Household members: family and children Housing: Manufactured/Mobile home Marital status: Legally Number of children: 3 Highest education level completed: High School Graduate service: No Current occupational status: disabled Current occupational exposures/hazards: No Pets and animals: No Leisure activites: music, games, reading and other Leisure activities details: social media, board games, watch tv, read the Bible Do you think of yourself as: Straight/Heterosexual Current gender identity: Female Martha/Alevism: Tenriism Special martha needs: No Agree to transfusion: Yes Female Reproductive History: Para: 3 Spontaneous abortions: No Physical Exam Const: COMMON NORMALS: no acute distress, patient oriented x3 and healthy appearing HENMT: COMMON NORMALS: normocephalic and atraumatic HEAD & SCALP: normocephalic and atraumatic Eye: COMMON NORMALS: Equal, round and reactive pupils present and conjunctivae normal CONJUNCTIVA: Yes conjunctivae normal PUPIL: Yes Equal, round and reactive pupils present Neck/C-Spine: COMMON NORMALS: full ROM and supple Chest: COMMONS NORMALS: normal inspection of the chest Resp: COMMON NORMALS: normal respiratory effort, No retractions, No use of accessory muscles and clear to auscultation bilaterally AUSCULTATION: clear to auscultation bilaterally Cardio: COMMON NORMALS: regular rate, regular rhythm and No murmurs present (Cardio) RATE: regular rate RHYTHM: regular rhythm Extremity: COMMON NORMALS: normal to inspection and full ROM Neuro: COMMON NORMALS: patient oriented x3, moves all extremities and no focal motor deficits Psych: COMMON NORMALS: mental status grossly normal, Normal thought process present and cooperative THOUGHT PROCESS: Normal thought process present Skin: COMMON NORMALS: no rashes or lesions noted and no wounds GENERAL SKIN EXAM: no rashes or lesions noted Course 2 Vital Signs: Vital signs: Vital Signs Temperature 98.0 F 03/11/24 19:02 Pulse Rate 78 03/11/24 19:02 Respiratory Rate 16 03/11/24 19:02 Blood Pressure 125/84 03/11/24 19:02 Pulse Oximetry 97 03/11/24 19:02 Oxygen Delivery Me thod Room Air 03/11/24 19:02 MDM - General Adult Medical Decision Making Patient presents with lightheadedness blood work was checked earlier today is all normal no acute findings EKG here is normal vitals are normal she is well- appearing here and stable for discharge follow-up with PCP return if worsening. Medical Records I reviewed the patient's medical records. No radiology studies performed this visit EKG Data EKG 1: I personally reviewed and interpreted this EKG as follows: EKG interpretation date: 03/11/24 EKG interpretation time: 19:26 Interpretation: nsr hr [address] or t wave abnormalities qrs 104 qtc 392 Discharge Plan Discharge Patient Disposition: Home Clinical Impression: Near syncope Condition: Stable Prescriptions: No Action omeprazole 40 mg capsule,delayed release(DR/EC) 40 mg PO BID 7 Days Qty: 14 0RF MaxFe (folate) 160 mg-1,700 mcg DFE-60 mcg tablet 1 tab PO DAILY risperidone 1 mg tablet 1 mg PO BID Qty: 60 2RF trazodone 100 mg tablet 200 mg PO QPM PRN (Reason: insomnia) Qty: 60 2RF sertraline [Zoloft] 50 mg tablet 50 mg PO DAILY Qty: 30 2RF prazosin 5 mg capsule 5 mg PO BEDTIME hydroxyzine HCl 50 mg tablet 50 mg PO QID PRN (Reason: Anxiety) olanzapine 5 mg Tablet,Disintegrating 5 mg PO TID PRN (Reason: AGGITATION OR ANXIETY) Senna with Docusate Sodium 8.6-50 mg tablet 1 tab-cap PO DAILY PRN (Reason: constipation) Qty: 14 0RF Anusol-HC 25 mg suppository 25 mg [place] DAILY PRN (Reason: itching) Qty: 12 0RF Discharge Orders: Discharge ED (Routine); Ordered 03/11/24 Ordered By: Dequan Acuña Referrals: Emory Fuentes MD [Primary Care Provider] - 4-7 days Discharge Diet: Advance as tolerated Discharge Activity: Resume usual activity Patient Instructions: Near Syncope (ED) Coding Level of Care Code ED Cosmetics Supervisor for Serina Chandler
[2024-03-11 20:18] VITALS: BP 119/81; PULSE 71; RESP 15; TEMP 36.7; O2SAT 98
== END 2024-03-11 20:19 | disposition home or self-care (01) ==
PROVIDERS: Emergency Provider Emergency Medicine; PCP Family Medicine
DX: R55 Syncope and collapse (principal)
CPT/HCPCS: 93005; 99283

== ENCOUNTER 2024-04-08 18:31 | Emergency (ER) | payer BC, MEDICAID, SELFPAY ==
[2023-10-18 16:27] VITALS: BP 124/77; BMI 44.3
[2024-04-08 18:37] VITALS: BP 125/90; PULSE 96; TEMP 36.4; O2SAT 96; BMI 42.2
--- NOTE | 2024-04-08 18:37 | ECG_ITS ---
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 Measurements Intervals [place] Rate: 97 P: 17 [place]: 143 QRS: -14 QRSD: 94 T: 8 QT: 345 QTc: 440 Interpretive Statements SINUS RHYTHM LOW QRS VOLTAGE IN PRECORDIAL LEADS [QRS DEFLECTION < 1.0 mV IN CHEST LEADS] POSSIBLE ANTERIOR MYOCARDIAL INFARCTION , PROBABLY OLD [30 ms Q WAVE IN V3/V4, OR R < 0.2 mV IN V4] Compared to ECG 03/11/2024 19:26:28 Low QRS voltage now present Myocardial infarct finding still present Electronically Signed On 04-09-2024 8:29:20 CDT by Fab Stephens M.D. [id number]
--- NOTE | 2024-04-08 18:57 | XRR_ITS ---
PROCEDURE INFORMATION: Exam: XR Chest Exam date and time: 04/08/2024 7:21 PM Age: 33 years old Clinical indication: Pain; Chest pressure; Additional info: Cp TECHNIQUE: Imaging protocol: Radiologic exam of the chest. Views: 1 view. COMPARISON: CR XR chest 1V portable [id number] 02/20/2024 12:52 PM FINDINGS: Lungs: No focal consolidation. Minimal left basilar atelectasis. Pleural spaces: Unremarkable. No pleural effusion. No pneumothorax. Heart/Mediastinum: Unremarkable. No cardiomegaly. Bones/joints: Unremarkable. XR/XR chest 1V portable [id number] IMPRESSION: Minimal left basilar atelectasis. Otherwise, no acute findings.
[2024-04-08 19:17] LABS: Basophils # 0.1 10^3/uL (0.0-0.1); Basophils % 0.6 %; Eosinophils # 0.2 10^3/uL (0.0-0.8); Eosinophils % 2.1 %; Hematocrit 37.7 % (36-47); Lymphocytes # 3.4 10^3/uL (0.8-4.8); Lymphocytes % 35.1 %; Mean Corpuscular HGB Conc 33.4 g/dL (30-55); Mean Corpuscular Hemoglobin 30.3 pg (27-33); Mean Corpuscular Volume 90.6 fl (85-98); Mean Platelet Volume 8.8 fL (7.4-10.4); Monocytes # 0.8 10^3/uL (0.2-0.9); Monocytes % 8.2 %; Neutrophils # 5.13 10^3/uL (1.8-7.7); Neutrophils % 53.5 %; Nucleated Red Blood Cells % 0 %; Platelet Count 303 10^3/cmm (157-399); Red Blood Count 4.16 10^6/uL (3.85-5.65)
[2024-04-08 19:35] LABS: Troponin(5th) Baseline < 6 ng/L (0-10)
[2024-04-08 19:39] LABS: Alanine Aminotransferase 46 U/L (0-33); Albumin Level 4.5 g/dL (3.5-5.2); Alkaline Phosphatase 125 U/L (35-105); Anion Gap 15.8 (5-19); Aspartate Amino Transferase 27 U/L (0-32); Blood Urea Nitrogen 9 mg/dL (6-20); Calcium 9.2 mg/dL (8.5-10.5); Carbon Dioxide 25 mmol/L (22-29); Chloride 106 mmol/L (98-107); Creatinine Clr Calc Pharmacy 172.6733; Globulin 3.1 g/dL (1.3-4.6); Glucose 96 mg/dL (65-115); Osmolality Calculated 295 mOsm/kg (285-295); Potassium 3.8 mmol/L (3.5-5.1); Sodium 143 mmol/L (136-145); Total Bilirubin 0.2 mg/dL (0.15-1.2); Total Protein 7.6 g/dL (6.6-8.7)
[2024-04-08 20:29] VITALS: BP 133/99; PULSE 98; O2SAT 96
--- NOTE | 2024-04-08 21:10 | ED_ITS ---
HPI - Weakness 2 General: Chief complaint: Weakness Stated complaint: Chest pain, weakness Time Seen by Provider: 04/08/24 20:15 Source: patient Mode of arrival: ambulatory Limitations: no limitations History of Present Illness: 33-year-old female well-known to ER stat es that she had been spitting today and felt like her spit was a brown could have had blood in it she states that after that she started having chest pains and feeling like she was short of breath she has had some mild pains currently she had some generalized weakness as well. She denies any vomiting denies any cough denies any fevers. Associated symptoms: Reports chest pain; Denies chills, fever(s), headache(s), nausea or vomiting Review of Systems 2 Const: Denies: fever(s), chills, body aches or change in appetite ENMT: Denies: throat pain or dental pain Card: Reports: chest pain Resp: Reports: dyspnea GI: Denies: abdominal pain, nausea, vomiting or diarrhea Musc: Denies: neck pain or back pain Skin/Breast: Denies: rash Neuro: Denies: headache(s) PFSH ED 2 PFSH: Medical History Psychiatric care Nonspecific chest pain Intermittent palpitations delivery delivered Family History Grandmother Diabetes Hypertension Family/Other Cancer breast Social History Smoking and tobacco/nicotine status: never used tobacco/nicotine Second hand smoke exposure: No Alcohol intake: never Substance/Drug Use: never Adopted: No Caregiver/support person: No Lives independently: No Household members: family and children Housing: Manufactured/Mobile home Marital status: Legally Number of children: 3 Highest education level completed: High School Graduate service: No Current occupational status: disabled Current occupational exposures/hazards: No Pets and animals: No Leisure activites: music, games, reading and other Leisure activities details: social media, board games, watch tv, read the Bible Do you think of yourself as: Straight/Heterosexual Current gender identity: Female Martha/Restorationism: Christianity Special martha needs: No Agree to transfusion: Yes Female Reproductive History: Para: 3 Spontaneous abortions: No Physical Exam 2 Const: COMMON NORMALS: no acute distress, patient oriented x3 and healthy appearing HENMT: COMMON NORMALS: normocephalic and atraumatic HEAD & SCALP: n ormocephalic and atraumatic Neck/C-Spine: COMMON NORMALS: full ROM and supple Chest: COMMONS NORMALS: normal inspection of the chest Resp: COMMON NORMALS: normal respiratory effort, No retractions, No use of accessory muscles and clear to auscultation bilaterally AUSCULTATION: clear to auscultation bilaterally Cardio: COMMON NORMALS: regular rate, regular rhythm and No murmurs present (Cardio) RATE: regular rate RHYTHM: regular rhythm Extremity: COMMON NORMALS: normal to inspection and full ROM Neuro: COMMON NORMALS: patient oriented x3, moves all extremities and no focal motor deficits Psych: COMMON NORMALS: mental status grossly normal, Normal thought process present and cooperative THOUGHT PROCESS: Normal thought process present Skin: COMMON NORMALS: no rashes or lesions noted and no wounds GENERAL SKIN EXAM: no rashes or lesions noted Course 2 Vital Signs: Vital signs: Vital Signs Temperature 97.5 F L 04/08/24 18:37 Pulse Rate 96 04/08/24 18:37 Blood Pressure 125/90 04/08/24 18:37 Pulse Oximetry 96 04/08/24 18:37 Oxygen Delivery Me thod Room Air 04/08/24 18:37 MDM - Weakness Medical Decision Making Patient presents here with chest pain she is well-appearing here patient's imaging blood works normal she has no signs of ACS or pulm embolism she is stable for discharge she is follow-up with PCP and return if worsening she understands agrees to plan. Medical Records I reviewed the patient's medical records. Lab Data I reviewed the patient's lab results. 04/08/24 19:11 04/08/24 19:11 Radiology Impressions Chest X-Ray 04/08/24 18:57 IMPRESSION: Minimal left basilar atelectasis. Otherwise, no acute findings. Laboratory Results WBC 9.60 10^3/uL (3.29-11.43) 04/08/24 19:11 RBC 4.16 10^6/uL (3.85-5.65) 04/08/24 19:11 Hgb 12.60 g/dL (11.27-16.99) 04/08/24 19:11 Hct 37.7 % (36-47) 04/08/24 19:11 MCV 90.6 fl (85-98) 04/08/24 19:11 MCH 30.3 pg (27-33) 04/08/24 19:11 MCHC 33.4 g/dL (30-55) 04/08/24 19:11 RDW 14.0 % (12.1-15.1) 04/08/24 19:11 Plt Count 303 10^3/cmm (157-399) 04/08/24 19:11 MPV 8.8 fL (7.4-10.4) 04/08/24 19:11 Neut % (Auto) 53.5 % 04/08/24 19:11 Lymph % (Auto) 35.1 % 04/08/24 19:11 [place] % (Auto) 8.2 % 04/08/24 19:11 Eos % (Auto) 2.1 % 04/08/24 19:11 Baso % (Auto) 0.6 % 04/08/24 19:11 Neut # (Auto) 5.13 10^3/uL (1.8-7.7) 04/08/24 19:11 Lymph # (Auto) 3.4 10^3/uL (0.8-4.8) 04/08/24 19:11 [place] # (Auto) 0.8 10^3/uL (0.2-0.9) 04/08/24 19:11 Eos # (Auto) 0.2 10^3/uL (0.0-0.8) 04/08/24 19:11 Baso # (Auto) 0.1 10^3/uL (0.0-0.1) 04/08/24 19:11 Nucleated RBC % (auto) 0 % 04/08/24 19:11 Nucleated RBCs # 0.0 /100WBC 04/08/24 19:11 Sodium 143 mmol/L (136-145) 04/08/24 19:11 Potassium 3.8 mmol/L (3.5-5.1) 04/08/24 19:11 Chloride 106 mmol/L (98-107) 04/08/24 19:11 Carbon Dioxide 25 mmol/L (22-29) 04/08/24 19:11 Anion Gap 15.8 (5-19) 04/08/24 19:11 BUN 9 mg/dL (6-20) 04/08/24 19:11 Creatinine 0.7 mg/dL (0.5-0.9) 04/08/24 19:11 GFR Calculation 97.0 mL/min (90-130) 04/08/24 19:11 Glucose 96 mg/dL (65-115) 04/08/24 19:11 Calculated Osmolality 295 mOsm/kg (285-295) 04/08/24 19:11 Calcium 9.2 mg/dL (8.5-10.5) 04/08/24 19:11 Total Bilirubin 0.2 mg/dL (0.15-1.2) 04/08/24 19:11 AST 27 U/L (0-32) 04/08/24 19:11 ALT 46 U/L (0-33) H 04/08/24 19:11 Alkaline Phosphatase 125 U/L (35-105) H 04/08/24 19:11 Troponin T Baseline < 6 ng/L (0-10) 04/08/24 19:11 Total Protein 7.6 g/dL (6.6-8.7) 04/08/24 19:11 Albumin 4.5 g/dL (3.5-5.2) 04/08/24 19:11 Globulin 3.1 g/dL (1.3-4.6) 04/08/24 19:11 All radiology interpretation(s) finalized by discharge Discharge Plan Discharge Patient Disposition: Home Clinical Impression: Chest pain Condition: Stable Prescriptions: No Action omeprazole 40 mg capsule,delayed release(DR/EC) 40 mg PO BID 7 Days Qty: 14 0RF MaxFe (folate) 160 mg-1,700 mcg DFE-60 mcg tablet 1 tab PO DAILY risperidone 1 mg tablet 1 mg PO BID Qty: 60 2RF trazodone 100 mg tablet 200 mg PO QPM PRN (Reason: insomnia) Qty: 60 2RF sertraline [Zoloft] 100 mg tablet 100 mg PO DAILY Qty: 30 0RF sertraline [Zoloft] 100 mg tablet 200 mg PO DAILY Qty: 60 11RF Rx Instructions: Start after 1 month on 100 mg. prazosin 5 mg capsule 5 mg PO BEDTIME hydroxyzine HCl 50 mg tablet 50 mg PO QID PRN (Reason: Anxiety) olanzapine 5 mg Tablet,Disintegrating 5 mg PO TID PRN (Reason: AGGITATION OR ANXIETY) Senna with Docusate Sodium 8.6-50 mg tablet 1 tab-cap PO DAILY PRN (Reason: constipation) Qty: 14 0RF Anusol-HC 25 mg suppository 25 mg [place] DAILY PRN (Reason: itching) Qty: 12 0RF Discharge Orders: Discharge ED (Routine); Ordered 04/08/24 Ordered By: Dequan Acuña Referrals: Emory Fuentes MD [Primary Care Provider] - Discharge Diet: Advance as tolerated Discharge Activity: Resume usual activity Patient Instructions: Chest Pain (ED) Coding Level of Care Code ED Retail Pricing Coordinator for Serina Chandler
[2024-04-08 21:15] VITALS: BP 125/80; PULSE 76; O2SAT 95
[2024-04-08 21:30] VITALS: BP 119/89; PULSE 93; O2SAT 97
[2024-04-08 21:34] LABS: Troponin 5 2HR Delta 0.00001 ABS# (0-10)
== END 2024-04-08 21:48 | disposition home or self-care (01) ==
PROVIDERS: Emergency Provider Emergency Medicine; PCP Family Medicine
DX: R07.9 Chest pain, unspecified (principal)
CPT/HCPCS: 36415; 71045; 80053; 84484; 85025; 93005; 99285

== ENCOUNTER 2024-05-09 01:49 | Emergency (ER) | payer BC, MEDICAID, SELFPAY ==
[2023-10-18 16:27] VITALS: BP 124/77; BMI 44.3
[2024-05-09 01:48] VITALS: BP 127/76; PULSE 92; RESP 16; TEMP 36.8; O2SAT 97; BMI 42.0
--- NOTE | 2024-05-09 01:49 | XRR_ITS ---
PROCEDURE INFORMATION: Exam: XR Chest Exam date and time: 05/09/2024 1:59 AM Age: 33 years old Clinical indication: Pain; Shortness of breath; Chest pressure; Additional info: Chest pain TECHNIQUE: Imaging protocol: Radiologic exam of the chest. Views: 1 view. COMPARISON: CR XR chest 2V* [id number] 04/22/2024 9:52 AM FINDINGS: Tubes, catheters and devices: A couple monitor leads project over the chest. Lungs: Low lung volumes with minimal lingular atelectasis or scarring. Pleural spaces: No significant costophrenic angle blunting. No pneumothorax. Heart/Mediastinum: Heart size is normal. Bones/joints: No acute osseous abnormality. Soft tissues: Large body habitus. XR/XR chest 1V portable [id number] IMPRESSION: Low lung volumes with minimal lingular atelectasis or scarring.
--- NOTE | 2024-05-09 01:54 | ECG_ITS ---
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 Measurements Intervals [place] Rate: 84 P: 17 NC: 146 QRS: -6 QRSD: 88 T: -11 QT: 373 QTc: 443 Interpretive Statements SINUS RHYTHM LOW QRS VOLTAGE IN PRECORDIAL LEADS [QRS DEFLECTION < 1.0 mV IN CHEST LEADS] POSSIBLE ANTERIOR MYOCARDIAL INFARCTION , OF INDETERMINATE AGE [30 ms Q WAVE IN V3/V4, OR R < 0.2 mV IN V4] Compared to ECG 04/08/2024 18:37:10 No significant changes Electronically Signed On 05-09-2024 8:04:13 CDT by Fab Stephens M.D. [id number]
[2024-05-09 01:57] LABS: Basophils # 0.1 10^3/uL (0.0-0.1); Basophils % 0.6 %; Eosinophils # 0.2 10^3/uL (0.0-0.8); Eosinophils % 1.8 %; Hematocrit 42.9 % (36-47); Lymphocytes # 3.2 10^3/uL (0.8-4.8); Lymphocytes % 33.3 %; Mean Corpuscular HGB Conc 32.9 g/dL (30-55); Mean Corpuscular Hemoglobin 30.2 pg (27-33); Mean Corpuscular Volume 91.9 fl (85-98); Mean Platelet Volume 8.7 fL (7.4-10.4); Monocytes # 0.6 10^3/uL (0.2-0.9); Neutrophils # 5.61 10^3/uL (1.8-7.7); Neutrophils % 57.9 %; Nucleated Red Blood Cells % 0 %; Platelet Count 343 10^3/cmm (157-399); Red Blood Count 4.67 10^6/uL (3.85-5.65); Red Cell Distribution Width 13.2 % (12.1-15.1); White Blood Count 9.69 10^3/uL (3.29-11.43)
--- NOTE | 2024-05-09 02:05 | ED_ITS ---
HPI - Chest Pain 2 General: Chief Complaint: Chest Pain Stated Complaint: cp History of Present Illness: Patient presents to the ER from home by self how can ambulance with reported chest pain that started 6 days ago. She has had a lot of stress in her life due to the recent of a family member. Patient been seen here multiple times for the similar instances and been seen by cardiology. EMS did give her nitro x 2 and 3 and 24 mg aspirin en route. Related Data Home Medications Medication Instructions Recorded Confirmed iron 160 mg-folate 1,700 mcg 1 tab PO DAILY 10/06/22 03/20/24 DFE-B12 60 mcg-vit Q-zutnrd-hoqi tablet (MaxFe (folate)) prazosin 5 mg capsule 5 mg PO BEDTIME 02/20/24 03/20/24 hydroxyzine HCl 50 mg tablet 50 mg PO QID PRN Anxiety 02/29/24 03/20/24 olanzapine 5 mg disintegrating 5 mg PO TID PRN AGGITATION OR 02/29/24 03/20/24 tablet ANXIETY Previous Rx's Medication Instructions Recorded omeprazole 40 mg capsule,delayed 40 mg PO BID 7 days #14 caps 07/29/23 release risperidone 1 mg tablet 1 mg PO BID #60 tabs 02/05/24 trazodone 100 mg tablet 200 mg (2 x 100 mg) PO QPM PRN 02/05/24 insomnia #60 tabs hydrocortisone acetate 25 mg 25 mg [place] DAILY PRN itching #12 ea 02/29/24 rectal suppository (Anusol-HC) sennosides 8.6 mg-docusate sodium 1 tab-cap PO DAILY PRN 02/29/24 50 mg tablet (Senna with Docusate constipation #14 tabs Sodium) sertraline 100 mg tablet (Zoloft) 100 mg PO DAILY #30 tabs 03/20/24 sertraline 100 mg tablet (Zoloft) 200 mg (2 x 100 mg) PO DAILY #60 03/20/24 tabs Allergies Allergy/AdvReac Type Severity Reaction Status Date / Time morphine Allergy Severe ALGY-Difficulty Verified 03/20/24 10:59 Swallowing Anesthetics - Amide Type - Allergy Intermediate ADR-Nausea Verified 03/20/24 10:59 Select A Anesthetics - Yoanna Type- Allergy Intermediate ADR-Nausea Verified 03/20/24 10:59 Parabens Review of Systems 2 General: Reports: 10 or more systems reviewed and unremarkable except in HPI and below PFSH ED 2 PFSH: Medical History Psychiatric care Nonspecific chest pain Intermittent palpitations delivery delivered Family History Grandmother Diabetes Hypertension Family/Other Cancer breast Social History Smoking and tobacco/nicotine status: never used tobacco/nicotine Second hand smoke exposure: No Alcohol intake: never Substance/Drug Use: never Adopted: No Caregiver/support person: No Lives independently: No Household members: family and children Housing: Manufactured/Mobile home Marital status: Legally Number of children: 3 Highest education level completed: High School Graduate service: No Current occupational status: disabled Current occupational exposures/hazards: No Pets and animals: No Leisure activites: music, games, reading and other Leisure activities details: social media, board games, watch tv, read the Bible Do you think of yourself as: Straight/Heterosexual Current gender identity: Female Martha/Uatsdin: Congregation Special martha needs: No Agree to transfusion: Yes Female Reproductive History: Para: 3 Spontaneous abortions: No Physical Exam 2 Const: COMMON NORMALS: no acute distress, average body habitus, patient oriented x3, no limitations, healthy appearing, alert and well nourished HENMT: COMMON NORMALS: normocephalic, atraumatic, hearing grossly normal bilaterally, external ears normal, Normal external nose present and moist oral mucous membranes HEAD & SCALP: normocephalic and atraumatic NOSE: Normal external nose present EXTERNAL EAR: Yes external ears normal Neck/C-Spine: COMMON NORMALS: no JVD Chest: COMMONS NORMALS: normal inspection of the chest and normal palpation of entire chest wall Resp: COMMON NORMALS: normal respiratory effort, No retractions, No use of accessory muscles and clear to auscultation bilaterally AUSCULTATION: clear to auscultation bilaterally Cardio: COMMON NORMALS: no JVD, regular rate, regular rhythm, S1 normal heart sound present, S2 normal heart sound present, No gallops present (Cardio), No clicks present (Cardio), No murmurs present (Cardio) and No rub (Cardio) R ATE: regular rate RHYTHM: regular rhythm HEART SOUNDS: S1 normal heart sound present and S2 normal heart sound present Neuro: COMMON NORMALS: patient oriented x3 SENSORIUM/ORIENTATION: Yes alert Course 2 Vital Signs: Vital signs: Vital Signs Temperature 98.2 F 05/09/24 01:48 Pulse Rate 92 05/09/24 01:48 Respiratory Rate 16 05/09/24 01:48 Blood Pressure 127/76 05/09/24 01:48 Pulse Oximetry 97 05/09/24 01:48 Oxygen Delivery Me thod Room Air 05/09/24 01:48 MDM - Chest Pain Medical Decision Making Patient. Nontoxic in no acute distress, lab work was obtained as well as an EKG and chest x-ray, all these was essentially unremarkable. Patient be discharged home and is to follow-up with her PCP. Differential Diagnosis Unlikely acute massive pulmonary embolism, acute respiratory failure, acute myocardial infarction, cardiac arrest or sudden cardiac Medical Records I reviewed the patient's medical records. Lab Data I reviewed the patient's lab results. 05/09/24 01:39 05/09/24 01:39 Laboratory Results WBC 9.69 10^3/uL (3.29-11.43) 05/09/24 01:39 RBC 4.67 10^6/uL (3.85-5.65) 05/09/24 01:39 Hgb 14.10 g/dL (11.27-16.99) 05/09/24 01:39 Hct 42.9 % (36-47) 05/09/24 01:39 MCV 91.9 fl (85-98) 05/09/24 01:39 MCH 30.2 pg (27-33) 05/09/24 01:39 MCHC 32.9 g/dL (30-55) 05/09/24 01:39 RDW 13.2 % (12.1-15.1) 05/09/24 01:39 Plt Count 343 10^3/cmm (157-399) 05/09/24 01:39 MPV 8.7 fL (7.4-10.4) 05/09/24 01:39 Neut % (Auto) 57.9 % 05/09/24 01:39 Lymph % (Auto) 33.3 % 05/09/24 01:39 Preston % (Auto) 6.0 % 05/09/24 01:39 Eos % (Auto) 1.8 % 05/09/24 01:39 Baso % (Auto) 0.6 % 05/09/24 01:39 Neut # (Auto) 5.61 10^3/uL (1.8-7.7) 05/09/24 01:39 Lymph # (Auto) 3.2 10^3/uL (0.8-4.8) 05/09/24 01:39 Preston # (Auto) 0.6 10^3/uL (0.2-0.9) 05/09/24 01:39 Eos # (Auto) 0.2 10^3/uL (0.0-0.8) 05/09/24 01:39 Baso # (Auto) 0.1 10^3/uL (0.0-0.1) 05/09/24 01:39 Nucleated RBC % (auto) 0 % 05/09/24 01:39 Nucleated RBCs # 0.0 /100WBC 05/09/24 01:39 Sodium 141 mmol/L (136-145) 05/09/24 01:39 Potassium 3.4 mmol/L (3.5-5.1) L 05/09/24 01:39 Chloride 103 mmol/L (98-107) 05/09/24 01:39 Carbon Dioxide 23 mmol/L (22-29) 05/09/24 01:39 Anion Gap 18.4 (5-19) 05/09/24 01:39 BUN 10 mg/dL (6-20) 05/09/24 01:39 Creatinine 0.8 mg/dL (0.5-0.9) 05/09/24 01:39 GFR Calculation 83.1 mL/min (90-130) L 05/09/24 01:39 Glucose 128 mg/dL (65-115) H 05/09/24 01:39 Calculated Osmolality 293 mOsm/kg (285-295) 05/09/24 01:39 Calcium 9.3 mg/dL (8.5-10.5) 05/09/24 01:39 Total Bilirubin 0.4 mg/dL (0.15-1.2) 05/09/24 01:39 AST 30 U/L (0-32) 05/09/24 01:39 ALT 45 U/L (0-33) H 05/09/24 01:39 Alkaline Phosphatase 146 U/L (35-105) H 05/09/24 01:39 Troponin T Baseline < 6 ng/L (0-10) 05/09/24 01:39 Total Protein 8.5 g/dL (6.6-8.7) 05/09/24 01:39 Albumin 4.8 g/dL (3.5-5.2) 05/09/24 01:39 Globulin 3.7 g/dL (1.3-4.6) 05/09/24 01:39 All radiology interpretation(s) finalized by discharge Discharge Plan Discharge Patient Disposition: Home Clinical Impression: Chest pain Qualifiers: Chest pain type: unspecified Qualified Code(s): R07.9 - Chest pain, unspecified Condition: Stable Prescriptions: No Action omeprazole 40 mg capsule,delayed release(DR/EC) 40 mg PO BID 7 Days Qty: 14 0RF MaxFe (folate) 160 mg-1,700 mcg DFE-60 mcg tablet 1 tab PO DAILY risperidone 1 mg tablet 1 mg PO BID Qty: 60 2RF trazodone 100 mg tablet 200 mg PO QPM PRN (Reason: insomnia) Qty: 60 2RF sertraline [Zoloft] 100 mg tablet 100 mg PO DAILY Qty: 30 0RF sertraline [Zoloft] 100 mg tablet 200 mg PO DAILY Qty: 60 11RF Rx Instructions: Start after 1 month on 100 mg. prazosin 5 mg capsule 5 mg PO BEDTIME hydroxyzine HCl 50 mg tablet 50 mg PO QID PRN (Reason: Anxiety) olanzapine 5 mg Tablet,Disintegrating 5 mg PO TID PRN (Reason: AGGITATION OR ANXIETY) Senna with Docusate Sodium 8.6-50 mg tablet 1 tab-cap PO DAILY PRN (Reason: constipation) Qty: 14 0RF Anusol-HC 25 mg suppository 25 mg DE DAILY PRN (Reason: itching) Qty: 12 0RF Discharge Orders: Discharge ED (Routine); Ordered 05/09/24 Ordered By: Medardo Xiong Referrals: Emory Fuentes MD [Primary Care Provider] - 1 week Patient Instructions: Chest Pain (DC) Activity Restrictions/Additional Instructions: Your evaluation ER did not show any cardiac cause for your chest pain. Your chest pain is felt to be noncardiac in nature may be due to your anxiety or stress. Please follow-up with your family practice physician within the next 7 days for further evaluation and treatment. Coding Level of Care Code ED Civil Preparedness Training Officer for Serina Chandler
[2024-05-09 02:17] LABS: Troponin(5th) Baseline < 6 ng/L (0-10)
[2024-05-09 02:26] LABS: Alanine Aminotransferase 45 U/L (0-33); Albumin Level 4.8 g/dL (3.5-5.2); Alkaline Phosphatase 146 U/L (35-105); Anion Gap 18.4 (5-19); Aspartate Amino Transferase 30 U/L (0-32); Blood Urea Nitrogen 10 mg/dL (6-20); Calcium 9.3 mg/dL (8.5-10.5); Carbon Dioxide 23 mmol/L (22-29); Chloride 103 mmol/L (98-107); Creatinine Clr Calc Pharmacy 150.3655; Globulin 3.7 g/dL (1.3-4.6); Glomerular Filtration Rate 83.1 mL/min (90-130); Glucose 128 mg/dL (65-115); Osmolality Calculated 293 mOsm/kg (285-295); Potassium 3.4 mmol/L (3.5-5.1); Sodium 141 mmol/L (136-145); Total Bilirubin 0.4 mg/dL (0.15-1.2); Total Protein 8.5 g/dL (6.6-8.7)
[2024-05-09 02:46] VITALS: BP 142/88; PULSE 91; RESP 16; O2SAT 98
== END 2024-05-09 03:09 | disposition home or self-care (01) ==
PROVIDERS: Emergency Provider Emergency Medicine; PCP Family Medicine
DX: R07.9 Chest pain, unspecified (principal)
CPT/HCPCS: 71045; 80053; 84484; 85025; 93005; 99285

== ENCOUNTER 2024-05-09 10:47 | Emergency (ER) | payer BC, MEDICAID, SELFPAY ==
[2023-10-18 16:27] VITALS: BP 124/77; BMI 44.3
[2024-05-09 10:57] VITALS: BP 119/83; PULSE 70; RESP 20; TEMP 37.1; O2SAT 96; BMI 42.0
--- NOTE | 2024-05-09 11:15 | ED.C_ITS ---
HPI - Psych General: Chief Complaint: Psychiatric Symptoms Stated Complaint: MHE Time Seen by Provider: 05/09/24 11:02 History of Present Illness: 33-year-old female who presents to the e mergency room with depressive symptoms. She also has continued chest pain. She was seen here earlier today with chest pain and was ruled out for emergent sources of the chest pain and discharged. Apparently she has been out in the waiting room all morning and has been yelling etc. she then checked back into the emergency room with continued chest pain and primarily for evaluation for admission to the psychiatric unit. She says her family feels she needs to come into the hospital so that she can escape the pressures of daily life. She says she is not feeling suicidal or homicidal but just feels like she wishes she could just not continue living. Continues to deny actual homicidal or suicidal ideations. Related Data Home Medications Medication Instructions Recorded Confirmed iron 160 mg-folate 1,700 mcg 1 tab PO DAILY 10/06/22 03/20/24 DFE-B12 60 mcg-vit X-ubcexl-vner tablet (MaxFe (folate)) prazosin 5 mg capsule 5 mg PO BEDTIME 02/20/24 03/20/24 hydroxyzine HCl 50 mg tablet 50 mg PO QID PRN Anxiety 02/29/24 03/20/24 olanzapine 5 mg disintegrating 5 mg PO TID PRN AGGITATION OR 02/29/24 03/20/24 tablet ANXIETY Previous Rx's Medication Instructions Recorded omeprazole 40 mg capsule,delayed 40 mg PO BID 7 days #14 caps 07/29/23 release risperidone 1 mg tablet 1 mg PO BID #60 tabs 02/05/24 trazodone 100 mg tablet 200 mg (2 x 100 mg) PO QPM PRN 02/05/24 insomnia #60 tabs hydrocortisone acetate [address] DAILY PRN itching #12 ea 02/29/24 rectal suppository (Anusol-HC) sennosides 8.6 mg-docusate sodium 1 tab-cap PO DAILY PRN 02/29/24 50 mg tablet (Senna with Docusate constipation #14 tabs Sodium) sertraline 100 mg tablet (Zoloft) 100 mg PO DAILY #30 tabs 03/20/24 sertraline 100 mg tablet (Zoloft) 200 mg (2 x 100 mg) PO DAILY #60 03/20/24 tabs Allergies Allergy/AdvReac Type Severity Reaction Status Date / Time morphine Allergy Severe ALGY-Difficulty Verified 05/09/24 11:12 Swallowing Anesthetics - Amide Type - Allergy Intermediate ADR-Nausea Verified 05/09/24 11:12 Select A Anesthetics - Yoanna Type- Allergy Intermediate ADR-Nausea Verified 05/09/24 11:12 Parabens COVID-19 (SARS-CoV-2) Allergy Unknown Verified 05/09/24 11:12 vaccine, kayleen Review of Systems Narrative: Constitutional symptoms: Negative except as documented in HPI. Skin symptoms: Negative except as documented in HPI. Eye symptoms: Negative except as documented in HPI. ENMT symptoms: Negative except as documented in HPI. Respiratory symptoms: Negative except as documented in HPI. Cardiovascular symptoms: Negative except as documented in HPI. Gastrointestinal symptoms: Negative except as documented in HPI. Genitourinary symptoms: Negative except as documented in HPI. Musculoskeletal symptoms: Negative except as documented in HPI. Neurologic symptoms: Negative except as documented in HPI. Psychiatric symptoms: Negative except as documented in HPI. Endocrine symptoms: Negative except as documented in HPI. PFSH ED PFSH: Medical History Psychiatric care Nonspecific chest pain Intermittent palpitations delivery delivered Family History Grandmother Diabetes Hypertension Family/Other Cancer breast Social History Smoking and tobacco/nicotine status: never used tobacco/nicotine Second hand smoke exposure: No Alcohol intake: never Substance/Drug Use: never Adopted: No Caregiver/support person: No Lives independently: No Household members: family and children Housing: Manufactured/Mobile home Marital status: Legally Number of children: 3 Highest education level completed: High School Graduate service: No Current occupational status: disabled Current occupational exposures/hazards: No Pets and animals: No Leisure activites: music, games, reading and other Leisure activities details: social media, board games, watch tv, read the Bible Do you think of yourself as: Straight/Heterosexual Current gender identity: Female Martha/Jainism: Confucianist Special martha needs: No Agree to transfusion: Yes Female Reproductive History: Para: 3 Spontaneous abortions: No Physical Exam Narrative: EXAM NARRATIVE: General: Alert, no acute distress. Skin: Warm, dry. Head: Normocephalic, atraumatic. Neck: Supple, trachea midline. Eye: Extraocular movements are intact. Ears, nose, mouth and throat: mucosa moist. Cardiovascular: Regular, Normal peripheral perfusion. Respiratory: Lungs are clear to auscultation, respirations are non-labored, breath sounds are equal, Symmetrical chest wall expansion. Gastrointestinal: Soft, Nontender, Non distended Musculoskeletal: Normal ROM, no deformity. Neurological: Alert and oriented, No focal neurological deficit observed. Psychiatric: Cooperative, depressed Course Vital Signs: Vital signs: Vital Signs Temperature 98.8 F 05/09/24 10:57 Pulse Rate 70 05/09/24 10:57 Respiratory Rate 20 H 05/09/24 10:57 Blood Pressure 119/83 05/09/24 10:57 Pulse Oximetry 96 05/09/24 10:57 Oxygen Delivery Me thod Room Air 05/09/24 10:57 MDM - Psych Medical Decision Making Consultation: I spoke with Dr. Inman who is on-call for psychiatry. He recommends that the patient go straight to the crisis unit to be evaluated by therapist there and they can determine if she needs admission or if they can help her through this crisis and get her back home. I agree with this plan and I have discussed it with Kathi who agrees as well. Assessment and plan: Depression Anxiety - Discharged and escorted to the crisis unit by security - Discussed plan with patient. Answered any questions. - Evaluation and treatment of this problem were appropriate in the emergency setting. No radiology studies performed this visit Discharge Plan Discharge Patient Disposition: Home Clinical Impression: Depression, Acute anxiety Condition: Stable Prescriptions: No Action omeprazole 40 mg capsule,delayed release(DR/EC) 40 mg PO BID 7 Days Qty: 14 0RF MaxFe (folate) 160 mg-1,700 mcg DFE-60 mcg tablet 1 tab PO DAILY risperidone 1 mg tablet 1 mg PO BID Qty: 60 2RF trazodone 100 mg tablet 200 mg PO QPM PRN (Reason: insomnia) Qty: 60 2RF sertraline [Zoloft] 100 mg tablet 100 mg PO DAILY Qty: 30 0RF sertraline [Zoloft] 100 mg tablet 200 mg PO DAILY Qty: 60 11RF Rx Instructions: Start after 1 month on 100 mg. prazosin 5 mg capsule 5 mg PO BEDTIME hydroxyzine HCl 50 mg tablet 50 mg PO QID PRN (Reason: Anxiety) olanzapine 5 mg Tablet,Disintegrating 5 mg PO TID PRN (Reason: AGGITATION OR ANXIETY) Senna with Docusate Sodium 8.6-50 mg tablet 1 tab-cap PO DAILY PRN (Reason: constipation) Qty: 14 0RF Anusol-HC 25 mg suppository [address] DAILY PRN (Reason: itching) Qty: 12 0RF Discharge Orders: Discharge ED (Routine); Ordered 05/09/24 Ordered By: Julia Beth Referrals: Emory Fuentes MD [Primary Care Provider] - Discharge Diet: Usual diet Discharge Activity: Resume usual activity Patient Instructions: Depression Activity Restrictions/Additional Instructions: If you develop suicidal thoughts, or thoughts of harming yourself, or thoughts of harming others please seek medical attention immediately. Thank you for choosing [facility] for your healthcare needs today. Please realize this is an emergency room and that we are providing you with a medical screening exam and this may not be complete and all inclusive of all the testing and or work up that you may need to determine your ailment or severity of your illness. You have been screened and evaluated and felt safe for discharge. Health conditions do change or evolve sometimes and as such it is important that you follow up with your Primary Doctor to be re checked, 3-5 days is a general good time frame for follow up. You are always welcome to return to the ED for re assessment if your symptoms are worsening or you have new concerns Coding Level of Care Code ED Testing Shaking Shipping for Serina Chandler
[2024-05-09 11:31] VITALS: BP 123/84; PULSE 77; RESP 20; TEMP 37.1; O2SAT 96
== END 2024-05-09 11:21 | disposition home or self-care (01) ==
PROVIDERS: Emergency Provider Emergency Medicine; PCP Family Medicine
DX: F41.9 Anxiety disorder, unspecified (principal); F32.A Depression, unspecified
CPT/HCPCS: 99281

== ENCOUNTER 2024-05-10 09:02 | Emergency (ER) | payer BC, MEDICAID, SELFPAY ==
[2023-10-18 16:27] VITALS: BP 124/77; BMI 44.3
--- NOTE | 2024-05-10 09:05 | W.ED.CHESTPA ---
HPI - Chest Pain General: Stated Complaint: CHEST PAIN Time Seen by Provider: 05/10/24 09:05 Related Data Home Medications Medication Instructions Recorded Confirmed iron 160 mg-folate 1,700 mcg 1 tab PO DAILY 10/06/22 03/20/24 DFE-B12 60 mcg-vit O-zxysau-idzx tablet (MaxFe (folate)) prazosin 5 mg capsule 5 mg PO BEDTIME 02/20/24 03/20/24 hydroxyzine HCl 50 mg tablet 50 mg PO QID PRN Anxiety 02/29/24 03/20/24 olanzapine 5 mg disintegrating 5 mg PO TID PRN AGGITATION OR 02/29/24 03/20/24 tablet ANXIETY Previous Rx's Medication Instructions Recorded omeprazole 40 mg capsule,delayed 40 mg PO BID 7 days #14 caps 07/29/23 release risperidone 1 mg tablet 1 mg PO BID #60 tabs 02/05/24 trazodone 100 mg tablet 200 mg (2 x 100 mg) PO QPM PRN 02/05/24 insomnia #60 tabs hydrocortisone acetate 25 mg 25 mg [place] DAILY PRN itching #12 ea 02/29/24 rectal suppository (Anusol-HC) sennosides 8.6 mg-docusate sodium 1 tab-cap PO DAILY PRN 02/29/24 50 mg tablet (Senna with Docusate constipation #14 tabs Sodium) sertraline 100 mg tablet (Zoloft) 100 mg PO DAILY #30 tabs 03/20/24 sertraline 100 mg tablet (Zoloft) 200 mg (2 x 100 mg) PO DAILY #60 03/20/24 tabs Allergies Allergy/AdvReac Type Severity Reaction Status Date / Time morphine Allergy Severe ALGY-Difficulty Verified 05/09/24 11:12 Swallowing Anesthetics - Amide Type - Allergy Intermediate ADR-Nausea Verified 05/09/24 11:12 Select A Anesthetics - Yoanna Type- Allergy Intermediate ADR-Nausea Verified 05/09/24 11:12 Parabens COVID-19 (SARS-CoV-2) Allergy Unknown Verified 05/09/24 11:12 vaccine, kayleen [facility] ED PFSH: Medical History Psychiatric care Nonspecific chest pain Intermittent palpitations delivery delivered Family History Grandmother Diabetes Hypertension Family/Other Cancer breast Social History Smoking and tobacco/nicotine status: never used tobacco/nicotine Second hand smoke exposure: No Alcohol intake: never Substance/Drug Use: never Adopted: No Caregiver/support person: No Lives independently: No Household members: family and children Housing: Manufactured/Mobile home Marital status: Legally Number of children: 3 Highest education level completed: High School Graduate service: No Current occupational status: disabled Current occupational exposures/hazards: No Pets and animals: No Leisure activites: music, games, reading and other Leisure activities details: social media, board games, watch tv, read the Bible Do you think of yourself as: Straight/Heterosexual Current gender identity: Female Martha/Bahai: Taoism Special martha needs: No Agree to transfusion: Yes Female Reproductive History: Para: 3 Spontaneous abortions: No Discharge Plan Discharge Condition: Stable Prescriptions: No Action omeprazole 40 mg capsule,delayed release(DR/EC) 40 mg PO BID 7 Days Qty: 14 0RF MaxFe (folate) 160 mg-1,700 mcg DFE-60 mcg tablet 1 tab PO DAILY risperidone 1 mg tablet 1 mg PO BID Qty: 60 2RF trazodone 100 mg tablet 200 mg PO QPM PRN (Reason: insomnia) Qty: 60 2RF sertraline [Zoloft] 100 mg tablet 100 mg PO DAILY Qty: 30 0RF sertraline [Zoloft] 100 mg tablet 200 mg PO DAILY Qty: 60 11RF Rx Instructions: Start after 1 month on 100 mg. prazosin 5 mg capsule 5 mg PO BEDTIME hydroxyzine HCl 50 mg tablet 50 mg PO QID PRN (Reason: Anxiety) olanzapine 5 mg Tablet,Disintegrating 5 mg PO TID PRN (Reason: AGGITATION OR ANXIETY) Senna with Docusate Sodium 8.6-50 mg tablet 1 tab-cap PO DAILY PRN (Reason: constipation) Qty: 14 0RF Anusol-HC 25 mg suppository 25 mg [place] DAILY PRN (Reason: itching) Qty: 12 0RF Referrals: Emory Fuentes MD [Primary Care Provider] - Coding Level of Care Code ED Veneer Jointer Helper for g Ramesh
--- NOTE | 2024-05-10 09:07 | ECG_ITS ---
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 Measurements Intervals [place] Rate: 90 P: 14 MN: 151 QRS: 2 QRSD: 89 T: 28 QT: 349 QTc: 429 Interpretive Statements SINUS RHYTHM POSSIBLE ANTERIOR MYOCARDIAL INFARCTION , OF INDETERMINATE AGE [30 ms Q WAVE IN V3/V4, OR R < 0.2 mV IN V4] Compared to ECG 05/09/2024 01:54:32 No significant changes Electronically Signed On 05-10-2024 11:30:16 CDT by Fab Stephens M.D. [id number]
[2024-05-10 09:09] VITALS: BP 151/86; PULSE 91; RESP 20; TEMP 37.1; O2SAT 94; BMI 42.0
--- NOTE | 2024-05-10 09:14 | XR_ITS ---
WS: [id number] Portable AP upright chest, 05/10/2024 Clinical Data: chest pain Comparison: Portable chest, 05/09/2024 Findings: No nodules, masses or effusions are seen. The heart is normal. The pulmonary vascularity is not increased. No pneumonia or pneumothorax is seen. There are monitor leads on the chest wall. XR/XR chest 1V portable [id number] Impression: Negative chest.
--- NOTE | 2024-05-10 09:14 | W.ED.GENADLT ---
HPI - General Adult General: Chief complaint: Chest Pain Stated complaint: CHEST PAIN Time Seen by Provider: 05/10/24 09:05 Source: patient Mode of arrival: EMS Limitations: no limitations History of Present Illness: Patient is a 33-year-old female who is extremely well-known to our emergency department here via EMS stating that she feels like her body is trying to give up . Patient was seen here in the emergency department twice yesterday-one for chest pain and other for mental health. Patient feels like she has been talking to God and pleading with him to allow her to live but she feels like her body is telling her its time for it to go . When asked to elaborate on this, she states she is not suicidal. She just feels generally weak and takes this to indicate that her body is giving up. Triage report was that patient was having chest pain although she tells me she only has chest pain when somebody draws attention to it but if she can distract herself it goes away. Patient has been seen here multiple times for episodes of chest pain without any cardiac abnormalities. She is currently having some mild right lower back pain and a headache. She was given nitro en route by EMS reportedly for the chest pain. Exacerbating factors: none Associated symptoms: Reports chest pain and headache(s); Deny dyspnea, malaise, nausea, rash, palpitations, syncope or vomiting Treatments prior to arrival: other (nitro/aspirin given by EMS) Related Data Home Medications Medication Instructions Recorded Confirmed iron 160 mg-folate 1,700 mcg 1 tab PO DAILY 10/06/22 05/10/24 DFE-B12 60 mcg-vit D-hfmkrb-[id number] tablet (MaxFe (folate)) prazosin 5 mg capsule 5 mg PO BEDTIME 02/20/24 05/10/24 hydroxyzine HCl 50 mg tablet 50 mg PO QID PRN Anxiety 02/29/24 05/10/24 olanzapine 5 mg disintegrating 5 mg PO TID PRN AGGITATION OR 02/29/24 05/10/24 tablet ANXIETY albuterol sulfate 90 mcg/actuation 2 puff inhalation QID PRN 05/10/24 05/10/24 aerosol inhaler (Ventolin HFA) Shortness Of Breath polyethylene glycol 3350 17 See Rx Instructions .Route 05/10/24 05/10/24 gram/dose oral powder .COMPLEX PRN Constipation sertraline 50 mg tablet 50 mg PO DAILY 05/10/24 05/10/24 Previous Rx's Medication Instructions Recorded omeprazole 40 mg capsule,delayed 40 mg PO BID 7 days #14 caps 07/29/23 release risperidone 1 mg tablet 1 mg PO BID #60 tabs 02/05/24 trazodone 100 mg tablet 200 mg (2 x 100 mg) PO QPM PRN 02/05/24 insomnia #60 tabs hydrocortisone acetate 25 mg 25 mg [place] DAILY PRN itching #12 ea 02/29/24 rectal suppository (Anusol-HC) sennosides 8.6 mg-docusate sodium 1 tab-cap PO DAILY PRN 02/29/24 50 mg tablet (Senna with Docusate constipation #14 tabs Sodium) sertraline 100 mg tablet (Zoloft) 100 mg PO DAILY #30 tabs 03/20/24 sertraline 100 mg tablet (Zoloft) 200 mg (2 x 100 mg) PO DAILY #60 03/20/24 tabs nitrofurantoin 100 mg PO BID 7 days #14 caps 05/10/24 monohydrate/macrocrystals 100 mg capsule (Macrobid) Allergies Allergy/AdvReac Type Severity Reaction Status Date / Time morphine Allergy Severe ALGY-Difficulty Verified 05/10/24 09:17 Swallowing Anesthetics - Amide Type - Allergy Intermediate ADR-Nausea Verified 05/10/24 09:17 Select A Anesthetics - Yoanna Type- Allergy Intermediate ADR-Nausea Verified 05/10/24 09:17 Parabens COVID-19 (SARS-CoV-2) Allergy Unknown Verified 05/10/24 09:17 vaccine, kayleen Review of Systems Const: Denies: fever(s), chills, body aches, fatigue or malaise Eyes: Denies: change in vision or blurry vision Card: Reports: chest pain; Denies: palpitations, irregular heart rhythm, edema, swelling of feet/ankles, lightheadedness, syncope, pre-syncope, dyspnea on exertion, orthopnea, leg pain with exertion or acrocyanosis Resp: Denies: dyspnea, productive cough or pain on inspiration GI: Denies: abdominal pain, nausea, vomiting, heartburn or diarrhea : Denies: flank pain, difficulty voiding, dysuria, urinary frequency, urinary urgency or urinary hesitancy Musc: Reports: back pain; Denies: neck pain, extremity pain, extremity swelling, joint pain or joint swelling Skin/Breast: Denies: rash Neuro: Reports: headache(s); Denies: numbness in extremities, weakness in extremities or sensory changes PFSH ED PFSH: Medical History Psychiatric care Nonspecific chest pain Intermittent palpitations delivery delivered Family History Grandmother Diabetes Hypertension Family/Other Cancer breast Social History Smoking and tobacco/nicotine status: never used tobacco/nicotine Second hand smoke exposure: No Alcohol intake: never Substance/Drug Use: never Adopted: No Caregiver/support person: No Lives independently: No Household members: family and children Housing: Manufactured/Mobile home Marital status: Legally Number of children: 3 Highest education level completed: High School Graduate service: No Current occupational status: disabled Current occupational exposures/hazards: No Pets and animals: No Leisure activites: music, games, reading and other Leisure activities details: social media, board games, watch tv, read the Bible Do you think of yourself as: Straight/Heterosexual Current gender identity: Female Martha/Mosque: Mosque Special martha needs: No Agree to transfusion: Yes Female Reproductive History: Para: 3 Spontaneous abortions: No Physical Exam Const: COMMON NORMALS: no acute distress, patient oriented x3, no limitations and alert GENERAL APPEARANCE: cooperative NUTRITIONAL APPEARANCE: obese morbidly obese (BMI is 42) ORIENTATION/CONSCIOUSNESS: Yes awake, Yes oriented to person, Yes oriented to place and Yes oriented to time HENMT: COMMON NORMALS: normocephalic and atraumatic HEAD & SCALP: normal to inspection, normocephalic and atraumatic FACE & SINUS: normal facial exam Eye: GENERAL EYE: appearance normal, both eyes and all related structures Neck/C-Spine: COMMON NORMALS: full ROM, no lymphadenopathy and no meningeal signs GENERAL: Yes normal visual inspection Chest: COMMONS NORMALS: normal inspection of the chest and normal palpation of entire chest wall Resp: COMMON NORMALS: normal respiratory effort and clear to auscultation bilaterally AUSCULTATION: clear to auscultation bilaterally Cardio: COMMON NORMALS: regular rate and regular rhythm RATE: regular rate RHYTHM: regular rhythm GI: COMMON NORMALS: Normal to inspection, nondistended, normoactive bowel sounds present, Soft to palpation, non-tender, No hepatosplenomegaly present and no masses INSPECTION: Yes normal to inspection PALPATION: Yes Soft to palpation and Yes No hepatosplenomegaly present : COMMON NORMALS: Yes no CVA tenderness BLADDER/KIDNEY EXAM: Yes no CVA tenderness Back/Pelvis: COMMON NORMALS: no CVA tenderness, thoracic and lumbar spine normal to inspection and no thoracic nor lumbar tenderness LUMBAR SPINE/LOWER BACK: No lumbar spinal tenderness and Yes paraspinal muscle tenderness Lumbar paraspinal muscle tenderness: right PELVIS: Yes buttocks normal and No sciatic notch tenderness SACRUM: no tenderness COCCYX: no tenderness Extremity: COMMON NORMALS: normal to inspection, capillary refill normal, no clubbing, cyanosis or edema, no calf tenderness and no pedal edema GENERAL: Yes normal exam except as noted Neuro: RAVI COMA SCALE: document GCS findings Ravi coma scale eye opening: Spontaneous [place] coma scale verbal response: Orientated [place] coma scale motor response: Obey commands [place] coma scale total score: 15 COMMON NORMALS: patient oriented x3, moves all extremities, no focal motor deficits and no sensory deficits noted SENSORIUM/ORIENTATION: Yes alert, Yes oriented to person, Yes oriented to place and Yes oriented to time MENINGEAL SIGNS: Yes no meningeal signs Skin: COMMON NORMALS: no rashes or lesions noted GENERAL SKIN EXAM: no rashes or lesions noted Course Vital Signs: Vital signs: Vital Signs Temperature 98.7 F 05/10/24 09:09 Pulse Rate 88 05/10/24 10:46 Respiratory Rate 19 H 05/10/24 10:46 Blood Pressure 117/79 05/10/24 10:46 Pulse Oximetry 93 05/10/24 10:46 Oxygen Delivery Me thod Room Air 05/10/24 10:46 MDM - General Adult Medical Decision Making Patient appears in no acute distress. Her ED workup here is overall fairly benign. EKG, CXR, and baseline troponin are unremarkable. She has chronic elevations to her LFTs. Possible UTI with trace blood, 1+ leuks, 11-[address] on antibiotics. Recommend follow-up with her primary care provider. Return to ED ED precautions given. Medical Records I reviewed the patient's medical records. Lab Data I reviewed the patient's lab results. 05/10/24 09:28 05/10/24 09:28 Radiology Impressions Chest X-Ray 05/10/24 09:14 Impression: Negative chest. Laboratory Results WBC 8.46 10^3/uL (3.29-11.43) 05/10/24 09:28 RBC 4.37 10^6/uL (3.85-5.65) 05/10/24 09:28 Hgb 13.20 g/dL (11.27-16.99) 05/10/24 09:28 Hct 39.7 % (36-47) 05/10/24 09:28 MCV 90.8 fl (85-98) 05/10/24 09:28 MCH 30.2 pg (27-33) 05/10/24 09:28 MCHC 33.2 g/dL (30-55) 05/10/24 09:28 RDW 13.1 % (12.1-15.1) 05/10/24 09:28 Plt Count 345 10^3/cmm (157-399) 05/10/24 09:28 MPV 8.7 fL (7.4-10.4) 05/10/24 09:28 Neut % (Auto) 67.5 % 05/10/24 09:28 Lymph % (Auto) 24.6 % 05/10/24 09:28 [place] % (Auto) 6.4 % 05/10/24 09:28 Eos % (Auto) 0.9 % 05/10/24 09:28 Baso % (Auto) 0.4 % 05/10/24 09:28 Neut # (Auto) 5.71 10^3/uL (1.8-7.7) 05/10/24 09:28 Lymph # (Auto) 2.1 10^3/uL (0.8-4.8) 05/10/24 09:28 [place] # (Auto) 0.5 10^3/uL (0.2-0.9) 05/10/24 09:28 Eos # (Auto) 0.1 10^3/uL (0.0-0.8) 05/10/24 09:28 Baso # (Auto) 0.0 10^3/uL (0.0-0.1) 05/10/24 09:28 Nucleated RBC % (auto) 0 % 05/10/24 09:28 Nucleated RBCs # 0.0 /100WBC 05/10/24 09:28 Sodium 142 mmol/L (136-145) 05/10/24 09:28 Potassium 3.8 mmol/L (3.5-5.1) 05/10/24 09:28 Chloride 103 mmol/L (98-107) 05/10/24 09:28 Carbon Dioxide 25 mmol/L (22-29) 05/10/24 09:28 Anion Gap 17.8 (5-19) 05/10/24 09:28 BUN 11 mg/dL (6-20) 05/10/24 09:28 Creatinine 0.8 mg/dL (0.5-0.9) 05/10/24 09:28 GFR Calculation 83.1 mL/min (90-130) L 05/10/24 09:28 Glucose 124 mg/dL (65-115) H 05/10/24 09:28 Calculated Osmolality 295 mOsm/kg (285-295) 05/10/24 09:28 Calcium 9.5 mg/dL (8.5-10.5) 05/10/24 09:28 Total Bilirubin 0.4 mg/dL (0.15-1.2) 05/10/24 09:28 AST 33 U/L (0-32) H 05/10/24 09:28 ALT 56 U/L (0-33) H 05/10/24 09:28 Alkaline Phosphatase 144 U/L (35-105) H 05/10/24 09:28 Troponin T Baseline < 6 ng/L (0-10) 05/10/24 09:28 Total Protein 7.5 g/dL (6.6-8.7) 05/10/24 09:28 Albumin 4.7 g/dL (3.5-5.2) 05/10/24 09:28 Globulin 2.8 g/dL (1.3-4.6) 05/10/24 09:28 Lipase 29 U/L (13-60) 05/10/24 09:28 HCG, Qual Negative (Negative) 05/10/24 09:28 Urine Color Yellow (Yellow) 05/10/24 10:37 Urine Appearance Clear (CLEAR) 05/10/24 10:37 Urine pH 6.5 (5-7) 05/10/24 10:37 Ur Specific Dickey 1.011 (1.005-1.030) 05/10/24 10:37 Urine Protein Negative (Negative) 05/10/24 10:37 Urine Glucose (UA) Negative (Normal) 05/10/24 10:37 Urine Ketones Negative (Negative) 05/10/24 10:37 Urine Blood Trace (Negative) A 05/10/24 10:37 Urine Nitrate Negative (Negative) 05/10/24 10:37 Urine Bilirubin Negative (Negative) 05/10/24 10:37 Urine Urobilinogen 0.2 mg/dL (Negative) 05/10/24 10:37 Ur Leukocyte Esterase 1+ (Negative) A 05/10/24 10:37 Urine RBC 0-2 /hpf (0-2) 05/10/24 10:37 Urine WBC 11-20 /hpf (0-5) H 05/10/24 10:37 Ur Squamous Epith Cells 6-10 /hpf (0-5) 05/10/24 10:37 Amorphous Sediment Not Reportable 05/10/24 10:37 Urine Bacteria None seen /hpf (NONE) 05/10/24 10:37 Hyaline Casts 0-4 /lpf H 05/10/24 10:37 All radiology interpretation(s) finalized by discharge Discharge Plan Discharge Patient Disposition: Home Clinical Impression: Non-cardiac chest pain UTI (urinary tract infection) Qualifiers: Urinary tract infection type: acute cystitis Hematuria presence: with hematuria Qualified Code(s): N30.01 - Acute cystitis with hematuria Condition: Stable Prescriptions: New Macrobid 100 mg capsule 100 mg PO BID 7 Days Qty: 14 0RF Rx Instructions: must administer with a meal/food No Action omeprazole 40 mg capsule,delayed release(DR/EC) 40 mg PO BID 7 Days Qty: 14 0RF MaxFe (folate) 160 mg-1,700 mcg DFE-60 mcg tablet 1 tab PO DAILY risperidone 1 mg tablet 1 mg PO BID Qty: 60 2RF trazodone 100 mg tablet 200 mg PO QPM PRN (Reason: insomnia) Qty: 60 2RF sertraline [Zoloft] 100 mg tablet 100 mg PO DAILY Qty: 30 0RF sertraline [Zoloft] 100 mg tablet 200 mg PO DAILY Qty: 60 11RF Rx Instructions: Start after 1 month on 100 mg. prazosin 5 mg capsule 5 mg PO BEDTIME hydroxyzine HCl 50 mg tablet 50 mg PO QID PRN (Reason: Anxiety) olanzapine 5 mg Tablet,Disintegrating 5 mg PO TID PRN (Reason: AGGITATION OR ANXIETY) sennosides-docusate sodium [Senna with Docusate Sodium] 8.6-50 mg tablet 1 tab-cap PO DAILY PRN (Reason: constipation) Qty: 14 0RF hydrocortisone acetate [Anusol-HC] 25 mg suppository 25 mg [place] DAILY PRN (Reason: itching) Qty: 12 0RF polyethylene glycol 3350 17 gram/dose powder See Rx Instructions .ROUTE .COMPLEX PRN (Reason: Constipation) Rx Instructions: MIX AND USE 17 GRAMS BY MOUTH ONCE DAILY NEEDED FOR CONSTIPATION. Ventolin HFA 90 mcg/actuation HFA aerosol inhaler 2 puff INHALATION QID PRN (Reason: Shortness Of Breath) sertraline 50 mg tablet 50 mg PO DAILY Discharge Orders: Discharge ED (Routine); Ordered 05/10/24 Ordered By: Ana Alanis Referrals: Emory Fuentes MD [Primary Care Provider] - Activity Restrictions/Additional Instructions: Emergency department workup here overall nonconcerning. Possibility for a UTI so I will put you on antibiotics for this. Please follow-up with your primary care provider for any other nonemergent complaints you may have. Coding Level of Care Code ED Promotion Producer for Serina Chandler
[2024-05-10 09:37] LABS: Basophils % 0.4 %; Eosinophils # 0.1 10^3/uL (0.0-0.8); Eosinophils % 0.9 %; Hematocrit 39.7 % (36-47); Lymphocytes # 2.1 10^3/uL (0.8-4.8); Lymphocytes % 24.6 %; Mean Corpuscular HGB Conc 33.2 g/dL (30-55); Mean Corpuscular Hemoglobin 30.2 pg (27-33); Mean Corpuscular Volume 90.8 fl (85-98); Mean Platelet Volume 8.7 fL (7.4-10.4); Monocytes # 0.5 10^3/uL (0.2-0.9); Monocytes % 6.4 %; Neutrophils # 5.71 10^3/uL (1.8-7.7); Neutrophils % 67.5 %; Nucleated Red Blood Cells % 0 %; Platelet Count 345 10^3/cmm (157-399); Red Blood Count 4.37 10^6/uL (3.85-5.65); Red Cell Distribution Width 13.1 % (12.1-15.1); White Blood Count 8.46 10^3/uL (3.29-11.43)
[2024-05-10 09:47] LABS: HCG, Serum Qual Negative (Negative)
[2024-05-10 09:59] LABS: Troponin(5th) Baseline < 6 ng/L (0-10)
[2024-05-10 10:05] LABS: Alanine Aminotransferase 56 U/L (0-33); Albumin Level 4.7 g/dL (3.5-5.2); Alkaline Phosphatase 144 U/L (35-105); Anion Gap 17.8 (5-19); Aspartate Amino Transferase 33 U/L (0-32); Blood Urea Nitrogen 11 mg/dL (6-20); Calcium 9.5 mg/dL (8.5-10.5); Carbon Dioxide 25 mmol/L (22-29); Chloride 103 mmol/L (98-107); Creatinine Clr Calc Pharmacy 150.3655; Globulin 2.8 g/dL (1.3-4.6); Glomerular Filtration Rate 83.1 mL/min (90-130); Glucose 124 mg/dL (65-115); Lipase 29 U/L (13-60); Osmolality Calculated 295 mOsm/kg (285-295); Potassium 3.8 mmol/L (3.5-5.1); Sodium 142 mmol/L (136-145); Total Bilirubin 0.4 mg/dL (0.15-1.2); Total Protein 7.5 g/dL (6.6-8.7)
[2024-05-10 10:43] LABS: Charge for UA Resulting for Rev
[2024-05-10 10:46] VITALS: BP 117/79; PULSE 88; RESP 19; O2SAT 93
[2024-05-10 10:47] LABS: Bilirubin Urine Negative (Negative); Blood Urine Trace (Negative); Glucose Urine UA Negative (Normal); Ketones Urine Negative (Negative); Leukocyte Esterase Urine 1+ (Negative); Nitrate Urine Negative (Negative); Protein Urine Negative (Negative); Specific Gravity, Urine 1.011 (1.005-1.030); Urine Appearance Clear (CLEAR); Urine Color Yellow (Yellow); Urobilinogen Urine 0.2 mg/dL (Negative); pH Urine 6.5 (5-7)
[2024-05-10 10:53] LABS: Bacteria Urine None Seen /hpf; Hyaline Casts Urine 0-4 /lpf; RBC Urine 0-2 /hpf (0-2)
--- NOTE | 2024-05-10 11:13 | PC.PHAR ---
Pt states last medications taken yesterday in the evening.
[2024-05-10 11:47] VITALS: BP 123/90; PULSE 101; RESP 18; O2SAT 97
[2024-05-10 11:52] VITALS: BP 123/90; PULSE 101; RESP 18; O2SAT 97
== END 2024-05-10 11:52 | disposition home or self-care (01) ==
PROVIDERS: Emergency Provider Physician Assistant; PCP Family Medicine
DX: R07.89 Other chest pain (principal); N30.01 Acute cystitis with hematuria
CPT/HCPCS: 36415; 71045; 80053; 81003; 81015; 83690; 84484; 84703; 85025; 87086; 93005; 99285

== ENCOUNTER 2024-05-10 14:26 | Emergency (ER) | payer BC, MEDICAID, SELFPAY ==
[2023-10-18 16:27] VITALS: BP 124/77; BMI 44.3
[2024-05-10 14:33] VITALS: BMI 42.0
--- NOTE | 2024-05-10 14:34 | W.ED.PSYCHS ---
HPI - Psych General: Chief Complaint: Psychiatric Symptoms Stated Complaint: wants to go to stress unit Time Seen by Provider: 05/10/24 14:33 History of Present Illness: 33-year-old female who is very familiar to the emergency room here with a history of psychiatric issues anxiety and depression. She presents again for the second time today with wanting to come into the psychiatric hospital. I have explained to her multiple times in the past few weeks that inpatient psychiatry is not an escape but rather for people who have homicidal and suicidal ideation which she continues to deny. She says her grandmother tells her to come here to get admitted. She says it is called a stress unit and she feels that that supposed to be used to get her away from the stress of her life. I again explained to her that she is having acute issues that are not life-threatening that she needs to go to the crisis unit. I sent her there couple of days ago. She agrees and is going. Related Data Home Medications Medication Instructions Recorded Confirmed iron 160 mg-folate 1,700 mcg 1 tab PO DAILY 10/06/22 05/10/24 DFE-B12 60 mcg-vit B-nmkusg-tnuj tablet (MaxFe (folate)) prazosin 5 mg capsule 5 mg PO BEDTIME 02/20/24 05/10/24 hydroxyzine HCl 50 mg tablet 50 mg PO QID PRN Anxiety 02/29/24 05/10/24 olanzapine 5 mg disintegrating 5 mg PO TID PRN AGGITATION OR 02/29/24 05/10/24 tablet ANXIETY albuterol sulfate 90 mcg/actuation 2 puff inhalation QID PRN 05/10/24 05/10/24 aerosol inhaler (Ventolin HFA) Shortness Of Breath polyethylene glycol 3350 17 See Rx Instructions .Route 05/10/24 05/10/24 gram/dose oral powder .COMPLEX PRN Constipation sertraline 50 mg tablet 50 mg PO DAILY 05/10/24 05/10/24 Previous Rx's Medication Instructions Recorded omeprazole 40 mg capsule,delayed 40 mg PO BID 7 days #14 caps 07/29/23 release risperidone 1 mg tablet 1 mg PO BID #60 tabs 02/05/24 trazodone 100 mg tablet 200 mg (2 x 100 mg) PO QPM PRN 02/05/24 insomnia #60 tabs hydrocortisone acetate 25 mg 25 mg [place] DAILY PRN itching #12 ea 02/29/24 rectal suppository (Anusol-HC) sennosides 8.6 mg-docusate sodium 1 tab-cap PO DAILY PRN 02/29/24 50 mg tablet (Senna with Docusate constipation #14 tabs Sodium) sertraline 100 mg tablet (Zoloft) 100 mg PO DAILY #30 tabs 03/20/24 sertraline 100 mg tablet (Zoloft) 200 mg (2 x 100 mg) PO DAILY #60 03/20/24 tabs nitrofurantoin 100 mg PO BID 7 days #14 caps 05/10/24 monohydrate/macrocrystals 100 mg capsule (Macrobid) Allergies Allergy/AdvReac Type Severity Reaction Status Date / Time morphine Allergy Severe ALGY-Difficulty Verified 05/10/24 09:17 Swallowing Anesthetics - Amide Type - Allergy Intermediate ADR-Nausea Verified 05/10/24 09:17 Select A Anesthetics - Yoanna Type- Allergy Intermediate ADR-Nausea Verified 05/10/24 09:17 Parabens COVID-19 (SARS-CoV-2) Allergy Unknown Verified 05/10/24 09:17 vaccine, kayleen Review of Systems Narrative: Constitutional symptoms: Negative except as documented in HPI. Skin symptoms: Negative except as documented in HPI. Eye symptoms: Negative except as documented in HPI. ENMT symptoms: Negative except as documented in HPI. Respiratory symptoms: Negative except as documented in HPI. Cardiovascular symptoms: Negative except as documented in HPI. Gastrointestinal symptoms: Negative except as documented in HPI. Genitourinary symptoms: Negative except as documented in HPI. Musculoskeletal symptoms: Negative except as documented in HPI. Neurologic symptoms: Negative except as documented in HPI. Psychiatric symptoms: Negative except as documented in HPI. Endocrine symptoms: Negative except as documented in HPI. PFSH ED PFSH: Medical History Psychiatric care Nonspecific chest pain Intermittent palpitations delivery delivered Family History Grandmother Diabetes Hypertension Family/Other Cancer breast Social History Smoking and tobacco/nicotine status: never used tobacco/nicotine Second hand smoke exposure: No Alcohol intake: never Substance/Drug Use: never Adopted: No Caregiver/support person: No Lives independently: No Household members: family and children Housing: Manufactured/Mobile home Marital status: Legally Number of children: 3 Highest education level completed: High School Graduate service: No Current occupational status: disabled Current occupational exposures/hazards: No Pets and animals: No Leisure activites: music, games, reading and other Leisure activities details: social media, board games, watch tv, read the Bible Do you think of yourself as: Straight/Heterosexual Current gender identity: Female Martha/Druze: Quaker Special martha needs: No Agree to transfusion: Yes Female Reproductive History: Para: 3 Spontaneous abortions: No Physical Exam Narrative: EXAM NARRATIVE: General: Alert, no acute distress. Skin: Warm, dry. Head: Normocephalic, atraumatic. Neck: Supple, trachea midline. Eye: Extraocular movements are intact. Ears, nose, mouth and throat: mucosa moist. Cardiovascular: Regular, Normal peripheral perfusion. Respiratory: Lungs are clear to auscultation, respirations are non-labored, breath sounds are equal, Symmetrical chest wall expansion. Gastrointestinal: Soft, Nontender, Non distended Musculoskeletal: Normal ROM, no deformity. Neurological: Alert and oriented, No focal neurological deficit observed. Psychiatric: Cooperative, odd affect, denies homicidal or suicidal ideation Course Vital Signs: Vital signs: Vital Signs Temperature 98.9 F 05/10/24 14:59 Pulse Rate 70 05/10/24 14:59 Respiratory Rate 18 05/10/24 14:59 Blood Pressure 125/72 05/10/24 14:59 Pulse Oximetry 99 05/10/24 14:59 Oxygen Delivery Me thod Room Air 05/10/24 14:50 MDM - Psych Medical Decision Making Assessment and plan: Anxiety Depression Coping issues ? Patient is escorted to the crisis center. - Discharged home - Discussed plan with patient. Answered any questions. - Evaluation and treatment of this problem were appropriate in the emergency setting. No radiology studies performed this visit Discharge Plan Discharge Patient Disposition: Home Clinical Impression: Depression, Generalized anxiety disorder Condition: Stable Prescriptions: No Action omeprazole 40 mg capsule,delayed release(DR/EC) 40 mg PO BID 7 Days Qty: 14 0RF MaxFe (folate) 160 mg-1,700 mcg DFE-60 mcg tablet 1 tab PO DAILY risperidone 1 mg tablet 1 mg PO BID Qty: 60 2RF trazodone 100 mg tablet 200 mg PO QPM PRN (Reason: insomnia) Qty: 60 2RF sertraline [Zoloft] 100 mg tablet 100 mg PO DAILY Qty: 30 0RF sertraline [Zoloft] 100 mg tablet 200 mg PO DAILY Qty: 60 11RF Rx Instructions: Start after 1 month on 100 mg. prazosin 5 mg capsule 5 mg PO BEDTIME hydroxyzine HCl 50 mg tablet 50 mg PO QID PRN (Reason: Anxiety) olanzapine 5 mg Tablet,Disintegrating 5 mg PO TID PRN (Reason: AGGITATION OR ANXIETY) sennosides-docusate sodium [Senna with Docusate Sodium] 8.6-50 mg tablet 1 tab-cap PO DAILY PRN (Reason: constipation) Qty: 14 0RF hydrocortisone acetate [Anusol-HC] 25 mg suppository 25 mg [place] DAILY PRN (Reason: itching) Qty: 12 0RF polyethylene glycol 3350 17 gram/dose powder See Rx Instructions .ROUTE .COMPLEX PRN (Reason: Constipation) Rx Instructions: MIX AND USE 17 GRAMS BY MOUTH ONCE DAILY NEEDED FOR CONSTIPATION. Ventolin HFA 90 mcg/actuation HFA aerosol inhaler 2 puff INHALATION QID PRN (Reason: Shortness Of Breath) sertraline 50 mg tablet 50 mg PO DAILY Macrobid 100 mg capsule 100 mg PO BID 7 Days Qty: 14 0RF Rx Instructions: must administer with a meal/food Discharge Orders: Discharge ED (Routine); Ordered 05/10/24 Ordered By: Julia Beth Referrals: Emory Fuentes MD [Primary Care Provider] - Discharge Diet: Usual diet Discharge Activity: Increase activity as tolerated Patient Instructions: Depression (ED) Activity Restrictions/Additional Instructions: Please go immediately to the crisis center. If you develop suicidal thoughts, or thoughts of harming yourself, or thoughts of harming others please seek medical attention immediately. Thank you for choosing [facility] for your healthcare needs today. Please realize this is an emergency room and that we are providing you with a medical screening exam and this may not be complete and all inclusive of all the testing and or work up that you may need to determine your ailment or severity of your illness. You have been screened and evaluated and felt safe for discharge. Health conditions do change or evolve sometimes and as such it is important that you follow up with your Primary Doctor to be re checked, 3-5 days is a general good time frame for follow up. 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
[2024-05-10 14:50] VITALS: BP 125/72; PULSE 70; RESP 18; TEMP 37.2; O2SAT 99
[2024-05-10 14:59] VITALS: BP 125/72; PULSE 70; RESP 18; TEMP 37.2; O2SAT 99
== END 2024-05-10 14:59 | disposition home or self-care (01) ==
PROVIDERS: Emergency Provider Emergency Medicine; PCP Family Medicine
DX: F32.A Depression, unspecified (principal); F41.1 Generalized anxiety disorder
CPT/HCPCS: 99283

== ENCOUNTER 2024-05-10 18:36 | Emergency (ER) | payer BC, MEDICAID, SELFPAY ==
[2023-10-18 16:27] VITALS: BP 124/77; BMI 44.3
[2024-05-10 18:45] VITALS: BP 130/87; PULSE 105; RESP 16; TEMP 37.2; O2SAT 96
--- NOTE | 2024-05-10 19:15 | W.ED.PSYCHS ---
HPI - Psych General: Chief Complaint: Psychiatric Symptoms Stated Complaint: Just Left Neur\Wont Talk\ Time Seen by Provider: 05/10/24 18:40 History of Present Illness: 33-year-old female with a history of schizophrenia, depression and severe anxiety who presents to the emergency room again today for the third time. I also saw her yesterday and she was seen at least 1 other time yesterday. She has developed severe paranoia about her heart. She is convinced that she is going to . She has had multiple workups for this. Actually sent her yesterday and again today to the crisis unit. Have spoken with the crisis therapist. They had contacted the grandmother and spent at least an hour trying to convince her she is okay to go home. She will check into the emergency room get a workup and then go sit in the waiting room and then check back in. On patient here tonight she has stopped speaking. I feel this behavior has become a danger to herself. She is outpatient therapy and needs admission. There is COVID in the unit here so she will have to be transferred. Related Data Home Medications Medication Instructions Recorded Confirmed iron 160 mg-folate 1,700 mcg 1 tab PO DAILY 10/06/22 05/10/24 DFE-B12 60 mcg-vit [id number] tablet (MaxFe (folate)) prazosin 5 mg capsule 5 mg PO BEDTIME 02/20/24 05/10/24 hydroxyzine HCl 50 mg tablet 50 mg PO QID PRN Anxiety 02/29/24 05/10/24 olanzapine 5 mg disintegrating 5 mg PO TID PRN AGGITATION OR 02/29/24 05/10/24 tablet ANXIETY albuterol sulfate 90 mcg/actuation 2 puff inhalation QID PRN 05/10/24 05/10/24 aerosol inhaler (Ventolin HFA) Shortness Of Breath polyethylene glycol 3350 17 See Rx Instructions .Route 05/10/24 05/10/24 gram/dose oral powder .COMPLEX PRN Constipation sertraline 50 mg tablet 50 mg PO DAILY 05/10/24 05/10/24 Previous Rx's Medication Instructions Recorded omeprazole 40 mg capsule,delayed 40 mg PO BID 7 days #14 caps 07/29/23 release risperidone 1 mg tablet 1 mg PO BID #60 tabs 02/05/24 trazodone 100 mg tablet 200 mg (2 x 100 mg) PO QPM PRN 02/05/24 insomnia #60 tabs hydrocortisone acetate 25 mg 25 mg [place] DAILY PRN itching #12 ea 02/29/24 rectal suppository (Anusol-HC) sennosides 8.6 mg-docusate sodium 1 tab-cap PO DAILY PRN 02/29/24 50 mg tablet (Senna with Docusate constipation #14 tabs Sodium) sertraline 100 mg tablet (Zoloft) 100 mg PO DAILY #30 tabs 03/20/24 sertraline 100 mg tablet (Zoloft) 200 mg (2 x 100 mg) PO DAILY #60 03/20/24 tabs nitrofurantoin 100 mg PO BID 7 days #14 caps 05/10/24 monohydrate/macrocrystals 100 mg capsule (Macrobid) Allergies Allergy/AdvReac Type Severity Reaction Status Date / Time morphine Allergy Severe ALGY-Difficulty Verified 05/10/24 18:50 Swallowing Anesthetics - Amide Type - Allergy Intermediate ADR-Nausea Verified 05/10/24 18:50 Select A Anesthetics - Yoanna Type- Allergy Intermediate ADR-Nausea Verified 05/10/24 18:50 Parabens COVID-19 (SARS-CoV-2) Allergy Unknown Verified 05/10/24 18:50 vaccine, kayleen Review of Systems Narrative: Constitutional symptoms: Negative except as documented in HPI. Skin symptoms: Negative except as documented in HPI. Eye symptoms: Negative except as documented in HPI. ENMT symptoms: Negative except as documented in HPI. Respiratory symptoms: Negative except as documented in HPI. Cardiovascular symptoms: Negative except as documented in HPI. Gastrointestinal symptoms: Negative except as documented in HPI. Genitourinary symptoms: Negative except as documented in HPI. Musculoskeletal symptoms: Negative except as documented in HPI. Neurologic symptoms: Negative except as documented in HPI. Psychiatric symptoms: Negative except as documented in HPI. Endocrine symptoms: Negative except as documented in HPI. PFSH ED PFSH: Medical History Psychiatric care Nonspecific chest pain Intermittent palpitations delivery delivered Family History Grandmother Diabetes Hypertension Family/Other Cancer breast Social History Smoking and tobacco/nicotine status: never used tobacco/nicotine Second hand smoke exposure: No Alcohol intake: never Substance/Drug Use: never Adopted: No Caregiver/support person: No Lives independently: No Household members: family and children Housing: Manufactured/Mobile home Marital status: Legally Number of children: 3 Highest education level completed: High School Graduate service: No Current occupational status: disabled Current occupational exposures/hazards: No Pets and animals: No Leisure activites: music, games, reading and other Leisure activities details: social media, board games, watch tv, read the Bible Do you think of yourself as: Straight/Heterosexual Current gender identity: Female Martha/Church: Taoism Special martha needs: No Agree to transfusion: Yes Female Reproductive History: Para: 3 Spontaneous abortions: No Physical Exam Narrative: EXAM NARRATIVE: General: Alert, no acute distress. Skin: Warm, dry. Head: Normocephalic, atraumatic. Neck: Supple, trachea midline. Eye: Extraocular movements are intact. Ears, nose, mouth and throat: mucosa moist. Cardiovascular: Regular, Normal peripheral perfusion. Respiratory: Lungs are clear to auscultation, respirations are non-labored, breath sounds are equal, Symmetrical chest wall expansion. Gastrointestinal: Soft, Nontender, Non distended Musculoskeletal: Normal ROM, no deformity. Neurological: Alert and oriented, No focal neurological deficit observed. Psychiatric: patient is now not speaking. Course Vital Signs: Vital signs: Vital Signs Temperature 98.9 F 05/10/24 19:19 Pulse Rate 105 H 05/10/24 19:19 Respiratory Rate 16 05/10/24 19:19 Blood Pressure 130/87 05/10/24 19:19 Pulse Oximetry 96 05/10/24 19:19 Oxygen Delivery Me thod Room Air 05/10/24 18:45 MDM - Psych Medical Decision Making Medical decision making: Differential diagnosis for patient with reported psychosis with plan for psychiatric admission including but not limited to and based on the above HPI, review of systems and physical exam: concerns for infection, alcohol intoxication, cardiac issues or other medical problems prior to psychiatric admission. Orders placed to evaluate differential diagnosis based on the above differential, HPI and physical exam labwork, ekg ordered to evaluate the pathologies and to clear the patient medically prior to psychiatric admission Lab Review: Laboratory results were reviewed and interpreted by myself the emergency room physician. Workup was done earlier today twice. Most recently she had a white count of 8. Hemoglobin of 13. Sodium 141. Potassium 3.8. Chloride 103. Bicarb 25. BUN and creatinine 11 and 0.8. Glucose was 124. AST and ALT were 33 and 54. She has had multiple troponins that were negative. - Medically cleared. - EKG shows no ischemic changes. - Blood alcohol level is negative, as well as salicylate and Tylenol. - Drug screen is negative - No signs of infection, urinalysis clear and white count is not elevated - No anemia. - BUN and creatinine are within normal limits. I reviewed the patient's medical record. Assessment and plan: Psychosis Severe paranoia Schizophrenia ?Must be transferred as there is no beds available here. -Transfer for admission to neuropsychiatric unit for continued evaluation and treatment. - All lab work was reviewed and interpreted personally by myself, the ER physician - Evaluation and treatment of this problem were appropriate in the emergency setting Lab Data Laboratory Results TSH 3.50 uIU/mL (0.27-4.20) 05/10/24 19:48 HCG, Qual Negative (Negative) 05/10/24 19:48 Salicylates < 0.3 mg/dL (3-10) L 05/10/24 19:48 Urine Opiates Screen Negative ng/mL (Negative) 05/10/24 10:37 Acetaminophen < 5.0 ug/mL (10-30) L 05/10/24 19:48 Ur Barbiturates Screen Negative ng/mL (Negative) 05/10/24 10:37 Ur Phencyclidine Scrn Negative ng/mL (Negative) 05/10/24 10:37 Ur Amphetamines Screen Negative ng/mL (Negative) 05/10/24 10:37 U Benzodiazepines Scrn Negative ng/mL (Negative) 05/10/24 10:37 Urine Cocaine Screen Negative ng/mL (Negative) 05/10/24 10:37 U Marijuana (THC) Screen Negative ng/mL (Negative) 05/10/24 10:37 Ethyl Alcohol < 10 mg/dL (0-10) 05/10/24 19:48 SARS-CoV-2 Ag (Rapid) negative (Negative) 05/10/24 19:56 No radiology studies performed this visit Discharge Plan Discharge Patient Disposition: Xfer Short-Term Hosp Clinical Impression: Generalized anxiety disorder, Acute psychosis, Paranoia, Delusions, Schizophrenia Condition: Stable Referrals: Emory Fuentes MD [Primary Care Provider] - Discharge Diet: Usual diet Discharge Activity: Increase activity as tolerated Activity Restrictions/Additional Instructions: If you develop suicidal thoughts, or thoughts of harming yourself, or thoughts of harming others please seek medical attention immediately. Thank you for choosing [facility] for your healthcare needs today. Please realize this is an emergency room and that we are providing you with a medical screening exam and this may not be complete and all inclusive of all the testing and or work up that you may need to determine your ailment or severity of your illness. You have been screened and evaluated and felt safe for discharge. Health conditions do change or evolve sometimes and as such it is important that you follow up with your Primary Doctor to be re checked, 3-5 days is a general good time frame for follow up. You are always welcome to return to the ED for re assessment if your symptoms are worsening or you have new concerns Coding Level of Care Code ED Mailhouse Operator for Serina Chandler
[2024-05-10 19:19] VITALS: BP 130/87; PULSE 105; RESP 16; TEMP 37.2; O2SAT 96
[2024-05-10 19:53] LABS: Amphetamines Screen Urine Negative (Negative); Barbiturates Screen Urine Negative (Negative); Benzodiazepines Screen Urine Negative (Negative); Cocaine Screen Urine Negative (Negative); Opiate Screen Urine Negative (Negative); PCP Screen Urine Negative (Negative); THC Screen Urine Negative (Negative)
[2024-05-10 20:07] LABS: HCG, Serum Qual Negative (Negative)
[2024-05-10 20:23] LABS: SARS Covid-2 Antigen negative (Negative)
[2024-05-10 20:29] LABS: Acetaminophen < 5.0 ug/mL (10-30); Alcohol Level < 10 mg/dL (0-10); Salicylate < 0.3 mg/dL (3-10)
--- NOTE | 2024-05-10 22:42 | PC.NURSE ---
KRISTY faxed patient information to [facility] for review.
[2024-05-10 23:23] VITALS: BP 128/84; PULSE 96; O2SAT 94
--- NOTE | 2024-05-10 23:43 | PC.NURSE ---
Report was called by this nurse to Brandi Fernandez RN at [facility] facility at [place].
== END 2024-05-11 05:00 | disposition short-term general hospital (02) ==
PROVIDERS: Emergency Provider Emergency Medicine; PCP Family Medicine
DX: F41.1 Generalized anxiety disorder (principal); F20.0 Paranoid schizophrenia; Z11.52 Encounter for screening for COVID-19
CPT/HCPCS: 36415; 80306; 80307; 84443; 84703; 87426; 99285

== ENCOUNTER 2024-05-16 12:22 | Emergency (ER) | payer BC, MEDICAID, SELFPAY ==
[2023-10-18 16:27] VITALS: BP 124/77; BMI 44.3
[2024-05-16 12:36] VITALS: BP 132/76; PULSE 73; RESP 16; TEMP 36.7; O2SAT 98
--- NOTE | 2024-05-16 12:37 | ED_ITS ---
HPI - Anxiety General: Chief Complaint: Psychiatric Symptoms Stated Complaint: mhe Time Seen by Provider: 05/16/24 12:24 Source: patient and EMS Mode of arrival: EMS Limitations: no limitations History of Present Illness: 33-year-old female who is very well-know n to the ER has a history of chronic anxiety states she was admitted to psychiatric hospital last week at [place] she states she has had some increased anxiety since leaving she denies any suicidal or homicidal thoughts denies any worsening proving factors Associated symptoms: Deny chest pain, chills, fever(s), headache(s), nausea or vomiting Related Data Home Medications Medication Instructions Recorded Confirmed iron 160 mg-folate 1,700 mcg 1 tab PO DAILY 10/06/22 05/10/24 DFE-B12 60 mcg-vit P-dseove-vcuq tablet (MaxFe (folate)) prazosin 5 mg capsule 5 mg PO BEDTIME 02/20/24 05/10/24 hydroxyzine HCl 50 mg tablet 50 mg PO QID PRN Anxiety 02/29/24 05/10/24 olanzapine 5 mg disintegrating 5 mg PO TID PRN AGGITATION OR 02/29/24 05/10/24 tablet ANXIETY albuterol sulfate 90 mcg/actuation 2 puff inhalation QID PRN 05/10/24 05/10/24 aerosol inhaler (Ventolin HFA) Shortness Of Breath polyethylene glycol 3350 17 See Rx Instructions .Route 05/10/24 05/10/24 gram/dose oral powder .COMPLEX PRN Constipation sertraline 50 mg tablet 50 mg PO DAILY 05/10/24 05/10/24 Previous Rx's Medication Instructions Recorded omeprazole 40 mg capsule,delayed 40 mg PO BID 7 days #14 caps 07/29/23 release risperidone 1 mg tablet 1 mg PO BID #60 tabs 02/05/24 trazodone 100 mg tablet 200 mg (2 x 100 mg) PO QPM PRN 02/05/24 insomnia #60 tabs hydrocortisone acetate 25 mg 25 mg DE DAILY PRN itching #12 ea 02/29/24 rectal suppository (Anusol-HC) sennosides 8.6 mg-docusate sodium 1 tab-cap PO DAILY PRN 02/29/24 50 mg tablet (Senna with Docusate constipation #14 tabs Sodium) sertraline 100 mg tablet (Zoloft) 100 mg PO DAILY #30 tabs 03/20/24 sertraline 100 mg tablet (Zoloft) 200 mg (2 x 100 mg) PO DAILY #60 03/20/24 tabs nitrofurantoin 100 mg PO BID 7 days #14 caps 05/10/24 monohydrate/macrocrystals 100 mg capsule (Macrobid) Allergies Allergy/AdvReac Type Severity Reaction Status Date / Time morphine Allergy Severe ALGY-Difficulty Verified 05/10/24 18:50 Swallowing Anesthetics - Amide Type - Allergy Intermediate ADR-Nausea Verified 05/10/24 18:50 Select A Anesthetics - Yoanna Type- Allergy Intermediate ADR-Nausea Verified 05/10/24 18:50 Parabens COVID-19 (SARS-CoV-2) Allergy Unknown Verified 05/10/24 18:50 vaccine, kayleen Review of Systems Const: Denies: fever(s), chills, body aches or change in appetite ENMT: Denies: throat pain or dental pain Card: Denies: chest pain Resp: Denies: dyspnea GI: Denies: abdominal pain, nausea, vomiting or diarrhea Musc: Denies: neck pain or back pain Skin/Breast: Denies: rash Neuro: Denies: headache(s) Psych: Reports: anxiety; Denies: depression or suicidal ideation PFSH ED PFSH: Medical History Psychiatric care Nonspecific chest pain Intermittent palpitations delivery delivered Family History Grandmother Diabetes Hypertension Family/Other Cancer breast Social History Smoking and tobacco/nicotine status: never used tobacco/nicotine Second hand smoke exposure: No Alcohol intake: never Substance/Drug Use: never Adopted: No Caregiver/support person: No Lives independently: No Household members: family and children Housing: Manufactured/Mobile home Marital status: Legally Number of children: 3 Highest education level completed: High School Graduate service: No Current occupational status: disabled Current occupational exposures/hazards: No Pets and animals: No Leisure activites: music, games, reading and other Leisure activities details: social media, board games, watch tv, read the Bible Do you think of yourself as: Straight/Heterosexual Current gender identity: Female Martha/Buddhism: Mormon Special martha needs: No Agree to transfusion: Yes Female Reproductive History: Para: 3 Spontaneous abortions: No Physical Exam Const: COMMON NORMALS: no acute distress, patient oriented x3 and healthy appearing HENMT: COMMON NORMALS: normocephalic and atraumatic HEAD & SCALP: normocephalic and atraumatic Eye: COMMON NORMALS: conjunctivae normal CONJUNCTIVA: Yes conjunctivae normal Neck/C-Spine: COMMON NORMALS: full ROM and supple Chest: COMMONS NORMALS: normal inspection of the chest Resp: COMMON NORMALS: normal respiratory effort Extremity: COMMON NORMALS: normal to inspection and full ROM Neuro: COMMON NORMALS: patient oriented x3, moves all extremities and no focal motor deficits Psych: COMMON NORMALS: mental status grossly normal, Normal thought process present and cooperative THOUGHT PROCESS: Normal thought process present Skin: COMMON NORMALS: no rashes or lesions noted and no wounds GENERAL SKIN EXAM: no rashes or lesions noted Course Vital Signs: Vital signs: Vital Signs Temperature 98.1 F 05/16/24 12:36 Pulse Rate 73 05/16/24 12:36 Respiratory Rate 16 05/16/24 12:36 Blood Pressure 132/76 05/16/24 12:36 Pulse Oximetry 98 05/16/24 12:36 Oxygen Delivery Me thod Room Air 05/16/24 12:36 MDM - Anxiety Medical Decision Making Patient presents here with anxiety she has no SI no HI we will discharge her she is to go to the crisis stabilization return if worsening she understands agrees with plan Medical Records I reviewed the patient's medical records. No radiology studies performed this visit Discharge Plan Discharge Patient Disposition: Home Clinical Impression: Acute anxiety Condition: Stable Prescriptions: No Action omeprazole 40 mg capsule,delayed release(DR/EC) 40 mg PO BID 7 Days Qty: 14 0RF MaxFe (folate) 160 mg-1,700 mcg DFE-60 mcg tablet 1 tab PO DAILY risperidone 1 mg tablet 1 mg PO BID Qty: 60 2RF trazodone 100 mg tablet 200 mg PO QPM PRN (Reason: insomnia) Qty: 60 2RF sertraline [Zoloft] 100 mg tablet 100 mg PO DAILY Qty: 30 0RF sertraline [Zoloft] 100 mg tablet 200 mg PO DAILY Qty: 60 11RF Rx Instructions: Start after 1 month on 100 mg. prazosin 5 mg capsule 5 mg PO BEDTIME hydroxyzine HCl 50 mg tablet 50 mg PO QID PRN (Reason: Anxiety) olanzapine 5 mg Tablet,Disintegrating 5 mg PO TID PRN (Reason: AGGITATION OR ANXIETY) sennosides-docusate sodium [Senna with Docusate Sodium] 8.6-50 mg tablet 1 tab-cap PO DAILY PRN (Reason: constipation) Qty: 14 0RF hydrocortisone acetate [Anusol-HC] 25 mg suppository 25 mg DE DAILY PRN (Reason: itching) Qty: 12 0RF polyethylene glycol 3350 17 gram/dose powder See Rx Instructions .ROUTE .COMPLEX PRN (Reason: Constipation) Rx Instructions: MIX AND USE 17 GRAMS BY MOUTH ONCE DAILY NEEDED FOR CONSTIPATION. Ventolin HFA 90 mcg/actuation HFA aerosol inhaler 2 puff INHALATION QID PRN (Reason: Shortness Of Breath) sertraline 50 mg tablet 50 mg PO DAILY Macrobid 100 mg capsule 100 mg PO BID 7 Days Qty: 14 0RF Rx Instructions: must administer with a meal/food Discharge Orders: Discharge ED (Routine); Ordered 05/16/24 Ordered By: Dequan Acuña Referrals: Emory Fuentes MD [Primary Care Provider] - 4-7 days Discharge Diet: Advance as tolerated Discharge Activity: Resume usual activity Patient Instructions: Anxiety (ED) Coding Level of Care Code ED Nuclear Security Officer for Serina Chandler
[2024-05-16] MEDS: LORazepam 1 mg Tablet PO (12:41)
== END 2024-05-16 12:44 | disposition home or self-care (01) ==
PROVIDERS: Emergency Provider Emergency Medicine; PCP Family Medicine
DX: F41.9 Anxiety disorder, unspecified (principal)
CPT/HCPCS: 99283

== ENCOUNTER 2024-05-17 12:08 | Emergency (ER) | payer BC, MEDICAID, SELFPAY ==
[2023-10-18 16:27] VITALS: BP 124/77; BMI 44.3
[2024-05-17 12:26] VITALS: BP 136/87; PULSE 97; RESP 18; TEMP 36.9; O2SAT 97; BMI 42.0
[2024-05-17 12:37] VITALS: BP 136/87; PULSE 97; RESP 18; TEMP 36.9; O2SAT 97
--- NOTE | 2024-05-17 12:38 | W.ED.PSYCHS ---
HPI - Psych General: Chief Complaint: Psychiatric Symptoms Stated Complaint: MHE Time Seen by Provider: 05/17/24 12:17 Source: patient Mode of arrival: ambulatory Limitations: no limitations History of Present Illness: Patient is a 33-year-old female who is extremely well-known to our emergency department here for psychiatric evaluation. She was reportedly [facility]. Patient feels like Ruben is trying to take her spirit and kill her. She reports there is a safety issue if she goes home because Ruben and God are at war with her soul. Haunesty is very difficult to follow and her speech is tangential. Patient was recently released from [facility] for mental health issues. complaint: other (delusional/psychosis) Onset (ago): day(s) History of same: Yes Relieving factors: none Exacerbating factors: none Associated psychiatric symptoms: delusions Associated symptoms: Reports delusions; Deny depression, homicidal ideation or suicidal ideation Treatments prior to arrival: none Related Data Home Medications Medication Instructions Recorded Confirmed iron 160 mg-folate 1,700 mcg 1 tab PO DAILY 10/06/22 05/10/24 DFE-B12 60 mcg-vit [id number] tablet (MaxFe (folate)) prazosin 5 mg capsule 5 mg PO BEDTIME 02/20/24 05/10/24 hydroxyzine HCl 50 mg tablet 50 mg PO QID PRN Anxiety 02/29/24 05/10/24 olanzapine 5 mg disintegrating 5 mg PO TID PRN AGGITATION OR 02/29/24 05/10/24 tablet ANXIETY albuterol sulfate 90 mcg/actuation 2 puff inhalation QID PRN 05/10/24 05/10/24 aerosol inhaler (Ventolin HFA) Shortness Of Breath polyethylene glycol 3350 17 See Rx Instructions .Route 05/10/24 05/10/24 gram/dose oral powder .COMPLEX PRN Constipation sertraline 50 mg tablet 50 mg PO DAILY 05/10/24 05/10/24 Previous Rx's Medication Instructions Recorded omeprazole 40 mg capsule,delayed 40 mg PO BID 7 days #14 caps 07/29/23 release risperidone 1 mg tablet 1 mg PO BID #60 tabs 02/05/24 trazodone 100 mg tablet 200 mg (2 x 100 mg) PO QPM PRN 02/05/24 insomnia #60 tabs hydrocortisone acetate 25 mg 25 mg [place] DAILY PRN itching #12 ea 02/29/24 rectal suppository (Anusol-HC) sennosides 8.6 mg-docusate sodium 1 tab-cap PO DAILY PRN 02/29/24 50 mg tablet (Senna with Docusate constipation #14 tabs Sodium) sertraline 100 mg tablet (Zoloft) 100 mg PO DAILY #30 tabs 03/20/24 sertraline 100 mg tablet (Zoloft) 200 mg (2 x 100 mg) PO DAILY #60 03/20/24 tabs Allergies Allergy/AdvReac Type Severity Reaction Status Date / Time morphine Allergy Severe ALGY-Difficulty Verified 05/10/24 18:50 Swallowing Anesthetics - Amide Type - Allergy Intermediate ADR-Nausea Verified 05/10/24 18:50 Select A Anesthetics - Yoanna Type- Allergy Intermediate ADR-Nausea Verified 05/10/24 18:50 Parabens COVID-19 (SARS-CoV-2) Allergy Unknown Verified 05/10/24 18:50 vaccine, kayleen Review of Systems Const: Denies: fever(s) or chills Card: Denies: chest pain, palpitations, lightheadedness or syncope Resp: Denies: dyspnea GI: Denies: abdominal pain, nausea, vomiting or diarrhea Skin/Breast: Denies: rash Neuro: Denies: headache(s) Psych: Denies: anxiety, depression, suicidal ideation or homicidal ideation PFSH ED PFSH: Medical History Psychiatric care Nonspecific chest pain Intermittent palpitations delivery delivered Family History Grandmother Diabetes Hypertension Family/Other Cancer breast Social History Smoking and tobacco/nicotine status: never used tobacco/nicotine Second hand smoke exposure: No Alcohol intake: never Substance/Drug Use: never Adopted: No Caregiver/support person: No Lives independently: No Household members: family and children Housing: Manufactured/Mobile home Marital status: Legally Number of children: 3 Highest education level completed: High School Graduate service: No Current occupational status: disabled Current occupational exposures/hazards: No Pets and animals: No Leisure activites: music, games, reading and other Leisure activities details: social media, board games, watch tv, read the Bible Do you think of yourself as: Straight/Heterosexual Current gender identity: Female Martha/Roman Catholic: Latter-Day Special martha needs: No Agree to transfusion: Yes Female Reproductive History: Para: 3 Spontaneous abortions: No Physical Exam Const: COMMON NORMALS: no acute distress, patient oriented x3, alert and well nourished GENERAL APPEARANCE: cooperative NUTRITIONAL APPEARANCE: obese Resp: COMMON NORMALS: normal respiratory effort and clear to auscultation bilaterally AUSCULTATION: clear to auscultation bilaterally Cardio: COMMON NORMALS: regular rate and regular rhythm RATE: regular rate RHYTHM: regular rhythm Neuro: COMMON NORMALS: patient oriented x3 SENSORIUM/ORIENTATION: Yes alert Psych: COMMON NORMALS: mental status grossly normal, cooperative, normal affect, activity/motor behavior normal, denies hallucinations, denies homicidal ideation and denies suicidal ideation APPEARANCE: Yes grossly normal ATTITUDE: Yes calm ACTIVITY/MOTOR BEHAVIOR: Yes appropriate eye contact and No psychomotor agitation SPEECH: Yes excessive MOOD & AFFECT: Yes euthymic mood THOUGHT PROCESS: disorganized and Tangential thought process present THOUGHT CONTENT: Yes delusions ATTENTION/CONCENTRATION: Yes attention grossly intact and Yes concentration grossly intact MEMORY/COGNITION: Yes memory grossly intact and Yes cognition grossly intact INSIGHT: Limited insight present (Psych) JUDGEMENT: Limited judgement present (Psych) Skin: COMMON NORMALS: no rashes or lesions noted GENERAL SKIN EXAM: no rashes or lesions noted Course Vital Signs: Vital signs: Vital Signs Temperature 98.5 F 05/17/24 12:26 Pulse Rate 97 05/17/24 12:26 Respiratory Rate 18 05/17/24 12:26 Blood Pressure 136/87 05/17/24 12:26 Pulse Oximetry 97 05/17/24 12:26 Oxygen Delivery Me thod Room Air 05/17/24 12:26 MDM - Psych Medical Decision Making Patient has been seen in the ED several times just this month. She often will check herself into the ED multiple times in one day. She does not utilize outpatient services well. Her last appointment with her psychiatrist, Dr. Morgan, she missed and did not reschedule. I am at a loss on what to do with her. Crisis sent her here. She was just released from [facility]. If I discharge her, judging by previous behaviors, she will just check back in an hour to two later. Haunesty's mental capacity I feel is not appropriate to her age. Today her speech is tangential and she is delusional. She is hard to follow. She reportedly is the guardian of her children who are currently residing with her and the grandmother. I question her ability to parent these children in her current mental state and thus do not feel safe releasing her home. I will sent her back to [facility] for further mental treatment. Children are reportedly safe with grandmother. Differential Diagnosis Likely acute psychosis Medical Records I reviewed the patient's medical records. Lab Data I reviewed the patient's lab results. No radiology studies performed this visit Discharge Plan Discharge Patient Disposition: Xfer Psychiatric Hosp Clinical Impression: Acute psychosis Condition: Stable Prescriptions: No Action omeprazole 40 mg capsule,delayed release(DR/EC) 40 mg PO BID 7 Days Qty: 14 0RF MaxFe (folate) 160 mg-1,700 mcg DFE-60 mcg tablet 1 tab PO DAILY risperidone 1 mg tablet 1 mg PO BID Qty: 60 2RF trazodone 100 mg tablet 200 mg PO QPM PRN (Reason: insomnia) Qty: 60 2RF sertraline [Zoloft] 100 mg tablet 100 mg PO DAILY Qty: 30 0RF sertraline [Zoloft] 100 mg tablet 200 mg PO DAILY Qty: 60 11RF Rx Instructions: Start after 1 month on 100 mg. prazosin 5 mg capsule 5 mg PO BEDTIME hydroxyzine HCl 50 mg tablet 50 mg PO QID PRN (Reason: Anxiety) olanzapine 5 mg Tablet,Disintegrating 5 mg PO TID PRN (Reason: AGGITATION OR ANXIETY) sennosides-docusate sodium [Senna with Docusate Sodium] 8.6-50 mg tablet 1 tab-cap PO DAILY PRN (Reason: constipation) Qty: 14 0RF hydrocortisone acetate [Anusol-HC] 25 mg suppository 25 mg [place] DAILY PRN (Reason: itching) Qty: 12 0RF polyethylene glycol 3350 17 gram/dose powder See Rx Instructions .ROUTE .COMPLEX PRN (Reason: Constipation) Rx Instructions: MIX AND USE 17 GRAMS BY MOUTH ONCE DAILY NEEDED FOR CONSTIPATION. Ventolin HFA 90 mcg/actuation HFA aerosol inhaler 2 puff INHALATION QID PRN (Reason: Shortness Of Breath) sertraline 50 mg tablet 50 mg PO DAILY Referrals: Emory Fuentes MD [Primary Care Provider] - Coding Level of Care Code ED Pasta Press Operator for Chg Ramesh
--- NOTE | 2024-05-17 12:47 | ECG_ITS ---
[facility] Test Date: 2024-05-17 Pat Name: Kathi Torres Department: Room: Gender: Female Chief Design Branch: : 1990 Requested By: Ana Alanis Order Number: [id number] Odilon MD: Carlene Sheridan M.D. Measurements Intervals [place] Rate: 77 P: 30 [place]: 149 QRS: 0 QRSD: 99 T: 5 QT: 367 QTc: 417 Interpretive Statements SINUS RHYTHM WITH SINUS ARRHYTHMIA LOW QRS VOLTAGE IN PRECORDIAL LEADS [QRS DEFLECTION < 1.0 mV IN CHEST LEADS] Compared to ECG 05/10/2024 09:07:19 Low QRS voltage now present Myocardial infarct finding no longer present Electronically Signed On 05-17-2024 18:30:28 CDT by Carlene Sheridan M.D. [id number]
[2024-05-17 13:00] LABS: Charge for UA Resulting for Rev
[2024-05-17 13:02] LABS: Bilirubin Urine Negative (Negative); Blood Urine Negative (Negative); Glucose Urine UA Negative (Normal); Ketones Urine 1+ (Negative); Leukocyte Esterase Urine Trace (Negative); Nitrate Urine Negative (Negative); Protein Urine Negative (Negative); Specific Gravity, Urine 1.012 (1.005-1.030); Urine Appearance Clear (CLEAR); Urine Color Yellow (Yellow); pH Urine 6.5 (5-7)
[2024-05-17 13:05] LABS: Bacteria Urine None Seen /hpf; Hyaline Casts Urine 0-4 /lpf; RBC Urine 0-2 /hpf (0-2); WBC Urine 0-5 /hpf (0-5)
[2024-05-17 13:07] LABS: Basophils # 0.1 10^3/uL (0.0-0.1); Basophils % 0.6 %; Eosinophils # 0.2 10^3/uL (0.0-0.8); Eosinophils % 1.4 %; Lymphocytes # 3.2 10^3/uL (0.8-4.8); Mean Corpuscular HGB Conc 33.5 g/dL (30-55); Mean Corpuscular Hemoglobin 30.8 pg (27-33); Mean Corpuscular Volume 91.8 fl (85-98); Mean Platelet Volume 8.8 fL (7.4-10.4); Monocytes # 0.6 10^3/uL (0.2-0.9); Monocytes % 5.8 %; Neutrophils # 6.69 10^3/uL (1.8-7.7); Neutrophils % 61.9 %; Nucleated Red Blood Cells % 0 %; Platelet Count 344 10^3/cmm (157-399); Red Blood Count 4.03 10^6/uL (3.85-5.65); Red Cell Distribution Width 12.9 % (12.1-15.1); White Blood Count 10.78 10^3/uL (3.29-11.43)
[2024-05-17 13:07] LABS: Add Urine Culture? No
[2024-05-17 13:13] LABS: Amphetamines Screen Urine Negative (Negative); Barbiturates Screen Urine Negative (Negative); Benzodiazepines Screen Urine Positive (Negative); Cocaine Screen Urine Negative (Negative); Opiate Screen Urine Negative (Negative); PCP Screen Urine Negative (Negative); THC Screen Urine Negative (Negative)
[2024-05-17 13:24] LABS: HCG, Serum Qual Negative (Negative)
[2024-05-17 13:30] LABS: Alanine Aminotransferase 50 U/L (0-33); Albumin Level 4.6 g/dL (3.5-5.2); Alkaline Phosphatase 145 U/L (35-105); Anion Gap 17.7 (5-19); Aspartate Amino Transferase 36 U/L (0-32); Blood Urea Nitrogen 14 mg/dL (6-20); Calcium 9.1 mg/dL (8.5-10.5); Carbon Dioxide 24 mmol/L (22-29); Chloride 101 mmol/L (98-107); Creatinine Clr Calc Pharmacy 171.8463; Globulin 3.2 g/dL (1.3-4.6); Glucose 102 mg/dL (65-115); Osmolality Calculated 289 mOsm/kg (285-295); Potassium 3.7 mmol/L (3.5-5.1); Salicylate 1.8 mg/dL (3-10); Sodium 139 mmol/L (136-145); Thyroid Stimulating Hormone 0.57 uIU/mL (0.27-4.20); Total Bilirubin 0.4 mg/dL (0.15-1.2); Total Protein 7.8 g/dL (6.6-8.7)
[2024-05-17 13:42] LABS: Acetaminophen < 5.0 ug/mL (10-30); Alcohol Level < 10 mg/dL (0-10)
[2024-05-17 13:48] LABS: Influenza A by IFA Negative (Negative); Influenza B by IFA Negative (Negative); RSV Transfer Patient (ED) Negative (Negative)
[2024-05-17 14:00] LABS: SARS Covid-2 Antigen negative (Negative)
[2024-05-17 15:06] VITALS: BP 117/82; PULSE 75; RESP 16; O2SAT 96
--- NOTE | 2024-05-17 16:55 | PC.NURSE ---
this nurse was notified by pts sitter that pt had been in the bathroom for approximately 45 minutes and wouldn't come out. this nurse knocked on bathroom door and pt stated she felt she still needed to pee. this nurse told pt she needed to wrap it up and come out of the bathroom. pt said okay, flushed the toilet and came out of the bathroom stating i dropped some toilet paper . this nurse escorted pt back to her room and then cleaned the toilet paper up. this nurse informed pts nurse, Migdalia QUINTERO, that this happened.
[2024-05-17] MEDS: LORazepam 1 mg Tablet PO (17:58)
[2024-05-17 18:15] VITALS: BP 129/85; PULSE 94; O2SAT 97
[2024-05-18] MEDS: OLANZapine 10 mg ODT 20 MG PO (00:05)
== END 2024-05-18 05:41 ==
PROVIDERS: Emergency Provider Physician Assistant; PCP Family Medicine
DX: F23 Brief psychotic disorder (principal)
CPT/HCPCS: 36415; 80053; 80306; 80307; 81003; 81015; 84443; 84703; 85025; 87426; 87804; 87899; 93005; 99285

== ENCOUNTER → 2024-09-05 07:57 | Outpatient (BNVA) | payer BC, MEDICAID, SELFPAY ==
[2023-10-18 16:27] VITALS: BP 124/77; BMI 44.3
== END ==
PROVIDERS: PCP Family Medicine; Referring Provider Family Medicine; Visit Provider Specialist
DX: G56.03 Carpal tunnel syndrome, bilateral upper limbs
CPT/HCPCS: 95911

== ENCOUNTER → 2024-10-03 13:26 | Outpatient (BNVA) | payer OTHER, SELFPAY ==
[2023-10-18 16:27] VITALS: BP 124/77; BMI 44.3
== END ==
PROVIDERS: PCP Family Medicine; Visit Provider Psychiatry & Neurology Psychiatry
DX: F31.9 Bipolar disorder, unspecified (principal); F41.1 Generalized anxiety disorder; Z79.899 Other long term (current) drug therapy
CPT/HCPCS: 80061; 83036

== ENCOUNTER → 2024-10-23 08:20 | Outpatient (BNVA) | payer MEDICAID, SELFPAY ==
[2024-10-08 10:34] VITALS: BP 126/85; BMI 43.4
== END ==
PROVIDERS: PCP Family Medicine; Visit Provider Nurse Practitioner
DX: G56.03 Carpal tunnel syndrome, bilateral upper limbs (principal)
CPT/HCPCS: 73110; 99204

== ENCOUNTER 2025-08-07 14:33 | Emergency (ER) | payer BC, MEDICAID, SELFPAY ==
[2024-10-08 10:34] VITALS: BP 126/85; BMI 43.4
[2025-08-07 14:35] VITALS: BP 110/75; PULSE 98; RESP 18; TEMP 36.8; O2SAT 96; BMI 42.0
--- NOTE | 2025-08-07 14:41 | ECG_ITS ---
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 Measurements Intervals [place] Rate: 99 P: 17 FL: 139 QRS: -36 QRSD: 100 T: 18 QT: 330 QTc: 425 Interpretive Statements SINUS RHYTHM LEFT AXIS DEVIATION [QRS AXIS < -30] LOW QRS VOLTAGE IN PRECORDIAL LEADS [QRS DEFLECTION < 1.0 mV IN CHEST LEADS] POSSIBLE ANTERIOR MYOCARDIAL INFARCTION , OF INDETERMINATE AGE [30 ms Q WAVE IN V3/V4, OR R < 0.2 mV IN V4] Non diagnostic T wave changes Compared to ECG 05/17/2024 12:47:34 Left-axis deviation now present Myocardial infarct finding now present Sinus arrhythmia no longer present Electronically Signed On 08-09-2025 14:10:29 THERAPEUTIC RIDING INSTRUCTOR by Carlene Sheridan M.D. [id number]
--- NOTE | 2025-08-07 14:42 | XR_ITS ---
WS: [id number] XR chest 1V portable 40250 REASON FOR EXAM: cp FINDINGS: Chest is unchanged compared to 05/10/2024. There may be mild cardiomegaly. Mild calcified granulomatous disease bilaterally. No acute pulmonary parenchymal or pleural abnormality is identified. The bony thorax is intact without significant abnormality. XR/XR chest 1V portable 36348 IMPRESSION: Stable chest without acute abnormality.
[2025-08-07 15:45] VITALS: BP 126/58; PULSE 88; RESP 16; O2SAT 97
--- NOTE | 2025-08-07 16:04 | W.ED.CHESTPA ---
HPI - Chest Pain General: Chief Complaint: Chest Pain Stated Complaint: cp Time Seen by Provider: 08/07/25 15:35 History of Present Illness: 35-year-old female presents emergency room with complaints of chest discomfort. Has been having some chest discomfort for a couple of days she went to the walk-in clinic they gave her aspirin and sent her here by EMS. She was given nitro x 2 no immediate relief of symptoms she states now an hour and a half after receiving the nitro the pain is gone. She is not diabetic she has no history of any arrhythmias or coronary artery disease. Associated symptoms: Deny abdominal pain, dyspnea or fever(s) Related Data Home Medications ?Medication ?Instructions ?Recorded ?Confirmed albuterol sulfate 90 mcg/actuation 2 puff inhalation QID PRN 05/10/24 07/18/25 aerosol inhaler (Ventolin HFA) Shortness Of Breath polyethylene glycol 3350 17 See Rx Instructions .Route 05/10/24 07/18/25 gram/dose oral powder .COMPLEX PRN Constipation sennosides 8.6 mg-docusate sodium 1 tab PO DAILY PRN constipation 05/17/24 07/18/25 50 mg tablet (Senna with Docusate Sodium) melatonin 10 mg chewable tablet mg PO .HS PRN 07/10/24 07/18/25 omeprazole 10 mg capsule,delayed 10 mg PO BID 07/18/25 07/18/25 release Previous Rx's ?Medication ?Instructions ?Recorded hydrocortisone acetate 25 mg 25 mg [place] DAILY PRN itching #12 ea 02/29/24 rectal suppository (Anusol-HC) naproxen 500 mg tablet 500 mg PO BID 90 days #180 tabs 07/07/25 buspirone 10 mg tablet 10 mg PO BID #60 tabs 07/18/25 hydroxyzine HCl 50 mg tablet 50 mg PO QID PRN Anxiety #120 tabs 07/18/25 olanzapine 5 mg tablet 5 mg PO BID #60 tabs 07/18/25 risperidone 1 mg tablet 1 mg PO BID #60 tabs 07/18/25 trazodone 100 mg tablet 200 mg (2 x 100 mg) PO QPM PRN 07/18/25 insomnia #60 tabs Allergies Allergy/AdvReac Type Severity Reaction Status Date / Time morphine Allergy Severe ALGY-Difficulty Verified 07/18/25 12:53 Swallowing Anesthetics - Amide Type - Allergy Intermediate ADR-Nausea Verified 07/18/25 12:53 Select A Anesthetics - Yoanna Type- Allergy Intermediate ADR-Nausea Verified 07/18/25 12:53 Parabens COVID-19 (SARS-CoV-2) Allergy Unknown Verified 07/18/25 12:53 vaccine, kayleen Review of Systems Const: Denies: fever(s) or chills Card: Denies: chest pain Resp: Denies: dyspnea GI: Denies: abdominal pain : Denies: dysuria, urinary frequency or urinary urgency Musc: Denies: neck pain or back pain Skin/Breast: Denies: rash PFSH ED PFSH: Medical History Psychiatric care Nonspecific chest pain Intermittent palpitations delivery delivered Family History Grandmother Diabetes Hypertension Family/Other Cancer breast Social History Smoking and tobacco/nicotine status: never used tobacco/nicotine Second hand smoke exposure: No Alcohol intake: never Substance/Drug Use: never Adopted: No Caregiver/support person: No Lives independently: No Household members: family and children Housing: Manufactured/Mobile home Marital status: Legally Number of children: 3 Highest education level completed: High School Graduate service: No Current occupational status: disabled Current occupational exposures/hazards: No Pets and animals: No Leisure activites: music, games, reading and other Leisure activities details: social media, board games, watch tv, read the Bible Do you think of yourself as: Straight/Heterosexual Current gender identity: Female Martha/Denominational: Mormon Special martha needs: No Agree to transfusion: Yes Female Reproductive History: Para: 3 Spontaneous abortions: No Physical Exam Const: COMMON NORMALS: no acute distress GENERAL APPEARANCE: cooperative and comfortable ORIENTATION/CONSCIOUSNESS: Yes awake, Yes oriented to person, Yes oriented to place and Yes oriented to time HENMT: COMMON NORMALS: normocephalic, atraumatic and hearing grossly normal bilaterally HEAD & SCALP: normocephalic and atraumatic Resp: COMMON NORMALS: normal respiratory effort, No retractions, No use of accessory muscles and clear to auscultation bilaterally AUSCULTATION: clear to auscultation bilaterally Cardio: COMMON NORMALS: regular rate, regular rhythm and No murmurs present (Cardio) RATE: regular rate RHYTHM: regular rhythm GI: COMMON NORMALS: Soft to palpation and No hepatosplenomegaly present AUSCULTATION: Yes normoactive bowel sounds PALPATION: Yes Soft to palpation, No Tenderness to palpation present (GI), No Guarding due to palpation present (GI) and Yes No hepatosplenomegaly present Extremity: COMMON NORMALS: normal to inspection, capillary refill normal, no clubbing, cyanosis or edema, no calf tenderness and no pedal edema Neuro: SENSORIUM/ORIENTATION: Yes oriented to person, Yes oriented to place and Yes oriented to time Skin: COMMON NORMALS: no rashes or lesions noted GENERAL SKIN EXAM: no rashes or lesions noted Course Vital Signs: Vital signs: Vital Signs Temperature 98.2 F 08/07/25 14:35 Pulse Rate 88 08/07/25 15:45 Respiratory Rate 16 08/07/25 15:45 Blood Pressure 126/58 08/07/25 15:45 Pulse Oximetry 97 08/07/25 15:45 Oxygen Delivery Me thod Room Air 08/07/25 15:45 MDM - Chest Pain Medical Decision Making No further chest discomfort. EKG and chest x-ray negative reviewed previous EKGs and previous cardiac workups all been negative patient has no risk factors will discharge patient will have her follow-up with primary care Medical Records I reviewed the patient's medical records. Lab Data I reviewed the patient's lab results. Radiology Impressions Chest X-Ray 08/07/25 14:42 IMPRESSION: Stable chest without acute abnormality. All radiology interpretation(s) finalized by discharge EKG Data EKG 1: I personally reviewed and interpreted this EKG as follows: Prior EKG tracings: available for review Interpretation: EKG 08/07/2025 1441 sinus rhythm no acute ST changes noted. Rate of 99. [place] 139 QTc 387. Compared EKG 05/17/2024 no acute changes Discharge Plan Discharge Patient Disposition: Home Clinical Impression: Atypical chest pain Condition: Stable Prescriptions: No Action melatonin 10 mg tablet,chewable PO .HS PRN naproxen 500 mg tablet 500 mg PO BID 90 Days Qty: 180 0RF Rx Instructions: Take 1 tablet every 12 hours omeprazole 10 mg capsule,delayed release(DR/EC) 10 mg PO BID buspirone 10 mg tablet 10 mg PO BID Qty: 60 11RF hydroxyzine HCl 50 mg tablet 50 mg PO QID PRN (Reason: Anxiety) Qty: 120 11RF olanzapine 5 mg tablet 5 mg PO BID Qty: 60 11RF risperidone 1 mg tablet 1 mg PO BID Qty: 60 11RF trazodone 100 mg tablet 200 mg PO QPM PRN (Reason: insomnia) Qty: 60 11RF hydrocortisone acetate [Anusol-HC] 25 mg suppository 25 mg [place] DAILY PRN (Reason: itching) Qty: 12 0RF polyethylene glycol 3350 17 gram/dose powder See Rx Instructions .ROUTE .COMPLEX PRN (Reason: Constipation) Rx Instructions: MIX AND USE 17 GRAMS BY MOUTH ONCE DAILY NEEDED FOR CONSTIPATION. albuterol sulfate [Ventolin HFA] 90 mcg/actuation HFA aerosol inhaler 2 puff INHALATION QID PRN (Reason: Shortness Of Breath) Senna with Docusate Sodium 8.6-50 mg tablet 1 tab PO DAILY PRN (Reason: constipation) Discharge Orders: Discharge ED (Routine); Ordered 08/07/25 Ordered By: Dima Encinas Referrals: Emory Fuentes MD [Primary Care Provider, Family Practice] Discharge Diet: Usual diet Discharge Activity: Resume usual activity Patient Instructions: Chest Pain (ED), Opioid Safety, Pain Management, Patient Portal & Stevo Instructions Activity Restrictions/Additional Instructions: Thank you for choosing [facility] for your healthcare needs today. It is very important that you follow up as instructed or that you return to the Emergency Department should you have concerns or if your condition changes or worsens in any way. Emergency department visits are focused on emergent conditions, in some cases you may require further evaluation on an outpatient basis. You were seen in the emergency room with complaints of chest pain. Your EKG and chest x-ray were normal. Recommend that you follow-up with your primary care doctor within the next 2 weeks. (Please note that included in your discharge packet is information concerning opioid safety and pain management. This information is given to all patients were discharged from the ER regardless of their discharge diagnosis or the medicines they usually take or are prescribed.) Print Language: Polish Coding Level of Care Code ED Clinical Data Management Director for Chg Fwd Heart Score HEART Score Components History: Slightly Suspicous EKG: Normal Age: Less than 45 yrs Risk Factors: No Risk Factors Known Troponin: Baseline Trop <16 ng/L (Pain and resolved troponin not done) HEART Score RESULT HEART Score: 0
--- NOTE | 2025-08-07 16:06 | ECG_ITS ---
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 Measurements Intervals [place] Rate: 78 P: 22 OR: 144 QRS: -8 QRSD: 108 T: 30 QT: 372 QTc: 425 Interpretive Statements SINUS RHYTHM WITH SINUS ARRHYTHMIA LOW QRS VOLTAGE IN PRECORDIAL LEADS [QRS DEFLECTION < 1.0 mV IN CHEST LEADS] POSSIBLE ANTERIOR MYOCARDIAL INFARCTION , OF INDETERMINATE AGE [30 ms Q WAVE IN V3/V4, OR R < 0.2 mV IN V4] Compared to ECG 08/07/2025 14:41:52 Left-axis deviation no longer present Myocardial infarct finding still present Electronically Signed On 08-09-2025 14:09:37 STITCH MARKER by Carlene Sheridan M.D. [id number]
[2025-08-07 16:32] VITALS: BP 118/91; PULSE 81; RESP 16; O2SAT 96
--- OUTSIDE RECORDS SUMMARY | 2025-08-07 17:00 | XMS_ITS | Continuity of Care Document ---
Author Organization RICHAR [facility] Cristal, Nahid, [facility] ([facility]) Address [address] [place] [address] Care Team Providers Care Hand Sole Sewer Name Role Phone BASILIO FUENTES Primary Care Provider Unavailabl e Assessment No assessment recorded. Plan of Treatment Reminders Order Date Submit Date Provider Last Modified By Organization Details Last Modified Time Details Appointments ACUTE VISIT 2024 01:20P M WALK-IN Not available Not available Not available OFFICE VISIT 15 2025 09:00A Serena Fuentes MD Not available Not available Not available Lab CMP, serum or plasma 2024 025 [facility] [address], [facility], [place], [address], 07/16/2025 14:07:32 lipid panel, blood 2024 025 [facility] [address] [facility], [facility], [place], [address], 07/16/2025 14:07:34 CBC 2024 025 On license of [facility], [address] [facility], [facility], [place], [address], 07/16/2025 13:36:30 Referral None recorded . Procedures None recorded . Surgeries None recorded . Imaging None recorded . Medication Orders None recorded . Patient TargetsNo targets recorded. Patient Instructions Encounter Date Encounter Id Patient Instructions Last Modified By Organization Details Last Modified Time 07/16/2025 [id number] Continue to work on GED. Not available 07/16/2025 12:41:14 Reason for Referral None Reported. Results Created Date Observation Date Name Description Value Unit Range Abnormal Flag Note LastModifiedBy Organization Detail LastModifiedTime 07/16/2007/16/2025 CBC WBC 7.9 x10 4.0-10 .5 Not Available [facility] [address], [place], [address], 07/16/2025 13:36:30 07/16/2007/16/2025 CBC RBC 4.22 x10 3.50-5 .50 Not Available [facility] [address], [place], [address], 07/16/2025 13:36:30 07/16/2007/16/2025 CBC HGB 13.0 g/dL 12.0-1 6.0 Not Available [facility] [address] [facility], [place], [address], 07/16/2025 13:36:30 07/16/2007/16/2025 CBC HCT 39.3 % 37.0-4 7.0 Not Available [facility] [address], [place], [address], 07/16/2025 13:36:30 07/16/2007/16/2025 CBC MCV 93.2 fL 80.0-9 9.9 Not Available [facility] [address] [facility] [address], [place], [address], 07/16/2025 13:36:30 07/16/2007/16/2025 CBC MCH 30.9 pg 27.0-3 2.0 Not Available [facility] [address], [place], [address], 07/16/2025 13:36:30 07/16/2007/16/2025 CBC MCHC 33.2 g/dL 32.0-3 6.0 Not Available [facility] [address] [facility], [place], [address], 07/16/2025 13:36:30 07/16/2007/16/2025 CBC RDW 12.5 % 11.5-1 4.5 Not Available [facility] [address] [facility] [address], [place], [address], 07/16/2025 13:36:30 07/16/2007/16/2025 CBC plt 318.0 x10 140.0- 451.0 Not Available [facility] [address] [facility], [place], [address], 07/16/2025 13:36:30 07/16/2007/16/2025 CBC lymphocytes % 31.7 % 20.0-5 0.0 Not Available [facility] [address] [facility] [address], [place], [address], 07/16/2025 13:36:30 07/16/2007/16/2025 CBC granulcytes % 58.0 % 30.0-7 0.0 Not Available [facility] [address] [facility] [address], [place], [address], 07/16/2025 13:36:30 07/16/2007/16/2025 CBC monocytes % 8.6 % 2.0-16 .0 Not Available [facility] [address] [facility] [address], [place], [address], 07/16/2025 13:36:30 07/16/20 25 07/16/2025 CBC granulcytes# 4.6 x10 Not Chela ilable [facility] [address] [facility], [place], [address], 07/16/2025 13:36:30 07/16/20 25 07/16/2025 CBC lymphocytes # 2.5 x10 Not Available [facility] [address] [address], [place], [address], 07/16/2025 13:36:30 07/16/20 25 07/16/2025 CBC monocytes # 0.7 x10 Not Avai lable [facility] [address] [address], [place], [address], 07/16/2025 13:36:30 07/16/20 25 07/16/2025 CMP (FEMA LE) glucose 108.0 mg/dL 60.0-9 9.0 high Not Available [address] [address], [place], [address], 07/16/2025 14:07:32 07/16/20 25 07/16/2025 CMP (FEMA LE) BUN (blood urea nitrogen) 11.0 mg/dL 10.0-2 6.0 Not Available [address] [address], [place], [address], 07/16/2025 14:07:32 07/16/20 25 07/16/2025 CMP (FEMA LE) creatinine (serum) 0.7 mg/dL 0.4-1. 5 Not Available [address] [address], [place], [address], 07/16/2025 14:07:32 07/16/20 25 07/16/2025 CMP (FEMA LE) BUN/creatini ne ratio 15.71 ratio Not Available [address] [address], [place], [address], 07/16/2025 14:07:32 07/16/20 25 07/16/2025 CMP (FEMA LE) eGFR calculated 102.4 Not Available [address] [place] [facility], [place], [address], 07/16/2025 14:07:32 07/16/2007/16/2025 CMP (FEMA LE) total protein 8.1 g/dL 6.0-8. 5 Not Available [facility] [address] [facility] [address], [place], [address], 07/16/2025 14:07:32 07/16/2007/16/2025 CMP (FEMA LE) total bilirubin 0.6 mg/dL 0.2-1. 3 Not Available [facility] [address] [facility] [address], [place], [address], 07/16/2025 14:07:32 07/16/20 25 07/16/2025 CMP (FEMA LE) albumin 4.7 g/dL 3.5-5. 5 Not Available [facility] [address] [facility] [address], [place], [address], 07/16/2025 14:07:32 07/16/2007/16/2025 CMP (FEMA LE) globulin 3.4 calc Not Available [facility] [address] [facility] [address], [place], [address], 07/16/2025 14:07:32 07/16/2007/16/2025 CMP (FEMA LE) AST (SGOT) 32.0 U/L 0.0-46 .0 Not Available [facility] [address] [facility] [address], [place], [address], 07/16/2025 14:07:32 07/16/2007/16/2025 CMP (FEMA LE) altv (SGPT) 27.0 U/L 13.0-6 9.0 normal Not Available [facility] [address] [facility] [address], [place], [address], 07/16/2025 14:07:32 07/16/20 25 07/16/2025 CMP (FEMA LE) A/G ratio 1.4 ratio Not Available [facility] [address] [facility], [place], [address], 07/16/2025 14:07:32 07/16/2007/16/2025 CMP (FEMA LE) ALP phos 109.0 U/L 30.0-1 40.0 normal Not Available [facility] [address] [facility], [place], [address], 07/16/2025 14:07:32 07/16/2007/16/2025 CMP (FEMA LE) calcium 9.7 mg/dL 8.4-10 .5 Not Available [facility] [address] [facility] [address], [place], [address], 07/16/2025 14:07:32 07/16/20 25 07/16/2025 CMP (FEMA LE) sodium 144.0 mmol/ L 136.0- 145.0 Not Available [facility] [address] [facility], [place], [address], 07/16/2025 14:07:32 07/16/2007/16/2025 CMP (FEMA LE) potassium 4.0 mmol/ L 3.5-5. 1 Not Available [facility] [address] [facility] [address], [place], [address], 07/16/2025 14:07:32 07/16/2007/16/2025 CMP (FEMA LE) chloride 106.0 mmol/ L 98.0-1 10.0 normal Not Available [facility] [address] [facility], [place], [address], 07/16/2025 14:07:32 07/16/2007/1607/16/2025 CMP (FEMA LE) C02 27.0 mmol/ L 22.0-3 1.0 Not Available [facility] [address] [facility] [address], [place], [address], 07/16/2025 14:07:32 07/16/20 25 07/16/2025 CMP (FEMA LE) anion gap 11.0 calc Not Available [facility] [address] [facility] [address], [place], [address], 07/16/2025 14:07:32 07/16/2007/16/2025 CMP (FEMA LE) osmolality 297.1 calc Not Available [facility] [address] [facility] [address], [place], [address], 07/16/2025 14:07:32 07/16/20 25 07/16/2025 LIPID PROFI LE (FEMA LE) cholesterol 181.0 mg/dL 0.0-20 0.0 Not Available [facility] [address] [facility] [address], [place], [address], 07/16/2025 14:07:34 07/16/20 25 07/16/2025 LIPID PROFI LE (FEMA LE) trig 151.0 mg/dL 0.0-15 0.0 high Not Available [facility] [address] [facility] [address], [place], [address], 07/16/2025 14:07:34 07/16/20 25 07/16/2025 LIPID PROFI LE (FEMA LE) HDL - direct 33.0 mg/dL >40.0 low Not Available [facility] [address] [facility] [address], [place], [address], 07/16/2025 14:07:34 07/16/20 25 07/16/2025 LIPID PROFI LE (FEMA LE) VLDL - direct 30.2 mg/dL Not Available [facility] [address], [place], [address], 07/16/2025 14:07:34 07/16/2007/16/2025 LIPID PROFI LE (FEMA LE) LDL - direct 117.8 mg/dL 0.0-13 0.0 Not Available [facility] [address], [place], [address], 07/16/2025 14:07:34 Result Notes None recorded. Problems Name Problem SNOMED Code Status Onset Date Resolution Date Notes Provider Name and Address Organization Details Recorded Time section Completed 201101/10/2025 Section; 02/25/15; Date: 02/06/20 12 JANI king [facility] 5 09:59:05 Borderli ne personal ity disorder 20975991 [facility] 2022 [facility] 09:58:31 Major depressi ve disorder 562238439 Active 2022 JANI king [facility] 5 09:58:31 Reactive airway disease 69775331168 6 Active 2022 JANI king [facility] 5 09:58:31 Mixed anxiety and depressi ve disorder 750063486 Active 2022 JANI king [facility] 5 09:58:31 Non-card iac chest pain 564777807 Active 2022 JANI king [facility] 5 09:58:31 Gastroes ophageal reflux disease 257635214 Active 2022 JANI king [facility] 5 09:58:31 Obesity 313108494 Active 2022 JANI king [facility] 5 09:58:31 Liver enzymes level above referenc e range 737015879 Completed 202201/10/2025 JANI king [facility] 5 09:59:05 Atypical chest pain 627425448 Active 2023 Basilio Fuentes MD [address] [place] [address], [phone], [facility], HuiL[place]enne[place] 5 10:10:39 Chronic constipa tion 112307536 Active 2023 JANI king [facility], Kristie.L.CCheyenne 5 09:58:31 External hemorrho ids 88966416 Active 2023 JANI king [facility] 5 09:58:31 Paranoid ideation 950612862 Active 2023 JANI king [facility] 5 09:58:31 Bilatera l carpal tunnel syndrome 25551123347 770317 Active 2023 JANI king [facility] 5 09:58:31 Generali zed anxiety disorder 74548400 Active 2024 JANI king [facility] 5 09:58:31 Gastroes ophageal reflux disease without esophagi tis 304302852 Active 2024 AMRITA king [facility] 5 12:41:53 Problem Notes None recorded. Procedures Surgical History Date Name Laterality Status Provider Name and Address Organization Details Recorded Time 5 Nexplanon Removal completed Silvia Guido MD [address] [place], [address], [facility], Nahid 02/25/2025 13:35:31 section completed Keke Dawn [facility], LCheyenneLCesario 08/07/2025 14:36:25 Imaging Results None recorded. Procedure Notes None recorded. Medical Equipment None Reported. Allergies Allergen ID Allergen Name Allergen Category Reaction Reaction Severity Criticality Documentation Date Start Date Code Code System Note Provider Name and Address Organization Details Recorded Time 0652 morphine medicatio n Not available Not available Not available 01/16/2023 7052 RxNorm Loretta king [facility], HuiLCesario 4 18:51:44 90794 Abilify medicatio n chest pain vomiting severe mild high 04/15/2023 55804 3 RxNorm Loretta king [facility], HuiL[place]enne[place] 4 18:51:27 79819 Reglan medicatio n rash mild low 04/15/2023 9230 RxNorm Loretta king [facility], LCheyenneLCheyenneCCheyenne 4 18:51:49 33560 morphine sulfate medicatio n respirato ry distress vomiting severe mild high 04/15/2023 61861 RxNorm Loretta king [facility] LCheyenneLCheyenneCCheyenne 4 18:51:42 Medications Name Sig Start Date Stop Date Status Note LastModified by Organization Details LastModified Time hydroxyzi ne pamoate 100 mg capsule TAKE 1 CAPSULE BY MOUTH TWICE DAILY NEEDED FOR ANXIETY 02/24 completed Not Available Not Available Not Available promethaz ine-DM 6.25 mg-15 mg/5 mL oral syrup TAKE 5 ML BY MOUTH EVERY 4 HOURS NEEDED 01/10 completed Not Available Not Available Not Available prednison e 10 mg tablet TAKE 2 TABLETS BY MOUTH ONCE DAILY FOR 3 DAYS THEN 1 ONCE DAILY UNTIL GONE 12/30 completed Not Available Not Available Not Available doxycycli ne hyclate 100 mg capsule TAKE 1 CAPSULE BY MOUTH TWICE DAILY 01/18 completed Not Available Not Available Not Available cefuroxim e axetil 250 mg tablet TAKE 1 TABLET BY MOUTH EVERY 12 HOURS FOR URINARY INFECTIO N FOR 7 DAYS 01/14 completed Not Available Not Available Not Available aspirin 325 mg tablet Take 1 tablet every day by oral route. 05/03 completed Not Available Not Available Not Available fluconazo le 150 mg tablet TAKE 1 TABLET BY MOUTH ONCE DAILY FOR 1 DAY (TAKE AFTER COMPLETI NG ONE WEEK OF CEFUROXI ME) 01/14 completed Not Available Not Available Not Available meloxicam 15 mg tablet TAKE 1 TABLET BY MOUTH ONCE DAILY 05/03 completed Not Available Not Available Not Available famotidin e 40 mg tablet Take 1 tablet twice a day by oral route for 30 days. 12/14 completed Not Available Not Available Not Available sertralin e 100 mg tablet TAKE 1 TABLET BY MOUTH ONCE DAILY 04/08 completed Not Available Not Available Not Available olanzapin e 5 mg tablet TAKE 1 TABLET BY MOUTH TWICE DAILY active Not Available Not Available No t Available olanzapin e 10 mg tablet TAKE 1 TABLET BY MOUTH TWICE DAILY 10/09 completed Not Available Not Available Not Available metronida zole 500 mg tablet TAKE 1 TABLET BY MOUTH TWICE DAILY FOR 7 DAYS 02/08 completed Not Available Not Available Not Available hydroxyzi ne HCl 50 mg tablet TAKE 1 TABLET BY MOUTH 4 TIMES DAILY NEEDED FOR ANXIETY active Not Available Not Available No t Available omeprazol e 40 mg capsule,d elayed release Take 1 capsule by mouth twice daily 2024 active Not Available Not Available Not Avai lable prazosin 5 mg capsule TAKE 1 CAPSULE BY MOUTH AT BEDTIME 05/03 completed Not Available Not Available Not Available famotidin e 20 mg tablet TAKE 1 TABLET BY MOUTH TWICE DAILY 08/15 completed Not Available Not Available Not Available trazodone 100 mg tablet TAKE 2 TABLETS BY MOUTH ONCE DAILY IN THE EVENING NEEDED FOR INSOMNIA active Not Available Not Available No t Available buspirone 10 mg tablet TAKE 1 TABLET BY MOUTH TWICE DAILY active Not Available Not Available No t Available omeprazol e 20 mg capsule,d elayed release TAKE 1 CAPSULE BY MOUTH ONCE DAILY IN THE MORNING ON AN EMPTY STOMACH 03/31 completed Not Available Not Available Not Available aspirin 81 mg chewable tablet Chew 4 tablets every day by oral route as needed for 1 day. 2024 active Not Available Not Available Not Avai lable clomipram ine 50 mg capsule TAKE 1 CAPSULE BY MOUTH ONCE DAILY AT BEDTIME 02/08 completed Not Available Not Available Not Available cefuroxim e axetil 500 mg tablet TAKE 1 TABLET BY MOUTH EVERY 12 HOURS FOR URINARY INFECTIO N FOR 7 DAYS 01/02 completed Not Available Not Available Not Available polyethyl yin glycol 3350 17 gram/dose oral powder MIX AND USE 17 GRAMS BY MOUTH ONCE DAILY active Not Available Not Available No t Available sertralin e 50 mg tablet TAKE 1 TABLET BY MOUTH ONCE DAILY 05/17 completed Not Available Not Available Not Available risperido ne 1 mg tablet TAKE 1 TABLET BY MOUTH TWICE DAILY active Not Available Not Available No t Available naproxen 500 mg tablet TAKE 1 TABLET BY MOUTH EVERY 12 HOURS active Not Available Not Available No t Available Ventolin HFA 90 mcg/actua tion aerosol inhaler INHALE 2 PUFFS BY MOUTH 4 TIMES DAILY NEEDED active Not Available Not Available No t Available olanzapin e 5 mg disintegr ating tablet DISSOLVE 1 TABLET IN MOUTH THREE TIMES DAILY NEEDED FOR AGITATIO N/PSYCHO SIS FOR 30 DAYS 05/28 completed Not Available Not Available Not Available divalproe x ER 250 mg tablet,ex tended release 24 hr TAKE 3 TABLETS BY MOUTH ONCE DAILY 02/08 completed Not Available Not Available Not Available nitrofura ntoin monohydra te/macroc rystals 100 mg capsule TAKE 1 CAPSULE BY MOUTH TWICE DAILY FOR 7 DAYS WITH FOOD 05/28 completed Not Available Not Available Not Available olanzapin e three times daily, as needed 06/02 completed Recorded 06/01/20 22 1:18PM by Amrita Cadet, Office Visit; Refill Quantity : 45; Tablet; Not Available Not Available Not Available albuterol sulfate four times daily, as needed 12/14 completed Recorded 04/15/20 22 10:30AM by Basilio Fuentes MD, Office Visit; Refill Quantity : 1; Packet; Not Available Not Available Not Available risperido ne BID 06/02 completed 0; Recorded 09/30/19 23 9:43AM by Amrita Cadet, Office Visit; Not Available Not Available Not Available buspirone 05/28 completed unsure of dose. Not Available Not Available Not Available Aspir-Lox daily 06/02 completed 0; Recorded 09/30/19 23 9:43AM by Amrita Cadet, Office Visit; Not Available Not Available Not Available Divalproe x Sodium (Migraine ) daily 08/15 completed 0; Recorded 09/30/19 23 9:43AM by Amrita Cadet, Office Visit; Not Available Not Available Not Available paliperid one ER 9 mg tablet,ex tended release 24 hr TAKE 1 TABLET BY MOUTH ONCE DAILY AT 9 PM FOR 30 DAYS 02/08 completed Not Available Not Available Not Available paliperid one ER 3 mg tablet,ex tended release 24 hr TAKE 1 TABLET BY MOUTH IN THE MORNING 02/08 completed Not Available Not Available Not Available Natroba 0.9 % topical suspensio n Apply 1 mL by topical route as directed for 7 days. 08/15 completed Not Available Not Available Not Available Nexplanon 68 mg subdermal implant Inject 1 implant by subcutan eous route. 2024 active Not Available Not Available Not Avai lable Vitals Date Recorded Body height Body mass index (BMI) Body weight Heart rate Systolic And Diastolic Provider Name and Address Organization Details Last Updated DateTime 07/16/2025 152.4 cm 40.2 kg/m2 41816.03 g 80 /min 121/82 mm[Hg] JANI PHILLIP [facility] 11:50:55 Social History Question Answer Notes LastModified by Organizat ion Details LastModified Time Tobacco Smoking Status Never Smoker AMRITA king [facility] 12/30/2022 16:15:18 What Was The Date Of Your Most Recent Tobacco Screening? 08/07/2025 [email or web address] Information not available 08/07/2025 Sex: Unknown Functional Status Question Answer Note LastModified by Organizat ion Details LastModified Time Do you use any illicit or recreational drugs? No [email or web address] Information not available 12/30/2022 What is your level of alcohol consumption? None [email or web address] Information not available 12/30/2022 Mental Status None recorded. Family History Nothing Reported. Medical History Condition Response Coronary Artery Disease N Other N Gout N Kidney Stones N Blood Diseases N Hyperthyroidism N Breast Cancer N Blood Transfusion N Hypothyroidism N Depression N COPD N Lung Disease N Defects or Inherited Disease N Developmental or Behavioral Disorders N Breast Problem N Difficulty Swallowing N Anesthesia Complications N Anxiety Disorder N Meniere's disease N Muscle, Joint, or Bone Problems N Vision or Eye Problems N Arthritis N Polyps N Infertility N Cancer N Varicosities N Stroke N Endometriosis N Bladder or Kidney Problems N High Cholesterol N Liver Disease N Headaches N Fibromyalgia N Kidney Disease N Allergies/Hayfever N Heart Problems N Ear or Hearing Problems N Hospitalizations N Thyroid Problems N GI Problems N ADD/ADHD N Skin Problems N Eating Disorder N Anemia N Constipation N Mental Illness N Ovarian Cancer N Diabetes N Bedwetting N Seizures/Epilepsy N Tuberculosis N Eczema N Diverticulitis N Abuse/Domestic Violence N Asthma N Reflux/GERD N Hepatitis N Heart Disease N Pulmonary Embolism N Chronic Ear Infections N Pre-Eclampsia N Hypertension N Chicken Pox N Autism Spectrum Disorder (ASD) N Osteoporosis N Thrombophilias N Gynecological HistoryNo gynecological history recorded. Obstetrics History GPAL:G 3 P 3 0 0 3 Type Value Full Term 3 Living 3 Total 3 Immunizations Vaccine Type Date Status Note Provider Nam e and Address Organization Details Recorded Time Influenza, split virus, trivalent, preservative 0 completed Not Available [facility] 08/15/2023 16:35:03 Influenza, split virus, trivalent, preservative 8 completed Not Available [facility] 08/15/2023 16:35:03 Hib-Hep B 0 completed [facility] 14:27:29 MMR 6 completed [facility]23 14:27:29 MMR 3 completed [facility]23 14:27:29 DTP 6 completed AMRITA CADET null, [facility] 03/31/2023 14:27:29 Hep B, unspecified formulation 6 completed AMRITA CADET null, [facility] 03/31/2023 14:27:29 Hep B, unspecified formulation 3 completed AMRITA CADET null, [facility] 03/31/2023 14:27:29 Hep B, unspecified formulation 6 completed AMRITA CADET null, [facility] 03/31/2023 14:27:29 OPV, trivalent 2 completed AMRITA CADET null, [facility] 03/31/2023 14:27:29 OPV, trivalent 2 completed AMRITA CADET null, [facility] 03/31/2023 14:27:29 OPV, trivalent 6 completed AMRITA CADET null, [facility] 03/31/2023 14:27:29 OPV, trivalent 2 completed AMRITA CADET null, [facility] 03/31/2023 14:27:29 DTP-Hib 2 completed AMIRTA CADET null, [facility] 03/31/2023 14:27:29 DTP-Hib 2 completed AMRITA CADET null, [facility] 03/31/2023 14:27:29 DTP-Hib 2 completed AMRITA CADET null, [facility] 03/31/2023 14:27:29 Hib (HbOC) 7 completed AMRITA CADET null, [facility], Nahid 03/31/2023 14:27:29 DTaP 7 completed AMRITA OMID king, [facility], [place] 03/31/2023 14:27:29 Influenza, split virus, quadrivalent, PF 3 completed AMRITA OMID king, [facility], [place] 03/31/2023 14:27:30 Past Encounters Encounter ID Performer Location Encounter Start Date Encounter Closed Date Diagnosis/Indication Diagnosis SNOMED-CT Code Diagnosis ICD10 Code Diagnosis IMO Codes Diagnosis Note [id number] Basilio Fuentes MD [facility] ([facility]) [address] [place] [phone] 07/16/2025 11:09:36 07/16/2025 14:15:40 Borderline personality disorder 92887535 F60.3 Doing well at this time. She is followed by Dr. Morgan at [facility]. Mixed anxi ety and depressive disorder 914543249 F41.8 stable, possible bipolar. Followed by Dr. Mrogan. Gastroesop hageal reflux disease 170362377 K21.9 stable on Omeprazole . Health Concerns Section Related Observation LastModified by Organization Detai ls LastModified Time None Recorded Concern Status LastModified by Organization Details LastModified Time None Recorded Payers Encounter Date Sequence Insurance Name Policy Number Policy Encinas Covered Member ID [place] Member ID Guarantor Name 07/16/2025 1 [place] ([place]AC[place] - HMO) [id number] Saul Torres [id number] Haunesty J Brian 07/16/2025 2 [place] Haunesty J [place] [id number] Hagregoriasty J Brian OBGyn Episode No OBEpisode recorded.
== END 2025-08-07 16:33 | disposition home or self-care (01) ==
PROVIDERS: Emergency Provider Family Medicine; PCP Family Medicine
DX: R07.89 Other chest pain (principal)
CPT/HCPCS: 71045; 93005; 99284